=== PATIENT | female | born 1945 ===

== ENCOUNTER 2016-03-19 23:04 | Emergency (ER) | payer MEDICARE, MEDICAID ==
[2016-03-19 23:05] VITALS: BMI 34.3
[2016-03-19 23:24] VITALS: BP 117/53; PULSE 85; RESP 17; TEMP 98.9; O2SAT 95
[2016-03-20] MEDS ORDERED: Tmp-Smz 800 mg-160 mg DS Tab PO STA (00:26)
--- NOTE | 2016-03-20 00:30 | ED PDOC ---
Arrival/HPI - General Chief Complaint: Abnormal Skin Integrity Time Seen by Provider: 03/20/16 00:06 Historian: Patient - History of Present Illness Narrative History of Present Illness (Text): 03/20/16 00:30 71yo female with PMHx of ESRD on dialysis, hypertension and diabetes who present to ER for infected cyst on her back. The family members who was by the bedside states patient have had the cyst intermittently for 3years now. States it became infected last year and resolved with antibiotic. It became swollen and painful few days ago. States they were applying warm compress to the area and it opened tonight and they drained it. They said she was given Clindamycin last year for the abscess but she didn't take the medication as was prescribed. States she took one of the clindamycin tonight. She denies pain to the area. Denies fever, chills, any other complaint. Past Medical History - Provider Review Nursing Documentation Reviewed: Yes - Infectious Disease Hx of Infectious Diseases: None - Tetanus Immunization Tetanus Immunization: Unknown - Cardiac Hx Cardiac Disorders: Yes Hx SC: Yes Hx Hypertension: Yes - Pulmonary Hx Chronic Obstructive Pulmonary Disease (COPD): Yes - Neurological Hx Neurological Disorder: No HX Cerebrovascular Accident: Yes (Rt. sided) Hx Paralysis: No - HEENT Hx Cataracts: Yes Hx Glaucoma: Yes - Renal Hx Renal Failure: Yes (On dialysis) - Endocrine/Metabolic Hx Diabetes Mellitus Type 2: Yes - Hematological/Oncological Hx Blood Disorders: Yes Hx Blood Transfusions: Yes Hx Blood Transfusion Reaction: No - Integumentary Hx Dermatological Disorder: Yes Other/Comment: cellulitis, 4cm x 5cm cellulitis to upper back small dry wound in center surrounded by dark red skin, small 1cm round dry wound to left of wound - Musculoskeletal/Rheumatological Hx Arthritis: Yes - Gastrointestinal Hx Gastrointestinal Disorders: No - Genitourinary/Gynecological Hx Genitourinary Disorders: No - Psychiatric Hx Psychophysiologic Disorder: Yes Hx Depression: Yes Hx Emotional Abuse: No Hx Physical Abuse: No Hx Substance Use: No - Past Surgical History Past Surgical History: No Previous - Surgical History Hx Cholecystectomy: Yes Hx Hysterectomy: Yes Other/Comment: lav graft removal graft, wounde debbridement - Anesthesia Hx Anesthesia Reactions: No Hx Malignant Hyperthermia: No - Suicidal Assessment Feels Threatened In Home Enviroment: No Family/Social History - Physician Review Nursing Documentation Reviewed: Yes Family/Social History: Unknown Family HX Smoking Status: Never Smoked Hx Alcohol Use: No Hx Substance Use: No Hx Substance Use Treatment: No Allergies/Home Meds Allergies/Adverse Reactions: Allergies FISH Allergy (Verified 03/19/16 23:17) RASH morphine Allergy (Verified 03/19/16 23:17) ANAPHYLAXIS oxycodone Allergy (Verified 03/19/16 23:17) ANAPHYLAXIS Penicillins Allergy (Verified 03/19/16 23:17) ANAPHYLAXIS steroids Allergy (Uncoded 03/19/16 23:17) ANAPHYLAXIS Home Medications: Home Meds Medication Instructions Recorded Confirmed Albuterol Sulfate [Proair Hfa] 0.09 mg IH Q6 05/30/12 11/18/15 Carvedilol [Coreg] 3.125 mg PO DAILY 05/30/12 11/18/15 Insulin Aspar/Insulin N 70/30 43 units SC PRN PRN 06/15/12 11/18/15 [Novolog Mix 70/30-U/ml 3Ml] Esomeprazole Magnesium [Nexium] 40 mg PO DAILY 10/26/13 11/18/15 Atorvastatin [Lipitor] 0 mg PO DAILY 09/16/15 11/18/15 Clopidogrel [Plavix] 75 mg PO DAILY 09/16/15 11/18/15 Insulin Glargine, Recombina 35 units SC HS 09/16/15 11/18/15 [Lantus] Insulin Lispro [Humalog] 1 units SC PRN PRN 09/16/15 11/18/15 Losartan [Cozaar] 0 mg PO DAILY 09/16/15 11/18/15 Calcium Acetate [Phoslo] 667 mg PO TID 11/18/15 11/18/15 Brimonidine 0.2% [Alphagan 0.2% 1 drop OD Q8 11/19/15 11/19/15 Opht] Latanoprost 0.005% Opht [Xalatan 1 drop OD HS 11/19/15 11/19/15 Opht] Review of Systems - Physician Review All systems were reviewed & negative as marked: Yes - Review of Systems Constitutional: Normal Eyes: Normal ENT: Normal Respiratory: Normal Cardiovascular: Normal Gastrointestinal: Normal Genitourinary Female: Normal Musculoskeletal: Normal Skin: Abscess Neurological: Normal Endocrine: Normal Hemo/Lymphatic: Normal Psychiatric: Normal Physical Exam Vital Signs Reviewed: Yes Vital Signs Temp Pulse Resp BP Pulse Ox 03/19/16 23:18 98.9 F 85 17 117/53 L 95 Temperature: Afebrile Blood Pressure: Normal Pulse: Regular Respiratory Rate: Normal Appearance: Positive for: Well-Appearing, Non-Toxic, Comfortable Pain Distress: None Mental Status: Positive for: Alert and Oriented X 3 Finger Stick Blood Glucose: 273 - Systems Exam Head: Present: Atraumatic, Normocephalic Pupils: Present: PERRL Extroacular Muscles: Present: EOMI Conjunctiva: Present: Normal Mouth: Present: Moist Mucous Membranes Neck: Present: Normal Range of Motion Respiratory/Chest: Present: Clear to Auscultation, Good Air Exchange. No: Respiratory Distress, Accessory Muscle Use Cardiovascular: Present: Regular Rate and Rhythm, Normal S1, S2. No: Murmurs Abdomen: Present: Normal Bowel Sounds. No: Tenderness, Distention, Peritoneal Signs Back: Present: Normal Inspection Upper Extremity: Present: Normal Inspection. No: Cyanosis, Edema Lower Extremity: Present: Normal Inspection. No: Edema Neurological: Present: GCS=15, CN II-XII Intact, Speech Normal Skin: Present: Warm, Dry, Normal Color, Abscess (Opened drained abscess noted on right sided upper back. ). No: Rashes Psychiatric: Present: Alert, Oriented x 3, Normal Insight, Normal Concentration Medical Decision Making ED Course and Treatment: 03/20/16 00:35 Wound cleansed with NS and dressed. Pt tolerated. Pt placed on Bactrim DS and advised to continue with clindamycin as was directed She states she have a surgeon and plans to f/u with her surgeon for removal of the sack. She was advised TRT ER for any new or worsening symptoms. Disposition/Present on Arrival - Present on Arrival Any Indicators Present on Arrival: No History of DVT/PE: Yes History of Uncontrolled Diabetes: Yes Urinary Catheter: No History of Decub. Ulcer: No History Surgical Site Infection Following: None - Disposition Have Diagnosis and Disposition been Completed?: Yes Diagnosis: Abscess Disposition: HOME/ ROUTINE Disposition Time: 00:40 Patient Plan: Discharge Patient Problems: Current Active Problems Problem Status Diagnosed Abscess Acute Mastoiditis of both sides Acute Condition: STABLE Discharge Instructions (ExitCare): Abscess (ED) Additional Instructions: Follow up with your doctor/surgeon Return to ER for any new or worsening symptoms Prescriptions: Sulfamethoxazole/Trimethoprim [Bactrim DS 800 mg-160 mg] 1 tab PO BID #10 tab Referrals: Hardik Ashley MD [Staff Provider] - Follow up with primary
== END 2016-03-20 00:45 | disposition home or self-care (01) ==
LOC: ED 23:04
DX: L02.212 Cutaneous abscess of back [any part, except buttock and flank] (principal); Z88.0 Allergy status to penicillin; I12.0 Hypertensive chronic kidney disease with stage 5 chronic kidney disease or end stage renal disease; N18.6 End stage renal disease; Z99.2 Dependence on renal dialysis; E11.9 Type 2 diabetes mellitus without complications; J44.9 Chronic obstructive pulmonary disease, unspecified
CPT/HCPCS: 82948; 99282; J7030

== ENCOUNTER 2016-06-15 14:25 | Emergency (ER) | payer OTHER, MEDICAID ==
[2016-06-15 14:26] VITALS: BMI 34.3
[2016-06-15 14:56] VITALS: BP 118/70; PULSE 94; RESP 20; TEMP 99.4; O2SAT 96
--- NOTE | 2016-06-15 15:38 | ED PDOC ---
Arrival/HPI - General Chief Complaint: Trauma Time Seen by Provider: 06/15/16 15:16 Historian: Patient - History of Present Illness Narrative History of Present Illness (Text): 06/15/16 15:33 71yo female with PMH history of Diabets, hypertension, COPD, ESRD and on hemodialysis who present with the son by the bedside for complaint right hip. lower back, thigh and knee pain s/p trauma. The son states he fell on Friday and Friday(yesterday). she reports mechanical fall. She usually walks with a walker. states her knee hit an object in her bathroom and she fell backward. Admits to LOC. Took Tylenol with some relieve yesterday. Denies urinary/fecal incontinence, focal weakness, nausea, vomiting, abdominal pain, saddle anesthesia, any other complaint. Past Medical History - Provider Review Nursing Documentation Reviewed: Yes - Infectious Disease Hx of Infectious Diseases: None - Tetanus Immunization Tetanus Immunization: Unknown - Reproductive Menopause: Yes - Cardiac Hx Cardiac Disorders: Yes Hx OK: Yes Hx Hypertension: Yes - Pulmonary Hx Chronic Obstructive Pulmonary Disease (COPD): Yes - Neurological Hx Neurological Disorder: No HX Cerebrovascular Accident: Yes (Rt. sided) Hx Paralysis: No - HEENT Hx Cataracts: Yes Hx Glaucoma: Yes - Renal Date of Last Dialysis Treatment: 06/14/16 Hx Renal Failure: Yes (On dialysis) - Endocrine/Metabolic Hx Diabetes Mellitus Type 2: Yes - Hematological/Oncological Hx Blood Disorders: Yes Hx Blood Transfusions: Yes Hx Blood Transfusion Reaction: No - Integumentary Hx Dermatological Disorder: Yes Other/Comment: cellulitis, 4cm x 5cm cellulitis to upper back small dry wound in center surrounded by dark red skin, small 1cm round dry wound to left of wound - Musculoskeletal/Rheumatological Hx Arthritis: Yes - Gastrointestinal Hx Gastrointestinal Disorders: No - Genitourinary/Gynecological Hx Genitourinary Disorders: No - Psychiatric Hx Psychophysiologic Disorder: Yes Hx Depression: Yes Hx Emotional Abuse: No Hx Physical Abuse: No Hx Substance Use: No - Past Surgical History Past Surgical History: No Previous - Surgical History Hx Cholecystectomy: Yes Hx Hysterectomy: Yes Other/Comment: lav graft removal graft, wounde debbridement - Anesthesia Hx Anesthesia Reactions: No Hx Malignant Hyperthermia: No - Suicidal Assessment Feels Threatened In Home Enviroment: No Family/Social History - Physician Review Nursing Documentation Reviewed: Yes Family/Social History: Unknown Family HX Smoking Status: Never Smoked Hx Alcohol Use: No Hx Substance Use: No Hx Substance Use Treatment: No Allergies/Home Meds Allergies/Adverse Reactions: Allergies FISH Allergy (Verified 06/15/16 14:56) RASH morphine Allergy (Verified 06/15/16 14:56) ANAPHYLAXIS oxycodone Allergy (Verified 06/15/16 14:56) ANAPHYLAXIS Penicillins Allergy (Verified 06/15/16 14:56) ANAPHYLAXIS steroids Allergy (Uncoded 03/19/16 23:17) ANAPHYLAXIS Home Medications: Home Meds Medication Instructions Recorded Confirmed Albuterol Sulfate [Proair Hfa] 0.09 mg IH Q6 05/30/12 06/15/16 Carvedilol [Coreg] 3.125 mg PO DAILY 05/30/12 06/15/16 Insulin Aspar/Insulin N 70/30 43 units SC PRN PRN 06/15/12 06/15/16 [Novolog Mix 70/30-U/ml 3Ml] Esomeprazole Magnesium [Nexium] 40 mg PO DAILY 10/26/13 06/15/16 Atorvastatin [Lipitor] 0 mg PO DAILY 09/16/15 06/15/16 Clopidogrel [Plavix] 75 mg PO DAILY 09/16/15 06/15/16 Insulin Glargine, Recombina 35 units SC HS 09/16/15 06/15/16 [Lantus] Insulin Lispro [Humalog] 1 units SC PRN PRN 09/16/15 06/15/16 Losartan [Cozaar] 0 mg PO DAILY 09/16/15 06/15/16 Calcium Acetate [Phoslo] 667 mg PO TID 11/18/15 06/15/16 Brimonidine 0.2% [Alphagan 0.2% 1 drop OD Q8 11/19/15 06/15/16 Opht] Latanoprost 0.005% Opht [Xalatan 1 drop OD HS 11/19/15 06/15/16 Opht] Review of Systems - Physician Review All systems were reviewed & negative as marked: Yes - Review of Systems Constitutional: Normal Eyes: Normal ENT: Normal Respiratory: Normal Cardiovascular: Normal Gastrointestinal: Normal Genitourinary Female: Normal Musculoskeletal: Arthralgias (Right thigh/knee), Back Pain Skin: Normal Neurological: Normal Endocrine: Normal Hemo/Lymphatic: Normal Psychiatric: Normal Physical Exam Vital Signs Reviewed: Yes Vital Signs Temp Pulse Resp BP Pulse Ox 06/15/16 14:51 99.4 F 94 H 20 118/70 96 Temperature: Afebrile Blood Pressure: Normal Pulse: Regular Respiratory Rate: Normal Appearance: Positive for: Well-Appearing, Non-Toxic, Comfortable Pain Distress: None Mental Status: Positive for: Alert and Oriented X 3 - Systems Exam Head: Present: Atraumatic, Normocephalic Pupils: Present: PERRL Extroacular Muscles: Present: EOMI Conjunctiva: Present: Normal Mouth: Present: Moist Mucous Membranes Neck: Present: Normal Range of Motion Respiratory/Chest: Present: Clear to Auscultation, Good Air Exchange. No: Respiratory Distress, Accessory Muscle Use Cardiovascular: Present: Regular Rate and Rhythm, Normal S1, S2. No: Murmurs Abdomen: Present: Normal Bowel Sounds. No: Tenderness, Distention, Peritoneal Signs Back: Present: Paraspinal Tenderness (Lower paralumbar tenderness), Pain with Leg Raise (Right SLR). No: Midline Tenderness Upper Extremity: Present: Normal Inspection. No: Cyanosis, Edema Lower Extremity: Present: NORMAL PULSES, Normal ROM (With pain on internal adduction and flexion of knee'), Tenderness (Right lateral hip; proximal thigh and knee), Neurovascularly Intact. No: Edema, Cyanosis, Swelling, Erythema, Deformity, Temperature Abnormalties Neurological: Present: GCS=15, CN II-XII Intact, Speech Normal, Motor Func Grossly Intact, Normal Sensory Function, Normal Cerebellar Funct, Norm Deep Tendon Reflexes, Memory Normal, Other (No focal neurological deficit) Skin: Present: Warm, Dry, Normal Color, Abscess (very small tender indurated abscess approximately 1 x 1cm noted on left axillae). No: Rashes Psychiatric: Present: Alert, Oriented x 3, Normal Insight, Normal Concentration Medical Decision Making ED Course and Treatment: 06/15/16 17:49 PT in ED with her son for right sided lower back/hip and leg pain s/p trauma. PT was given tylenol in ED. She states she will only take Tylenol. Head CT - No acute finding HIP CT - No acute fracture. Infiltration of greater trochanter secondary to posttraumatic changes noted. Right knee and femur xray - No acute fracture. DJD noted. Result was DW both patient and her son. The son states patient ambulated with difficulty secondary to the pain. She was offered admission for pain control hence she lives by her self. Both her and the son however declined admission. The son states she will stay with the patient until Friday when he goes back to work. Patient also declined any other analgesic rx. States she will take Tylenol at home. While she was in ED she reported small tender abscess on her left axillae. She requested abx for it and admitted to histories of abscess in the past. She Denies fever, chills, any other complaint. - RAD Interpretation Radiology Orders: 06/15/16 15:16 HEAD W/O CONTRAST [CT] Stat 06/15/16 15:17 HIP WITHOUT CONTRAST RIGHT [CT] Stat 06/15/16 15:18 Femur Right [FEMUR 1 VIEW RT] [RAD] Stat KNEE W PATELLA RIGHT 3 VIEW [RAD] Stat - Medication Orders Current Medication Orders: Discontinued Medications Acetaminophen (Tylenol 325mg Tab) 650 mg PO STAT STA Stop: 06/15/16 15:20 Last Admin: 06/15/16 15:59 Dose: 650 mg Disposition/Present on Arrival - Present on Arrival Any Indicators Present on Arrival: No History of DVT/PE: Yes History of Uncontrolled Diabetes: Yes Urinary Catheter: No History of Decub. Ulcer: No History Surgical Site Infection Following: None - Disposition Have Diagnosis and Disposition been Completed?: Yes Diagnosis: Hip sprain, Knee sprain, Back pain, Abscess Disposition: HOME/ ROUTINE Disposition Time: 18:00 Patient Plan: Discharge Condition: STABLE Discharge Instructions (ExitCare): Hip Sprain (ED), Knee Sprain (ED), Abscess ( ED) Additional Instructions: Follow up with your Doctor/Orthopedist Return to ED for any new or worsening symptoms Prescriptions: Clindamycin [Cleocin] 300 mg PO TID #21 cap Referrals: Rivka Lancaster MD [Primary Care Provider] - Follow up with primary Domingo Issa DO [Staff Provider] - Follow up with primary
--- NOTE | 2016-06-15 17:09 | CT ---
PROCEDURE: CT HEAD WITHOUT CONTRAST. HISTORY: LOC secondary to trauma COMPARISON: CT scan brain dated 11/22/2015 TECHNIQUE: Axial computed tomography images were obtained through the head/brain without intravenous contrast. Radiation dose: Total exam DLP = 837.32 mGy-cm. This CT exam was performed using one or more of the following dose reduction techniques: Automated exposure control, adjustment of the mA and/or kV according to patient size, and/or use of iterative reconstruction technique. FINDINGS: HEMORRHAGE: No acute parenchymal, subarachnoid or extra-axial hemorrhage. BRAIN: Mild chronic periventricular white matter ischemic changes seen extending peripherally into the deep white matter both cerebral hemispheres. Mild -moderate generalized volume loss with slight enlargement of the ventricles and sulci. VENTRICLES: No evidence of obstructive hydrocephalus. CALVARIUM: There are no acute calvarial fractures. Scalp calcifications are again noted consistent with underlying IDDM PARANASAL SINUSES: Rounded mucous retention cyst right maxillary sinus. MASTOID AIR CELLS: Unremarkable as visualized. No inflammatory changes. OTHER FINDINGS: Status post right-sided cataract surgery. Findings suggest underlying exophthalmos however correlation with ophthalmologic examination. IMPRESSION: No acute intracranial hemorrhage. Mild chronic white matter ischemic changes. Mild moderate volume loss
--- NOTE | 2016-06-15 17:17 | CT ---
PROCEDURE: CT of the Right Hip. HISTORY: hip pain s/p trauma COMPARISON: None available. TECHNIQUE: Contiguous axial images of the right hip were obtained. Coronal and sagittal reformats were generated. Radiation dose. Total DLP = 667.85 mGy-cm This CT exam was performed using one or more of the following dose reduction techniques: Automated exposure control, adjustment of the mA and/or kV according to patient size, and/or use of iterative reconstruction technique. FINDINGS: BONES: Unremarkable. No fracture or focal lesion. Femoral head maintains normal contour. RIGHT HIP JOINT: No evidence of dislocation. There is joint space narrowing and mild productive changes seen arising from the superolateral margin of the right acetabular rim. Degenerative changes right SI joint and pubic symphysis. . SOFT TISSUES: There may be some minimal infiltration changes within the lateral soft tissues of the right thigh overlying the greater trochanter possibly due to trauma. No evidence of organized collection or hematoma. Extensive vascular calcifications are present. . . IMPRESSION: No acute fractures. Mild DJD. Mild infiltration changes within the subcutaneous tissues overlying the right greater trochanter likely posttraumatic in origin. No evidence of significant hematoma or organized collection
--- NOTE | 2016-06-16 14:29 | RAD ---
PROCEDURE: AP sunrise and cross-table lateral views right knee performed HISTORY: knee pain s/p trauma COMPARISON: None. FINDINGS: BONES: No evidence of acute displaced fracture nor dislocation. JOINTS: Calcifications seen within the medial and lateral compartments of the right knee consistent with chondrocalcinosis. Rule out CPPD. Mild tricompartmental degenerative joint changes are present. Diffuse demineralization. JOINT EFFUSION: Small suprapatellar joint effusion. OTHER FINDINGS: Vascular calcifications. No radiopaque foreign bodies. IMPRESSION: No acute fractures. Intraarticular calcifications consistent with chondrocalcinosis ; rule out CPPD. Mild tricompartmental DJD as detailed above
--- NOTE | 2016-06-16 14:49 | RAD ---
PROCEDURE: Right femur dated 06/15/2016. HISTORY: thigh pain s/p trauma COMPARISON: Correlation made with concurrent CT scan of the pelvis and right hip dated 06/15/2016 comparison also made with concurrent radiographs right knee. TECHNIQUE: Two AP views of the right femur performed. Note that the examination is limited due to the lack of lateral view. FINDINGS: No evidence of acute displaced fracture nor dislocation. Right femoral head is appropriately located within the right acetabulum. Degenerative changes right hip joint present. Vascular calcifications are also present. There are calcifications within the medial and lateral compartments of the right knee consistent with chondrocalcinosis. Rule out CPPD. IMPRESSION: Limited study demonstrating no definitive fracture. DJD right hip. Chondrocalcinosis of the right knee; rule out CPPD
== END 2016-06-15 18:11 | disposition home or self-care (01) ==
LOC: ED 14:25
DX: S73.101A Unspecified sprain of right hip, initial encounter (principal); S83.91XA Sprain of unspecified site of right knee, initial encounter; W19.XXXA Unspecified fall, initial encounter; M54.9 Dorsalgia, unspecified; L02.412 Cutaneous abscess of left axilla; I12.0 Hypertensive chronic kidney disease with stage 5 chronic kidney disease or end stage renal disease; N18.6 End stage renal disease; Z99.2 Dependence on renal dialysis; E11.9 Type 2 diabetes mellitus without complications

== ENCOUNTER 2016-08-09 21:57 | Observation (INO) | payer OTHER ==
[2016-08-09 21:57] VITALS: BMI 34.3
--- NOTE | 2016-08-09 22:38 | ED PDOC ---
Arrival/HPI - General Chief Complaint: Dizziness/Lightheaded Time Seen by Provider: 08/09/16 22:38 Historian: Patient, Family (Son) - History of Present Illness Narrative History of Present Illness (Text): 08/09/16 22:37 Debby Olguin is 71 year old female, whose past medical history includes ESRD ( hemodialysis on M/W/F), diabetes, and hypertension, who presents to the Emergency department status post syncopal episode yesterday while coming out of the shower. Encounter translated in full by patient's son, who feels comfortable translating and denies an official peace officer. Patient states she hit the posterior side of her head on the toilet while falling and is currently complaining of dizziness. Patient was fully dialyzed earlier today. Patient also reports some retrosternal burning, notes she had a history of GERD and symptoms are consistent with previous episodes of acid reflux. Patient denies any chest pain, shortness of breath, nausea, vomiting, diarrhea, back pain, neck pain, headache, focal neurological deficits, vision changes, or any other complaints. PMD: Dr. Lancaster Time/Duration: < week (yesterday) Symptom Course: Unchanged Activities at Onset: Light Context: Standing, Home Past Medical History - Provider Review Nursing Documentation Reviewed: Yes - Infectious Disease Hx of Infectious Diseases: None - Tetanus Immunization Tetanus Immunization: Unknown - Cardiac Hx Cardiac Disorders: Yes Hx OR: Yes Hx Hypertension: Yes - Pulmonary Hx Chronic Obstructive Pulmonary Disease (COPD): Yes - Neurological Hx Neurological Disorder: No HX Cerebrovascular Accident: Yes (Rt. sided) Hx Paralysis: No - HEENT Hx Cataracts: Yes Hx Glaucoma: Yes - Renal Date of Last Dialysis Treatment: 06/14/16 Hx Renal Failure: Yes (On dialysis) - Endocrine/Metabolic Hx Diabetes Mellitus Type 2: Yes - Hematological/Oncological Hx Blood Disorders: Yes Hx Blood Transfusions: Yes Hx Blood Transfusion Reaction: No - Integumentary Hx Dermatological Disorder: Yes Other/Comment: cellulitis, 4cm x 5cm cellulitis to upper back small dry wound in center surrounded by dark red skin, small 1cm round dry wound to left of wound - Musculoskeletal/Rheumatological Hx Arthritis: Yes - Gastrointestinal Hx Gastrointestinal Disorders: No - Genitourinary/Gynecological Hx Genitourinary Disorders: No - Psychiatric Hx Psychophysiologic Disorder: Yes Hx Depression: Yes Hx Emotional Abuse: No Hx Physical Abuse: No Hx Substance Use: No - Past Surgical History Past Surgical History: No Previous - Surgical History Hx Cholecystectomy: Yes Hx Hysterectomy: Yes Other/Comment: lav graft removal graft, wounde debbridement - Anesthesia Hx Anesthesia Reactions: No Hx Malignant Hyperthermia: No - Suicidal Assessment Feels Threatened In Home Enviroment: No Family/Social History - Physician Review Nursing Documentation Reviewed: Yes Family/Social History: Unknown Family HX Smoking Status: Never Smoked Hx Alcohol Use: No Hx Substance Use: No Hx Substance Use Treatment: No Allergies/Home Meds Allergies/Adverse Reactions: Allergies FISH Allergy (Verified 06/15/16 14:56) RASH morphine Allergy (Verified 06/15/16 14:56) ANAPHYLAXIS oxycodone Allergy (Verified 06/15/16 14:56) ANAPHYLAXIS Penicillins Allergy (Verified 06/15/16 14:56) ANAPHYLAXIS steroids Allergy (Uncoded 03/19/16 23:17) ANAPHYLAXIS Home Medications: Home Meds Medication Instructions Recorded Confirmed Albuterol Sulfate [Proair Hfa] 0.09 mg IH Q6 05/30/12 06/15/16 Carvedilol [Coreg] 3.125 mg PO DAILY 05/30/12 06/15/16 Insulin Aspar/Insulin N 70/30 43 units SC PRN PRN 06/15/12 06/15/16 [Novolog Mix 70/30-U/ml 3Ml] Esomeprazole Magnesium [Nexium] 40 mg PO DAILY 10/26/13 06/15/16 Atorvastatin [Lipitor] 0 mg PO DAILY 09/16/15 06/15/16 Clopidogrel [Plavix] 75 mg PO DAILY 09/16/15 06/15/16 Insulin Glargine, Recombina 35 units SC HS 09/16/15 06/15/16 [Lantus] Insulin Lispro [Humalog] 1 units SC PRN PRN 09/16/15 06/15/16 Losartan [Cozaar] 0 mg PO DAILY 09/16/15 06/15/16 Calcium Acetate [Phoslo] 667 mg PO TID 11/18/15 06/15/16 Brimonidine 0.2% [Alphagan 0.2% 1 drop OD Q8 11/19/15 06/15/16 Opht] Latanoprost 0.005% Opht [Xalatan 1 drop OD HS 11/19/15 06/15/16 Opht] Review of Systems - Physician Review All systems were reviewed & negative as marked: Yes Physical Exam - Physical Exam Narrative Physical Exam (Text): - Review of Systems Constitutional: Normal. absent: Fatigue, Weight Change, Fevers Eyes: Normal ENT: Normal Respiratory: Normal absent: SOB, Cough, Sputum Cardiovascular: +syncope absent: Chest pain, Palpitations Gastrointestinal: Normal absent: Abdominal pain, Diarrhea, Nausea, Vomiting Genitourinary: Normal. absent: Dysuria, Frequency, Hematuria Musculoskeletal: Normal. absent: Arthralgias, Back Pain, Neck Pain Skin: Normal Neurological: +dizziness absent: Focal Weakness Endocrine: Normal Hemo/Lymphatic: Normal Psychiatric: Normal - Physical exam Patient appears age appropriate, speaking full sentences without difficulty Head atraumatic. No nasal bone deformity or tenderness, no facial or jaw pain/ swelling. No neck midline tenderness, thoracic and lumbar spine with no midline tenderness. Pt moving b/l upper and lower extremities without difficulty, 5/5 strength, with full active and passive ROM. Distal neurovasc fully intact. Abd soft/nt/nd, no hematomas, no peritoneal signs. Neg. pelvic rock. - Systems Exam Head: Present: Atraumatic, Normocephalic Pupils: Present: PERRL Extraocular Muscles: Present: EOMI Conjunctiva: Present: Normal Mouth: Present: Moist Mucous Membranes Neck: Present: Normal Range of Motion. No: MIDLINE TENDERNESS, Paraspinal Tenderness Respiratory/Chest: Present: Clear to Auscultation, Good Air Exchange. No: Respiratory Distress, Accessory Muscle Use, Tachypneic Cardiovascular: Present: Regular Rate and Rhythm, Normal S1, S2, Peripheral Pulses Present. No: Murmurs Abdomen: Present: Normal Bowel Sounds, No: Tenderness, Peritoneal Signs, Rebound, Guarding, Distention Back: Present: Normal Inspection. No: Midline Tenderness, Paraspinal Tenderness Upper Extremity: Present: Normal Inspection. No: Cyanosis, Edema Lower Extremity: Present: Normal Inspection. No: Edema Neurological: Present: GCS=15, Speech Normal, cranial nerves II through XII fully intact with no cerebellar abnormality, neuro-sensory fully intact. No focal neurological deficits. Skin: Present: Warm, Dry, Normal Color. No: Rashes Psychiatric: Present: Alert, Oriented x 3, Normal Insight, Normal Concentration Vital Signs Reviewed: Yes Vital Signs Temp Pulse Resp BP Pulse Ox 08/10/16 02:04 81 18 120/57 L 93 L 08/10/16 00:16 88 18 141/68 93 L 08/09/16 22:18 97.5 F L 98 H 18 142/78 98 Temperature: Afebrile Blood Pressure: Normal Pulse: Regular Respiratory Rate: Normal Appearance: Positive for: Well-Appearing, Non-Toxic, Comfortable Pain Distress: None Mental Status: Positive for: Alert and Oriented X 3 Medical Decision Making ED Course and Treatment: 08/09/16 22:37 Impression: 71 year old female presents s/p syncopal episodes 2 days with dizziness. Exam in benign. Differential Diagnosis include but are not limited to: syncope Plan: -- CT Head w/o contrast -- EKG -- Chest X-ray -- Labs, cardiac enzymes -- Tylenol -- Protonix -- Reassess and disposition Prior Visits: Notes and results from previous visits were reviewed. On 06/15/2016, pt was seen in the Emergency department right hip pain, lower back pain, thigh and knee pain s/p mechanical fall and left axilla abscess. [facility]. Progress Notes: EKG: Ordered, reviewed, and independently interpreted the EKG. Rate : 92 BPM Rhythm : NSR Interpretation : No ST-segment elevations or depressions, no T-wave inversions, normal intervals. Comparison : No acute change from 11/22/2015. 08/10/16 00:34 Reviewed radiology, Chest X-ray shows cardiomegaly, no obvious infiltrates or effusions. CT Head shows: Dictated and Authenticated by: Tomer Tena MD FINDINGS: Brain: Mild atrophy. No intracranial hemorrhage. No mass. No definite edema. Ventricles: No hydrocephalus. Bones/joints: No acute fracture. Soft tissues: Unremarkable. Vasculature: Atherosclerotic disease of intracranial arteries. Sinuses: Minimal focal mucosal thickening or fluid of RIGHT sphenoid sinus. Mastoid air cells: Partial opacification of mastoids, present on previous examination. IMPRESSION: 1. No acute intracranial abnormality. Acute infarction may be CT occult within first 24 hours. If a focal deficit persists, consider followup CT or MRI for further evaluation. 2. Mastoid disease. 3. Incidental/non-acute findings are described above. Medical service paged. 08/10/16 01:[address] Duncan in detail, who is aware and agrees with plan. Accepts pt in to his service. Pt will go to Telemetry observation. Requests Dr. Bah, Dr. Hensley, and Dr. Snow on consult. Discussed results and hospital observation plan with pt and son, who are aware and verbalize understanding. - Lab Interpretations Lab Results: 08/09/16 23:06 08/09/16 23:06 Lab Results 08/09/16 23:06: Sodium 139, Potassium 4.5, Chloride 99, Carbon Dioxide 30, Anion Gap 15, BUN 14, Creatinine 3.0 H, Est GFR ( Amer) 19, Est GFR (Non- Af Amer) 15, Random Glucose 294 H, Calcium 9.6, Total Bilirubin 0.5, AST 36, ALT 39, Alkaline Phosphatase 217 H, Lactate Dehydrogenase 420, Total Creatine Kinase 31 L, Troponin I 0.01 D, Total Protein 8.4 H, Albumin 3.8, Globulin 4.6 , Albumin/Globulin Ratio 0.8 L 08/09/16 23:06: PT 11.2, INR 1.04, APTT 28.9 08/09/16 23:06: WBC 6.1, RBC 2.66 L, Hgb 10.1 L, Hct 32.7 L, MCV 122.9 H, MCH 38.0 H, MCHC 30.9 L, RDW 14.2, Plt Count 154, MPV 10.2, Gran % 73.3 H, Lymph % ( Auto) 18.9 L, Harper % (Auto) 5.2, Eos % (Auto) 2.4, Baso % (Auto) 0.2, Gran # 4.50, Lymph # 1.2, Harper # 0.3, Eos # 0.2, Baso # 0.01 I have reviewed the lab results: Yes - RAD Interpretation Radiology Orders: 08/09/16 23:01 HEAD W/O CONTRAST [CT] Stat CHEST PORTABLE [RAD] Stat Catheterization Laboratory Technician: ED Physician, Radiologist - EKG Interpretation Interpreted by ED Physician: Yes Type: 12 lead EKG Comparison: Com.w/previous EKG - Medication Orders Current Medication Orders: Aspirin (Ecotrin) 81 mg PO DAILY COUNT INCLUDES THE [facility] Last Admin: 08/11/16 09:55 Dose: 81 mg Atorvastatin Calcium (Lipitor) 20 mg PO DIN COUNT INCLUDES THE [facility] Last Admin: 08/10/16 18:53 Dose: 20 mg Clindamycin HCl (Cleocin) 300 mg PO TID COUNT INCLUDES THE [facility] PRN Reason: Protocol Last Admin: 08/11/16 09:54 Dose: 300 mg Clopidogrel Bisulfate (Plavix) 75 mg PO DAILY COUNT INCLUDES THE [facility] Last Admin: 08/11/16 09:55 Dose: 75 mg Enoxaparin Sodium (Lovenox) 30 mg SC DAILY COUNT INCLUDES THE [facility] PRN Reason: Protocol Insulin Detemir (Levemir) 35 unit SC HS COUNT INCLUDES THE [facility] Last Admin: 08/10/16 23:07 Dose: 35 unit Insulin Human Regular (Humulin R Low) 0 units SC ACHS COUNT INCLUDES THE [facility] PRN Reason: Protocol Last Admin: 08/11/16 11:27 Dose: 2 units Losartan Potassium (Cozaar) 50 mg PO DAILY COUNT INCLUDES THE [facility] Last Admin: 08/11/16 09:54 Dose: 50 mg Metoprolol Tartrate (Lopressor) 25 mg PO BID COUNT INCLUDES THE [facility] Last Admin: 08/11/16 09:55 Dose: 25 mg Pantoprazole Sodium (Protonix Ec Tab) 40 mg PO 0600 COUNT INCLUDES THE [facility] Last Admin: 08/11/16 06:25 Dose: 40 mg Sevelamer HCl (Renagel) 1,600 mg PO TID COUNT INCLUDES THE [facility] Last Admin: 08/11/16 09:55 Dose: 1,600 mg Discontinued Medications Acetaminophen (Tylenol 325mg Tab) 975 mg PO STAT STA Stop: 08/09/16 23:18 Last Admin: 08/09/16 23:27 Dose: 975 mg Acetaminophen (Tylenol 325mg Tab) 650 mg PO ONCE STA Stop: 08/10/16 11:48 Last Admin: 08/10/16 13:41 Dose: 650 mg Re-Assess: MAR Pain/Vitals Document 08/10/16 14:41 DC (Rec: 08/10/16 18:54 DC [id number]) Pain Reassessment Is This A Pain ReAssessment? Yes Presence of Pain Presence of Pain No Enoxaparin Sodium (Lovenox) 70 mg SC Q24H COUNT INCLUDES THE [facility] PRN Reason: Protocol Last Admin: 08/10/16 16:17 Dose: 70 mg Pantoprazole Sodium (Protonix Inj) 40 mg IVP STAT STA Stop: 08/09/16 23:04 Last Admin: 08/09/16 23:09 Dose: 40 mg - Scribe Statement The provider has reviewed the documentation as recorded by the Leeanna Junior All medical record entries made by the Leeanna were at my direction and personally dictated by me. I have reviewed the chart and agree that the record accurately reflects my personal performance of the history, physical exam, medical decision making, and the department course for this patient. I have also personally directed, reviewed, and agree with the discharge instructions and disposition. Disposition/Present on Arrival - Present on Arrival Any Indicators Present on Arrival: No History of DVT/PE: Yes History of Uncontrolled Diabetes: Yes Urinary Catheter: No History of Decub. Ulcer: No History Surgical Site Infection Following: None - Disposition Have Diagnosis and Disposition been Completed?: Yes Diagnosis: Syncope Disposition: HOSPITALIZED Disposition Time: 01:25 Patient Plan: Observation Condition: FAIR
[2016-08-09 23:20] LABS: ADD MANUAL DIFF? NO
[2016-08-09 23:23] LABS: BASO # 0.01 K/mm3 (0.0-2.0); BASO % 0.2 % (0.0-3.0); EOS # 0.2 (0.0-0.7); EOS % 2.4 % (1.5-5.0); GRAN % 73.3 % (50.0-68.0); HEMATOCRIT 32.7 % (36.0-48.0); LYMPH # 1.2 (1.2-3.4); LYMPH % 18.9 % (22.0-35.0); MEAN CELL VOLUME 122.9 fL (80.0-105.0); MEAN CORPUSCULAR HGB CONC 30.9 g/dl (31.0-37.0); MEAN PLATELET VOLUME 10.2 fl (7.0-11.0); MONO # 0.3 (0.1-0.6); MONO % 5.2 % (1.0-6.0); PLATELET COUNT 154 10^3/uL (120.0-450.0); RED CELL DISTRIBUTION WIDTH 14.2 % (11.5-14.5); WHITE BLOOD COUNT 6.1 10^3/ul (4.5-11.0)
[2016-08-09 23:34] LABS: INR 1.04 (0.93-1.08); PARTIAL THROMBOPLASTIN TIME 28.9 Seconds (23.7-30.8)
[2016-08-09 23:38] LABS: ALB/GLOB RATIO 0.8 (1.1-1.8); BILIRUBIN,TOTAL 0.5 mg/dL (0.2-1.3); CALCIUM 9.6 mg/dL (8.4-10.5); POTASSIUM 4.5 mmol/L (3.6-5.0); TOTAL PROTEIN 8.4 g/dL (5.8-8.3)
[2016-08-09 23:55] LABS: TROPONIN I 0.01 ng/mL
--- NOTE | 2016-08-10 00:32 | CT ---
EXAM: CT Head Without Intravenous Contrast CLINICAL HISTORY: 71 years old, female; Signs and symptoms; Dizziness; Additional info: Syncope TECHNIQUE: Axial computed tomography images of the head/brain without intravenous contrast. This CT exam was performed using one or more of the following dose reduction techniques: automated exposure control, adjustment of the mA and/or kV according to patient size, and/or use of iterative reconstruction technique. COMPARISON: CT - HEAD W/O CONTRAST 06/15/2016 4:48:21 PM FINDINGS: Brain: Mild atrophy. No intracranial hemorrhage. No mass. No definite edema. Ventricles: No hydrocephalus. Bones/joints: No acute fracture. Soft tissues: Unremarkable. Vasculature: Atherosclerotic disease of intracranial arteries. Sinuses: Minimal focal mucosal thickening or fluid of RIGHT sphenoid sinus. Mastoid air cells: Partial opacification of mastoids, present on previous examination. IMPRESSION: 1. No acute intracranial abnormality. Acute infarction may be CT occult within first 24 hours. If a focal deficit persists, consider followup CT or MRI for further evaluation. 2. Mastoid disease. 3. Incidental/non-acute findings are described above.
--- NOTE | 2016-08-10 09:32 | RAD ---
HISTORY: cough COMPARISON: 11/18/2015 FINDINGS: LUNGS: No active pulmonary disease. PLEURA: No significant pleural effusion identified, no pneumothorax apparent. CARDIOVASCULAR: Mild cardiomegaly OSSEOUS STRUCTURES: No significant abnormalities. VISUALIZED UPPER ABDOMEN: Normal. OTHER FINDINGS: Right-sided dialysis catheter IMPRESSION: No active disease.
--- NOTE | 2016-08-10 12:42 | CON ---
DATE: 08/10/2016 CHIEF COMPLAINT: Syncope. HISTORY OF PRESENT ILLNESS: This is a 71-year-old woman with history of end-stage renal disease on h emodialysis Friday, Friday and Friday, diabetes, hypertension, who came to the hospital status pos t -syncopal episode while coming out of the shower. The patient was getting bathed by her homeland security program specialist and had passed out, hit her head on the toilet, but no loss of consciousness, no concussion symptoms. Currently, she is no longer dizzy. She denies any headache at this time. She was given Tylenol fo r her headaches. Her CAT scan showed no acute intracranial abnormality. She is sitting up in a marcial r, following commands without any difficulty. No history of seizures. PAST MEDICAL HISTORY: Hypertension, diabetes, end-stage renal disease on hemodialysis Friday, and Friday. REVIEW OF SYSTEMS: A 14-point review of systems negative except for the HPI. ALLERGIES: ALLERGIC TO FISH, MORPHINE, OXYCODONE, PENICILLIN, STEROIDS. SOCIAL HISTORY: No illicit drug use, smoking, or ETOH abuse. FAMILY HISTORY: Noncontributory. MEDICATIONS: Reviewed via nurse's reconciliation sheet. PHYSICAL EXAMINATION: VITAL SIGNS: Temperature of 98, pulse rate of 79, blood pressure 118/69, respiratory rate of 18, oxy gen saturation 98% via room air. GENERAL: The patient is sitting up in bed in no acute distress. HEENT: Atraumatic, normocephalic. PERRLA. Extraocular muscles intact. NECK: Supple, no JVD, no adenopathy noted. LUNGS: Clear to auscultation. No adventitious sounds. HEART: S1, S2, normal rate and rhythm. No murmurs, rubs, or gallops. ABDOMEN: Soft, nontender, nondistended. Bowel sounds are present. EXTREMITIES: No clubbing, no cyanosis. Peripheral pulses 2+ felt bilaterally. NEUROLOGIC: The patient is alert, oriented to person, place, month and year. Speech is fluent witho ut any errors. Cranial nerves II-XII are intact. MOTOR: Moves all extremities equally. Toes downgoing bilaterally. SENSORY: Decreased light touch and pinprick up to the calves bilaterally. Decreased vibration of th e toes. DTRs 2+ throughout and 1 at the ankles. COORDINATION: [id number] intact. GAIT: Deferred for now. LABORATORIES: Sodium is 139, potassium 4.5, chloride of 99, carbon dioxide 30, BUN of 14, creatinine of 3. Random glucose of 294. ASSESSMENT AND PLAN: This is a 71-year-old woman with history of diabetes, hypertension, end-stage r enal disease on Mondays, Wednesdays and Fridays for dialysis, who presents post-syncopal event after getting bathed in the shower. Her syncope is most likely a vasovagal type of phenomenon secondary to transient cerebral hypoperfusion. This is not a seizure. At this time, recommend: 1. Keep her blood sugars between 140 to 180. 2. Gentle hydration and follow up with nephrology in regards to her end-stage renal disease. 3. Monitor electrolytes and correct accordingly and get a PT evaluation. No further neurological wo rkup needed at this time. We will sign off. Dario Hensley MD cc: [phone] TT: 08/10/2016 12:42:27 Confirmation # [id number] Dictation # [id number] tn
--- NOTE | 2016-08-10 14:01 | CARD ---
APPROVED REPORT EKG Measurement Heart [id number] NM [id number] <Conclusion> Normal sinus rhythm Possible Anterior infarct, age undetermined Abnormal ECG
[2016-08-10] MEDS ORDERED: Enoxaparin 80 mg Syringe SC SCH (14:15)
[2016-08-10 14:28] LABS: TROPONIN I 0.01 ng/mL
[2016-08-10 20:54] LABS: TROPONIN I 0.01 ng/mL
--- NOTE | 2016-08-10 21:16 | CON ---
DATE: 08/10/2016 SERVICE: Cardiology REASON FOR CONSULTATION AND FOLLOWUP: Cardiac evaluation, history of coronary artery disease, admitt ed with dizziness, neck pain and back pain. BRIEF CLINICAL HISTORY: This is a 71-year-old female with a past medical history of coronary artery disease, status post OH, admitted to [facility], remained for ICU and then floor for 10 days who came in with a complaint of headache, dizziness and back pain. Denies any chest pain, de nies any shortness of breath, denies any palpitation. PAST MEDICAL HISTORY: Significant for end-stage renal disease on dialysis Friday, Friday and ay, hypertension, diabetes, history of coronary artery disease, status post a stent in December at [facility]. SOCIAL HISTORY: Denies smoking. Denies any history of alcohol abuse. Previous cardiac workup: [facility]. According to the patient, the workup was done there with them. Denies any chest pain, shortness of breath, any palpitation. PAST SURGICAL HISTORY: Significant for history of AV fistula and shunt. CURRENT MEDICATIONS: Include Cozaar, insulin, clopidogrel 75 mg, clindamycin, Coreg, atorvastatin, a lbuterol. ALLERGIES: FISH, MORPHINE, OXYCODONE, PENICILLIN, STEROID. REVIEW OF SYSTEMS: As per HPI. PHYSICAL EXAMINATION: VITAL SIGNS: Temperature afebrile, heart rate 79, blood pressure 182/69. HEENT: PERRLA. Extraocular muscles intact. NECK: Supple. No carotid bruit or thyromegaly. CHEST: Clear to auscultation. HEART: S1, S2 regular. ABDOMEN: Soft. EXTREMITIES: Clubbing and cyanosis negative. EKG shows normal sinus, poor R-wave progression, heart rate 92. Blood workup as follows: WBC ____, hemoglobin ____, hematocrit 32.7, platelet count 154. Chemistry shows sodium ____, potassium 4.5, chloride ____, carbon dioxide 30, anion gap of 15, BUN ____ creatin ine 3. IMPRESSION: End-stage renal disease on dialysis Friday, Friday and Friday, history of coronary ar muna disease, history of a stent in 12/2015, admitted to [facility], diabetes, hypert ension, hyperlipidemia, obesity, being followed by Dr. ____ group according to patient. Workup was d one by ____ group. RECOMMENDATION: We will add on third set of enzymes, CPK and troponin as well ____ negative, we will discontinue telemetry. No further cardiac workup. The patient needs to be followed with ____ nigel am[facility]. No evidence of acute OH so far, no evidence of acute coronary syndrome, but we will follow the second set of enzymes and will make the decision. We will follow with you. Thank you, Dr. Duncan, for providing the opportunity in taking care of this patient. Joss Bah MD cc: [id number] TT: 08/10/2016 14:30:23 Confirmation # [id number] Dictation # [id number] rn
[2016-08-10] MEDS ORDERED: Insulin Detemir 100 units/ml Vial (Levemir) SC SCH (22:00)
[2016-08-10] MEDS: Insulin Reg-LOW-Coverage SC SCH (23:04)
[2016-08-11 01:19] VITALS: O2SAT 100
[2016-08-11] MEDS ORDERED: Pantoprazole 40 mg EC Tab PO SCH (06:00)
[2016-08-11 06:15] VITALS: RESP 19
[2016-08-11 07:29] LABS: ADD MANUAL DIFF? NO
[2016-08-11 08:01] LABS: BASO # 0.03 K/mm3 (0.0-2.0); BASO % 0.4 % (0.0-3.0); EOS # 0.2 (0.0-0.7); EOS % 3.1 % (1.5-5.0); GRAN # 4.86 (1.4-6.5); GRAN % 69.5 % (50.0-68.0); HEMATOCRIT 34.5 % (36.0-48.0); LYMPH # 1.4 (1.2-3.4); LYMPH % 20.6 % (22.0-35.0); MEAN CELL VOLUME 121.1 fL (80.0-105.0); MEAN CORPUSCULAR HEMOGLOBIN 37.9 pg (25.0-35.0); MEAN CORPUSCULAR HGB CONC 31.3 g/dl (31.0-37.0); MEAN PLATELET VOLUME 10.4 fl (7.0-11.0); MONO # 0.5 (0.1-0.6); MONO % 6.4 % (1.0-6.0); PLATELET COUNT 162 10^3/uL (120.0-450.0); RED CELL DISTRIBUTION WIDTH 14.2 % (11.5-14.5)
[2016-08-11 08:02] LABS: BLOOD UREA NITROGEN 31 mg/dL (7-21); CALCIUM 9.4 mg/dL (8.4-10.5); CARBON DIOXIDE 27 mmol/L (21-33); CHLORIDE 100 mmol/L (98-107); CHOLESTEROL 78 mg/dL (130-200); GFR AFRICAN-AMERICAN 10; GLUCOSE,RANDOM 143 mg/dL (70-110); SODIUM 139 mmol/L (132-148)
[2016-08-11 08:17] LABS: TROPONIN I < 0.01 ng/mL
[2016-08-11] MEDS: Insulin Reg-LOW-Coverage SC SCH ×2 (09:37→11:27)
[2016-08-11 12:47] VITALS: BP 104/74; PULSE 68; TEMP 98.4
--- NOTE | 2016-08-11 15:47 | CON ---
DATE: 08/11/2016 The patient admitted for Dr. Duncan. REFERRING PHYSICIAN: Dr. Duncan REASON FOR CONSULTATION: Evaluation of a patient known to us, history of end-stage renal disease who presents with a fall and possible syncopal episode while coming out of the shower. HISTORY OF PRESENT ILLNESS: The patient is a 71-year-old female with a history of end-stage renal disease on chronic maintenance hemodialysis at [facility] Friday, Friday, Friday, last dialysis was Friday, history of GERD, history of hypertension, history of insulin-dependent juan betes mellitus with diabetic nephropathy, history of asthma, history of ASHD, status post PTCA stent, history of a failed AV fistula with an indwelling right PermCath. History of anemia secondary to ch ronic kidney disease, secondary hyperparathyroidism, and hyperlipidemia. The patient presents with a near syncopal episode. She fell or perhaps stumbled coming out of the shower. The patient was brou ght to the Emergency Room for evaluation and admitted to observation on telemetry. We are asked to e valuate patient to provide dialysis services as necessary. PAST MEDICAL HISTORY: Significant for ESRD, GERD, hypertension, IDDM, diabetic nephropathy, asthma, ASHD, anemia, secondary hyperparathyroidism and hyperlipidemia. HOME MEDICATIONS: Include that of losartan, eyedrops, insulin, Nexium, Plavix, Cleocin, Coreg, PhosL o, Alphagan, Lipitor, and albuterol. ALLERGIES: THE PATIENT IS ALLERGIC TO FISH, MORPHINE, OXYCODONE, PENICILLIN AND STEROIDS. CURRENT MEDICATIONS IN HOSPITAL: Include that of Cleocin, Cozaar, Ecotrin, insulin, Lipitor, Lopress or, Plavix, Protonix, and Renagel. SOCIAL HISTORY: No history of cigarette smoking, no history of alcohol use. FAMILY HISTORY: Reviewed and is noncontributory. REVIEW OF SYSTEMS: Ten plus systems reviewed with the patient, all negative except for what is noted above. PHYSICAL EXAMINATION: GENERAL: The patient is currently comfortable, ambulating in the room on telemetry. VITAL SIGNS: Blood pressure ranging from 137-160 systolic, diastolic 62-104. Pulse rate 90. Temper ature 98.7, respiratory rate 19. Pulse ox is 100%. HEENT: Normocephalic, atraumatic. Conjunctivae are pink. Sclerae are nonicteric. Pupils equal, re active to light and accommodation. Extraocular muscles are intact. NECK: Supple, no neck vein distention, no thyromegaly, no lymphadenopathy, no bruits. CHEST: Clear to auscultation and percussion. No rales, no rhonchi, no wheezing. Positive PermCath right chest wall. CARDIOVASCULAR: Regular rate and rhythm without audible murmurs, rubs, or gallops. ABDOMEN: Soft. Bowel sounds normal. No rebound, no guarding, no masses. EXTREMITIES: Show no cyanosis, clubbing or edema. Distal lower extremity pulses are 1-2+. NEUROLOGIC: Shows her to be alert, oriented x 3 with no gross focal, motor or sensory deficits noted . IMAGING: Admitting head CT is negative for acute findings. Admitting chest x-ray is negative. Admi tting EKG shows a normal sinus rhythm. On telemetry, patient remains in sinus rhythm. LABORATORIES: CBC: White blood cell count 7.0, hemoglobin 10.8 with a platelet count of 162,000. C oags are normal. Chemistries show normal electrolytes. Potassium was 5.0 today. BUN 31 with a crea tinine of 5.2, glucose is 143. Calcium is 9.4. CPK is negative. Troponins are negative. Cholester ol values are normal. TSH level is normal. ASSESSMENT: 1. Status post fall, perhaps near syncopal episode. No evidence for any cardiac etiology. Neurolog ical evaluation to date has been negative. The patient continues to be monitored on telemetry. 2. End-stage renal disease. The patient will continue Friday, Friday, Friday dialysis. She is s cheduled for dialysis tomorrow and if she is discharged later today, this can happen in the outpatien t setting. 3. History of gastroesophageal reflux disease, currently stable on proton pump inhibitor therapy. 4. History of hypertension. Blood pressure control is acceptable on present medical therapy. 5. Insulin dependent diabetes mellitus. Continue long-acting and sliding scale insulin. 6. History of asthma. The patient uses albuterol on a p.r.n. basis. 7. History of arteriosclerotic heart disease, status post percutaneous transluminal coronary angiopl asty stent, currently stable. No evidence of any ongoing coronary ischemia. 8. History of anemia. This is secondary to chronic kidney disease. The patient will receive Aranes p as per protocol. 9. History of secondary hyperparathyroidism. We will check a phosphorus level and start patient on binder therapy. The patient should continue a renal diet. 10. Hyperlipidemia. The patient will continue diet and statin therapy. PLAN: 1. From renal standpoint, patient appears to be stable. The patient can be continued to be monitore d in outpatient setting. She has been seen by cardiology and cleared. The patient has also been see n by neurology. The patient has been cleared. 2. Hemodialysis tomorrow. Again, can take place in the outpatient setting if patient is discharged. Otherwise, patient will receive it in the hospital. 3. Continue patient on all outpatient medications. 4. Continue to monitor patient on telemetry while an inpatient. Thank you for letting me partake and share in the care of our mutual patient. Nishant Mack MD cc: [phone] TT: 08/11/2016 15:45:54 Confirmation # [id number] Dictation # [id number]
--- NOTE | 2016-08-11 22:45 | PN ---
DATE: 08/11/2016 REASON FOR CONSULTATION AND FOLLOWUP: Cardiac evaluation, history of coronary artery disease, admitt ed with dizziness, neck pain and back pain. BRIEF CLINICAL HISTORY: A 71-year-old female with a past medical history significant for ID in Decem cy[place], being followed by ____ group. Denies any chest pain, shortness of breath, any palpitation. PHYSICAL EXAMINATION: VITAL SIGNS: Temperature afebrile, heart rate 90, blood pressure 137/62. HEENT: PERRLA. Extraocular muscles intact. NECK: Supple. No carotid bruits. No thyromegaly. CHEST: Clear to auscultation. HEART: S1, S2 regular. ABDOMEN: Soft. EXTREMITIES: Clubbing and cyanosis negative. LABORATORY DATA: Blood workup as follows: WBC 7, hemoglobin 10.8, hematocrit 34.5, platelet count 1 62. Chemistry shows sodium ____, potassium 5, chloride 100, carbon dioxide ____, anion gap of 17, BU N ____, creatinine 5.2. IMPRESSION AND PLAN: Acute kidney injury, worsening. No evidence of acute myocardial infarction. N o evidence of acute coronary syndrome. Troponin remains flat at 0.01 in the face of ____ kidney inju ry. Diabetes, hypertension, hyperlipidemia, history of coronary artery disease, history of percutane ous transluminal coronary angioplasty in January at [facility], being followed by Dr Calabrese ____ group, admitted with back pain and neck pain. So far, the troponin remains negative. No furth er cardiac workup is warranted, asymptomatic, being followed by ____ group. Upon discharge, jonathon ent will be followed there. In the interim, continue atorvastatin, continue aspirin, continue losart an, continue clopidogrel. We will discontinue enoxaparin because kidney function is getting worse. We will change to ____ subQ q. 24 hours. We will discontinue ____ q. 24 to ____ for deep venous thro mbosis prophylaxis. We will discontinue telemetry as well as cardiovascular system is stable. No fu rther cardiac workup is planned. We will resume aspirin and Plavix. Joss Bah MD cc: [id number] TT: 08/11/2016 13:11:49 Confirmation # [id number] Dictation # [id number] rn
[2016-08-12] MEDS ORDERED: Enoxaparin 30 mg Syringe SC SCH (10:00)
--- NOTE | 2016-08-12 11:18 | DS ---
DATE OF DISCHARGE SUMMARY: 08/11/2016 The patient was seen by cardiology, Dr. Bah and neurology, Dr. Dario Hensley, also seen by nephrolog ist, Dr. Mack. The patient does not need the dialysis at this time. She will get it in the [facility] next day. No new complaints. She is eating. She is happy. No new complaint. PHYSICAL EXAMINATION: VITAL SIGNS: Stable. On discharge date here, her vitals are as follows: Temperature 98.4, heart ra te 68. Blood pressure is 104/74, respirations 19. HEAD AND NECK: Normal. No JVD, no thyromegaly. CHEST: Clear, good air entry. CARDIAC: First and second sounds are normal. ABDOMEN: Soft, obese, nontender. EXTREMITIES: No edema. NEUROLOGIC: Normal. This patient is seen by cardiology and neurology, cleared for discharge. DISCHARGE DIAGNOSES: 1. Syncope, unclear etiology. She is stable. She has no new complaint. We will discharge the jonathon ent to be followed as outpatient. 2. Hypertension, diabetes, hypercholesterolemia, chronic renal failure. The patient should do hemod ialysis as outpatient. 3. Morbid obesity. May benefit from diet control and dietary medications including Victoza and such . CURRENT MEDICATION ON DISCHARGE: Cozaar 50 mg p.o. daily, Xalatan eyedrops, Humalog, and Lantus insu franklin 35 units at bedtime plus Humalog. The patient is also getting Nexium, Plavix 75 once a day, Core g 3.125 b.i.d. The patient is also taking clindamycin 300 t.i.d., advised to follow up with the doct or who gave it to her. PhosLo 667 t.i.d. The patient is not taking that anymore. So follow up with the wind turbine controls engineer. Continue Lipitor 20 mg p.o. daily, Ventolin inhalers, and Alphagan eyedrops for g laucoma. Discharge home. Huey Duncan MD cc: [phone] TT: 08/12/2016 11:17:32 matthew
--- NOTE | 2016-08-12 11:48 | HP ---
History and physical was done on 08/10/2016. The patient is a 71-year-old female, came in with possible syncope and she was admitted for evaluatio n by Emergency Room. HISTORY OF PRESENT ILLNESS: A 71-year-old female, history of diabetes, hypertension; chronic renal f ailure, on dialysis. The patient came in to the ER post syncope episode the day before coming and sh enrico was concerned about it. She has no chest pain. She did not lose her consciousness. The patient c urrently she is alert, awake, oriented. She denied any nausea, vomiting, fever or any chills, any ot her complaints. PAST MEDICAL HISTORY: As I mentioned, chronic renal failure, hypertension, diabetes, dialysis patien t, glaucoma and COPD. ALLERGIES: FISH, MORPHINE, OXYCODONE, PENICILLIN, STEROIDS. FAMILY HISTORY: Noncontributory. REVIEW OF SYSTEMS: As in the present illness. She feels fine except sometimes she feels tired and w eak. PHYSICAL EXAMINATION: VITAL SIGNS: Temperature 98.4, heart rate 79, blood pressure 118/69, respiration 18, saturation 98%. HEAD AND NECK: Normal. No JVD, no thyromegaly. CHEST: Clear, good air entry. CARDIAC: First sound, second sound normal. ABDOMEN: Soft, obese, nontender. EXTREMITIES: No edema. NEUROLOGIC: Normal. LABORATORY DATA: When she came in: White count 6.1, hemoglobin 10.1, hematocrit 12.7, platelets 154 . Chemistry: Sodium 139, potassium 4.5, chloride 99, bicarb 30, BUN 14, creatinine 3, blood sugar 2 94. Liver enzymes are normal except tereso phos 217. Troponin 0.01. Also, patient had, when she came in, she had a CT of the head that was negative, no bleed. Chest x-ray was reported no active lung d isease and no significant pleural effusion. The patient also had an EKG which shows normal sinus rhy thm, possible anterior infarction, age undetermined. IMPRESSION AND PLAN: 1. A 71-year-old female came in with syncope, who was admitted to telemetry. Will get a cardiology consult (Dr. Bah), neurology consult (Dr. Dario Hensley). Will monitor the patient on telemetry. C ardiac enzymes. Resume all her meds. 2. For diabetes, continue insulin and insulin coverage. 3. Chronic renal failure, on hemodialysis. Will get a nephrology consult on the case. PLAN: Continue current medications. Follow up clinically. Huey Duncan MD cc: [phone] TT: 08/12/2016 11:47:18 mn
== END 2016-08-11 14:05 | disposition home or self-care (01) ==
LOC: ED 21:57 → ERH 08-10 01:28 → 2RNO 08-10 03:27
PROVIDERS: ADMIT Internal Medicine; ATTEND Internal Medicine
DX: R55 Syncope and collapse (principal); E11.22 Type 2 diabetes mellitus with diabetic chronic kidney disease; N18.6 End stage renal disease; Z99.2 Dependence on renal dialysis; E11.21 Type 2 diabetes mellitus with diabetic nephropathy; I12.0 Hypertensive chronic kidney disease with stage 5 chronic kidney disease or end stage renal disease; I25.10 Atherosclerotic heart disease of native coronary artery without angina pectoris; N25.81 Secondary hyperparathyroidism of renal origin; D63.1 Anemia in chronic kidney disease; M54.9 Dorsalgia, unspecified; N17.9 Acute kidney failure, unspecified; E78.5 Hyperlipidemia, unspecified; K21.9 Gastro-esophageal reflux disease without esophagitis; J44.9 Chronic obstructive pulmonary disease, unspecified; R51 Headache; R42 Dizziness and giddiness; E78.00 Pure hypercholesterolemia, unspecified; I25.2 Old myocardial infarction; Z95.5 Presence of coronary angioplasty implant and graft; Z79.4 Long term (current) use of insulin; Z91.81 History of falling; Z79.02 Long term (current) use of antithrombotics/antiplatelets
CPT/HCPCS: 36415; 70450; 71010; 80048; 80053; 80061; 82550; 82948; 83036; 83615; 84443; 84484; 85025; 85610; 85730; 93005; 96374; 97116; 97162; 99285; C9113; G0378; G8978; G8979; J1650

== ENCOUNTER 2016-11-12 21:31 | Observation (INO) | payer OTHER ==
[2016-11-12 21:32] VITALS: BMI 34.3
--- NOTE | 2016-11-13 00:37 | ED PDOC ---
Arrival/HPI - General Chief Complaint: Trauma Time Seen by Provider: 11/12/16 21:42 Historian: Patient - History of Present Illness Narrative History of Present Illness (Text): 11/13/16 00:36 A 71 year old female presents to the emergency department complaining of bilateral knee pain, right rib pain and left wrist pain s/p fall. Patient reports she fell trying to use walker. Patient denies any headache, dizziness, vision changes, nausea, vomiting, back pain, neck pain or any other complaints at this time. Symptom Onset: Sudden Symptom Course: Unchanged Activities at Onset: Rest Context: Home Past Medical History - Provider Review Nursing Documentation Reviewed: Yes - Infectious Disease Hx of Infectious Diseases: None - Tetanus Immunization Tetanus Immunization: Unknown - Cardiac Hx Cardiac Disorders: Yes Hx IN: Yes Hx Hypertension: Yes - Pulmonary Hx Chronic Obstructive Pulmonary Disease (COPD): Yes - Neurological Hx Neurological Disorder: No HX Cerebrovascular Accident: Yes (Rt. sided) Hx Paralysis: No - HEENT Hx Cataracts: Yes Hx Glaucoma: Yes - Renal Date of Last Dialysis Treatment: 06/14/16 Hx Renal Failure: Yes (On dialysis) - Endocrine/Metabolic Hx Diabetes Mellitus Type 2: Yes - Hematological/Oncological Hx Blood Disorders: Yes Hx Blood Transfusions: Yes Hx Blood Transfusion Reaction: No - Integumentary Hx Dermatological Disorder: Yes Other/Comment: cellulitis, 4cm x 5cm cellulitis to upper back small dry wound in center surrounded by dark red skin, small 1cm round dry wound to left of wound - Musculoskeletal/Rheumatological Hx Arthritis: Yes - Gastrointestinal Hx Gastrointestinal Disorders: No - Genitourinary/Gynecological Hx Genitourinary Disorders: No - Psychiatric Hx Psychophysiologic Disorder: Yes Hx Depression: Yes Hx Emotional Abuse: No Hx Physical Abuse: No Hx Substance Use: No - Past Surgical History Past Surgical History: No Previous - Surgical History Hx Cholecystectomy: Yes Hx Hysterectomy: Yes Other/Comment: lav graft removal graft, wounde debbridement - Anesthesia Hx Anesthesia Reactions: No Hx Malignant Hyperthermia: No - Suicidal Assessment Feels Threatened In Home Enviroment: No Family/Social History - Physician Review Nursing Documentation Reviewed: Yes Family/Social History: No Known Family HX Smoking Status: Never Smoked Hx Alcohol Use: No Hx Substance Use: No Hx Substance Use Treatment: No Allergies/Home Meds Allergies/Adverse Reactions: Allergies FISH Allergy (Verified 06/15/16 14:56) RASH morphine Allergy (Verified 06/15/16 14:56) ANAPHYLAXIS oxycodone Allergy (Verified 06/15/16 14:56) ANAPHYLAXIS Penicillins Allergy (Verified 06/15/16 14:56) ANAPHYLAXIS steroids Allergy (Uncoded 03/19/16 23:17) ANAPHYLAXIS Home Medications: Home Meds Medication Instructions Recorded Confirmed Albuterol Sulfate [Proair Hfa] 0.09 mg IH Q6 05/30/12 11/12/16 Carvedilol [Coreg] 3.125 mg PO DAILY 05/30/12 11/12/16 Insulin Aspar/Insulin N 70/30 43 units SC PRN PRN 06/15/12 11/12/16 [Novolog Mix 70/30-U/ml 3Ml] Esomeprazole Magnesium [Nexium] 40 mg PO DAILY 10/26/13 11/12/16 Atorvastatin [Lipitor] 20 mg PO DAILY 09/16/15 11/12/16 Clopidogrel [Plavix] 75 mg PO DAILY 09/16/15 11/12/16 Insulin Glargine, Recombina 35 units SC HS 09/16/15 11/12/16 [Lantus] Insulin Lispro [Humalog] 1 units SC PRN PRN 09/16/15 11/12/16 Losartan [Cozaar] 50 mg PO DAILY 09/16/15 11/12/16 Calcium Acetate [Phoslo] 667 mg PO TID 11/18/15 11/12/16 Brimonidine 0.2% [Alphagan 0.2% 1 drop OD Q8 11/19/15 11/12/16 Opht] Latanoprost 0.005% Opht [Xalatan 1 drop OD HS 11/19/15 11/12/16 Opht] Review of Systems - Physician Review All systems were reviewed & negative as marked: Yes - Review of Systems Eyes: absent: Vision Changes Gastrointestinal: absent: Nausea, Vomiting Musculoskeletal: Other (bilateral knee pain, right rib pain, left wrist pain). absent: Back Pain, Neck Pain Neurological: absent: Headache, Dizziness Physical Exam Vital Signs Reviewed: Yes Vital Signs Temp Pulse Resp BP Pulse Ox 11/13/16 03:32 88 18 132/72 99 11/13/16 01:32 86 18 142/78 99 11/12/16 21:32 99.2 F 94 H 16 137/70 100 Temperature: Afebrile Blood Pressure: Normal Pulse: Regular Respiratory Rate: Normal Appearance: Positive for: Well-Appearing, Non-Toxic, Comfortable Pain Distress: None Mental Status: Positive for: Alert and Oriented X 3 - Systems Exam Head: Present: Atraumatic, Normocephalic Pupils: Present: PERRL Extroacular Muscles: Present: EOMI Conjunctiva: Present: Normal Mouth: Present: Moist Mucous Membranes Neck: Present: Normal Range of Motion Respiratory/Chest: Present: Clear to Auscultation, Good Air Exchange. No: Respiratory Distress, Accessory Muscle Use Cardiovascular: Present: Regular Rate and Rhythm, Normal S1, S2. No: Murmurs Abdomen: Present: Normal Bowel Sounds. No: Tenderness, Distention, Peritoneal Signs Back: Present: Normal Inspection Upper Extremity: Present: Normal Inspection. No: Cyanosis, Edema Lower Extremity: Present: Other (ecchymosis of left knee ). No: Edema Neurological: Present: GCS=15, CN II-XII Intact, Speech Normal Skin: Present: Warm, Dry, Normal Color. No: Rashes Psychiatric: Present: Alert, Oriented x 3, Normal Insight, Normal Concentration Medical Decision Making ED Course and Treatment: 11/13/16 00:34 Impression: A 71 year old female with bilateral knee pain, right rib pain and left wrist pain s/p fall. Differential Diagnosis included but are not limited to: bilateral knee pain, right rib pain and left wrist pain r/o fracture Plan: -- EKG -- labs -- CT head -- Radiology knees b/l -- Radiology right ribs and chest -- Radiology left wrist -- Reassess and disposition Prior Visits: Notes and results from previous visits were reviewed. Patient last reported to the emergency department on 08/09/16 for evaluation of dizziness s/p syncopal episode. Progress Notes: 11/13/16 00:44 EKG: Ordered, reviewed, and independently interpreted the EKG. Rate : 93 BPM Rhythm : NSR Interpretation : Nonspecific ST-segment changes, normal intervals. CT Head Without Intravenous Contrast FINDINGS: Brain: Mild atrophy. No intracranial hemorrhage. No mass. No edema. Ventricles: No hydrocephalus. Bones/joints: No acute fracture. Soft tissues: Unremarkable. Vasculature: Atherosclerotic disease of intracranial arteries. Sinuses: Moderate RIGHT maxillary retention cyst. Tiny RIGHT sphenoid retention cyst. Mastoid air cells: Opacification of mastoids, RIGHT greater than LEFT, grossly stable. Orbits: Unremarkable as visualized. IMPRESSION: 1. No intracranial hemorrhage. 2. Incidental/non-acute findings are described above. Dictated and Authenticated by: Tomer Tena MD 11/13/2016 1:31 AM Eastern Time ([place] & [place]) xr bilateral knees and wrsit and ribs neg fx case d/w dr azul accepts case 11/13/16 06:33 - Lab Interpretations Lab Results: 11/13/16 00:32 11/13/16 00:32 Lab Results 11/13/16 00:32: Sodium 144, Potassium 5.3 H, Chloride 104, Carbon Dioxide 26, Anion Gap 19, BUN 24 H, Creatinine 5.4 H, Est GFR ( Amer) 9, Est GFR (Non -Af Amer) 8, Random Glucose 181 H, Calcium 8.5, Total Bilirubin 0.6, AST 28, ALT 20, Alkaline Phosphatase 218 H, Total Protein 8.3, Albumin 4.0, Globulin 4.3 , Albumin/Globulin Ratio 0.9 L 11/13/16 00:32: WBC 7.4, RBC 3.01 L, Hgb 11.2 L, Hct 36.6, MCV 121.6 H, MCH 37.2 H, MCHC 30.6 L, RDW 13.5, Plt Count 139, MPV 10.8, Gran % 67.1, Lymph % ( Auto) 23.3, [place] % (Auto) 8.2 H, Eos % (Auto) 1.3 L, Baso % (Auto) 0.1, Gran # 4.99, Lymph # 1.7, [place] # 0.6, Eos # 0.1, Baso # 0.01 I have reviewed the lab results: Yes - RAD Interpretation Radiology Orders: 11/12/16 22:06 KNEES BILATERAL [RAD] Stat WRIST, LEFT 3 VIEWS [RAD] Stat 11/12/16 22:07 RIBS RIGHT & PA CHEST [RAD] Stat 11/13/16 00:45 HEAD W/O CONTRAST [CT] Stat - EKG Interpretation Interpreted by ED Physician: Yes Type: 12 lead EKG - Medication Orders Current Medication Orders: Acetaminophen (Tylenol 325mg Tab) 650 mg PO Q4H PRN PRN Reason: Pain, Mild (1-3) Last Admin: 11/13/16 05:25 Dose: 650 mg MAR Pain/Vitals Document 11/13/16 05:25 [facility] (Rec: 11/13/16 05:26 [facility]-[id number]) Pain Reassessment Is This A Pain ReAssessment? No Presence of Pain Presence of Pain Yes Pain Scale Used Pain Scale Used Numeric Location Left, Right or Bilateral Left Pain Location Body Site Knee Description Constant Intensity 8 Scale Used Numeric Pain Behavior Facial Grimacing Aggravating Factors Exercise/Activity Alleviating Factors Medication - Scribe Statement The provider has reviewed the documentation as recorded by the Scribe David Hernandez Provider Scribe Attestation: All medical record entries made by the Scribe were at my direction and personally dictated by me. I have reviewed the chart and agree that the record accurately reflects my personal performance of the history, physical exam, medical decision making, and the department course for this patient. I have also personally directed, reviewed, and agree with the discharge instructions and disposition. Disposition/Present on Arrival - Present on Arrival Any Indicators Present on Arrival: No History of DVT/PE: Yes History of Uncontrolled Diabetes: Yes Urinary Catheter: No History of Decub. Ulcer: No History Surgical Site Infection Following: None - Disposition Have Diagnosis and Disposition been Completed?: Yes Diagnosis: Contusion of left knee, Weakness Disposition: HOSPITALIZED Disposition Time: 02:30 Condition: GOOD
[2016-11-13 00:58] LABS: BASO # 0.01 K/mm3 (0.0-2.0); BASO % 0.1 % (0.0-3.0); EOS # 0.1 (0.0-0.7); EOS % 1.3 % (1.5-5.0); GRAN # 4.99 (1.4-6.5); GRAN % 67.1 % (50.0-68.0); HEMATOCRIT 36.6 % (36.0-48.0); LYMPH # 1.7 (1.2-3.4); LYMPH % 23.3 % (22.0-35.0); MEAN CELL VOLUME 121.6 fl (80.0-105.0); MEAN CORPUSCULAR HEMOGLOBIN 37.2 pg (25.0-35.0); MEAN CORPUSCULAR HGB CONC 30.6 g/dl (31.0-37.0); MEAN PLATELET VOLUME 10.8 fl (7.0-11.0); MONO # 0.6 (0.1-0.6); MONO % 8.2 % (1.0-6.0); RED CELL DISTRIBUTION WIDTH 13.5 % (11.5-14.5); WHITE BLOOD COUNT 7.4 10^3/ul (4.5-11.0)
[2016-11-13 01:23] LABS: ALB/GLOB RATIO 0.9 (1.1-1.8); BILIRUBIN,TOTAL 0.6 mg/dL (0.2-1.3); CALCIUM 8.5 mg/dL (8.4-10.5); TOTAL PROTEIN 8.3 g/dL (5.8-8.3)
[2016-11-13 01:35] LABS: POTASSIUM 5.3 mmol/L (3.6-5.0)
--- NOTE | 2016-11-13 02:26 | CT ---
EXAM: CT Head Without Intravenous Contrast CLINICAL HISTORY: 71 years old, female; Injury or trauma; Fall; Initial encounter; Concussion / head injury TECHNIQUE: Axial computed tomography images of the head/brain without intravenous contrast. All CT scans at this facility use one or more dose reduction techniques, viz.: automated exposure control; ma/kV adjustment per patient size (including targeted exams where dose is matched to indication; i.e. head); or iterative reconstruction technique. COMPARISON: CT - HEAD W/O CONTRAST 08/10/2016 12:00:00 AM FINDINGS: Brain: Mild atrophy. No intracranial hemorrhage. No mass. No edema. Ventricles: No hydrocephalus. Bones/joints: No acute fracture. Soft tissues: Unremarkable. Vasculature: Atherosclerotic disease of intracranial arteries. Sinuses: Moderate RIGHT maxillary retention cyst. Tiny RIGHT sphenoid retention cyst. Mastoid air cells: Opacification of mastoids, RIGHT greater than LEFT, grossly stable. Orbits: Unremarkable as visualized. IMPRESSION: 1. No intracranial hemorrhage. 2. Incidental/non-acute findings are described above.
--- NOTE | 2016-11-13 08:59 | RAD ---
PROCEDURE: Radiographs of the Chest and Right Ribs. HISTORY: fall COMPARISON: 08/09/2016 TECHNIQUE: Frontal radiograph of the chest and multiple oblique radiographs of the right ribs were obtained. FINDINGS: RIGHT RIBS: No fracture or focal lesion visualized. Osteopenia LUNGS: Left lateral mid lung zone discoid atelectasis and/or scarring,. There is also some nodular configuration to this bandlike horizontal opacity although not dissimilar to the most recent exam-not appreciated on a 01/04/2013 study. Nodular pleural thickening is 1 consideration. Not appreciated on a CT neck chest exam from 05/20/2014. The nodularity appears less conspicuous on the current study than the 08/09/2016. Its significance is indeterminate PLEURA: No pleural effusion. Left lateral pleural thickening probable some nodular character to the pleural thickening in the mid left lung zone is possible. Some trace focal fluid here is another consideration. No pneumothorax CARDIOVASCULAR: Cardiomegaly. Top-normal pulmonary vasculature Right dialysis catheter tip in superior vena cava - right atrial junction. OTHER FINDINGS: Left axillary stent for left axillary clip. Left upper quadrant have a splenic arterial calcification. Quadrant cholecystectomy clips osseous hypertrophic changes left and right acromioclavicular joint. IMPRESSION: Discoid atelectasis and/or scarring left lateral mid lung zone with bordering left pleural reaction. Although the nodular character to this horizontal opacity is smaller compared to the more recent exam-, its significance, if any is not clear. This is not apparent on much earlier exams. Consider elective noncontrast CT chest follow-up. No right rib fracture.
--- NOTE | 2016-11-13 09:54 | RAD ---
PROCEDURE: Bilateral Knee Radiographs. HISTORY: fall COMPARISON: None. FINDINGS: BONES: Diffuse osteopenia suggests osteoporosis. There is no displaced fracture or suspicious lytic or blastic change bilaterally. JOINTS: There is no subluxation or dislocation bilaterally. Tricompartmental osteoarthritis appreciated manifest by diffuse articular cortical sclerosis and joint space narrowing and limited osteophyte formation. Degenerative meniscal changes are appreciated at the medial and lateral femorotibial compartments bilaterally. SOFT TISSUES: Vascular calcifications are seen posteriorly bilaterally as well as likely phleboliths in the bilateral pretibial soft tissues. . JOINT EFFUSION: There is a bvva-sj-[id number] right suprapatellar bursa effusion, minimal at the left. OTHER FINDINGS: None. IMPRESSION: No acute displaced fracture is identified bilaterally. Diffuse osteopenia suggests osteoporosis or bilateral osteoarthritis is appreciated in all 3 joint compartments.
--- NOTE | 2016-11-13 09:57 | RAD ---
PROCEDURE: Left Wrist Radiographs. HISTORY: fall COMPARISON: None. FINDINGS: BONES: Diffuse osteopenia suggests osteoporosis. No suspicious lytic or blastic change identified. There is no displaced fracture identified at this time. The navicular bone appears intact grossly. Vascular calcifications are appreciated within the soft tissues of the wrist as well as incidentally at the visualized hand and distal forearm. JOINTS: Mild cortical sclerosis appreciate throughout the carpal carpal and carpometacarpal psoas radiocarpal joints. SOFT TISSUES: As above peer OTHER FINDINGS: None. IMPRESSION: Diffuse osteopenia suggests osteoporosis. No displaced fracture identified. No dislocation or subluxation. Degenerative joint changes are seen as discussed above.
[2016-11-13] MEDS ORDERED: [UNRECOGNIZED DRUG - OTHER] SC PRN (10:08)
[2016-11-13] MEDS ORDERED: INSULIN ASPART SC PRN (10:08)
[2016-11-13] MEDS ORDERED: Insulin Lispro (HUMAlog) HIGH Coverage SC PRN (10:08)
[2016-11-13] MEDS ORDERED: INSULIN ASPART PROTAMINE SC PRN (10:08)
[2016-11-13] MEDS ORDERED: Albuterol 0.083% Inhal Sol (2.5 mg/3 mL) UD IH PRN (10:41)
[2016-11-13] MEDS ORDERED: Home Med 1 UNIT OD SCH (10:45)
--- NOTE | 2016-11-13 11:06 | CARD ---
APPROVED REPORT EKG Measurement Heart [id number] <Conclusion> Normal sinus rhythm Possible Anterior infarct, age undetermined Abnormal ECG
[2016-11-13] MEDS: Pantoprazole 40 mg EC Tab PO SCH (11:25)
[2016-11-13] MEDS ORDERED: Albuterol HFA 90 mcg/actuation (8 g) IH SCH (12:00)
[2016-11-13] MEDS: Albuterol 0.083% Inhal Sol (2.5 mg/3 mL) UD IH SCH ×2 (13:07→21:36)
[2016-11-13] MEDS ORDERED: Non Formulary Medication (Brimonidine 0.2% [Alphagan 0.2% Opht] 1 DROP) OD SCH (14:00)
[2016-11-13] MEDS ORDERED: INSULIN GLARGINE SC SCH (22:00)
[2016-11-13] MEDS ORDERED: Latanoprost 2.5 ml Opht Soln OD SCH (22:00)
[2016-11-13] MEDS: Insulin Detemir 100 units/ml Vial (Levemir) SC SCH (22:40)
[2016-11-13] MEDS: Insulin Reg-LOW-Coverage SC SCH (22:59)
[2016-11-14] MEDS: Latanoprost 2.5 ml Opht Soln OD SCH ×2 (00:54→22:32)
--- NOTE | 2016-11-14 03:29 | CON ---
DATE: 11/13/2016 REASON FOR CONSULTATION: End-stage renal disease, hyperkalemia, and need for dialysis. HISTORY OF PRESENTING ILLNESS: A 71-year-old lady, known to me from outpatient follow up, was brought to the emergency room yesterday because of fall at home. The patient reports that she was trying to get to her walker and she fell and complaining of severe pain in her knees, left greater than right. She denies any chest pain. She denies any palpitation. She denies any fevers, chills. In the emergency room, she was found to have [id number] right suprapatellar effusion, minimal effusion on the left, diffuse osteopenia and bilateral osteoarthritis of her knees. She was also found to have potassium of 5.4. Consultation was requested for need for dialysis. PAST MEDICAL AND SURGICAL HISTORY: NIDDM, hypertension, CAD, PTCA stent, ESRD, diabetic retinopathy, anemia of chronic kidney disease, secondary hyperparathyroidism, and severe osteoarthritis. FAMILY HISTORY: Noncontributory. SOCIAL HISTORY: No smoking, no alcohol use, no IV drug abuse. ALLERGIES: MORPHINE, OXYCODONE, PENICILLIN AND STEROIDS. CURRENT MEDICATIONS: DuoNeb, Coreg 3.125 b.i.d., losartan 50, heparin, insulin, Lipitor 20, PhosLo, Plavix, Protonix, and Tylenol. REVIEW OF SYSTEMS: All systems are reviewed, pertinent positives as mentioned in the history of presenting illness, rest unremarkable. PHYSICAL EXAMINATION: GENERAL EXAMINATION: Obese elderly lady lying in bed. VITAL SIGNS: Blood pressure 180/77, heart rate 89, respiratory rate 20 and temperature 98.2. HEENT: Normocephalic, atraumatic, positive pallor. NECK: Supple, no JVD. LUNGS: Bilateral equal air entry, no rales. CARDIAC: S1 and S2, regular rate rhythm, no murmur, no rub. ABDOMEN: Obese, distended, soft, nontender, bowel sounds present. EXTREMITIES: Tenderness of the left suprapatellar region. LABORATORY DATA: WBC 7.4, hemoglobin 11, hematocrit 36.6 and platelets 139. Sodium 144, potassium 5.3, chloride 104, CO2 of 26, BUN 24, creatinine 5.4, glucose 211, calcium 8.5, AST 28, ALT 20 and albumin 4.0. ASSESSMENT: 1. Status post fall, rule out syncope. 2. Non-insulin dependent diabetes mellitus. 3. Hypertension. 4. End-stage renal disease. 5. Hyperkalemia. 6. Anemia. PLAN: 1. Urgent dialysis, use potassium . 2. Pain management. 3. Monitor fingerstick's and continue insulin coverage. 4. Physical therapy. Marlyn Snow MD
[2016-11-14] MEDS: Albuterol 0.083% Inhal Sol (2.5 mg/3 mL) UD IH SCH ×4 (03:30→20:41)
[2016-11-14] MEDS: Insulin Reg-LOW-Coverage SC SCH ×4 (08:34→22:19)
[2016-11-14] MEDS: Pantoprazole 40 mg EC Tab PO SCH (10:13)
[2016-11-14] MEDS: Insulin Detemir 100 units/ml Vial (Levemir) SC SCH ×2 (10:17→22:19)
[2016-11-14 11:33] LABS: TROPONIN I 0.04 ng/mL
--- NOTE | 2016-11-14 14:15 | HP ---
DATE: 11/13/2016 A 71-year-old with history of chronic renal failure, came into the hospital with complaint of generalized weakness; also, she fell with left knee injury. The patient denied any dizziness; denied any chest pain, any nausea or vomiting. HISTORY OF PRESENT ILLNESS: This is 71-year-old female with history of coronary artery disease, chronic renal failure, hypertension, diabetes, came into the hospital with bilateral knee pain, right rib pain, left wrist pain. She fell, she tried to use a walker, but she tripped over and fell. There is no chest pain; no dizziness; no syncope; no headaches; no nausea, vomiting, sweating or any chest pain. PAST MEDICAL HISTORY: As I mentioned, chronic renal failure, on dialysis; hypertension; hypercholesteremia; insulin dependent diabetes; COPD; morbid obesity. ALLERGIES: ALLERGIC MORPHINE, OXYCODONE, PENICILLIN AND STEROIDS; ALL OF THEM GIVE HER ANAPHYLAXIS. FAMILY HISTORY: Noncontributory. REVIEW OF SYSTEMS: She was feeling weak, tired. She has chronic arthritis pain. Denied any chest pain. Denied any dyspnea on exertion. PHYSICAL EXAMINATION: VITAL SIGNS: Temperature 98.5, heart rate 85, blood pressure 159/75, respiratory rate 20 and saturation 94% on room air. HEAD AND NECK: Normal. No JVD. No thyromegaly. CHEST: Clear. No wheeze. CARDIAC: First sound and second sound normal. ABDOMEN: Obese. EXTREMITIES: No edema. NEUROLOGIC: The patient moves all extremities. She is alert, awake and oriented x3. LABORATORY DATA: White count 7.4, hemoglobin 11.2, hematocrit 36.6 and platelets are 139. Her chemistry shows sodium 144, potassium 5.3, chloride 104, bicarb 26, BUN 24, creatinine 5.4, blood sugar 181. Liver function test is normal except increase in alkaline phosphatase 218. The patient also had some x-rays, there were no fractures and she had head CT, there was no bleed and she had electrocardiogram which was normal sinus rhythm, possible anterior infarction, age undetermined, abnormal EKG. No comparison of the old EKG was done. The patient also had some x-rays which showed no right rib fractures and there was some scar in left lateral lung, there was nodular opacity. Also, the patient had knee x-ray, especially left knee, which showed no acute displaced fractures, diffuse osteopenia, osteoporosis, bilateral osteoarthritis in the C compartment. No chest x-ray was reported. IMPRESSION AND PLAN: This is a 71-year-old female with a history of diabetes, hypertension, chronic renal failure, coronary artery disease. We will admit the patient to the medical floor with generalized weakness, get her blood cultures. We will monitor cardiac status, renal consultations and we will follow up clinically or she will get consult with Dr. Issa, x-ray, we will repeat x-ray of the lung and we will follow up clinically, resume all her meds and continue current management. The patient will get also hemodialysis. Huey Duncan MD
[2016-11-14] MEDS: BRIMONIDINE 0.2% OD SCH (22:19)
--- NOTE | 2016-11-15 00:08 | PN ---
DATE: 11/14/2016 SUBJECTIVE: The patient is seen lying in bed. She is arousable. She complains of severe pain in her left knee greater than right. She denies any chest pain. She denies any palpitations. PHYSICAL EXAMINATION: GENERAL: Obese elderly male, lying in bed. VITAL SIGNS: Blood pressure 184/88, heart rate 87, respiratory rate 18, and temperature 98. HEENT: Normocephalic, atraumatic. NECK: Supple. LUNGS: Bilateral equal air entry, bilateral rhonchi, no rhonchi heard. CARDIAC: S1 and S2, regular rate and rhythm. No murmur. No rub. ABDOMEN: Obese, distended, soft, nontender, bowel sounds present. LABORATORY DATA: No new labs available. ASSESSMENT: 1. Status post fall. 2. ? Syncope. 3. Left knee contusion. 4. Ewk-jjcbvgy-habrhhglz diabetes mellitus. 5. Hypertension. 6. End-stage renal disease. 7. Anemia. 8. Chronic kidney disease. 9. Congestive heart failure. PLAN: 1. Dry filtration today, we will try to remove 2.5 to 3 kilograms. 2. Pain management. 3. Monitor fingerstick and continue insulin coverage. 4. Physical therapy. Marlyn Snow MD
[2016-11-15] MEDS: Albuterol 0.083% Inhal Sol (2.5 mg/3 mL) UD IH SCH ×4 (02:52→20:55)
[2016-11-15] MEDS ORDERED: Bupivacaine 0.5% Inj(30mL) IJ ONE (07:09)
[2016-11-15] MEDS ORDERED: MethylPREDNISolone Depo 40 mg/ml Inj IM ONE (07:09)
[2016-11-15] MEDS: BRIMONIDINE 0.2% OD SCH ×3 (07:49→23:07)
[2016-11-15] MEDS: Insulin Reg-LOW-Coverage SC SCH (08:25)
--- NOTE | 2016-11-15 10:15 | CT ---
PROCEDURE: CT of the left knee without contrast HISTORY: lt knee hemarthrosis fell at home COMPARISON: Comparison is made to the previous x-ray of the knees dated 11/12/2016 TECHNIQUE: Axial and reformatted coronal and sagittal CT images of the left knee were obtained without IV contrast administration. Total exam DLP: 136.96 FINDINGS: There is acute nondisplaced fracture at the lateral aspect of the patella. There is a small to moderate amount of left knee joint effusion. There are foci of very low attenuation seen at the upper portion of the suprapatellar joint space and in the anterior aspect of the lower portion of the thigh. Findings may represent foci of air or fat in the joint effusion. There are moderate osteoarthritic changes at the left knee. There are soft tissue calcification including left knee cartilage calcification noted. There is popliteal/Medrano's cyst measures 3 x 1.6 centimeter. Diffuse vascular calcifications seen. IMPRESSION: Acute nondisplaced fracture at the lateral aspect of the left patella. Small to moderate amount of left knee joint effusion. Droplet of low-attenuation air or less likely fat seen in the suprapatellar joint space. Moderate osteoarthritic changes. 3 centimeter medrano cyst. Diffuse soft tissue edema around the left knee suggestive of recent contusion.
[2016-11-15 10:35] LABS: HEMATOCRIT 36.6 % (36.0-48.0); MEAN CELL VOLUME 117.3 fl (80.0-105.0); MEAN CORPUSCULAR HEMOGLOBIN 37.8 pg (25.0-35.0); MEAN CORPUSCULAR HGB CONC 32.2 g/dl (31.0-37.0); MEAN PLATELET VOLUME 10.8 fl (7.0-11.0); RED CELL DISTRIBUTION WIDTH 13.1 % (11.5-14.5); WHITE BLOOD COUNT 6.9 10^3/ul (4.5-11.0)
--- NOTE | 2016-11-15 10:38 | CON ---
DATE: 11/15/2016 HISTORY OF PRESENT ILLNESS: The patient had come into the hospital on 11/13/2016, I made an attempt to see her yesterday, but she was at dialysis and I am back here today, to see her for reported left knee pain. X-ray showed osteoarthritis, mild of her both knees with signs of pyrophosphate, she has calcified meniscus in both knees and today, she has a fusion of her left knee and very little on the right knee and she had a knee immobilizer prior to the emergency room for an injury when she fell at home when trying to move with a walker. She is 71 years old, on dialysis. She has weak muscle tone as it is, so we took out 30 mL of non-clotted blood. No evidence of bone marrow particles, so after the aspiration of the blood, we gave her Depo-Medrol, Marcaine for pain relief and going to sent her for CAT scan to look for a nondisplaced fracture of the osteopenic bones of her left knee, so I will report back when I get the CAT scan of her left knee. In the meantime, she is stable enough to be up out of bed and I will follow her after the CAT scan is done. If it is not fracture, I will get her ambulating and moving about and if it is fracture, we will have to go the next step. I do not think she will need surgery. FINAL DIAGNOSIS: Traumatic hemarthrosis of left knee, to evaluate for a left knee fracture. Domingo Issa DO [facility]PITALDamien
[2016-11-15 11:12] LABS: ALB/GLOB RATIO 0.9 (1.1-1.8); BILIRUBIN,TOTAL 0.7 mg/dL (0.2-1.3); CALCIUM 8.4 mg/dL (8.4-10.5); PHOSPHOROUS 5.5 mg/dL (2.5-4.5); POTASSIUM 5.5 mmol/L (3.6-5.0); TOTAL PROTEIN 7.7 g/dL (5.8-8.3)
[2016-11-15] MEDS: Insulin Lispro (humaLOG) LOW Coverage SC SCH ×3 (12:25→23:08)
[2016-11-15] MEDS: Pantoprazole 40 mg EC Tab PO SCH (16:51)
--- NOTE | 2016-11-15 21:18 | CON ---
DATE: 11/15/2016 LOCATION: The patient is in room 577, bed 2. REASON FOR CONSULTATION: Coronary artery disease, history of fall, contusion of the knee. HISTORY OF PRESENT ILLNESS: A 71-year-old female who only speaks Indonesian through diplomatic interpreter/translator. The patient states that she was using the walker and she tripped. Denies any syncope, denies any chest pain, shortness of breath, palpitations. Associated with fall, the patient is complaining of pain in the left knee and swelling. PAST MEDICAL HISTORY: Significant for end-stage renal failure, the patient has been on regular dialysis 3 times a week, diabetes, hypertension, coronary artery disease status post stent insertion in 12/2015 at [facility]. The patient follows Dr. Sussy De La O, expander machine operator in [facility]. PERSONAL HISTORY: Denies smoking, denies drinking. HOME MEDICATIONS: Included insulin, Cozaar 50 mg daily, Plavix 75 mg daily, Nexium 40 mg daily, Coreg 3.125 p.o. daily, Lipitor 20 daily, albuterol sulfate and nebulizer therapy. REVIEW OF SYSTEMS: All the systems are reviewed. The patient's only complain is also fall while walking with walker and nausea and syncope, complaining pain and swelling on the left knee. Other systems are negative and other systems mentioned as history. ALLERGIES: THE PATIENT STATES THAT SHE IS ALLERGIC TO FISH, MORPHINE, OXYCODONE, PENICILLIN, STEROIDS. PHYSICAL EXAMINATION: VITAL SIGNS: Yesterday blood pressure evaluated 184/88, today is 136/73, respiratory rate 20, pulse 60, and temperature is 98.9. HEENT: Head is normocephalic. Eyes: Pupils are normal. Conjunctivae slightly pale. NECK: JVP low. Carotids are equal. The patient has dialysis catheter right upper chest. LUNGS: Clear. CARDIOVASCULAR: S1 and S2. No rub, no gallop. No click. ABDOMEN: Soft and nontender. No organomegaly. EXTREMITIES: There is no edema, no clubbing or cyanosis. The patient has a swelling of the left knee and marked tenderness on the left knee. LABORATORY DATA: EKG showed normal sinus rhythm. Possible anterior infarct, age undetermined. X-ray of the knee suggestive of nondisplaced fracture ____ of the left patella, small to moderate amount of left knee joint effusion. Osteoarthritis changes, [address] scan of the head, no intracranial hemorrhage, mild atrophy present. Atherosclerotic disease of intracranial arteries. Moderate right maxillary retention cyst. Tiny right sphenoidal retention cyst, opacification of the mastoid right greater than left. DIAGNOSES: Status post fall, left knee injury, hypertension, diabetes, history of coronary artery disease, history of stent insertion involving acute myocardial infarction at [facility] in 12/2015, history of asthma, end-stage renal failure on dialysis 3 times a week, anemia. PLAN: The patient is on Coreg 3.125 p.o. daily, albuterol and nebulizer therapy, Cozaar 50 mg daily, heparin 5000 units subcu q. 12 hours, insulin, Lipitor 20 mg daily, ____ 5 mg daily, Plavix 75 mg daily. We will continue present therapy when the patient go home. She will follow back with Dr. Ssusy De La O, her expander machine operator and she states that they follow her cardiac testing and cardiac workup and cardiac medications. Right now, the patient's cardiac status is stable. Continue present therapy. We will follow. Joss Millan MD
[2016-11-15] MEDS: Latanoprost 2.5 ml Opht Soln OD SCH (23:06)
[2016-11-15] MEDS: Insulin Detemir 100 units/ml Vial (Levemir) SC SCH (23:08)
[2016-11-16] MEDS: Albuterol 0.083% Inhal Sol (2.5 mg/3 mL) UD IH SCH ×4 (01:52→23:05)
[2016-11-16] MEDS: BRIMONIDINE 0.2% OD SCH ×2 (05:27→16:42)
[2016-11-16] MEDS: Insulin Lispro (humaLOG) LOW Coverage SC SCH ×4 (09:13→23:07)
[2016-11-16] MEDS: Pantoprazole 40 mg EC Tab PO SCH (10:42)
--- NOTE | 2016-11-16 17:28 | PN ---
DATE: 11/16/2016 SUBJECTIVE: The patient is seen lying in bed. She is resting comfortably. She does not appear to be in any kind of distress. OBJECTIVE: VITAL SIGNS: Blood pressure 152/61, heart rate 80, respiratory rate 18, temperature 97.9. HEENT: Normocephalic, atraumatic. NECK: Supple, no JVD. LUNGS: Bilateral equal entry, rales. CARDIAC: S1 and S2, regular rate and rhythm, no murmur, no rub. ABDOMEN: Obese, distended, soft, nontender, bowel sounds present. EXTREMITIES: Swelling of the left knee. LABORATORY DATA: No new labs available. MEDICATIONS: Coreg 3.125 b.i.d., Cozaar 50, Flagyl 500 q. 8, heparin, Humalog, loperamide, insulin, Lipitor, amlodipine 5, PhosLo, Plavix, Protonix. ASSESSMENT: 1. Status post fall. 2. Severe profuse diarrhea as per nursing staff. 3. End-stage renal disease. 4. Non-insulin dependent diabetes mellitus. 5. Hypertension. 6. Coronary artery disease. PLAN 1. Check stool for C. Difficile. 2. Agree with empiric Flagyl. 3. Pain management. 4. Monitor fingerstick and continue insulin coverage. 4. Check uric acid levels. Marlyn Snow MD
--- NOTE | 2016-11-16 17:41 | PN ---
DATE: 11/15/2016 SUBJECTIVE: The patient is seen in the dialysis unit. She is awake. She is alert. She is comfortable. She reports feeling better. She denies any pain. She complains of pain in her left knee. She reports that there was fluid aspirated from her left knee. PHYSICAL EXAMINATION: GENERAL: Obese, elderly lady lying in bed in the dialysis unit. VITAL SIGNS: Blood pressure 148/78, heart rate 74, respiratory rate 20, temperature 98.2. HEENT: Normocephalic, atraumatic. NECK: Supple, no JVD. LUNGS: Bilateral equal entry, bilateral equal expansion. CARDIAC: S1 and S2. Regular rate and rhythm. No murmur, no rub. ABDOMEN: Obese, distended, soft, nontender, bowel sounds present. EXTREMITIES: Swelling of the left knee. LABORATORY DATA: WBC 6.9, hemoglobin 11.8, hematocrit 36.6, platelets 143. Sodium 135, potassium 5.5, chloride 97, CO2 of 25, BUN 40, creatinine 5.2, glucose 211, calcium 8.4, phosphorus 5.5, magnesium 2.0. MEDICATIONS: Albuterol, Coreg, Cozaar 50 mg daily, heparin, insulin, Lipitor, amlodipine 5, PhosLo 667 t.i.d., Plavix, Protonix, Tylenol. ASSESSMENT: 1. Status post fall. 2. Left knee effusion/contusion. 3. Yti-xhiwbpz-crtuxggfx diabetes mellitus. 4. Hypertension. 5. Coronary artery disease. 6. End-stage renal disease. PLAN: 1. Stable dialysis. 2. Pain management. 3. Check joint fluid studies. 4. Check uric acid level. 5. Continue pain management. 6. Physical therapy. Marlyn Snow MD
[2016-11-16] MEDS: Latanoprost 2.5 ml Opht Soln OD SCH (22:00)
[2016-11-16] MEDS: Insulin Detemir 100 units/ml Vial (Levemir) SC SCH (23:09)
[2016-11-17] MEDS: BRIMONIDINE 0.2% OD SCH ×4 (00:02→21:31)
[2016-11-17] MEDS: Albuterol 0.083% Inhal Sol (2.5 mg/3 mL) UD IH SCH ×4 (03:24→21:25)
[2016-11-17 07:36] LABS: CALCIUM 8.8 mg/dL (8.4-10.5); URIC ACID 6.8 mg/dL (2.5-6.2)
[2016-11-17 08:36] LABS: POTASSIUM 6.1 mmol/L (3.6-5.0)
[2016-11-17] MEDS: Insulin Lispro (humaLOG) LOW Coverage SC SCH ×4 (08:45→23:17)
[2016-11-17] MEDS ORDERED: Sod Polystyrene Sulf 15 gm/60 ml Oral Susp PO ONE (10:08)
[2016-11-17] MEDS: Pantoprazole 40 mg EC Tab PO SCH (10:50)
[2016-11-17] MEDS ORDERED: Mometasone 0.1% Cream(15 gm) TOP PRN (13:03)
[2016-11-17] MEDS: Mometasone 0.1% Cream(15 gm) TOP PRN ×2 (13:54→21:20)
[2016-11-17] MEDS: Vancomycin 25 MG/ML PO SCH ×2 (14:55→21:37)
[2016-11-17] MEDS: Latanoprost 2.5 ml Opht Soln OD SCH (21:26)
--- NOTE | 2016-11-17 23:21 | PN ---
DATE: 11/14/2016 SUBJECTIVE: The patient is stable. She complains of problem getting her eye drops and today's date she had an extra hemodialysis because of extra fluid. She denied any chest pain. No nausea. No vomiting or any abdominal pain. The patient is legally blind and she uses Xalatan and Alphagan drops, which discussed with the son and the prescription was given to the patient. PHYSICAL EXAMINATION: On 11/14/2016 is as follows: VITAL SIGNS: Temperature is 98, heart rate 92, blood pressure is 180/84, respiration 18 and saturation 96. HEENT AND NECK: Normal. No JVD. No thyromegaly. CHEST: Clear. Good air entry. CARDIAC: First sound and second sound normal. ABDOMEN: Soft, obese and nontender. EXTREMITIES: No edema. NEUROLOGIC: Normal. Left knee has a knee brace and the patient also had seen by Dr. Issa for her left knee trauma. IMPRESSION: 1. Status post fall, the patient tripped over on her walker because of legal blindness and fell with left knee trauma and swelling. Orthopedic consult done by Dr. Issa. 2. Chronic renal failure. We will continue hemodialysis. Dr. Mack, renal consult and Dr. Snow seeing the patient. 3. Legally blind. The patient has glaucoma. Continue Xalatan and Alphagan as directed. 4. Diabetes. We will increase her insulin, continue insulin coverage. 5. Hypertension seems uncontrolled. We will add Norvasc 5 mg extra dose. PLAN: Continue current therapy. Continue hemodialysis. Monitor blood pressure. We will repeat labs, and we will follow up clinically. Huey Duncan MD
[2016-11-17] MEDS: Insulin Detemir 100 units/ml Vial (Levemir) SC SCH (23:23)
--- NOTE | 2016-11-18 03:00 | PN ---
DATE: 11/16/2016 SUBJECTIVE: The patient complained of diarrhea 4 to 5 times today,watery diarrhea. No nausea. The patient is otherwise stable. PHYSICAL EXAMINATION VITAL SIGNS: Temperature 97.9, heart rate 77, blood pressure 125/79, respiration 20, and saturation 97% on room air. HEAD AND NECK: Normal. No JVD. No thyromegaly. CHEST: Clear. Good air entry. CARDIAC: First and second sounds normal. ABDOMEN: Obese, soft and nontender. EXTREMITIES: No edema. NEUROLOGICALLY: Nonfocal, but legally blind. LABORATORY STUDIES: Shows blood sugar in the 150 and hematology is not done. IMPRESSION AND PLAN: 1. Acute diarrhea, etiology rule out infectious. We will get Clostridium diff. We will put the patient on Flagyl and we will follow up clinically. 2. Left knee fracture, status post fall due to trip over a walker, noncardiac. We will continue to monitor. The case was discussed with Dr. Issa. 3. Insulin-dependent diabetes, blood sugar running less than 200. At this time, we will continue current therapy. The patient was advised and encouraged to be eating. She is legally blind, and we will add Nepro can to increase her intake, especially in the hospital to avoid hypoglycemia due to not eating. 4. Chronic renal failure, hyperkalemia, monitor labs. We will order labs in the morning. Continue current therapy. Continue hemodialysis. 5. Hypertension, continue Norvasc and Cozaar. We may consider discontinuing Cozaar, if hyperkalemia continues to be a problem. PLAN: Continue current therapy. Consider rehabilitation after discussing with Dr. Issa. Stool C. diff was sent and follow up clinically. Huey Duncan MD
[2016-11-18] MEDS: Albuterol 0.083% Inhal Sol (2.5 mg/3 mL) UD IH SCH ×4 (03:20→20:05)
--- NOTE | 2016-11-18 03:28 | PN ---
DATE: 11/15/2016 SUBJECTIVE: The patient seems to be having pain over the left knee with movement, but otherwise no nausea, no vomiting. Blood sugar seems stable. No hypoglycemia. The patient otherwise is stable. PHYSICAL EXAMINATION: VITAL SIGNS: Temperature is 98.1, heart rate 86, blood pressure 152/67, and oxygen sat 96% on 2 L. HEAD AND NECK: Normal. No JVD. No thyromegaly. CHEST: Clear. Good air entry. CARDIAC: First sound and second sound normal. ABDOMEN: Obese and nontender. EXTREMITIES: No edema. NEUROLOGIC: Nonfocal. The patient is legally blind. LABORATORY DATA: White count 6.9, hemoglobin 11.8, hematocrit 36.6, and platelets 143. Chemistry shows the following; sodium 135, potassium 5.5, chloride 97, bicarbonate 25, BUN 40, creatinine 5.2, blood sugar 211 and phosphorus 5.5, alkaline phosphatase 181. IMPRESSION AND PLAN: 1. Chronic renal failure, continue hemodialysis. Nephrology consult on the case, Dr. Snow. 2. Hypertension, stable. Continue Norvasc plus Cozaar. 3. Glaucoma, currently on Alphagan and Xalatan, stable. No new complaints. 4. Anemia. The patient's chronic renal failure could be multifactorial. She will benefit from gastroenterology evaluation including colonoscopy. 5. Diabetes, insulin dependent. Continue insulin coverage regimen as it is, and we will follow up clinically. 6. Left knee, CT positive for fractures. We will discuss whether needs surgery or rehabilitation. The patient lives by herself, cannot walk, and we will discuss further treatment based on whether the patient needs surgery or sent for rehab. Continue current therapy. Huey Duncan MD
--- NOTE | 2016-11-18 04:39 | PN ---
DATE: 11/17/2016 SUBJECTIVE: The patient is seen lying in bed. She is comfortable. She does not appear to be in any kind of distress. PHYSICAL EXAMINATION GENERAL: Elderly lady lying in bed. VITAL SIGNS: Blood pressure 152/79, heart rate 78, respiratory rate 20, and temperature 98. HEENT: Normocephalic and atraumatic. Positive pallor.. NECK: Supple, no JVD. LUNGS: Bilateral equal air entry, bilateral rhonchi, no rales. CARDIAC: S1 and S2, regular rate and rhythm, no murmur, no rub. ABDOMEN: Obese, distended, soft and nontender. Bowel sounds present. EXTREMITIES: Swelling of the left knee, tenderness of the left knee. LABORATORY DATA: WBC 6.9, hemoglobin 11.8, hematocrit 36.6 and platelets 143. Sodium 135, potassium 6.1, chloride 97, CO2 of 22, BUN 85, creatinine 8.5, glucose 227 and calcium 8.8. Uric acid 6.8. Cultures negative. CURRENT MEDICATIONS: Albuterol, Coreg, mometasone, heparin, insulin, loperamide, rosuvastatin, amlodipine, PhosLo, Plavix, pantoprazole, Tylenol and vancomycin 250 q.i.d. ASSESSMENT: 1. Hypokalemia 2. Diarrhea. 3. Status post fall. 4. Left knee contusion. 5. Obesity. 6. Non-insulin dependent diabetes mellitus. 7. Hypertension. 8. End stage renal disease. PLAN: 1. Kayexalate 30 gram . 2. Pain management for left knee contusion. 3. Fingerstick monitoring and insulin coverage. 4. Dialysis tomorrow on the morning shift. Marlyn Snow MD
[2016-11-18] MEDS: BRIMONIDINE 0.2% OD SCH (06:22)
[2016-11-18] MEDS: Insulin Lispro (humaLOG) LOW Coverage SC SCH ×4 (08:48→21:51)
[2016-11-18] MEDS: Vancomycin 25 MG/ML PO SCH ×4 (09:47→21:29)
--- NOTE | 2016-11-18 10:15 | PN ---
DATE: 11/16/2016 SUBJECTIVE: We aspirated fluid from her left knee filled with blood and followup CAT scan done to rule out occult fractures, did show a fracture of the lateral process of the patella in the sagittal plane, she is completely stable, we are not going to restrict her ability to ambulate or get up out of bed. She does not even need a brace for this kind of fracture, it will always going to take 6 weeks to heal but every week it will feel much better and with her restrictions anyway with her being on dialysis and in renal failure, she will adapt to this minor disability well, so we will get her up out of bed, ambulate with a walker and out of brace, and follow her closely. She does feel bad just by taking her fluid out of her knee and giving her a Depo-Medrol for the osteoarthritis of her left knee and the fractures will heal just fine as long as she does not fall again. FINAL DIAGNOSIS: Stable left patella fracture, lateral facet. PROGNOSIS: For full recovery of that left knee and fracture will heal uneventfully. Domingo Issa DO
[2016-11-18] MEDS ORDERED: DiphenhydrAMINE 50 mg/ml Inj IVP ONE (12:00)
[2016-11-18 12:04] LABS: BASO # 0.02 K/mm3 (0.0-2.0); BASO % 0.3 % (0.0-3.0); EOS # 0.1 (0.0-0.7); EOS % 0.9 % (1.5-5.0); GRAN # 4.97 (1.4-6.5); GRAN % 75.1 % (50.0-68.0); HEMATOCRIT 33.3 % (36.0-48.0); LYMPH # 0.8 (1.2-3.4); LYMPH % 12.4 % (22.0-35.0); MEAN CELL VOLUME 113.7 fl (80.0-105.0); MEAN CORPUSCULAR HEMOGLOBIN 38.2 pg (25.0-35.0); MEAN CORPUSCULAR HGB CONC 33.6 g/dl (31.0-37.0); MEAN PLATELET VOLUME 10.3 fl (7.0-11.0); MONO # 0.8 (0.1-0.6); MONO % 11.3 % (1.0-6.0); WHITE BLOOD COUNT 6.6 10^3/ul (4.5-11.0)
[2016-11-18 12:11] LABS: BILIRUBIN,TOTAL 0.5 mg/dL (0.2-1.3); CALCIUM 8.7 mg/dL (8.4-10.5); MAGNESIUM 2.1 mg/dL (1.7-2.2); PHOSPHOROUS 6.9 mg/dL (2.5-4.5); POTASSIUM 4.9 mmol/L (3.6-5.0); TOTAL PROTEIN 8.1 g/dL (5.8-8.3)
--- NOTE | 2016-11-18 14:57 | PN ---
DATE: 11/18/2016 REASON FOR CONSULTATION AND FOLLOWUP: Coronary artery disease, history of fall, and contusion of the left knee. SUBJECTIVE: The patient is lying flat in bed without chest pain, shortness of breath, palpitation, and she said pain in the left knee is also less. PHYSICAL EXAMINATION VITAL SIGNS: Blood pressure 177/77, yesterday blood pressure was 150/65 and 141/94, on 11/16/2016 blood pressure was 137/71, respirations 20, pulse 82, and temperature is 98.3. HEENT: Head is normocephalic. Eyes: Pupils are normal. Conjunctivae slightly pale. NECK: JVP low. Carotids are equal. Thorax AP diameter is normal. CARDIOVASCULAR: S1 and S2. LUNGS: Clear. ABDOMEN: Soft. No tenderness. No organomegaly.. EXTREMITIES: No clubbing. No cyanosis. Left knee is slightly swollen and tender and ecchymotic. LABORATORY DATA: WBC 6.9, hemoglobin 11.8, hematocrit 36.6, platelets 143. Yesterday, sodium 135, potassium 6.1, BUN 85, creatinine 8.5, and random sugar 218. DIAGNOSES: Status post fall, left knee injury, hypertension, diabetes, coronary artery disease, history of stent insertion following acute myocardial infarction at [facility] in 12/2015, history of asthma, end-stage renal failure on dialysis 3 times a week, anemia, and hyperkalemia. PLAN: The patient follows with Dr. Sussy De La O, [employer] in [facility]. She sees her regularly and follow her cardiac workup and medication with her. Clinically, the patient's cardiac status is stable. The patient does not have any anginal symptoms or any other cardiac symptoms, so we will continue carvedilol 3.125 mg p.o. daily. The patient is also getting heparin 5000 units subcutaneous q.12 hours, Protonix 40 mg daily, vancomycin 250 mg p.o. q.i.d., Plavix 75 mg daily, amlodipine 5 mg daily, we will increase it to 10 mg daily because the blood pressure is elevated. Atorvastatin 20 mg daily, insulin as ordered. The patient received Kayexalate on 11/17/2016 due to high potassium, and loperamide 2 mg p.o. q.i.d. Dialysis as per Renal. The patient is being followed by Renal. We will continue to follow with you. Joss Millan MD
[2016-11-18] MEDS: Mometasone 0.1% Cream(15 gm) TOP PRN (16:53)
[2016-11-18] MEDS: Pantoprazole 40 mg EC Tab PO SCH (16:55)
--- NOTE | 2016-11-18 17:36 | CP.PCM.CON ---
History of Present Illness - History of Present Illness History of Present Illness: Surgery Consult for Dr. Tejada We are being consulted for AV access HPI: Patient is a 71yo female who presented to the hospital after falling at home. She came complaining of b/l knee pain R. rib pain and L. wrist pain. A knee xray showed a patellar fracture that was deemed stable by Dr. Maloney. She is a dialysis patient that has been getting dialysis for the past 5 years. She had a Left brachial - subclavian fistula placed in 2013 that failed and was never used for dialysis. She has been getting dialysis every MWF thru a Right Subclavian permacath. patient is right handed. PMH: CAD, CKD, HTN, IDDM, COPD, Coronary stent 2015 PSH: AV fistula left brachial-subclavian in 2013, Hysterectomy, Wound debridment FH: unremarkable SH: Former smoker, denies drinking alcohol Meds: Insulin, plavix, Coreg Allergies: morphine, oxycodone, PCN Review of Systems - Constitutional Constitutional: As Per HPI - EENT Eyes: As Per HPI Ears: As Per HPI Nose/Mouth/Throat: As Per HPI - Breasts Breasts: As Per HPI - Cardiovascular Cardiovascular: As Per HPI - Respiratory Respiratory: As Per HPI - Gastrointestinal Gastrointestinal: As Per HPI - Genitourinary Genitourinary: As Per HPI - Reproductive: Female Reproductive:Female: As Per HPI - Menstruation Menstruation: As Per HPI - Musculoskeletal Musculoskeletal: As Per HPI - Integumentary Integumentary: As Per HPI - Neurological Neurological: As Per HPI - Psychiatric Psychiatric: As Per HPI - Endocrine Endocrine: As Per HPI - Hematologic/Lymphatic Hematologic: As Per HPI Past Patient History - Infectious Disease Hx of Infectious Diseases: None - Tetanus Immunizations Tetanus Immunization: Unknown - Past Social History Smoking Status: Never Smoked - CARDIAC Hx Cardiac Disorders: Yes Hx Hypertension: Yes - PULMONARY Hx Chronic Obstructive Pulmonary Disease (COPD): Yes - NEUROLOGICAL HX Cerebrovascular Accident: Yes (right sided) - HEENT Hx Cataracts: Yes Hx Glaucoma: Yes - RENAL Hx Renal Failure: Yes (on dialysis) - ENDOCRINE/METABOLIC Hx Diabetes Mellitus Type 2: Yes - HEMATOLOGICAL/ONCOLOGICAL Hx Blood Disorders: Yes Hx Blood Transfusions: Yes Hx Blood Transfusion Reaction: No - INTEGUMENTARY Hx Dermatological Problems: Yes Other/Comment: cellulitis, 4cm x 5cm cellulitis to upper back small dry wound in center surrounded by dark red skin, small 1cm round dry wound to left of wound - MUSCULOSKELETAL/RHEUMATOLOGICAL Hx Arthritis: Yes - GASTROINTESTINAL Hx Gastrointestinal Disorders: No - GENITOURINARY/GYNECOLOGICAL Hx Genitourinary Disorders: No - PSYCHIATRIC Hx Psychophysiologic Disorder: Yes Hx Depression: Yes Hx Emotional Abuse: No Hx Physical Abuse: No Hx Substance Use: No - SURGICAL HISTORY Hx Cholecystectomy: Yes Hx Hysterectomy: Yes Other/Comment: lav graft removal graft, wounde debbridement - ANESTHESIA Hx Anesthesia Reactions: No Hx Malignant Hyperthermia: No Meds Allergies/Adverse Reactions: Allergies Allergy/AdvReac Type Severity Reaction Status Date / Time morphine Allergy ANAPHYLAXIS Verified 06/15/16 14:56 oxycodone Allergy ANAPHYLAXIS Verified 06/15/16 14:56 Penicillins Allergy ANAPHYLAXIS Verified 06/15/16 14:56 steroids Allergy ANAPHYLAXIS Uncoded 03/19/16 23:17 - Medications Medications: Current Medications Acetaminophen (Tylenol 325mg Tab) 650 mg PO Q4H PRN PRN Reason: Pain, Mild (1-3) Last Admin: 11/14/16 07:00 Dose: 650 mg Albuterol Sulfate (Albuterol 0.083% Inhal Vianney (2.5 Mg/3 Ml) Ud) 2.5 mg IH [id number] [facility] Last Admin: 11/18/16 13:47 Dose: Not Given Amlodipine Besylate (Norvasc) 10 mg PO DAILY [facility] Atorvastatin Calcium (Lipitor) 20 mg PO DAILY [facility] Last Admin: 11/18/16 16:55 Dose: 20 mg Calcium Acetate (Phoslo) 1,334 mg PO TID [facility] Carvedilol (Coreg) 3.125 mg PO DAILY [facility] Last Admin: 11/18/16 10:15 Dose: Not Given Clopidogrel Bisulfate (Plavix) 75 mg PO DAILY [facility] Last Admin: 11/18/16 16:55 Dose: 75 mg Heparin Sodium (Porcine) (Heparin) 5,000 units SC Q12 [facility] PRN Reason: Protocol Last Admin: 11/18/16 16:32 Dose: Not Given Heparin Sodium (Porcine) (Heparin) 2,300 units ICA MOWEFR [facility] Last Admin: 11/18/16 13:29 Dose: 2,300 units Heparin Sodium (Porcine) (Heparin) 2,400 units ICV MOWEFR [facility] Last Admin: 11/18/16 13:29 Dose: 2,400 units Home Med (Home Med) 0 unit OU Q8 [facility] Insulin Detemir (Levemir) 10 unit SC HS [facility] Last Admin: 11/17/16 23:23 Dose: 10 unit Insulin Human Lispro (Humalog Low) [address] [facility] PRN Reason: Protocol Last Admin: 11/18/16 12:05 Dose: Not Given Latanoprost (Xalatan Opht) 0 ml OD HS [facility] Last Admin: 11/17/16 21:26 Dose: 2.5 ml Loperamide HCl (Imodium) 2 mg PO QID PRN PRN Reason: Diarrhea Last Admin: 11/17/16 21:21 Dose: 2 mg Mometasone Furoate (Elocon Cream) 0 gm TOP BID PRN PRN Reason: Itching / Pruritus Last Admin: 11/18/16 16:53 Dose: 2 applic Pantoprazole Sodium (Protonix Ec Tab) 40 mg PO DAILY [facility] Last Admin: 11/18/16 16:55 Dose: 40 mg Vancomycin HCl (Vancocin 25 Mg/Ml (Oral Use)) 250 mg PO QID [facility] PRN Reason: Protocol Last Admin: 11/18/16 16:37 Dose: Not Given Physical Exam - Constitutional Appears: Well, Non-toxic - Head Exam Head Exam: ATRAUMATIC, NORMAL INSPECTION, NORMOCEPHALIC - Eye Exam Eye Exam: EOMI Pupil Exam: NORMAL ACCOMODATION - ENT Exam ENT Exam: Mucous Membranes Moist - Respiratory Exam Respiratory Exam: Clear to Auscultation Bilateral, NORMAL BREATHING PATTERN - Cardiovascular Exam Cardiovascular Exam: REGULAR RHYTHM - GI/Abdominal Exam GI & Abdominal Exam: Normal Bowel Sounds, Soft. absent: Distended, Tenderness - Extremities Exam Extremities exam: Negative for: joint swelling, tenderness Additional comments: Scar on left upper arm from previous AV fistula - Back Exam Back exam: absent: CVA tenderness (L), CVA tenderness (R) Additional comments: R. permacath in R. Subclavian - Neurological Exam Neurological exam: Alert, Oriented x3 - Psychiatric Exam Psychiatric exam: Normal Affect, Normal Mood - Skin Skin Exam: Dry, Intact, Normal Color, Warm Results - Vital Signs Recent Vital Signs: Last Vital Signs Temp 98.8 F 11/18/16 15:08 Pulse 87 11/18/16 15:08 Resp 18 11/18/16 15:08 BP 146/56 L 11/18/16 15:08 Pulse Ox 100 11/18/16 15:08 - Labs Result Diagrams: 11/18/16 11:48 11/18/16 11:48 Labs: Laboratory Results - last 24 hr 11/17/16 11/18/16 11/18/16 21:17 07:22 11:13 WBC RBC Hgb Hct MCV MCH MCHC RDW Plt Count MPV Gran % Lymph % (Auto) Hand % (Auto) Eos % (Auto) Baso % (Auto) Gran # Lymph # Hand # Eos # Baso # Sodium Potassium Chloride Carbon Dioxide Anion Gap BUN Creatinine Est GFR ( Amer) Est GFR (Non-Af Amer) POC Glucose (mg/dL) 218 H 212 H 276 H Random Glucose Calcium Phosphorus Magnesium Total Bilirubin AST ALT Alkaline Phosphatase Total Protein Albumin Globulin Albumin/Globulin Ratio 11/18/16 11/18/16 11/18/16 11:48 11:48 16:47 WBC 6.6 RBC 2.93 L Hgb 11.2 L Hct 33.3 L MCV 113.7 H D MCH 38.2 H MCHC 33.6 RDW 13.0 Plt Count 187 MPV 10.3 Gran % 75.1 H Lymph % (Auto) 12.4 L Hand % (Auto) 11.3 H Eos % (Auto) 0.9 L Baso % (Auto) 0.3 Gran # 4.97 Lymph # 0.8 L Hand # 0.8 H Eos # 0.1 Baso # 0.02 Sodium 134 Potassium 4.9 Chloride 93 L Carbon Dioxide 22 Anion Gap 24 H BUN 103 H Creatinine 10.3 H* Est GFR ( Amer) 4 Est GFR (Non-Af Amer) 4 POC Glucose (mg/dL) 116 H Random Glucose 297 H Calcium 8.7 Phosphorus 6.9 H Magnesium 2.1 Total Bilirubin 0.5 AST 31 ALT 31 Alkaline Phosphatase 176 H Total Protein 8.1 Albumin 4.0 Globulin 4.1 Albumin/Globulin Ratio 1.0 L Assessment & Plan - Assessment and Plan (Free Text) Assessment: 71yo Female with CKD in need of AV fistula Plan: * cardiac consult for cardiac clearance (Olvin) * F/U vein mapping * possible OR on Friday - Date & Time Date: 11/18/16 Time: 17:00
--- NOTE | 2016-11-18 19:54 | PN ---
DATE: 11/18/2016 SUBJECTIVE: The patient is seen, lying in bed in the dialysis unit. She is awake, she is alert. She reports diarrhea. She also complains of itching in her hands and her fingers. She denies any fevers. She denies any chest pain. PHYSICAL EXAMINATION: GENERAL: Obese elderly lady, lying in bed. VITAL SIGNS: Blood pressure 177/77, heart rate 82, respiratory rate 20, and temperature 98.3. HEENT: Normocephalic, atraumatic. NECK: Supple, no JVD. LUNGS: Bilateral equal entry, bilateral rhonchi. CARDIOPULMONARY: S1 and S2. Regular rate and rhythm, no murmur, no rub. ABDOMEN: Obese, distended, soft, nontender, bowel sounds present. EXTREMITIES: 1+ pitting edema of the lower extremities. INTAKE AND OUTPUT: Not charted. LABORATORY DATA: WBC 6.6, hemoglobin 11, hematocrit 33, and platelets 187. Sodium 137, potassium 4.9, chloride 93, CO2 of 22, BUN 103, creatinine 10.3, glucose 297, calcium 8.7, phosphorus 6.9, magnesium 2.1, albumin 4.0. CURRENT MEDICATIONS: Coreg 3.125 b.i.d., heparin subcu, insulin, Imodium, Levemir, Lipitor, amlodipine, PhosLo, Plavix, Protonix, Tylenol p.o., vancomycin 250 p.o. q.i.d. ASSESSMENT AND PLAN: 1. Continue empiric p.o. vancomycin for diarrhea. 2. Recurrent hyperkalemia, poor dialysis through catheter. 3. Yfa-zsmsiof-biwauyllk diabetes mellitus, continue to monitor fingersticks and insulin coverage. 4. We will request surgical evaluation for arteriovenous access. 5. A 2 g potassium diet. Marlyn Snow MD
[2016-11-18] MEDS: Latanoprost 2.5 ml Opht Soln OD SCH (21:49)
[2016-11-18] MEDS: BRIMONIDINE 0.2% OU SCH (21:50)
[2016-11-18] MEDS: Insulin Detemir 100 units/ml Vial (Levemir) SC SCH (21:50)
[2016-11-19] MEDS: Albuterol 0.083% Inhal Sol (2.5 mg/3 mL) UD IH SCH ×4 (02:18→19:29)
--- NOTE | 2016-11-19 08:25 | CP.PCM.PN ---
Subjective - Date & Time of Evaluation Date of Evaluation: 11/19/16 Time of Evaluation: 08:22 - Subjective Subjective: Surgery Progress Note for Dr. Tejada HPI: Patient seen and examined at bedside. Doing well. Complaining of mild pain in left hand. Denies any fever, chills N/V/D. Objective - Vital Signs/Intake and Output Vital Signs (last 24 hours): Temp Pulse Resp BP Pulse Ox 98.8 F 87 18 146/56 L 100 11/18/16 15:08 11/18/16 15:08 11/18/16 15:08 11/18/16 15:08 11/18/16 15:08 Intake and Output: 11/19/16 11/19/16 06:59 18:59 Intake Total 660 Balance 660 - Medications Medications: Current Medications Acetaminophen (Tylenol 325mg Tab) 650 mg PO Q4H PRN PRN Reason: Pain, Mild (1-3) Last Admin: 11/14/16 07:00 Dose: 650 mg Albuterol Sulfate (Albuterol 0.083% Inhal Vianney (2.5 Mg/3 Ml) Ud) 2.5 mg IH [id number] [facility] Last Admin: 11/19/16 07:50 Dose: 2.5 mg Amlodipine Besylate (Norvasc) 10 mg PO DAILY [facility] Atorvastatin Calcium (Lipitor) 20 mg PO DAILY [facility] Last Admin: 11/18/16 16:55 Dose: 20 mg Calcium Acetate (Phoslo) 1,334 mg PO TID [facility] Last Admin: 11/18/16 18:23 Dose: 1,334 mg Carvedilol (Coreg) 3.125 mg PO DAILY [facility] Last Admin: 11/18/16 10:15 Dose: Not Given Clopidogrel Bisulfate (Plavix) 75 mg PO DAILY [facility] Last Admin: 11/18/16 16:55 Dose: 75 mg Heparin Sodium (Porcine) (Heparin) 5,000 units SC Q12 [facility] PRN Reason: Protocol Last Admin: 11/18/16 21:50 Dose: 5,000 units Heparin Sodium (Porcine) (Heparin) 2,300 units ICA MOWEFR [facility] Last Admin: 11/18/16 13:29 Dose: 2,300 units Heparin Sodium (Porcine) (Heparin) 2,400 units ICV MOWEFR [facility] Last Admin: 11/18/16 13:29 Dose: 2,400 units Home Med (Home Med) 0 unit OU Q8 [facility] Last Admin: 11/18/16 21:50 Dose: 1 unit Insulin Detemir (Levemir) 10 unit SC HS [facility] Last Admin: 11/18/16 21:50 Dose: 10 unit Insulin Human Lispro (Humalog Low) 0 units SC ACHS [facility] PRN Reason: Protocol Last Admin: 11/18/16 21:51 Dose: 1 units Latanoprost (Xalatan Opht) 0 ml OD HS [facility] Last Admin: 11/18/16 21:49 Dose: 2.5 ml Loperamide HCl (Imodium) 2 mg PO QID PRN PRN Reason: Diarrhea Last Admin: 11/18/16 22:00 Dose: 2 mg Mometasone Furoate (Elocon Cream) 0 gm TOP BID PRN PRN Reason: Itching / Pruritus Last Admin: 11/18/16 16:53 Dose: 2 applic Pantoprazole Sodium (Protonix Ec Tab) 40 mg PO DAILY [facility] Last Admin: 11/18/16 16:55 Dose: 40 mg Vancomycin HCl (Vancocin 25 Mg/Ml (Oral Use)) 250 mg PO QID [facility] PRN Reason: Protocol Last Admin: 11/18/16 21:29 Dose: Not Given - Labs Labs: 11/18/16 11:48 11/18/16 11:48 - Constitutional Appears: Non-toxic - Head Exam Head Exam: ATRAUMATIC, NORMAL INSPECTION, NORMOCEPHALIC - Eye Exam Additional comments: b/l glaucoma - ENT Exam ENT Exam: Mucous Membranes Moist - Neck Exam Neck Exam: Full ROM Additional comments: R. Permacath - Respiratory Exam Respiratory Exam: Clear to Ausculation Bilateral, NORMAL BREATHING PATTERN - Cardiovascular Exam Cardiovascular Exam: REGULAR RHYTHM - GI/Abdominal Exam GI & Abdominal Exam: Soft, Normal Bowel Sounds. absent: Distended, Tenderness - Extremities Exam Extremities Exam: absent: Joint Swelling, Tenderness Additional comments: L scar from previous AV fistula (Brachial-Subclavian) - Back Exam Back Exam: absent: CVA tenderness (L), CVA tenderness (R) - Neurological Exam Neurological Exam: Alert, Awake, Oriented x3 - Psychiatric Exam Psychiatric exam: Normal Affect, Normal Mood - Skin Skin Exam: Dry, Intact, Normal Color, Warm Assessment and Plan - Assessment and Plan (Free Text) Assessment: 71F W/ CKD consulted for AVF Plan: * F/U venous mapping * F/U cardiac clearance (Olvin) * Possible OR Friday * Further reccs per Dr. Terrell De La Fuente PGY1
[2016-11-19] MEDS: Insulin Lispro (humaLOG) LOW Coverage SC SCH ×4 (08:26→22:31)
--- NOTE | 2016-11-19 09:32 | PN ---
DATE: 11/18/2016 SUBJECTIVE: The patient complained of diarrhea and itchy hands. The patient refused vancomycin. She already discontinued Flagyl because of possible side effects. We talked about itchy hands; however, she is still having itchy hands and she stopped the vancomycin. The patient still has diarrhea, 4 bowel movements. She is currently on hemodialysis, sitting on the chair. Still unsteady gait, we will consider PT discussed with the patient. PHYSICAL EXAMINATION: VITAL SIGNS: Temperature of 98.8, heart rate of 87, blood pressure of 146/56, respirations of 18, and oxygen saturation of 100%. HEAD AND NECK: Normal. No JVD. No thyromegaly. CHEST: Clear. CARDIAC: First and second sounds normal. ABDOMEN: Obese and nontender. EXTREMITIES: No edema. Left knee exam reveals pain with moving the knee. NEUROLOGIC: Normal. LABORATORY DATA: White count of 6.6, hemoglobin of 11.2, hematocrit of 33.3, and platelet of 187. For renal, sodium of 134, potassium of 4.9, chloride of 93, BUN of 103, and creatinine of 10.3. Blood sugar running 297 and currently it is 116, and phosphorus is 6.9. IMPRESSION AND PLAN: 1. Acute left knee fracture. We will follow up with Dr. Issa, the orthopedic consult. The patient already got Depo-Medrol for her left knee. We will send the patient to transitional care unit for physical therapy and for her left patellar fracture, this is stable and its lateral facet. No surgery. 2. Chronic renal failure. Continue hemodialysis. 3. Diarrhea. The patient stopped vancomycin. We will get gastrointestinal consult, Dr. Bowser to evaluate this patient. Stool Clostridium difficile initially was negative. Stool culture and stool Clostridium difficile repeat was also ordered. She is off any antibiotic. 4. Diabetes. Blood sugar running high. She started eating more and we will cover her sugar. 5. Legally blind, possible glaucoma or diabetic retinopathy. We will manage as outpatient. 6. Hypertension and hypercholesterolemia. PLAN: Continue current treatment and follow up clinically. CURRENT MEDICATIONS: Nebulizer treatment for underlying COPD, Humalog low insulin coverage, Imodium, and Levemir 10 units subcutaneously daily; we are going to increase up to may be 10 units twice a day. Lipitor 10 mg p.o. daily, Norvasc 10 mg p.o. daily, PhosLo two tablets t.i.d., Plavix 75 mg, Protonix 40 mg, Tylenol, vancomycin is stopped, and Xalatan eye drops, the patient needs to get her eye drops from her home, it is not available, the other eye drops, which is Alphagan. Huey Duncan MD
[2016-11-19] MEDS: Pantoprazole 40 mg EC Tab PO SCH (10:44)
[2016-11-19] MEDS: Mometasone 0.1% Cream(15 gm) TOP PRN ×2 (10:53→22:25)
[2016-11-19] MEDS: Vancomycin 25 MG/ML PO SCH ×5 (11:02→22:26)
--- NOTE | 2016-11-19 12:26 | CP.PCM.CON ---
<Sussy Ni - Last Filed: 11/19/16 12:24> History of Present Illness - History of Present Illness History of Present Illness: Seen and examined at the bedside earlier today, the chart was reviewed. Request for GI consult is for diarrhea, refused by mouth Michelle. HPI:this is a 71-year-old female with a past medical history of chronic kidney disease on hemodialysis, hypertension, coronary artery disease status post coronary stent in 2016 came to the hospital status post fall at home. Patient came complaining of bilateral knee pain, rib pain and left wrist pain. The patient did have an x-ray which revealed a patellar fracture. The patient was reported to have had multiple loose stools after dialysis on November 17, as per nurse it was reported she had 11 loose stools. The patient on same day was started on oral vancomycin. Currently the patient refuses oral vancomycin correlating her episode of loose stools with that medication. The patient does have a history of antibiotic use, for foot infection. The patient is unsure of the name of the antibiotic but reports that she has been on it for a month. The patient received a dose of Imodium last night and has not had any episodes of loose stool. stool for C. difficile was obtained on 11/16 and that was negative, she is pending a repeat. Patient denies any history of melena or blood per rectum, she did have a colonoscopy 2 years ago and does not recall any acute findings. No complaints of any anorexia, weight loss, fever, chills, shortness of breath or chest pain. Complain of itchy hands, patient was previously on Flagyl and that was discontinued. Past medical history: Chronic kidney disease on dialysis, hypertension, diabetes mellitus, COPD, coronary artery disease, coronary stent in 2016 Surgical history: AV fistula in the left brachial subclavian, wound debridement , hysterectomy Family history: Noncontributory Social history: Former smoker, denies EtOH or substance abuse Medications: MAR reviewed, significant for Plavix Allergies: Morphine, oxycodone, penicillin, steroids ROS: Systems significant positive findings see HPI Past Patient History - Infectious Disease Hx of Infectious Diseases: None - Tetanus Immunizations Tetanus Immunization: Unknown - Past Social History Smoking Status: Never Smoked - CARDIAC Hx Cardiac Disorders: Yes Hx Hypertension: Yes - PULMONARY Hx Chronic Obstructive Pulmonary Disease (COPD): Yes - NEUROLOGICAL HX Cerebrovascular Accident: Yes (right sided) - HEENT Hx Cataracts: Yes Hx Glaucoma: Yes - RENAL Hx Renal Failure: Yes (on dialysis) - ENDOCRINE/METABOLIC Hx Diabetes Mellitus Type 2: Yes - HEMATOLOGICAL/ONCOLOGICAL Hx Blood Disorders: Yes Hx Blood Transfusions: Yes Hx Blood Transfusion Reaction: No - INTEGUMENTARY Hx Dermatological Problems: Yes Other/Comment: cellulitis, 4cm x 5cm cellulitis to upper back small dry wound in center surrounded by dark red skin, small 1cm round dry wound to left of wound - MUSCULOSKELETAL/RHEUMATOLOGICAL Hx Arthritis: Yes - GASTROINTESTINAL Hx Gastrointestinal Disorders: No - GENITOURINARY/GYNECOLOGICAL Hx Genitourinary Disorders: No - PSYCHIATRIC Hx Psychophysiologic Disorder: Yes Hx Depression: Yes Hx Emotional Abuse: No Hx Physical Abuse: No Hx Substance Use: No - SURGICAL HISTORY Hx Cholecystectomy: Yes Hx Hysterectomy: Yes Other/Comment: lav graft removal graft, wounde debbridement - ANESTHESIA Hx Anesthesia Reactions: No Hx Malignant Hyperthermia: No Meds Allergies/Adverse Reactions: Allergies Allergy/AdvReac Type Severity Reaction Status Date / Time morphine Allergy ANAPHYLAXIS Verified 06/15/16 14:56 oxycodone Allergy ANAPHYLAXIS Verified 06/15/16 14:56 Penicillins Allergy ANAPHYLAXIS Verified 06/15/16 14:56 steroids Allergy ANAPHYLAXIS Uncoded 03/19/16 23:17 - Medications Medications: Current Medications Acetaminophen (Tylenol 325mg Tab) 650 mg PO Q4H PRN PRN Reason: Pain, Mild (1-3) Last Admin: 11/14/16 07:00 Dose: 650 mg Albuterol Sulfate (Albuterol 0.083% Inhal Vianney (2.5 Mg/3 Ml) Ud) 2.5 mg IH [id number] [facility] Last Admin: 11/19/16 07:50 Dose: 2.5 mg Amlodipine Besylate (Norvasc) 10 mg PO DAILY [facility] Last Admin: 11/19/16 10:44 Dose: 10 mg Atorvastatin Calcium (Lipitor) 20 mg PO DAILY [facility] Last Admin: 11/19/16 10:44 Dose: 20 mg Calcium Acetate (Phoslo) 1,334 mg PO TID [facility] Last Admin: 11/19/16 11:17 Dose: 1,334 mg Carvedilol (Coreg) 3.125 mg PO DAILY [facility] Last Admin: 11/19/16 10:42 Dose: 3.125 mg Clopidogrel Bisulfate (Plavix) 75 mg PO DAILY [facility] Last Admin: 11/19/16 10:42 Dose: 75 mg Heparin Sodium (Porcine) (Heparin) 5,000 units SC Q12 [facility] PRN Reason: Protocol Last Admin: 11/19/16 10:52 Dose: 5,000 units Heparin Sodium (Porcine) (Heparin) 2,300 units ICA MOWEFR [facility] Last Admin: 11/18/16 13:29 Dose: 2,300 units Heparin Sodium (Porcine) (Heparin) 2,400 units ICV MOWEFR [facility] Last Admin: 11/18/16 13:29 Dose: 2,400 units Home Med (Home Med) 0 unit OU Q8 [facility] Last Admin: 11/18/16 21:50 Dose: 1 unit Insulin Detemir (Levemir) 10 unit SC HS [facility] Last Admin: 11/18/16 21:50 Dose: 10 unit Insulin Human Lispro (Humalog Low) 0 units SC ACHS [facility] PRN Reason: Protocol Last Admin: 11/19/16 11:59 Dose: 4 units Latanoprost (Xalatan Opht) 0 ml OD HS [facility] Last Admin: 11/18/16 21:49 Dose: 2.5 ml Loperamide HCl (Imodium) 2 mg PO QID PRN PRN Reason: Diarrhea Last Admin: 11/18/16 22:00 Dose: 2 mg Mometasone Furoate (Elocon Cream) 0 gm TOP BID PRN PRN Reason: Itching / Pruritus Last Admin: 11/19/16 10:53 Dose: 1 applic Pantoprazole Sodium (Protonix Ec Tab) 40 mg PO DAILY [facility] Last Admin: 11/19/16 10:44 Dose: 40 mg Vancomycin HCl (Vancocin 25 Mg/Ml (Oral Use)) 250 mg PO QID [facility] PRN Reason: Protocol Last Admin: 11/19/16 11:04 Dose: 250 mg Physical Exam - Constitutional Appears: No Acute Distress - Head Exam Head Exam: NORMOCEPHALIC - Eye Exam Eye Exam: Normal appearance. absent: Scleral icterus - ENT Exam ENT Exam: Mucous Membranes Moist - Neck Exam Neck exam: Positive for: Normal Inspection - Respiratory Exam Respiratory Exam: Clear to Auscultation Bilateral, NORMAL BREATHING PATTERN. absent: Respiratory Distress - Cardiovascular Exam Cardiovascular Exam: +S1, +S2 - GI/Abdominal Exam GI & Abdominal Exam: Normal Bowel Sounds, Organomegaly, Soft. absent: Guarding , Rebound, Tenderness - Extremities Exam Extremities exam: Negative for: calf tenderness, pedal edema - Neurological Exam Neurological exam: Alert, Oriented x3 - Skin Skin Exam: Dry, Warm Results - Vital Signs Recent Vital Signs: Last Vital Signs Temp 98.3 F 11/19/16 08:00 Pulse 90 11/19/16 10:42 Resp 18 11/19/16 08:00 BP 158/65 H 11/19/16 10:44 Pulse Ox 96 11/19/16 08:00 - Labs Result Diagrams: 11/18/16 11:48 11/18/16 11:48 Labs: Laboratory Results - last 24 hr 11/18/16 11/18/16 11/18/16 07:22 11:13 11:48 Sodium 134 Potassium 4.9 Chloride 93 L Carbon Dioxide 22 Anion Gap 24 H BUN 103 H Creatinine 10.3 H* Est GFR ( Amer) 4 Est GFR (Non-Af Amer) 4 POC Glucose (mg/dL) 212 H 276 H Random Glucose 297 H Calcium 8.7 Phosphorus 6.9 H Magnesium 2.1 Total Bilirubin 0.5 AST 31 ALT 31 Alkaline Phosphatase 176 H Total Protein 8.1 Albumin 4.0 Globulin 4.1 Albumin/Globulin Ratio 1.0 L 11/18/16 11/18/16 16:47 21:16 Sodium Potassium Chloride Carbon Dioxide Anion Gap BUN Creatinine Est GFR ( Amer) Est GFR (Non-Af Amer) POC Glucose (mg/dL) 116 H 336 H Random Glucose Calcium Phosphorus Magnesium Total Bilirubin AST ALT Alkaline Phosphatase Total Protein Albumin Globulin Albumin/Globulin Ratio Assessment & Plan - Assessment and Plan (Free Text) Assessment: Assessment: Status post fall with stable patellar fracture Diarrhea, rule out C. difficile history of antibiotic use Chronic kidney disease on dialysis Hypertension COPD Coronary artery disease status post stent Plan: Pending stool for C. difficile Patient agrees to take another dose of oral Vancomycin, if she develops diarrhea she will refuse Continue PPI Continue diet as tolerated On heparin SQ BID for DVT prophylaxis On Plavix Thank you for this consult and for allowing us to participate in your patient's care, we'll make further recommendations based on clinical course. Seen and discussed with Dr. Bowser. <Freddie Bowser V - Last Filed: 11/19/16 19:52> Meds - Medications Medications: Current Medications Acetaminophen (Tylenol 325mg Tab) 650 mg PO Q4H PRN PRN Reason: Pain, Mild (1-3) Last Admin: 11/14/16 07:00 Dose: 650 mg Albuterol Sulfate (Albuterol 0.083% Inhal Vianney (2.5 Mg/3 Ml) Ud) 2.5 mg IH [id number] [facility] Last Admin: 11/19/16 19:29 Dose: 2.5 mg Amlodipine Besylate (Norvasc) 10 mg PO DAILY [facility] Last Admin: 11/19/16 10:44 Dose: 10 mg Atorvastatin Calcium (Lipitor) 20 mg PO DAILY [facility] Last Admin: 11/19/16 10:44 Dose: 20 mg Calcium Acetate (Phoslo) 1,334 mg PO TID [facility] Last Admin: 11/19/16 18:00 Dose: 1,334 mg Carvedilol (Coreg) 3.125 mg PO DAILY [facility] Last Admin: 11/19/16 10:42 Dose: 3.125 mg Clopidogrel Bisulfate (Plavix) 75 mg PO DAILY [facility] Last Admin: 11/19/16 10:42 Dose: 75 mg Heparin Sodium (Porcine) (Heparin) 5,000 units SC Q12 [facility] PRN Reason: Protocol Last Admin: 11/19/16 10:52 Dose: 5,000 units Heparin Sodium (Porcine) (Heparin) 2,300 units ICA MOWEFR [facility] Last Admin: 11/18/16 13:29 Dose: 2,300 units Heparin Sodium (Porcine) (Heparin) 2,400 units ICV MOWEFR [facility] Last Admin: 11/18/16 13:29 Dose: 2,400 units Home Med (Home Med) 0 unit OU Q8 [facility] Last Admin: 11/19/16 14:21 Dose: 1 unit Insulin Detemir (Levemir) 10 unit SC HS [facility] Last Admin: 11/18/16 21:50 Dose: 10 unit Insulin Human Lispro (Humalog Low) 0 units SC ACHS [facility] PRN Reason: Protocol Last Admin: 11/19/16 16:51 Dose: Not Given Latanoprost (Xalatan Opht) 0 ml OD HS [facility] Last Admin: 11/18/16 21:49 Dose: 2.5 ml Loperamide HCl (Imodium) 2 mg PO QID PRN PRN Reason: Diarrhea Last Admin: 11/18/16 22:00 Dose: 2 mg Mometasone Furoate (Elocon Cream) 0 gm TOP BID PRN PRN Reason: Itching / Pruritus Last Admin: 11/19/16 10:53 Dose: 1 applic Pantoprazole Sodium (Protonix Ec Tab) 40 mg PO DAILY [facility] Last Admin: 11/19/16 10:44 Dose: 40 mg Vancomycin HCl (Vancocin 25 Mg/Ml (Oral Use)) 250 mg PO QID [facility] PRN Reason: Protocol Last Admin: 11/19/16 18:01 Dose: Not Given Results - Vital Signs Recent Vital Signs: Last Vital Signs Temp 98.6 F 11/19/16 16:00 Pulse 112 H 11/19/16 16:00 Resp 18 11/19/16 16:00 BP 132/63 11/19/16 16:00 Pulse Ox 100 11/19/16 16:00 - Labs Result Diagrams: 11/18/16 11:48 11/18/16 11:48 Labs: Laboratory Results - last 24 hr 11/18/16 11/19/16 11/19/16 21:16 07:49 16:21 POC Glucose (mg/dL) 336 H 229 H 156 H Attending/Attestation - Attestation I have personally seen and examined this patient.: Yes I have fully participated in the care of the patient.: Yes I have reviewed all pertinent clinical information: Yes Notes (Text): This is an addendum to GI progress report dictated by Sussy Ni APN.The patient was seen and examined earlier. Medical records, lab studies, imagings were reviewed. Last 24 hours events reviewed. Agreed with the above treatment plan as outlined in Sussy Ni APN's notes the with the addition of the following On examination abdomen soft there is no masses no tenderness Patient was on clindamycin before .. Creatinine admission she was on clindamycin. patient was treated with by mouth vancomycin with some initial improvement but patient recently refused to vancomycin has worsening of the diarrhea. also the initial stool test was negative. Clinically it is more suggestive of C. difficile associated diarrhea. The C. difficile test done in 1930 was negative. It is reasonable to repeat the stool studies in view of the worsening of the diarrhea. We will continue by mouth vancomycin 11/19/16 19:49
[2016-11-19] MEDS: BRIMONIDINE 0.2% OU SCH ×2 (14:21→22:41)
--- NOTE | 2016-11-19 14:27 | US ---
HISTORY: End-stage renal disease. Evaluate upper extremities for AV fistula access PHYSICIAN(S): Chaka Noel MD. FINDINGS: Right upper extremity: Right basilic vein. The right basilic vein at the wrist measures 1.4 mm. The right basilic vein in the forearm measures between 2-3 mm. The right basilic vein at the elbow measures 3 mm. The right basilic vein above the elbow is normal, measuring 3- 4 mm. Right cephalic vein. The right cephalic vein at the wrist measures 2 mm. The right cephalic vein in the forearm measures 2-3 mm. The right cephalic vein at the elbow measures 4 mm. The right cephalic vein above the elbow is large, measuring 4- 5 mm. Left upper extremity: Left basilic vein. The left basilic vein at the wrist measures 1.7 mm. The left basilic vein in the forearm measures 2 mm. The left basilic vein at the elbow is small, measuring 2 mm. The left basilic vein above the elbow is small measuring 2-3 mm. Left cephalic vein. The left cephalic vein at the wrist measures 2 mm. The left cephalic vein in the forearm measures 1-3 mm. The left cephalic vein at the elbow measures 2-3 mm. The left cephalic vein above the elbow is small, measuring 2-3 mm. No evidence of thrombus or chronic phlebitis is appreciated. IMPRESSION: 1. The right cephalic and basilic veins are adequate for AV fistula placement. The left cephalic and basilic veins are smaller but patent.
--- NOTE | 2016-11-19 15:38 | PN ---
DATE: 11/19/2016 The patient is in room 577, bed 2. REASON FOR CONSULTATION: Followup coronary artery disease, history of fall, contusion of the left knee. SUBJECTIVE: The patient is sitting in chair without any chest pain, shortness of breath, palpitation. PHYSICAL EXAMINATION: VITAL SIGNS: Blood pressure 89/49, yesterday blood pressure 146/56, another blood pressure yesterday was 177/77. Today, respirations 18, pulse 90, temperature 98.3. HEENT: Head is normocephalic. Eyes: Pupils are normal. Conjunctivae slightly pale. NECK: JVP low. Carotids are equal. THORAX: AP diameter is normal. LUNGS: Clear. CARDIOVASCULAR: S1 and S2. ABDOMEN: Soft. Nontender. No organomegaly. Bowel sound normal. EXTREMITIES: No clubbing, no cyanosis. LABORATORY DATA: WBC 6.6, hemoglobin 11.2, hematocrit 33.3, and platelets 187. Sodium 134, potassium 4.9, BUN 103, creatinine 10.3, that was on 11/18/2016. Random sugar one was 116, other was 336. AST and ALT normal. Phosphorus 6.9, calcium 8.7. Total protein and albumin is normal. DIAGNOSES: Status post fall, left knee; hypertension, diabetes, coronary artery disease, history of stent insertion, following acute myocardial infarction in [facility] in 12/2015, history of asthma, end-stage renal failure on dialysis 3 times a week, anemia. PLAN: The patient need cardiac evaluation for atrioventricular fistula. So, clinically the patient's cardiac status is stable. She has no anginal symptoms. From cardiac point of view, the patient can go for atrioventricular fistula formation as a moderate risk. The patient sees Dr. 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 The patient clinically seemed to be stable. The patient on carvedilol 3.125 p.o. daily, heparin 5000 units subcutaneous q. 12 hourly, Protonix 40 daily, Plavix 75 mg p.o. daily, amiodarone 5 mg daily, which has been increased to 10 mg daily because yesterday blood pressure was high, atorvastatin 20 mg daily, vancomycin 250 mg p.o. q.i.d. We will follow with you. Joss Millan MD
--- NOTE | 2016-11-19 20:15 | CON ---
ADDENDUM The patient was seen, history obtained and examined. According to the patient, she had a left arm dialysis access placed three years ago that never worked. She is being dialyzed via a right internal jugular Perm-A-Cath. Currently, she was told by the construction person that she needed outpatient cardiac workup first prior to any surgery, and she will make an appointment with the construction person, had a cardiology workup and then be followed up at my office as outpatient. Juli Tejada MD
[2016-11-19] MEDS: Latanoprost 2.5 ml Opht Soln OD SCH (22:26)
[2016-11-19] MEDS: Insulin Detemir 100 units/ml Vial (Levemir) SC SCH (22:26)
[2016-11-20] MEDS: Albuterol 0.083% Inhal Sol (2.5 mg/3 mL) UD IH SCH ×4 (01:35→19:46)
[2016-11-20] MEDS: BRIMONIDINE 0.2% OU SCH ×2 (06:34→17:28)
[2016-11-20] MEDS: Insulin Lispro (humaLOG) LOW Coverage SC SCH ×2 (08:28→17:28)
--- NOTE | 2016-11-20 09:29 | PN ---
DATE: 11/19/2016 SUBJECTIVE: The patient is seen lying in bed. She is awake and she is alert. She complains of pain in her left knee. She denies any chest tightness at present. She denies any abdominal pain. PHYSICAL EXAMINATION: GENERAL: An obese, elderly lady lying in bed. VITAL SIGNS: Blood pressure of 158/65, heart rate of 90, respiratory rate of 18, and temperature of 98.6. HEENT: Normocephalic and atraumatic. NECK: Supple and no JVD. LUNGS: Bilateral equal entry, bilateral rhonchi, and no rales present. CARDIAC: S1 and S2. Regular rate and rhythm. No murmur and no rub. ABDOMEN: Obese, distended, soft, nontender, and bowel sounds are present. Extremities: No lower extremity edema. INTAKE AND OUTPUT: Not charted. LABORATORY DATA: No new labs. MEDICATIONS: List reviewed. ASSESSMENT AND PLAN: 1. Status post fall. 2. ?Syncope. 3. Left knee contusion. 4. [id number] diabetes mellitus. 5. Hypertension. 6. End stage renal disease. PLAN 1. Continue current management. 2. Await vascular surgical evaluation for AV access. 3. Dialysis tomorrow. 4. Continue pain management. Marlyn Snow MD
[2016-11-20] MEDS: Mometasone 0.1% Cream(15 gm) TOP PRN (10:05)
[2016-11-20] MEDS: Pantoprazole 40 mg EC Tab PO SCH (10:07)
[2016-11-20] MEDS: Vancomycin 25 MG/ML PO SCH ×3 (10:07→17:32)
--- NOTE | 2016-11-20 10:23 | CP.PCM.PN ---
<Sussy Ni - Last Filed: 11/20/16 10:21> Subjective - Date & Time of Evaluation Date of Evaluation: 11/20/16 Time of Evaluation: 08:00 - Subjective Subjective: Seen and examined at the bedside earlier this morning and the chart was reviewed. Patient refusing oral vancomycin. She had 1 dose yesterday. Patient denies any diarrhea at this a.m., no nausea, vomiting, or abdominal pain. But reported to have episodes of diarrhea and evening. No reports of bleeding. Patient does have history of oral antibiotic use, patient was previously on clindamycin. Objective - Vital Signs/Intake and Output Vital Signs (last 24 hours): Temp Pulse Resp BP Pulse Ox 98 F 83 18 151/62 H 95 11/20/16 08:00 11/20/16 08:00 11/20/16 08:00 11/20/16 08:00 11/20/16 08:00 Intake and Output: 11/20/16 11/20/16 06:59 18:59 Intake Total 780 180 Balance 780 180 - Medications Medications: Current Medications Acetaminophen (Tylenol 325mg Tab) 650 mg PO Q4H PRN PRN Reason: Pain, Mild (1-3) Last Admin: 11/14/16 07:00 Dose: 650 mg Albuterol Sulfate (Albuterol 0.083% Inhal Vianney (2.5 Mg/3 Ml) Ud) 2.5 mg IH [id number] [facility] Last Admin: 11/20/16 07:25 Dose: 2.5 mg Amlodipine Besylate (Norvasc) 10 mg PO DAILY [facility] Last Admin: 11/20/16 10:07 Dose: Not Given Atorvastatin Calcium (Lipitor) 20 mg PO DAILY [facility] Last Admin: 11/20/16 10:06 Dose: 20 mg Calcium Acetate (Phoslo) 1,334 mg PO TID [facility] Last Admin: 11/20/16 10:07 Dose: 1,334 mg Carvedilol (Coreg) 3.125 mg PO DAILY [facility] Last Admin: 11/20/16 10:05 Dose: Not Given Clopidogrel Bisulfate (Plavix) 75 mg PO DAILY [facility] Last Admin: 11/20/16 10:07 Dose: 75 mg Heparin Sodium (Porcine) (Heparin) 5,000 units SC Q12 [facility] PRN Reason: Protocol Last Admin: 11/20/16 10:05 Dose: 5,000 units Heparin Sodium (Porcine) (Heparin) 2,300 units ICA MOWEFR [facility] Last Admin: 11/20/16 10:06 Dose: Not Given Heparin Sodium (Porcine) (Heparin) 2,400 units ICV MOWEFR [facility] Last Admin: 11/20/16 10:06 Dose: Not Given Home Med (Home Med) 0 unit OU Q8 [facility] Last Admin: 11/20/16 06:34 Dose: 1 unit Insulin Detemir (Levemir) 10 unit SC HS [facility] Last Admin: 11/19/16 22:26 Dose: 10 unit Insulin Human Lispro (Humalog Low) 0 units SC ACHS [facility] PRN Reason: Protocol Last Admin: 11/20/16 08:28 Dose: 2 units Latanoprost (Xalatan Opht) 0 ml OD [facility] Last Admin: 11/19/16 22:26 Dose: 2.5 ml Loperamide HCl (Imodium) 2 mg PO QID PRN PRN Reason: Diarrhea Last Admin: 11/18/16 22:00 Dose: 2 mg Mometasone Furoate (Elocon Cream) 0 gm TOP BID PRN PRN Reason: Itching / Pruritus Last Admin: 11/20/16 10:05 Dose: 1 applic Pantoprazole Sodium (Protonix Ec Tab) 40 mg PO DAILY [facility] Last Admin: 11/20/16 10:07 Dose: 40 mg Vancomycin HCl (Vancocin 25 Mg/Ml (Oral Use)) 250 mg PO QID [facility] PRN Reason: Protocol Last Admin: 11/20/16 10:07 Dose: 250 mg - Labs Labs: 11/18/16 11:48 11/18/16 11:48 - Constitutional Appears: No Acute Distress - Head Exam Head Exam: NORMOCEPHALIC - Eye Exam Eye Exam: Normal appearance. absent: Scleral icterus - ENT Exam ENT Exam: Mucous Membranes Moist - Neck Exam Neck Exam: Normal Inspection - Respiratory Exam Respiratory Exam: NORMAL BREATHING PATTERN. absent: Respiratory Distress - Cardiovascular Exam Cardiovascular Exam: +S1, +S2 - GI/Abdominal Exam GI & Abdominal Exam: Soft, Normal Bowel Sounds. absent: Guarding, Tenderness, Rebound - Extremities Exam Extremities Exam: Normal Capillary Refill. absent: Calf Tenderness, Pedal Edema - Neurological Exam Neurological Exam: Alert, Awake, Oriented x3 - Skin Skin Exam: Dry, Warm Assessment and Plan - Assessment and Plan (Free Text) Assessment: Assessment: Status post fall with stable patellar fracture Diarrhea, likely secodnary to history of antibiotic use, Clindamycin Chronic kidney disease on dialysis Hypertension COPD Coronary artery disease status post stent Plan: Pending stool for C. difficile on oral vancomycin but refusing, discuss w/ patient regarding indication w/ medication and possible reason for diarrhea, via manager production [facility]. Refuses PO Vanco Continue PPI Continue diet as tolerated On heparin SQ BID for DVT prophylaxis On Plavix Seen and discussed with Dr. Bowser. <Freddie Bowser V - Last Filed: 11/20/16 21:29> Objective - Vital Signs/Intake and Output Vital Signs (last 24 hours): Temp Pulse Resp BP Pulse Ox 98.2 F 92 H 20 150/80 100 11/20/16 16:00 11/20/16 16:00 11/20/16 16:00 11/20/16 16:00 11/20/16 16:00 Intake and Output: 11/20/16 11/21/16 18:59 06:59 Intake Total 180 Balance 180 - Medications Medications: Current Medications Acetaminophen (Tylenol 325mg Tab) 650 mg PO Q4H PRN PRN Reason: Pain, Mild (1-3) Last Admin: 11/20/16 18:47 Dose: 650 mg Albuterol Sulfate (Albuterol 0.083% Inhal Vianney (2.5 Mg/3 Ml) Ud) 2.5 mg IH [id number] [facility] Last Admin: 11/20/16 19:46 Dose: 2.5 mg Amlodipine Besylate (Norvasc) 10 mg PO DAILY [facility] Last Admin: 11/20/16 10:07 Dose: Not Given Atorvastatin Calcium (Lipitor) 20 mg PO DAILY [facility] Last Admin: 11/20/16 10:06 Dose: 20 mg Calcium Acetate (Phoslo) 1,334 mg PO TID [facility] Last Admin: 11/20/16 17:29 Dose: Not Given Carvedilol (Coreg) 3.125 mg PO DAILY [facility] Last Admin: 11/20/16 10:05 Dose: Not Given Clopidogrel Bisulfate (Plavix) 75 mg PO DAILY [facility] Last Admin: 11/20/16 10:07 Dose: 75 mg Heparin Sodium (Porcine) (Heparin) 5,000 units SC Q12 [facility] PRN Reason: Protocol Last Admin: 11/20/16 10:05 Dose: 5,000 units Heparin Sodium (Porcine) (Heparin) 2,300 units ICA MOWEFR [facility] Last Admin: 11/20/16 15:27 Dose: 2,300 units Heparin Sodium (Porcine) (Heparin) 2,400 units ICV MOWEFR [facility] Last Admin: 11/20/16 15:27 Dose: 2,400 units Home Med (Home Med) 0 unit OU Q8 [facility] Last Admin: 11/20/16 17:28 Dose: Not Given Insulin Detemir (Levemir) 10 unit SC HS [facility] Last Admin: 11/19/16 22:26 Dose: 10 unit Insulin Human Lispro (Humalog Low) 0 units SC ACHS [facility] PRN Reason: Protocol Last Admin: 11/20/16 17:28 Dose: Not Given Latanoprost (Xalatan Opht) 0 ml OD HS [facility] Last Admin: 11/19/16 22:26 Dose: 2.5 ml Loperamide HCl (Imodium) 2 mg PO QID PRN PRN Reason: Diarrhea Last Admin: 11/18/16 22:00 Dose: 2 mg Mometasone Furoate (Elocon Cream) 0 gm TOP BID PRN PRN Reason: Itching / Pruritus Last Admin: 11/20/16 10:05 Dose: 1 applic Pantoprazole Sodium (Protonix Ec Tab) 40 mg PO DAILY [facility] Last Admin: 11/20/16 10:07 Dose: 40 mg Vancomycin HCl (Vancocin 25 Mg/Ml (Oral Use)) 250 mg PO QID [facility] PRN Reason: Protocol Last Admin: 11/20/16 17:32 Dose: 250 mg - Labs Labs: 11/20/16 11:15 11/20/16 11:15 Attending/Attestation - Attestation I have personally seen and examined this patient.: Yes I have fully participated in the care of the patient.: Yes I have reviewed all pertinent clinical information, including history, physical exam and plan: Yes Notes (Text): This is an addendum to GI progress report dictated by Sussy Ni APN.The patient was seen and examined earlier. Medical records, lab studies, imagings were reviewed. Last 24 hours events reviewed. Agreed with the above treatment plan as outlined in Sussy Ni APN's notes the with the addition of the following on examination abdomen soft no tenderness There is most likely C. difficile associated diarrhea. Patient was on clindamycin prior to this admission Would continue the vancomycin and complete the course. Would recommend elective colonoscopy evaluation 11/20/16 21:28
[2016-11-20 11:29] LABS: BASO # 0.02 K/mm3 (0.0-2.0); BASO % 0.3 % (0.0-3.0); EOS # 0.1 (0.0-0.7); EOS % 1.6 % (1.5-5.0); GRAN # 4.51 (1.4-6.5); GRAN % 73.5 % (50.0-68.0); HEMATOCRIT 34.9 % (36.0-48.0); LYMPH # 1.1 (1.2-3.4); LYMPH % 17.3 % (22.0-35.0); MEAN CELL VOLUME 112.6 fl (80.0-105.0); MEAN CORPUSCULAR HEMOGLOBIN 37.1 pg (25.0-35.0); MEAN PLATELET VOLUME 9.8 fl (7.0-11.0); MONO # 0.5 (0.1-0.6); MONO % 7.3 % (1.0-6.0); RED CELL DISTRIBUTION WIDTH 12.6 % (11.5-14.5); WHITE BLOOD COUNT 6.1 10^3/ul (4.5-11.0)
[2016-11-20 11:46] LABS: CALCIUM 8.8 mg/dL (8.4-10.5); PHOSPHOROUS 4.7 mg/dL (2.5-4.5); POTASSIUM 4.2 mmol/L (3.6-5.0)
--- NOTE | 2016-11-20 13:59 | PN ---
DATE: 11/19/2016 SUBJECTIVE: The patient seems walking to the bathroom. She has one episode of diarrhea on 11/19/2016. The patient otherwise clinically stable. She was seen by GI consult. Refused p.o. vancomycin. She was seen by cardiology and other specialists and seems stable. PHYSICAL EXAMINATION: VITAL SIGNS: Temperature of 98.6, heart rate of 90, blood pressure is 158/65, respirations are 18, and oxygen saturation is 96% on room air. HEENT AND NECK: Normal. No JVD. No thyromegaly. CHEST: Clear. Good air entry. CARDIAC: First sound and second sound normal. ABDOMEN: Soft, obese and nontender. EXTREMITIES: No edema. The patient ambulating well. LABORATORY DATA: Laboratory study is none. She had an ultrasound of the upper extremity with no DVT. She had blood sugar running 150s to 200. At this moment, we will discuss with the patient about plan as seeing her primary as outpatient. IMPRESSION AND PLAN: 1. Left knee fracture, seems stable. It is patellar fracture. We will continue activity as tolerated. She will go home. 2. Diarrhea, seen by gastrointestinal. Clostridium difficile negative. Refused p.o. vancomycin. We will discuss with the patient about different options. May be Flagyl again and see how she will do. 3. Chronic renal failure. Continue hemodialysis. 4. Diabetes. Continue current therapy. The patient does get sometime low sugar; however, dependent what she eat at home. She usually does not eat much at home and here. So, we will continue manage her diet as she was getting at home. Keep the same insulin dosage and we will follow up clinically. 5. Hypertension, stable. Blood pressure was low yesterday, now its good. We will continue current therapy. CURRENT MEDICATIONS: Albuterol, Coreg, Elocon cream, heparin subcutaneously, Humalog low insulin coverage, Imodium, and Levemir, she takes 10 units every day. Lipitor 20, Norvasc 10, PhosLo, Plavix, Protonix, Tylenol, and vancomycin. Refused Xalatan eye drops and other home medications for her glaucoma. PLAN: Continue current therapy. Plan is to discharged to the patient in the morning. Huey Duncan MD
--- NOTE | 2016-11-20 14:12 | PN ---
DATE: 11/20/2016 LOCATION: The patient is in room #577, bed #2. REASON FOR CONSULTATION: Followup with coronary artery disease, history of fall, contusion of left knee. SUBJECTIVE: The patient is sitting in chair without any chest pain, shortness of breath, palpitation. PHYSICAL EXAMINATION: VITAL SIGNS: Blood pressure is 151/62, yesterday blood pressure was 132/63; respirations 18; pulse 83 and temperature 98. HEENT: Head is normocephalic. Eyes: Pupils normal, conjunctivae slightly pale. NECK: JVP low. Carotid equal. THORAX: AP diameter normal. LUNGS: Clear. CARDIOVASCULAR: S1 and S2. ABDOMEN: Soft, nontender. No organomegaly. Bowel sounds are normal. EXTREMITIES: No clubbing. No cyanosis. LABORATORY DATA: WBC 6.1, hemoglobin 11.5, hematocrit 34.9 and platelet 190. Sodium 136, potassium 4.2, BUN 58, creatinine 7.3, random glucose 327. Calcium 8.8. Phosphorus 4.7. DIAGNOSES: Status post fall, left knee injury; hypertension; diabetes; coronary artery disease, history of stent insertion following acute myocardial infarction in [facility] in December 2015; history of asthma; end-stage renal failure, on dialysis 3 times a week; anemia. PLAN: As we mentioned yesterday in out notes if needed arteriovenous fistula from cardiac point of view, the patient can go as a moderate risk. The patient does not have any cardiac symptoms at present. She sees Dr. Sussy De La O in [facility], shop hand, who follows the patient and the patient is continuing her medication DuoNeb hand nebulizer therapy, Coreg 3.125 daily, heparin 5000 units subQ q. 12 hours, Lipitor 20 daily, amlodipine 10 daily, Plavix 75 daily, vancomycin 250 mg p.o. q.i.d., Protonix 40 daily. We will continue present therapy and we will follow with you. Joss Millan MD
[2016-11-20 16:21] VITALS: BP 150/80; PULSE 92; RESP 20; TEMP 98.2; O2SAT 100
--- NOTE | 2016-11-20 19:47 | PN ---
DATE: 11/20/2016 SUBJECTIVE: The patient is seen in the dialysis unit. She is lying in bed. She is comfortable. She does not appear to be in any kind of distress. OBJECTIVE: VITAL SIGNS: Blood pressure 150/80, heart rate 92, respiratory rate 20, temperature 98.2. HEENT: Normocephalic, atraumatic, positive pallor. NECK: Supple, no JVD. LUNGS: Bilateral equal entry, bilateral rhonchi, no rales. CARDIAC: S1 and S2, regular rate and rhythm, no murmur, no rub. ABDOMEN: Obese, distended, soft, nontender, bowel sounds present. EXTREMITIES: Ecchymosis of the left knee. INTAKE AND OUTPUT: Not charted. LABORATORY DATA: WBC 6, hemoglobin 11.5, hematocrit 35, platelets 190. Sodium 136, potassium 4.2, chloride 93, CO2 of 26, BUN 58, creatinine 7.3, glucose 327, calcium 8.8, and phosphorus 4.7. CURRENT MEDICATIONS: DuoNeb, Coreg, heparin, insulin, loperamide, Levemir, Lipitor, amlodipine, PhosLo, Plavix, Protonix, Tylenol, and vancomycin. ASSESSMENT: 1. Status post fall. 2. Left patellar fracture. 3. Diarrhea. 4. Yxb-[id number] diabetes mellitus. 5. Hypertension. 6. Coronary artery disease. 7. End-stage renal disease. PLAN: 1. Stable dialysis. 2. Continue empiric p.o. vancomycin for diarrhea. 3. Pain management. 4. Physical therapy. 5. Fingerstick monitoring and insulin coverage. Marlyn Snow MD
[2016-11-20] MEDS ORDERED: Insulin Detemir 100 units/ml Vial (Levemir) SC SCH (21:45)
[2016-11-20] MEDS ORDERED: Insulin Reg-MEDIUM-Coverage SC SCH (22:00)
--- NOTE | 2016-11-21 10:03 | DS ---
HISTORY: The patient is comfortable, no distress. Her diarrhea seems resolving. The patient has no other complaints. She is able to walk around and will be discharged home, to be followed with nursing by [facility] and physical therapy at home. The patient getting also dialysis as outpatient. PHYSICAL EXAMINATION: As follows on discharge date: VITAL SIGNS: Temperature 98, heart rate 83, blood pressure 150/62, respiratory rate 18, saturation 100% on room air. HEAD AND NECK EXAM: Normal. No JVD. No thyromegaly. CHEST EXAM: Clear, good air entry. CARDIAC: First sound and second sound normal. ABDOMEN: Obese, nontender. EXTREMITIES: No edema. NEUROLOGIC: Normal. The patient has left knee pain and tender, but seems walking to the bathroom, walking around very well with stable gait. LABORATORY STUDY: White count 6.1, hemoglobin 11.5, hematocrit 34.9, and platelet is 190. Her chemistry is noted for sodium 136, potassium 4.2, chloride 93, bicarb 26, BUN 58, creatinine 7.3, blood sugar was in the morning 230. Calcium 8.8. Phosphorus 4.7. Blood sugar repeat was 121. HOSPITAL COURSE: The patient is clinically stable, seen by Dr. Snow, the nephrology; Dr. Millan, the cardiology; Dr. Bowser and Sussy Ni, GI consult. She is being stable and also, had seen by Dr. Chaka Noel for her veins in the upper extremity and are stable. The patient seen by nurse, Shabnam Lane and recommendation of nonsurgery and continue rehab and ambulation. She had a CT of the knee which shows a small fracture of the patella and ultrasound of upper extremity, no DVT. Head CT was negative for bleed. DISCHARGE DIAGNOSES: 1. Status post fall due to tripped over, no syncope. 2. Left knee patella fracture. 3. Left knee osteoarthritis. She got steroid injections. 4. Hypertension. 5. Insulin-dependent diabetes, needs to be followed up and diet and insulin adjustment. We will give her Levemir 50 units and follow up with her doctor as outpatient. She is getting Lantus and she is getting as outpatient , she seems doing okay with that. 6. Glaucoma. 7. Chronic renal failure, on hemodialysis. 8. Morbid obesity. The patient will need follow up as outpatient by her primary care doctor. 9. Coronary artery disease. Continue Plavix. Continue Coreg 3.125 p.o. b.i.d. PhosLo for chronic renal failure, continue hemodialysis. 10. Hypercholesterolemia. Continue Lipitor. 11. Chronic obstructive pulmonary disease. Continue inhaled bronchodilators. 12. Diarrhea. Clostridium difficile was negative. Continue vancomycin for 7 more days, total 10 days and the patient advised to follow up with her primary doctor or with me in a week. CURRENT MEDICATIONS: Cozaar 50 mg, Xalatan drops, and Humalog also 1 or 2 units before meals. She gets Lantus 25 units at night. The patient advised to hold off any insulin 70/30; however, she does follow up, uses that p.r.n. when the sugar goes up about 300 or 400, she uses it, follow up with her doctor. Huey Duncan MD
== END 2016-11-20 22:00 | disposition home or self-care (01) ==
LOC: ED 21:31 → ERH 11-13 01:55 → 5RSO 11-13 03:46 → INTOOBSV 11-14 12:29 → OBSVTOIN 11-14 12:29
PROVIDERS: ADMIT Internal Medicine; ATTEND Internal Medicine
DX: S82.002A Unspecified fracture of left patella, initial encounter for closed fracture (principal); S80.02XA Contusion of left knee, initial encounter; W01.0XXA Fall on same level from slipping, tripping and stumbling without subsequent striking against object, initial encounter; Y92.009 Unspecified place in unspecified non-institutional (private) residence as the place of occurrence of the external cause; M25.062 Hemarthrosis, left knee; M17.12 Unilateral primary osteoarthritis, left knee; I13.2 Hypertensive heart and chronic kidney disease with heart failure and with stage 5 chronic kidney disease, or end stage renal disease; N18.6 End stage renal disease; D63.1 Anemia in chronic kidney disease; E11.22 Type 2 diabetes mellitus with diabetic chronic kidney disease; E11.319 Type 2 diabetes mellitus with unspecified diabetic retinopathy without macular edema; E11.59 Type 2 diabetes mellitus with other circulatory complications; E66.01 Morbid (severe) obesity due to excess calories; E78.00 Pure hypercholesterolemia, unspecified; E87.5 Hyperkalemia; H40.9 Unspecified glaucoma; H54.8 Legal blindness, as defined in USA; I25.10 Atherosclerotic heart disease of native coronary artery without angina pectoris; I25.2 Old myocardial infarction; I50.9 Heart failure, unspecified; J44.9 Chronic obstructive pulmonary disease, unspecified; N25.81 Secondary hyperparathyroidism of renal origin; Z79.02 Long term (current) use of antithrombotics/antiplatelets; Z79.4 Long term (current) use of insulin; Z79.899 Other long term (current) drug therapy; Z86.73 Personal history of transient ischemic attack (TIA), and cerebral infarction without residual deficits; Z87.891 Personal history of nicotine dependence; Z90.49 Acquired absence of other specified parts of digestive tract; Z90.710 Acquired absence of both cervix and uterus; Z95.5 Presence of coronary angioplasty implant and graft; Z99.2 Dependence on renal dialysis
CPT/HCPCS: 36415; 70450; 71101; 73110; 73560; 73700; 80048; 80053; 82550; 82948; 83615; 83735; 84100; 84484; 84550; 85025; 85027; 87040; 87324; 93005; 93970; 94640; 94760; 97116; 97162; 97164; 99285; G0378; G8978; G8979; J1200; J1644

== ENCOUNTER 2017-06-28 22:45 | Emergency (ER) | payer MEDICARE, OTHER ==
[2017-06-28 22:56] VITALS: BMI 35.6
[2017-06-28 22:59] VITALS: RESP 18; TEMP 98.5; O2SAT 96
--- NOTE | 2017-06-28 23:14 | ED PDOC ---
Arrival/HPI - General Chief Complaint: Lower Extremity Problem/Injury Time Seen by Provider: 06/28/17 22:52 Historian: Patient, Family (Daughter and Son) - History of Present Illness Narrative History of Present Illness (Text): 06/28/17 23:09 72 year old female, whose past medical history includes renal failure on dialysis, hypertension, COPD, CVA, and diabetes, who presents to the emergency department with her daughter and son complaining of right ankle pain s/p fall 4 days ago. Patient fell on Friday due to low blood sugar and twisted her ankle. Patient was evaluated at [facility], where they did a fully body CT and was discharged. Patient states her ankle became more swollen and discolored since the fall. Patient denies any fever, chills, chest pain, shortness of breath, nausea, vomiting, diarrhea, back pain, neck pain, headache, dizziness, or any other complaints. Time/Duration: < week Symptom Onset: Gradual Symptom Course: Unchanged Activities at Onset: Light Context: Home Past Medical History - Provider Review Nursing Documentation Reviewed: Yes - Infectious Disease Hx of Infectious Diseases: None - Tetanus Immunization Tetanus Immunization: Unknown - Cardiac Hx Cardiac Disorders: Yes Hx Hypertension: Yes - Pulmonary Hx Chronic Obstructive Pulmonary Disease (COPD): Yes - Neurological HX Cerebrovascular Accident: Yes (right sided) - HEENT Hx Cataracts: Yes Hx Glaucoma: Yes - Renal Hx Renal Failure: Yes (on dialysis) - Endocrine/Metabolic Hx Diabetes Mellitus Type 2: Yes - Hematological/Oncological Hx Blood Disorders: Yes Hx Blood Transfusions: Yes Hx Blood Transfusion Reaction: No - Integumentary Hx Dermatological Disorder: Yes Other/Comment: cellulitis, 4cm x 5cm cellulitis to upper back small dry wound in center surrounded by dark red skin, small 1cm round dry wound to left of wound - Musculoskeletal/Rheumatological Hx Arthritis: Yes - Gastrointestinal Hx Gastrointestinal Disorders: No - Genitourinary/Gynecological Hx Genitourinary Disorders: No - Psychiatric Hx Psychophysiologic Disorder: Yes Hx Depression: Yes Hx Emotional Abuse: No Hx Physical Abuse: No Hx Substance Use: No - Past Surgical History Past Surgical History: No Previous - Surgical History Hx Cholecystectomy: Yes Hx Hysterectomy: Yes Other/Comment: lav graft removal graft, wounde debbridement - Anesthesia Hx Anesthesia Reactions: No Hx Malignant Hyperthermia: No - Suicidal Assessment Feels Threatened In Home Enviroment: No Family/Social History - Physician Review Nursing Documentation Reviewed: Yes Family/Social History: Unknown Family HX Smoking Status: Never Smoked Hx Alcohol Use: No Hx Substance Use: No Hx Substance Use Treatment: No Allergies/Home Meds Allergies/Adverse Reactions: Allergies morphine Allergy (Verified 06/15/16 14:56) ANAPHYLAXIS oxycodone Allergy (Verified 06/15/16 14:56) ANAPHYLAXIS Penicillins Allergy (Verified 06/15/16 14:56) ANAPHYLAXIS steroids Allergy (Uncoded 03/19/16 23:17) ANAPHYLAXIS Home Medications: Home Meds Medication Instructions Recorded Confirmed Albuterol Sulfate [Proair Hfa] 0.09 mg IH Q6 05/30/12 11/12/16 Carvedilol [Coreg] 3.125 mg PO DAILY 05/30/12 11/12/16 Insulin Aspar/Insulin N 70/30 43 units SC PRN PRN 06/15/12 11/12/16 [Novolog Mix 70/30-U/ml 3Ml] Esomeprazole Magnesium [Nexium] 40 mg PO DAILY 10/26/13 11/12/16 Atorvastatin [Lipitor] 20 mg PO DAILY 09/16/15 11/12/16 Clopidogrel [Plavix] 75 mg PO DAILY 09/16/15 11/12/16 Insulin Lispro [Humalog] 1 units SC PRN PRN 09/16/15 11/12/16 Losartan [Cozaar] 50 mg PO DAILY 09/16/15 11/12/16 Calcium Acetate [Phoslo] 667 mg PO TID 11/18/15 11/12/16 Brimonidine 0.2% [Alphagan 0.2% 1 drop OD Q8 11/19/15 11/12/16 Opht] Latanoprost 0.005% Opht [Xalatan 1 drop OD HS 11/19/15 11/12/16 Opht] Review of Systems - Physician Review All systems were reviewed & negative as marked: Yes - Review of Systems Constitutional: Normal Eyes: Normal ENT: Normal Respiratory: Normal. absent: SOB, Cough Cardiovascular: Normal. absent: Chest Pain Gastrointestinal: Normal. absent: Abdominal Pain, Diarrhea, Nausea, Vomiting Genitourinary Female: Normal. absent: Dysuria, Frequency, Hematuria, Urine Output Changes Musculoskeletal: Joint Swelling (Right ankle). absent: Back Pain, Neck Pain Skin: Other (discoloration to right ankle). absent: Rash Neurological: Normal. absent: Headache, Dizziness Endocrine: Normal Hemo/Lymphatic: Normal Psychiatric: Normal Physical Exam Vital Signs Temp Pulse Resp BP Pulse Ox 06/29/17 01:54 98.5 F 82 18 124/76 96 06/28/17 22:56 98.5 F 86 18 113/52 L 96 Temperature: Afebrile Blood Pressure: Hypotensive Pulse: Regular Respiratory Rate: Normal Appearance: Positive for: Well-Appearing, Non-Toxic, Comfortable Pain Distress: None Mental Status: Positive for: Alert and Oriented X 3 - Systems Exam Head: Present: Atraumatic, Normocephalic Pupils: Present: PERRL Extroacular Muscles: Present: EOMI Conjunctiva: Present: Normal Mouth: Present: Moist Mucous Membranes Neck: Present: Normal Range of Motion. No: MIDLINE TENDERNESS, JVD Respiratory/Chest: Present: Clear to Auscultation, Good Air Exchange. No: Respiratory Distress, Accessory Muscle Use Cardiovascular: Present: Regular Rate and Rhythm, Normal S1, S2. No: Murmurs Abdomen: No: Tenderness, Distention, Peritoneal Signs Back: Present: Normal Inspection. No: CVA Tenderness, Midline Tenderness, Paraspinal Tenderness Upper Extremity: Present: Normal Inspection. No: Cyanosis, Edema Lower Extremity: Present: Edema (Right ankle and foot), Tenderness (Tenderness to right lateral side of rigth ankle) Neurological: Present: GCS=15, CN II-XII Intact, Speech Normal Skin: Present: Warm, Dry, Normal Color. No: Rashes Psychiatric: Present: Alert, Oriented x 3, Normal Insight, Normal Concentration Medical Decision Making ED Course and Treatment: 06/28/17 23:18 Impression: 72 year old female who presents to the emergency department complaining of right ankle pain for 4 days. Plan: -- XRay Right ankle -- Labs -- VBG -- Tylenol -- Reassess and disposition Progress Notes: Doppler performed by TONY Cantrell 06/29/17 01:21 Xray Rt Ankle and foot reviewed with no fracture. Doppler performed by Óscar with good dorsal pedis b/l. Ankle nor foot appear gangrene. No cellulitis. Patient was advised to rest, elevated and ice her ankle and foot at least 3x daily. Silver wrap applied. She was advised to make sure to follow up with pmd and orthopedics. - Lab Interpretations Lab Results: 06/28/17 23:35 06/28/17 23:35 Lab Results 06/28/17 23:35: Sodium 139, Potassium 4.9, Chloride 97 L, Carbon Dioxide 26, Anion Gap 20, BUN 30 H, Creatinine 4.3 H, Est GFR ( Amer) 12, Est GFR ( Non-Af Amer) 10, Random Glucose 368 H*, Calcium 8.9 06/28/17 23:35: WBC 6.6, RBC 2.62 L, Hgb 9.6 L, Hct 30.6 L, MCV 116.8 H D, MCH 36.6 H, MCHC 31.4, RDW 14.7 H, Plt Count 174, MPV 9.9, Gran % 77.2 H, Lymph % ( Auto) 11.6 L, Toombs % (Auto) 9.5 H, Eos % (Auto) 1.5, Baso % (Auto) 0.2, Gran # 5.07, Lymph # (Auto) 0.8 L, Toombs # (Auto) 0.6, Eos # (Auto) 0.1, Baso # (Auto) 0.01 06/28/17 23:10: POC Glucose (mg/dL) 363 H - RAD Interpretation Radiology Orders: 06/28/17 23:08 ANKLE RIGHT 3 VIEWS ROUTINE [RAD] Stat 06/28/17 23:21 FOOT RIGHT 3 VIEWS ROUTINE [RAD] Stat - Medication Orders Current Medication Orders: Discontinued Medications Acetaminophen (Tylenol 325mg Tab) 650 mg PO STAT STA Stop: 06/28/17 23:10 Last Admin: 06/28/17 23:58 Dose: 650 mg Insulin Human Regular (Humulin R) 4 units SC STAT STA Stop: 06/29/17 00:31 Last Admin: 06/29/17 00:34 Dose: 4 units MAR Blood Glucose Document 06/29/17 00:34 BRENDON (Rec: 06/29/17 00:34 BRENDON [id number]) Blood Glucose Finger Stick Blood Glucose (70-120) 363 Subcutaneous Administrations Document 06/29/17 00:34 BRENDON (Rec: 06/29/17 00:34 BRENDON [id number]) Injection Site MAR Injection Site Left Arm Charges for Administration # of Subcutaneous Administrations 1 - Scribe Statement The provider has reviewed the documentation as recorded by the Scribe Carolee Pepeerlin All medical record entries made by the Leeanna were at my direction and personally dictated by me. I have reviewed the chart and agree that the record accurately reflects my personal performance of the history, physical exam, medical decision making, and the department course for this patient. I have also personally directed, reviewed, and agree with the discharge instructions and disposition. Disposition/Present on Arrival - Present on Arrival Any Indicators Present on Arrival: Yes History of DVT/PE: Yes History of Uncontrolled Diabetes: Yes Urinary Catheter: No History of Decub. Ulcer: No History Surgical Site Infection Following: None - Disposition Have Diagnosis and Disposition been Completed?: Yes Diagnosis: Ankle sprain, Hyperglycemia Disposition: HOME/ ROUTINE Disposition Time: :54 Patient Plan: Discharge Condition: IMPROVED Discharge Instructions (ExitCare): Ankle Sprain Additional Instructions: Ms Olguin, thank you for letting us take care of you today. Your provider was Dr. Damon. You were treated for Ankle Sprain, Hyperglycemia. The emergency medical care you received today was directed at your acute symptoms. If you were prescribed any medication, please fill it and take as directed. It may take several days for your symptoms to resolve. Return to the Emergency Department if your symptoms worsen, do not improve, or if you have any other problems. Please contact your doctor or call one of the physicians/clinics you have been referred to that are listed on the Patient Visit Information form that is included in your discharge packet. Bring any paperwork you were given at discharge with you along with any medications you are taking to your follow up visit. Our treatment cannot replace ongoing medical care by a primary care provider (PCP) outside of the emergency department. Thank you for allowing the [facility] team to be part of your care today. If you had an X-Ray or CT scan: A Radiologist will review the ED reading if any change in treatment is needed we will contact you. If you had a blood, urine, or wound culture: It will take several days for the results, if any change in treatment is needed we will contact you. If you had an STI test: It will take 48 hours for the results. Please call after 1 week if you have not heard back. Referrals: Rivka Lancaster MD [Primary Care Provider] - Follow up with primary Forms: [employer] (Slovenian), WORK NOTE
[2017-06-29 00:12] LABS: BASO # 0.01 K/mm3 (0.0-2.0); BASO % 0.2 % (0.0-3.0); EOS # 0.1 (0.0-0.7); EOS % 1.5 % (1.5-5.0); GRAN # 5.07 (1.4-6.5); GRAN % 77.2 % (50.0-68.0); HEMOGLOBIN 9.6 g/dL (12.0-16.0); LYMPH # 0.8 (1.2-3.4); LYMPH % 11.6 % (22.0-35.0); MEAN CELL VOLUME 116.8 fl (80.0-105.0); MEAN CORPUSCULAR HEMOGLOBIN 36.6 pg (25.0-35.0); MEAN CORPUSCULAR HGB CONC 31.4 g/dl (31.0-37.0); MEAN PLATELET VOLUME 9.9 fl (7.0-11.0); MONO # 0.6 (0.1-0.6); MONO % 9.5 % (1.0-6.0); RBC 2.62 10^6/uL (3.5-6.1); RED CELL DISTRIBUTION WIDTH 14.7 % (11.5-14.5); WHITE BLOOD COUNT 6.6 10^3/ul (4.5-11.0)
[2017-06-29 00:21] LABS: CALCIUM 8.9 mg/dL (8.4-10.5)
[2017-06-29] MEDS ORDERED: Insulin Regular 1 UNITS/0.01 ML ML SC STA ×2 (00:28→00:30)
[2017-06-29] MEDS ORDERED: Insulin Regular 1 UNITS/0.01 ML ML ONE (00:30)
[2017-06-29 01:55] VITALS: BP 124/76; PULSE 82
--- NOTE | 2017-06-29 09:37 | RAD ---
PROCEDURE: Right Ankle Radiographs. HISTORY: fall r/o fx COMPARISON: Correlation made with concurrent radiographs of the right foot FINDINGS: BONES: No evidence of acute displaced fracture nor dislocation. The osseous structures appear intact. No cortical destructive changes. There appear to be a small plantar and posterior calcaneal enthesophytes. JOINTS: Normal. No osteoarthritis. Ankle mortise maintained. Talar dome intact SOFT TISSUES: Diffuse soft tissue swelling lateral medial greater than lateral. Extensive vascular calcifications. OTHER FINDINGS: None. IMPRESSION: No evidence of acute displaced fracture nor dislocation. Diffuse soft tissue swelling medial greater than lateral. Extensive vascular calcifications. His symptoms persist or occult fracture suspected clinically recommend repeat radiographs 5-10 days as most fractures should become radiographically evident this timeframe.
--- NOTE | 2017-06-29 09:40 | RAD ---
PROCEDURE: Right Foot Radiographs. HISTORY: pain r/o fx COMPARISON: None. FINDINGS: BONES: No definitive evidence of acute displaced fracture nor dislocation. No obvious cortical destructive changes. JOINTS: Normal. SOFT TISSUES: Mild diffuse soft tissue swelling. Extensive vascular calcifications. OTHER FINDINGS: None. IMPRESSION: No evidence of acute displaced fracture or dislocation. Diffuse soft tissue swelling. Extensive vascular calcifications.
== END 2017-06-29 01:53 | disposition home or self-care (01) ==
LOC: ED 22:45
DX: S93.401A Sprain of unspecified ligament of right ankle, initial encounter (principal); W19.XXXA Unspecified fall, initial encounter; E11.65 Type 2 diabetes mellitus with hyperglycemia; I10 Essential (primary) hypertension; Z99.2 Dependence on renal dialysis

== ENCOUNTER 2017-07-07 00:56 | Inpatient (IN) | payer MEDICARE, OTHER ==
--- NOTE | 2017-07-07 01:53 | ED PDOC ---
Arrival/HPI - General Chief Complaint: Lower Extremity Problem/Injury Time Seen by Provider: 07/07/17 01:52 Historian: Patient - History of Present Illness Narrative History of Present Illness (Text): 07/07/17 01:52 Debby Olguin is a 72 year old female, whose past medical history includes ESRD on hemodialysia, diabetes, hypertension, CAD with coronary stent placement, and anemia, who presents to the Emergency department brought in by EMS accompanied by son complaining of bilateral lower swelling with associated pain for the past few days. Son reports patient recently twisted her ankle on 06/28/2017, was seen in the Emergency department, and discharged home. Son notes patient then developed lower leg erythema and discoloration, greater on the right. Patient states patient has been unable to ambulate secondary to pain. Patient denies any fever, chills, chest pain, shortness of breath, nausea, vomiting, neck pain, headache, dizziness, or any other complaints. Symptom Onset: Gradual Symptom Course: Unchanged Activities at Onset: Light Context: Home Past Medical History - Provider Review Nursing Documentation Reviewed: Yes - Infectious Disease Hx of Infectious Diseases: None - Tetanus Immunization Tetanus Immunization: Unknown - Reproductive Menopause: Yes - Cardiac Hx Cardiac Disorders: Yes Hx Hypertension: Yes Other/Comment: life vest 09/09 - Pulmonary Hx Chronic Obstructive Pulmonary Disease (COPD): Yes - Neurological HX Cerebrovascular Accident: Yes (right sided) - HEENT Hx Blind: Yes (legally blind) Hx Cataracts: Yes Hx Glaucoma: Yes - Renal Hx Renal Failure: Yes (on dialysis) Other/Comment: mon/fri/fri at [facility] - Endocrine/Metabolic Hx Diabetes Mellitus Type 2: Yes - Hematological/Oncological Hx Blood Disorders: Yes Hx Blood Transfusions: Yes Hx Blood Transfusion Reaction: No - Integumentary Hx Dermatological Disorder: Yes - Musculoskeletal/Rheumatological Hx Arthritis: Yes - Gastrointestinal Hx Gastrointestinal Disorders: No - Genitourinary/Gynecological Hx Genitourinary Disorders: No - Psychiatric Hx Psychophysiologic Disorder: Yes Hx Depression: Yes Hx Emotional Abuse: No Hx Physical Abuse: No Hx Substance Use: No - Past Surgical History Past Surgical History: No Previous - Surgical History Hx Cholecystectomy: Yes Hx Hysterectomy: Yes Other/Comment: lav graft removal graft, dialysis access rt upper chest wall - Anesthesia Hx Anesthesia Reactions: No Hx Malignant Hyperthermia: No - Suicidal Assessment Feels Threatened In Home Enviroment: No Family/Social History - Physician Review Nursing Documentation Reviewed: Yes Family/Social History: Unknown Family HX Smoking Status: Never Smoked Hx Alcohol Use: No Hx Substance Use: No Hx Substance Use Treatment: No Allergies/Home Meds Allergies/Adverse Reactions: Allergies morphine Allergy (Verified 07/07/17 01:14) ANAPHYLAXIS oxycodone Allergy (Verified 07/07/17 01:14) ANAPHYLAXIS Penicillins Allergy (Verified 07/07/17 01:14) ANAPHYLAXIS steroids Allergy (Uncoded 07/07/17 01:14) ANAPHYLAXIS Home Medications: Home Meds Medication Instructions Recorded Confirmed Insulin Aspar/Insulin N 70/30 43 units SC PRN PRN 06/15/12 11/12/16 [Novolog Mix 70/30-U/ml 3Ml] Atorvastatin [Lipitor] 20 mg PO DAILY 09/16/15 07/07/17 Clopidogrel [Plavix] 75 mg PO DAILY 09/16/15 07/07/17 Insulin Lispro [Humalog] 1 units SC PRN PRN 09/16/15 11/12/16 Losartan [Cozaar] 25 mg PO DAILY 09/16/15 07/07/17 Brimonidine 0.2% [Alphagan 0.2% 1 drop OD Q8 11/19/15 07/07/17 Opht] Latanoprost 0.005% Opht [Xalatan 1 drop OD HS 11/19/15 07/07/17 Opht] Ferrous Sulfate [Feosol] 325 mg PO DAILY 07/07/17 07/07/17 Gabapentin [Neurontin] 100 mg PO DAILY 07/07/17 07/07/17 Montelukast [Singulair] 10 mg PO DAILY 07/07/17 07/07/17 Sevelamer Carbonate [Renvela] 1,600 mg PO TID 07/07/17 07/07/17 Review of Systems - Physician Review All systems were reviewed & negative as marked: Yes - Review of Systems Constitutional: Normal. absent: Fevers Eyes: Normal ENT: Normal Respiratory: Normal. absent: SOB, Cough Cardiovascular: Normal. absent: Chest Pain Gastrointestinal: Normal. absent: Abdominal Pain, Nausea, Vomiting Genitourinary Female: Normal. absent: Dysuria, Frequency, Hematuria, Urine Output Changes Musculoskeletal: Normal Skin: Cellulitis (+bilateral lower extremity swelling, greater on right) Neurological: Normal Endocrine: Normal Hemo/Lymphatic: Normal Psychiatric: Normal Physical Exam Vital Signs Reviewed: Yes Vital Signs Temp Pulse Resp BP Pulse Ox 07/07/17 03:57 92 H 15 120/67 99 07/07/17 01:14 99.8 F H 93 H 20 127/78 99 Blood Pressure: Normal Pulse: Regular Respiratory Rate: Normal Appearance: Positive for: Non-Toxic, Comfortable Pain Distress: None Mental Status: Positive for: Alert and Oriented X 3 Finger Stick Blood Glucose: 372 - Systems Exam Head: Present: Atraumatic, Normocephalic Pupils: Present: PERRL Extroacular Muscles: Present: EOMI Conjunctiva: Present: Normal Mouth: Present: Moist Mucous Membranes Neck: Present: Normal Range of Motion Respiratory/Chest: Present: Clear to Auscultation, Good Air Exchange. No: Respiratory Distress, Accessory Muscle Use Cardiovascular: Present: Regular Rate and Rhythm, Normal S1, S2. No: Murmurs Abdomen: No: Tenderness, Distention, Peritoneal Signs Back: Present: Normal Inspection Upper Extremity: Present: Normal Inspection. No: Cyanosis, Edema Lower Extremity: Present: Erythema (Cellulitis of right lower leg). No: Edema, NORMAL PULSES (Weak pulses bilaterally) Neurological: Present: GCS=15, CN II-XII Intact, Speech Normal Skin: Present: Warm, Dry, Normal Color. No: Rashes Psychiatric: Present: Alert, Oriented x 3, Normal Insight, Normal Concentration Medical Decision Making ED Course and Treatment: 07/07/17 01:53 Impression: 72 year old female complaining of bilateral lower extremity swelling/pain and right lower leg erythema. Plan: -- US Duplex Lower Extremity -- EKG -- Chest X-ray -- Labs, troponin, blood cultures -- Reassess and disposition Prior Visits: Notes and results from previous visits were reviewed. Progress Notes: Reviewed EKG, NSR at 93 bpm. Sinus arrhythmia. Non-specific ST/T wave changes. 07/07/17 03:20 US Duplex Lower Extremity negative for DVT. 07/07/17 03:52 Chest X-ray reviewed, shows no acute processes. 07/07/17 04:[address] Duncan, who is aware and agrees with plan. Accepts pt in to his service. Pt will be admitted to [facility] for leg cellulitis. - Lab Interpretations Microbiology Results: Microbiology Results 07/07/17 02:50 Blood-Venous Blood Culture - Preliminary NO GROWTH AFTER 3 DAYS 07/07/17 02:20 Blood-Venous Blood Culture - Preliminary NO GROWTH AFTER 3 DAYS Lab Results: 07/07/17 02:20 07/07/17 02:20 Lab Results 07/07/17 02:20: Phosphorus 3.9, Magnesium 2.3 H 07/07/17 02:20: Sodium 141, Potassium 5.1 H, Chloride 98, Carbon Dioxide 29, Anion Gap 19, BUN 36 H, Creatinine 5.6 H, Est GFR ( Amer) 9, Est GFR (Non -Af Amer) 7, Random Glucose 389 H*, Calcium 8.9, Total Bilirubin 0.6, AST 39 H D , ALT 20, Alkaline Phosphatase 239 H D, Troponin I < 0.01 D, Total Protein 8.1 , Albumin 3.9, Globulin 4.2, Albumin/Globulin Ratio 0.9 L 07/07/17 02:20: PT 13.7 H, INR 1.20 H, APTT 35.9 07/07/17 02:20: WBC 8.1 D, RBC 2.69 L, Hgb 9.9 L, Hct 31.7 L, MCV 117.8 H, MCH 36.8 H, MCHC 31.2, RDW 14.9 H, Plt Count 208, MPV 9.9, Gran % 80.1 H, Lymph % ( Auto) 10.7 L, Treasure % (Auto) 7.8 H, Eos % (Auto) 1.2 L, Baso % (Auto) 0.2, Gran # 6.48, Lymph # (Auto) 0.9 L, Treasure # (Auto) 0.6, Eos # (Auto) 0.1, Baso # (Auto ) 0.02 07/07/17 01:20: POC Glucose (mg/dL) 372 H I have reviewed the lab results: Yes - RAD Interpretation Radiology Orders: 07/07/17 02:01 CHEST PORTABLE [RAD] Stat 07/07/17 02:06 DUPLEX LOWER EXTRM VEIN BILAT [US] Stat Emulsion Coater: ED Physician - EKG Interpretation Interpreted by ED Physician: Yes Type: 12 lead EKG - Medication Orders Current Medication Orders: Acetaminophen (Tylenol 325mg Tab) 650 mg PO Q4H PRN PRN Reason: Fever >100.5 F Last Admin: 07/09/17 17:04 Dose: 650 mg [facility] Pain/Vitals Document 07/09/17 17:04 MANIL (Rec: 07/09/17 17:05 MANIL [id number]) Pain Reassessment Is This A Pain ReAssessment? No Sleep Is patient sleeping during reassessment? No Presence of Pain Presence of Pain Yes Pain Scale Used Pain Scale Used Numeric Location Left, Right or Bilateral Bilateral Upper or Lower Lower Pain Location Body Site Foot Description Constant Intensity 8 Re-Assess: [facility] Pain/Vitals Document 07/09/17 18:04 FC (Rec: 07/09/17 19:39 FC [id number]) Pain Reassessment Is This A Pain ReAssessment? Yes Presence of Pain Presence of Pain No Acetaminophen (Tylenol 325mg Tab) 650 mg PO Q4H PRN PRN Reason: Pain, Mild (1-3) Last Admin: 07/08/17 15:01 Dose: 650 mg [facility] Pain/Vitals Document 07/08/17 15:01 GM (Rec: 07/08/17 15:02 GM [id number]) Pain Reassessment Is This A Pain ReAssessment? No Presence of Pain Presence of Pain Yes Pain Scale Used Pain Scale Used Numeric Location Pain Location Body Site Foot Pain Behavior Guarding Alleviating Factors Medication Re-Assess: [facility] Pain/Vitals Document 07/08/17 16:01 GM (Rec: 07/08/17 19:35 GM [id number]) Pain Reassessment Is This A Pain ReAssessment? Yes Presence of Pain Presence of Pain No Albuterol/Ipratropium (Duoneb 3 Mg/0.5 Mg (3 Ml) Ud) 3 ml IH QIDRESP [facility] Last Admin: 07/09/17 22:00 Dose: 3 ml Albuterol/Ipratropium (Duoneb 3 Mg/0.5 Mg (3 Ml) Ud) 3 ml IH [id number] PRN PRN Reason: Cough Atorvastatin Calcium (Lipitor) 20 mg PO DAILY [facility] Last Admin: 07/09/17 17:09 Dose: 20 mg Comments: patient in dialysis Brimonidine Tartrate (Alphagan P 0.15% Opht) 0 drop OP Q8H [facility] Last Admin: 07/10/17 05:21 Dose: 1 drop Clopidogrel Bisulfate (Plavix) 75 mg PO DAILY [facility] Last Admin: 07/09/17 17:06 Dose: 75 mg Comments: patient in dialysis Gabapentin (Neurontin) 100 mg PO DAILY [facility] PRN Reason: Protocol Last Admin: 07/09/17 17:07 Dose: 100 mg Comments: patient in dialysis Behavioural Document 07/09/17 17:07 MANIL (Rec: 07/09/17 17:07 [place] [id number]) Maintenance Maintenance Dose Yes Nonmedicinal Nonmedicinal Interventions Redirect Behavior Behavior for Medication: Anxiety Re-Assess: Reassess Psych Meds Document 07/09/17 18:07 (Rec: 07/09/17 19:38 [id number] Reassess Psych Med Effective Heparin Sodium (Porcine) (Heparin) 2,300 units ICA MOWEFR [facility] Last Admin: 07/09/17 13:52 Dose: 2,300 units Heparin Sodium (Porcine) (Heparin) 2,400 units [facility] Last Admin: 07/09/17 13:53 Dose: 2,400 units Insulin Detemir (Levemir) 10 unit SC [facility] Last Admin: 07/09/17 22:04 Dose: 10 unit MAR Blood Glucose Document 07/09/17 22:04 (Rec: 07/09/17 22:04 [place] [id number]) Blood Glucose Finger Stick Blood Glucose (70-120) 231 Subcutaneous Administrations Document 07/09/17 22:04 FC (Rec: 07/09/17 22:04 [place] [id number]) Charges for Administration # of Subcutaneous Administrations 1 Insulin Human Lispro (Humalog Low) 0 units SC [facility] PRN Reason: Protocol Last Admin: 07/09/17 21:45 Dose: Not Given Non-Admin Reason: Blood Sugar Parameter Latanoprost (Xalatan Opht) 0 ml OD HS [facility] Last Admin: 07/09/17 22:03 Dose: 2.5 ml Losartan Potassium (Cozaar) 25 mg PO DAILY [facility] Last Admin: 07/09/17 17:07 Dose: 25 mg Methylprednisolone (Solu-Medrol) 20 mg IVP Q12 [facility] Last Admin: 07/09/17 22:03 Dose: 20 mg IVP Administration Document 07/09/17 22:03 FC (Rec: 07/09/17 22:03 [place] [id number]) Charges for Administration # of IVP Administrations 1 Montelukast Sodium (Singulair) 10 mg PO DAILY [facility] Last Admin: 07/09/17 17:07 Dose: 10 mg Comments: patient in dialysis Sevelamer HCl (Renagel) 1,600 mg PO TID [facility] Last Admin: 07/09/17 18:30 Dose: 1,600 mg Discontinued Medications Brimonidine Tartrate (Alphagan P 0.15% Opht) 0 drop OP Q8H [facility] Last Admin: 07/07/17 17:33 Dose: Not Given Non-Admin Reason: Patient in Dialysis Darbepoetin Jovi (Aranesp) 60 mcg IV ONCE ONE Stop: 07/09/17 10:01 Last Admin: 07/09/17 13:43 Dose: 60 mcg eMAR Start Stop Document 07/09/17 13:43 RSO (Rec: 07/09/17 13:43 RSO [facility] [id number]) Intravenous Solution Start Date 07/09/17 Start Time 13:43 End Date 07/09/17 End time 13:43 Total Infusion Time 0 Darbepoetin Jovi (Aranesp) 60 mcg IVP ONCE ONE Stop: 07/09/17 13:36 Vancomycin HCl (Vancomycin 500mg In Ns) 500 mg in 100 mls @ 200 mls/hr IVPB STAT STA PRN Reason: Protocol Stop: 07/07/17 04:47 Last Admin: 07/07/17 04:59 Dose: 200 mls/hr eMAR Start Stop Document 07/07/17 04:59 TIGRE (Rec: 07/07/17 05:00 TIGRE [id number]) Intravenous Solution Start Date 07/07/17 Start Time 05:00 End Date 07/07/17 Vancomycin HCl (Vancomycin 1gm) 1 gm in 250 mls @ 167 mls/hr IVPB MWF STA PRN Reason: Protocol Stop: 07/07/17 10:16 Last Admin: 07/07/17 10:02 Dose: 167 mls/hr eMAR Start Stop Document 07/07/17 10:02 GM (Rec: 07/07/17 10:02 GM [id number]) Intravenous Solution Start Date 07/07/17 Start Time 10:02 End Date 07/07/17 End time 11:32 Total Infusion Time 90 Insulin Detemir (Levemir) 20 unit SC BID [facility] Last Admin: 07/07/17 20:42 Dose: 20 unit Comments: pt in dialysis earlier on. Subcutaneous Administrations Document 07/07/17 20:42 SG (Rec: 07/07/17 20:43 SG [facility] [id number]) Charges for Administration # of Subcutaneous Administrations 1 Insulin Detemir (Levemir) 15 unit SC BID [facility] Last Admin: 07/08/17 10:17 Dose: 15 unit Subcutaneous Administrations Document 07/08/17 10:17 GM (Rec: 07/08/17 10:17 GM [facility] [id number]) Charges for Administration # of Subcutaneous Administrations 1 Insulin Human Lispro (Humalog) 5 units SC AC [facility] Last Admin: 07/08/17 11:48 Dose: Not Given Non-Admin Reason: Blood Sugar Parameter Insulin Human Regular (Humulin R Low) 0 units SC ACHS [facility] PRN Reason: Protocol Last Admin: 07/07/17 10:05 Dose: Not Given Non-Admin Reason: Blood Sugar Parameter Non-Formulary Medication (Brimonidine 0.2% [Alphagan 0.2% Opht]) 1 drop OD Q8 [facility] Non-Formulary Medication (Sevelamer Carbonate [Renvela]) 1,600 mg PO TID [facility] - Scribe Statement The provider has reviewed the documentation as recorded by the Leeanna Junior Provider Scribe Attestation: All medical record entries made by the Scribe were at my direction and personally dictated by me. I have reviewed the chart and agree that the record accurately reflects my personal performance of the history, physical exam, medical decision making, and the department course for this patient. I have also personally directed, reviewed, and agree with the discharge instructions and disposition. Disposition/Present on Arrival - Present on Arrival Any Indicators Present on Arrival: No History of DVT/PE: Yes History of Uncontrolled Diabetes: Yes Urinary Catheter: No History of Decub. Ulcer: No History Surgical Site Infection Following: None - Disposition Have Diagnosis and Disposition been Completed?: Yes Diagnosis: Cellulitis of right leg Disposition: HOSPITALIZED Disposition Time: 04:28 Condition: GOOD
[2017-07-07 02:55] LABS: BASO # 0.02 K/mm3 (0.0-2.0); BASO % 0.2 % (0.0-3.0); EOS # 0.1 (0.0-0.7); EOS % 1.2 % (1.5-5.0); GRAN # 6.48 (1.4-6.5); GRAN % 80.1 % (50.0-68.0); HEMOGLOBIN 9.9 g/dL (12.0-16.0); LYMPH # 0.9 (1.2-3.4); LYMPH % 10.7 % (22.0-35.0); MEAN CELL VOLUME 117.8 fl (80.0-105.0); MEAN CORPUSCULAR HEMOGLOBIN 36.8 pg (25.0-35.0); MEAN CORPUSCULAR HGB CONC 31.2 g/dl (31.0-37.0); MEAN PLATELET VOLUME 9.9 fl (7.0-11.0); MONO # 0.6 (0.1-0.6); MONO % 7.8 % (1.0-6.0); RBC 2.69 10^6/uL (3.5-6.1); RED CELL DISTRIBUTION WIDTH 14.9 % (11.5-14.5); WHITE BLOOD COUNT 8.1 10^3/ul (4.5-11.0)
[2017-07-07 03:13] LABS: TROPONIN I < 0.01 ng/mL
[2017-07-07 03:14] LABS: INR 1.2 (0.93-1.08); PARTIAL THROMBOPLASTIN TIME 35.9 Seconds (25.1-36.5); PROTHROMBIN TIME 13.7 SECONDS (9.4-12.5)
[2017-07-07 03:30] LABS: ALB/GLOB RATIO 0.9 (1.1-1.8); ALBUMIN 3.9 g/dL (3.0-4.8); ALT/SGPT 20 U/L (7-56); AST/SGOT 39 U/L (14-36); BLOOD UREA NITROGEN 36 mg/dL (7-21); CALCIUM 8.9 mg/dL (8.4-10.5); GFR AFRICAN-AMERICAN 9; GFR NON-AFRICAN AMERICAN 7
[2017-07-07] MEDS ORDERED: Vancomycin 500mg in NS 500 MG/100 ML BAG IVPB STA (04:18)
[2017-07-07] MEDS ORDERED: Insulin Reg-LOW-Coverage SC SCH (07:30)
[2017-07-07] MEDS ORDERED: Non Formulary Medication (Brimonidine 0.2% [Alphagan 0.2% Opht] 1 DROP) OD SCH (08:00)
[2017-07-07] MEDS ORDERED: Vancomycin 1gm in NS 250ml 1 GM/250 ML BAG IVPB STA (08:47)
--- NOTE | 2017-07-07 09:05 | RAD ---
HISTORY: cellulitis COMPARISON: 11/12/2016 FINDINGS: LUNGS: Minimal bibasilar infiltrates or atelectasis PLEURA: No significant pleural effusion identified, no pneumothorax apparent. CARDIOVASCULAR: Mild cardiomegaly OSSEOUS STRUCTURES: No significant abnormalities. VISUALIZED UPPER ABDOMEN: Normal. OTHER FINDINGS: Dialysis catheter IMPRESSION: No active disease.
[2017-07-07] MEDS ORDERED: SEVELAMER CARBONATE 1600 MG PO SCH (10:00)
[2017-07-07] MEDS: Insulin Detemir 100 units/ml Vial (Levemir) SC SCH ×2 (10:03→20:42)
[2017-07-07] MEDS: Brimonidine 0.15% 50 DROP/5 ML BOTTLE OP SCH ×2 (10:04→17:33)
--- NOTE | 2017-07-07 10:06 | US ---
HISTORY: Leg pain and swelling. Evaluate for DVT PHYSICIAN(S): Chaka Noel MD. TECHNIQUE: Duplex sonography and color-flow Doppler with graded compression were used to evaluate the deep venous systems of both lower extremities. The exam is limited by edema. The tibial veins are not well seen. FINDINGS: The visualized deep venous systems of both lower extremities are sonographically normal and compressible. Normal wave forms and augmentation are seen. There is no sonographic evidence for deep venous thrombosis in the visualized segments of both lower extremities. IMPRESSION: No sonographic evidence for deep venous thrombosis in the visualized segments of both lower extremities.
--- NOTE | 2017-07-07 11:30 | CARD ---
APPROVED REPORT EKG Measurement Heart [id number] ID [id number] <Conclusion> Normal sinus rhythm with sinus arrhythmia Low voltage QRS Cannot rule out Anterior infarct, age undetermined Abnormal ECG
[2017-07-07] MEDS: Insulin Lispro 1 UNITS/0.01 ML SC SCH ×2 (12:32→17:33)
[2017-07-07] MEDS: Insulin Lispro (humaLOG) LOW Coverage SC SCH ×3 (12:33→21:49)
[2017-07-07 13:28] VITALS: BMI 28.6
--- NOTE | 2017-07-07 17:54 | CP.PCM.CON ---
History of Present Illness - History of Present Illness History of Present Illness: 72 year old female with PMH of ESRD on HD, DM, HTN, CAD S/P PCI, chronic anemia , came in to [facility] because of worsening bilateral lower extremity swelling with pain and erythema, more so on the left leg. She denies animal contacts, no fevers or chills, no insect bites, no soaking of feet and legs in water, no nausea or vomiting, no headache or dizziness, no abdominal pain, no diarrhea, no dysuria. She was recently seen in the ED a week ago for a sprained left ankle. Infectious Diseases consult is requested to further evaluate and manage. Review of Systems - Review of Systems All systems: reviewed and no additional remarkable complaints except (as per HPI ) Past Patient History - Infectious Disease Hx of Infectious Diseases: None - Tetanus Immunizations Tetanus Immunization: Unknown - Past Social History Smoking Status: Never Smoked - CARDIAC Hx Cardiac Disorders: Yes Hx Hypertension: Yes Other/Comment: life vest 09/09 - PULMONARY Hx Chronic Obstructive Pulmonary Disease (COPD): Yes - NEUROLOGICAL HX Cerebrovascular Accident: Yes (right sided) - HEENT Hx Blind: Yes (legally blind) Hx Cataracts: Yes Hx Glaucoma: Yes - RENAL Hx Renal Failure: Yes (on dialysis) Other/Comment: [facility]fri[facility]ri at [facility] - ENDOCRINE/METABOLIC Hx Diabetes Mellitus Type 2: Yes - HEMATOLOGICAL/ONCOLOGICAL Hx Blood Disorders: Yes Hx Blood Transfusions: Yes Hx Blood Transfusion Reaction: No - INTEGUMENTARY Hx Dermatological Problems: Yes - MUSCULOSKELETAL/RHEUMATOLOGICAL Hx Arthritis: Yes - GASTROINTESTINAL Hx Gastrointestinal Disorders: No - GENITOURINARY/GYNECOLOGICAL Hx Genitourinary Disorders: No - PSYCHIATRIC Hx Psychophysiologic Disorder: Yes Hx Depression: Yes Hx Emotional Abuse: No Hx Physical Abuse: No Hx Substance Use: No - SURGICAL HISTORY Hx Cholecystectomy: Yes Hx Hysterectomy: Yes Other/Comment: lav graft removal graft, dialysis access rt upper chest wall - ANESTHESIA Hx Anesthesia Reactions: No Hx Malignant Hyperthermia: No Meds Allergies/Adverse Reactions: Allergies Allergy/AdvReac Type Severity Reaction Status Date / Time morphine Allergy ANAPHYLAXIS Verified 07/07/17 01:14 oxycodone Allergy ANAPHYLAXIS Verified 07/07/17 01:14 Penicillins Allergy ANAPHYLAXIS Verified 07/07/17 01:14 steroids Allergy ANAPHYLAXIS Uncoded 07/07/17 01:14 - Medications Medications: Current Medications Acetaminophen (Tylenol 325mg Tab) 650 mg PO Q4H PRN PRN Reason: Fever >100.5 F Acetaminophen (Tylenol 325mg Tab) 650 mg PO Q4H PRN PRN Reason: Pain, Mild (1-3) Atorvastatin Calcium (Lipitor) 20 mg PO DAILY [facility] Brimonidine Tartrate (Alphagan P 0.15% Opht) 0 drop OP Q8H [facility] Clopidogrel Bisulfate (Plavix) 75 mg PO DAILY [facility] Gabapentin (Neurontin) 100 mg PO DAILY [facility] PRN Reason: Protocol Insulin Detemir (Levemir) 20 unit SC BID [facility] Insulin Human Lispro (Humalog Low) 0 units SC ACHS [facility] PRN Reason: Protocol Insulin Human Lispro (Humalog) 5 units SC AC [facility] Insulin Human Regular (Humulin R Low) 0 units SC ACHS [facility] PRN Reason: Protocol Latanoprost (Xalatan Opht) 0 ml OD HS [facility] Losartan Potassium (Cozaar) 25 mg PO DAILY [facility] Montelukast Sodium (Singulair) 10 mg PO DAILY [facility] Sevelamer HCl (Renagel) 1,600 mg PO TID [facility] Physical Exam - Constitutional Appears: Chronically Ill - Head Exam Head Exam: NORMAL INSPECTION - ENT Exam ENT Exam: Mucous Membranes Moist - Neck Exam Neck exam: Negative for: Meningismus - Respiratory Exam Respiratory Exam: Decreased Breath Sounds - Cardiovascular Exam Cardiovascular Exam: +S1, +S2 - GI/Abdominal Exam GI & Abdominal Exam: Soft. absent: Tenderness - Extremities Exam Additional comments: both legs with swelling, left greater than right with erythema Results - Vital Signs Recent Vital Signs: Last Vital Signs Temp 98.5 F 07/07/17 08:00 Pulse 89 07/07/17 08:00 Resp 22 07/07/17 08:00 BP 106/47 L 07/07/17 08:00 Pulse Ox 96 07/07/17 08:00 - Labs Result Diagrams: 07/07/17 02:20 07/07/17 02:20 Labs: Laboratory Results - last 24 hr 07/07/17 08:45 POC Glucose (mg/dL) 138 H Assessment & Plan - Assessment and Plan (Free Text) Plan: Assessment Consider left leg cellulitis without evidence of DVT ESRD on HD DM HTN CAD S/P PCI chronic anemia Plan Started the patient on intermittent Vancomycin dosing and will follow up blood cx; duplex ultrasound does not show DVT will monitor clinical response
[2017-07-07] MEDS: Latanoprost 2.5 ml Opht Soln OD SCH (21:50)
[2017-07-07] MEDS ORDERED: Latanoprost 2.5 ml Opht Soln OD SCH (22:00)
--- NOTE | 2017-07-07 22:55 | CON ---
DATE: 07/07/2017 REASON FOR CONSULTATION: Pain in lower extremities, elevated potassium, need for dialysis. HISTORY OF PRESENT ILLNESS: A 72-year-old lady known to me from outpatient hemodialysis. The patient was admitted yesterday with complaints of lower extremity pain. Lower extremity erythema. In the emergency room, the patient was found to be normotensive. She was found to have a low grade fever of 99.8. Initial blood work showed normal WBC count of 8, elevated potassium of 5.1. PAST MEDICAL AND SURGICAL HISTORY: NIDDM, hypertension, ESRD, diabetic retinopathy, legally blind, CAD, CHF, cardiomyopathy, anemia of chronic kidney disease, secondary hyperparathyroidism. FAMILY HISTORY: Hypertension. SOCIAL HISTORY: No smoking, no alcohol use, no IV drug abuse. ALLERGIES: PENICILLIN, STEROIDS, MORPHINE, OXYCODONE. MEDICATIONS AT HOME: Gabapentin, Feosol, Lipitor, Tylenol, Plavix, losartan 25, sevelamer, Singulair, gabapentin. REVIEW OF SYSTEMS: All systems are reviewed, pertinent positives are as mentioned in history presenting illness, rest unremarkable. PHYSICAL EXAMINATION: GENERAL: Obese elderly lady, lying in bed. VITAL SIGNS: Blood pressure 106/47, heart rate 89, respiratory rate 22, temperature 98.5. HEENT: Normocephalic, atraumatic, positive pallor. NECK: Supple, no JVD. LUNGS: Bilateral equal air entry, bilateral equal expansion, no rales. CARDIAC: S1 and S2, regular rate and rhythm, no murmur, no rub. ABDOMEN: Obese, distended, soft, nontender, bowel sounds present. EXTREMITIES: Mild erythema of the bilateral lower extremities, chronic stasis changes, mild pallor. INTAKE AND OUTPUT: Not charted. LABORATORY DATA: Sodium 141, potassium 5.1, chloride 98, CO2 of 29, BUN 36, creatinine 5.6, glucose 389, calcium 8.9, phosphorus 3.9, magnesium 2.3. Troponin less than 0.01. Albumin 3.9. WBC 8, hemoglobin 9.9, hematocrit 32, platelets 208. Lower extremity Dopplers, no sonographic evidence of DVT. CURRENT MEDICATIONS: Losartan 25, insulin, Lipitor 20, gabapentin 100, Plavix, Renagel 1600 t.i.d., Tylenol. ASSESSMENT: 1. Lower extremity cellulitis. 2. Non-insulin dependent diabetes mellitus. 3. Hypertension. 4. End-stage renal disease. 5. Coronary artery disease. 6. Anemia of chronic kidney disease. PLAN 1. Antibiotics empirically as per ID recommendations. 2. Dialysis today. 3. Intensified glycemic control. 4. Continue low-dose ARB for cardiomyopathy. 5. Continue phosphate binders. Marlyn Snow MD
[2017-07-08] MEDS: Brimonidine 0.15% 50 DROP/5 ML BOTTLE OP SCH ×3 (06:52→21:36)
[2017-07-08] MEDS: Insulin Lispro 1 UNITS/0.01 ML SC SCH ×2 (08:18→11:48)
[2017-07-08] MEDS ORDERED: Insulin Detemir 100 units/ml Vial (Levemir) SC SCH (10:00)
[2017-07-08] MEDS: Insulin Lispro (humaLOG) LOW Coverage SC SCH ×4 (10:18→21:36)
--- NOTE | 2017-07-08 15:33 | PN ---
DATE: 07/08/2017 SUBJECTIVE: The patient is currently seen sitting in a chair on 3R. She is complaining of discomfort and pain in her lower extremity. She is being treated for a left lower extremity cellulitis. She is status post one dose of vancomycin and will receive vancomycin post dialysis. MEDICATIONS: Medication list reviewed. The patient is on eyedrops, losartan, insulin, Lipitor, Neurontin, Plavix, Singulair, and Tylenol. PHYSICAL EXAMINATION: INTAKE AND OUTPUT: Intake 360, output hemodialysis. VITAL SIGNS: Blood pressure is 143/56, temperature 97.1, respiratory rate is 21, pulse is 81. HEENT: Shows her to be normocephalic, atraumatic. Conjunctivae are pale. Sclerae are nonicteric. NECK: Supple. No neck vein distention. CHEST: Scattered wheezing. No rales, rhonchi. Positive PermCath, right chest wall. CARDIOVASCULAR: Shows a regular rate and rhythm without audible murmurs, rubs, or gallops. ABDOMEN: Soft. Moderately obese. Bowel sounds normal. No rebound or guarding. No tenderness to palpation. EXTREMITIES: Show a maturing AV fistula, right upper extremity. Lower extremities show bilateral erythema with minimal edema and chronic stasis dermatitis changes. No cyanosis or clubbing. Diminished lower extremity pulses. LABORATORY DATA AND IMAGING: Extremity ultrasound done on admission showed no DVT. Admitting chest x-ray done on admission showed no acute pulmonary disease. Mild cardiomegaly. CBC: White blood cell count 8.1, hemoglobin 9.9 with a platelet count of 208,000. Chemistries show variable glucose levels as low as 30, as high as 152. Pre-dialysis chemistries yesterday showed a BUN of 36 with a creatinine of 5.6, potassium was 5.1, calcium was 8.9, phosphorus 3.9 with a magnesium level of 2.3. Microbiology, blood cultures are negative at 24 hours. ASSESSMENT: 1. End-stage renal disease. The patient will continue routine Friday, Friday, and Friday dialysis via a PermCath. She has a slowly maturing arteriovenous fistula, right upper extremity. 2. History of insulin-dependent diabetes mellitus. Avoid hypoglycemia. Continue insulin. Monitor sugars closely. 3. Hypertension. Blood pressure controlled on present medical therapy. 4. History of atherosclerotic heart disease, status post percutaneous transluminal coronary angioplasty and stent, currently stable. 5. History of lower extremity cellulitis. The patient is presently on IV vancomycin post dialysis. Follow cultures. 6. History of anemia secondary to chronic kidney disease. The patient will continue Aranesp on dialysis. 7. History of secondary hyperparathyroidism. Calcium, phosphorus levels were controlled. The patient will continue Renagel 1600 mg three times a day. 8. History of mild hyperlipidemia, controlled with diet and medical therapy. PLAN: 1. Continue to monitor clinically for response to IV vancomycin for treatment of her lower extremity cellulitis. 2. Continue to adjust insulin to avoid hypoglycemia. 3. Continue renal diet and binder therapy. 4. Continue medication for her asthma. The patient states she has been on inhalation therapy at home and we will attempt to reorder these when she brings in the medications that she is on. Nishant Mack MD
[2017-07-08] MEDS ORDERED: Albuterol-Ipratrop 3 mg / 0.5 (3 ml) UD IH PRN (16:11)
--- NOTE | 2017-07-08 16:55 | RAD ---
PROCEDURE: Left Foot Radiographs. HISTORY: foot pain s/p fall x 1 week COMPARISON: None. FINDINGS: BONES: No definitive fracture appreciated. Evaluation is especially limited regarding the proximal bases of the 4th and 5th digits this is due to the angulation and super imposition here. On the oblique view no gross fracture of the 4th proximal phalanx is seen. On this same oblique view there is still limited assessment of the 5th proximal phalanx -hypertrophic changes are believe most likely-correlate clinically with point tenderness. No metatarsal fractures noted. Inferior contour spurring. JOINTS: Normal. SOFT TISSUES: Normal. OTHER FINDINGS: None. IMPRESSION: No definitive fracture appreciated. The exam is limited most notably of the 5th proximal phalanx as referenced above. Here hypertrophic changes and super imposition Ing is believed the explanation for there appearances. Atherosclerotic vascular calcifications present. . Inferior calcaneal spurring
--- NOTE | 2017-07-08 16:57 | RAD ---
PROCEDURE: Left Ankle Radiographs.z HISTORY: s/p fall x 1 week- left ankle pain COMPARISON: None FINDINGS: BONES: No fracture. Inferior calcaneal spurring. Posterior calcaneal cortical hyperostoses- Achilles tendon insertional enthesophyte noted. JOINTS: Medial and lateral tibiotalar mild arthrosis. Tarsal midfoot arthrosis. Ankle mortise maintained. Talar dome intact SOFT TISSUES: Atherosclerotic vascular calcifications present. . OTHER FINDINGS: None. IMPRESSION: No fracture appreciated. Multifocal arthrosis. Plantar spurring in cortical hyperostoses and blending Achilles tendon insertional enthesophyte Extensive Atherosclerotic vascular calcifications present. .
--- NOTE | 2017-07-08 17:04 | PN ---
DATE: 07/08/2017 SUBJECTIVE: The patient is in bed in no acute distress, nontoxic. PHYSICAL EXAMINATION: VITAL SIGNS: Temperature is 97, blood pressure is 140/60, respiratory rate 22, heart rate of 89. HEENT: Unremarkable. NECK: Supple. LUNGS: Have decreased breath sounds. HEART: Normal S1, S2. ABDOMEN: Soft, nontender. LABORATORY DATA: Reveals a white count of 8.1, hemoglobin of 9, platelets of 208. Coagulation is noted and chemistries reveals the patient's BUN is 36, creatinine of 5.6. Microbiology reveals the blood cultures are negative. Review of orders reveals the patient to be on intermittent vancomycin. ASSESSMENT AND PLAN: A 72-year-old female seen in [facility], bed 2, with history of end-stage renal disease on hemodialysis, hypertension, diabetes, coronary artery disease status post percutaneous coronary intervention and admitted with left leg cellulitis without any evidence of deep venous thrombosis on the patient with end-stage renal disease on hemodialysis, on intermittent vancomycin, appeared to be improving in the patient with diabetes and hypertension, coronary artery disease. We will follow up with you clinically. Isaac Nation MD
--- NOTE | 2017-07-08 17:27 | CON ---
DATE: 07/08/2017 HISTORY OF PRESENT ILLNESS: A 72-year-old Lao-speaking female, seen at bedside with intelligence group supervisor present for consultation, evaluation and management of a recent sprain of her left ankle and is now complaining of acute right ankle pain as well. The patient states she went to the ER at [facility] on 06/28/2017 after sustaining a fall and having pain in her right foot and ankle. X-rays of the ankle and foot revealed no radiographic evidence of fracture, tumor or dislocation at that time. She is also reporting pain in her left ankle as well, which has worsened since her fall. PAST MEDICAL HISTORY: The patient's medical history is significant for longstanding insulin-dependent diabetes with peripheral arterial disease; end-stage renal disease, on hemodialysis 3 days a week; essential hypertension; CAD, SP PCI and chronic anemia, COPD, CVA, depression and cataracts, glaucoma and legal blindness. PAST SURGICAL HISTORY: Includes hysterectomy; cholecystectomy; LAD graft removal; dialysis shunt, right upper chest wall. ALLERGIES: THE PATIENT'S CURRENT ALLERGIES INCLUDE MORPHINE, OXYCODONE, PENICILLIN AND STEROIDS? HOME MEDICATIONS: Include insulin, Neurontin, Plavix, Alphagan, Lipitor, Tylenol, Cozaar, Singulair, Renagel and latanoprost. SOCIAL HISTORY: The patient denies ever using tobacco products. Does not drink alcohol and denies illicit drug use. VITAL SIGNS: Reveal temperature of 97.1, pulse rate of 81, blood pressure of 143/56, respiratory rate of 21. LABORATORY DATA: Laboratory findings reveal a white count of 8.1, hemoglobin of 9.9, hematocrit of 31.7, platelet count of 208. X-ray of the right foot and ankle performed on 06/28/2017 reveals no radiographic evidence of tumor, fracture or dislocation. OBJECTIVE: Nonpalpable pedal pulses noted bilaterally, +1 nonpitting lower extremity edema noted bilaterally. Bilateral lower extremities present with thin, shiny and discolored skin. Right ankle presents with pain along the medial and lateral ankle gutters at the talar dome. The patient is able to bear weight, but with pain. Left ankle presents with pain along the medial and lateral ankle gutters as well, but the pain is less severe than on the right side. There are no open lesions noted. There is no interdigital macerations. The patient is unable to detect 5.07 g monofilament wire testing bilaterally. There are no plantar lesions noted. Temperature gradient is within normal limits. ASSESSMENT: Status post fall with right ankle sprain x1 week, left ankle sprain x1 week. PLAN: The patient was examined. X-rays of the right ankle and foot were reviewed and there was found to be no dislocation, fracture or tumor. We will order an MRI to rule out possible talar dome fracture on the right ankle. We will order x-rays of the left foot and ankle for examination for possible dislocation, fracture or tumor. A light Silver wrap was applied to bilateral foot and ankles and she was told to remain off her feet until x-rays and MRI are performed. The patient will be seen and followed daily. Joel Aguilera DPM
[2017-07-08] MEDS: Albuterol-Ipratrop 3 mg / 0.5 (3 ml) UD IH SCH (18:54)
--- NOTE | 2017-07-08 19:20 | US ---
PROCEDURE: Lower extremity DENNIS exam HISTORY: Peripheral vascular disease with pain and claudication. Diabetes. PHYSICIAN(S): Chaka Noel MD. FINDINGS: The exam is limited by calcified vessels The right resting DENNIS is moderately abnormal, 0.58. The left resting DENNIS is inaccurate, 0.98. The brachial systolic pressures are symmetric. The low thigh pressures are unremarkable. Low thigh PVR waveforms are relatively normal and symmetric. The left calf PVR waveform does not augment. This could represent left SFA occlusive disease. The right ankle PVR waveform is relatively normal. The left ankle PVR waveform is moderately blunted. IMPRESSION: 1. Limited study. The ABIs are inaccurate. 2. Left SFA occlusive disease.
[2017-07-08] MEDS: Insulin Detemir 100 units/ml Vial (Levemir) SC SCH ×2 (21:33→21:40)
[2017-07-08] MEDS: Latanoprost 2.5 ml Opht Soln OD SCH (21:36)
--- NOTE | 2017-07-08 21:54 | HP ---
DATE OF EXAM: 07/07/2017 REASON FOR ADMISSION: Right leg pain, cellulitis. HISTORY OF PRESENT ILLNESS: Patient is a 72-year-old female, diabetic, on hemodialysis, insulin-dependant diabetes, hypertensive. Patient came into the hospital because of pain and change in color in her right leg, was brought in for evaluation. Patient denied any fever, any chills. As per son, she twisted her right ankle a few days ago and noticed that the patient has some lower leg redness with discoloration greater on the right. She is also unable to ambulate because of the pain. Patient denied any nausea, vomiting, fever, chills, shortness of breath, or any chest pain. PAST MEDICAL HISTORY: As I mentioned before, patient does have insulin-dependent diabetes, chronic renal failure on hemodialysis, hypertension, hypercholesterolemia. Patient also has glaucoma. She is blind in both eyes, poor vision. ALLERGIES: SHE IS ALLERGIC TO MORPHINE, OXYCODONE, PENICILLIN. HOME MEDICATIONS: She is on Renvela 1600 mg t.i.d., Singulair 10 mg once a day, Neurontin 100 mg p.o. daily, iron pills 325 mg p.o. daily, Lipitor 20 mg p.o. at bedtime, Tylenol p.r.n., Plavix 75, Alphagan 1 drop every 8 hours, Cozaar 25 daily, lansoprazole, Xalatan 1 drop every day. Patient is also using insulin; she uses Lantus 30 units once a day and she uses insulin which is quick insulin, Humalog, when the go up. She does not have a fixed dose. REVIEW OF SYSTEMS: As in the present illness, patient is blind. She has difficulty with seeing, ambulating with difficulty. She is also having general weakness. She has no chest pain, no shortness of breath. She has no nausea, no vomiting GI prado. She moves all extremities. She denied any headaches. SOCIAL HISTORY: She lives with her son. She is not using any drugs. No alcohol. No smoking. She never smoked in her life. PHYSICAL EXAMINATION: GENERAL: Patient is in the bed, stable. She did have dialysis today. VITAL SIGNS: As follow: Temperature 99.8, heart rate 93, blood pressure 127/73, respirations 20, saturation 99% on room air. HEAD AND NECK: Normal. No JVD. No thyromegaly. CHEST: Clear bilaterally. CARDIAC: First sound, second sound normal. There is systolic murmur. ABDOMEN: Soft, obese, nontender. EXTREMITIES: The right leg is warm from above the ankle and below, more on the lateral side. She does have redness, tenderness, and there is decreased pulses on both legs. NEUROLOGIC: Patient moves all extremities. She does know where she is. She is alert, awake,oriented to the place and time. LABORATORY DATA: Her laboratory study shows white count 8.1, hemoglobin 9.9, hematocrit 31.7, platelets is 208. Chemistry: Sodium 141, potassium 5.1, chloride 98, bicarbonate 29, BUN 36, creatinine 5.6, blood sugar 389, and her calcium 8.9, magnesium 2.3. Her ALT is normal, AST is slightly elevated 39, alkaline phosphatase 239. Troponin is negative. INR/PT is 1.2, PTT 35.9. We have also chest x-ray that shows minimal bibasilar infiltrates or atelectasis. Extremity ultrasound shows no evidence of deep vein thrombosis. Also, her EKG was normal sinus rhythm on admission, low voltage QRS, cannot rule out anterior infarction. IMPRESSION AND PLAN: This is a 72-year-old female, insulin-dependant diabetic on hemodialysis, came in with right leg redness, tenderness, warm sensation on the right leg consistent with cellulitis. Negative venous Doppler. We will admit the patient for cellulitis. Patient received one dose of vancomycin. We will get ID consult with Dr. Aponte and Renal consult with Dr. Snow. We will continue following up on this patient. Patient is, otherwise, medically stable. We will resume her medications and monitor her sugar. We will continue current management for now. Huey Duncan MD
[2017-07-09] MEDS: Brimonidine 0.15% 50 DROP/5 ML BOTTLE OP SCH ×3 (05:21→22:03)
[2017-07-09] MEDS: Albuterol-Ipratrop 3 mg / 0.5 (3 ml) UD IH SCH ×4 (07:31→22:00)
--- NOTE | 2017-07-09 08:21 | MRI ---
MRI right ankle History: Ankle pain. Cellulitis. Comparison: None available. Technique: Multi-echo multiplanar sequences were performed through the right ankle without the use of intravenous contrast. Findings: Reticulation and edema seen within the circumferential subcutaneous soft tissues with prominent medial malleolar soft tissue swelling. Trimalleolar fracture deformity of the ankle. Transverse linear oblique signal seen at the level of the distal medial tibia extending from the level of the anterior physis to the epiphysis posteriorly with surrounding reactive edema. Transverse oblique fracture deformity through the posterior malleolus of the distal tibia extending to the tibiotalar joint space with surrounding reactive edema. Transverse oblique fracture deformity of the distal fibula with surrounding reactive edema. Small ankle joint effusion. Moderate distal Achilles tendinopathy. Moderate thickening of the plantar fascia measuring up to 9 millimeters with adjacent bony spurring suggestive for a moderate plantar fascitis. Mild decreased T1 and increased STIR signal suggestive for a mild sinus tarsi syndrome. Small ankle joint effusion. Degenerative changes noted at the talonavicular joint space dorsally. Anterior extensor tendons are preserved. Moderate tenosynovitis of the posterior tibial tendon sheath. Remainder of the medial flexor tendons are preserved. Peroneal tendons are preserved. Suggestion of some fraying with increased signal noted at the level of the anterior tibiofibular ligament which may represent some partial tearing. Posterior tibiofibular ligament appears preserved. Partial tearing of the anterior talofibular ligament. Posterior talofibular ligament is preserved. Mild fraying with increased signal noted at the level of the Lisfranc ligament which may represent a sprain and or partial tearing. Some fraying with increased signal of the deep fibers of deltoid ligament suggestive for a low grade sprain and or mild partial tearing. Prominence the middle subtalar joint space. Impression: Trimalleolar fracture deformity of the right ankle as described above. Additional findings as above.
[2017-07-09] MEDS: Insulin Lispro (humaLOG) LOW Coverage SC SCH ×4 (08:30→21:45)
[2017-07-09] MEDS: Insulin Detemir 100 units/ml Vial (Levemir) SC SCH ×2 (09:36→22:04)
--- NOTE | 2017-07-09 09:49 | PN ---
DATE: 07/08/2017 SUBJECTIVE: The patient was getting some tests, vascular studies for her lower extremity while she is leaving. She was seen and evaluated. She has no chest pain. She has been coughing a little bit of phlegm. No wheezing, but she has been coughing. She also complained of right leg pain. PHYSICAL EXAMINATION: VITAL SIGNS: The patient's vital signs are otherwise stable. Her vitals as follow, 97.1 temperature, heart rate 81, blood pressure 143/56, respirations 21, satting 99%. HEAD AND NECK: Normal. No JVD. No thyromegaly. CHEST: Clear. Good air entry. CARDIAC: First sound and second sound normal. No murmur, gallop or rub. ABDOMEN: Soft, nontender, obese. EXTREMITIES: No edema. Right leg dark discoloration, reddish, warm, tender to touch. Digits, there is no ischemia to her toes. NEUROLOGIC: The patient move all extremities except she is blind both eyes. LABORATORY STUDY: White count 8.1, hemoglobin 9.9, hematocrit 31.7, platelets 208. Her chemistry was noted blood sugar went down to 30, sodium 141, potassium 5.1, chloride 98, bicarb 29, BUN 36, creatinine 5.6. Blood sugar was in the 100s and went down to 30, on Levemir 20 twice a day. IMPRESSION AND PLAN: 1. Cellulitis, right lower extremity. We are getting consultation with Dr. Aguilera for evaluation of lower extremity cellulitis by Podiatry as well as ID consult, Dr. Aponte. The patient is currently getting extremity ultrasound and clearance with x-ray again and ankle MRI has been ordered. She received IV vancomycin and will follow recommendation by Infectious Disease consults. 2. Cough, phlegm. We will give nebulizer treatment 4 times a day plus every 4 hours p.r.n. and we will consider giving her prednisone small dose, avoiding increasing sugar with her right leg cellulitis. She is not wheezing, but she is coughing, so it could be asthma, mild acute chronic obstructive pulmonary disease exacerbation. We will continue to monitor her condition. 3. Insulin-dependent diabetes with hypoglycemia. Decrease insulin to 10 units b.i.d. If it continue, then we will make it once a day. Continue insulin coverage only. Monitor her sugar and we will see how she will do. 4. Chronic renal failure, on hemodialysis. Continue Renagel. Continue all other medications. In addition to underlying glaucoma, continue her Xalatan and Alphagan. Continue current therapy. Follow up clinically. The patient is getting Tylenol. Her pain seems okay and we will follow up. Huey Duncan MD
[2017-07-09] MEDS ORDERED: Darbepoetin Alfa 60 mcg/ml Inj IV ONE (10:00)
[2017-07-09] MEDS: MethylPREDNISolone 40 mg Vial IVP SCH ×2 (10:00→22:03)
[2017-07-09 11:05] LABS: BASO # 0.01 K/mm3 (0.0-2.0); BASO % 0.2 % (0.0-3.0); EOS # 0.1 (0.0-0.7); GRAN # 4.52 (1.4-6.5); HEMOGLOBIN 9.1 g/dL (12.0-16.0); LYMPH # 0.9 (1.2-3.4); LYMPH % 15.4 % (22.0-35.0); MEAN CELL VOLUME 118.6 fl (80.0-105.0); MEAN CORPUSCULAR HEMOGLOBIN 36.8 pg (25.0-35.0); MEAN CORPUSCULAR HGB CONC 31.1 g/dl (31.0-37.0); MEAN PLATELET VOLUME 9.9 fl (7.0-11.0); MONO # 0.5 (0.1-0.6); MONO % 8.4 % (1.0-6.0); RBC 2.47 10^6/uL (3.5-6.1); RED CELL DISTRIBUTION WIDTH 14.7 % (11.5-14.5); WHITE BLOOD COUNT 6.1 10^3/ul (4.5-11.0)
[2017-07-09 11:14] LABS: ALB/GLOB RATIO 0.8 (1.1-1.8); ALBUMIN 3.4 g/dL (3.0-4.8); CALCIUM 8.5 mg/dL (8.4-10.5)
[2017-07-09] MEDS ORDERED: Darbepoetin Alfa 60 mcg/ml Inj IVP ONE (13:35)
--- NOTE | 2017-07-09 15:34 | PN ---
DATE: 07/09/2017 SUBJECTIVE: The patient is in bed, in no acute distress, nontoxic. PHYSICAL EXAMINATION: VITAL SIGNS: Temperature is 97, blood pressure is 120/40, respiratory rate of 22. HEENT: Unremarkable. NECK: Supple. LUNGS: Have decreased breath sounds. HEART: Normal S1 and S2. ABDOMEN: Soft. LABORATORY DATA: Reveals the patient's white count is 8000, hemoglobin is 9, platelets of 208. Coagulation is noted. Chemistries are noted. BUN of 36, creatinine of 5.6. Microbiology: Blood cultures are negative. The patient had an ankle MRI and the impression is mild partial tearing, moderate tenosynovitis. Dr. Duncan's progress note from today is reviewed. consultation is also reviewed. ASSESSMENT AND PLAN: This is a 72-year-old female seen earlier this morning in room 366, bed 2 with a history of renal disease, on hemodialysis; hypertension; diabetes; coronary artery disease, status post percutaneous coronary intervention; admitted with left leg cellulitis, no deep venous thrombosis, on intermittent vancomycin. The leg resolved and emboli is noted. The patient's antibiotic therapy is completed, no further antibiotics necessary. The patient is on Solu-Medrol 20 mg. Isaac Nation MD
--- NOTE | 2017-07-09 17:10 | CP.PCM.PN ---
Subjective - Date & Time of Evaluation Date of Evaluation: 07/09/17 Time of Evaluation: 13:00 - Subjective Subjective: Podiatry Progress Note- Dr. Ziegler 72 y.o female seen and evaluated for bilaterally lower extremity pain and swelling. Patient is seen resting comfortably in bed, in NAD, awake and alert. Patient is seen enjoying her lunch. Patient expresses the same pain to her lower extremity. Right is greater than the left. No new pedal complaints. Denies nausea, fever, shortness of breath, chest pains of chills. Interpretation Indemand used: [id number] Objective - Vital Signs/Intake and Output Vital Signs (last 24 hours): Temp Pulse Resp BP Pulse Ox 98.4 F 75 22 124/49 L 96 07/09/17 06:00 07/09/17 06:00 07/09/17 06:00 07/09/17 06:00 07/09/17 06:00 Intake and Output: 07/09/17 07/09/17 06:59 18:59 Intake Total 480 480 Output Total 0 0 Balance 480 480 - Medications Medications: Current Medications Acetaminophen (Tylenol 325mg Tab) 650 mg PO Q4H PRN PRN Reason: Fever >100.5 F Last Admin: 07/09/17 17:04 Dose: 650 mg Acetaminophen (Tylenol 325mg Tab) 650 mg PO Q4H PRN PRN Reason: Pain, Mild (1-3) Last Admin: 07/08/17 15:01 Dose: 650 mg Albuterol/Ipratropium (Duoneb 3 Mg/0.5 Mg (3 Ml) Ud) 3 ml IH QIDRESP [facility] Last Admin: 07/09/17 15:27 Dose: 3 ml Albuterol/Ipratropium (Duoneb 3 Mg/0.5 Mg (3 Ml) Ud) 3 ml IH [id number] PRN PRN Reason: Cough Atorvastatin Calcium (Lipitor) 20 mg PO DAILY [facility] Last Admin: 07/09/17 17:09 Dose: 20 mg Brimonidine Tartrate (Alphagan P 0.15% Opht) 0 drop OP Q8H [facility] Last Admin: 07/09/17 14:00 Dose: Not Given Clopidogrel Bisulfate (Plavix) 75 mg PO DAILY [facility] Last Admin: 07/09/17 17:06 Dose: 75 mg Gabapentin (Neurontin) 100 mg PO DAILY [facility] PRN Reason: Protocol Last Admin: 07/09/17 17:07 Dose: 100 mg Heparin Sodium (Porcine) (Heparin) 2,300 units ICA MOWEFR [facility] Last Admin: 07/09/17 13:52 Dose: 2,300 units Heparin Sodium (Porcine) (Heparin) 2,400 units ICV MOWEFR [facility] Last Admin: 07/09/17 13:53 Dose: 2,400 units Insulin Detemir (Levemir) 10 unit SC AMHS [facility] Last Admin: 07/09/17 09:36 Dose: 10 unit Insulin Human Lispro (Humalog Low) 0 units SC ACHS [facility] PRN Reason: Protocol Last Admin: 07/09/17 11:30 Dose: Not Given Latanoprost (Xalatan Opht) 0 ml OD HS [facility] Last Admin: 07/08/17 21:36 Dose: 2.5 ml Losartan Potassium (Cozaar) 25 mg PO DAILY [facility] Last Admin: 07/09/17 17:07 Dose: 25 mg Methylprednisolone (Solu-Medrol) 20 mg IVP Q12 [facility] Last Admin: 07/09/17 10:00 Dose: Not Given Montelukast Sodium (Singulair) 10 mg PO DAILY [facility] Last Admin: 07/09/17 17:07 Dose: 10 mg Sevelamer HCl (Renagel) 1,600 mg PO TID [facility] Last Admin: 07/09/17 17:09 Dose: 1,600 mg - Labs Labs: 07/09/17 10:20 07/09/17 10:20 PT 13.7 SECONDS (9.4-12.5) H 07/07/17 02:20 INR 1.20 (0.93-1.08) H 07/07/17 02:20 APTT 35.9 Seconds (25.1-36.5) 07/07/17 02:20 - Constitutional Appears: Well, Non-toxic, No Acute Distress - Extremities Exam Extremities Exam: absent: Calf Tenderness Additional comments: Vasc: DP and PT unpalpable bilaterally, +1 non pitting edema, CFT delayed > 4 seconds to the digits, temperature gradient WNL Ortho: pain with palpation to the right medial and lateral malleolus, generalized pain to entire right ankle, pain to medial and lateral ankle futters and at the talar dome. Generalized left ankle pain, less severe. Neuro: gross and protective sensation diminished Derm: no open lesions noted, no interdigital macerations - Neurological Exam Neurological Exam: Alert, Awake - Psychiatric Exam Psychiatric exam: Normal Affect, Normal Mood Assessment and Plan - Assessment and Plan (Free Text) Assessment: 72 y.o female with bilateral LE pain, right ankle fracture on MRI Plan: Patient examined and evaluated Discussed plan with attending Dr. Ziegler Afebrile, absent leukocytosis Labs, charts, vitals reviewed Right MRI- trimalleolar fracture deformity of the ankle, partial tearing of ATFL , partial fraying of Lisfranc ligament, sinus tarsi syndrome, moderate plantar fasciitis Left ankle X-ray- no fracture Left foot X-ray- no definite fracture apprecaited, 5th proximal phalanx hypertrophic changes Orthopedic consulted, Dr. Issa recommendations appreciated
--- NOTE | 2017-07-09 19:23 | PN ---
DATE: 07/09/2017 SUBJECTIVE: Patient is seen in the dialysis unit. She is awake, she is alert. She complains of pain. PHYSICAL EXAMINATION: GENERAL: Obese, elderly lady. VITAL SIGNS: Blood pressure 125/44, heart rate 75, respiratory rate 20, temperature 98.1. HEENT: Normocephalic, atraumatic, positive pallor. NECK: Supple, no JVD. LUNGS: Bilateral equal air entry, bilateral rhonchi. CARDIAC: S1, S2. Regular rate and rhythm. No murmur, no rub. ABDOMEN: Obese, distended, soft, nontender, bowel sounds present. EXTREMITIES: Mild erythema of the lower extremities, increased temperature. INTAKE AND OUTPUT: 480/not charted. LABORATORY DATA: WBC 6.1, hemoglobin 9, hematocrit 29, platelets 184. Sodium 139, potassium 4.7, chloride 96, CO2 of 31, BUN 33, creatinine 4.7, glucose 211, calcium 8.5, phosphorus 3.9, magnesium 2. Albumin 3.4. CURRENT MEDICATIONS: Losartan 25, DuoNeb, heparin, Lipitor, Neurontin, Plavix, Renagel, Singulair, Solu-Medrol, Tylenol. ASSESSMENT: 1. Lower extremity cellulitis. 2. Noninsulin-dependent diabetes mellitus. 3. Hypertension. 4. Coronary artery disease, congestive heart failure, cardiomyopathy. 5. End-stage renal disease. 6. Anemia of chronic kidney disease. 7. Chronic obstructive pulmonary disease. 8. Secondary hyperparathyroidism. PLAN: 1. Continue intermittent vancomycin as per Infectious Disease's recommendations. 2. Stable dialysis today. 3. Monitor fingersticks. 4. Continue low-dose ARB for cardiomyopathy. 5. Continue respiratory treatment. Marlyn Snow MD
[2017-07-09] MEDS ORDERED: Enoxaparin 30 mg Syringe SC SCH (20:00)
[2017-07-09] MEDS: Latanoprost 2.5 ml Opht Soln OD SCH (22:03)
--- NOTE | 2017-07-10 00:13 | PN ---
DATE: 07/09/2017 SUBJECTIVE: The patient is comfortable, no distress, no chest pain. Right leg x-ray shows fractures. Podiatry consult seen the patient and Orthopedic consult seen, Dr. Brush's nurse practitioner already seen the patient. The patient has otherwise no fever. No nausea. Decreased cough. Not short of breath. PHYSICAL EXAMINATION: As follow, VITAL SIGNS: Temperature 98.4, heart rate 75, blood pressure 124/49, respirations 22, saturations 96% on 3 L. HEAD AND NECK: Normal. No JVD. No thyromegaly. CHEST: Clear bilaterally. CARDIAC: First sound and second sound normal. No murmur, rub or gallop. ABDOMEN: Soft, nontender, obese. EXTREMITIES: There is no edema, but the right ankle is tender. Decreased redness and is tender to touch. No edema of both legs. NEUROLOGIC: The patient move all extremities. She does have decreased vision in both eyes. LABORATORY STUDIES: White count 6.1, hemoglobin 9.1, hematocrit 29.3, platelets 184. Chemistries: Sodium 139, potassium 4.7, chloride 96, bicarb 31, BUN 33, creatinine 4.7, blood sugar 211. Liver functions test is normal. PT, PTT are normal, PT 15.7, INR 1.2, PTT 35.9. We are going to get the ankle MRI and which has been ordered and it did show trimalleolar fracture deformity of the right ankle. Also, ligament sprain noted on the MRI. Moderate tenosynovitis and degenerative changes of the joints. The patient had ankle x-ray, which showed impression, no fracture appreciated, multifocal arthrosis, plantar spurring, cortical hyperostosis and blending Achilles . Extensive atherosclerotic vascular claudication present. The patient also had intraarterial ultrasound, which shows left saphenofemoral artery occlusive disease, inaccurate, peripheral vascular disease. IMPRESSION AND PLAN: 1. Fracture, right ankle. Surgical consult has been obtained. The patient has peripheral vascular disease, diabetes, chronic renal failure. We will put that in context and we will consult Dr. Brush for evaluation of the fracture with a conservative versus surgical intervention. 2. Cellulitis. Continue IV antibiotic as per Infectious Disease consults. Currently, the patient is off any antibiotics. She got one dose of vancomycin and seen as doing well. 3. Chronic renal failure, on hemodialysis. Seen by Dr. Snow. 4. Insulin-dependent diabetes. Slow sugar. Continue Levemir 10 units b.i.d. plus insulin coverage. 5. Coronary artery disease. Continue Plavix. 6. Hypertension. Continue Cozaar 25 mg. 7. Glaucoma. 8. Chronic obstructive pulmonary disease exacerbation. Continue IV steroids and inhaled bronchodilators and we will follow up clinically. The patient seen clinically stable. We will follow up with the other consultants. Huey Duncan MD
[2017-07-10] MEDS: Brimonidine 0.15% 50 DROP/5 ML BOTTLE OP SCH ×3 (05:21→21:49)
[2017-07-10] MEDS: Albuterol-Ipratrop 3 mg / 0.5 (3 ml) UD IH SCH ×4 (08:24→19:19)
[2017-07-10] MEDS: Insulin Lispro (humaLOG) LOW Coverage SC SCH ×4 (08:27→21:50)
[2017-07-10] MEDS: MethylPREDNISolone 40 mg Vial IVP SCH (10:02)
[2017-07-10] MEDS: Insulin Detemir 100 units/ml Vial (Levemir) SC SCH ×2 (10:02→21:48)
--- NOTE | 2017-07-10 16:14 | CARD ---
APPROVED REPORT EXAM: Two-dimensional and M-mode echocardiogram with Doppler and color Doppler. INDICATION Pre-Op LV Function: 2D DIMENSIONS RVDd4.4 (2.9-3.5cm)Left Atrium (2D)4.3 (1.6-4.0cm) IVSd0.8 (0.7-1.1cm)LVDd4.3 (3.9-5.9cm) PWd0.9 (0.7-1.1cm) M-Mode DIMENSIONS Aortic Root2.70 (2.2-3.7cm)Aortic Cusp Exc.1.60 (1.5-2.0cm) Aortic Valve AoV Peak Xtxmfswy804.0cm/Rima Peak GR.6mmHg Mitral Valve MV E Lvkfomzp26.4cm/sMV A Txexqiwj271.0cm/sE/A ratio0.9 TDI Lateral E' Peak V11.70cm/sMedial E' Peak V7.70cm/sE/Lateral E'8.1 E/Medial E'12.3 Pulmonary Valve PV Peak Gsgwneks81.8cm/sPV Peak Grad.1mmHg Tricuspid Valve TR Peak Xqyapnvi700hx/sRAP QAQJKLSA43qzWwOW Peak Gr.32mmHg [id number] LEFT VENTRICLE The left ventricle is normal size. There is normal left ventricular wall thickness. Left ventricle systolic function is low normal.EF-50-55% There is a flattened septum consistent with right ventricle volume and pressure overload. Transmitral Doppler flow pattern is Grade III-reversible restrictive diastolic dysfunction. No left ventricle thrombus noted on this study. There is no ventricular septal defect visualized. There is no left ventricular aneurysm. There is no mass noted in the left ventricle. RIGHT VENTRICLE The right ventricle is severely dilated. The right ventricle is mildly hypertrophied. Systolic function is moderately to severely reduced. ATRIA The left atrium is mildly dilated. The right atrium is severely dilated. The interatrial septum is intact with no evidence for an atrial septal defect. AORTIC VALVE The aortic valve is calcified and displays decreased opening. There is trace aortic regurgitation. There is mild valvular aortic stenosis. There is no aortic valvular vegetation. MITRAL VALVE The mitral valve is thickened but opens well. The mitral valve is moderately thickened but opens well. Mitral annular calcification is moderate. Mitral regurgitation is moderate. There is no mitral valve stenosis. There is no evidence of mitral valve prolapse. TRICUSPID VALVE The tricuspid valve leaflets are thickened , but open well. There is moderate to severe tricuspid regurgitation. Recorded [id number]-42 is underestimated b/c of configuration of tricuspid valve There is no tricuspid valve stenosis. There is no tricuspid valve prolapse or vegetation. PULMONIC VALVE The pulmonary valve is normal in structure. There is trace pulmonic valvular regurgitation. There is no pulmonic valvular stenosis. GREAT VESSELS The aortic root is normal in size. The ascending aorta is normal in size. The pulmonary artery is normal. The IVC is dilated. PERICARDIAL EFFUSION There is no pleural effusion. There is no pericardial effusion. <Conclusion> The left ventricle is normal size. There is normal left ventricular wall thickness. Left ventricle systolic function is low normal.EF-50-55% There is trace aortic regurgitation. Mitral regurgitation is moderate. There is moderate to severe tricuspid regurgitation. Recorded RVSP-42 is underestimated b/c of configuration of tricuspid valve The IVC is dilated. There is no pericardial effusion. There is a flattened septum consistent with right ventricle volume and pressure overload. No vegetation or thrombus noted.
--- NOTE | 2017-07-10 17:17 | CP.PCM.PN ---
Subjective - Date & Time of Evaluation Date of Evaluation: 07/10/17 Time of Evaluation: 17:12 - Subjective Subjective: Patient alert and awake, laying in bed. Patient has been non weight bearing. Patient denies any significant pain R ankle. Minimal swelling. Lower right extremity still erythematous. Tenderness over the medial and lateral malleolus. Patient tolerating active range of motion of the ankle. Calf and thigh are soft and nontender. NVI distally R trimalleolar fx Posterior leg splint applied Continue NWB At this time, do not recommend surgical intervention. Will continue to follow. Objective - Vital Signs/Intake and Output Vital Signs (last 24 hours): Temp Pulse Resp BP Pulse Ox 97.6 F 89 20 158/71 H 95 07/10/17 07:37 07/10/17 13:07 07/10/17 07:37 07/10/17 13:07 07/10/17 07:37 Intake and Output: 07/10/17 07/10/17 06:59 18:59 Intake Total 120 420 Balance 120 420 - Medications Medications: Current Medications Acetaminophen (Tylenol 325mg Tab) 650 mg PO Q4H PRN PRN Reason: Fever >100.5 F Last Admin: 07/09/17 17:04 Dose: 650 mg Acetaminophen (Tylenol 325mg Tab) 650 mg PO Q4H PRN PRN Reason: Pain, Mild (1-3) Last Admin: 07/08/17 15:01 Dose: 650 mg Albuterol/Ipratropium (Duoneb 3 Mg/0.5 Mg (3 Ml) Ud) 3 ml IH QIDRESP [facility] Last Admin: 07/10/17 16:22 Dose: 3 ml Albuterol/Ipratropium (Duoneb 3 Mg/0.5 Mg (3 Ml) Ud) 3 ml IH [id number] PRN PRN Reason: Cough Atorvastatin Calcium (Lipitor) 20 mg PO DAILY [facility] Last Admin: 07/10/17 10:00 Dose: 20 mg Brimonidine Tartrate (Alphagan P 0.15% Opht) 0 drop OP Q8H [facility] Last Admin: 07/10/17 12:59 Dose: 1 drop Clopidogrel Bisulfate (Plavix) 75 mg PO DAILY [facility] Last Admin: 07/10/17 10:01 Dose: 75 mg Gabapentin (Neurontin) 100 mg PO DAILY [facility] PRN Reason: Protocol Last Admin: 07/10/17 10:00 Dose: 100 mg Heparin Sodium (Porcine) (Heparin) 2,300 units ICA MOWEFR [facility] Last Admin: 07/09/17 13:52 Dose: 2,300 units Heparin Sodium (Porcine) (Heparin) 2,400 units ICV MOWEFR [facility] Last Admin: 07/09/17 13:53 Dose: 2,400 units Insulin Detemir (Levemir) 10 unit SC AMHS [facility] Last Admin: 07/10/17 10:02 Dose: 10 unit Insulin Human Lispro (Humalog Low) 0 units SC ACHS [facility] PRN Reason: Protocol Last Admin: 07/10/17 11:34 Dose: 3 units Latanoprost (Xalatan Opht) 0 ml OD HS [facility] Last Admin: 07/09/17 22:03 Dose: 2.5 ml Losartan Potassium (Cozaar) 25 mg PO DAILY [facility] Last Admin: 07/10/17 10:01 Dose: 25 mg Metoprolol Tartrate (Lopressor) 25 mg PO BID [facility] Montelukast Sodium (Singulair) 10 mg PO DAILY [facility] Last Admin: 07/10/17 10:00 Dose: 10 mg Prednisone (Prednisone Tab) 10 mg PO DAILY [facility] Sevelamer HCl (Renagel) 1,600 mg PO TID [facility] Last Admin: 07/10/17 13:02 Dose: 1,600 mg - Labs Labs: 07/09/17 10:20 07/09/17 10:20 PT 13.7 SECONDS (9.4-12.5) H 07/07/17 02:20 INR 1.20 (0.93-1.08) H 07/07/17 02:20 APTT 35.9 Seconds (25.1-36.5) 07/07/17 02:20
--- NOTE | 2017-07-10 17:39 | PN ---
DATE: 07/10/2017 SUBJECTIVE: The patient is seen lying in bed. She seems to be resting comfortably. PHYSICAL EXAMINATION: GENERAL: Elderly lady lying in bed. VITAL SIGNS: Blood pressure 158/71, heart rate 89, respiratory rate 20, temperature 97.6. HEENT: Normocephalic, atraumatic, positive pallor. NECK: Supple, no JVD. LUNGS: Bilateral equal air entry, bilateral rhonchi, no rales. CARDIAC: S1 and S2, regular rate and rhythm, no murmur, no rub. ABDOMEN: Obese, distended, soft, nontender, bowel sounds present. EXTREMITIES: Chronic stasis changes, decreased erythema. INTAKE AND OUTPUT: Not charted. LABORATORY DATA: No new labs. CURRENT MEDICATIONS: Cozaar 25, DuoNeb, heparin, insulin, Lipitor, Lopressor 25 b.i.d., Neurontin, Plavix, prednisone, Renagel, Singulair, and Tylenol. ASSESSMENT: 1. Lower extremity cellulitis. 2. Chronic obstructive pulmonary disease exacerbation. 3. Rym-cwfregw-vohbuehlj diabetes mellitus. 4. End-stage renal disease. 5. Coronary artery disease, congestive heart failure, cardiomyopathy, valvular heart disease. PLAN: 1. Stable dialysis yesterday. 2. Continue respiratory treatments. 3. Taper steroids when feasible. 4. The patient awaiting ortho evaluation because of fracture of ankle. Marlyn Snow MD
[2017-07-10] MEDS ORDERED: Enoxaparin 30 mg Syringe SC SCH (18:56)
[2017-07-10] MEDS: Latanoprost 2.5 ml Opht Soln OD SCH (21:50)
--- NOTE | 2017-07-10 22:18 | CON ---
DATE: 07/10/2017 REASON FOR CONSULTATION: Sinus tachycardia, possible preop evaluation, status post fracture of right ankle, history of coronary artery disease. BRIEF CLINICAL HISTORY: This is a 72-year-old obese female with past medical history of coronary artery disease, history of stent 5 years ago, being followed by Dr. [facility]/Dr. Motta at [facility], diabetes, on hemodialysis, history of hypertension, came in with complaint of pain in right ankle that shows possible fracture, requiring OR internal fixation. The patient denies any chest pain, shortness of breath, any palpitation. PAST MEDICAL HISTORY: Significant for type 2 diabetes, history of end-stage renal disease on dialysis, hypertension, hyperlipidemia, history of coronary artery disease, status post stent [address] [facility], possibly Dr. Motta. SOCIAL HISTORY: Denies any history of alcohol abuse. PREVIOUS CARDIAC WORKUP: As follows: History of coronary artery disease, history of stent placement, 12/2015 at [facility] by Dr. [facility] and the patient is being followed by Dr. [facility] and the patient used to see Dr. Motta. Last stent 12/2015. No workup has been done here. CURRENT MEDICATIONS: The patient is taking at home Renagel, Singulair, Neurontin, ferrous sulfate, atorvastatin 20 mg daily, acetaminophen, Plavix 75 mg daily, losartan 25 mg daily, insulin glargine as well as Lantus. ALLERGIES: MORPHINE, OXYCODONE, PENICILLIN. REVIEW OF SYSTEMS: As per HPI. PHYSICAL EXAMINATION VITAL SIGNS: As follows: Temperature afebrile, heart rate 58, blood pressure 146/56. HEENT: PERRLA. Extraocular muscles intact. NECK: Supple. No carotid bruit or thyromegaly. CHEST: Clear to auscultation. HEART: S1 and S2 regular. ABDOMEN: Soft. EXTREMITIES: Clubbing and cyanosis negative. LABORATORY DATA: Blood workup as follows: WBC 6.8, hemoglobin 9.8, hematocrit 29.3, platelet 184. Chemistry shows sodium yesterday 139, potassium , chloride 96, carbon dioxide 31, anion gap of 16, BUN 33, creatinine 4.7. Total protein 7.3, albumin 3.4, albumin-globulin ratio 0.6. IMPRESSION: Status post right ankle fracture, end-stage renal disease on dialysis, diabetes, hypertension, hyperlipidemia, obesity, history of coronary artery disease, status post stent, 12/[address] [facility], being followed by Dr. De La [facility]. No further workup in the [place] was done. Preop evaluation risk stratification for ankle surgery as well as tachycardia. RECOMMENDATION: We will get echo to assess LV function. No evidence of acute VA, no evidence of chest pain. Continue DVT prophylaxis, continue losartan, continue insulin, continue atorvastatin, continue Plavix. Hold Plavix as the patient needs to go to the OR five days before. We will get echo to assess LV function for further risk stratification. We will follow with you. We will add low-dose of beta-rossana. Thank you, Dr. Duncan, for providing us the opportunity in taking care of the patient, Debby Olguin. Since the patient is asymptomatic, no evidence of acute VA and no evidence of arrhythmia in telemetry, no evidence of CHF. The patient is [id number] risk to undergo surgery as needed because of underlying comorbidity. No absolute contraindication. Joss Bah MD
--- NOTE | 2017-07-11 02:46 | PN ---
DATE: 07/10/2017 SUBJECTIVE: Patient is seen in room 367, bed 1 earlier today. No fevers, no chills. No nausea. PHYSICAL EXAMINATION: VITAL SIGNS: Temperature is 98, blood pressure is 130/50, respiratory rate 18, heart rate is 69. HEENT: Unremarkable. NECK: Supple. LUNGS: Decreased breath sounds. HEART: Normal S1 and S2. ABDOMEN: Soft. LABORATORY EXAMINATION: Reveals a white count of 6.1, hemoglobin of 9, platelets of 184. Chemistry reveals a BUN of 33, creatinine of 4.1. Microbiology reveals the blood culture are negative. Review of orders reveals the patient to be off of antibiotics. ASSESSMENT AND PLAN: A 72-year-old female who was seen earlier today with a history of renal disease, on hemodialysis; hypertension; diabetes; coronary artery disease, status post percutaneous coronary intervention; admitted with left leg cellulitis. No deep venous thrombosis, on intermittent vancomycin and . Patient is currently off of antibiotics and afebrile, much much improved and yesterday's white count at 6.1. Isaac Nation MD
[2017-07-11] MEDS: Brimonidine 0.15% 50 DROP/5 ML BOTTLE OP SCH ×2 (05:09→14:30)
[2017-07-11 07:48] VITALS: RESP 20; O2SAT 99
[2017-07-11] MEDS: Albuterol-Ipratrop 3 mg / 0.5 (3 ml) UD IH SCH ×3 (07:55→16:27)
[2017-07-11] MEDS: Insulin Lispro (humaLOG) LOW Coverage SC SCH ×3 (08:03→16:58)
[2017-07-11 10:08] LABS: BASO # 0.02 K/mm3 (0.0-2.0); BASO % 0.2 % (0.0-3.0); EOS % 0.1 % (1.5-5.0); GRAN # 6.43 (1.4-6.5); GRAN % 76.7 % (50.0-68.0); HEMOGLOBIN 10.1 g/dL (12.0-16.0); MEAN CELL VOLUME 120.4 fl (80.0-105.0); MEAN CORPUSCULAR HEMOGLOBIN 36.9 pg (25.0-35.0); MEAN CORPUSCULAR HGB CONC 30.6 g/dl (31.0-37.0); MEAN PLATELET VOLUME 9.9 fl (7.0-11.0); MONO # 0.9 (0.1-0.6); RBC 2.74 10^6/uL (3.5-6.1); RED CELL DISTRIBUTION WIDTH 14.6 % (11.5-14.5); WHITE BLOOD COUNT 8.4 10^3/ul (4.5-11.0)
[2017-07-11 10:20] LABS: ALB/GLOB RATIO 0.9 (1.1-1.8); ALBUMIN 3.7 g/dL (3.0-4.8); ALT/SGPT 19 U/L (7-56); AST/SGOT 26 U/L (14-36); BLOOD UREA NITROGEN 46 mg/dL (7-21); CALCIUM 9.2 mg/dL (8.4-10.5); GFR AFRICAN-AMERICAN 10; GFR NON-AFRICAN AMERICAN 9; HDL CHOLESTEROL 32 mg/dL (29-60)
[2017-07-11 10:39] LABS: LDL CHOLESTEROL < 30 mg/dL (0-129)
[2017-07-11] MEDS: Insulin Detemir 100 units/ml Vial (Levemir) SC SCH (14:31)
[2017-07-11 14:55] VITALS: BP 107/43; PULSE 90; TEMP 98.2
--- NOTE | 2017-07-11 14:58 | CP.PCM.PN ---
Subjective - Date & Time of Evaluation Date of Evaluation: 07/11/17 Time of Evaluation: 10:20 - Subjective Subjective: No fevers, not in distress. Objective - Vital Signs/Intake and Output Vital Signs (last 24 hours): Temp Pulse Resp BP Pulse Ox 98.8 F 84 20 121/53 L 99 07/11/17 07:47 07/11/17 07:47 07/11/17 07:47 07/11/17 07:47 07/11/17 07:47 Intake and Output: 07/11/17 07/11/17 06:59 18:59 Intake Total 120 Output Total 0 Balance 120 - Medications Medications: Current Medications Acetaminophen (Tylenol 325mg Tab) 650 mg PO Q4H PRN PRN Reason: Fever >100.5 F Last Admin: 07/10/17 18:31 Dose: 650 mg Acetaminophen (Tylenol 325mg Tab) 650 mg PO Q4H PRN PRN Reason: Pain, Mild (1-3) Last Admin: 07/08/17 15:01 Dose: 650 mg Albuterol/Ipratropium (Duoneb 3 Mg/0.5 Mg (3 Ml) Ud) 3 ml IH QIDRESP [facility] Last Admin: 07/11/17 07:55 Dose: 3 ml Albuterol/Ipratropium (Duoneb 3 Mg/0.5 Mg (3 Ml) Ud) 3 ml IH [id number] PRN PRN Reason: Cough Atorvastatin Calcium (Lipitor) 20 mg PO DAILY [facility] Last Admin: 07/10/17 10:00 Dose: 20 mg Brimonidine Tartrate (Alphagan P 0.15% Opht) 0 drop OP Q8H [facility] Last Admin: 07/11/17 05:09 Dose: 1 drop Clopidogrel Bisulfate (Plavix) 75 mg PO DAILY [facility] Last Admin: 07/10/17 10:01 Dose: 75 mg Gabapentin (Neurontin) 100 mg PO DAILY [facility] PRN Reason: Protocol Last Admin: 07/10/17 10:00 Dose: 100 mg Heparin Sodium (Porcine) (Heparin) 2,300 units ICA MOWEFR [facility] Last Admin: 07/09/17 13:52 Dose: 2,300 units Heparin Sodium (Porcine) (Heparin) 2,400 units ICV MOWEFR [facility] Last Admin: 07/09/17 13:53 Dose: 2,400 units Insulin Detemir (Levemir) 10 unit SC AMHS [facility] Last Admin: 07/10/17 21:48 Dose: 10 unit Insulin Human Lispro (Humalog Low) 0 units SC ACHS [facility] PRN Reason: Protocol Last Admin: 07/11/17 08:03 Dose: 1 units Latanoprost (Xalatan Opht) 0 ml OD HS [facility] Last Admin: 07/10/17 21:50 Dose: 2.5 ml Losartan Potassium (Cozaar) 25 mg PO DAILY [facility] Last Admin: 07/10/17 10:01 Dose: 25 mg Metoprolol Tartrate (Lopressor) 25 mg PO BID [facility] Last Admin: 07/10/17 18:03 Dose: 25 mg Montelukast Sodium (Singulair) 10 mg PO DAILY [facility] Last Admin: 07/10/17 10:00 Dose: 10 mg Prednisone (Prednisone Tab) 10 mg PO DAILY [facility] Sevelamer HCl (Renagel) 1,600 mg PO TID [facility] Last Admin: 07/10/17 18:03 Dose: 1,600 mg - Labs Labs: 07/09/17 10:20 07/09/17 10:20 PT 13.7 SECONDS (9.4-12.5) H 07/07/17 02:20 INR 1.20 (0.93-1.08) H 07/07/17 02:20 APTT 35.9 Seconds (25.1-36.5) 07/07/17 02:20 - Constitutional Appears: Chronically Ill - Head Exam Head Exam: NORMAL INSPECTION - Respiratory Exam Respiratory Exam: Decreased Breath Sounds - Cardiovascular Exam Cardiovascular Exam: +S1, +S2 - GI/Abdominal Exam GI & Abdominal Exam: Soft. absent: Tenderness Assessment and Plan - Assessment and Plan (Free Text) Plan: Assessment S/P treatment of left leg cellulitis without evidence of DVT ESRD on HD DM HTN CAD S/P PCI chronic anemia Plan continue to monitor the patient off antibiotics since she is at risk for nosocomial infections
[2017-07-11 16:56] LABS: HEPATITIS B SURFACE AG Negative (NEGATIVE)
[2017-07-11 17:02] LABS: HEPATITIS A IGM NEGATIVE (NEGATIVE); HEPATITIS B CORE AB NEGATIVE (NEGATIVE)
[2017-07-11 18:12] LABS: HEPATITIS C ANTIBODY REACTIVE (NEGATIVE)
--- NOTE | 2017-07-11 19:09 | PN ---
DATE: 07/11/2017 LOCATION: Patient in room 367, bed 1. REASON FOR CONSULTATION AND FOLLOWUP: Sinus tachycardia, possible preop evaluation, status post fracture of the right ankle, history of coronary artery disease. HISTORY OF PRESENT ILLNESS: A 72-year-old obese female with past medical history positive for coronary artery disease, stent insertion 5 years ago, being followed by Dr. Motta at [facility], history of diabetes, renal failure on hemodialysis, history of hypertension, admitted with pain in the right ankle, found to have questionable fracture of the right ankle. She may need surgery for that, so a cardiac evaluation has been requested. Patient denies any chest pain, shortness of breath, or palpitations. At present, lying in bed flat without any cardiac symptoms. PHYSICAL EXAMINATION: VITAL SIGNS: Blood pressure 121/53, respirations 20, pulse 84, temperature 98.8. HEENT: Head is normocephalic. Eyes: Pupils normal. Conjunctivae slightly pale. NECK: JVP low. Carotids are equal. Thorax: AP diameter normal. LUNGS: No significant rales. CARDIOVASCULAR: S1 and S2. ABDOMEN: Soft, protuberant. No organomegaly. EXTREMITIES: No clubbing. No cyanosis. Patient has been wrapped up to her right ankle with the possibility of fracture. LABORATORY DATA: WBC 8.4, hemoglobin 10.1, hematocrit 33, and platelets 201. Sodium 137, potassium 5.1. BUN 46, creatinine 4.9. Glucose 273. Calcium 9.2, phosphorus 3.8, magnesium 2.3. AST, ALT normal. TSH 1.9. Echo was done on 07/10/2017, showed normal size LV, left ventricular systolic function low normal, ejection fraction 50% to 55%, moderate mitral regurgitation, moderate to severe tricuspid regurgitation, RVSP recorded at 42 mmHg, but is underestimated because of complication of the tricuspid valve, flattened septum consistent with right ventricular volume and pressure overload. Right ventricle is severely dilated and is mildly hypertrophic and systolic function of RV moderate to severely reduced. DIAGNOSES: Possible right ankle fracture, end-stage renal failure on dialysis, diabetes, hypertension, hyperlipidemia, obesity, history of coronary artery disease, stent insertion in 12/2015, pulmonary hypertension, right heart systolic dysfunction. PLAN: Clinically, patient's cardiac status is stable. Patient had been on Plavix and aspirin, and if patient needs surgery, patient may have to stop Plavix for 5 days. Otherwise, patient can go for surgery as moderate risk. Patient is on Plavix 75 mg daily, Neurontin 100 mg daily, prednisone 10 mg daily, Renagel 1600 mg p.o. t.i.d., Singulair 10 mg p.o. daily. Patient has been started on metoprolol 25 mg b.i.d., Lipitor 20 mg daily, insulin as ordered, DuoNeb hand nebulizer therapy, losartan 25 daily. We will follow. Joss Millan MD
--- NOTE | 2017-07-11 22:22 | PN ---
DATE: 07/11/2017 SUBJECTIVE: The patient is seen in the dialysis unit. She is awake, she is alert. She complains of cough. She complains of wheezing. PHYSICAL EXAMINATION: GENERAL: Obese elderly lady lying in bed in the dialysis unit. VITAL SIGNS: Blood pressure 107/43, heart rate 90, respiratory rate 20, temperature 98.2. HEENT: Normocephalic, atraumatic, positive pallor. NECK: Supple, no JVD. LUNGS: Bilateral rhonchi, prolonged expiration, no rales. CARDIAC: S1 and S2, regular rate and rhythm, no murmur, no rub. ABDOMEN: Obese, distended, soft, nontender, bowel sounds present. EXTREMITIES: Decreased erythema of the lower extremities. INTAKE AND OUTPUT: Not charted. LABORATORY DATA: WBC 8.5, hemoglobin 10, hematocrit 33, platelets 201. Sodium 137, potassium 5.1, chloride 94, CO2 of 30, BUN 46, creatinine 4.9, glucose 273, calcium 8.3, phosphorus 3.8, magnesium 2.3, albumin 3.7. Blood cultures, no growth. Echocardiogram: Left ventricular size is normal. Normal left ventricular thickness, normal ejection fraction, [id number] tricuspid regurgitation, dilated IVC. CURRENT MEDICATIONS: Losartan, DuoNeb, heparin, insulin, Levemir, Lipitor, Neurontin, Plavix, prednisone, Renagel, Singulair, and Tylenol. ASSESSMENT: 1. Lower extremity cellulitis, resolved. 2. Left ankle fracture, conservative management. 3. Chronic obstructive pulmonary disease exacerbation. 4. [id number] diabetes mellitus. 5. Hypertension. 6. End-stage renal disease. 7. Coronary artery disease. PLAN: 1. Stable dialysis. 2. Continue respiratory treatments. 3. Continue phosphate binders. 4. Monitor fingersticks and continue insulin. 5. Discharge planning. Marlyn Snow MD
--- NOTE | 2017-07-11 23:54 | CON ---
DATE: 07/11/2017 INPATIENT CONSULT REASON FOR CONSULT: Right ankle trimalleolar fracture. HISTORY OF PRESENT ILLNESS: This is a 72-year-old female who was being treated for right lower extremity cellulitis, who on MRI was diagnosed with the right trimalleolar fracture. Patient has a past medical history significant for diabetes with end-stage renal disease, on dialysis. Patient denies any specific history of trauma, but had been ambulating on the right lower extremity without any significant pain. PHYSICAL EXAMINATION: GENERAL: This is an elderly female, in no apparent distress. She is awake, alert, and oriented. EXTREMITIES: Evaluation of the right lower extremity shows some mild swelling about the ankle. She does have some hypotrophic skin changes consistent with chronic vascular disease. She does not have a palpable DP or PT pulse, but has a known history of peripheral vascular disease and is currently being followed by Dr. Noel. She is able to actively move the ankle without significant pain. She has mild tenderness to palpation at the tip of the medial malleolus. No significant lateral tenderness to palpation. She is not tender over Achilles. She is able to move her toes. Her calf is otherwise soft and nontender. X-ray shows it looks like a small avulsion type fracture of the medial malleolus and possible small crack in the lateral malleolus. MRI is consistent with some edema in the area of the posterior consistent with a fracture as well as some fracture lines seen both the lateral and medial malleoli. No significant displacement is appreciated. IMPRESSION: Right trimalleolar fracture. PLAN: At this point, patient has had significant risk for developing a Charcot joint. Recommendations would be for nonweightbearing and splinting for now. The plan will be for casting of the right lower extremity and to follow her with serial x-rays. I will discuss this with Dr. Ziegler who is currently managing her cellulitis. Ricki Brush MD
--- NOTE | 2017-07-12 13:11 | PN ---
DATE: 07/10/2017 SUBJECTIVE: The patient is comfortable. No distress. She complained of pain in her right leg and being evaluated by Orthopedic, Dr. Ricki Brush. The patient has no new complaints. Her sugar seems stable. Blood pressure stable. She is getting hemodialysis on a regular basis. Seen by ID consult. PHYSICAL EXAMINATION: As follows, VITAL SIGNS: On 07/10/2017, temperature 97.6, heart rate 71, blood pressure 144/52, respirations 20, saturations 95% on 2 L. HEAD AND NECK: Normal. No JVD. No thyromegaly. CHEST: Clear. Good air entry. CARDIAC: First sound and second sound normal. Systolic murmur in the mitral area. ABDOMEN: Obese, nontender. EXTREMITIES: There is posterior cast and there is . There is no any new findings. NEUROLOGIC: The patient clinically has blindness, cannot see and also has difficulty ambulation. IMPERSSION AND PLAN: 1. Acute right ankle trimalleolar fractures. No surgical intervention. Only posterior cast and nonweightbearing, physical therapy will be recommended. 2. Insulin-dependent diabetes, stable. Continue insulin regimen, Lantus and insulin before meals. 3. Chronic renal failure, on hemodialysis. 4. Hypertension, hypercholesterolemia. We will continue current therapy. Continue gabapentin, Tylenol p.r.n. Continue Alphagan. Continue the eye drops for glaucoma in both eyes. Follow up clinically. Huey Duncan MD
== END 2017-07-11 17:35 | DRG 602 ==
LOC: ED 00:56 → ERH 04:28 → 3RNO 06:01
PROVIDERS: ADMIT Internal Medicine; ATTEND Internal Medicine
PROC: 5A1D70Z Performance of Urinary Filtration, Intermittent, Less than 6 Hours Per Day (ICD-10-PCS; principal; 2017-07-07)
PROC: 5A1D70Z Performance of Urinary Filtration, Intermittent, Less than 6 Hours Per Day (ICD-10-PCS; 2017-07-09)
PROC: 5A1D70Z Performance of Urinary Filtration, Intermittent, Less than 6 Hours Per Day (ICD-10-PCS; 2017-07-11)
DX: L03.115 Cellulitis of right lower limb (principal); N18.6 End stage renal disease; I13.2 Hypertensive heart and chronic kidney disease with heart failure and with stage 5 chronic kidney disease, or end stage renal disease; I50.20 Unspecified systolic (congestive) heart failure; J44.1 Chronic obstructive pulmonary disease with (acute) exacerbation; I42.9 Cardiomyopathy, unspecified; N25.81 Secondary hyperparathyroidism of renal origin; L03.116 Cellulitis of left lower limb; E11.22 Type 2 diabetes mellitus with diabetic chronic kidney disease; E11.319 Type 2 diabetes mellitus with unspecified diabetic retinopathy without macular edema; E11.51 Type 2 diabetes mellitus with diabetic peripheral angiopathy without gangrene; D63.1 Anemia in chronic kidney disease; E78.00 Pure hypercholesterolemia, unspecified; E78.5 Hyperlipidemia, unspecified; H54.8 Legal blindness, as defined in USA; E11.39 Type 2 diabetes mellitus with other diabetic ophthalmic complication; H40.9 Unspecified glaucoma; E11.649 Type 2 diabetes mellitus with hypoglycemia without coma; I25.10 Atherosclerotic heart disease of native coronary artery without angina pectoris; I27.20 Pulmonary hypertension, unspecified; S82.851A Displaced trimalleolar fracture of right lower leg, initial encounter for closed fracture; W19.XXXA Unspecified fall, initial encounter; Z99.2 Dependence on renal dialysis; Z88.5 Allergy status to narcotic agent; Z88.0 Allergy status to penicillin; Z79.02 Long term (current) use of antithrombotics/antiplatelets; Z79.4 Long term (current) use of insulin; Z95.5 Presence of coronary angioplasty implant and graft; Z86.73 Personal history of transient ischemic attack (TIA), and cerebral infarction without residual deficits

== ENCOUNTER 2017-12-08 09:05 | Inpatient (IN) | payer MEDICARE, OTHER ==
[2017-12-08 09:11] VITALS: BMI 32.3
--- NOTE | 2017-12-08 10:31 | ED PDOC ---
Arrival/HPI - General Chief Complaint: Trauma Time Seen by Provider: 12/08/17 09:20 Historian: Patient - History of Present Illness Narrative History of Present Illness (Text): 12/08/17 11:06 72yo female with pmhx of Diabetes, hypertension, ESRD on hemodialysis MWF, CAD with coronary stent placement bib the EMS for evaluation s/p assisted fall. Per the EMS, the patient almost fell, while the her aide is getting her ready for d ialysis. The son who later came and was by the bedside states patient was admitted in [facility] for Asthma exacerbation and discharged on Friday. States patient has been lethargic and weak since she came back from [facility]. States it;s been difficult for her to stay awake or ambulate. Notes that she usually ambulate by her self, but has not been able to ambulate by herself since she came back. states she slides out of chair when sitting and she slided again today while the aide was holding her. He otherwise denies any other complaint. Patient is not answering questions. Sleepy, but abusable. Past Medical History - Provider Review Nursing Documentation Reviewed: Yes - Infectious Disease Hx of Infectious Diseases: None - Tetanus Immunization Tetanus Immunization: Unknown - Cardiac Hx Cardiac Disorders: Yes Hx Hypertension: Yes Other/Comment: life vest 09/09 - Pulmonary Hx Chronic Obstructive Pulmonary Disease (COPD): Yes - Neurological HX Cerebrovascular Accident: Yes (right sided) - HEENT Hx Blind: Yes (legally blind) Hx Cataracts: Yes Hx Glaucoma: Yes - Renal Hx Renal Failure: Yes (on dialysis) Other/Comment: fri/fri/fri at [facility] - Endocrine/Metabolic Hx Diabetes Mellitus Type 2: Yes - Hematological/Oncological Hx Blood Disorders: Yes Hx Blood Transfusions: Yes Hx Blood Transfusion Reaction: No - Integumentary Hx Dermatological Disorder: Yes - Musculoskeletal/Rheumatological Hx Arthritis: Yes - Gastrointestinal Hx Gastrointestinal Disorders: No - Genitourinary/Gynecological Hx Genitourinary Disorders: No - Psychiatric Hx Psychophysiologic Disorder: Yes Hx Depression: Yes Hx Emotional Abuse: No Hx Physical Abuse: No Hx Substance Use: No - Past Surgical History Past Surgical History: No Previous - Surgical History Hx Cholecystectomy: Yes Hx Hysterectomy: Yes Other/Comment: lav graft removal graft, dialysis access rt upper chest wall - Anesthesia Hx Anesthesia Reactions: No Hx Malignant Hyperthermia: No - Suicidal Assessment Feels Threatened In Home Enviroment: No Family/Social History - Physician Review Nursing Documentation Reviewed: Yes Family/Social History: Unknown Family HX Smoking Status: Never Smoked Hx Alcohol Use: No Hx Substance Use: No Hx Substance Use Treatment: No Allergies/Home Meds Allergies/Adverse Reactions: Allergies FISH Allergy (Verified 07/11/17 14:51) URTICARIA morphine Allergy (Verified 07/07/17 01:14) ANAPHYLAXIS oxycodone Allergy (Verified 07/07/17 01:14) ANAPHYLAXIS Penicillins Allergy (Verified 07/07/17 01:14) ANAPHYLAXIS steroids Allergy (Uncoded 07/07/17 01:14) ANAPHYLAXIS Home Medications: Home Meds Medication Instructions Recorded Confirmed RX: Insulin Aspar/Insulin N 70/30 43 units SC PRN PRN 06/15/12 11/12/16 [Novolog Mix 70/30-U/ml 3Ml] RX: Insulin Lispro [Humalog] 1 units SC PRN PRN 09/16/15 11/12/16 RX: Brimonidine 0.2% [Alphagan 1 drop OD Q8 11/19/15 07/07/17 0.2% Opht] Ferrous Sulfate [Feosol] 325 mg PO DAILY 07/07/17 07/07/17 Sevelamer Carbonate [Renvela] 1,600 mg PO TID 07/07/17 07/07/17 Review of Systems - Physician Review All systems were reviewed & negative as marked: Yes - Review of Systems Constitutional: Fatigue Eyes: Normal ENT: Normal Respiratory: Normal Cardiovascular: Normal Gastrointestinal: Normal Genitourinary Female: Normal Musculoskeletal: Normal Skin: Normal Neurological: Other (AMS) Endocrine: Normal Hemo/Lymphatic: Normal Psychiatric: Normal Physical Exam Vital Signs Reviewed: Yes Vital Signs Temp Pulse Resp BP Pulse Ox 12/08/17 09:06 97.6 F 77 18 124/80 100 Temperature: Afebrile Blood Pressure: Normal Pulse: Regular Respiratory Rate: Normal Appearance: Positive for: Well-Appearing, Non-Toxic, Comfortable Pain Distress: None Mental Status: Positive for: Lethargic - Systems Exam Head: Present: Atraumatic, Normocephalic Pupils: Present: PERRL Extroacular Muscles: Present: EOMI Conjunctiva: Present: Normal Mouth: Present: Moist Mucous Membranes Neck: Present: Normal Range of Motion Respiratory/Chest: Present: Clear to Auscultation, Good Air Exchange. No: Respiratory Distress, Accessory Muscle Use Cardiovascular: Present: Regular Rate and Rhythm, Normal S1, S2. No: Murmurs Abdomen: No: Tenderness, Distention, Peritoneal Signs Back: Present: Normal Inspection Upper Extremity: Present: Normal Inspection. No: Cyanosis, Edema Lower Extremity: Present: Normal Inspection. No: Edema Neurological: Present: GCS=15, CN II-XII Intact, Speech Normal Skin: Present: Warm, Dry, Normal Color. No: Rashes Psychiatric: Present: Alert, Oriented x 3, Normal Insight, Normal Concentration Medical Decision Making ED Course and Treatment: 12/08/17 12:04 72yo female with multiple co morbidities in ED for AMS She was lethargic on arrival, but arousable. Labs EKG Blood culture VBG Head CT CXR Will reassess PT is a dialysis pt and is due for dialysis today. Case was DW Dr. House while she was in ED she saw pt by the bedside and accepted pt for admission. She requested Drs. Millan, Shellie, Gwendolyn counseled. Case was also dW dr. Snow and she saw pt in ED and requested Proamatine which was ordered CXR IMPRESSION: Right lower lobe infiltrate inseparable from right pleural effusion. Pt also became hypotensive while in ED EKG Atrial fib with incomplete RBBB @ 75bpm Levaquin was ordered for PNE Case was DW the imaging scheduler, he saw pt in ED and accepted pt to ED. PT had metabolic, more than respiratory acidosis likely secondary to her ESRD and was placed on bipap The imaging scheduler requested one liter of fluid and vanco which was ordered. PT is not a candidate for dialysis secondary to her hypotension. Dr. Snow was aware of her hypotension. - Critical Care Critical Care Minutes: 45 minutes - RAD Interpretation Radiology Orders: 12/08/17 09:48 CHEST PORTABLE [RAD] Stat Disposition/Present on Arrival - Present on Arrival Any Indicators Present on Arrival: No History of DVT/PE: Yes History of Uncontrolled Diabetes: Yes Urinary Catheter: No History of Decub. Ulcer: No History Surgical Site Infection Following: None - Disposition Have Diagnosis and Disposition been Completed?: Yes Diagnosis: Weakness, Altered mental status, Pneumonia, Pleural effusion, Hypotension, ESRD (end stage renal disease) Disposition: HOSPITALIZED Disposition Time: 10:15 Patient Plan: Admission Patient Problems: Current Active Problems Problem Status Onset Altered mental status Acute Pleural effusion Acute Pneumonia Acute Weakness Acute Condition: SERIOUS
[2017-12-08 11:03] LABS: BASO # 0.01 K/mm3 (0.0-2.0); BASO % 0.1 % (0.0-3.0); EOS # 0.2 (0.0-0.7); EOS % 2.1 % (1.5-5.0); GRAN # 5.46 (1.4-6.5); HEMOGLOBIN 11.2 g/dL (12.0-16.0); LYMPH # 1.2 (1.2-3.4); LYMPH % 15.8 % (22.0-35.0); MEAN CELL VOLUME 116.5 fl (80.0-105.0); MEAN CORPUSCULAR HEMOGLOBIN 36.1 pg (25.0-35.0); MEAN PLATELET VOLUME 11.3 fl (7.0-11.0); MONO # 0.9 (0.1-0.6); RBC 3.1 10^6/uL (3.5-6.1); RED CELL DISTRIBUTION WIDTH 18.7 % (11.5-14.5); WHITE BLOOD COUNT 7.7 10^3/ul (4.5-11.0)
[2017-12-08 11:56] LABS: ALB/GLOB RATIO 0.8 (1.1-1.8); ALBUMIN 3.6 g/dL (3.0-4.8); CALCIUM 8.5 mg/dL (8.4-10.5)
[2017-12-08 12:01] LABS: ACETAMINOPHEN < 10.0 ug/ml (10.0-20.0); SALICYLATE < 1 mg/dL (2.0-20.0)
--- NOTE | 2017-12-08 12:01 | RAD ---
Date of service: 12/08/2017 HISTORY: admission COMPARISON: 07/07/2017 single-view chest FINDINGS: LUNGS: Consolidative changes right lower lobe. PLEURA: Right pleural effusion inseparable from right lower lobe infiltrate. CARDIOVASCULAR: Atherosclerotic calcifications identified primarily aortic arch. Cardiomegaly. Position/ configuration of pacemaker Satisfactory. Venous access catheter in stable, satisfactory position. OSSEOUS STRUCTURES: No significant abnormalities. VISUALIZED UPPER ABDOMEN: Normal. OTHER FINDINGS: None. IMPRESSION: Right lower lobe infiltrate inseparable from right pleural effusion.
[2017-12-08] MEDS ORDERED: levoFLOXacin 500 mg in D5W 500 MG/100 ML BAG IVPB STA (12:03)
[2017-12-08 12:06] LABS: TROPONIN I 0.08 ng/mL
[2017-12-08] MEDS ORDERED: Albuterol-Ipratrop 3 mg / 0.5 (3 ml) UD IH STA (12:30)
[2017-12-08] MEDS ORDERED: Azithromycin 500MG/NS 250ml 500 MG/250 ML BAG IVPB STA (13:21)
[2017-12-08 14:08] LABS: ARTERIAL BLOOD GAS HCO3 28.9 mmol/L (21-28); ARTERIAL BLOOD GAS HEMOGLOBIN 12.1 g/dL (11.7-17.4); ARTERIAL BLOOD GAS O2 CAPACITY 16.6 mL/dl (16-24); ARTERIAL BLOOD GAS O2 CONTENT 15.6 ML/dl (15-23); ARTERIAL BLOOD GAS PH 7.14 (7.35-7.45); ARTERIAL BLOOD GAS TCO2 31.5 mmol.L (22-28)
[2017-12-08 14:09] LABS: ARTERIAL BLOOD GAS PCO2 85 mm/Hg (35-45)
[2017-12-08] MEDS ORDERED: Sodium Chloride 0.9% 1,000 ML IV STA (14:23)
[2017-12-08] MEDS ORDERED: Vancomycin 1gm in NS 250ml 1 GM/250 ML BAG IVPB STA ×2 (14:25→19:08)
--- NOTE | 2017-12-08 14:25 | CARD ---
APPROVED REPORT Date of service: 12/08/2017 EKG Measurement Heart [id number] <Conclusion> Atrial fibrillation Incomplete right bundle branch block Possible Inferior infarct, age undetermined Possible ASMI, age unknown NSSTW changes RAD No change
--- NOTE | 2017-12-08 14:31 | CP.PCM.CON ---
<Ryder Alamo - Last Filed: 12/08/17 16:52> History of Present Illness - History of Present Illness History of Present Illness: ICU CONSULT NOTE FOR DR. COLE Alamo PGY-1 CC: Back pain after sitting down HPI: 72 y/o french speaking F with PMHx of ESRD on HD, CHF last known EF 50- 55%, ischemic cardiomyopathy, DM, HTN, CAD presented to [facility] with complaints of back pain after sitting down. History is limited as pt is mostly nonverbal. Pt recently admitted to [facility] 12/02/17 for hypotension, managed with fluids. She is awake, however she is not answering questions. Review of Systems - Review of Systems Review of Systems: limited as pt is mostly nonverbal Past Patient History - Infectious Disease Hx of Infectious Diseases: None - Tetanus Immunizations Tetanus Immunization: Unknown - Past Social History Smoking Status: Never Smoked - CARDIAC Hx Cardiac Disorders: Yes Hx Hypertension: Yes Other/Comment: life vest 09/09 - PULMONARY Hx Chronic Obstructive Pulmonary Disease (COPD): Yes - NEUROLOGICAL HX Cerebrovascular Accident: Yes (right sided) - HEENT Hx Blind: Yes (legally blind) Hx Cataracts: Yes Hx Glaucoma: Yes - RENAL Hx Renal Failure: Yes (on dialysis) Other/Comment: fri/fri/fri at [facility] - ENDOCRINE/METABOLIC Hx Diabetes Mellitus Type 2: Yes - HEMATOLOGICAL/ONCOLOGICAL Hx Blood Disorders: Yes Hx Blood Transfusions: Yes Hx Blood Transfusion Reaction: No - INTEGUMENTARY Hx Dermatological Problems: Yes - MUSCULOSKELETAL/RHEUMATOLOGICAL Hx Arthritis: Yes - GASTROINTESTINAL Hx Gastrointestinal Disorders: No - GENITOURINARY/GYNECOLOGICAL Hx Genitourinary Disorders: No - PSYCHIATRIC Hx Psychophysiologic Disorder: Yes Hx Depression: Yes Hx Emotional Abuse: No Hx Physical Abuse: No Hx Substance Use: No - SURGICAL HISTORY Hx Cholecystectomy: Yes Hx Hysterectomy: Yes Other/Comment: lav graft removal graft, dialysis access rt upper chest wall - ANESTHESIA Hx Anesthesia Reactions: No Hx Malignant Hyperthermia: No Meds Allergies/Adverse Reactions: Allergies Allergy/AdvReac Type Severity Reaction Status Date / Time FISH Allergy URTICARIA Verified 07/11/17 14:51 morphine Allergy ANAPHYLAXIS Verified 07/07/17 01:14 oxycodone Allergy ANAPHYLAXIS Verified 07/07/17 01:14 Penicillins Allergy ANAPHYLAXIS Verified 07/07/17 01:14 steroids Allergy ANAPHYLAXIS Uncoded 07/07/17 01:14 - Medications Medications: Current Medications Sodium Chloride (Sodium Chloride 0.9%) 1,000 mls @ 999 mls/hr IV .Q1H1M STA Stop: 12/08/17 15:23 Vancomycin HCl (Vancomycin 1gm) 1 gm in 250 mls @ 167 mls/hr IVPB STAT STA; Pro tocol Stop: 12/08/17 15:54 Metoprolol Tartrate (Lopressor) 25 mg PO BID [facility] Physical Exam - Constitutional Appears: No Acute Distress - Head Exam Head Exam: NORMAL INSPECTION, NORMOCEPHALIC - Eye Exam Eye Exam: EOMI, Normal appearance - ENT Exam ENT Exam: Mucous Membranes Moist, Normal Exam - Neck Exam Neck exam: Positive for: Normal Inspection - Respiratory Exam Respiratory Exam: Wheezes, Respiratory Distress - Cardiovascular Exam Cardiovascular Exam: REGULAR RHYTHM, +S1, +S2 - GI/Abdominal Exam GI & Abdominal Exam: Distended, Soft. absent: Tenderness - Extremities Exam Extremities exam: Positive for: normal inspection. Negative for: calf tenderness - Back Exam Back exam: NORMAL INSPECTION - Skin Skin Exam: Dry, Intact, Warm Results - Vital Signs Recent Vital Signs: Last Vital Signs Temp 97.6 F 12/08/17 09:06 Pulse 79 12/08/17 14:02 Resp 20 12/08/17 14:02 BP 80/44 L 12/08/17 14:02 Pulse Ox 99 12/08/17 14:02 - Labs Result Diagrams: 12/08/17 10:50 12/08/17 11:30 Labs: Laboratory Results - last 24 hr 12/08/17 12/08/17 12/08/17 09:36 10:50 10:50 WBC 7.7 RBC 3.10 L Hgb 11.2 L Hct 36.1 MCV 116.5 H D MCH 36.1 H MCHC 31.0 RDW 18.7 H Plt Count 163 MPV 11.3 H Gran % 71.0 H Lymph % (Auto) 15.8 L [place] % (Auto) 11.0 H Eos % (Auto) 2.1 Baso % (Auto) 0.1 Gran # 5.46 Lymph # (Auto) 1.2 [place] # (Auto) 0.9 H Eos # (Auto) 0.2 Baso # (Auto) 0.01 pCO2 pO2 HCO3 ABG pH ABG Total CO2 ABG O2 Saturation ABG O2 Content ABG Base Excess ABG Hemoglobin ABG Carboxyhemoglobin POC ABG HHb (Measured) ABG Methemoglobin ABG O2 Capacity Hgb O2 Saturation FiO2 Sodium Potassium Chloride Carbon Dioxide Anion Gap BUN Creatinine Est GFR ( Amer) Est GFR (Non-Af Amer) POC Glucose (mg/dL) 203 H Random Glucose Calcium Phosphorus Magnesium Total Bilirubin AST ALT Alkaline Phosphatase Lactate Dehydrogenase Total Creatine Kinase Troponin I Total Protein Albumin Globulin Albumin/Globulin Ratio TSH 3rd Generation 10.80 H Salicylates Acetaminophen Alcohol, Quantitative < 10 12/08/17 12/08/17 12/08/17 10:50 11:30 13:13 WBC RBC Hgb Hct MCV MCH MCHC RDW Plt Count MPV Gran % Lymph % (Auto) [place] % (Auto) Eos % (Auto) Baso % (Auto) Gran # Lymph # (Auto) [place] # (Auto) Eos # (Auto) Baso # (Auto) pCO2 85 H* pO2 73.0 L HCO3 28.9 H ABG pH 7.14 L* ABG Total CO2 31.5 H ABG O2 Saturation 94.0 L ABG O2 Content 15.6 ABG Base Excess -2.0 ABG Hemoglobin 12.1 ABG Carboxyhemoglobin 2.5 H POC ABG HHb (Measured) 5.8 H ABG Methemoglobin 0.4 ABG O2 Capacity 16.6 Hgb O2 Saturation 91.4 L FiO2 32.0 Sodium 136 Potassium 4.4 Chloride 95 L Carbon Dioxide 30 Anion Gap 16 BUN 28 H Creatinine 5.0 H Est GFR ( Amer) 10 Est GFR (Non-Af Amer) 8 POC Glucose (mg/dL) Random Glucose 179 H Calcium 8.5 Phosphorus 7.3 H Magnesium 2.1 Total Bilirubin 0.9 AST 34 ALT 25 Alkaline Phosphatase 237 H Lactate Dehydrogenase 526 Total Creatine Kinase 115 Troponin I 0.08 D Total Protein 8.2 Albumin 3.6 Globulin 4.6 Albumin/Globulin Ratio 0.8 L TSH 3rd Generation Salicylates < 1 L Acetaminophen < 10.0 L Alcohol, Quantitative Assessment & Plan - Assessment and Plan (Free Text) Assessment: 72 y/o F with PMHx of ESRD on HD presented to [facility] with complaints of back pain after she had sat down. History is limited as patient is non-verbal. ABG done in ER showed hypercapnic respiratory acidid. BiPAP was subsequently started in ED. Pt was also seen to have pneumonia on xray. Empiric antibiotics were started. Pt was hypotensive in ED with BPs in the upper 60s/40. She was started on 1L bolus of fluids. Pt admitted to ICU for hypotension Plan: Neuro: Awake, alert. Pt not answering questions Neuro consult: Dr. Hensley MRI GCS 15 CN grossly intact Cardio: BP: Hypotensive, 68/42 in ED. Improved to 90s/70s after 1L bolus. HR 70-80s Maintain MAP >65 CAD: Hold antihypertensives/b-blockers Continue to monitor May consider vasopressors Resp: Hypercapnic respiratory acidosis: 7.14/85/73/29 Repeat ABG w/shock panel Currently on BiPAP: 12/5/40% Chest xray (12/08/17): "RLL infiltrate inseparable from R pleural effusion" Aztreonam/Vancomycin x 1 dose ID Consult: Dr. Gonzales (Known to pt) Duoneb treatments q2H prn Solu-medrol 40mg IVP q12h Maintain 02 sat >90% HOB 30 degrees GI: Distended Continue with protonix /Renal: ESRD on HD BUN/Cr below baseline Pt had missed last HD session Consult Nephrology: Dr. Snow Replace lytes Maintain euvolemia Continue to monitor Endocrine: Hx of DM Maintain euglycemia Fingersticks q6h Heme: Macrocytic anemia at baseline platelets stable continue to monitor DVT/GI PPx: Protonix <Santos Garrett - Last Filed: 12/08/17 16:57> Meds - Medications Medications: Current Medications Albuterol/Ipratropium (Duoneb 3 Mg/0.5 Mg (3 Ml) Ud) 3 ml IH Q2H PRN PRN Reason: Shortness of Breath Methylprednisolone (Solu-Medrol) 40 mg IVP Q12 [facility] Metoprolol Tartrate (Lopressor) 25 mg PO BID [facility] Midodrine (Proamatine) 5 mg PO TID [facility] Pantoprazole Sodium (Protonix Inj) 40 mg IVP DAILY [facility] Results - Vital Signs Recent Vital Signs: Last Vital Signs Temp 97.6 F 12/08/17 09:06 Pulse 78 12/08/17 14:58 Resp 20 12/08/17 14:58 BP 99/76 L 12/08/17 14:58 Pulse Ox 100 12/08/17 14:58 - Labs Result Diagrams: 12/08/17 10:50 12/08/17 11:30 Labs: Laboratory Results - last 24 hr 12/08/17 12/08/17 12/08/17 09:36 10:50 10:50 WBC 7.7 RBC 3.10 L Hgb 11.2 L Hct 36.1 MCV 116.5 H D MCH 36.1 H MCHC 31.0 RDW 18.7 H Plt Count 163 MPV 11.3 H Gran % 71.0 H Lymph % (Auto) 15.8 L [place] % (Auto) 11.0 H Eos % (Auto) 2.1 Baso % (Auto) 0.1 Gran # 5.46 Lymph # (Auto) 1.2 [place] # (Auto) 0.9 H Eos # (Auto) 0.2 Baso # (Auto) 0.01 pCO2 pO2 HCO3 ABG pH ABG Total CO2 ABG O2 Saturation ABG O2 Content ABG Base Excess ABG Hemoglobin ABG Carboxyhemoglobin POC ABG HHb (Measured) ABG Methemoglobin ABG O2 Capacity Hgb O2 Saturation FiO2 Sodium Potassium Chloride Carbon Dioxide Anion Gap BUN Creatinine Est GFR ( Amer) Est GFR (Non-Af Amer) POC Glucose (mg/dL) 203 H Random Glucose Calcium Phosphorus Magnesium Total Bilirubin AST ALT Alkaline Phosphatase Lactate Dehydrogenase Total Creatine Kinase Troponin I Total Protein Albumin Globulin Albumin/Globulin Ratio TSH 3rd Generation 10.80 H Salicylates Acetaminophen Alcohol, Quantitative < 10 12/08/17 12/08/17 12/08/17 10:50 11:30 13:13 WBC RBC Hgb Hct MCV MCH MCHC RDW Plt Count MPV Gran % Lymph % (Auto) [place] % (Auto) Eos % (Auto) Baso % (Auto) Gran # Lymph # (Auto) [place] # (Auto) Eos # (Auto) Baso # (Auto) pCO2 85 H* pO2 73.0 L HCO3 28.9 H ABG pH 7.14 L* ABG Total CO2 31.5 H ABG O2 Saturation 94.0 L ABG O2 Content 15.6 ABG Base Excess -2.0 ABG Hemoglobin 12.1 ABG Carboxyhemoglobin 2.5 H POC ABG HHb (Measured) 5.8 H ABG Methemoglobin 0.4 ABG O2 Capacity 16.6 Hgb O2 Saturation 91.4 L FiO2 32.0 Sodium 136 Potassium 4.4 Chloride 95 L Carbon Dioxide 30 Anion Gap 16 BUN 28 H Creatinine 5.0 H Est GFR ( Amer) 10 Est GFR (Non-Af Amer) 8 POC Glucose (mg/dL) Random Glucose 179 H Calcium 8.5 Phosphorus 7.3 H Magnesium 2.1 Total Bilirubin 0.9 AST 34 ALT 25 Alkaline Phosphatase 237 H Lactate Dehydrogenase 526 Total Creatine Kinase 115 Troponin I 0.08 D Total Protein 8.2 Albumin 3.6 Globulin 4.6 Albumin/Globulin Ratio 0.8 L TSH 3rd Generation Salicylates < 1 L Acetaminophen < 10.0 L Alcohol, Quantitative 12/08/17 15:26 WBC RBC Hgb Hct MCV MCH MCHC RDW Plt Count MPV Gran % Lymph % (Auto) [place] % (Auto) Eos % (Auto) Baso % (Auto) Gran # Lymph # (Auto) [place] # (Auto) Eos # (Auto) Baso # (Auto) pCO2 pO2 HCO3 ABG pH ABG Total CO2 ABG O2 Saturation ABG O2 Content ABG Base Excess ABG Hemoglobin ABG Carboxyhemoglobin POC ABG HHb (Measured) ABG Methemoglobin ABG O2 Capacity Hgb O2 Saturation FiO2 Sodium Potassium Chloride Carbon Dioxide Anion Gap BUN Creatinine Est GFR ( Amer) Est GFR (Non-Af Amer) POC Glucose (mg/dL) 127 H Random Glucose Calcium Phosphorus Magnesium Total Bilirubin AST ALT Alkaline Phosphatase Lactate Dehydrogenase Total Creatine Kinase Troponin I Total Protein Albumin Globulin Albumin/Globulin Ratio TSH 3rd Generation Salicylates Acetaminophen Alcohol, Quantitative Assessment & Plan - Assessment and Plan (Free Text) Plan: Patient seen and examined with resident, agree with note with following additions/exceptions: Patient is 72yo female with PMHx of ESRD on HD, MWF, last HD Friday, COPD, dementia, presents from home s/p fall. Pt was noted to be altered and hypotensive in the ER, given 1L NS bolus, with improvement in SBP. Labs, imaging, chart reviewed. ABG with resp acidosis, hypercapnia, placed on BIPAP Current BP 120s Severe Sepsis PNA ESRD on HD Hypercapnia Respiratory failure Recommend: - cont with BIPAP as tolerated, 12/5/50%, repeat ABG with lactate, duonebs PRN, IS, Solumedrol 40mg IV q12h - broad spectrum abx, as per ID - panculture, UCx, BCx, Procal, check urine Lg/Strep - Hold BP meds, hold BB - IVF - repeat ECHO - HD as per renal - FS control - GI ppx - DVT ppx - Monitor in MICU Critical care time 35 minutes
[2017-12-08] MEDS ORDERED: Aztreonam 1 Gm in NS 100mL 100 ML IVPB STA (14:40)
--- NOTE | 2017-12-08 18:58 | CP.PCM.CON ---
History of Present Illness - History of Present Illness History of Present Illness: Infectious Disease Consultation: December 08, 2017 72 yo Venezuelan speaking female presenting to [facility] [place] [place] with back pain on sitting down. Patient was found to be hypotensive in ER. The patient has an extensive medical history that includes ESRD on HD, CAD, CHF with EF of 35%, occluded heart vessels, DM, HTN, and ischemic cardiomyopathy. The patient is unable to provide any additional information at this time. Daughter is at bedside. PMHx: ESRD on HD, CAD, CHF with EF of 35%, occluded heart vessels, DM, HTN, and ischemic cardiomyopathy PSHx: stent placements Allergies: Fish, morphine, oxycodone, PCN, steroids? With PCN, rash and hives develop Social Hx: No tobacco, EtOH, or illict drug use. lives with family and has homemaker. Active Medications Albuterol/Ipratropium (Duoneb 3 Mg/0.5 Mg (3 Ml) Ud) 3 ml IH Q2H PRN PRN Reason: Shortness of Breath Heparin Sodium (Porcine) (Heparin) 5,000 units SC Q12 [facility]; Protocol Methylprednisolone (Solu-Medrol) 40 mg IVP Q12 [facility] Metoprolol Tartrate (Lopressor) 25 mg PO BID [place] Midodrine (Proamatine) 5 mg PO TID [facility] Pantoprazole Sodium (Protonix Inj) 40 mg IVP DAILY [facility] Family Hx: Unable to obtain from the patient ROS: Unable to obtain from the patient. Past Patient History - Infectious Disease Hx of Infectious Diseases: None - Tetanus Immunizations Tetanus Immunization: Unknown - Past Social History Smoking Status: Never Smoked - CARDIAC Hx Cardiac Disorders: Yes Hx Hypertension: Yes Other/Comment: life vest 09/09 - PULMONARY Hx Chronic Obstructive Pulmonary Disease (COPD): Yes - NEUROLOGICAL HX Cerebrovascular Accident: Yes (right sided) - HEENT Hx Blind: Yes (legally blind) Hx Cataracts: Yes Hx Glaucoma: Yes - RENAL Hx Renal Failure: Yes (on dialysis) Other/Comment: mon/fri/fri at [facility] - ENDOCRINE/METABOLIC Hx Diabetes Mellitus Type 2: Yes - HEMATOLOGICAL/ONCOLOGICAL Hx Blood Disorders: Yes Hx Blood Transfusions: Yes Hx Blood Transfusion Reaction: No - INTEGUMENTARY Hx Dermatological Problems: Yes - MUSCULOSKELETAL/RHEUMATOLOGICAL Hx Arthritis: Yes - GASTROINTESTINAL Hx Gastrointestinal Disorders: No - GENITOURINARY/GYNECOLOGICAL Hx Genitourinary Disorders: No - PSYCHIATRIC Hx Psychophysiologic Disorder: Yes Hx Depression: Yes Hx Emotional Abuse: No Hx Physical Abuse: No Hx Substance Use: No - SURGICAL HISTORY Hx Cholecystectomy: Yes Hx Hysterectomy: Yes Other/Comment: lav graft removal graft, dialysis access rt upper chest wall - ANESTHESIA Hx Anesthesia Reactions: No Hx Malignant Hyperthermia: No Meds Allergies/Adverse Reactions: Allergies Allergy/AdvReac Type Severity Reaction Status Date / Time FISH Allergy URTICARIA Verified 07/11/17 14:51 morphine Allergy ANAPHYLAXIS Verified 07/07/17 01:14 oxycodone Allergy ANAPHYLAXIS Verified 07/07/17 01:14 Penicillins Allergy ANAPHYLAXIS Verified 07/07/17 01:14 steroids Allergy ANAPHYLAXIS Uncoded 07/07/17 01:14 - Medications Medications: Current Medications Albuterol/Ipratropium (Duoneb 3 Mg/0.5 Mg (3 Ml) Ud) 3 ml IH Q2H PRN PRN Reason: Shortness of Breath Heparin Sodium (Porcine) (Heparin) 5,000 units SC Q12 [facility]; Protocol Methylprednisolone (Solu-Medrol) 40 mg IVP Q12 [facility] Metoprolol Tartrate (Lopressor) 25 mg PO BID [facility] Midodrine (Proamatine) 5 mg PO TID [facility] Pantoprazole Sodium (Protonix Inj) 40 mg IVP DAILY [facility] Physical Exam - Constitutional Appears: Toxic, In Acute Distress, Chronically Ill - Head Exam Head Exam: ATRAUMATIC, NORMOCEPHALIC - Eye Exam Eye Exam: EOMI, PERRL Pupil Exam: NORMAL ACCOMODATION, PERRL - ENT Exam ENT Exam: Mucous Membranes Moist, Normal External Ear Exam, TM's Normal Bilaterally - Neck Exam Neck exam: Positive for: Normal Inspection - Respiratory Exam Respiratory Exam: Wheezes, Respiratory Distress - Cardiovascular Exam Cardiovascular Exam: REGULAR RHYTHM, RRR, +S1, +S2 - GI/Abdominal Exam GI & Abdominal Exam: Distended, Soft. absent: Tenderness - Extremities Exam Extremities exam: Positive for: normal inspection. Negative for: joint swelling, pedal edema - Neurological Exam Additional comments: AAO x 0-1 at this time. Was initially hypotensive. - Skin Skin Exam: Dry, Intact, Warm Results - Vital Signs Recent Vital Signs: Last Vital Signs Temp 97.6 F 12/08/17 09:06 Pulse 78 12/08/17 17:05 Resp 20 12/08/17 14:58 BP 99/76 L 12/08/17 14:58 Pulse Ox 100 12/08/17 14:58 - Labs Result Diagrams: 12/08/17 10:50 12/08/17 11:30 Labs: Laboratory Results - last 24 hr 12/08/17 12/08/17 12/08/17 09:36 10:50 10:50 WBC 7.7 RBC 3.10 L Hgb 11.2 L Hct 36.1 MCV 116.5 H D MCH 36.1 H MCHC 31.0 RDW 18.7 H Plt Count 163 MPV 11.3 H Gran % 71.0 H Lymph % (Auto) 15.8 L [place] % (Auto) 11.0 H Eos % (Auto) 2.1 Baso % (Auto) 0.1 Gran # 5.46 Lymph # (Auto) 1.2 [place] # (Auto) 0.9 H Eos # (Auto) 0.2 Baso # (Auto) 0.01 pCO2 pO2 HCO3 ABG pH ABG Total CO2 ABG O2 Saturation ABG O2 Content ABG Base Excess ABG Hemoglobin ABG Carboxyhemoglobin POC ABG HHb (Measured) ABG Methemoglobin ABG O2 Capacity Hgb O2 Saturation FiO2 Sodium Potassium Chloride Carbon Dioxide Anion Gap BUN Creatinine Est GFR ( Amer) Est GFR (Non-Af Amer) POC Glucose (mg/dL) 203 H Random Glucose Calcium Phosphorus Magnesium Total Bilirubin AST ALT Alkaline Phosphatase Lactate Dehydrogenase Total Creatine Kinase Troponin I Total Protein Albumin Globulin Albumin/Globulin Ratio TSH 3rd Generation 10.80 H Salicylates Acetaminophen Alcohol, Quantitative < 10 12/08/17 12/08/17 12/08/17 10:50 11:30 13:13 WBC RBC Hgb Hct MCV MCH MCHC RDW Plt Count MPV Gran % Lymph % (Auto) [place] % (Auto) Eos % (Auto) Baso % (Auto) Gran # Lymph # (Auto) [place] # (Auto) Eos # (Auto) Baso # (Auto) pCO2 85 H* pO2 73.0 L HCO3 28.9 H ABG pH 7.14 L* ABG Total CO2 31.5 H ABG O2 Saturation 94.0 L ABG O2 Content 15.6 ABG Base Excess -2.0 ABG Hemoglobin 12.1 ABG Carboxyhemoglobin 2.5 H POC ABG HHb (Measured) 5.8 H ABG Methemoglobin 0.4 ABG O2 Capacity 16.6 Hgb O2 Saturation 91.4 L FiO2 32.0 Sodium 136 Potassium 4.4 Chloride 95 L Carbon Dioxide 30 Anion Gap 16 BUN 28 H Creatinine 5.0 H Est GFR ( Amer) 10 Est GFR (Non-Af Amer) 8 POC Glucose (mg/dL) Random Glucose 179 H Calcium 8.5 Phosphorus 7.3 H Magnesium 2.1 Total Bilirubin 0.9 AST 34 ALT 25 Alkaline Phosphatase 237 H Lactate Dehydrogenase 526 Total Creatine Kinase 115 Troponin I 0.08 D Total Protein 8.2 Albumin 3.6 Globulin 4.6 Albumin/Globulin Ratio 0.8 L TSH 3rd Generation Salicylates < 1 L Acetaminophen < 10.0 L Alcohol, Quantitative 12/08/17 15:26 WBC RBC Hgb Hct MCV MCH MCHC RDW Plt Count MPV Gran % Lymph % (Auto) [place] % (Auto) Eos % (Auto) Baso % (Auto) Gran # Lymph # (Auto) [place] # (Auto) Eos # (Auto) Baso # (Auto) pCO2 pO2 HCO3 ABG pH ABG Total CO2 ABG O2 Saturation ABG O2 Content ABG Base Excess ABG Hemoglobin ABG Carboxyhemoglobin POC ABG HHb (Measured) ABG Methemoglobin ABG O2 Capacity Hgb O2 Saturation FiO2 Sodium Potassium Chloride Carbon Dioxide Anion Gap BUN Creatinine Est GFR ( Amer) Est GFR (Non-Af Amer) POC Glucose (mg/dL) 127 H Random Glucose Calcium Phosphorus Magnesium Total Bilirubin AST ALT Alkaline Phosphatase Lactate Dehydrogenase Total Creatine Kinase Troponin I Total Protein Albumin Globulin Albumin/Globulin Ratio TSH 3rd Generation Salicylates Acetaminophen Alcohol, Quantitative Assessment & Plan - Assessment and Plan (Free Text) Assessment: 72 yo female known to me from previous hospitalizations to [facility]. The patient with initial complaint of back pain on sitting down . Found to be hypotensiive at this time. Antibiotics and fluids started. The patient is more awake and alert compared to admission. Blood pressure has improved with 1L of fluids. Started on Aztreonam for antibiotic coverage with single dose of Vancomycin IV and Gentamicin IV. Nam cultures sent. No leukocytosis. Supportive care. Case discussed with Dr. Garrett. If there is continued worsening, will have to consider use of Cefepime despite PCN allergy. Awaiting culture results. Broad antibiotic coverage at this time. Supportive are Thank you for allowing me to participate in the care of this patient, we fracisco follow with you.
[2017-12-08 19:50] LABS: VENOUS BLOOD GAS BASE EXCESS -0.9 mmol/L (0.0-2.0); VENOUS BLOOD GAS PO2 50 mm/Hg (30-55)
[2017-12-08 20:02] LABS: VENOUS BLOOD PH 7.19 (7.32-7.43)
[2017-12-08 20:54] LABS: ARTERIAL BLOOD GAS HCO3 27.6 mmol/L (21-28); ARTERIAL BLOOD GAS O2 SAT 98.7 % (95-98); ARTERIAL BLOOD GAS PCO2 74 mm/Hg (35-45); ARTERIAL BLOOD GAS TCO2 29.9 mmol.L (22-28)
[2017-12-08 20:55] LABS: ARTERIAL BLOOD GAS PH 7.18 (7.35-7.45)
--- NOTE | 2017-12-08 21:14 | CON ---
DATE: 12/08/2017 REASON FOR CONSULTATION: Profound hypotension, altered mental status, shortness of breath, fall at home. HISTORY OF PRESENTING ILLNESS: The patient is well known to me from outpatient dialysis. The patient was brought to the emergency room when the patient almost fell at home while she was trying to get ready for dialysis. The patient was recently discharged from [facility] where she was admitted for asthma exacerbation. The patient has been having issues with lethargy, fatigue, weakness, chronic hypotension. The patient was initially discharged to rehab but went back to [facility] because she did not like the rehab. In the emergency room, she was found to be altered, lethargic, minimally responsive. Also found to be severely hypotensive. Initial blood pressure was 124/70 but subsequent blood pressure dropped to 70 systolic. She is currently seen in the ER. She is awake, eyes are open. She has labored breathing. Prolonged expiration. She is minimally responsive. Her blood pressure is 88/48, heart rate is 86, respiratory rate is 20. She is afebrile. Her electrolytes look okay. Her potassium is 4.4. Phosphorus is found to be high at 7.3. PAST MEDICAL/SURGICAL HISTORY: NIDDM, hypertension, ESRD, CAD, arrhythmia, back abscess, severe cardiomyopathy, decreased ejection fraction, being evaluated for an AICD placement at [facility], severe anemia, diabetic retinopathy, legally blind, secondary hyperparathyroidism, asthma. FAMILY HISTORY: Hypertension. SOCIAL HISTORY: No smoking, no alcohol use, no IV drug abuse. ALLERGIES: FISH, MORPHINE, OXYCODONE, PENICILLIN. MEDICATIONS: Medications at home, prednisone 10 mg, Renagel 1600 three times daily, Singulair, Lopressor 25 two times daily, losartan 25, insulin, gabapentin 100, ferrous sulfate 325, Plavix 75, Lipitor 20, Tylenol. REVIEW OF SYSTEMS: All systems are reviewed, pertinent positives as mentioned in history of presenting illness, rest unremarkable. PHYSICAL EXAMINATION: GENERAL: Obese elderly lady, lying in bed, in the emergency room, in moderate distress. VITAL SIGNS: Blood pressure 88/48, heart rate 86, respiratory rate 20, temperature 97.6. HEENT: Normocephalic, atraumatic, positive pallor, pupils reactive to light. NECK: Supple, no JVD. LUNGS: Bilateral rhonchi, prolonged expiration, poor air movement. CARDIAC: S1, S2. Regular rate and rhythm. No murmur, no rub. ABDOMEN: Obese, distended, soft, nontender. Bowel sounds present. EXTREMITIES: Chronic stasis changes, 1+ pitting edema of the lower extremities. Intake and output, not charted. . LABORATORY DATA: WBC 7.7, hemoglobin 11, hematocrit 36, platelets 163. Sodium 136, potassium 4.4, chloride 95, CO2 of 30, BUN 28, creatinine 5, glucose 179, calcium 8.7, phosphorus 7.3, magnesium 2.1, albumin 3.6. TSH 10.8. Tylenol less than 10. Chest x-ray, poor films. ASSESSMENT AND PLAN: 1. Severe cardiomyopathy, congestive heart failure, decreased ejection fraction, automatic implantable cardioverter-defibrillator placement. 2. Profound hypotension. 3. Respiratory distress, congestive heart failure. 4. Asthma exacerbation. 5. Non-insulin dependent diabetes mellitus. 6. End-stage renal disease 7. Anemia of chronic kidney disease. PLAN: 1. In light of her profound hypotension, decompensated congestive heart failure, respiratory distress, recommend ICU evaluation. 2. ProAmatine 5 mg three times a day. 3. We will attempt dialysis and try to remove some fluid. 4. Pulmonary evaluation. 5. Cardiology evaluation. 6. Case discussed with nursing staff at length. 7. Case discussed with the dialysis nurses. 8. More than 35 minutes was spent in the evaluation of this critically ill patient. Marlyn Snow MD
[2017-12-08] MEDS ORDERED: Pneumococcal 23-Valent Vaccine IM ONE (21:36)
[2017-12-08] MEDS ORDERED: Influenza Vaccine 60 mcg/0.5 mL SYR (4YR UP) IM ONE (21:36)
[2017-12-08] MEDS: MethylPREDNISolone 40 mg Vial IVP SCH (21:57)
[2017-12-08] MEDS ORDERED: Milrinone 20mg/100ml D5W 100 ML IV PRN (22:27)
--- NOTE | 2017-12-09 03:29 | CON ---
DATE: 12/08/2017 REASON FOR THE CONSULTATION: AFib, altered mental status, possible cardiomyopathy, coronary artery disease, cardiac evaluation. BRIEF CLINICAL HISTORY: This is a 72-year-old female with past medical history significant for diabetes; hypertension; end-stage renal disease, on hemodialysis, Friday, Friday and Friday; CAD, status post stent in the past, brought by the family status post assisted fall and according to the daughter, the altered mental status is since yesterday, who was recently discharged from [facility] on Friday. Since then the patient was found to be difficulty in recognizing the family member, so brought here. The patient's health aide was taking care of her and wanted to change, but the patient was very weak, as to about to fall, so the certified nursing assistant helped her and assisted from fall, but the nursing says she denies any loss of conscious or syncope. The patient has alerted mental status, unable to give a history. Called the daughter, Rivka Pearce, telephone number [phone] and get all the information from her. Though, the patient is well known to us from previous admission when the patient was admitted on 07/07/2017 for fracture of ankle and was seen by our group for preoperative evaluation and risk stratification. At that time later on, it was decided to treat medically and the patient did not go for surgical or internal fixation as planned initially on admission. PAST MEDICAL HISTORY: Significant for diabetes; hypertension; end-stage renal disease, on dialysis; hyperlipidemia; history of coronary artery disease, history of stent [address] [facility], Dr. Motta. Now, recently the patient is being seen by Dr. Tuttle, their group for electrophysiological study and supposed to have AICD done, but because the patient developed a fluid in the lung and it was postponed, now the patient has a LifeVest. She has a history of COPD and end-stage renal disease on Friday, Friday and Friday as mentioned above. PREVIOUS CARDIAC WORKUP: As follows: The patient has a history of coronary artery disease, history of stent on 12/2014 at [facility] by Dr[facility], Dr. Motta. Last stent was 12/2015. Recently seen by Dr. Tuttle, electrophysiology at [facility] and scheduled for defibrillator, was canceled because the patient has according to the daughter pleural effusion, was canceled, and it was postponed and put a LifeVest since then. Recent echo was done on 07/10/2017 that revealed ejection fraction 50-55%, trace aortic regurgitation, moderate mitral regurgitation, moderate to severe tricuspid regurgitation, RV systolic pressure of 42. Dilated IVC was noted. Flattening septum consists with RV pressure volume overload dated 07/10/2017. SOCIAL HISTORY: Denies smoking. Denies any history of alcohol abuse. CURRENT MEDICATIONS: The patient at home was taking prednisone 10 mg daily, Renagel insulin, Losartan, clonidine, and acetaminophen. REVIEW OF SYSTEMS: As per HPI. PHYSICAL EXAMINATION GENERAL: Height of the patient 4 feet 11 inches; weight of the patient 150 pounds, body mass index 32.3 kg/m2. VITAL SIGNS: Temperature, afebrile; heart rate is 77, blood pressure 112/68. HEENT: PERRLA. Extraocular muscles intact. NECK: Supple. No carotid bruits, no thyromegaly. CHEST: Clear to auscultation. The patient has scattered rhonchi all over. HEART: S1, S2 regular. ABDOMEN: Soft and distended. EXTREMITIES: Clubbing and cyanosis negative. LABORATORY DATA: Blood work up as follows: WBC 7.7, hemoglobin 11.2, hematocrit 36.1, platelet count 163. Chemistry showed sodium 130, potassium 4.4, chloride 95, CO2 of 30, anion gap of 16, BUN 28, creatinine 5.0. Troponin is 0.08. TSH 10.8. EKG shows atrial fibrillation, heart rate 76. Chest x-ray reviewed poor inspiratory effort and LifeVest noted, possible fluid in the lobar fissure noted. Cannot rule out right lower lobe pneumonia. IMPRESSION: A 72-year-old female with past medical history significant for coronary artery disease, status post stent in 12/2015; history of end-stage renal disease, on dialysis Friday, Friday, and Friday; obesity; coronary artery disease; chronic obstructive pulmonary disease; history of recently diagnosed cardiomyopathy, supposed to have automatic implantable cardioverter-defibrillator, but in LifeVest because of pleural effusion, admitted with altered mental status. The patient is unable to give history, information obtained from the daughter by calling, telephone number [phone]. Since the patient had altered mental status, unable to recognize the family members since the day before yesterday after being discharged from [facility]. Chest x-ray cannot rule out underlying pneumonia and some fluid in the right interlobar fissure. Also has a LifeVest. Atrial fibrillation appendage appears new since last seen here in June. The chronicity is unknown how long is in atrial fibrillation. RECOMMENDATION: We will start broad-spectrum antibiotics possible early pneumonia. Get the dialysis as soon as possible, we put Xopenex to prevent rapid atrial rate, and will get pulmonary consult with Dr. Arias with broad-spectrum antibiotic interim to cover for pneumonia. We will follow with you. Overall, the patient's condition is critical. Long-term prognosis is extremely guarded. The patient has been scheduled for defibrillator because of pleural effusion and fluid in the lung as per daughter, and currently the patient has a LifeVest. We will give Proventil treatment and discussed with the nurses taking care to send the patient stat for dialysis. Further recommendations depending upon the hospital course. Reason for altered mental status is not sure, we will get a CAT scan. We will follow with you. Thank you, Dr. House for providing us the opportunity in taking care of the patient, Debby Olguin. Joss Bah MD
--- NOTE | 2017-12-09 05:50 | CON ---
DATE: 12/08/2017 NEUROLOGY FOLLOWUP CHIEF COMPLAINT: Altered mental status. HISTORY OF PRESENT ILLNESS: This is a 72-year-old woman; history of type 2 diabetes mellitus; hypertension; end-stage renal disease on hemodialysis, Friday and Friday; coronary artery disease with coronary artery stent, who was brought by the EMS for evaluation of fall. Per EMS, the patient almost fell while the aide was getting her ready for dialysis. The son later came and saw her at the bedside and the patient was admitted to [facility] for asthma exacerbation and was discharged this Friday. Apparently, the patient was lethargic and weak at home, and says it is difficult for her to stay awake. She has pursed lip breathing on bedside. She responds to noxious stimuli. She opens her eyes and follows simple commands but is oriented to only self. CT scan of the head and MRI of the brain are currently pending. She is in the ER. I have ordered an arterial blood gases to see if there is any hypercapnia. PAST MEDICAL HISTORY: As above. SOCIAL HISTORY: No illicit drug use, smoking or EtOH abuse. ALLERGIES: FISH, MORPHINE, OXYCODONE, PENICILLIN, STEROIDS. REVIEW OF SYSTEMS: Unobtainable as the patient is in lethargic status. FAMILY HISTORY: Noncontributory. LABORATORY DATA: Sodium is 136, potassium 3.4, chloride 95, carbon dioxide 30, BUN of 28, creatinine of 5, random glucose of 179. TSH is 10.8 which is elevated, UTOX is negative. ABG is currently pending. PHYSICAL EXAMINATION VITAL SIGNS: Temperature 97.6, pulse rate of 78, blood pressure of 80/44, respiratory rate of 20, and oxygen saturation 99% on room air. GENERAL: The patient was seen in bed, in no acute distress. Lethargic. NECK: Supple. No JVD, no adenopathy noted. LUNG: Scattered rhonchi. Decreased breath sounds. HEART: S1, S2. Normal rate and rhythm. No murmurs, rubs, or gallops. ABDOMEN: Soft, nontender. Bowel sounds present. Stomach is distended. EXTREMITIES: No clubbing. No cyanosis. Peripheral pulses 2+ felt bilaterally. NEURO EXAM: The patient is lethargic. Follows only simple commands. Oriented to person and self. Speech is hyperphonic. No aphasia. Cranial nerves II through XII intact. Motor exam: Moves all extremities equally. No pronator drift seen. Sensory exam: Decreased light touch and pinprick up to the calves bilaterally. Decreased vibration of the toes. DTRs are 2+ throughout, 1 at both knees and absent at the ankles. Toes are downgoing bilaterally. Coordination: Gait is deferred for now. ASSESSMENT AND PLAN: This is a 72-year-old woman with history of type 2 diabetes mellitus, hypertension, end-stage renal disease on hemodialysis, asthma, who reported for worsening mental status and lethargic since she was discharged from [facility] on 12/06/2017, and is found in the ER to have pursed lip breathing and low systolic and diastolic blood pressure of 80/55 and indicating poor cerebral perfusion, causing lethargy and seems there is some underlying toxic metabolic process, encephalopathy style going on. At this time, we will recommend: 1. MRI of the brain to see any acute intracranial abnormalities. 2. A CT scan of the head has been ordered but still has not been done and is ordered stat. 3. Keep her blood pressure at 140 to 180. 4. Arterial blood gas stat. We will see for any hypercapnia. 5. Continue current present medical management. Dario Hensley MD
[2017-12-09 06:15] LABS: GRAN # 7.71 (1.4-6.5); HEMOGLOBIN 10.9 g/dL (12.0-16.0); LYMPH # 0.6 (1.2-3.4); LYMPH % 6.8 % (22.0-35.0); MEAN CELL VOLUME 119.9 fl (80.0-105.0); MEAN CORPUSCULAR HEMOGLOBIN 36.2 pg (25.0-35.0); MEAN CORPUSCULAR HGB CONC 30.2 g/dl (31.0-37.0); MEAN PLATELET VOLUME 10.8 fl (7.0-11.0); MONO # 0.1 (0.1-0.6); MONO % 1.2 % (1.0-6.0); PLATELET COUNT 141 10^3/uL (120.0-450.0); RBC 3.01 10^6/uL (3.5-6.1); RED CELL DISTRIBUTION WIDTH 16.7 % (11.5-14.5); WHITE BLOOD COUNT 8.4 10^3/ul (4.5-11.0)
[2017-12-09 06:31] LABS: ALB/GLOB RATIO 0.7 (1.1-1.8)
[2017-12-09 06:36] LABS: ALBUMIN 3.1 g/dL (3.0-4.8); CALCIUM 8.2 mg/dL (8.4-10.5)
[2017-12-09 08:14] LABS: ANISOCYTOSIS 1+; LYMPHOCYTE 5 % (22.0-35.0); MONOCYTE 1 % (1.0-6.0); NEUTROPHIL 94 % (50.0-70.0); PLATELET ESTIMATE NORMAL (NORMAL)
[2017-12-09] MEDS ORDERED: Albuterol-Ipratrop 3 mg / 0.5 (3 ml) UD IH STA (08:50)
--- NOTE | 2017-12-09 09:40 | HP ---
DATE OF EXAM: 12/08/2017 CHIEF COMPLAINT: Trauma. The patient was seen and examined on the bedside in the emergency room by me on 12/08/2017. I am doing history and physical as of 12/08/2017. HISTORY OF PRESENT ILLNESS: Ms. Debby Olguin 72 years old female with past medical history of diabetes mellitus; hypertension; end-stage renal disease, on hemodialysis 3 times a week; coronary artery disease with coronary stent placement, came for evaluation status post assisted fall. Per EMS, the patient almost fell while her aid was getting her ready for dialysis. The son who later came in was on the bedside states that the patient was admitted to [facility] for asthma exacerbation and discharged on Friday. States the patient has been lethargic and weak since she came back from [facility]; states that it has been difficult for her to stay awake or ambulate. She usually ambulates herself for her ADL, but has not been able to ambulate since she came back from [facility] and she slides from her chair while the aid was holding her. No fever. No chills. The patient is sleepy but arousable. I have discussion done with patient's son on the bedside in the emergency room. PAST MEDICAL HISTORY: Hypertension, LifeVest 24/7, COPD, and legally blind, cataract with glaucoma, on dialysis , arthritis, depression, cholecystectomy, hysterectomy. FAMILY HISTORY: Father and mother, noncontributory. HABITS: Never smoked. No drugs. No ethanol. ALLERGIES: THE PATIENT ALLERGIC WITH MORPHINE, OXYCODONE, PENICILLIN AND STEROID. HOME MEDICATIONS: Insulin and ferrous sulfate. REVIEW OF SYSTEMS: The patient was seen and examined on bedside in the emergency room. She is not able to give review of systems, fatigue, sleepy, arousable; son gave us review of system. PHYSICAL EXAMINATION: VITAL SIGNS: Temperature 97.6, pulse 77, respirations 18, blood pressure 124/80, pulse oximetry 100. HEENT: Head; normocephalic, atraumatic. Eyes; closed. Nose patent. Mucous membrane moist. NECK: Supple. No carotid bruit, JVD or thyromegaly. CHEST: Bilaterally symmetrical. HEART: S1 and S2 positive. LUNGS: Clear to auscultation. ABDOMEN: Soft. Bowel sounds positive. No organomegaly. EXTREMITIES: No edema. No cyanosis. NEUROLOGIC: The patient is sleepy arousable, is not able to follow commands. LABORATORY: White blood cells 7.7, hemoglobin 11.2, hematocrit 36.1, platelets 153. Sodium 136, potassium 4.4, BUN 20, creatinine 5.0, glucose 127, phosphorous 7.3. ASSESSMENT AND PLAN: Ms. Debby Olguin 72 years old lady with anemia, hypochloremia, renal insufficiency, hyperglycemia, hyperphosphatemia, hypothyroidism. Alcohol level is less than 10. The patient has diabetes mellitus; hypertension; end-stage renal disease on hemodialysis; coronary artery disease with cardiac stenting; recently discharged from [facility], history of chronic obstructive pulmonary disease, diabetic retinopathy, legally blind, history of cataracts and glaucoma. History of blood transfusion as per son arthritis, depression, cholecystectomy, hysterectomy, now admitted with altered mental status, pleural effusion, pneumonia, and weakness. The patient admitted in the unit, consult call with Dr. Snow, the patient's ceo & founder, and Dr. Gonzales Infectious disease. Started antibiotics. Waiting for the culture, supportive care. Gastrointestinal and deep venous thrombosis prophylaxis. Repeat labs. We will follow up. Taylor House MD MTDDamien
--- NOTE | 2017-12-09 10:22 | CON ---
DATE: 12/08/2017 PULMONARY CRITICAL CARE CONSULT REFERRING PHYSICIAN: Taylor House MD REASON FOR CONSULT: Respiratory failure, cor pulmonale, may have sleep apnea syndrome. HISTORY OF PRESENT ILLNESS: This is a 72-year-old female with past medical history significant for chronic obstructive lung disease, may have hypoventilation syndrome, cardiomyopathy, pulmonary hypertension, diabetes, recently discharged from [facility] with exacerbation of chronic lung disease, on tapered dose of steroids, comes with short of breath, found to have respiratory failure, was placed on noninvasive ventilation, started on antibiotics, steroids, presently admitted to Critical Care , very lethargic, arousable, on noninvasive ventilation. No hemoptysis or emesis. No hematuria. Does have a leg swelling. PAST MEDICAL HISTORY: Renal failure, dialysis dependent; chronic obstructive lung disease; cardiomyopathy; pulmonary hypertension; diabetes; hypertension; coronary artery disease, has a LifeVest; history of CVA; diabetes; degenerative joint disease; history of depression. ALLERGIES: SHE IS ALLERGIC TO MORPHINE, OXYCODONE, PENICILLIN, AND STEROIDS, BUT SHE HAD BEEN ON PREDNISONE THOUGH. MEDICATIONS: She is on aztreonam 500 mg every 8 hours, albuterol/Atrovent nebulizer every 2 hours p.r.n., heparin 5000 units subcu every 12 hours, metoprolol tartrate 25 mg twice a day, midodrine 5 mg three times a day, Protonix 40 mg daily, Solu-Medrol 40 mg every 12 hours. REVIEW OF SYSTEMS: Had been sleepy and tired with cough, recently discharged from [facility]. No chest pain. No abdominal pain. No dysuria. Does have leg swelling. PHYSICAL EXAMINATION: GENERAL: She is on noninvasive ventilation, sleepy, arousable, goes back to sleep. VITAL SIGNS: She is afebrile, heart rate 70, respiratory rate is 16, blood pressure 95/53, pulse ox 97% on noninvasive ventilation. HEENT: Moist mucous membranes. Short thick neck. LUNGS: Poor airflow. HEART: S1 and S2. ABDOMEN: Soft, nontender, nondistended. EXTREMITIES: Edema. NEUROLOGIC: Lethargic. LABORATORY DATA: Shows hemoglobin 11.2, hematocrit 36.1, WBC 7.7, platelet is 163. Blood gases show pH 7.18, pCO2 of 74, O2 of 107, this is on BiPAP with 50% oxygen. Sodium 136, potassium 4.4, chloride 95, bicarbonate 30, BUN 28, creatinine 5, glucose 179, calcium 8.5, phosphorus 7.3, magnesium 2.1, AST 24, ALT 25, alk phos is 237. Troponin less than 0.08. Albumin 3.6. TSH 10.8. Toxicology was unremarkable. Chest x-ray done in ER shows right lower lobe infiltrate with some right pleural effusion. IMPRESSION AND PLAN: Respiratory failure with CO2 retention and hypoxemia, is probably [id number] respiratory failure; right lower lobe pneumonia; chronic obstructive lung disease; renal failure, dialysis dependent; pulmonary hypertension; cardiomyopathy; coronary artery disease; diabetes. Case discussed with Infectious Disease doctor, Dr. Gonzales, who knows the patient from [place]. Also, spoke to nursing staff as well as respiratory therapist. I agree with the present management. Continue antibiotics. Continue steroids, inhaled bronchodilator. Continue noninvasive ventilation. Requested to place nasal airway in the left nostril to get better ventilation by BiPAP. Agree with repeating echocardiogram. I will suggest placing her on Primacor for now and watch her for any cardiac arrhythmia or cardiac decompensation closely. Follow up ABG, chest x-ray, CBC, CMP in the morning. We will follow with you. Joss Arias MD
--- NOTE | 2017-12-09 10:35 | CARD ---
APPROVED REPORT Date of service: 12/09/2017 EKG Measurement Heart [id number] <Conclusion> RSR with APC RVCD PRWP Possible ASMI, age unknown NSSTW changes Low voltage ECG RAD No change
--- NOTE | 2017-12-09 11:23 | CP.CCUPN ---
<[facility] [place] - Last Filed: 12/09/17 12:39> CCU Subjective - Physician Review Subjective (Free Text): CRITICAL CARE PROGRESS NOTE FOR DR. COLE Almao PGY-1 Pt seen and examined at bedside this am. Pt still confused. AxO x 1. She is awake, alert, responding to questions. She reports she has a cough. She will be undergoing bedside HD this am. She denies chest pain, palpitations, shortness of breath, abdominal pain. CCU Objective - Vital Signs / Intake & Output Vital Signs (Last 4 hours): Vital Signs Pulse Resp BP Pulse Ox 12/09/17 09:03 98 H 12/09/17 08:10 94 H 22 92 L 12/09/17 08:00 96 H 22 93/33 L 94 L 12/09/17 07:50 97 H 23 91 L 12/09/17 07:45 96 H 25 H 84/46 L 91 L 12/09/17 07:40 94 H 21 92 L 12/09/17 07:30 91 H 18 95 12/09/17 07:20 91 H 18 92 L Intake and Output (Last 8hrs): Intake & Output 12/08/17 12/09/17 12/09/17 22:59 06:59 14:59 Intake Total 628 Output Total 0 Balance 628 Weight 160 lb 172 lb 14.4 oz Intake: IV 578 Left Antecubital 578 Oral 50 Output: Urine 0 Urine, Voided 0 - Physical Exam Head: Positive for: Atraumatic, Normocephalic Pupils: Positive for: PERRL Extroacular Muscles: Positive for: EOMI Conjunctiva: Positive for: Normal Mouth: Positive for: Moist Mucous Membranes Neck: Positive for: Normal Range of Motion Respiratory/Chest: Positive for: Wheezes. Negative for: Respiratory Distress, Accessory Muscle Use Cardiovascular: Positive for: Regular Rate and Rhythm, Normal S1, S2. Negative for: Murmurs Abdomen: Positive for: Distention. Negative for: Tenderness, Peritoneal Signs, Rebound Back: Positive for: Normal Inspection Upper Extremity: Positive for: Normal Inspection. Negative for: Cyanosis, Edema Lower Extremity: Positive for: Normal Inspection. Negative for: Edema Neurological: Positive for: GCS=15, CN II-XII Intact, Speech Normal Skin: Positive for: Warm, Dry, Normal Color. Negative for: Rashes Psychiatric: Positive for: Alert, Oriented x 3, Normal Insight, Normal Concentration - Medications Active Medications: Active Medications Generic Name Dose Route Start Last Admin Trade Name Freq PRN Reason Stop Dose Admin Albuterol/Ipratropium 3 ml 12/08/17 14:37 Duoneb 3 Mg/0.5 Mg (3 Ml) Ud IH Q2H PRN Shortness of Breath Heparin Sodium (Porcine) 5,000 units 12/08/17 22:00 12/08/17 21:57 Heparin SC 5,000 units Q12 AUGUSTIN Administration Protocol Aztreonam 500 mg/ Sodium 100 mls @ 100 mls/hr 12/08/17 22:00 12/09/17 06:15 Chloride IVPB 100 mls/hr Q8 AUGUSTIN Administration Protocol Milrinone Lactate/Dextrose 100 mls @ 4.355 mls/hr 12/08/17 22:27 12/09/17 00:17 Primacor 20mg/100ml D5w IV 0.2 mcg/kg/min .[id number] PRN 4.355 mls/hr TITRATE PER MD ORDER Administration Protocol 0.2 MCG/KG/MIN Methylprednisolone 40 mg 12/08/17 22:00 12/08/17 21:57 Solu-Medrol IVP 40 mg Q12 AUGUSTIN Administration Metoprolol Tartrate 25 mg 12/08/17 18:00 12/08/17 19:06 Lopressor PO Not Given BID AUGUSTIN Midodrine 5 mg 12/08/17 18:00 12/08/17 19:07 Proamatine PO 5 mg TID AUGUSTIN Administration Pantoprazole Sodium 40 mg 12/08/17 16:30 12/08/17 19:07 Protonix Inj IVP 40 mg DAILY AUUGSTIN Administration - Patient Studies Lab Studies: Microbiology Studies 12/08/17 10:50 Blood Culture - Preliminary Blood-Venous NO GROWTH AFTER 24 HOURS Lab Studies 12/09/17 12/09/17 12/09/17 Range/Units 05:20 05:20 05:20 WBC 8.4 (4.5-11.0) 10^3/ul RBC 3.01 L (3.5-6.1) 10^6/uL Hgb 10.9 L (12.0-16.0) g/dL Hct 36.1 (36.0-48.0) % MCV 119.9 H D (80.0-105.0) fl MCH 36.2 H (25.0-35.0) pg MCHC 30.2 L (31.0-37.0) g/dl RDW 16.7 H (11.5-14.5) % Plt Count 141 (120.0-450.0) 10^3/uL MPV 10.8 (7.0-11.0) fl Gran % 92.0 H (50.0-68.0) % Lymph % (Auto) 6.8 L (22.0-35.0) % [place] % (Auto) 1.2 (1.0-6.0) % Eos % (Auto) 0.0 L (1.5-5.0) % Baso % (Auto) 0.0 (0.0-3.0) % Gran # 7.71 H (1.4-6.5) Lymph # (Auto) 0.6 L (1.2-3.4) [place] # (Auto) 0.1 (0.1-0.6) Eos # (Auto) 0.0 (0.0-0.7) Baso # (Auto) 0.00 (0.0-2.0) K/mm3 Neutrophils % (Manual) 94 H (50.0-70.0) % Lymphocytes % (Manual) 5 L (22.0-35.0) % Monocytes % (Manual) 1 (1.0-6.0) % Platelet Evaluation Normal (NORMAL) Anisocytosis (manual) 1+ Macrocytosis (manual) 1+ pCO2 (35-45) mm/Hg pO2 (80-100) mm/Hg HCO3 (21-28) mmol/L ABG pH (7.35-7.45) ABG Total CO2 (22-28) mmol.L ABG O2 Saturation (95-98) % ABG O2 Content (15-23) ML/dl ABG Base Excess (-2.0-3.0) mmol/L ABG Hemoglobin (11.7-17.4) g/dL ABG Carboxyhemoglobin (0.5-1.5) % POC ABG HHb (Measured) (0-5) % ABG Methemoglobin (0.0-3.0) % ABG O2 Capacity (16-24) mL/dl ABG Potassium (3.6-5.2) mmol/L VBG pH (7.32-7.43) VBG pCO2 (40-60) VBG HCO3 (21-28) mmol/l VBG Total CO2 (22-28) mmol.L VBG O2 Sat (Calc) (40-65) % VBG Base Excess (0.0-2.0) mmol/L VBG Potassium (3.6-5.2) mmol/L Hgb O2 Saturation (95.0-98.0) % Glucose (65-105) mg/dl Lactate (0.7-2.1) mmol/L FiO2 % Sodium 136 (132-148) mmol/L Potassium 4.8 (3.6-5.0) mmol/L Chloride 98 (98-107) mmol/L Carbon Dioxide 26 (21-33) mmol/L Anion Gap 17 (10-20) BUN 32 H (7-21) mg/dL Creatinine 5.3 H (0.7-1.2) mg/dl Est GFR ( Amer) 10 Est GFR (Non-Af Amer) 8 POC Glucose (mg/dL) (65-110) mg/dL Random Glucose 91 (70-110) mg/dL Calcium 8.2 L (8.4-10.5) mg/dL Phosphorus 7.1 H (2.5-4.5) mg/dL Magnesium 2.0 (1.7-2.2) mg/dL Total Bilirubin 0.9 (0.2-1.3) mg/dL AST 28 (14-36) U/L ALT 22 (7-56) U/L Alkaline Phosphatase 222 H (38-126) U/L Lactate Dehydrogenase (333-699) U/L Total Creatine Kinase (35-230) U/L Troponin I ng/mL Total Protein 7.4 (5.8-8.3) g/dL Albumin 3.1 (3.0-4.8) g/dL Globulin 4.3 gm/dL Albumin/Globulin Ratio 0.7 L (1.1-1.8) Triglycerides 98 (35-160) mg/dL Cholesterol 57 L (130-200) mg/dL LDL Cholesterol Direct 31 (0-129) mg/dL HDL Cholesterol 21 L (29-60) mg/dL TSH 3rd Generation 7.79 H (0.46-4.68) mIU/mL Arterial Blood Potassium (3.6-5.2) mmol/L Venous Blood Potassium (3.6-5.2) mmol/L Salicylates (2.0-20.0) mg/dL Acetaminophen (10.0-20.0) ug/ml Alcohol, Quantitative (0-10) mg/dL 12/09/17 12/08/17 12/08/17 Range/Units 03:41 21:59 20:45 WBC (4.5-11.0) 10^3/ul RBC (3.5-6.1) 10^6/uL Hgb (12.0-16.0) g/dL Hct (36.0-48.0) % MCV (80.0-105.0) fl MCH (25.0-35.0) pg MCHC (31.0-37.0) g/dl RDW (11.5-14.5) % Plt Count (120.0-450.0) 10^3/uL MPV (7.0-11.0) fl Gran % (50.0-68.0) % Lymph % (Auto) (22.0-35.0) % [place] % (Auto) (1.0-6.0) % Eos % (Auto) (1.5-5.0) % Baso % (Auto) (0.0-3.0) % Gran # (1.4-6.5) Lymph # (Auto) (1.2-3.4) [place] # (Auto) (0.1-0.6) Eos # (Auto) (0.0-0.7) Baso # (Auto) (0.0-2.0) K/mm3 Neutrophils % (Manual) (50.0-70.0) % Lymphocytes % (Manual) (22.0-35.0) % Monocytes % (Manual) (1.0-6.0) % Platelet Evaluation (NORMAL) Anisocytosis (manual) Macrocytosis (manual) pCO2 74 H* (35-45) mm/Hg pO2 107.0 H (80-100) mm/Hg HCO3 27.6 (21-28) mmol/L ABG pH 7.18 L* (7.35-7.45) ABG Total CO2 29.9 H (22-28) mmol.L ABG O2 Saturation 98.7 H (95-98) % ABG O2 Content (15-23) ML/dl ABG Base Excess -2.6 L (-2.0-3.0) mmol/L ABG Hemoglobin (11.7-17.4) g/dL ABG Carboxyhemoglobin (0.5-1.5) % POC ABG HHb (Measured) (0-5) % ABG Methemoglobin (0.0-3.0) % ABG O2 Capacity (16-24) mL/dl ABG Potassium 3.9 (3.6-5.2) mmol/L VBG pH (7.32-7.43) VBG pCO2 (40-60) VBG HCO3 (21-28) mmol/l VBG Total CO2 (22-28) mmol.L VBG O2 Sat (Calc) (40-65) % VBG Base Excess (0.0-2.0) mmol/L VBG Potassium (3.6-5.2) mmol/L Hgb O2 Saturation (95.0-98.0) % Glucose 96 (65-105) mg/dl Lactate 1.1 (0.7-2.1) mmol/L FiO2 50.0 % Sodium 135.0 (132-148) mmol/L Potassium (3.6-5.0) mmol/L Chloride 100.0 (98-107) mmol/L Carbon Dioxide (21-33) mmol/L Anion Gap (10-20) BUN (7-21) mg/dL Creatinine (0.7-1.2) mg/dl Est GFR ( Amer) Est GFR (Non-Af Amer) POC Glucose (mg/dL) 88 95 (65-110) mg/dL Random Glucose (70-110) mg/dL Calcium (8.4-10.5) mg/dL Phosphorus (2.5-4.5) mg/dL Magnesium (1.7-2.2) mg/dL Total Bilirubin (0.2-1.3) mg/dL AST (14-36) U/L ALT (7-56) U/L Alkaline Phosphatase (38-126) U/L Lactate Dehydrogenase (333-699) U/L Total Creatine Kinase (35-230) U/L Troponin I ng/mL Total Protein (5.8-8.3) g/dL Albumin (3.0-4.8) g/dL Globulin gm/dL Albumin/Globulin Ratio (1.1-1.8) Triglycerides (35-160) mg/dL Cholesterol (130-200) mg/dL LDL Cholesterol Direct (0-129) mg/dL HDL Cholesterol (29-60) mg/dL TSH 3rd Generation (0.46-4.68) mIU/mL Arterial Blood Potassium 3.9 (3.6-5.2) mmol/L Venous Blood Potassium (3.6-5.2) mmol/L Salicylates (2.0-20.0) mg/dL Acetaminophen (10.0-20.0) ug/ml Alcohol, Quantitative (0-10) mg/dL 12/08/17 12/08/17 12/08/17 Range/Units 19:30 15:26 13:13 WBC (4.5-11.0) 10^3/ul RBC (3.5-6.1) 10^6/uL Hgb (12.0-16.0) g/dL Hct (36.0-48.0) % MCV (80.0-105.0) fl MCH (25.0-35.0) pg MCHC (31.0-37.0) g/dl RDW (11.5-14.5) % Plt Count (120.0-450.0) 10^3/uL MPV (7.0-11.0) fl Gran % (50.0-68.0) % Lymph % (Auto) (22.0-35.0) % [place] % (Auto) (1.0-6.0) % Eos % (Auto) (1.5-5.0) % Baso % (Auto) (0.0-3.0) % Gran # (1.4-6.5) Lymph # (Auto) (1.2-3.4) [place] # (Auto) (0.1-0.6) Eos # (Auto) (0.0-0.7) Baso # (Auto) (0.0-2.0) K/mm3 Neutrophils % (Manual) (50.0-70.0) % Lymphocytes % (Manual) (22.0-35.0) % Monocytes % (Manual) (1.0-6.0) % Platelet Evaluation (NORMAL) Anisocytosis (manual) Macrocytosis (manual) pCO2 85 H* (35-45) mm/Hg pO2 50 73.0 L (80-100) mm/Hg HCO3 28.9 H (21-28) mmol/L ABG pH 7.14 L* (7.35-7.45) ABG Total CO2 31.5 H (22-28) mmol.L ABG O2 Saturation 94.0 L (95-98) % ABG O2 Content 15.6 (15-23) ML/dl ABG Base Excess -2.0 (-2.0-3.0) mmol/L ABG Hemoglobin 12.1 (11.7-17.4) g/dL ABG Carboxyhemoglobin 2.5 H (0.5-1.5) % POC ABG HHb (Measured) 5.8 H (0-5) % ABG Methemoglobin 0.4 (0.0-3.0) % ABG O2 Capacity 16.6 (16-24) mL/dl ABG Potassium (3.6-5.2) mmol/L VBG pH 7.19 L* (7.32-7.43) VBG pCO2 77.0 H* (40-60) VBG HCO3 29.4 H (21-28) mmol/l VBG Total CO2 31.8 H (22-28) mmol.L VBG O2 Sat (Calc) 84.4 H (40-65) % VBG Base Excess -0.9 L (0.0-2.0) mmol/L VBG Potassium 4.2 (3.6-5.2) mmol/L Hgb O2 Saturation 91.4 L (95.0-98.0) % Glucose 114 H (65-105) mg/dl Lactate 1.6 (0.7-2.1) mmol/L FiO2 21.0 32.0 % Sodium 135.0 (132-148) mmol/L Potassium (3.6-5.0) mmol/L Chloride 97.0 L (98-107) mmol/L Carbon Dioxide (21-33) mmol/L Anion Gap (10-20) BUN (7-21) mg/dL Creatinine (0.7-1.2) mg/dl Est GFR ( Amer) Est GFR (Non-Af Amer) POC Glucose (mg/dL) 127 H (65-110) mg/dL Random Glucose (70-110) mg/dL Calcium (8.4-10.5) mg/dL Phosphorus (2.5-4.5) mg/dL Magnesium (1.7-2.2) mg/dL Total Bilirubin (0.2-1.3) mg/dL AST (14-36) U/L ALT (7-56) U/L Alkaline Phosphatase (38-126) U/L Lactate Dehydrogenase (333-699) U/L Total Creatine Kinase (35-230) U/L Troponin I ng/mL Total Protein (5.8-8.3) g/dL Albumin (3.0-4.8) g/dL Globulin gm/dL Albumin/Globulin Ratio (1.1-1.8) Triglycerides (35-160) mg/dL Cholesterol (130-200) mg/dL LDL Cholesterol Direct (0-129) mg/dL HDL Cholesterol (29-60) mg/dL TSH 3rd Generation (0.46-4.68) mIU/mL Arterial Blood Potassium (3.6-5.2) mmol/L Venous Blood Potassium 4.2 (3.6-5.2) mmol/L Salicylates (2.0-20.0) mg/dL Acetaminophen (10.0-20.0) ug/ml Alcohol, Quantitative (0-10) mg/dL 12/08/17 12/08/17 12/08/17 Range/Units 11:30 10:50 10:50 WBC (4.5-11.0) 10^3/ul RBC (3.5-6.1) 10^6/uL Hgb (12.0-16.0) g/dL Hct (36.0-48.0) % MCV (80.0-105.0) fl MCH (25.0-35.0) pg MCHC (31.0-37.0) g/dl RDW (11.5-14.5) % Plt Count (120.0-450.0) 10^3/uL MPV (7.0-11.0) fl Gran % (50.0-68.0) % Lymph % (Auto) (22.0-35.0) % [place] % (Auto) (1.0-6.0) % Eos % (Auto) (1.5-5.0) % Baso % (Auto) (0.0-3.0) % Gran # (1.4-6.5) Lymph # (Auto) (1.2-3.4) [place] # (Auto) (0.1-0.6) Eos # (Auto) (0.0-0.7) Baso # (Auto) (0.0-2.0) K/mm3 Neutrophils % (Manual) (50.0-70.0) % Lymphocytes % (Manual) (22.0-35.0) % Monocytes % (Manual) (1.0-6.0) % Platelet Evaluation (NORMAL) Anisocytosis (manual) Macrocytosis (manual) pCO2 (35-45) mm/Hg pO2 (80-100) mm/Hg HCO3 (21-28) mmol/L ABG pH (7.35-7.45) ABG Total CO2 (22-28) mmol.L ABG O2 Saturation (95-98) % ABG O2 Content (15-23) ML/dl ABG Base Excess (-2.0-3.0) mmol/L ABG Hemoglobin (11.7-17.4) g/dL ABG Carboxyhemoglobin (0.5-1.5) % POC ABG HHb (Measured) (0-5) % ABG Methemoglobin (0.0-3.0) % ABG O2 Capacity (16-24) mL/dl ABG Potassium (3.6-5.2) mmol/L VBG pH (7.32-7.43) VBG pCO2 (40-60) VBG HCO3 (21-28) mmol/l VBG Total CO2 (22-28) mmol.L VBG O2 Sat (Calc) (40-65) % VBG Base Excess (0.0-2.0) mmol/L VBG Potassium (3.6-5.2) mmol/L Hgb O2 Saturation (95.0-98.0) % Glucose (65-105) mg/dl Lactate (0.7-2.1) mmol/L FiO2 % Sodium 136 (132-148) mmol/L Potassium 4.4 (3.6-5.0) mmol/L Chloride 95 L (98-107) mmol/L Carbon Dioxide 30 (21-33) mmol/L Anion Gap 16 (10-20) BUN 28 H (7-21) mg/dL Creatinine 5.0 H (0.7-1.2) mg/dl Est GFR ( Amer) 10 Est GFR (Non-Af Amer) 8 POC Glucose (mg/dL) (65-110) mg/dL Random Glucose 179 H (70-110) mg/dL Calcium 8.5 (8.4-10.5) mg/dL Phosphorus 7.3 H (2.5-4.5) mg/dL Magnesium 2.1 (1.7-2.2) mg/dL Total Bilirubin 0.9 (0.2-1.3) mg/dL AST 34 (14-36) U/L ALT 25 (7-56) U/L Alkaline Phosphatase 237 H (38-126) U/L Lactate Dehydrogenase 526 (333-699) U/L Total Creatine Kinase 115 (35-230) U/L Troponin I 0.08 D ng/mL Total Protein 8.2 (5.8-8.3) g/dL Albumin 3.6 (3.0-4.8) g/dL Globulin 4.6 gm/dL Albumin/Globulin Ratio 0.8 L (1.1-1.8) Triglycerides (35-160) mg/dL Cholesterol (130-200) mg/dL LDL Cholesterol Direct (0-129) mg/dL HDL Cholesterol (29-60) mg/dL TSH 3rd Generation 10.80 H (0.46-4.68) mIU/mL Arterial Blood Potassium (3.6-5.2) mmol/L Venous Blood Potassium (3.6-5.2) mmol/L Salicylates < 1 L (2.0-20.0) mg/dL Acetaminophen < 10.0 L (10.0-20.0) ug/ml Alcohol, Quantitative < 10 (0-10) mg/dL 12/08/17 Range/Units 09:36 WBC (4.5-11.0) 10^3/ul RBC (3.5-6.1) 10^6/uL Hgb (12.0-16.0) g/dL Hct (36.0-48.0) % MCV (80.0-105.0) fl MCH (25.0-35.0) pg MCHC (31.0-37.0) g/dl RDW (11.5-14.5) % Plt Count (120.0-450.0) 10^3/uL MPV (7.0-11.0) fl Gran % (50.0-68.0) % Lymph % (Auto) (22.0-35.0) % [place] % (Auto) (1.0-6.0) % Eos % (Auto) (1.5-5.0) % Baso % (Auto) (0.0-3.0) % Gran # (1.4-6.5) Lymph # (Auto) (1.2-3.4) [place] # (Auto) (0.1-0.6) Eos # (Auto) (0.0-0.7) Baso # (Auto) (0.0-2.0) K/mm3 Neutrophils % (Manual) (50.0-70.0) % Lymphocytes % (Manual) (22.0-35.0) % Monocytes % (Manual) (1.0-6.0) % Platelet Evaluation (NORMAL) Anisocytosis (manual) Macrocytosis (manual) pCO2 (35-45) mm/Hg pO2 (80-100) mm/Hg HCO3 (21-28) mmol/L ABG pH (7.35-7.45) ABG Total CO2 (22-28) mmol.L ABG O2 Saturation (95-98) % ABG O2 Content (15-23) ML/dl ABG Base Excess (-2.0-3.0) mmol/L ABG Hemoglobin (11.7-17.4) g/dL ABG Carboxyhemoglobin (0.5-1.5) % POC ABG HHb (Measured) (0-5) % ABG Methemoglobin (0.0-3.0) % ABG O2 Capacity (16-24) mL/dl ABG Potassium (3.6-5.2) mmol/L VBG pH (7.32-7.43) VBG pCO2 (40-60) VBG HCO3 (21-28) mmol/l VBG Total CO2 (22-28) mmol.L VBG O2 Sat (Calc) (40-65) % VBG Base Excess (0.0-2.0) mmol/L VBG Potassium (3.6-5.2) mmol/L Hgb O2 Saturation (95.0-98.0) % Glucose (65-105) mg/dl Lactate (0.7-2.1) mmol/L FiO2 % Sodium (132-148) mmol/L Potassium (3.6-5.0) mmol/L Chloride (98-107) mmol/L Carbon Dioxide (21-33) mmol/L Anion Gap (10-20) BUN (7-21) mg/dL Creatinine (0.7-1.2) mg/dl Est GFR ( Amer) Est GFR (Non-Af Amer) POC Glucose (mg/dL) 203 H (65-110) mg/dL Random Glucose (70-110) mg/dL Calcium (8.4-10.5) mg/dL Phosphorus (2.5-4.5) mg/dL Magnesium (1.7-2.2) mg/dL Total Bilirubin (0.2-1.3) mg/dL AST (14-36) U/L ALT (7-56) U/L Alkaline Phosphatase (38-126) U/L Lactate Dehydrogenase (333-699) U/L Total Creatine Kinase (35-230) U/L Troponin I ng/mL Total Protein (5.8-8.3) g/dL Albumin (3.0-4.8) g/dL Globulin gm/dL Albumin/Globulin Ratio (1.1-1.8) Triglycerides (35-160) mg/dL Cholesterol (130-200) mg/dL LDL Cholesterol Direct (0-129) mg/dL HDL Cholesterol (29-60) mg/dL TSH 3rd Generation (0.46-4.68) mIU/mL Arterial Blood Potassium (3.6-5.2) mmol/L Venous Blood Potassium (3.6-5.2) mmol/L Salicylates (2.0-20.0) mg/dL Acetaminophen (10.0-20.0) ug/ml Alcohol, Quantitative (0-10) mg/dL Laboratory Results - last 24 hr 12/08/17 12/08/17 12/08/17 09:36 10:50 10:50 WBC RBC Hgb Hct MCV MCH MCHC RDW Plt Count MPV Gran % Lymph % (Auto) [place] % (Auto) Eos % (Auto) Baso % (Auto) Gran # Lymph # (Auto) [place] # (Auto) Eos # (Auto) Baso # (Auto) Neutrophils % (Manual) Lymphocytes % (Manual) Monocytes % (Manual) Platelet Evaluation Anisocytosis (manual) Macrocytosis (manual) pCO2 pO2 HCO3 ABG pH ABG Total CO2 ABG O2 Saturation ABG O2 Content ABG Base Excess ABG Hemoglobin ABG Carboxyhemoglobin POC ABG HHb (Measured) ABG Methemoglobin ABG O2 Capacity ABG Potassium VBG pH VBG pCO2 VBG HCO3 VBG Total CO2 VBG O2 Sat (Calc) VBG Base Excess VBG Potassium Hgb O2 Saturation Glucose Lactate FiO2 Sodium Potassium Chloride Carbon Dioxide Anion Gap BUN Creatinine Est GFR ( Amer) Est GFR (Non-Af Amer) POC Glucose (mg/dL) 203 H Random Glucose Calcium Phosphorus Magnesium Total Bilirubin AST ALT Alkaline Phosphatase Lactate Dehydrogenase Total Creatine Kinase Troponin I Total Protein Albumin Globulin Albumin/Globulin Ratio Triglycerides Cholesterol LDL Cholesterol Direct HDL Cholesterol TSH 3rd Generation 10.80 H Arterial Blood Potassium Venous Blood Potassium Salicylates < 1 L Acetaminophen < 10.0 L Alcohol, Quantitative < 10 12/08/17 12/08/17 12/08/17 11:30 13:13 15:26 WBC RBC Hgb Hct MCV MCH MCHC RDW Plt Count MPV Gran % Lymph % (Auto) [place] % (Auto) Eos % (Auto) Baso % (Auto) Gran # Lymph # (Auto) [place] # (Auto) Eos # (Auto) Baso # (Auto) Neutrophils % (Manual) Lymphocytes % (Manual) Monocytes % (Manual) Platelet Evaluation Anisocytosis (manual) Macrocytosis (manual) pCO2 85 H* pO2 73.0 L HCO3 28.9 H ABG pH 7.14 L* ABG Total CO2 31.5 H ABG O2 Saturation 94.0 L ABG O2 Content 15.6 ABG Base Excess -2.0 ABG Hemoglobin 12.1 ABG Carboxyhemoglobin 2.5 H POC ABG HHb (Measured) 5.8 H ABG Methemoglobin 0.4 ABG O2 Capacity 16.6 ABG Potassium VBG pH VBG pCO2 VBG HCO3 VBG Total CO2 VBG O2 Sat (Calc) VBG Base Excess VBG Potassium Hgb O2 Saturation 91.4 L Glucose Lactate FiO2 32.0 Sodium 136 Potassium 4.4 Chloride 95 L Carbon Dioxide 30 Anion Gap 16 BUN 28 H Creatinine 5.0 H Est GFR ( Amer) 10 Est GFR (Non-Af Amer) 8 POC Glucose (mg/dL) 127 H Random Glucose 179 H Calcium 8.5 Phosphorus 7.3 H Magnesium 2.1 Total Bilirubin 0.9 AST 34 ALT 25 Alkaline Phosphatase 237 H Lactate Dehydrogenase 526 Total Creatine Kinase 115 Troponin I 0.08 D Total Protein 8.2 Albumin 3.6 Globulin 4.6 Albumin/Globulin Ratio 0.8 L Triglycerides Cholesterol LDL Cholesterol Direct HDL Cholesterol TSH 3rd Generation Arterial Blood Potassium Venous Blood Potassium Salicylates Acetaminophen Alcohol, Quantitative 12/08/17 12/08/17 12/08/17 19:30 20:45 21:59 WBC RBC Hgb Hct MCV MCH MCHC RDW Plt Count MPV Gran % Lymph % (Auto) [place] % (Auto) Eos % (Auto) Baso % (Auto) Gran # Lymph # (Auto) [place] # (Auto) Eos # (Auto) Baso # (Auto) Neutrophils % (Manual) Lymphocytes % (Manual) Monocytes % (Manual) Platelet Evaluation Anisocytosis (manual) Macrocytosis (manual) pCO2 74 H* pO2 50 107.0 H HCO3 27.6 ABG pH 7.18 L* ABG Total CO2 29.9 H ABG O2 Saturation 98.7 H ABG O2 Content ABG Base Excess -2.6 L ABG Hemoglobin ABG Carboxyhemoglobin POC ABG HHb (Measured) ABG Methemoglobin ABG O2 Capacity ABG Potassium 3.9 VBG pH 7.19 L* VBG pCO2 77.0 H* VBG HCO3 29.4 H VBG Total CO2 31.8 H VBG O2 Sat (Calc) 84.4 H VBG Base Excess -0.9 L VBG Potassium 4.2 Hgb O2 Saturation Glucose 114 H 96 Lactate 1.6 1.1 FiO2 21.0 50.0 Sodium 135.0 135.0 Potassium Chloride 97.0 L 100.0 Carbon Dioxide Anion Gap BUN Creatinine Est GFR ( Amer) Est GFR (Non-Af Amer) POC Glucose (mg/dL) 95 Random Glucose Calcium Phosphorus Magnesium Total Bilirubin AST ALT Alkaline Phosphatase Lactate Dehydrogenase Total Creatine Kinase Troponin I Total Protein Albumin Globulin Albumin/Globulin Ratio Triglycerides Cholesterol LDL Cholesterol Direct HDL Cholesterol TSH 3rd Generation Arterial Blood Potassium 3.9 Venous Blood Potassium 4.2 Salicylates Acetaminophen Alcohol, Quantitative 12/09/17 12/09/17 12/09/17 03:41 05:20 05:20 WBC 8.4 RBC 3.01 L Hgb 10.9 L Hct 36.1 MCV 119.9 H D MCH 36.2 H MCHC 30.2 L RDW 16.7 H Plt Count 141 MPV 10.8 Gran % 92.0 H Lymph % (Auto) 6.8 L [place] % (Auto) 1.2 Eos % (Auto) 0.0 L Baso % (Auto) 0.0 Gran # 7.71 H Lymph # (Auto) 0.6 L [place] # (Auto) 0.1 Eos # (Auto) 0.0 Baso # (Auto) 0.00 Neutrophils % (Manual) 94 H Lymphocytes % (Manual) 5 L Monocytes % (Manual) 1 Platelet Evaluation Normal Anisocytosis (manual) 1+ Macrocytosis (manual) 1+ pCO2 pO2 HCO3 ABG pH ABG Total CO2 ABG O2 Saturation ABG O2 Content ABG Base Excess ABG Hemoglobin ABG Carboxyhemoglobin POC ABG HHb (Measured) ABG Methemoglobin ABG O2 Capacity ABG Potassium VBG pH VBG pCO2 VBG HCO3 VBG Total CO2 VBG O2 Sat (Calc) VBG Base Excess VBG Potassium Hgb O2 Saturation Glucose Lactate FiO2 Sodium 136 Potassium 4.8 Chloride 98 Carbon Dioxide 26 Anion Gap 17 BUN 32 H Creatinine 5.3 H Est GFR ( Amer) 10 Est GFR (Non-Af Amer) 8 POC Glucose (mg/dL) 88 Random Glucose 91 Calcium 8.2 L Phosphorus 7.1 H Magnesium 2.0 Total Bilirubin 0.9 AST 28 ALT 22 Alkaline Phosphatase 222 H Lactate Dehydrogenase Total Creatine Kinase Troponin I Total Protein 7.4 Albumin 3.1 Globulin 4.3 Albumin/Globulin Ratio 0.7 L Triglycerides 98 Cholesterol 57 L LDL Cholesterol Direct 31 HDL Cholesterol 21 L TSH 3rd Generation Arterial Blood Potassium Venous Blood Potassium Salicylates Acetaminophen Alcohol, Quantitative 12/09/17 05:20 WBC RBC Hgb Hct MCV MCH MCHC RDW Plt Count MPV Gran % Lymph % (Auto) [place] % (Auto) Eos % (Auto) Baso % (Auto) Gran # Lymph # (Auto) [place] # (Auto) Eos # (Auto) Baso # (Auto) Neutrophils % (Manual) Lymphocytes % (Manual) Monocytes % (Manual) Platelet Evaluation Anisocytosis (manual) Macrocytosis (manual) pCO2 pO2 HCO3 ABG pH ABG Total CO2 ABG O2 Saturation ABG O2 Content ABG Base Excess ABG Hemoglobin ABG Carboxyhemoglobin POC ABG HHb (Measured) ABG Methemoglobin ABG O2 Capacity ABG Potassium VBG pH VBG pCO2 VBG HCO3 VBG Total CO2 VBG O2 Sat (Calc) VBG Base Excess VBG Potassium Hgb O2 Saturation Glucose Lactate FiO2 Sodium Potassium Chloride Carbon Dioxide Anion Gap BUN Creatinine Est GFR ( Amer) Est GFR (Non-Af Amer) POC Glucose (mg/dL) Random Glucose Calcium Phosphorus Magnesium Total Bilirubin AST ALT Alkaline Phosphatase Lactate Dehydrogenase Total Creatine Kinase Troponin I Total Protein Albumin Globulin Albumin/Globulin Ratio Triglycerides Cholesterol LDL Cholesterol Direct HDL Cholesterol TSH 3rd Generation 7.79 H Arterial Blood Potassium Venous Blood Potassium Salicylates Acetaminophen Alcohol, Quantitative EKG/Cardiology Studies: Cardiology / EKG Studies 12/09/17 07:00 ELECTROCARDIOGRAM Routine Comment: A Fib Reason For Exam: CAD PRE OP:: N Does Patient Have a Pacemaker?: No Fingerstick Blood Sugar Results: 95 Review of Systems - Review of Systems Review of Systems: per HPI Assessment/Plan - Assessment and Plan (Free Text) Assessment: 72 y/o F with PMHx of ESRD on HD, CAD s/p stent with lifevest, DM, HTN presented to [facility] [place] with complaints of back pain after she had sat down. History is limited as patient is non-verbal. ABG done in ER showed hypercapnic respiratory acididosis. BiPAP was subsequently started in ED. Pt was also seen to have pneumonia on xray. Empiric antibiotics were started. Pt was hypotensive in ED with BPs in the upper 60s/40. She was started on 1L bolus of fluids. Pt admitted to ICU for hypotension/AMS. Pt followed by cardiology, nephrology, pulmonology and ID. Per nephro recs, pt to undergo HD today to clear fluid. Plan: Neuro: Awake, alert. Pt not answering questions Neuro consult: Dr. Hensley GCS [address] Head MRI: pt has pacemaker Cardio: BP: Hypotensive, 68/42 in ED. Improved to 90s/70s after 1L bolus. BP 90s/50s this AM with MAP @57 HR 90s Maintain MAP >65 Xopenex to prevent rapid atrial rate Midodrine 5mg po tid Milrinone drip per pulm recs CAD: Hold antihypertensives/b-blockers Continue to monitor May consider vasopressors Repeat echocardiogram Resp: Hypercapnic respiratory acidosis: 7.14/85/73/29 Repeat ABG w/shock panel 7.18/74/107/27 Chest xray (12/08/17): "RLL infiltrate inseparable from R pleural effusion" Aztreonam Vancomycin/Gentamicin x 1 dose ID Consult: Dr. Gonzales (Known to pt) Duoneb treatments q2H prn Solu-medrol 40mg IVP q12h Maintain 02 sat >90% HOB 30 degrees GI: Distended Continue with protonix Abd Xray 12/09/17: Moderate small bowel distention at the central abdomen is identified with moderate amount of large bowel gas. Developing ileus not completely excluded nor would early small-bowel obstruction be excluded at this time. Further clinical correlation advised. Follow-up radiography recommended /Renal: ESRD on HD BUN/Cr below baseline Pt had missed last HD session Consult Nephrology: Dr. Snow Replace lytes Maintain euvolemia Continue to monitor Per Dr. Mack: pt may need to start levophed for hypotension Endocrine: Hx of DM Maintain euglycemia Fingersticks q6h Heme: Macrocytic anemia at baseline platelets stable continue to monitor ID Continue aztreonam F/u panculture Will consider cefepime despite penicillin if condition worsens DVT/GI PPx: Hep/Protonix <Santos Garrett - Last Filed: 12/09/17 12:45> CCU Objective - Vital Signs / Intake & Output Vital Signs (Last 4 hours): Vital Signs Pulse BP 12/09/17 11:32 95 H 84/48 L 12/09/17 09:03 98 H Intake and Output (Last 8hrs): Intake & Output 12/08/17 12/09/17 12/09/17 22:59 06:59 14:59 Intake Total 628 Output Total 0 Balance 628 Weight 160 lb 172 lb 14.4 oz Intake: IV 578 Left Antecubital 578 Oral 50 Output: Urine 0 Urine, Voided 0 - Medications Active Medications: Active Medications Generic Name Dose Route Start Last Admin Trade Name Freq PRN Reason Stop Dose Admin Albumin Human 12.5 gm 12/09/17 11:30 Albumin Human 25% (12.5 Gm/50 Ml) IV 12/11/17 11:31 ONCE AUGUSTIN Albuterol/Ipratropium 3 ml 12/08/17 14:37 Duoneb 3 Mg/0.5 Mg (3 Ml) Ud IH Q2H PRN Shortness of Breath Heparin Sodium (Porcine) 5,000 units 12/08/17 22:00 12/09/17 11:32 Heparin SC 5,000 units Q12 AUGUSTIN Administration Protocol Aztreonam 500 mg/ Sodium 100 mls @ 100 mls/hr 12/08/17 22:00 12/09/17 06:15 Chloride IVPB 100 mls/hr Q8 AUGUSTIN Administration Protocol Milrinone Lactate/Dextrose 100 mls @ 4.355 mls/hr 12/08/17 22:27 12/09/17 00:17 Primacor 20mg/100ml D5w IV 0.2 mcg/kg/min .[id number] PRN 4.355 mls/hr TITRATE PER MD ORDER Administration Protocol 0.2 MCG/KG/MIN Methylprednisolone 40 mg 12/08/17 22:00 12/09/17 11:31 Solu-Medrol IVP 40 mg Q12 AUGUSTIN Administration Metoprolol Tartrate 25 mg 12/08/17 18:00 12/09/17 11:32 Lopressor PO Not Given BID [facility], [facility]–1983 Midodrine 10 mg 12/09/17 12:35 Proamatine PO TID [facility], [facility]1983 Pantoprazole Sodium 40 mg 12/08/17 16:30 12/08/17 19:07 Protonix Inj IVP 40 mg DAILY AUGUSTIN Administration Sevelamer HCl 1,600 mg 12/09/17 14:00 Renagel PO TID AUGUSTIN - Patient Studies Lab Studies: Microbiology Studies 12/08/17 10:50 Blood Culture - Preliminary Blood-Venous NO GROWTH AFTER 24 HOURS Lab Studies 12/09/17 12/09/17 12/09/17 Range/Units 05:20 05:20 05:20 WBC (4.5-11.0) 10^3/ul RBC (3.5-6.1) 10^6/uL Hgb (12.0-16.0) g/dL Hct (36.0-48.0) % MCV (80.0-105.0) fl MCH (25.0-35.0) pg MCHC (31.0-37.0) g/dl RDW (11.5-14.5) % Plt Count (120.0-450.0) 10^3/uL MPV (7.0-11.0) fl Gran % (50.0-68.0) % Lymph % (Auto) (22.0-35.0) % [place] % (Auto) (1.0-6.0) % Eos % (Auto) (1.5-5.0) % Baso % (Auto) (0.0-3.0) % Gran # (1.4-6.5) Lymph # (Auto) (1.2-3.4) [place] # (Auto) (0.1-0.6) Eos # (Auto) (0.0-0.7) Baso # (Auto) (0.0-2.0) K/mm3 Neutrophils % (Manual) (50.0-70.0) % Lymphocytes % (Manual) (22.0-35.0) % Monocytes % (Manual) (1.0-6.0) % Platelet Evaluation (NORMAL) Anisocytosis (manual) Macrocytosis (manual) pCO2 (35-45) mm/Hg pO2 (80-100) mm/Hg HCO3 (21-28) mmol/L ABG pH (7.35-7.45) ABG Total CO2 (22-28) mmol.L ABG O2 Saturation (95-98) % ABG O2 Content (15-23) ML/dl ABG Base Excess (-2.0-3.0) mmol/L ABG Hemoglobin (11.7-17.4) g/dL ABG Carboxyhemoglobin (0.5-1.5) % POC ABG HHb (Measured) (0-5) % ABG Methemoglobin (0.0-3.0) % ABG O2 Capacity (16-24) mL/dl ABG Potassium (3.6-5.2) mmol/L VBG pH (7.32-7.43) VBG pCO2 (40-60) VBG HCO3 (21-28) mmol/l VBG Total CO2 (22-28) mmol.L VBG O2 Sat (Calc) (40-65) % VBG Base Excess (0.0-2.0) mmol/L VBG Potassium (3.6-5.2) mmol/L Hgb O2 Saturation (95.0-98.0) % Sodium 136 (132-148) mmol/L Chloride 98 (98-107) mmol/L Glucose (65-105) mg/dl Lactate (0.7-2.1) mmol/L FiO2 % Potassium 4.8 (3.6-5.0) mmol/L Carbon Dioxide 26 (21-33) mmol/L Anion Gap 17 (10-20) BUN 32 H (7-21) mg/dL Creatinine 5.3 H (0.7-1.2) mg/dl Est GFR ( Amer) 10 Est GFR (Non-Af Amer) 8 POC Glucose (mg/dL) (65-110) mg/dL Random Glucose 91 (70-110) mg/dL Hemoglobin A1c 7.2 H (4.2-6.5) % Calcium 8.2 L (8.4-10.5) mg/dL Phosphorus 7.1 H (2.5-4.5) mg/dL Magnesium 2.0 (1.7-2.2) mg/dL Total Bilirubin 0.9 (0.2-1.3) mg/dL AST 28 (14-36) U/L ALT 22 (7-56) U/L Alkaline Phosphatase 222 H (38-126) U/L Total Protein 7.4 (5.8-8.3) g/dL Albumin 3.1 (3.0-4.8) g/dL Globulin 4.3 gm/dL Albumin/Globulin Ratio 0.7 L (1.1-1.8) Triglycerides 98 (35-160) mg/dL Cholesterol 57 L (130-200) mg/dL LDL Cholesterol Direct 31 (0-129) mg/dL HDL Cholesterol 21 L (29-60) mg/dL TSH 3rd Generation 7.79 H (0.46-4.68) mIU/mL Arterial Blood Potassium (3.6-5.2) mmol/L Venous Blood Potassium (3.6-5.2) mmol/L 12/09/17 12/09/17 12/08/17 Range/Units 05:20 03:41 21:59 WBC 8.4 (4.5-11.0) 10^3/ul RBC 3.01 L (3.5-6.1) 10^6/uL Hgb 10.9 L (12.0-16.0) g/dL Hct 36.1 (36.0-48.0) % MCV 119.9 H D (80.0-105.0) fl MCH 36.2 H (25.0-35.0) pg MCHC 30.2 L (31.0-37.0) g/dl RDW 16.7 H (11.5-14.5) % Plt Count 141 (120.0-450.0) 10^3/uL MPV 10.8 (7.0-11.0) fl Gran % 92.0 H (50.0-68.0) % Lymph % (Auto) 6.8 L (22.0-35.0) % [place] % (Auto) 1.2 (1.0-6.0) % Eos % (Auto) 0.0 L (1.5-5.0) % Baso % (Auto) 0.0 (0.0-3.0) % Gran # 7.71 H (1.4-6.5) Lymph # (Auto) 0.6 L (1.2-3.4) [place] # (Auto) 0.1 (0.1-0.6) Eos # (Auto) 0.0 (0.0-0.7) Baso # (Auto) 0.00 (0.0-2.0) K/mm3 Neutrophils % (Manual) 94 H (50.0-70.0) % Lymphocytes % (Manual) 5 L (22.0-35.0) % Monocytes % (Manual) 1 (1.0-6.0) % Platelet Evaluation Normal (NORMAL) Anisocytosis (manual) 1+ Macrocytosis (manual) 1+ pCO2 (35-45) mm/Hg pO2 (80-100) mm/Hg HCO3 (21-28) mmol/L ABG pH (7.35-7.45) ABG Total CO2 (22-28) mmol.L ABG O2 Saturation (95-98) % ABG O2 Content (15-23) ML/dl ABG Base Excess (-2.0-3.0) mmol/L ABG Hemoglobin (11.7-17.4) g/dL ABG Carboxyhemoglobin (0.5-1.5) % POC ABG HHb (Measured) (0-5) % ABG Methemoglobin (0.0-3.0) % ABG O2 Capacity (16-24) mL/dl ABG Potassium (3.6-5.2) mmol/L VBG pH (7.32-7.43) VBG pCO2 (40-60) VBG HCO3 (21-28) mmol/l VBG Total CO2 (22-28) mmol.L VBG O2 Sat (Calc) (40-65) % VBG Base Excess (0.0-2.0) mmol/L VBG Potassium (3.6-5.2) mmol/L Hgb O2 Saturation (95.0-98.0) % Sodium (132-148) mmol/L Chloride (98-107) mmol/L Glucose (65-105) mg/dl Lactate (0.7-2.1) mmol/L FiO2 % Potassium (3.6-5.0) mmol/L Carbon Dioxide (21-33) mmol/L Anion Gap (10-20) BUN (7-21) mg/dL Creatinine (0.7-1.2) mg/dl Est GFR ( Amer) Est GFR (Non-Af Amer) POC Glucose (mg/dL) 88 95 (65-110) mg/dL Random Glucose (70-110) mg/dL Hemoglobin A1c (4.2-6.5) % Calcium (8.4-10.5) mg/dL Phosphorus (2.5-4.5) mg/dL Magnesium (1.7-2.2) mg/dL Total Bilirubin (0.2-1.3) mg/dL AST (14-36) U/L ALT (7-56) U/L Alkaline Phosphatase (38-126) U/L Total Protein (5.8-8.3) g/dL Albumin (3.0-4.8) g/dL Globulin gm/dL Albumin/Globulin Ratio (1.1-1.8) Triglycerides (35-160) mg/dL Cholesterol (130-200) mg/dL LDL Cholesterol Direct (0-129) mg/dL HDL Cholesterol (29-60) mg/dL TSH 3rd Generation (0.46-4.68) mIU/mL Arterial Blood Potassium (3.6-5.2) mmol/L Venous Blood Potassium (3.6-5.2) mmol/L 12/08/17 12/08/17 12/08/17 Range/Units 20:45 19:30 15:26 WBC (4.5-11.0) 10^3/ul RBC (3.5-6.1) 10^6/uL Hgb (12.0-16.0) g/dL Hct (36.0-48.0) % MCV (80.0-105.0) fl MCH (25.0-35.0) pg MCHC (31.0-37.0) g/dl RDW (11.5-14.5) % Plt Count (120.0-450.0) 10^3/uL MPV (7.0-11.0) fl Gran % (50.0-68.0) % Lymph % (Auto) (22.0-35.0) % [place] % (Auto) (1.0-6.0) % Eos % (Auto) (1.5-5.0) % Baso % (Auto) (0.0-3.0) % Gran # (1.4-6.5) Lymph # (Auto) (1.2-3.4) [place] # (Auto) (0.1-0.6) Eos # (Auto) (0.0-0.7) Baso # (Auto) (0.0-2.0) K/mm3 Neutrophils % (Manual) (50.0-70.0) % Lymphocytes % (Manual) (22.0-35.0) % Monocytes % (Manual) (1.0-6.0) % Platelet Evaluation (NORMAL) Anisocytosis (manual) Macrocytosis (manual) pCO2 74 H* (35-45) mm/Hg pO2 107.0 H 50 (80-100) mm/Hg HCO3 27.6 (21-28) mmol/L ABG pH 7.18 L* (7.35-7.45) ABG Total CO2 29.9 H (22-28) mmol.L ABG O2 Saturation 98.7 H (95-98) % ABG O2 Content (15-23) ML/dl ABG Base Excess -2.6 L (-2.0-3.0) mmol/L ABG Hemoglobin (11.7-17.4) g/dL ABG Carboxyhemoglobin (0.5-1.5) % POC ABG HHb (Measured) (0-5) % ABG Methemoglobin (0.0-3.0) % ABG O2 Capacity (16-24) mL/dl ABG Potassium 3.9 (3.6-5.2) mmol/L VBG pH 7.19 L* (7.32-7.43) VBG pCO2 77.0 H* (40-60) VBG HCO3 29.4 H (21-28) mmol/l VBG Total CO2 31.8 H (22-28) mmol.L VBG O2 Sat (Calc) 84.4 H (40-65) % VBG Base Excess -0.9 L (0.0-2.0) mmol/L VBG Potassium 4.2 (3.6-5.2) mmol/L Hgb O2 Saturation (95.0-98.0) % Sodium 135.0 135.0 (132-148) mmol/L Chloride 100.0 97.0 L (98-107) mmol/L Glucose 96 114 H (65-105) mg/dl Lactate 1.1 1.6 (0.7-2.1) mmol/L FiO2 50.0 21.0 % Potassium (3.6-5.0) mmol/L Carbon Dioxide (21-33) mmol/L Anion Gap (10-20) BUN (7-21) mg/dL Creatinine (0.7-1.2) mg/dl Est GFR ( Amer) Est GFR (Non-Af Amer) POC Glucose (mg/dL) 127 H (65-110) mg/dL Random Glucose (70-110) mg/dL Hemoglobin A1c (4.2-6.5) % Calcium (8.4-10.5) mg/dL Phosphorus (2.5-4.5) mg/dL Magnesium (1.7-2.2) mg/dL Total Bilirubin (0.2-1.3) mg/dL AST (14-36) U/L ALT (7-56) U/L Alkaline Phosphatase (38-126) U/L Total Protein (5.8-8.3) g/dL Albumin (3.0-4.8) g/dL Globulin gm/dL Albumin/Globulin Ratio (1.1-1.8) Triglycerides (35-160) mg/dL Cholesterol (130-200) mg/dL LDL Cholesterol Direct (0-129) mg/dL HDL Cholesterol (29-60) mg/dL TSH 3rd Generation (0.46-4.68) mIU/mL Arterial Blood Potassium 3.9 (3.6-5.2) mmol/L Venous Blood Potassium 4.2 (3.6-5.2) mmol/L 12/08/17 Range/Units 13:13 WBC (4.5-11.0) 10^3/ul RBC (3.5-6.1) 10^6/uL Hgb (12.0-16.0) g/dL Hct (36.0-48.0) % MCV (80.0-105.0) fl MCH (25.0-35.0) pg MCHC (31.0-37.0) g/dl RDW (11.5-14.5) % Plt Count (120.0-450.0) 10^3/uL MPV (7.0-11.0) fl Gran % (50.0-68.0) % Lymph % (Auto) (22.0-35.0) % [place] % (Auto) (1.0-6.0) % Eos % (Auto) (1.5-5.0) % Baso % (Auto) (0.0-3.0) % Gran # (1.4-6.5) Lymph # (Auto) (1.2-3.4) [place] # (Auto) (0.1-0.6) Eos # (Auto) (0.0-0.7) Baso # (Auto) (0.0-2.0) K/mm3 Neutrophils % (Manual) (50.0-70.0) % Lymphocytes % (Manual) (22.0-35.0) % Monocytes % (Manual) (1.0-6.0) % Platelet Evaluation (NORMAL) Anisocytosis (manual) Macrocytosis (manual) pCO2 85 H* (35-45) mm/Hg pO2 73.0 L (80-100) mm/Hg HCO3 28.9 H (21-28) mmol/L ABG pH 7.14 L* (7.35-7.45) ABG Total CO2 31.5 H (22-28) mmol.L ABG O2 Saturation 94.0 L (95-98) % ABG O2 Content 15.6 (15-23) ML/dl ABG Base Excess -2.0 (-2.0-3.0) mmol/L ABG Hemoglobin 12.1 (11.7-17.4) g/dL ABG Carboxyhemoglobin 2.5 H (0.5-1.5) % POC ABG HHb (Measured) 5.8 H (0-5) % ABG Methemoglobin 0.4 (0.0-3.0) % ABG O2 Capacity 16.6 (16-24) mL/dl ABG Potassium (3.6-5.2) mmol/L VBG pH (7.32-7.43) VBG pCO2 (40-60) VBG HCO3 (21-28) mmol/l VBG Total CO2 (22-28) mmol.L VBG O2 Sat (Calc) (40-65) % VBG Base Excess (0.0-2.0) mmol/L VBG Potassium (3.6-5.2) mmol/L Hgb O2 Saturation 91.4 L (95.0-98.0) % Sodium (132-148) mmol/L Chloride (98-107) mmol/L Glucose (65-105) mg/dl Lactate (0.7-2.1) mmol/L FiO2 32.0 % Potassium (3.6-5.0) mmol/L Carbon Dioxide (21-33) mmol/L Anion Gap (10-20) BUN (7-21) mg/dL Creatinine (0.7-1.2) mg/dl Est GFR ( Amer) Est GFR (Non-Af Amer) POC Glucose (mg/dL) (65-110) mg/dL Random Glucose (70-110) mg/dL Hemoglobin A1c (4.2-6.5) % Calcium (8.4-10.5) mg/dL Phosphorus (2.5-4.5) mg/dL Magnesium (1.7-2.2) mg/dL Total Bilirubin (0.2-1.3) mg/dL AST (14-36) U/L ALT (7-56) U/L Alkaline Phosphatase (38-126) U/L Total Protein (5.8-8.3) g/dL Albumin (3.0-4.8) g/dL Globulin gm/dL Albumin/Globulin Ratio (1.1-1.8) Triglycerides (35-160) mg/dL Cholesterol (130-200) mg/dL LDL Cholesterol Direct (0-129) mg/dL HDL Cholesterol (29-60) mg/dL TSH 3rd Generation (0.46-4.68) mIU/mL Arterial Blood Potassium (3.6-5.2) mmol/L Venous Blood Potassium (3.6-5.2) mmol/L Laboratory Results - last 24 hr 12/08/17 12/08/17 12/08/17 13:13 15:26 19:30 WBC RBC Hgb Hct MCV MCH MCHC RDW Plt Count MPV Gran % Lymph % (Auto) [place] % (Auto) Eos % (Auto) Baso % (Auto) Gran # Lymph # (Auto) [place] # (Auto) Eos # (Auto) Baso # (Auto) Neutrophils % (Manual) Lymphocytes % (Manual) Monocytes % (Manual) Platelet Evaluation Anisocytosis (manual) Macrocytosis (manual) pCO2 85 H* pO2 73.0 L 50 HCO3 28.9 H ABG pH 7.14 L* ABG Total CO2 31.5 H ABG O2 Saturation 94.0 L ABG O2 Content 15.6 ABG Base Excess -2.0 ABG Hemoglobin 12.1 ABG Carboxyhemoglobin 2.5 H POC ABG HHb (Measured) 5.8 H ABG Methemoglobin 0.4 ABG O2 Capacity 16.6 ABG Potassium VBG pH 7.19 L* VBG pCO2 77.0 H* VBG HCO3 29.4 H VBG Total CO2 31.8 H VBG O2 Sat (Calc) 84.4 H VBG Base Excess -0.9 L VBG Potassium 4.2 Hgb O2 Saturation 91.4 L Sodium 135.0 Chloride 97.0 L Glucose 114 H Lactate 1.6 FiO2 32.0 21.0 Potassium Carbon Dioxide Anion Gap BUN Creatinine Est GFR ( Amer) Est GFR (Non-Af Amer) POC Glucose (mg/dL) 127 H Random Glucose Hemoglobin A1c Calcium Phosphorus Magnesium Total Bilirubin AST ALT Alkaline Phosphatase Total Protein Albumin Globulin Albumin/Globulin Ratio Triglycerides Cholesterol LDL Cholesterol Direct HDL Cholesterol TSH 3rd Generation Arterial Blood Potassium Venous Blood Potassium 4.2 12/08/17 12/08/17 12/09/17 20:45 21:59 03:41 WBC RBC Hgb Hct MCV MCH MCHC RDW Plt Count MPV Gran % Lymph % (Auto) [place] % (Auto) Eos % (Auto) Baso % (Auto) Gran # Lymph # (Auto) [place] # (Auto) Eos # (Auto) Baso # (Auto) Neutrophils % (Manual) Lymphocytes % (Manual) Monocytes % (Manual) Platelet Evaluation Anisocytosis (manual) Macrocytosis (manual) pCO2 74 H* pO2 107.0 H HCO3 27.6 ABG pH 7.18 L* ABG Total CO2 29.9 H ABG O2 Saturation 98.7 H ABG O2 Content ABG Base Excess -2.6 L ABG Hemoglobin ABG Carboxyhemoglobin POC ABG HHb (Measured) ABG Methemoglobin ABG O2 Capacity ABG Potassium 3.9 VBG pH VBG pCO2 VBG HCO3 VBG Total CO2 VBG O2 Sat (Calc) VBG Base Excess VBG Potassium Hgb O2 Saturation Sodium 135.0 Chloride 100.0 Glucose 96 Lactate 1.1 FiO2 50.0 Potassium Carbon Dioxide Anion Gap BUN Creatinine Est GFR ( Amer) Est GFR (Non-Af Amer) POC Glucose (mg/dL) 95 88 Random Glucose Hemoglobin A1c Calcium Phosphorus Magnesium Total Bilirubin AST ALT Alkaline Phosphatase Total Protein Albumin Globulin Albumin/Globulin Ratio Triglycerides Cholesterol LDL Cholesterol Direct HDL Cholesterol TSH 3rd Generation Arterial Blood Potassium 3.9 Venous Blood Potassium 12/09/17 12/09/17 12/09/17 05:20 05:20 05:20 WBC 8.4 RBC 3.01 L Hgb 10.9 L Hct 36.1 MCV 119.9 H D MCH 36.2 H MCHC 30.2 L RDW 16.7 H Plt Count 141 MPV 10.8 Gran % 92.0 H Lymph % (Auto) 6.8 L [place] % (Auto) 1.2 Eos % (Auto) 0.0 L Baso % (Auto) 0.0 Gran # 7.71 H Lymph # (Auto) 0.6 L [place] # (Auto) 0.1 Eos # (Auto) 0.0 Baso # (Auto) 0.00 Neutrophils % (Manual) 94 H Lymphocytes % (Manual) 5 L Monocytes % (Manual) 1 Platelet Evaluation Normal Anisocytosis (manual) 1+ Macrocytosis (manual) 1+ pCO2 pO2 HCO3 ABG pH ABG Total CO2 ABG O2 Saturation ABG O2 Content ABG Base Excess ABG Hemoglobin ABG Carboxyhemoglobin POC ABG HHb (Measured) ABG Methemoglobin ABG O2 Capacity ABG Potassium VBG pH VBG pCO2 VBG HCO3 VBG Total CO2 VBG O2 Sat (Calc) VBG Base Excess VBG Potassium Hgb O2 Saturation Sodium 136 Chloride 98 Glucose Lactate FiO2 Potassium 4.8 Carbon Dioxide 26 Anion Gap 17 BUN 32 H Creatinine 5.3 H Est GFR ( Amer) 10 Est GFR (Non-Af Amer) 8 POC Glucose (mg/dL) Random Glucose 91 Hemoglobin A1c 7.2 H Calcium 8.2 L Phosphorus 7.1 H Magnesium 2.0 Total Bilirubin 0.9 AST 28 ALT 22 Alkaline Phosphatase 222 H Total Protein 7.4 Albumin 3.1 Globulin 4.3 Albumin/Globulin Ratio 0.7 L Triglycerides 98 Cholesterol 57 L LDL Cholesterol Direct 31 HDL Cholesterol 21 L TSH 3rd Generation Arterial Blood Potassium Venous Blood Potassium 12/09/17 05:20 WBC RBC Hgb Hct MCV MCH MCHC RDW Plt Count MPV Gran % Lymph % (Auto) [place] % (Auto) Eos % (Auto) Baso % (Auto) Gran # Lymph # (Auto) [place] # (Auto) Eos # (Auto) Baso # (Auto) Neutrophils % (Manual) Lymphocytes % (Manual) Monocytes % (Manual) Platelet Evaluation Anisocytosis (manual) Macrocytosis (manual) pCO2 pO2 HCO3 ABG pH ABG Total CO2 ABG O2 Saturation ABG O2 Content ABG Base Excess ABG Hemoglobin ABG Carboxyhemoglobin POC ABG HHb (Measured) ABG Methemoglobin ABG O2 Capacity ABG Potassium VBG pH VBG pCO2 VBG HCO3 VBG Total CO2 VBG O2 Sat (Calc) VBG Base Excess VBG Potassium Hgb O2 Saturation Sodium Chloride Glucose Lactate FiO2 Potassium Carbon Dioxide Anion Gap BUN Creatinine Est GFR ( Amer) Est GFR (Non-Af Amer) POC Glucose (mg/dL) Random Glucose Hemoglobin A1c Calcium Phosphorus Magnesium Total Bilirubin AST ALT Alkaline Phosphatase Total Protein Albumin Globulin Albumin/Globulin Ratio Triglycerides Cholesterol LDL Cholesterol Direct HDL Cholesterol TSH 3rd Generation 7.79 H Arterial Blood Potassium Venous Blood Potassium EKG/Cardiology Studies: Cardiology / EKG Studies 12/09/17 07:00 ELECTROCARDIOGRAM Routine Comment: A Fib Reason For Exam: CAD PRE OP:: N Does Patient Have a Pacemaker?: No Assessment/Plan - Assessment and Plan (Free Text) Plan: Patient seen and examined with resident, agree with note with following additions/exceptions: Patient is 72yo female with PMHx of ESRD on HD, MWF, last HD Friday, COPD, dementia, presents from home s/p fall. Pt was noted to be altered and hypotensive in the ER, given 1L NS bolus, with improvement in SBP. Labs, imaging, chart reviewed. ABG with resp acidosis, hypercapnia, placed on BIPAP, with mild improvement in resp acidosis, approrriate BIPAP adjustments made; patient is awake, alert, follows commands. Current SBP 110s, although drops with HD, may need Levophed with HD Severe Sepsis PNA ESRD on HD Hypercapnia Respiratory failure Recommend: - cont with BIPAP as tolerated, repeat ABG, duonebs PRN, IS, Solumedrol 40mg IV q12h - broad spectrum abx, as per ID - panculture, UCx, BCx, Procal, check urine Lg/Strep - Hold BP meds, hold BB - PICC - repeat ECHO - HD as per renal - FS control - GI ppx - DVT ppx - Monitor in MICU Critical care time 30 minutes
[2017-12-09] MEDS ORDERED: Albumin Human 25% (12.5 gm/50 ml) IV ONE (11:24)
[2017-12-09] MEDS: MethylPREDNISolone 40 mg Vial IVP SCH ×2 (11:31→21:17)
--- NOTE | 2017-12-09 11:49 | RAD ---
Date of service: 12/09/2017 HISTORY: abdominal distention and bruising COMPARISON: No prior. FINDINGS: BOWEL: There is moderate distention of small-bowel loops in the central abdomen with gas at identified moderately in various large-bowel loops including a mild amount of the distal rectosigmoid. The appearance is nonspecific. No large free intrarenal gas collections identified and surgical clips in the right upper quadrant abdomen. Telemetry leads obscure midline upper abdomen. BONES: Advanced multilevel degenerative disc disease is seen at the lumbar spine inferiorly with degenerative sacroiliac and hip joint changes appreciated as well. OTHER FINDINGS: None. IMPRESSION: Nonspecific bowel bowel gas pattern as described above. Moderate small bowel distention at the central abdomen is identified with moderate amount of large bowel gas. Developing ileus not completely excluded nor would early small-bowel obstruction be excluded at this time. Further clinical correlation advised. Follow-up radiography recommended.
[2017-12-09] MEDS: Albumin Human 25% (12.5 gm/50 ml) IV SCH (12:26)
[2017-12-09] MEDS ORDERED: NOREPINEPHRINE BIT/0.9 % NACL 4 MG/250 ML BAG IV ONE (12:32)
[2017-12-09] MEDS ORDERED: NOREPINEPHRINE BIT/0.9 % NACL 4 MG/250 ML BAG IV PRN (12:48)
--- NOTE | 2017-12-09 14:27 | PN ---
DATE: 12/09/2017 SUBJECTIVE: The patient is currently seen in CCU, bed 6. She remains severely hypotensive on dialysis. She remains on ProAmatine for her cardiomyopathy. We did discuss with the polytechnic registrar and the house staff, hemodialysis staff and nursing staff the possibility of adding Levophed so that we could ultrafiltrate her with dialysis. The patient appears to be congested and short of breath. MEDICATIONS: Medication list reviewed. The patient is currently on Azactam, DuoNeb, heparin, Lopressor, Primacor, ProAmatine, Protonix and Solu-Medrol. OBJECTIVE: INTAKE/OUTPUT: Intake is 620, output is 0. VITAL SIGNS: Present blood pressure on dialysis is 72/44. Pulse is 95. Temperature is 98. Respiratory rate is 22 with a pulse ox of 92%. HEENT: Shows her to be normocephalic, atraumatic. Conjunctivae remain pink. Sclerae are nonicteric. NECK: Supple. No neck vein distention. CHEST: Scattered rhonchi and rales. No wheezing. Positive LifeVest in place. CARDIAC: S1, S2 are regular. Positive MR/TR. No S3, no S4, no rub. ABDOMEN: Moderately obese. Mild distention. Soft, nontender. Bowel sounds are normal. No rebound, guarding or masses noted. EXTREMITIES: Show trace pitting edema of her lower extremity bilaterally. The right chest wall PermCath being used for dialysis. NEUROLOGIC: Shows her to be alert, but very confused. LABORATORY DATA AND IMAGING: Admitting chest x-ray showed a right lower lobe infiltrate with congestion. CBC, white blood cell count 8.4, hemoglobin 10.9 with a platelet count of 141,000. Coags are normal. Blood gas from yesterday 7.18 with pCO2 of 74 and a pO2 of 107. No blood gases done today. Chemistries today showed normal electrolytes. BUN 32 with a creatinine of 5.3. Calcium 8.2 with albumin of 3.1, corrects to normal. Phosphorus is elevated at 7.1. Magnesium level is 2. Troponins negative. TSH mildly elevated at 7.79. Microbiology, blood cultures are negative at 24 hours. ASSESSMENT: 1. Increased shortness of breath in part secondary to congestive heart failure and in part secondary to possible pneumonia. In part secondary to cardiomyopathy with the inability to remove fluid secondary to hypotension. Discussed with ICU polytechnic registrar, residents, hemodialysis staff and CCU nursing staff. No choice other than to start pressor therapy in addition to Primacor. We need to improve her blood pressure in order to be able to ultrafiltrate her. If we do not ultrafiltrate her, the patient will likely be intubated later today because of her declining respiratory status. 2. Hypotension. In part secondary to cardiomyopathy. 3. History of asthma with possible chronic obstructive pulmonary disease. The patient will continue appropriate inhalation therapy and steroids. 4. End-stage renal disease. The patient is presently now on a Friday, , Friday dialysis schedule switched from Friday, Friday, Friday. 5. History of arteriosclerotic heart disease, status post percutaneous transluminal coronary angioplasty, stents, history of cardiomyopathy with mitral regurgitation, tricuspid regurgitation. Ejection fraction reported to be in the 30% range, down from 50-55% seen earlier this year. This is from an echocardiogram done in [facility] ([facility] The patient has a LifeVest in place. There was consideration of placing an AICD, but this was not done. The patient is being followed by Cardiology. 6. History of anemia secondary to chronic kidney disease. Hemoglobin levels remained stable at 10.9. Aranesp per protocol on dialysis. 7. Secondary hyperparathyroidism. We will start the patient back on binder therapy and once she starts eating a renal diet. The patient had been on Renagel/Renvela and this will be restarted. PLAN: 1. Possibility of starting Levophed as soon as possible in order to be able to allow for ultrafiltration with dialysis today. 2. Continue ProAmatine, I will increase dose to 10 mg three times a day. 3. Lengthy discussion regarding her care with all involved parties as noted above. 4. If we are unable to ultrafiltrate the patient today, the patient will receive a dialysis treatment again tomorrow. 5. Continue antibiotic therapy for possible right lower lobe pneumonia. 6. Continue to monitor the patient closely in the CCU setting. 7. Greater than 35 minutes spent in the care of this critically ill patient. Nishant Mack MD MTDD
--- NOTE | 2017-12-09 16:35 | PN ---
DATE: 12/09/2017 REASON FOR CONSULTATION: Paroxysmal atrial fibrillation, cardiomyopathy, coronary artery disease, on LifeVest, admitted with altered mental status. SUBJECTIVE: The patient is in ICU, much awake and alert, and answering all questions. Information obtained through the housekeeping cleaner. The patient is much awake and alert and oriented. PHYSICAL EXAMINATION: As follows: VITAL SIGNS: Temperature afebrile, heart rate 98, blood pressure . HEENT: PERRLA. Extraocular muscles intact. NECK: Supple. No carotid bruits. No thyromegaly. CHEST: Clear to auscultation. HEART: S1 and S2 regular. ABDOMEN: Soft. EXTREMITIES: Clubbing and cyanosis negative. LABORATORY DATA: Blood workup as follows: WBC 8.5, hemoglobin 10.9, hematocrit 36.1, platelet count 141. Chemistry showed sodium 130, potassium 4.8, chloride 97, CO2 of 32, anion gap of 17, BUN 32, creatinine 5.3. IMPRESSION: A 72-year-old female with past medical history significant for diabetes; hypertension; hyperlipidemia, end-stage renal disease, on dialysis, hypertension, history of coronary artery disease, status post stent five years ago, being followed by [facility], Dr. Motta. Recently, the patient had seen Dr. De La O, accounting office manager at [facility] and plan was to do automatic implantable cardioverter defibrillator, but could not do because of the possible pleural effusion, possible pulmonary edema as per daughter and with the LifeVest. Admitted yesterday with altered mental status, on dialysis. Today the patient's mentation is significantly improved, getting dialysis, currently on Primacor and the LifeVest. RECOMMENDATIONS: Continue dialysis. Continue broad-spectrum antibiotics as mentioned yesterday to rule out sepsis. We will get echo to assess the LV function. Further recommendation with the hospital course. We will follow with you. Needs aggressive dialysis. Needs aggressive antibiotics. We will follow with you. Thank you Dr. House for providing us the opportunity in taking care of the patient. Continue LifeVest. Joss Bah MD
--- NOTE | 2017-12-09 17:34 | PN ---
DATE: 12/09/2017 NEUROLOGY FOLLOWUP CHIEF COMPLAINT: Follow up for altered mental status. SUBJECTIVE: The patient is seen and examined at the bedside. She is mildly confused, but awake and alert. Responding much better to questions as compared to yesterday. She underwent hemodialysis this morning. She had low systolic and diastolic blood pressures and has underlying sepsis from right lower lobe pneumonia, is on antibiotics. She is also on BiPAP. She had hypercapnic respiratory failure. PAST MEDICAL HISTORY: History of end-stage renal disease, on hemodialysis; diabetes; hypertension; coronary artery disease, status post coronary artery stent. SOCIAL HISTORY: No illicit drug use, smoking or EtOH abuse. ALLERGIES: ALLERGIC TO FISH, MORPHINE, OXYCODONE, PENICILLIN, STEROIDS. REVIEW OF SYSTEMS: Fourteen-point review of systems is negative except as per the HPI. FAMILY HISTORY: Noncontributory. LABORATORY: Blood gas: PCO2 is 74, pO2 is 107, pH is 7.18. Sodium is 136, potassium is 4.8, chloride of 98, carbon dioxide of 26, BUN of 32, creatinine 4.3, random glucose of 91, A1c of 77.2. PHYSICAL EXAMINATION: VITAL SIGNS: Temperature 98, pulse rate of 97, blood pressure of 128/91, respiratory rate of 26 on BiPAP, oxygen saturation 98% by nasal cannula. GENERAL: The patient is sitting up in bed, in no acute distress. Lethargic. HEENT: Atraumatic, normocephalic. PERRLA. Extraocular muscles intact. LUNGS: Decreased breath sounds bilaterally, scattered rhonchi. HEART: S1 and S2. Normal rate and rhythm. No murmurs, rubs or gallops. ABDOMEN: Soft, nontender and nondistended. Bowel sounds are present. EXTREMITIES: No clubbing. No cyanosis. Peripheral pulses 2+ felt bilaterally. NEUROLOGIC: The patient is lethargic. Following all simple commands. Oriented to person and self. Speech is hypophonic. No aphasia noted. Cranial nerves II through XII intact. Motor exam: Slightly increased tone throughout. Moves all extremities equally. No pronator drift seen. Sensory exam: Withdraws to localized and noxious stimulus. DTRs are 2+ throughout, 1 at both knees and absent at the ankles. Toes are downgoing bilaterally. Coordination: Gait is deferred for now. ASSESSMENT AND PLAN: This is a 72-year-old woman with history of type 2 diabetes mellitus; hypertension; end-stage renal disease, on hemodialysis and asthma, who came in for altered mental status and lethargy. Found to have hypercapnic respiratory failure in addition to underlying sepsis from right lower lobe pneumonia. Altered mental status is secondary to toxic metabolic encephalopathy. At this time, recommend, 1. Correct the hypercapnia with underlying bilevel positive airway pressure. 2. Continue on antibiotics for underlying sepsis, right lower lobe pneumonia. 3. Monitor electrolytes and correct accordingly. 4. Keep blood sugars between 140-180. 5. Keep her blood pressure between systolic 130s-140s and diastolic 70-80s. Awaiting CAT scan of the head. Once again, thank you for this followup. Dario Hensley MD
--- NOTE | 2017-12-09 17:54 | CT ---
Date of service: 12/09/2017 PROCEDURE: CT HEAD WITHOUT CONTRAST. HISTORY: AMS COMPARISON: Noncontrast head CT performed 11/13/16 TECHNIQUE: Axial computed tomography images were obtained through the head/brain without intravenous contrast. Radiation dose: Total exam DLP = 1014.36 mGy-cm. This CT exam was performed using one or more of the following dose reduction techniques: Automated exposure control, adjustment of the mA and/or kV according to patient size, and/or use of iterative reconstruction technique. FINDINGS: Images markedly degraded by patient motion. HEMORRHAGE: No intracranial hemorrhage. BRAIN: Diffuse atrophy with prominence of the ventricles and sulci noted. No mass effect or edema. Dense intracranial atherosclerosis. Scattered periventricular and subcortical white matter hypodensities, which are nonspecific, but often seen with chronic microvascular ischemic disease. Please note that MRI with diffusion imaging is more sensitive in the detection of acute ischemic event. VENTRICLES: No hydrocephalus. CALVARIUM: Unremarkable. PARANASAL SINUSES: Limited visualization due to motion; opacification of the right maxillary sinus. MASTOID AIR CELLS: Limited visualization. Opacification bilateral mastoid air cells. Correlate clinically for mastoiditis. OTHER FINDINGS: None. IMPRESSION: Examination degraded by patient motion. Generalized atrophy. Nonspecific white matter changes. Opacification/fluid bilateral mastoid air cells; correlate for mastoiditis. Poorly visualized opacification of the right maxillary sinus.
--- NOTE | 2017-12-09 20:47 | CP.PCM.PN ---
Subjective - Date & Time of Evaluation Date of Evaluation: 12/09/17 Time of Evaluation: 19:00 - Subjective Subjective: Infectious Disease Follow Up: December 09, 2017 72 yo [place]inamese speaking female presenting [place] [facility] with back pain on sitting down. Patient was found to be hypotensive in ER. The patient has an extensive medical history that includes ESRD on HD, CAD, CHF with EF of 35%, occluded heart vessels, DM, HTN, and ischemic cardiomyopathy. The patient is unable to provide any additional information at this time. Daughter is at bedside. Blood pressure improved after 1L fluid bolus yesterday. The patient is awake and alert but confused. She can follow commands. Received HD today. Objective - Vital Signs/Intake and Output Vital Signs (last 24 hours): Temp Pulse Resp BP Pulse Ox 98 F 91 H 42 H 77/42 L 92 L 12/09/17 06:00 12/09/17 18:33 12/09/17 16:10 12/09/17 18:33 12/09/17 16:10 Intake and Output: 12/09/17 12/10/17 18:59 06:59 Intake Total 190 Output Total 1200 Balance -1010 - Medications Medications: Current Medications Albumin Human (Albumin Human 25% (12.5 Gm/50 Ml)) 12.5 gm IV ONCE AUGUSTIN Stop: 12/11/17 11:31 Last Admin: 12/09/17 12:26 Dose: 12.5 gm Albuterol/Ipratropium (Duoneb 3 Mg/0.5 Mg (3 Ml) Ud) 3 ml IH Q2H PRN PRN Reason: Shortness of Breath Heparin Sodium (Porcine) (Heparin) 5,000 units SC Q12 [facility]; Protocol Last Admin: 12/09/17 11:32 Dose: 5,000 units Aztreonam 500 mg/ Sodium (Chloride) 100 mls @ 100 mls/hr IVPB Q8 [facility]; Protocol Last Admin: 12/09/17 14:50 Dose: 100 mls/hr Milrinone Lactate/Dextrose (Primacor 20mg/100ml D5w) 100 mls @ 4.355 mls/hr IV .[id number] PRN; Protocol PRN Reason: TITRATE PER MD ORDER Last Admin: 12/09/17 00:17 Dose: 0.2 mcg/kg/min, 4.355 mls/hr NOREPINEPHRINE BIT/0.9 % NACL (Levophed 4 Mg/ 250 Ml Ns Premixed) 4 mg in 250 mls @ 15 mls/hr IV .[id number] PRN; Protocol PRN Reason: TITRATE PER MD ORDER Last Titration: 12/09/17 15:50 Dose: 0 mcg/min, 0 mls/hr Methylprednisolone (Solu-Medrol) 40 mg IVP Q12 [facility] Last Admin: 12/09/17 11:31 Dose: 40 mg Metoprolol Tartrate (Lopressor) 25 mg PO BID [facility] Last Admin: 12/09/17 18:33 Dose: Not Given Midodrine (Proamatine) 10 mg PO TID [facility] Last Admin: 12/09/17 18:23 Dose: 10 mg Pantoprazole Sodium (Protonix Inj) 40 mg IVP DAILY [facility] Last Admin: 12/09/17 18:32 Dose: 40 mg Sevelamer HCl (Renagel) 1,600 mg PO TID [facility] Last Admin: 12/09/17 18:32 Dose: 1,600 mg - Labs Labs: 12/09/17 05:20 12/09/17 05:20 - Constitutional Appears: Toxic, No Acute Distress, Chronically Ill - Head Exam Head Exam: ATRAUMATIC, NORMOCEPHALIC - Eye Exam Eye Exam: EOMI, PERRL Pupil Exam: NORMAL ACCOMODATION, PERRL - ENT Exam ENT Exam: Mucous Membranes Moist, Normal External Ear Exam, TM's Normal Bilaterally - Neck Exam Neck Exam: Full ROM, Normal Inspection - Respiratory Exam Respiratory Exam: Decreased Breath Sounds, Wheezes. absent: Rales, Rhonchi, Respiratory Distress - Cardiovascular Exam Cardiovascular Exam: REGULAR RHYTHM, RRR, +S1, +S2 - GI/Abdominal Exam GI & Abdominal Exam: Distended, Soft. absent: Tenderness - Extremities Exam Extremities Exam: Normal Inspection. absent: Joint Swelling, Pedal Edema - Neurological Exam Additional comments: AAO x 0-1 at this time. Was initially hypotensive. - Skin Skin Exam: Dry, Intact, Warm Assessment and Plan - Assessment and Plan (Free Text) Assessment: 72 yo female known to me from previous hospitalizations to [facility]. The patient with initial complaint of back pain on sitting down . Found to be hypotensiive at this time. Antibiotics and fluids started. The patient is more awake and alert compared to admission. Blood pressure has improved with 1L of fluids. Started on Aztreonam for antibiotic coverage with single dose of Va ncomycin IV and Gentamicin IV. Nam cultures sent. No leukocytosis. Supportive care. Case discussed with Dr. Garrett. If there is continued worsening, will have to consider use of Cefepime despite PCN allergy. Awaiting culture results. The patient is awake and alert now but confused. The patient can follow commands. Not hypotensive at this time. Cultures with no growth at this time. Maintain Broad antibiotic coverage at this time. Supportive care. Thank you for allowing me to participate in the care of this patient, we will follow with you.
[2017-12-09] MEDS: Albuterol-Ipratrop 3 mg / 0.5 (3 ml) UD IH PRN (23:19)
[2017-12-10] MEDS ORDERED: DiphenhydrAMINE 50 mg/ml Inj IVP STA ×3 (00:14→23:41)
--- NOTE | 2017-12-10 01:27 | PN ---
DATE: 12/09/2017 PULMONARY CRITICAL CARE PROGRESS NOTE REFERRING PHYSICIAN: Taylor House MD SUBJECTIVE: Overnight events noted. Family is at bedside. I spoke to the nursing staff. She is on nasal cannula. Much more comfortable, but confused. Has some cough, shortness of breath. No nausea. No vomiting. No diarrhea. Does have a leg swelling. PHYSICAL EXAMINATION GENERAL: In no acute distress. VITAL SIGNS: Temperature is 98, heart rate is 91, respiratory rate is 20 to 30, blood pressure 128/91, pulse ox is 93% on nasal cannula. HEENT: Small oral cavity. Crowded airway. Mallampati score is 4. NECK: Short thick neck. LUNGS: Has a prolonged expiratory phase and few rhonchi. HEART: S1 and S2, tachycardic. ABDOMEN: Soft, obese, nontender, no organomegaly. EXTREMITIES: Does have edema. NEUROLOGIC: Awake and alert, legally blind. Does not follow commands. MEDICATIONS: She is on given with dialysis, aztreonam 500 mg every 8 hours, DuoNeb every 12 hours p.r.n., heparin 5000 units subcu every 12 hour, she is on Levophed briefly while on dialysis, metoprolol tartarate 25 mg twice a day, Primacor has been discontinued, midodrine 10 mg three times a day, Protonix 40 mg daily, Renagel 1600 mg three times a day, Solu-Medrol 40 mg every 12 hours. LABORATORY DATA: Shows hemoglobin 10.9, hematocrit 33.1, WBC 8.4, and platelet is 141. Sodium 136, potassium 4.8, chloride 98, bicarbonate 26, BUN 32, creatinine 5.3, glucose 80, calcium 8.2, phosphorus 7.1, magnesium 2.0, AST 28, ALT 22, alk phos is 222, albumin 3.1, cholesterol 57, and TSH 7.79. MICROBIOLOGY: Blood culture and naris cultures are unremarkable. Her EKG done this morning shows heart rate is 92, sinus rhythm with APCs. Her abdominal x-ray done this morning, which shows nonspecific bowel gas pattern, more small bowel distention in the center of the abdomen and there is large bowel gas, cannot rule out ileus. IMPRESSION AND PLAN: Respiratory failure with CO2 retention and hypoxemia, requiring noninvasive ventilation, acute on chronic failure, right lower lobe pneumonia; chronic obstructive lung disease; renal failure; dialysis dependent; pulmonary hypertension; cardiomyopathy; coronary artery disease; diabetes and ileus. Case discussed with the family. I also spoke to the nursing staff. She did not tolerate the Primacor, it dropped blood pressure and was discontinued. Spoke to the nursing staff, cut down supplement oxygen to 2 liters and titrate to only pulse ox 90 and not above. May place back on BiPAP while sleeping. Continue steroids. Continue antibiotics. Continue gastric prophylaxis. SCDs to lower extremities. We will give Dulcolax suppository on a daily basis. Followup lab in the morning. Critical care time, I spent more than 35 minutes. Thank you and we will follow with you. Joss Arias MD
[2017-12-10 08:18] LABS: GRAN # 5.52 (1.4-6.5); GRAN % 85.6 % (50.0-68.0); LYMPH # 0.5 (1.2-3.4); LYMPH % 8.2 % (22.0-35.0); MEAN CORPUSCULAR HEMOGLOBIN 36.7 pg (25.0-35.0); MEAN CORPUSCULAR HGB CONC 30.3 g/dl (31.0-37.0); MEAN PLATELET VOLUME 10.1 fl (7.0-11.0); MONO # 0.4 (0.1-0.6); MONO % 6.2 % (1.0-6.0); RED CELL DISTRIBUTION WIDTH 17.6 % (11.5-14.5); WHITE BLOOD COUNT 6.5 10^3/ul (4.5-11.0)
[2017-12-10 08:25] LABS: ALB/GLOB RATIO 0.8 (1.1-1.8); ALBUMIN 3.6 g/dL (3.0-4.8); CALCIUM 8.8 mg/dL (8.4-10.5)
--- NOTE | 2017-12-10 08:41 | CP.CCUPN ---
<Ryder Alamo - Last Filed: 12/10/17 11:50> CCU Subjective - Physician Review Subjective (Free Text): CRITICAL CARE PROGRESS NOTE FOR DR. LI Alamo PGY-1 Pt seen and examined at bedside this am. Pt is more alert and oriented than yesterday. AxO x 3 today. States she doesn't feel well. She reports pain in her lungs and difficulty breathing. Denies abdominal pain. Other ROS is negative. CCU Objective - Vital Signs / Intake & Output Vital Signs (Last 4 hours): Vital Signs Pulse 12/10/17 06:00 96 H Intake and Output (Last 8hrs): Intake & Output 12/09/17 12/10/17 12/10/17 22:59 06:59 14:59 Intake Total 190 400 Output Total 1200 Balance -1010 400 Weight 172 lb 6 oz Intake: IV 130 200 Left Antecubital 100 Left Forearm 200 Oral 60 200 Output: Urine 0 Urine, Voided 0 Other 1200 - Physical Exam Head: Positive for: Atraumatic, Normocephalic Pupils: Positive for: PERRL Extroacular Muscles: Positive for: EOMI Conjunctiva: Positive for: Normal Mouth: Positive for: Moist Mucous Membranes Neck: Positive for: Normal Range of Motion Respiratory/Chest: Positive for: Wheezes. Negative for: Respiratory Distress, Accessory Muscle Use Cardiovascular: Positive for: Regular Rate and Rhythm, Normal S1, S2. Negative for: Murmurs Abdomen: Positive for: Distention. Negative for: Tenderness, Peritoneal Signs, Rebound Back: Positive for: Normal Inspection Upper Extremity: Positive for: Normal Inspection. Negative for: Cyanosis, Edema Lower Extremity: Positive for: Normal Inspection. Negative for: Edema Neurological: Positive for: GCS=15, CN II-XII Intact, Speech Normal Skin: Positive for: Warm, Dry, Normal Color. Negative for: Rashes Psychiatric: Positive for: Alert, Oriented x 3, Normal Insight, Normal Concentration - Medications Active Medications: Active Medications Generic Name Dose Route Start Last Admin Trade Name Freq PRN Reason Stop Dose Admin Albumin Human 12.5 gm 12/09/17 11:30 12/09/17 12:26 Albumin Human 25% (12.5 Gm/50 Ml) IV 12/11/17 11:31 12.5 gm ONCE AUGUSTIN Administration Albuterol/Ipratropium 3 ml 12/08/17 14:37 12/09/17 23:19 Duoneb 3 Mg/0.5 Mg (3 Ml) Ud IH 3 ml Q2H PRN Administration Shortness of Breath Bisacodyl 10 mg 12/10/17 10:00 Dulcolax RC DAILY [facility] Heparin Sodium (Porcine) 5,000 units 12/08/17 22:00 12/09/17 21:24 Heparin SC 5,000 units Q12 [facility]IN Administration Protocol Aztreonam 500 mg/ Sodium 100 mls @ 100 mls/hr 12/08/17 22:00 12/10/17 05:43 Chloride IVPB 100 mls/hr Q8 A[facility]IN Administration Protocol NOREPINEPHRINE BIT/0.9 % NACL 4 mg in 250 mls @ 15 mls/hr 12/09/17 12:48 12/09/17 15:50 Levophed 4 Mg/ 250 Ml Ns Premixed IV 0 mcg/min .[id number] PRN 0 mls/hr TITRATE PER MD ORDER Titration Protocol 4 MCG/MIN Methylprednisolone 40 mg 12/08/17 22:00 12/09/17 21:17 Solu-Medrol IVP 40 mg Q12 [facility]IN Administration Metoprolol Tartrate 25 mg 12/08/17 18:00 12/09/17 18:33 Lopressor PO Not Given BID [facility] Midodrine 10 mg 12/09/17 12:35 12/09/17 18:23 Proamatine PO 10 mg TID [facility]IN Administration Pantoprazole Sodium 40 mg 12/08/17 16:30 12/09/17 18:32 Protonix Inj IVP 40 mg DAILY [facility] Administration Sevelamer HCl 1,600 mg 12/09/17 14:00 12/09/17 18:32 Renagel PO 1,600 mg TID A[facility]IN Administration - Patient Studies Lab Studies: Microbiology Studies 12/08/17 16:25 MRSA Culture (Admit) - Final Naris MRSA NOT DETECTED 12/08/17 13:30 Blood Culture - Preliminary Blood-Venous NO GROWTH AFTER 24 HOURS 12/08/17 10:50 Blood Culture - Preliminary Blood-Venous NO GROWTH AFTER 24 HOURS Lab Studies 12/10/17 12/10/17 12/09/17 Range/Units 07:55 07:55 18:42 WBC 6.5 D (4.5-11.0) 10^3/ul RBC 3.00 L (3.5-6.1) 10^6/uL Hgb 11.0 L (12.0-16.0) g/dL Hct 36.3 (36.0-48.0) % MCV 121.0 H (80.0-105.0) fl MCH 36.7 H (25.0-35.0) pg MCHC 30.3 L (31.0-37.0) g/dl RDW 17.6 H (11.5-14.5) % Plt Count 159 (120.0-450.0) 10^3/uL MPV 10.1 (7.0-11.0) fl Gran % 85.6 H (50.0-68.0) % Lymph % (Auto) 8.2 L (22.0-35.0) % Moca % (Auto) 6.2 H (1.0-6.0) % Eos % (Auto) 0.0 L (1.5-5.0) % Baso % (Auto) 0.0 (0.0-3.0) % Gran # 5.52 (1.4-6.5) Lymph # (Auto) 0.5 L (1.2-3.4) Moca # (Auto) 0.4 (0.1-0.6) Eos # (Auto) 0.0 (0.0-0.7) Baso # (Auto) 0.00 (0.0-2.0) K/mm3 Sodium 137 (132-148) mmol/L Potassium 4.5 (3.6-5.0) mmol/L Chloride 97 L (98-107) mmol/L Carbon Dioxide 26 (21-33) mmol/L Anion Gap 19 (10-20) BUN 25 H (7-21) mg/dL Creatinine 3.4 H (0.7-1.2) mg/dl Est GFR ( Amer) 16 Est GFR (Non-Af Amer) 13 POC Glucose (mg/dL) 80 (65-110) mg/dL Random Glucose 220 H (70-110) mg/dL Hemoglobin A1c (4.2-6.5) % Calcium 8.8 (8.4-10.5) mg/dL Phosphorus 6.1 H (2.5-4.5) mg/dL Magnesium 2.0 (1.7-2.2) mg/dL Total Bilirubin 0.9 (0.2-1.3) mg/dL AST 37 H D (14-36) U/L ALT 23 (7-56) U/L Alkaline Phosphatase 237 H (38-126) U/L Total Protein 7.9 (5.8-8.3) g/dL Albumin 3.6 (3.0-4.8) g/dL Globulin 4.4 gm/dL Albumin/Globulin Ratio 0.8 L (1.1-1.8) 12/09/17 12/09/17 12/09/17 Range/Units 15:59 10:06 05:20 WBC (4.5-11.0) 10^3/ul RBC (3.5-6.1) 10^6/uL Hgb (12.0-16.0) g/dL Hct (36.0-48.0) % MCV (80.0-105.0) fl MCH (25.0-35.0) pg MCHC (31.0-37.0) g/dl RDW (11.5-14.5) % Plt Count (120.0-450.0) 10^3/uL MPV (7.0-11.0) fl Gran % (50.0-68.0) % Lymph % (Auto) (22.0-35.0) % Moca % (Auto) (1.0-6.0) % Eos % (Auto) (1.5-5.0) % Baso % (Auto) (0.0-3.0) % Gran # (1.4-6.5) Lymph # (Auto) (1.2-3.4) Moca # (Auto) (0.1-0.6) Eos # (Auto) (0.0-0.7) Baso # (Auto) (0.0-2.0) K/mm3 Sodium (132-148) mmol/L Potassium (3.6-5.0) mmol/L Chloride (98-107) mmol/L Carbon Dioxide (21-33) mmol/L Anion Gap (10-20) BUN (7-21) mg/dL Creatinine (0.7-1.2) mg/dl Est GFR ( Amer) Est GFR (Non-Af Amer) POC Glucose (mg/dL) 86 85 (65-110) mg/dL Random Glucose (70-110) mg/dL Hemoglobin A1c 7.2 H (4.2-6.5) % Calcium (8.4-10.5) mg/dL Phosphorus (2.5-4.5) mg/dL Magnesium (1.7-2.2) mg/dL Total Bilirubin (0.2-1.3) mg/dL AST (14-36) U/L ALT (7-56) U/L Alkaline Phosphatase (38-126) U/L Total Protein (5.8-8.3) g/dL Albumin (3.0-4.8) g/dL Globulin gm/dL Albumin/Globulin Ratio (1.1-1.8) Laboratory Results - last 24 hr 12/09/17 12/09/17 12/09/17 05:20 10:06 15:59 WBC RBC Hgb Hct MCV MCH MCHC RDW Plt Count MPV Gran % Lymph % (Auto) Moca % (Auto) Eos % (Auto) Baso % (Auto) Gran # Lymph # (Auto) Moca # (Auto) Eos # (Auto) Baso # (Auto) Sodium Potassium Chloride Carbon Dioxide Anion Gap BUN Creatinine Est GFR ( Amer) Est GFR (Non-Af Amer) POC Glucose (mg/dL) 85 86 Random Glucose Hemoglobin A1c 7.2 H Calcium Phosphorus Magnesium Total Bilirubin AST ALT Alkaline Phosphatase Total Protein Albumin Globulin Albumin/Globulin Ratio 12/09/17 12/10/17 12/10/17 18:42 07:55 07:55 WBC 6.5 D RBC 3.00 L Hgb 11.0 L Hct 36.3 MCV 121.0 H MCH 36.7 H MCHC 30.3 L RDW 17.6 H Plt Count 159 MPV 10.1 Gran % 85.6 H Lymph % (Auto) 8.2 L Moca % (Auto) 6.2 H Eos % (Auto) 0.0 L Baso % (Auto) 0.0 Gran # 5.52 Lymph # (Auto) 0.5 L Moca # (Auto) 0.4 Eos # (Auto) 0.0 Baso # (Auto) 0.00 Sodium 137 Potassium 4.5 Chloride 97 L Carbon Dioxide 26 Anion Gap 19 BUN 25 H Creatinine 3.4 H Est GFR ( Amer) 16 Est GFR (Non-Af Amer) 13 POC Glucose (mg/dL) 80 Random Glucose 220 H Hemoglobin A1c Calcium 8.8 Phosphorus 6.1 H Magnesium 2.0 Total Bilirubin 0.9 AST 37 H D ALT 23 Alkaline Phosphatase 237 H Total Protein 7.9 Albumin 3.6 Globulin 4.4 Albumin/Globulin Ratio 0.8 L EKG/Cardiology Studies: Cardiology / EKG Studies 12/10/17 08:35 ELECTROCARDIOGRAM Urgent Comment: Reason For Exam: paf PERFORMING PHYSICIAN/PROVIDER:: Joss Bah Fingerstick Blood Sugar Results: 163 Critical Care Progress Note - Nutrition Nutrition: Nutrition Category Date Time Status Renal Diet [DIET] Diets 12/09/17 Lunch Ordered Assessment/Plan - Assessment and Plan (Free Text) Assessment: 72 y/o F with PMHx of ESRD on HD, CAD s/p stent with lifevest, DM, HTN presented to [facility] [place] [place] with complaints of back pain after she had sat down. History is limited as patient is non-verbal. ABG done in ER showed hypercapnic respiratory acididosis. BiPAP was subsequently started in ED. Pt was also seen to have pneumonia on xray. Empiric antibiotics were started. Pt was hypotensive in ED with BPs in the upper 60s/40. She was started on 1L bolus of fluids. Pt admitted to ICU for hypotension/AMS and septic shock likely secondary to RLL pneumonia. Pt followed by cardiology, nephrology, pulmonology and ID. Per undergoing MWF. HD attempted yesterday. Will attempt HD again today. Plan: Neuro: Awake, alert & oriented x 3. Pt answering questions, more responsive today compared to yesterday. Per family, pt is still not at baseline Neuro consult: Dr. Hensley GCS [address] Head MRI: pt has pacemaker Cardio: BP: Hypotensive. Improved to 90s/50s HR 90s Maintain MAP >65 Xopenex to prevent rapid atrial rate Midodrine 5mg po tid Stop milrinone Currently off of levophed CAD: Hold antihypertensives/b-blockers Continue to monitor BP Repeat echocardiogram pending Resp: Hypercapnic respiratory acidosis: 7.14/85/73/29 Repeat ABG w/shock panel 7.18/74/107/27 Chest xray (12/08/17): "RLL infiltrate inseparable from R pleural effusion" Aztreonam Completed Vancomycin/Gentamicin x 1 dose ID Consult: Dr. Gonzales (Known to pt) Duoneb treatments q2H prn Solu-medrol 40mg IVP Maintain 02 sat >90% HOB 30 degrees GI: Distended Continue with protonix Abd Xray 12/09/17: Moderate small bowel distention at the central abdomen is identified with moderate amount of large bowel gas. Developing ileus not com pletely excluded nor would early small-bowel obstruction be excluded at this time. Further clinical correlation advised. Follow-up radiography recommended /Renal: 3.5 hrs 1.2L off. Original fluid removal goal was 2L but pt hypotensive during tx. 12/09 Albumin x 1 given and Levophed IV initiated ESRD on HD MWF. Pt to undergo dialysis today BUN/Cr below baseline Pt had missed last HD session Nephrology following Replace lytes Maintain euvolemia Continue to monitor Endocrine: Hx of DM Maintain euglycemia Fingersticks q6h Heme: Macrocytic anemia at baseline platelets stable continue to monitor ID Continue aztreonam F/u panculture Will consider cefepime despite penicillin if condition worsens Stage 2 sacral ulcer: followed by wound care DVT/GI PPx: Hep/Protonix Case seen, examined and discussed with attending physician, Dr. Rosario <Viviana Rosario - Last Filed: 12/10/17 14:58> CCU Objective - Vital Signs / Intake & Output Vital Signs (Last 4 hours): Vital Signs Pulse 12/10/17 11:47 95 H Intake and Output (Last 8hrs): Intake & Output 12/09/17 12/10/17 12/10/17 22:59 06:59 14:59 Intake Total 190 400 Output Total 1200 Balance -1010 400 Weight 78.188 kg Intake: IV 130 200 Left Antecubital 100 Left Forearm 200 Oral 60 200 Output: Urine 0 Urine, Voided 0 Other 1200 - Medications Active Medications: Active Medications Generic Name Dose Route Start Last Admin Trade Name Freq PRN Reason Stop Dose Admin Albumin Human 12.5 gm 12/09/17 11:30 12/09/17 12:26 Albumin Human 25% (12.5 Gm/50 Ml) IV 12/11/17 11:31 12.5 gm ONCE AUGUSTIN Administration Albuterol/Ipratropium 3 ml 12/08/17 14:37 12/09/17 23:19 Duoneb 3 Mg/0.5 Mg (3 Ml) Ud IH 3 ml Q2H PRN Administration Shortness of Breath Bisacodyl 10 mg 12/10/17 10:00 12/10/17 10:12 Dulcolax RC Not Given DAILY [facility] Heparin Sodium (Porcine) 5,000 units 12/08/17 22:00 12/10/17 10:11 Heparin SC 5,000 units Q12 [facility] Administration Protocol Aztreonam 500 mg/ Sodium 100 mls @ 100 mls/hr 12/08/17 22:00 12/10/17 05:43 Chloride IVPB 100 mls/hr Q8 [facility] Administration Protocol NOREPINEPHRINE BIT/0.9 % NACL 4 mg in 250 mls @ 15 mls/hr 12/09/17 12:48 12/09/17 15:50 Levophed 4 Mg/ 250 Ml Ns Premixed IV 0 mcg/min .[id number] PRN 0 mls/hr TITRATE PER MD ORDER Titration Protocol 4 MCG/MIN Insulin Human Regular 0 units 12/10/17 16:30 Humulin R Low SC ACHS [facility] Protocol Methylprednisolone 40 mg 12/08/17 22:00 12/10/17 10:11 Solu-Medrol IVP 40 mg Q12 [facility] Administration Metoprolol Tartrate 25 mg 12/08/17 18:00 12/10/17 10:09 Lopressor PO Not Given BID [facility] Midodrine 10 mg 12/09/17 12:35 12/10/17 10:10 Proamatine PO 10 mg TID [facility] Administration Pantoprazole Sodium 40 mg 12/08/17 16:30 12/10/17 10:11 Protonix Inj IVP 40 mg DAILY [facility] Administration Sevelamer HCl 1,600 mg 12/09/17 14:00 12/10/17 10:11 Renagel PO Not Given TID [facility] - Patient Studies Lab Studies: Microbiology Studies 12/08/17 10:50 Blood Culture - Preliminary Blood-Venous NO GROWTH AFTER 48 HOURS 12/08/17 16:25 MRSA Culture (Admit) - Final Naris MRSA NOT DETECTED 12/08/17 13:30 Blood Culture - Preliminary Blood-Venous NO GROWTH AFTER 24 HOURS Lab Studies 10/24/18 10/24/18 10/23/18 Range/Units 07:55 07:55 22:28 WBC 6.5 D (4.5-11.0) 10^3/ul RBC 3.00 L (3.5-6.1) 10^6/uL Hgb 11.0 L (12.0-16.0) g/dL Hct 36.3 (36.0-48.0) % MCV 121.0 H (80.0-105.0) fl MCH 36.7 H (25.0-35.0) pg MCHC 30.3 L (31.0-37.0) g/dl RDW 17.6 H (11.5-14.5) % Plt Count 159 (120.0-450.0) 10^3/uL MPV 10.1 (7.0-11.0) fl Gran % 85.6 H (50.0-68.0) % Lymph % (Auto) 8.2 L (22.0-35.0) % Moca % (Auto) 6.2 H (1.0-6.0) % Eos % (Auto) 0.0 L (1.5-5.0) % Baso % (Auto) 0.0 (0.0-3.0) % Gran # 5.52 (1.4-6.5) Lymph # (Auto) 0.5 L (1.2-3.4) Moca # (Auto) 0.4 (0.1-0.6) Eos # (Auto) 0.0 (0.0-0.7) Baso # (Auto) 0.00 (0.0-2.0) K/mm3 Sodium 137 (132-148) mmol/L Potassium 4.5 (3.6-5.0) mmol/L Chloride 97 L (98-107) mmol/L Carbon Dioxide 26 (21-33) mmol/L Anion Gap 19 (10-20) BUN 25 H (7-21) mg/dL Creatinine 3.4 H (0.7-1.2) mg/dl Est GFR ( Amer) 16 Est GFR (Non-Af Amer) 13 POC Glucose (mg/dL) 163 H (65-110) mg/dL Random Glucose 220 H (70-110) mg/dL Calcium 8.8 (8.4-10.5) mg/dL Phosphorus 6.1 H (2.5-4.5) mg/dL Magnesium 2.0 (1.7-2.2) mg/dL Total Bilirubin 0.9 (0.2-1.3) mg/dL AST 37 H D (14-36) U/L ALT 23 (7-56) U/L Alkaline Phosphatase 237 H (38-126) U/L Total Protein 7.9 (5.8-8.3) g/dL Albumin 3.6 (3.0-4.8) g/dL Globulin 4.4 gm/dL Albumin/Globulin Ratio 0.8 L (1.1-1.8) Free T4 (0.78-2.19) ng/dL Total T3 (0.97-1.69) ng/mL 12/09/17 12/09/17 12/09/17 Range/Units 18:42 15:59 10:06 WBC (4.5-11.0) 10^3/ul RBC (3.5-6.1) 10^6/uL Hgb (12.0-16.0) g/dL Hct (36.0-48.0) % MCV (80.0-105.0) fl MCH (25.0-35.0) pg MCHC (31.0-37.0) g/dl RDW (11.5-14.5) % Plt Count (120.0-450.0) 10^3/uL MPV (7.0-11.0) fl Gran % (50.0-68.0) % Lymph % (Auto) (22.0-35.0) % Moca % (Auto) (1.0-6.0) % Eos % (Auto) (1.5-5.0) % Baso % (Auto) (0.0-3.0) % Gran # (1.4-6.5) Lymph # (Auto) (1.2-3.4) Moca # (Auto) (0.1-0.6) Eos # (Auto) (0.0-0.7) Baso # (Auto) (0.0-2.0) K/mm3 Sodium (132-148) mmol/L Potassium (3.6-5.0) mmol/L Chloride (98-107) mmol/L Carbon Dioxide (21-33) mmol/L Anion Gap (10-20) BUN (7-21) mg/dL Creatinine (0.7-1.2) mg/dl Est GFR ( Amer) Est GFR (Non-Af Amer) POC Glucose (mg/dL) 80 86 85 (65-110) mg/dL Random Glucose (70-110) mg/dL Calcium (8.4-10.5) mg/dL Phosphorus (2.5-4.5) mg/dL Magnesium (1.7-2.2) mg/dL Total Bilirubin (0.2-1.3) mg/dL AST (14-36) U/L ALT (7-56) U/L Alkaline Phosphatase (38-126) U/L Total Protein (5.8-8.3) g/dL Albumin (3.0-4.8) g/dL Globulin gm/dL Albumin/Globulin Ratio (1.1-1.8) Free T4 (0.78-2.19) ng/dL Total T3 (0.97-1.69) ng/mL 12/09/17 Range/Units 07:00 WBC (4.5-11.0) 10^3/ul RBC (3.5-6.1) 10^6/uL Hgb (12.0-16.0) g/dL Hct (36.0-48.0) % MCV (80.0-105.0) fl MCH (25.0-35.0) pg MCHC (31.0-37.0) g/dl RDW (11.5-14.5) % Plt Count (120.0-450.0) 10^3/uL MPV (7.0-11.0) fl Gran % (50.0-68.0) % Lymph % (Auto) (22.0-35.0) % Moca % (Auto) (1.0-6.0) % Eos % (Auto) (1.5-5.0) % Baso % (Auto) (0.0-3.0) % Gran # (1.4-6.5) Lymph # (Auto) (1.2-3.4) Moca # (Auto) (0.1-0.6) Eos # (Auto) (0.0-0.7) Baso # (Auto) (0.0-2.0) K/mm3 Sodium (132-148) mmol/L Potassium (3.6-5.0) mmol/L Chloride (98-107) mmol/L Carbon Dioxide (21-33) mmol/L Anion Gap (10-20) BUN (7-21) mg/dL Creatinine (0.7-1.2) mg/dl Est GFR ( Amer) Est GFR (Non-Af Amer) POC Glucose (mg/dL) (65-110) mg/dL Random Glucose (70-110) mg/dL Calcium (8.4-10.5) mg/dL Phosphorus (2.5-4.5) mg/dL Magnesium (1.7-2.2) mg/dL Total Bilirubin (0.2-1.3) mg/dL AST (14-36) U/L ALT (7-56) U/L Alkaline Phosphatase (38-126) U/L Total Protein (5.8-8.3) g/dL Albumin (3.0-4.8) g/dL Globulin gm/dL Albumin/Globulin Ratio (1.1-1.8) Free T4 0.84 (0.78-2.19) ng/dL Total T3 0.63 L (0.97-1.69) ng/mL Laboratory Results - last 24 hr 12/09/17 12/09/17 12/09/17 07:00 10:06 15:59 WBC RBC Hgb Hct MCV MCH MCHC RDW Plt Count MPV Gran % Lymph % (Auto) Moca % (Auto) Eos % (Auto) Baso % (Auto) Gran # Lymph # (Auto) Moca # (Auto) Eos # (Auto) Baso # (Auto) Sodium Potassium Chloride Carbon Dioxide Anion Gap BUN Creatinine Est GFR ( Amer) Est GFR (Non-Af Amer) POC Glucose (mg/dL) 85 86 Random Glucose Calcium Phosphorus Magnesium Total Bilirubin AST ALT Alkaline Phosphatase Total Protein Albumin Globulin Albumin/Globulin Ratio Free T4 0.84 Total T3 0.63 L 12/09/17 12/09/17 12/10/17 18:42 22:28 07:55 WBC 6.5 D RBC 3.00 L Hgb 11.0 L Hct 36.3 MCV 121.0 H MCH 36.7 H MCHC 30.3 L RDW 17.6 H Plt Count 159 MPV 10.1 Gran % 85.6 H Lymph % (Auto) 8.2 L Moca % (Auto) 6.2 H Eos % (Auto) 0.0 L Baso % (Auto) 0.0 Gran # 5.52 Lymph # (Auto) 0.5 L Moca # (Auto) 0.4 Eos # (Auto) 0.0 Baso # (Auto) 0.00 Sodium Potassium Chloride Carbon Dioxide Anion Gap BUN Creatinine Est GFR ( Amer) Est GFR (Non-Af Amer) POC Glucose (mg/dL) 80 163 H Random Glucose Calcium Phosphorus Magnesium Total Bilirubin AST ALT Alkaline Phosphatase Total Protein Albumin Globulin Albumin/Globulin Ratio Free T4 Total T3 12/10/17 07:55 WBC RBC Hgb Hct MCV MCH MCHC RDW Plt Count MPV Gran % Lymph % (Auto) Moca % (Auto) Eos % (Auto) Baso % (Auto) Gran # Lymph # (Auto) Moca # (Auto) Eos # (Auto) Baso # (Auto) Sodium 137 Potassium 4.5 Chloride 97 L Carbon Dioxide 26 Anion Gap 19 BUN 25 H Creatinine 3.4 H Est GFR ( Amer) 16 Est GFR (Non-Af Amer) 13 POC Glucose (mg/dL) Random Glucose 220 H Calcium 8.8 Phosphorus 6.1 H Magnesium 2.0 Total Bilirubin 0.9 AST 37 H D ALT 23 Alkaline Phosphatase 237 H Total Protein 7.9 Albumin 3.6 Globulin 4.4 Albumin/Globulin Ratio 0.8 L Free T4 Total T3 EKG/Cardiology Studies: Cardiology / EKG Studies 12/10/17 08:35 ELECTROCARDIOGRAM Urgent Comment: Reason For Exam: paf PERFORMING PHYSICIAN/PROVIDER:: Joss Bah Critical Care Progress Note - Nutrition Nutrition: Nutrition Category Date Time Status Renal Diet [DIET] Diets 12/09/17 Lunch Ordered Addendum Addendum: 12/10/17 14:58 ICU Attending Addendum Patient seen and examined. Case reviewed on round with housestaff. Agree with resident note above with the following additions/exceptions: 72F with ESRD on HD, MWF, COPD, dementia, presents from home s/p fall. Shock resolved. Possibly sepsis but no source identified. Likely cardiogenic from renal failure. Also HCRF, appears to be maintaining her own airway. Awake and alert however confused. Possible hospital delirium vs dementia. Will check ABG to ensure not related to CO2 narcosis. Broad spectrum abx, as per ID HD this am as per Renal If hemodynamically stable during HD and ABG appropriate then will be ok to transfer out of ICU rest of care above Viviana Rosario MD [facility] Critical Care Time: 31mins
--- NOTE | 2017-12-10 09:54 | CARD ---
APPROVED REPORT Date of service: 12/10/2017 EKG Measurement Heart [id number] <Conclusion> Normal sinus rhythm Incomplete right bundle branch block RAD Possible Right ventricular hypertrophy PRWP, possibly due to lead placement Low voltage ECG NSSTW changes
[2017-12-10] MEDS: MethylPREDNISolone 40 mg Vial IVP SCH ×2 (10:11→21:48)
--- NOTE | 2017-12-10 11:27 | PN ---
DATE: 12/09/2017 SUBJECTIVE: The patient was seen and examined on the bedside on 12/09/2017. These progress notes are for 12/09/2017. Niece was sitting on the bedside also. The patient looks a lot better. Awake, alert, answering a few questions. The patient is on nasal cannula, but the patient is confused. No fever. No chills. No nausea, vomiting, diarrhea. No hematuria or hematochezia. PHYSICAL EXAMINATION: VITAL SIGNS: Temperature 98, heart rate 90, respiratory rate 20, blood pressure 128/90, pulse oximetry 93% on nasal cannula. HEENT: Head normocephalic, atraumatic. Eyes PERRLA. Extraocular muscles intact. Conjunctivae clear. Nose patent. Mucous membrane moist. NECK: Supple. No carotid bruit. No JVD or thyromegaly. LUNGS: Have prolonged expiratory phase and few rhonchi. HEART: S1 and S2 positive. ABDOMEN: Soft, obese, nontender. No organomegaly. EXTREMITIES: Have edema. No cyanosis. NEUROLOGICAL: Awake, alert, legally blind, but confused. Does some follow commands. MEDICATIONS: Aztreonam, DuoNeb, heparin, Levophed, metoprolol. Pulmicort is discontinued. Midodrine, Protonix, Renagel, Solu-Medrol. LABORATORY DATA: Hemoglobin 10.9, hematocrit 33.1, white blood cells 8.4, platelets 141. Sodium 136, potassium 4.8, BUN 32, creatinine 5.3, ALT 22. ASSESSMENT AND PLAN: Ms. Debby Olguin, a 72-year-old lady came with respiratory failure with carbon dioxide retention and hypoxemia requiring noninvasive ventilation, acute on chronic renal failure, right lower lobe pneumonia, chronic obstructive lung disease, renal failure, dialysis dependent, hypertension, cardiomyopathy, coronary artery disease, ileus. The patient was recently discharged from [facility]. Length of time discussion done with the patient's niece, who was on the bedside. Discussion done with the patient's nurse. The patient did not tolerate Primacor. It dropped the patient's blood pressure and was discontinued. Getting oxygen. Need BiPAP especially while sleeping. Continue tapering dose of steroid. Gastric prophylaxis. Sequential compression device to lower extremities. Dulcolax given. Repeat labs. All questions answered with the niece. We will follow up. Taylor House MD [facility] # [id number]
--- NOTE | 2017-12-10 11:33 | PN ---
DATE: 12/10/2017 REASON FOR CONSULTATION AND FOLLOWUP: Paroxysmal atrial fibrillation, cardiomyopathy, coronary artery disease, on LifeVest, admitted with altered mental status. SUBJECTIVE: The patient is much awake and alert, was on Primacor yesterday, did not tolerate, dropped the blood pressure in the dialysis, now on Levophed which is on held this morning, pressure is 100. PHYSICAL EXAMINATION: GENERAL: Not in any apparent distress, lying flat on the bed. VITAL SIGNS: Temperature afebrile, heart rate 96, blood pressure . HEENT: PERRLA. Extraocular muscles intact. NECK: Supple. No carotid bruits or thyromegaly. CHEST: Clear to auscultation. HEART: S1 and S2 regular. ABDOMEN: Soft. EXTREMITIES: Clubbing and cyanosis negative. LABORATORY DATA: WBC 6.5, hemoglobin 11, hematocrit 36.3, platelet count 159. Chemistry shows sodium 133, potassium 4.5, chloride 97, carbon dioxide 26, anion gap of 19, BUN 25, creatinine 1.4. IMPRESSION: A 72-year-old female with a past medical history significant for diabetes, hypertension, hyperlipidemia, end-stage renal disease on dialysis, history of coronary artery disease status post stent 5 years ago, being followed at [facility] by Dr. Sussy De La O and Dr. Motta. Recently, the patient seen by Dr. 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 Initially, the patient with altered mental status, now significantly improved, history of end-stage renal disease on dialysis. The patient was started on Primacor, did not tolerate, dropped the blood pressure. Now, the patient is on Levophed and it is turned off because the pressure is now 100. RECOMMENDATIONS: Continue dialysis. Continue antibiotic for pneumonia. Continue Levophed to maintain the blood pressure above 100 and wean off the Levophed as blood pressure is tolerated. Upon discharge, the patient needs the AICD, currently on LifeVest. We will follow with you. Awaiting to repeat echo to see if earlier the patient had preserved LV function, now probably recently the patient has decreased LV function, history of atrial fibrillation which is nothing new. History of recently diagnosed cardiomyopathy, as mentioned supposed to get defibrillator which is on hold because of pneumonia, admitted with AFib. Previous EKG reviewed, the patient was in sinus rhythm, apparently it looks like AFib is new. Previous echo dated 07/10/2017 showed ejection fraction 55%, probably there is drop in EF is new and that is why the patient has LifeVest and again probably this EKG, paroxysmal is new. We will repeat EKG. We will follow with you. We will repeat echo as well to assess the LV function. Thank you Dr. House for providing us the opportunity in taking care of your patient, Sharif. Joss Bah MD
[2017-12-10] MEDS ORDERED: Darbepoetin Alfa 60 mcg/ml Inj IVP ONE (12:42)
[2017-12-10] MEDS ORDERED: Doxercalciferol 4 mcg/2 ml Inj IV ONE (12:43)
[2017-12-10 14:40] LABS: FREE T4 0.84 ng/dL (0.78-2.19)
[2017-12-10 14:55] LABS: T3 0.63 ng/mL (0.97-1.69)
--- NOTE | 2017-12-10 16:32 | CP.PCM.PN ---
Subjective - Date & Time of Evaluation Date of Evaluation: 12/10/17 Time of Evaluation: 15:00 - Subjective Subjective: Infectious Disease Follow Up: December 10, 2017 72 yo Maltese speaking female presenting to [facility] with back pain on sitting down. Patient was found to be hypotensive in ER. The patient has an extensive medical history that includes ESRD on HD, CAD, CHF with EF of 35%, occluded heart vessels, DM, HTN, and ischemic cardiomyopathy. The patient is unable to provide any additional information at this time. Daughter is at bedside. Blood pressure improved after 1L fluid bolus on admission. The patient is awake and alert and much less confused today. She can follow commands. Received HD yesterday. She is able to answer questions appropriately today. Objective - Vital Signs/Intake and Output Vital Signs (last 24 hours): Temp Pulse Resp BP Pulse Ox 98.3 F 93 H 22 138/78 90 L 12/10/17 12:00 12/10/17 15:40 12/10/17 15:40 12/10/17 15:00 12/10/17 15:40 Intake and Output: 12/10/17 12/10/17 06:59 18:59 Intake Total 400 Balance 400 - Medications Medications: Current Medications Albumin Human (Albumin Human 25% (12.5 Gm/50 Ml)) 12.5 gm IV ONCE [facility] Stop: 12/11/17 11:31 Last Admin: 12/09/17 12:26 Dose: 12.5 gm Albuterol/Ipratropium (Duoneb 3 Mg/0.5 Mg (3 Ml) Ud) 3 ml IH Q2H PRN PRN Reason: Shortness of Breath Last Admin: 12/09/17 23:19 Dose: 3 ml Bisacodyl (Dulcolax) 10 mg RC DAILY [facility] Last Admin: 12/10/17 10:12 Dose: Not Given Heparin Sodium (Porcine) (Heparin) 5,000 units SC Q12 [facility]; Protocol Last Admin: 12/10/17 10:11 Dose: 5,000 units Aztreonam 500 mg/ Sodium (Chloride) 100 mls @ 100 mls/hr IVPB Q8 [facility]; Protocol Last Admin: 12/10/17 14:57 Dose: 100 mls/hr NOREPINEPHRINE BIT/0.9 % NACL (Levophed 4 Mg/ 250 Ml Ns Premixed) 4 mg in 250 mls @ 15 mls/hr IV .[id number] PRN; Protocol PRN Reason: TITRATE PER MD ORDER Last Titration: 12/09/17 15:50 Dose: 0 mcg/min, 0 mls/hr Insulin Human Regular (Humulin R Low) 0 units SC ACHS [facility]; Protocol Methylprednisolone (Solu-Medrol) 40 mg IVP Q12 [facility] Last Admin: 12/10/17 10:11 Dose: 40 mg Metoprolol Tartrate (Lopressor) 25 mg PO BID [facility] Last Admin: 12/10/17 10:09 Dose: Not Given Midodrine (Proamatine) 10 mg PO TID [facility] Last Admin: 12/10/17 14:59 Dose: 10 mg Pantoprazole Sodium (Protonix Inj) 40 mg IVP DAILY [facility] Last Admin: 12/10/17 10:11 Dose: 40 mg Sevelamer HCl (Renagel) 1,600 mg PO TID [facility] Last Admin: 12/10/17 14:58 Dose: 1,600 mg - Labs Labs: 12/10/17 07:55 12/10/17 07:55 - Constitutional Appears: Non-toxic, No Acute Distress, Chronically Ill - Head Exam Head Exam: ATRAUMATIC, NORMOCEPHALIC - Eye Exam Eye Exam: EOMI, PERRL Pupil Exam: NORMAL ACCOMODATION, PERRL - ENT Exam ENT Exam: Mucous Membranes Moist, Normal External Ear Exam, TM's Normal Bilaterally - Neck Exam Neck Exam: Full ROM, Normal Inspection - Respiratory Exam Respiratory Exam: Decreased Breath Sounds, NORMAL BREATHING PATTERN. absent: Rales, Rhonchi, Wheezes - Cardiovascular Exam Cardiovascular Exam: REGULAR RHYTHM, RRR, +S1, +S2 - GI/Abdominal Exam GI & Abdominal Exam: Distended, Soft. absent: Tenderness - Extremities Exam Extremities Exam: Normal Inspection. absent: Joint Swelling, Pedal Edema - Neurological Exam Additional comments: AAO x 2 at this time. Was initially hypotensive with AMS. - Skin Skin Exam: Dry, Intact, Warm Assessment and Plan - Assessment and Plan (Free Text) Assessment: 72 yo female known to me from previous hospitalizations to [facility]. The patient with initial complaint of back pain on sitting down . Found to be hypotensiive at this time. Antibiotics and fluids started. The patient is more awake and alert compared to admission. Blood pressure has improved with 1L of fluids. Started on Aztreonam for antibiotic coverage with single dose of Vancomycin IV and Gentamicin IV. Nam cultures sent. No leukocytosis. Supportive care. Case discussed with Dr. Garrett. If there is continued worsening, will have to consider use of Cefepime despite PCN allergy. Awaiting culture results. The patient is awake and alert now but confused. The patient can follow commands. Not hypotensive at this time. Cultures with no growth at this time. Maintain Broad antibiotic coverage at this time. No specific source of sepsis seen. Septic versus Cardiogenic shock on initial presentation. No specific infectious etiology found at this time. Consider 7 to 10 days of antibiotics in total. Supportive care. Thank you for allowing me to participate in the care of this patient, we will follow with you.
[2017-12-10] MEDS: Albuterol-Ipratrop 3 mg / 0.5 (3 ml) UD IH PRN ×2 (16:42→20:27)
[2017-12-10] MEDS: Insulin Reg-LOW-Coverage SC SCH ×2 (16:43→22:08)
[2017-12-10 17:24] LABS: VENOUS BLOOD GAS PO2 62 mm/Hg (30-55); VENOUS BLOOD PH 7.24 (7.32-7.43)
[2017-12-10] MEDS: Albumin Human 25% (12.5 gm/50 ml) IV SCH (17:30)
--- NOTE | 2017-12-10 18:09 | PN ---
DATE: 12/10/2017 CURRENT MEDICATIONS: Aztreonam 500 every 8, Dulcolax, DuoNeb, heparin, insulin, Lopressor 25 b.i.d., ProAmatine 10 t.i.d., Protonix, Renagel 1600 t.i.d., Solu-Medrol 40 IV every 12. ASSESSMENT: 1. Asthma exacerbation, respiratory failure, hypercapnic respiratory acidosis. 2. Profound hypotension, cardiomyopathy, decreased ejection fraction. 3. Congestive heart failure/volume overload. 4. End-stage renal disease. 5. Coronary artery disease, percutaneous transluminal coronary angioplasty and stent, cardiomyopathy, mitral regurgitation, tricuspid regurgitation, Life-Vest placement. Awaiting automatic implantable cardioverter-defibrillator. 6. Anemia of chronic kidney disease. 7. Secondary hyperparathyroidism. 8. Osteomyelitis of the spine. PLAN: 1. The patient currently had stable dialysis today, ultrafiltration of 2 kilos was possible. 2. Continue BiPAP for respiratory acidosis. 3. Continue ProAmatine. 4. We will assess for dialysis again tomorrow. 5. Continue antibiotics for presumptive pneumonia. 6. Continue to monitor closely in the ICU. 7. Case discussed with daughter at bedside at length, case discussed with the ICU staff, case discussed with dialysis staff. More than 35 minutes was spent in the care of this critically ill patient. Marlyn Snow MD
--- NOTE | 2017-12-10 18:13 | CARD ---
APPROVED REPORT Date of service: 12/10/2017 EXAM: Two-dimensional and M-mode echocardiogram with Doppler and color Doppler. INDICATION Congestive Heart Failure 2D DIMENSIONS Left Atrium (2D)3.1 (1.6-4.0cm)IVSd1.1 (0.7-1.1cm) LVDd3.5 (3.9-5.9cm)PWd0.9 (0.7-1.1cm) LVDs2.7 (2.5-4.0cm)FS (%) 24.4 % LVEF (%)50.0 (>50%) M-Mode DIMENSIONS Aortic Root2.40 (2.2-3.7cm)Aortic Cusp Exc.0.80 (1.5-2.0cm) Aortic Valve AoV Peak Wepcuiav906.0cm/Rima Peak GR.8mmHg Mitral Valve MV E Buulgbci24.1cm/sMV A Zcpdgzfa00.3cm/sE/A ratio1.0 TDI E/Lateral E'0.0E/Medial E'0.0 Tricuspid Valve TR Peak [id number]/sRAP [id number] Peak Gr.24mmHg [id number] LEFT VENTRICLE The left ventricle is normal size. There is normal left ventricular wall thickness. Left ventricle systolic function is low normal.EF-50-55% There is a flattened septum consistent with right ventricle volume and pressure overload. Transmitral Doppler flow pattern is Grade III-reversible restrictive diastolic dysfunction. No left ventricle thrombus noted on this study. There is no ventricular septal defect visualized. There is no left ventricular aneurysm. There is no mass noted in the left ventricle. RIGHT VENTRICLE The right ventricle is severely dilated. There is normal right ventricular wall thickness. Systolic function of RV is severely reduced. ATRIA The left atrium size is normal. The right atrium is severely dilated. The interatrial septum is intact with no evidence for an atrial septal defect. AORTIC VALVE The aortic valve is calcified and displays decreased opening. There is trace aortic regurgitation. There is mild valvular aortic stenosis Vs aortic Sclerosis There is no aortic valvular vegetation. MITRAL VALVE The mitral valve is thickened but opens well. Mitral regurgitation is trace to mild. There is no mitral valve stenosis. There is no evidence of mitral valve prolapse. TRICUSPID VALVE The tricuspid valve leaflets are thickened , but open well. There is moderate tricuspid regurgitation. calculated RVSP-34 mmof Hg is being underestmated b/c of configuration of TR jet. There is no tricuspid valve stenosis. There is no tricuspid valve prolapse or vegetation. PULMONIC VALVE The pulmonary valve is normal in structure. There is trace pulmonic valvular regurgitation. There is no pulmonic valvular stenosis. GREAT VESSELS The aortic root is normal in size. The ascending aorta is normal in size. The pulmonary artery is normal. The IVC is normal in size and collapses >50% with inspiration. PERICARDIAL EFFUSION There is no pleural effusion. There is no pericardial effusion. <Conclusion> The left ventricle is normal size. There is normal left ventricular wall thickness. Left ventricle systolic function is low normal.EF-50-55% There is a flattened septum consistent with right ventricle volume and pressure overload. The right ventricle is severely dilated. Systolic function of RV is severely reduced. There is trace aortic regurgitation. There is mild valvular aortic stenosis Vs aortic Sclerosis Mitral regurgitation is trace to mild. There is moderate tricuspid regurgitation. calculated RVSP-34 mmof Hg is being underestmated b/c of configuration of TR jet. The IVC is normal in size and collapses >50% with inspiration. There is no pericardial effusion.
--- NOTE | 2017-12-10 18:32 | PN ---
CRITICAL CARE PROGRESS NOTE DATE: 12/10/2017 REFERRING PHYSICIAN: Taylor House MD SUBJECTIVE: She is on noninvasive ventilation. Family is at bedside. Getting echocardiogram done. Awake, alert, verbal, but still confused. No hemoptysis. No emesis. No hematuria. No diarrhea. Does have leg swelling. OBJECTIVE: VITAL SIGNS: 95, respiratory rate is 20, blood pressure 98/44 and pulse ox 94% on BiPAP. HEENT: Moist mucous membranes. Crowded airway. Mallampati score is 4. NECK: Short thick neck. LUNGS: Have a poor airflow, prolonged expiratory phase. HEART: S1 and S2. ABDOMEN: Soft and nontender. No organomegaly. EXTREMITIES: Does have edema. NEUROLOGIC: Awake and alert. Follows simple command, but confused. MEDICATIONS: She is on aztreonam 500 mg every 8 hours, Dulcolax rectally daily, DuoNeb every 2 hours p.r.n., heparin 5000 units subcutaneous every 8 hours, also getting Levophed, metoprolol tartrate is at 25 mg twice a day, midodrine 10 mg three times a day, Protonix 40 mg daily, Renagel three times daily and Solu-medrol is 40 mg every 12 hours. LABORATORY DATA: Shows hemoglobin 11.0, hematocrit 36.3, WBC 6.5 and platelet is 159. Sodium 137, potassium 4.5, chloride 97, bicarbonate 26, BUN 25, creatinine 3.4, glucose is 220, calcium is 8.8, phosphorous , AST is 37, ALT 23, alk phos is 237, and albumin is 3.6. Microbiology; blood culture and urine culture, there is no growth. IMPRESSION AND PLAN: Respiratory failure with CO2 retention and hypoxemia, requiring noninvasive ventilation, pulmonary infiltrate, chronic obstructive lung disease, renal failure, dialysis dependent, pulmonary hypertension, cardiomyopathy, coronary artery disease with diabetes and ileus. Case discussed with nursing staff, also spoke to registered medical transcriptionist. May need to place nasal airway, extend neck when she is lying, may use bilevel positive airway pressure as needed basis, need to get one ABG to assess pCO2. Followup ABG, chest x-ray, CBC, CMP in the morning. Critical care time is more than 35 minutes. Thank you and we will follow with you. Joss Arias MD [facility] # [id number]
[2017-12-10 22:22] LABS: VENOUS BLOOD GAS BASE EXCESS -1.7 mmol/L (0.0-2.0); VENOUS BLOOD GAS PO2 65 mm/Hg (30-55); VENOUS BLOOD PH 7.27 (7.32-7.43)
[2017-12-10] MEDS ORDERED: Acetaminophen 650mg/20.3ml solution UD PO ONE (23:05)
[2017-12-11 02:55] LABS: VENOUS BLOOD GAS BASE EXCESS 0.4 mmol/L (0.0-2.0); VENOUS BLOOD GAS PO2 62 mm/Hg (30-55); VENOUS BLOOD PH 7.24 (7.32-7.43)
--- NOTE | 2017-12-11 03:56 | PN ---
DATE: 12/10/2017 SUBJECTIVE: Patient is a 72-year-old female. Patient was seen and examined on the bedside on 12/10/2017. Patient looks comfortable, awake, alert, verbal, but still confused. No hematemesis. No hematuria or hematochezia. No headache. No dizziness. Does have swelling of the legs. PHYSICAL EXAMINATION: VITAL SIGNS: Temperature 97, respiratory rate 18, blood pressure 98/44, pulse oximetry 94% on BiPAP. HEENT: Head: Normocephalic, atraumatic. Eyes: PERRLA. Extraocular muscles intact. Conjunctivae clear. Nose patent. Mucous membrane moist. NECK: Supple. No carotid bruit. No JVD or thyromegaly. CHEST: Bilaterally symmetrical. HEART: S1 and S2 positive. LUNGS: Clear to auscultation. ABDOMEN: Soft. Bowel sounds present. No organomegaly. EXTREMITIES: Positive edema. No cyanosis. NEUROLOGIC: Patient is awake and alert. Follows simple command, but confused. MEDICATIONS: Aztreonam, Dulcolax, DuoNeb, heparin, Levophed, metoprolol, Protonix, Renagel, Solu-Medrol. LABORATORY DATA: Hemoglobin 11, hematocrit 36.3, white blood cells 6.5, platelets 159. Sodium 137, potassium 4.5, BUN 25, creatinine 3.4, AST 37, ALT 23. ASSESSMENT AND PLAN: Ms. Debby Olguin is a 72-year-old female, has respiratory failure with carbon dioxide retention and hypoxemia, requiring noninvasive ventilation; having pneumonia; chronic obstructive pulmonary disease; renal failure, on hemodialysis; has pulmonary hypertension; cardiomyopathy; coronary artery disease with diabetes and ileus. Patient is still in the unit. Discussion done with the family, sitting on the bedside. May use bilevel positive airway pressure on as needed basis. We will repeat labs. Gastrointestinal and deep venous prophylaxes. We will follow up. Taylor House MD
[2017-12-11] MEDS: Insulin Reg-LOW-Coverage SC SCH ×4 (08:11→22:04)
[2017-12-11 08:16] LABS: GRAN # 4.96 (1.4-6.5); GRAN % 81.6 % (50.0-68.0); HEMOGLOBIN 11.8 g/dL (12.0-16.0); LYMPH # 0.7 (1.2-3.4); LYMPH % 11.5 % (22.0-35.0); MEAN CELL VOLUME 120.1 fl (80.0-105.0); MEAN CORPUSCULAR HGB CONC 29.9 g/dl (31.0-37.0); MEAN PLATELET VOLUME 10.2 fl (7.0-11.0); MONO # 0.4 (0.1-0.6); MONO % 6.9 % (1.0-6.0); RBC 3.28 10^6/uL (3.5-6.1); RED CELL DISTRIBUTION WIDTH 17.2 % (11.5-14.5); WHITE BLOOD COUNT 6.1 10^3/ul (4.5-11.0)
[2017-12-11 08:35] LABS: ALB/GLOB RATIO 0.8 (1.1-1.8); ALBUMIN 3.6 g/dL (3.0-4.8); CALCIUM 8.9 mg/dL (8.4-10.5)
[2017-12-11] MEDS: MethylPREDNISolone 40 mg Vial IVP SCH ×2 (09:55→21:33)
[2017-12-11 10:24] LABS: VENOUS BLOOD GAS BASE EXCESS 0.2 mmol/L (0.0-2.0); VENOUS BLOOD GAS PO2 46 mm/Hg (30-55)
--- NOTE | 2017-12-11 10:58 | CARD ---
APPROVED REPORT Date of service: 12/10/2017 EKG Measurement Heart [id number] <Conclusion> Normal sinus rhythm Possible Right ventricular hypertrophy IRBBB RAD Low voltage NSSTW changes Small q waves 3,F
--- NOTE | 2017-12-11 11:47 | CP.CCUPN ---
<Ryder Alamo - Last Filed: 12/11/17 13:26> CCU Subjective - Physician Review Subjective (Free Text): CRITICAL CARE PROGRESS NOTE FOR DR. LI Alamo PGY-1 Pt seen and examined at bedside this am. She reports no acute complaints. She stated she felt better than yesterday. Other ROS were negative. She was eating crackers and drinking. She was AxO x 3. VBG returned showing respiratory acidosis, she was started on BiPAP. CCU Objective - Vital Signs / Intake & Output Vital Signs (Last 4 hours): Vital Signs Temp Pulse Resp BP Pulse Ox 12/11/17 10:50 84 12/11/17 10:00 92 H 118/60 12/11/17 09:30 92 H 12/11/17 08:50 95 H 10 L 100 12/11/17 08:40 94 H 17 100 12/11/17 08:30 92 H 17 99 12/11/17 08:26 92 H 15 12/11/17 08:20 93 H 12/11/17 08:10 89 100 12/11/17 08:02 98 F 12/11/17 08:00 92 H 13 130/54 L 99 12/11/17 07:54 85 14 12/11/17 07:53 93 H 22 12/11/17 07:52 87 21 12/11/17 07:51 92 H 25 H 12/11/17 07:50 94 H 49 H 12/11/17 07:49 93 H 67 H 12/11/17 07:48 92 H 26 H 12/11/17 07:47 92 H 29 H 12/11/17 07:46 92 H 30 H 12/11/17 07:45 91 H 19 Intake and Output (Last 8hrs): Intake & Output 12/10/17 12/11/17 12/11/17 22:59 06:59 14:59 Weight 175 lb 8 oz - Physical Exam Head: Positive for: Atraumatic, Normocephalic Pupils: Positive for: PERRL Extroacular Muscles: Positive for: EOMI Conjunctiva: Positive for: Normal Mouth: Positive for: Moist Mucous Membranes Neck: Positive for: Normal Range of Motion Respiratory/Chest: Positive for: Wheezes. Negative for: Respiratory Distress, Accessory Muscle Use Cardiovascular: Positive for: Regular Rate and Rhythm, Normal S1, S2. Negative for: Murmurs Abdomen: Positive for: Distention. Negative for: Tenderness, Peritoneal Signs, Rebound Back: Positive for: Normal Inspection Upper Extremity: Positive for: Normal Inspection. Negative for: Cyanosis, Edema Lower Extremity: Positive for: Normal Inspection. Negative for: Edema Neurological: Positive for: GCS=15, CN II-XII Intact, Speech Normal Skin: Positive for: Warm, Dry, Normal Color. Negative for: Rashes Psychiatric: Positive for: Alert, Oriented x 3, Normal Insight, Normal Concentration - Medications Active Medications: Active Medications Generic Name Dose Route Start Last Admin Trade Name Freq PRN Reason Stop Dose Admin Albuterol/Ipratropium 3 ml 12/08/17 14:37 12/10/17 20:27 Duoneb 3 Mg/0.5 Mg (3 Ml) Ud IH 3 ml Q2H PRN Administration Shortness of Breath Bisacodyl 10 mg 12/10/17 10:00 12/11/17 09:56 Dulcolax RC 10 mg DAILY AUGUSTIN Administration Heparin Sodium (Porcine) 5,000 units 12/08/17 22:00 12/11/17 09:56 Heparin SC 5,000 units Q12 AUGUSTIN Administration Protocol Aztreonam 500 mg/ Sodium 100 mls @ 100 mls/hr 12/08/17 22:00 12/11/17 05:26 Chloride IVPB 100 mls/hr Q8 AUGUSTIN Administration Protocol NOREPINEPHRINE BIT/0.9 % NACL 4 mg in 250 mls @ 15 mls/hr 12/09/17 12:48 12/09/17 15:50 Levophed 4 Mg/ 250 Ml Ns Premixed IV 0 mcg/min .[id number] PRN 0 mls/hr TITRATE PER MD ORDER Titration Protocol 4 MCG/MIN Insulin Human Regular 0 units 12/10/17 16:30 12/11/17 08:11 Humulin R Low SC 4 u ACHS AUGUSTIN Administration Protocol Methylprednisolone 40 mg 12/08/17 22:00 12/11/17 09:55 Solu-Medrol IVP 40 mg Q12 AUGUSTIN Administration Metoprolol Tartrate 25 mg 12/08/17 18:00 12/11/17 10:00 Lopressor PO 25 mg BID AUGUSTIN Administration Midodrine 10 mg 12/09/17 12:35 12/11/17 09:56 Proamatine PO 10 mg TID AUGUSTIN Administration Pantoprazole Sodium 40 mg 12/08/17 16:30 12/11/17 09:56 Protonix Inj IVP 40 mg DAILY AUGUSTIN Administration Sevelamer HCl 1,600 mg 12/09/17 14:00 12/11/17 09:56 Renagel PO 1,600 mg TID AUGUSTIN Administration - Patient Studies Lab Studies: Microbiology Studies 12/08/17 10:50 Blood Culture - Preliminary Blood-Venous NO GROWTH AFTER 3 DAYS 12/08/17 13:30 Blood Culture - Preliminary Blood-Venous NO GROWTH AFTER 48 HOURS Lab Studies 12/11/17 12/11/17 12/11/17 Range/Units 08:00 08:00 06:25 WBC 6.1 (4.5-11.0) 10^3/ul RBC 3.28 L (3.5-6.1) 10^6/uL Hgb 11.8 L (12.0-16.0) g/dL Hct 39.4 (36.0-48.0) % MCV 120.1 H (80.0-105.0) fl MCH 36.0 H (25.0-35.0) pg MCHC 29.9 L (31.0-37.0) g/dl RDW 17.2 H (11.5-14.5) % Plt Count 168 (120.0-450.0) 10^3/uL MPV 10.2 (7.0-11.0) fl Gran % 81.6 H (50.0-68.0) % Lymph % (Auto) 11.5 L (22.0-35.0) % Sac % (Auto) 6.9 H (1.0-6.0) % Eos % (Auto) 0.0 L (1.5-5.0) % Baso % (Auto) 0.0 (0.0-3.0) % Gran # 4.96 (1.4-6.5) Lymph # (Auto) 0.7 L (1.2-3.4) Sac # (Auto) 0.4 (0.1-0.6) Eos # (Auto) 0.0 (0.0-0.7) Baso # (Auto) 0.00 (0.0-2.0) K/mm3 pO2 46 (30-55) mm/Hg VBG pH 7.20 L (7.32-7.43) VBG pCO2 78.0 H* (40-60) VBG HCO3 30.5 H (21-28) mmol/l VBG Total CO2 32.9 H (22-28) mmol.L VBG O2 Sat (Calc) 81.2 H (40-65) % VBG Base Excess 0.2 (0.0-2.0) mmol/L VBG Potassium 4.0 (3.6-5.2) mmol/L Sodium 135 134.0 (132-148) mmol/L Chloride 95 L 95.0 L (98-107) mmol/L Glucose 324 H (65-105) mg/dl Lactate 2.0 (0.7-2.1) mmol/L FiO2 21.0 % Potassium 4.2 (3.6-5.0) mmol/L Carbon Dioxide 29 (21-33) mmol/L Anion Gap 16 (10-20) BUN 26 H (7-21) mg/dL Creatinine 2.5 H (0.7-1.2) mg/dl Est GFR ( Amer) 23 Est GFR (Non-Af Amer) 19 Random Glucose 315 H* D (70-110) mg/dL Calcium 8.9 (8.4-10.5) mg/dL Magnesium 2.1 (1.7-2.2) mg/dL Total Bilirubin 0.8 (0.2-1.3) mg/dL AST 29 (14-36) U/L ALT 21 (7-56) U/L Alkaline Phosphatase 209 H (38-126) U/L Total Protein 8.1 (5.8-8.3) g/dL Albumin 3.6 (3.0-4.8) g/dL Globulin 4.4 gm/dL Albumin/Globulin Ratio 0.8 L (1.1-1.8) Procalcitonin (0.19-0.49) NG/ML Free T4 (0.78-2.19) ng/dL Total T3 (0.97-1.69) ng/mL Venous Blood Potassium 4.0 (3.6-5.2) mmol/L 12/11/17 12/10/17 12/10/17 Range/Units 02:45 22:19 17:10 WBC (4.5-11.0) 10^3/ul RBC (3.5-6.1) 10^6/uL Hgb (12.0-16.0) g/dL Hct (36.0-48.0) % MCV (80.0-105.0) fl MCH (25.0-35.0) pg MCHC (31.0-37.0) g/dl RDW (11.5-14.5) % Plt Count (120.0-450.0) 10^3/uL MPV (7.0-11.0) fl Gran % (50.0-68.0) % Lymph % (Auto) (22.0-35.0) % Sac % (Auto) (1.0-6.0) % Eos % (Auto) (1.5-5.0) % Baso % (Auto) (0.0-3.0) % Gran # (1.4-6.5) Lymph # (Auto) (1.2-3.4) Sac # (Auto) (0.1-0.6) Eos # (Auto) (0.0-0.7) Baso # (Auto) (0.0-2.0) K/mm3 pO2 62 H 65 H 62 H (30-55) mm/Hg VBG pH 7.24 L 7.27 L 7.24 L (7.32-7.43) VBG pCO2 69.0 H* 57.0 68.0 H* (40-60) VBG HCO3 29.6 H 26.2 29.1 H (21-28) mmol/l VBG Total CO2 31.7 H 27.9 31.2 H (22-28) mmol.L VBG O2 Sat (Calc) 92.1 H 94.3 H 92.4 H (40-65) % VBG Base Excess 0.4 -1.7 L 0.0 (0.0-2.0) mmol/L VBG Potassium 4.0 3.3 L 3.9 (3.6-5.2) mmol/L Sodium 134.0 134.0 134.0 (132-148) mmol/L Chloride 95.0 L 98.0 95.0 L (98-107) mmol/L Glucose 335 H 295 H 247 H (65-105) mg/dl Lactate 2.4 H 2.5 H 2.6 H (0.7-2.1) mmol/L FiO2 21.0 21.0 21.0 % Potassium (3.6-5.0) mmol/L Carbon Dioxide (21-33) mmol/L Anion Gap (10-20) BUN (7-21) mg/dL Creatinine (0.7-1.2) mg/dl Est GFR ( Amer) Est GFR (Non-Af Amer) Random Glucose (70-110) mg/dL Calcium (8.4-10.5) mg/dL Magnesium (1.7-2.2) mg/dL Total Bilirubin (0.2-1.3) mg/dL AST (14-36) U/L ALT (7-56) U/L Alkaline Phosphatase (38-126) U/L Total Protein (5.8-8.3) g/dL Albumin (3.0-4.8) g/dL Globulin gm/dL Albumin/Globulin Ratio (1.1-1.8) Procalcitonin (0.19-0.49) NG/ML Free T4 (0.78-2.19) ng/dL Total T3 (0.97-1.69) ng/mL Venous Blood Potassium 4.0 3.3 L 3.9 (3.6-5.2) mmol/L 12/10/17 12/09/17 Range/Units 07:55 07:00 WBC (4.5-11.0) 10^3/ul RBC (3.5-6.1) 10^6/uL Hgb (12.0-16.0) g/dL Hct (36.0-48.0) % MCV (80.0-105.0) fl MCH (25.0-35.0) pg MCHC (31.0-37.0) g/dl RDW (11.5-14.5) % Plt Count (120.0-450.0) 10^3/uL MPV (7.0-11.0) fl Gran % (50.0-68.0) % Lymph % (Auto) (22.0-35.0) % Sac % (Auto) (1.0-6.0) % Eos % (Auto) (1.5-5.0) % Baso % (Auto) (0.0-3.0) % Gran # (1.4-6.5) Lymph # (Auto) (1.2-3.4) Sac # (Auto) (0.1-0.6) Eos # (Auto) (0.0-0.7) Baso # (Auto) (0.0-2.0) K/mm3 pO2 (30-55) mm/Hg VBG pH (7.32-7.43) VBG pCO2 (40-60) VBG HCO3 (21-28) mmol/l VBG Total CO2 (22-28) mmol.L VBG O2 Sat (Calc) (40-65) % VBG Base Excess (0.0-2.0) mmol/L VBG Potassium (3.6-5.2) mmol/L Sodium (132-148) mmol/L Chloride (98-107) mmol/L Glucose (65-105) mg/dl Lactate (0.7-2.1) mmol/L FiO2 % Potassium (3.6-5.0) mmol/L Carbon Dioxide (21-33) mmol/L Anion Gap (10-20) BUN (7-21) mg/dL Creatinine (0.7-1.2) mg/dl Est GFR ( Amer) Est GFR (Non-Af Amer) Random Glucose (70-110) mg/dL Calcium (8.4-10.5) mg/dL Magnesium (1.7-2.2) mg/dL Total Bilirubin (0.2-1.3) mg/dL AST (14-36) U/L ALT (7-56) U/L Alkaline Phosphatase (38-126) U/L Total Protein (5.8-8.3) g/dL Albumin (3.0-4.8) g/dL Globulin gm/dL Albumin/Globulin Ratio (1.1-1.8) Procalcitonin 0.81 H (0.19-0.49) NG/ML Free T4 0.84 (0.78-2.19) ng/dL Total T3 0.63 L (0.97-1.69) ng/mL Venous Blood Potassium (3.6-5.2) mmol/L Laboratory Results - last 24 hr 12/09/17 12/10/17 12/10/17 07:00 07:55 17:10 WBC RBC Hgb Hct MCV MCH MCHC RDW Plt Count MPV Gran % Lymph % (Auto) Sac % (Auto) Eos % (Auto) Baso % (Auto) Gran # Lymph # (Auto) Sac # (Auto) Eos # (Auto) Baso # (Auto) pO2 62 H VBG pH 7.24 L VBG pCO2 68.0 H* VBG HCO3 29.1 H VBG Total CO2 31.2 H VBG O2 Sat (Calc) 92.4 H VBG Base Excess 0.0 VBG Potassium 3.9 Sodium 134.0 Chloride 95.0 L Glucose 247 H Lactate 2.6 H FiO2 21.0 Potassium Carbon Dioxide Anion Gap BUN Creatinine Est GFR ( Amer) Est GFR (Non-Af Amer) Random Glucose Calcium Magnesium Total Bilirubin AST ALT Alkaline Phosphatase Total Protein Albumin Globulin Albumin/Globulin Ratio Procalcitonin 0.81 H Free T4 0.84 Total T3 0.63 L Venous Blood Potassium 3.9 12/10/17 12/11/17 12/11/17 22:19 02:45 06:25 WBC RBC Hgb Hct MCV MCH MCHC RDW Plt Count MPV Gran % Lymph % (Auto) Sac % (Auto) Eos % (Auto) Baso % (Auto) Gran # Lymph # (Auto) Sac # (Auto) Eos # (Auto) Baso # (Auto) pO2 65 H 62 H 46 VBG pH 7.27 L 7.24 L 7.20 L VBG pCO2 57.0 69.0 H* 78.0 H* VBG HCO3 26.2 29.6 H 30.5 H VBG Total CO2 27.9 31.7 H 32.9 H VBG O2 Sat (Calc) 94.3 H 92.1 H 81.2 H VBG Base Excess -1.7 L 0.4 0.2 VBG Potassium 3.3 L 4.0 4.0 Sodium 134.0 134.0 134.0 Chloride 98.0 95.0 L 95.0 L Glucose 295 H 335 H 324 H Lactate 2.5 H 2.4 H 2.0 FiO2 21.0 21.0 21.0 Potassium Carbon Dioxide Anion Gap BUN Creatinine Est GFR ( Amer) Est GFR (Non-Af Amer) Random Glucose Calcium Magnesium Total Bilirubin AST ALT Alkaline Phosphatase Total Protein Albumin Globulin Albumin/Globulin Ratio Procalcitonin Free T4 Total T3 Venous Blood Potassium 3.3 L 4.0 4.0 12/11/17 12/11/17 08:00 08:00 WBC 6.1 RBC 3.28 L Hgb 11.8 L Hct 39.4 MCV 120.1 H MCH 36.0 H MCHC 29.9 L RDW 17.2 H Plt Count 168 MPV 10.2 Gran % 81.6 H Lymph % (Auto) 11.5 L Sac % (Auto) 6.9 H Eos % (Auto) 0.0 L Baso % (Auto) 0.0 Gran # 4.96 Lymph # (Auto) 0.7 L Sac # (Auto) 0.4 Eos # (Auto) 0.0 Baso # (Auto) 0.00 pO2 VBG pH VBG pCO2 VBG HCO3 VBG Total CO2 VBG O2 Sat (Calc) VBG Base Excess VBG Potassium Sodium 135 Chloride 95 L Glucose Lactate FiO2 Potassium 4.2 Carbon Dioxide 29 Anion Gap 16 BUN 26 H Creatinine 2.5 H Est GFR ( Amer) 23 Est GFR (Non-Af Amer) 19 Random Glucose 315 H* D Calcium 8.9 Magnesium 2.1 Total Bilirubin 0.8 AST 29 ALT 21 Alkaline Phosphatase 209 H Total Protein 8.1 Albumin 3.6 Globulin 4.4 Albumin/Globulin Ratio 0.8 L Procalcitonin Free T4 Total T3 Venous Blood Potassium EKG/Cardiology Studies: Cardiology / EKG Studies 12/11/17 EKG [ELECTROCARDIOGRAM] Routine Comment: Reason For Exam: chest pain Fingerstick Blood Sugar Results: 316 Review of Systems - Review of Systems Review of Systems: per [facility] Critical Care Progress Note - Nutrition Nutrition: Nutrition Category Date Time Status Renal Diet [DIET] Diets 12/09/17 Lunch Ordered Assessment/Plan - Assessment and Plan (Free Text) Assessment: 72 y/o F with PMHx of ESRD on HD, CAD s/p stent with lifevest, DM, HTN presented to [facility] with complaints of back pain after she had sat down.ABG done in ER showed hypercapnic respiratory acididosis. BiPAP was subsequently started in ED. Pt was also seen to have pneumonia on xray. Empiric antibiotics were started. Pt was hypotensive in ED with BPs in the upper 60s/40. She was started on 1L bolus of fluids. Pt admitted to ICU for hypotension/AMS and septic shock likely secondary to RLL pneumonia. Pt followed by cardiology, nephrology, pulmonology and ID. Per undergoing MWF. Pt underwent HD yesterday, with 1.2L removed. Albumin and levophed were administered throughout HD. BP had improved and has been in the 120-130/40s. She was confused overnight, however this am she was AxO x 3, tolerating her diet. She was started on BiPAP today d/t CO2 narcosis on VBG. Plan: Neuro: Awake, alert & oriented x 3. Overnight was confused Hospital delirium vs dementia Pt answering questions, more responsive today compared to yesterday. Will check ABG for CO2 narcosis Neuro consult: Dr. Hensley GCS [address] Head: generalized atrophy. correlate for mastoiditis MRI: pt has pacemaker Cardio: Shock resolved, probably sepsis but no source found. Likely cardiogenic from renal failure BP: Hypotensive. Improved to 120-130/40s Not on vasopressors HR 90s Maintain MAP >65 Xopenex to prevent rapid atrial rate Midodrine 5mg po tid Metoprolol 25mg po per cardio recs Continue to monitor BP Echo showed LVEF 50% Resp: Hypercapnic respiratory failure 7.20/78/32.9/30.5 Lactate: 2.0 Currently on BiPAP at 20/8/40%/20 Pt maintaining her own airway Repeat VBG. ABG unable to be obtained d/t poor vascular access Chest xray (12/08/17): "RLL infiltrate inseparable from R pleural effusion" Continue Aztreonam Completed Vancomycin/Gentamicin x 1 dose ID Consult: Dr. Gonzales (Known to pt) Duoneb treatments q2H prn Solu-medrol 40mg IVP Maintain 02 sat >90% HOB 30 degrees GI: Distended Continue with protonix Abd Xray 12/09/17: Moderate small bowel distention at the central abdomen is identified with moderate amount of large bowel gas. Developing ileus not completely excluded nor would early small-bowel obstruction be excluded at this time. Further clinical correlation advised. Follow-up radiography recommended /Renal: Pt underwent UF 2kilos yesterday, will consider HD today per nephro recs ESRD on HD MWF BUN/Cr below baseline Nephrology following Replace lytes Maintain euvolemia Continue to monitor Endocrine: Hx of DM Maintain euglycemia Fingersticks q6h Heme: Macrocytic anemia at baseline platelets stable continue to monitor ID Continue aztreonam F/u panculture Will consider cefepime despite penicillin if condition worsens Stage 2 sacral ulcer: followed by wound care DVT/GI PPx: Hep/Protonix Dispo: If hemodynamically stable and ABG improved, pt will be ok to transfer out of ICU Case seen, examined and discussed with attending physician, Dr. Rosario <Viviana Rosario - Last Filed: 12/11/17 16:31> CCU Objective - Vital Signs / Intake & Output Vital Signs (Last 4 hours): Vital Signs Pulse Resp BP 12/11/17 15:06 73 15 12/11/17 15:05 74 12/11/17 15:04 72 12/11/17 15:03 73 24 12/11/17 15:02 73 28 H 12/11/17 15:01 77/33 L 12/11/17 15:00 72 26 H 12/11/17 14:59 73 12/11/17 14:58 73 30 H 12/11/17 14:57 73 20 12/11/17 14:56 73 25 H 12/11/17 14:55 69 26 H 12/11/17 14:54 73 19 12/11/17 14:53 73 19 12/11/17 14:52 74 39 H 12/11/17 14:51 72 21 12/11/17 14:50 73 16 12/11/17 14:49 73 23 12/11/17 14:48 74 12/11/17 14:47 72 22 12/11/17 14:46 103/37 L 12/11/17 14:45 72 17 12/11/17 14:44 73 43 H 12/11/17 14:43 72 27 H 12/11/17 14:42 72 22 12/11/17 14:41 73 24 12/11/17 14:40 73 17 12/11/17 14:39 73 18 12/11/17 14:38 73 26 H 12/11/17 14:37 74 18 12/11/17 14:36 74 25 H 12/11/17 14:35 73 25 H 12/11/17 14:34 74 24 12/11/17 14:33 74 25 H 12/11/17 14:32 75 19 12/11/17 14:31 75 12/11/17 14:30 112/42 L 12/11/17 14:29 79 20 12/11/17 14:28 76 23 12/11/17 14:27 77 19 12/11/17 14:26 76 29 H 12/11/17 14:25 77 21 12/11/17 14:24 76 28 H 12/11/17 14:23 77 21 12/11/17 14:22 77 42 H 12/11/17 14:21 102/60 12/11/17 14:20 75 17 12/11/17 14:00 84 Intake and Output (Last 8hrs): Intake & Output 12/11/17 12/11/17 12/11/17 06:59 14:59 22:59 Weight 79.605 kg - Medications Active Medications: Active Medications Generic Name Dose Route Start Last Admin Trade Name Freq PRN Reason Stop Dose Admin Albuterol/Ipratropium 3 ml 12/08/17 14:37 12/10/17 20:27 Duoneb 3 Mg/0.5 Mg (3 Ml) Ud IH 3 ml Q2H PRN Administration Shortness of Breath Bisacodyl 10 mg 12/10/17 10:00 12/11/17 09:56 Dulcolax RC 10 mg DAILY AUGUSTIN Administration Diphenhydramine HCl 25 mg 12/11/17 15:33 Benadryl PO Q8 PRN Itching / Pruritus Heparin Sodium (Porcine) 5,000 units 12/08/17 22:00 12/11/17 09:56 Heparin SC 5,000 units Q12 AUGUSTIN Administration Protocol Aztreonam 500 mg/ Sodium 100 mls @ 100 mls/hr 12/08/17 22:00 12/11/17 05:26 Chloride IVPB 100 mls/hr Q8 AUGUSTIN Administration Protocol NOREPINEPHRINE BIT/0.9 % NACL 4 mg in 250 mls @ 15 mls/hr 12/09/17 12:48 12/09/17 15:50 Levophed 4 Mg/ 250 Ml Ns Premixed IV 0 mcg/min .[id number] PRN 0 mls/hr TITRATE PER MD ORDER Titration Protocol 4 MCG/MIN Insulin Human Regular 0 units 12/10/17 16:30 12/11/17 11:30 Humulin R Low SC Not Given ACHS [facility] Protocol Methylprednisolone 40 mg 12/08/17 22:00 12/11/17 09:55 Solu-Medrol IVP 40 mg Q12 AUGUSTIN Administration Metoprolol Tartrate 25 mg 12/08/17 18:00 12/11/17 10:00 Lopressor PO 25 mg BID AUGUSTIN Administration Pantoprazole Sodium 40 mg 12/12/17 07:30 Protonix Ec Tab PO ACB AUGUSTIN Sevelamer HCl 1,600 mg 12/09/17 14:00 12/11/17 12:59 Renagel PO 1,600 mg TID AUGUSTIN Administration - Patient Studies Lab Studies: Microbiology Studies 12/08/17 13:30 Blood Culture - Preliminary Blood-Venous NO GROWTH AFTER 3 DAYS 12/08/17 10:50 Blood Culture - Preliminary Blood-Venous NO GROWTH AFTER 3 DAYS Lab Studies 12/11/17 12/11/17 12/11/17 Range/Units 11:35 08:01 08:00 WBC (4.5-11.0) 10^3/ul RBC (3.5-6.1) 10^6/uL Hgb (12.0-16.0) g/dL Hct (36.0-48.0) % MCV (80.0-105.0) fl MCH (25.0-35.0) pg MCHC (31.0-37.0) g/dl RDW (11.5-14.5) % Plt Count (120.0-450.0) 10^3/uL MPV (7.0-11.0) fl Gran % (50.0-68.0) % Lymph % (Auto) (22.0-35.0) % Sac % (Auto) (1.0-6.0) % Eos % (Auto) (1.5-5.0) % Baso % (Auto) (0.0-3.0) % Gran # (1.4-6.5) Lymph # (Auto) (1.2-3.4) Sac # (Auto) (0.1-0.6) Eos # (Auto) (0.0-0.7) Baso # (Auto) (0.0-2.0) K/mm3 pO2 (30-55) mm/Hg VBG pH (7.32-7.43) VBG pCO2 (40-60) VBG HCO3 (21-28) mmol/l VBG Total CO2 (22-28) mmol.L VBG O2 Sat (Calc) (40-65) % VBG Base Excess (0.0-2.0) mmol/L VBG Potassium (3.6-5.2) mmol/L Sodium 135 (132-148) mmol/L Chloride 95 L (98-107) mmol/L Glucose (65-105) mg/dl Lactate (0.7-2.1) mmol/L FiO2 % Potassium 4.2 (3.6-5.0) mmol/L Carbon Dioxide 29 (21-33) mmol/L Anion Gap 16 (10-20) BUN 26 H (7-21) mg/dL Creatinine 2.5 H (0.7-1.2) mg/dl Est GFR ( Amer) 23 Est GFR (Non-Af Amer) 19 POC Glucose (mg/dL) 337 H 316 H (65-110) mg/dL Random Glucose 315 H* D (70-110) mg/dL Calcium 8.9 (8.4-10.5) mg/dL Magnesium 2.1 (1.7-2.2) mg/dL Total Bilirubin 0.8 (0.2-1.3) mg/dL AST 29 (14-36) U/L ALT 21 (7-56) U/L Alkaline Phosphatase 209 H (38-126) U/L Total Protein 8.1 (5.8-8.3) g/dL Albumin 3.6 (3.0-4.8) g/dL Globulin 4.4 gm/dL Albumin/Globulin Ratio 0.8 L (1.1-1.8) Procalcitonin (0.19-0.49) NG/ML Venous Blood Potassium (3.6-5.2) mmol/L 12/11/17 12/11/17 12/11/17 Range/Units 08:00 06:25 02:45 WBC 6.1 (4.5-11.0) 10^3/ul RBC 3.28 L (3.5-6.1) 10^6/uL Hgb 11.8 L (12.0-16.0) g/dL Hct 39.4 (36.0-48.0) % MCV 120.1 H (80.0-105.0) fl MCH 36.0 H (25.0-35.0) pg MCHC 29.9 L (31.0-37.0) g/dl RDW 17.2 H (11.5-14.5) % Plt Count 168 (120.0-450.0) 10^3/uL MPV 10.2 (7.0-11.0) fl Gran % 81.6 H (50.0-68.0) % Lymph % (Auto) 11.5 L (22.0-35.0) % Sac % (Auto) 6.9 H (1.0-6.0) % Eos % (Auto) 0.0 L (1.5-5.0) % Baso % (Auto) 0.0 (0.0-3.0) % Gran # 4.96 (1.4-6.5) Lymph # (Auto) 0.7 L (1.2-3.4) Sac # (Auto) 0.4 (0.1-0.6) Eos # (Auto) 0.0 (0.0-0.7) Baso # (Auto) 0.00 (0.0-2.0) K/mm3 pO2 46 62 H (30-55) mm/Hg VBG pH 7.20 L 7.24 L (7.32-7.43) VBG pCO2 78.0 H* 69.0 H* (40-60) VBG HCO3 30.5 H 29.6 H (21-28) mmol/l VBG Total CO2 32.9 H 31.7 H (22-28) mmol.L VBG O2 Sat (Calc) 81.2 H 92.1 H (40-65) % VBG Base Excess 0.2 0.4 (0.0-2.0) mmol/L VBG Potassium 4.0 4.0 (3.6-5.2) mmol/L Sodium 134.0 134.0 (132-148) mmol/L Chloride 95.0 L 95.0 L (98-107) mmol/L Glucose 324 H 335 H (65-105) mg/dl Lactate 2.0 2.4 H (0.7-2.1) mmol/L FiO2 21.0 21.0 % Potassium (3.6-5.0) mmol/L Carbon Dioxide (21-33) mmol/L Anion Gap (10-20) BUN (7-21) mg/dL Creatinine (0.7-1.2) mg/dl Est GFR ( Amer) Est GFR (Non-Af Amer) POC Glucose (mg/dL) (65-110) mg/dL Random Glucose (70-110) mg/dL Calcium (8.4-10.5) mg/dL Magnesium (1.7-2.2) mg/dL Total Bilirubin (0.2-1.3) mg/dL AST (14-36) U/L ALT (7-56) U/L Alkaline Phosphatase (38-126) U/L Total Protein (5.8-8.3) g/dL Albumin (3.0-4.8) g/dL Globulin gm/dL Albumin/Globulin Ratio (1.1-1.8) Procalcitonin (0.19-0.49) NG/ML Venous Blood Potassium 4.0 4.0 (3.6-5.2) mmol/L 12/10/17 12/10/17 12/10/17 Range/Units 22:19 21:47 17:10 WBC (4.5-11.0) 10^3/ul RBC (3.5-6.1) 10^6/uL Hgb (12.0-16.0) g/dL Hct (36.0-48.0) % MCV (80.0-105.0) fl MCH (25.0-35.0) pg MCHC (31.0-37.0) g/dl RDW (11.5-14.5) % Plt Count (120.0-450.0) 10^3/uL MPV (7.0-11.0) fl Gran % (50.0-68.0) % Lymph % (Auto) (22.0-35.0) % Sac % (Auto) (1.0-6.0) % Eos % (Auto) (1.5-5.0) % Baso % (Auto) (0.0-3.0) % Gran # (1.4-6.5) Lymph # (Auto) (1.2-3.4) Sac # (Auto) (0.1-0.6) Eos # (Auto) (0.0-0.7) Baso # (Auto) (0.0-2.0) K/mm3 pO2 65 H 62 H (30-55) mm/Hg VBG pH 7.27 L 7.24 L (7.32-7.43) VBG pCO2 57.0 68.0 H* (40-60) VBG HCO3 26.2 29.1 H (21-28) mmol/l VBG Total CO2 27.9 31.2 H (22-28) mmol.L VBG O2 Sat (Calc) 94.3 H 92.4 H (40-65) % VBG Base Excess -1.7 L 0.0 (0.0-2.0) mmol/L VBG Potassium 3.3 L 3.9 (3.6-5.2) mmol/L Sodium 134.0 134.0 (132-148) mmol/L Chloride 98.0 95.0 L (98-107) mmol/L Glucose 295 H 247 H (65-105) mg/dl Lactate 2.5 H 2.6 H (0.7-2.1) mmol/L FiO2 21.0 21.0 % Potassium (3.6-5.0) mmol/L Carbon Dioxide (21-33) mmol/L Anion Gap (10-20) BUN (7-21) mg/dL Creatinine (0.7-1.2) mg/dl Est GFR ( Amer) Est GFR (Non-Af Amer) POC Glucose (mg/dL) 304 H (65-110) mg/dL Random Glucose (70-110) mg/dL Calcium (8.4-10.5) mg/dL Magnesium (1.7-2.2) mg/dL Total Bilirubin (0.2-1.3) mg/dL AST (14-36) U/L ALT (7-56) U/L Alkaline Phosphatase (38-126) U/L Total Protein (5.8-8.3) g/dL Albumin (3.0-4.8) g/dL Globulin gm/dL Albumin/Globulin Ratio (1.1-1.8) Procalcitonin (0.19-0.49) NG/ML Venous Blood Potassium 3.3 L 3.9 (3.6-5.2) mmol/L 12/10/17 12/10/17 12/10/17 Range/Units 15:51 09:58 07:55 WBC (4.5-11.0) 10^3/ul RBC (3.5-6.1) 10^6/uL Hgb (12.0-16.0) g/dL Hct (36.0-48.0) % MCV (80.0-105.0) fl MCH (25.0-35.0) pg MCHC (31.0-37.0) g/dl RDW (11.5-14.5) % Plt Count (120.0-450.0) 10^3/uL MPV (7.0-11.0) fl Gran % (50.0-68.0) % Lymph % (Auto) (22.0-35.0) % Sac % (Auto) (1.0-6.0) % Eos % (Auto) (1.5-5.0) % Baso % (Auto) (0.0-3.0) % Gran # (1.4-6.5) Lymph # (Auto) (1.2-3.4) Sac # (Auto) (0.1-0.6) Eos # (Auto) (0.0-0.7) Baso # (Auto) (0.0-2.0) K/mm3 pO2 (30-55) mm/Hg VBG pH (7.32-7.43) VBG pCO2 (40-60) VBG HCO3 (21-28) mmol/l VBG Total CO2 (22-28) mmol.L VBG O2 Sat (Calc) (40-65) % VBG Base Excess (0.0-2.0) mmol/L VBG Potassium (3.6-5.2) mmol/L Sodium (132-148) mmol/L Chloride (98-107) mmol/L Glucose (65-105) mg/dl Lactate (0.7-2.1) mmol/L FiO2 % Potassium (3.6-5.0) mmol/L Carbon Dioxide (21-33) mmol/L Anion Gap (10-20) BUN (7-21) mg/dL Creatinine (0.7-1.2) mg/dl Est GFR ( Amer) Est GFR (Non-Af Amer) POC Glucose (mg/dL) 199 H 221 H (65-110) mg/dL Random Glucose (70-110) mg/dL Calcium (8.4-10.5) mg/dL Magnesium (1.7-2.2) mg/dL Total Bilirubin (0.2-1.3) mg/dL AST (14-36) U/L ALT (7-56) U/L Alkaline Phosphatase (38-126) U/L Total Protein (5.8-8.3) g/dL Albumin (3.0-4.8) g/dL Globulin gm/dL Albumin/Globulin Ratio (1.1-1.8) Procalcitonin 0.81 H (0.19-0.49) NG/ML Venous Blood Potassium (3.6-5.2) mmol/L Laboratory Results - last 24 hr 12/10/17 12/10/17 12/10/17 07:55 09:58 15:51 WBC RBC Hgb Hct MCV MCH MCHC RDW Plt Count MPV Gran % Lymph % (Auto) Sac % (Auto) Eos % (Auto) Baso % (Auto) Gran # Lymph # (Auto) Sac # (Auto) Eos # (Auto) Baso # (Auto) pO2 VBG pH VBG pCO2 VBG HCO3 VBG Total CO2 VBG O2 Sat (Calc) VBG Base Excess VBG Potassium Sodium Chloride Glucose Lactate FiO2 Potassium Carbon Dioxide Anion Gap BUN Creatinine Est GFR ( Amer) Est GFR (Non-Af Amer) POC Glucose (mg/dL) 221 H 199 H Random Glucose Calcium Magnesium Total Bilirubin AST ALT Alkaline Phosphatase Total Protein Albumin Globulin Albumin/Globulin Ratio Procalcitonin 0.81 H Venous Blood Potassium 12/10/17 12/10/17 12/10/17 17:10 21:47 22:19 WBC RBC Hgb Hct MCV MCH MCHC RDW Plt Count MPV Gran % Lymph % (Auto) Sac % (Auto) Eos % (Auto) Baso % (Auto) Gran # Lymph # (Auto) Sac # (Auto) Eos # (Auto) Baso # (Auto) pO2 62 H 65 H VBG pH 7.24 L 7.27 L VBG pCO2 68.0 H* 57.0 VBG HCO3 29.1 H 26.2 VBG Total CO2 31.2 H 27.9 VBG O2 Sat (Calc) 92.4 H 94.3 H VBG Base Excess 0.0 -1.7 L VBG Potassium 3.9 3.3 L Sodium 134.0 134.0 Chloride 95.0 L 98.0 Glucose 247 H 295 H Lactate 2.6 H 2.5 H FiO2 21.0 21.0 Potassium Carbon Dioxide Anion Gap BUN Creatinine Est GFR ( Amer) Est GFR (Non-Af Amer) POC Glucose (mg/dL) 304 H Random Glucose Calcium Magnesium Total Bilirubin AST ALT Alkaline Phosphatase Total Protein Albumin Globulin Albumin/Globulin Ratio Procalcitonin Venous Blood Potassium 3.9 3.3 L 12/11/17 12/11/17 12/11/17 02:45 06:25 08:00 WBC 6.1 RBC 3.28 L Hgb 11.8 L Hct 39.4 MCV 120.1 H MCH 36.0 H MCHC 29.9 L RDW 17.2 H Plt Count 168 MPV 10.2 Gran % 81.6 H Lymph % (Auto) 11.5 L Sac % (Auto) 6.9 H Eos % (Auto) 0.0 L Baso % (Auto) 0.0 Gran # 4.96 Lymph # (Auto) 0.7 L Sac # (Auto) 0.4 Eos # (Auto) 0.0 Baso # (Auto) 0.00 pO2 62 H 46 VBG pH 7.24 L 7.20 L VBG pCO2 69.0 H* 78.0 H* VBG HCO3 29.6 H 30.5 H VBG Total CO2 31.7 H 32.9 H VBG O2 Sat (Calc) 92.1 H 81.2 H VBG Base Excess 0.4 0.2 VBG Potassium 4.0 4.0 Sodium 134.0 134.0 Chloride 95.0 L 95.0 L Glucose 335 H 324 H Lactate 2.4 H 2.0 FiO2 21.0 21.0 Potassium Carbon Dioxide Anion Gap BUN Creatinine Est GFR ( Amer) Est GFR (Non-Af Amer) POC Glucose (mg/dL) Random Glucose Calcium Magnesium Total Bilirubin AST ALT Alkaline Phosphatase Total Protein Albumin Globulin Albumin/Globulin Ratio Procalcitonin Venous Blood Potassium 4.0 4.0 12/11/17 12/11/17 12/11/17 08:00 08:01 11:35 WBC RBC Hgb Hct MCV MCH MCHC RDW Plt Count MPV Gran % Lymph % (Auto) Sac % (Auto) Eos % (Auto) Baso % (Auto) Gran # Lymph # (Auto) Sac # (Auto) Eos # (Auto) Baso # (Auto) pO2 VBG pH VBG pCO2 VBG HCO3 VBG Total CO2 VBG O2 Sat (Calc) VBG Base Excess VBG Potassium Sodium 135 Chloride 95 L Glucose Lactate FiO2 Potassium 4.2 Carbon Dioxide 29 Anion Gap 16 BUN 26 H Creatinine 2.5 H Est GFR ( Amer) 23 Est GFR (Non-Af Amer) 19 POC Glucose (mg/dL) 316 H 337 H Random Glucose 315 H* D Calcium 8.9 Magnesium 2.1 Total Bilirubin 0.8 AST 29 ALT 21 Alkaline Phosphatase 209 H Total Protein 8.1 Albumin 3.6 Globulin 4.4 Albumin/Globulin Ratio 0.8 L Procalcitonin Venous Blood Potassium EKG/Cardiology Studies: Cardiology / EKG Studies 12/11/17 EKG [ELECTROCARDIOGRAM] Routine Comment: Reason For Exam: chest pain Critical Care Progress Note - Nutrition Nutrition: Nutrition Category Date Time Status Renal Diet [DIET] Diets 12/09/17 Lunch Ordered Addendum Addendum: 12/11/17 16:30 ICU Attending Addendum Patient seen and examined. Case reviewed on round with housestaff. Agree with resident note above with the following additions/exceptions: 72F with ESRD on HD, MWF, COPD, dementia, presents from home s/p fall. Shock resolved. Possibly sepsis but no source identified. Likely cardiogenic from renal failure. HCRF, appears to be maintaining her own airway. Awake and alert however confused. \\ Unable to get ABG however VBG shows acidemia with elevated PCo2 cont BIpap for today Broad spectrum abx, as per ID HD this am as per Renal rest of care above Viviana Rosario MD Chronometer Assembler Critical Care Time: 31mins
[2017-12-11] MEDS: Albumin Human 25% (12.5 gm/50 ml) IV SCH (13:02)
--- NOTE | 2017-12-11 14:03 | PN ---
DATE: 12/11/2017 SUBJECTIVE: The patient is seen lying in bed in the ICU. She is currently on BiPAP. She is awake. She is alert. She recognizes me. She is trying to verbalize something, which I am not able to understand. She complains of itching. She complains of allergies. She denies any shortness of breath, but she is tachypneic. She complains of some chest pressure, pointing toward the left side of her chest. PHYSICAL EXAMINATION: GENERAL: Obese elderly lady, lying in bed in the ICU. VITAL SIGNS: Blood pressure 118/60, heart rate 92, respiratory rate 18-20, temperature 99.3, T-max is 99.9. HEENT: Normocephalic, atraumatic, positive pallor. NECK: Supple, no JVD. LUNGS: Bilateral equal air entry, bilateral equal expansion, no rales. CARDIAC: S1 and S2, regular rate and rhythm, no murmur, no rub. ABDOMEN: Obese, distended, soft, nontender, bowel sounds present. EXTREMITIES: Swelling of the upper extremities and 1+ pitting edema of the lower extremities. INTAKE AND OUTPUT: Not charted. LABORATORY DATA: WBC 6, hemoglobin 11.8, hematocrit 39, platelets 168. Sodium 135, potassium 4.2, chloride of 95, CO2 of 29, BUN 26, creatinine 2.5, glucose 315, calcium 8.9, magnesium 2.1, albumin 3.6. Echocardiogram showing left ventricular systolic function is normal, severely dilated right ventricle, decreased right ventricular systolic function, moderate tricuspid regurg. CURRENT MEDICATIONS: Aztreonam 500 every 8, DuoNeb, insulin, Levophed discontinued, Lopressor 25 b.i.d., Protonix, sevelamer, Solu-Medrol 40 every 12. ProAmatine 10 t.i.d. discontinued? PLAN: 1. Severe right ventricular systolic dysfunction, hypotension. 2. Right lower lobe pneumonia? 3. Asthma exacerbation. 4. Respiratory failure. 5. Severe profound hypotension. 6. Noninsulin-dependent diabetes mellitus. 7. End-stage renal disease. 8. Secondary hyperparathyroidism. PLAN: 1. Ultrafiltration today to remove 2 kilos. 2. Dialysis tomorrow. 3. Continue to monitor in the ICU. 4. Benadryl. 5. Taper steroids. 6. Continue antibiotics as per ICU. 7. Dose all the medications for creatinine clearance less than 10. 8. Case discussed with ICU staff at length, case discussed with dialysis staff. More than 35 minutes spent in the care of this critically ill patient. Marlyn Snow MD
--- NOTE | 2017-12-11 18:52 | CP.PCM.PN ---
Subjective - Date & Time of Evaluation Date of Evaluation: 12/11/17 Time of Evaluation: 17:45 - Subjective Subjective: Infectious Disease Follow Up: December 11, 2017 72 yo [place]ian speaking female [place] [facility] pain on sitting down. Patient was found to be hypotensive in ER. The patient has an extensive medical history that includes ESRD on HD, CAD, CHF with EF of 35%, occluded heart vessels, DM, HTN, and ischemic cardiomyopathy. The patient is unable to provide any additional information at this time. Daughter is at bedside. Blood pressure improved after 1L fluid bolus on admission. The patient is awake and alert. She can follow commands. Received HD yesterday. She is able to answer questions appropriately. Found to still have some respiratory acidosis and maintained on BiPAP today. Objective - Vital Signs/Intake and Output Vital Signs (last 24 hours): Temp Pulse Resp BP Pulse Ox 98.8 F 78 15 92/66 L 100 12/11/17 16:00 12/11/17 17:35 12/11/17 15:06 12/11/17 17:35 12/11/17 08:50 Intake and Output: 12/11/17 12/11/17 06:59 18:59 Intake Total 880 Output Total 2301 Balance -1421 - Medications Medications: Current Medications Albuterol/Ipratropium (Duoneb 3 Mg/0.5 Mg (3 Ml) Ud) 3 ml IH Q2H PRN PRN Reason: Shortness of Breath Last Admin: 12/10/17 20:27 Dose: 3 ml Bisacodyl (Dulcolax) 10 mg RC DAILY [facility] Last Admin: 12/11/17 09:56 Dose: 10 mg Diphenhydramine HCl (Benadryl) 25 mg PO Q8 PRN PRN Reason: Itching / Pruritus Heparin Sodium (Porcine) (Heparin) 5,000 units SC Q12 [facility]; Protocol Last Admin: 12/11/17 09:56 Dose: 5,000 units Aztreonam 500 mg/ Sodium (Chloride) 100 mls @ 100 mls/hr IVPB Q8 [facility]; Protocol Last Admin: 12/11/17 15:00 Dose: 100 mls/hr NOREPINEPHRINE BIT/0.9 % NACL (Levophed 4 Mg/ 250 Ml Ns Premixed) 4 mg in 250 mls @ 15 mls/hr IV .[id number] PRN; Protocol PRN Reason: TITRATE PER MD ORDER Last Titration: 12/09/17 15:50 Dose: 0 mcg/min, 0 mls/hr Insulin Human Regular (Humulin R Low) 0 units SC ACHS [facility]; Protocol Last Admin: 12/11/17 17:34 Dose: 4 u Methylprednisolone (Solu-Medrol) 40 mg IVP Q12 [facility] Last Admin: 12/11/17 09:55 Dose: 40 mg Metoprolol Tartrate (Lopressor) 25 mg PO BID [facility] Last Admin: 12/11/17 17:35 Dose: Not Given Pantoprazole Sodium (Protonix Ec Tab) 40 mg PO ACB [facility] Sevelamer HCl (Renagel) 1,600 mg PO TID [facility] Last Admin: 12/11/17 17:35 Dose: 1,600 mg - Labs Labs: 12/11/17 08:00 12/11/17 08:00 - Constitutional Appears: Non-toxic, No Acute Distress, Chronically Ill - Head Exam Head Exam: ATRAUMATIC, NORMOCEPHALIC - Eye Exam Eye Exam: EOMI, PERRL Pupil Exam: NORMAL ACCOMODATION, PERRL - ENT Exam ENT Exam: Mucous Membranes Moist, Normal External Ear Exam, TM's Normal Bilaterally - Neck Exam Neck Exam: Full ROM, Normal Inspection - Respiratory Exam Respiratory Exam: Decreased Breath Sounds, Clear to Ausculation Bilateral. absent: Rales, Rhonchi - Cardiovascular Exam Cardiovascular Exam: REGULAR RHYTHM, RRR, +S1, +S2 - GI/Abdominal Exam GI & Abdominal Exam: Distended, Soft. absent: Tenderness - Extremities Exam Extremities Exam: Normal Inspection - Neurological Exam Neurological Exam: Alert, Awake Additional comments: AAO x 2 at this time. Was initially hypotensive with AMS. - Psychiatric Exam Psychiatric exam: Normal Affect, Normal Mood - Skin Skin Exam: Dry, Intact, Warm Assessment and Plan - Assessment and Plan (Free Text) Assessment: 72 yo female known to me from previous hospital[place] [facility] The patient with initial complaint of back pain on sitting down . Found to be hypotensiive at this time. Antibiotics and fluids started. The patient is more awake and alert compared to admission. Blood pressure has improved with 1L of fluids. Started on Aztreonam for antibiotic coverage with single dose of Vancomycin IV and Gentamicin IV. Nam cultures sent. No leukocytosis. Supportive care. Case discussed with Dr. Garrett. If there is continued worsening, will have to consider use of Cefepime despite PCN allergy. Awaiting culture results. The patient is awake and alert now but confused. The patient can follow commands. Not hypotensive at this time. Cultures with no growth at this time a fter 3 days. Maintain Broad antibiotic coverage at this time. No specific source of sepsis seen. Septic versus Cardiogenic shock on initial presentation. No specific infectious etiology found at this time. Consider 7 to 10 days of antibiotics in total. Supportive care. Thank you for allowing me to participate in the care of this patient, we will follow with you.
[2017-12-11 21:51] LABS: HEPATITIS B SURFACE AG Negative (NEGATIVE)
[2017-12-11 21:57] LABS: HEPATITIS B CORE AB NEGATIVE (NEGATIVE)
--- NOTE | 2017-12-11 23:01 | PN ---
DATE: 12/11/2017 PULMONARY PROGRESS NOTE REFERRING PHYSICIAN: Taylor House MD SUBJECTIVE: She is lying in the bed, head at 45 degrees, on nasal cannula, feels better, still has some cough and shortness of breath. No hemoptysis. No emesis. No hematuria. No diarrhea. Has a upper and lower extremity swelling. OBJECTIVE: GENERAL: No acute distress. VITAL SIGNS: Temperature is 98.5, heart rate is 79, respiratory rate is 24, blood pressure 92/56, pulse ox 88% on nasal cannula. HEENT: Moist mucous membrane. Crowded airway. Mallampati score is 4. NECK: Supple. No JVD. LUNGS: Have a poor airflow with expiratory wheezing and rhonchi. HEART: S1 and S2. ABDOMEN: Soft, nontender, no organomegaly. EXTREMITIES: Does have edema. NEUROLGIC: Awake and alert. Follows simple command, but confused. MEDICATIONS: She is on Benadryl 25 mg every 8 hour p.r.n., Dulcolax 10 mg rectally daily, DuoNeb every 2 hour p.r.n., heparin 5000 units subcu every 12 hour, metoprolol tartrate 25 mg twice a day, Protonix 40 mg before meals , Renagel 1600 mg three times a day, Solu-Medrol 40 mg every 12 hour. LABORATORY DATA: Shows hemoglobin 11.8, hematocrit 39.4, WBC 6.1, platelet count is 168. VBG show pH 7.20, pCO2 of 78, O2 is 46. Sodium 135, potassium 4.2, chloride 95, bicarbonate 21, BUN 26, creatinine 2.5, glucose 337, calcium is 8.9, magnesium 2.1, AST 29, ALT 21, alk phos is 209 and albumin is 3.6. Microbiology, blood culture, nares culture, there is no growth. IMPRESSION AND PLAN: Respiratory failure with CO2 retention and hypoxemia, chronic obstructive lung disease, pulmonary infiltrates, renal failure, dialysis dependent, pulmonary hypertension, cardiomyopathy, coronary artery disease, diabetes. Pulmonary point of view, slowly improving. We will cut down some of the steroids. Continue antibiotics. BiPAP while sleeping and/or when lethargic, dialysis. Continue Dulcolax on daily basis. Has some ileus. Thank you and we will follow with you. Critical care time is more than 35 minutes. Joss Arias MD [facility] # [id number]
--- NOTE | 2017-12-12 01:44 | PN ---
DATE: 12/11/2017 SUBJECTIVE: The patient was seen and examined on the bedside on 12/11/2017, getting dialysis, lying down comfortably. Awake and alert. Used BiPAP. She is trying to verbalize something which sometimes do not make sense. No fever. No chills. No shortness of breath. No hematuria, no hematochezia. PHYSICAL EXAMINATION: VITAL SIGNS: Temperature 98.6, blood pressure 118/60, heart rate 92, respiratory rate 18. HEENT: Head normocephalic, atraumatic. Eyes; PERRLA. Extraocular muscles intact. Conjunctivae clear. Nose patent. Mucous membrane moist. NECK: Supple. No carotid bruit. No JVD or thyromegaly. CHEST: Bilaterally symmetrical. HEART: S1 and S2 positive. LUNGS: Clear to auscultation. ABDOMEN: Soft. Bowel sounds positive. No organomegaly. EXTREMITIES: No edema. No cyanosis. NEUROLOGICAL: The patient is awake and alert. Moving all 4 extremities. No focal deficits, but confused. LABORATORY DATA: White blood cells 6.3, hemoglobin 11.8, hematocrit 39, platelets 115. Sodium 135, potassium 4.2, BUN 23, creatinine 2.5. MEDICATIONS: Aztreonam, DuoNeb, Levophed. Discontinued Lopressor, Protonix, sevelamer, Solu-Medrol, ProAir. ASSESSMENT AND PLAN: Ms. Debby Olguin, 72-year-old lady with severe right ventricular systolic dysfunction, hypotension, right lower lobe pneumonia, asthma exacerbation, respiratory failure, severe profound hypotension, [id number] diabetes mellitus, end-stage renal disease, getting hemodialysis, secondary hyperparathyroidism. Got dialysis today and according to Dr. Snow, dialysis tomorrow also. Continue monitoring in the ICU. Give Benadryl. Taper steroid. Continue antibiotics. Gastrointestinal and deep venous thrombosis prophylaxes. Repeat labs. We will follow up. Taylor House MD
[2017-12-12 07:17] LABS: BASO # 0.01 K/mm3 (0.0-2.0); BASO % 0.1 % (0.0-3.0); GRAN # 7.18 (1.4-6.5); HEMOGLOBIN 12.3 g/dL (12.0-16.0); LYMPH % 11.6 % (22.0-35.0); MEAN CELL VOLUME 120.8 fl (80.0-105.0); MEAN CORPUSCULAR HGB CONC 29.8 g/dl (31.0-37.0); MEAN PLATELET VOLUME 10.5 fl (7.0-11.0); MONO # 0.6 (0.1-0.6); MONO % 6.3 % (1.0-6.0); RBC 3.42 10^6/uL (3.5-6.1); RED CELL DISTRIBUTION WIDTH 16.9 % (11.5-14.5); WHITE BLOOD COUNT 8.8 10^3/uL (4.5-11.0)
[2017-12-12] MEDS: Arformoterol 15 mcg/2 ml Inh Sol IH SCH ×2 (07:34→20:05)
[2017-12-12] MEDS: Budesonide 0.5 mg/2 ml Inhal Susp UD IH SCH ×2 (07:34→20:04)
[2017-12-12 08:05] LABS: ALB/GLOB RATIO 0.8 (1.1-1.8); ALBUMIN 3.4 g/dL (3.0-4.8); CALCIUM 8.9 mg/dL (8.4-10.5)
[2017-12-12] MEDS: Insulin Reg-LOW-Coverage SC SCH (08:23)
[2017-12-12] MEDS: Pantoprazole 40 mg EC Tab PO SCH (08:32)
--- NOTE | 2017-12-12 09:00 | PN ---
DATE: 12/11/2017 REASON FOR CONSULTATION AND FOLLOWUP: Paroxysmal atrial fibrillation, cardiomyopathy, coronary artery disease on Life-Vest, admitted with altered mental status. SUBJECTIVE: The patient is much awake and alert, off vasopressors, off Primacor. Repeat echo shows preserved LV function and status post removal of vest as the battery drained out as is preserved LV function. OBJECTIVE: GENERAL: Not in any apparent distress, lying flat on the bed, much awake and alert. VITAL SIGNS: Temperature afebrile, heart rate 84, blood pressure 118/60. HEENT: PERRLA. Extraocular muscles intact. NECK: Supple. No carotid bruit. No thyromegaly. CHEST: Clear to auscultation. HEART: S1 and S2 regular. ABDOMEN: Soft. EXTREMITIES: Clubbing and cyanosis negative. LABORATORY DATA: Blood workup: WBC 6.1, hemoglobin 11.8, hematocrit 39.4, platelet count 168. Chemistry shows sodium 135, potassium 4.2, chloride 95, anion gap of 16, BUN 26, creatinine 2.5. IMPRESSION: A 72-year-old female with past medical history significant for coronary artery disease; status post end-stage renal disease, on dialysis; paroxysmal atrial fibrillation; admitted with very weak, lethargic, altered mental status. Recently, after being discharged from [facility]. The patient has a history of coronary artery disease, status post stent 5 years ago. The patient is being followed at [facility] by Dr. Sussy De La O and Dr. Motta group. Recently, the patient has seen Dr. Tuttle, professor of music, and plan was to do defibrillator, but according to the patient's daughter, due to pulmonary edema, it was canceled. Admitted here with a LifeVest. Last echo showed preserved left ventricular function. Yesterday, the patient's echocardiogram repeated again shows ejection fraction 50-55%, lower limit normal. Also, the patient's battery for the Life-Vest has ran out, so Life-Vest was discontinued. At this time, the patient admitted with altered mental status, right lower lobe pneumonia, paroxysmal atrial fibrillation. The patient was started on Primacor by the bookmaker's clerk, did not tolerate, discontinued. Currently, the patient is fairly stable. RECOMMENDATIONS: Continue broad-spectrum antibiotic for pneumonia. Continue dialysis. Continue DVT prophylaxis. Continue Lopressor 25 p.o. b.i.d. Upon discharge, the patient will be followed by Dr. Tuttle for evaluation of AICD. So far, the patient's LV function is preserved. Yesterday, the patient had echocardiography done that revealed ejection fraction 50-55%. Flattening of IVS consistent with right ventricular pressure volume overload. Right ventricle severely dilated. Systolic function of RV severely reduced. Trace aortic regurgitation. Mild valvular aortic stenosis versus aortic sclerosis. Trace to mild mitral regurgitation. Moderate tricuspid regurgitation. RV systolic pressure 34 mmHg which is being Underestimated because the configuration is a TR jet. Continue aggressive dialysis. Discussed with the daughter, Rivka Grace, about the patient's condition. We will follow with you. Thank you, Dr. House for providing us the opportunity in taking care of the patient, Debby Olguin. Joss Bah MD [id number]
[2017-12-12] MEDS: MethylPREDNISolone 40 mg Vial IVP SCH ×2 (09:44→21:30)
[2017-12-12] MEDS: Insulin Reg-HIGH-Coverage SC SCH ×3 (11:30→22:32)
--- NOTE | 2017-12-12 13:11 | CP.CCUPN ---
<Ryder Alamo - Last Filed: 12/12/17 15:13> CCU Subjective - Physician Review Subjective (Free Text): CRITICAL CARE PROGRESS NOTE FOR DR. LI Alamo PGY-1 Pt seen and examined at bedside this am. No acute nursing events overnight. She denies reports pain in her R knee during interview. She is awake, alert and oriented x 3. She denies 12 point ROS CCU Objective - Vital Signs / Intake & Output Vital Signs (Last 4 hours): Vital Signs Pulse Resp BP 12/12/17 10:35 88 16 12/12/17 10:34 82 17 12/12/17 10:33 90/50 L 12/12/17 10:32 80 10 L 12/12/17 10:31 88 25 H 12/12/17 10:30 78/28 L 12/12/17 10:29 86 11 L 12/12/17 10:28 90 15 12/12/17 10:27 82 12 12/12/17 10:26 86 24 12/12/17 10:25 80 12/12/17 10:24 85 5 L 12/12/17 10:23 80 12/12/17 10:22 84 24 12/12/17 10:21 86 13 12/12/17 10:20 86 16 12/12/17 10:19 87 15 12/12/17 10:18 82 14 12/12/17 10:17 94 H 9 L 12/12/17 10:16 78 12/12/17 10:15 102/56 L 12/12/17 10:14 82 14 12/12/17 10:13 87 12/12/17 10:12 85 10 L 12/12/17 10:11 79 6 L 12/12/17 10:10 91 H 5 L 12/12/17 10:09 83 21 12/12/17 10:08 85 12/12/17 10:07 83 12/12/17 10:06 89 12 12/12/17 10:05 91 H 11 L 12/12/17 10:04 84 21 12/12/17 10:03 83 11 L 12/12/17 10:02 82 12/12/17 10:01 84 12/12/17 10:00 76 121/57 L 12/12/17 09:59 85 11 L 12/12/17 09:58 80 25 H 12/12/17 09:57 85 10 L 12/12/17 09:56 89 12/12/17 09:55 88 9 L 12/12/17 09:54 94 H 10 L 12/12/17 09:53 81 12/12/17 09:52 78 12/12/17 09:51 89 27 H 12/12/17 09:50 84 17 12/12/17 09:49 86 12/12/17 09:48 84 21 12/12/17 09:47 84 12/12/17 09:46 82 82/38 L 12/12/17 09:45 82 82/38 L Intake and Output (Last 8hrs): Intake & Output 12/11/17 12/12/17 12/12/17 22:59 06:59 14:59 Intake Total 880 Output Total 2301 Balance -1421 Intake: IV 100 Right Antecubital 100 Oral 780 Output: Urine 0 Urine, Voided 0 Stool 1 Other 2300 Other: # Bowel Movements 1 - Physical Exam Head: Positive for: Atraumatic, Normocephalic Pupils: Positive for: PERRL Extroacular Muscles: Positive for: EOMI Conjunctiva: Positive for: Normal Mouth: Positive for: Moist Mucous Membranes Neck: Positive for: Normal Range of Motion Respiratory/Chest: Positive for: Wheezes. Negative for: Respiratory Distress, Accessory Muscle Use Cardiovascular: Positive for: Regular Rate and Rhythm, Normal S1, S2. Negative for: Murmurs Abdomen: Positive for: Distention. Negative for: Tenderness, Peritoneal Signs, Rebound Back: Positive for: Normal Inspection Upper Extremity: Positive for: Normal Inspection. Negative for: Cyanosis, Edema Lower Extremity: Positive for: Normal Inspection. Negative for: Edema Neurological: Positive for: GCS=15, CN II-XII Intact, Speech Normal Skin: Positive for: Warm, Dry, Normal Color. Negative for: Rashes Psychiatric: Positive for: Alert, Oriented x 3, Normal Insight, Normal Concentration - Medications Active Medications: Active Medications Generic Name Dose Route Start Last Admin Trade Name Freq PRN Reason Stop Dose Admin Albuterol/Ipratropium 3 ml 12/08/17 14:37 12/10/17 20:27 Duoneb 3 Mg/0.5 Mg (3 Ml) Ud IH 3 ml Q2H PRN Administration Shortness of Breath Arformoterol Tartrate 15 mcg 12/12/17 08:00 12/12/17 07:34 Brovana IH 15 mcg [id number] AUGUSTIN Administration Bisacodyl 10 mg 12/10/17 10:00 12/11/17 09:56 Dulcolax RC 10 mg DAILY AUGUSTIN Administration Budesonide 0.5 mg 12/12/17 08:00 12/12/17 07:34 Pulmicort Respules IH 0.5 mg [id number] AUGUSTIN Administration Carvedilol 3.125 mg 12/12/17 10:00 12/12/17 09:46 Coreg PO Not Given BID AUGUSTIN Diphenhydramine HCl 25 mg 12/11/17 15:33 Benadryl PO Q8 PRN Itching / Pruritus Heparin Sodium (Porcine) 5,000 units 12/08/17 22:00 12/12/17 09:44 Heparin SC 5,000 units Q12 AUGUSTIN Administration Protocol NOREPINEPHRINE BIT/0.9 % NACL 4 mg in 250 mls @ 15 mls/hr 12/09/17 12:48 12/09/17 15:50 Levophed 4 Mg/ 250 Ml Ns Premixed IV 0 mcg/min .[id number] PRN 0 mls/hr TITRATE PER MD ORDER Titration Protocol 4 MCG/MIN Aztreonam 100 mls @ 100 mls/hr 12/12/17 14:00 Azactam 1 Gm IVPB 12/12/17 22:59 Q8 [facility] Protocol Insulin Human Regular 0 units 12/12/17 11:30 Humulin R High SC ACHS [facility] Protocol Methylprednisolone 40 mg 12/08/17 22:00 12/12/17 09:44 Solu-Medrol IVP 40 mg Q12 AUGUSTIN Administration Metoprolol Tartrate 25 mg 12/08/17 18:00 12/12/17 09:45 Lopressor PO Not Given BID AUGUSTIN Pantoprazole Sodium 40 mg 12/12/17 07:30 12/12/17 08:32 Protonix Ec Tab PO 40 mg ACB AUGUSTIN Administration Sevelamer HCl 1,600 mg 12/09/17 14:00 12/12/17 09:44 Renagel PO 1,600 mg TID AUGUSTIN Administration - Patient Studies Lab Studies: Microbiology Studies 12/08/17 10:50 Blood Culture - Preliminary Blood-Venous NO GROWTH AFTER 4 DAYS 12/08/17 13:30 Blood Culture - Preliminary Blood-Venous NO GROWTH AFTER 3 DAYS Lab Studies 12/12/17 12/12/17 12/11/17 Range/Units 06:50 06:50 21:49 WBC 8.8 D (4.5-11.0) 10^3/uL RBC 3.42 L (3.5-6.1) 10^6/uL Hgb 12.3 (12.0-16.0) g/dL Hct 41.3 (36.0-48.0) % MCV 120.8 H (80.0-105.0) fl MCH 36.0 H (25.0-35.0) pg MCHC 29.8 L (31.0-37.0) g/dl RDW 16.9 H (11.5-14.5) % Plt Count 129 (120.0-450.0) 10^3/uL MPV 10.5 (7.0-11.0) fl Gran % 82.0 H (50.0-68.0) % Lymph % (Auto) 11.6 L (22.0-35.0) % [place] % (Auto) 6.3 H (1.0-6.0) % Eos % (Auto) 0.0 L (1.5-5.0) % Baso % (Auto) 0.1 (0.0-3.0) % Gran # 7.18 H (1.4-6.5) Lymph # (Auto) 1.0 L (1.2-3.4) [place] # (Auto) 0.6 (0.1-0.6) Eos # (Auto) 0.0 (0.0-0.7) Baso # (Auto) 0.01 (0.0-2.0) K/mm3 Sodium 136 (132-148) mmol/L Potassium 4.0 (3.6-5.0) mmol/L Chloride 98 (98-107) mmol/L Carbon Dioxide 26 (21-33) mmol/L Anion Gap 16 (10-20) BUN 38 H (7-21) mg/dL Creatinine 3.2 H (0.7-1.2) mg/dl Est GFR ( Amer) 17 Est GFR (Non-Af Amer) 14 POC Glucose (mg/dL) 236 H (65-110) mg/dL Random Glucose 255 H (70-110) mg/dL Calcium 8.9 (8.4-10.5) mg/dL Phosphorus 4.4 (2.5-4.5) mg/dL Magnesium 2.1 (1.7-2.2) mg/dL Total Bilirubin 0.7 (0.2-1.3) mg/dL AST 22 (14-36) U/L ALT 23 (7-56) U/L Alkaline Phosphatase 186 H (38-126) U/L Total Protein 7.5 (5.8-8.3) g/dL Albumin 3.4 (3.0-4.8) g/dL Globulin 4.2 gm/dL Albumin/Globulin Ratio 0.8 L (1.1-1.8) Hep Bs Antigen (NEGATIVE) Hep Bs Antibody (NEGATIVE) Hep B Core IgM Ab (NEGATIVE) 12/11/17 12/11/17 12/11/17 Range/Units 16:13 16:12 13:30 WBC (4.5-11.0) 10^3/uL RBC (3.5-6.1) 10^6/uL Hgb (12.0-16.0) g/dL Hct (36.0-48.0) % MCV (80.0-105.0) fl MCH (25.0-35.0) pg MCHC (31.0-37.0) g/dl RDW (11.5-14.5) % Plt Count (120.0-450.0) 10^3/uL MPV (7.0-11.0) fl Gran % (50.0-68.0) % Lymph % (Auto) (22.0-35.0) % [place] % (Auto) (1.0-6.0) % Eos % (Auto) (1.5-5.0) % Baso % (Auto) (0.0-3.0) % Gran # (1.4-6.5) Lymph # (Auto) (1.2-3.4) [place] # (Auto) (0.1-0.6) Eos # (Auto) (0.0-0.7) Baso # (Auto) (0.0-2.0) K/mm3 Sodium (132-148) mmol/L Potassium (3.6-5.0) mmol/L Chloride (98-107) mmol/L Carbon Dioxide (21-33) mmol/L Anion Gap (10-20) BUN (7-21) mg/dL Creatinine (0.7-1.2) mg/dl Est GFR ( Amer) Est GFR (Non-Af Amer) POC Glucose (mg/dL) 344 H 460 H* (65-110) mg/dL Random Glucose (70-110) mg/dL Calcium (8.4-10.5) mg/dL Phosphorus (2.5-4.5) mg/dL Magnesium (1.7-2.2) mg/dL Total Bilirubin (0.2-1.3) mg/dL AST (14-36) U/L ALT (7-56) U/L Alkaline Phosphatase (38-126) U/L Total Protein (5.8-8.3) g/dL Albumin (3.0-4.8) g/dL Globulin gm/dL Albumin/Globulin Ratio (1.1-1.8) Hep Bs Antigen (NEGATIVE) Hep Bs Antibody Negative (NEGATIVE) Hep B Core IgM Ab (NEGATIVE) 12/11/17 Range/Units 13:30 WBC (4.5-11.0) 10^3/uL RBC (3.5-6.1) 10^6/uL Hgb (12.0-16.0) g/dL Hct (36.0-48.0) % MCV (80.0-105.0) fl MCH (25.0-35.0) pg MCHC (31.0-37.0) g/dl RDW (11.5-14.5) % Plt Count (120.0-450.0) 10^3/uL MPV (7.0-11.0) fl Gran % (50.0-68.0) % Lymph % (Auto) (22.0-35.0) % [place] % (Auto) (1.0-6.0) % Eos % (Auto) (1.5-5.0) % Baso % (Auto) (0.0-3.0) % Gran # (1.4-6.5) Lymph # (Auto) (1.2-3.4) [place] # (Auto) (0.1-0.6) Eos # (Auto) (0.0-0.7) Baso # (Auto) (0.0-2.0) K/mm3 Sodium (132-148) mmol/L Potassium (3.6-5.0) mmol/L Chloride (98-107) mmol/L Carbon Dioxide (21-33) mmol/L Anion Gap (10-20) BUN (7-21) mg/dL Creatinine (0.7-1.2) mg/dl Est GFR ( Amer) Est GFR (Non-Af Amer) POC Glucose (mg/dL) (65-110) mg/dL Random Glucose (70-110) mg/dL Calcium (8.4-10.5) mg/dL Phosphorus (2.5-4.5) mg/dL Magnesium (1.7-2.2) mg/dL Total Bilirubin (0.2-1.3) mg/dL AST (14-36) U/L ALT (7-56) U/L Alkaline Phosphatase (38-126) U/L Total Protein (5.8-8.3) g/dL Albumin (3.0-4.8) g/dL Globulin gm/dL Albumin/Globulin Ratio (1.1-1.8) Hep Bs Antigen Negative (NEGATIVE) Hep Bs Antibody (NEGATIVE) Hep B Core IgM Ab Negative (NEGATIVE) Laboratory Results - last 24 hr 12/11/17 12/11/17 12/11/17 13:30 13:30 16:12 WBC RBC Hgb Hct MCV MCH MCHC RDW Plt Count MPV Gran % Lymph % (Auto) [place] % (Auto) Eos % (Auto) Baso % (Auto) Gran # Lymph # (Auto) [place] # (Auto) Eos # (Auto) Baso # (Auto) Sodium Potassium Chloride Carbon Dioxide Anion Gap BUN Creatinine Est GFR ( Amer) Est GFR (Non-Af Amer) POC Glucose (mg/dL) 460 H* Random Glucose Calcium Phosphorus Magnesium Total Bilirubin AST ALT Alkaline Phosphatase Total Protein Albumin Globulin Albumin/Globulin Ratio Hep Bs Antigen Negative Hep Bs Antibody Negative Hep B Core IgM Ab Negative 12/11/17 12/11/17 12/12/17 16:13 21:49 06:50 WBC 8.8 D RBC 3.42 L Hgb 12.3 Hct 41.3 MCV 120.8 H MCH 36.0 H MCHC 29.8 L RDW 16.9 H Plt Count 129 MPV 10.5 Gran % 82.0 H Lymph % (Auto) 11.6 L [place] % (Auto) 6.3 H Eos % (Auto) 0.0 L Baso % (Auto) 0.1 Gran # 7.18 H Lymph # (Auto) 1.0 L [place] # (Auto) 0.6 Eos # (Auto) 0.0 Baso # (Auto) 0.01 Sodium Potassium Chloride Carbon Dioxide Anion Gap BUN Creatinine Est GFR ( Amer) Est GFR (Non-Af Amer) POC Glucose (mg/dL) 344 H 236 H Random Glucose Calcium Phosphorus Magnesium Total Bilirubin AST ALT Alkaline Phosphatase Total Protein Albumin Globulin Albumin/Globulin Ratio Hep Bs Antigen Hep Bs Antibody Hep B Core IgM Ab 12/12/17 06:50 WBC RBC Hgb Hct MCV MCH MCHC RDW Plt Count MPV Gran % Lymph % (Auto) [place] % (Auto) Eos % (Auto) Baso % (Auto) Gran # Lymph # (Auto) [place] # (Auto) Eos # (Auto) Baso # (Auto) Sodium 136 Potassium 4.0 Chloride 98 Carbon Dioxide 26 Anion Gap 16 BUN 38 H Creatinine 3.2 H Est GFR ( Amer) 17 Est GFR (Non-Af Amer) 14 POC Glucose (mg/dL) Random Glucose 255 H Calcium 8.9 Phosphorus 4.4 Magnesium 2.1 Total Bilirubin 0.7 AST 22 ALT 23 Alkaline Phosphatase 186 H Total Protein 7.5 Albumin 3.4 Globulin 4.2 Albumin/Globulin Ratio 0.8 L Hep Bs Antigen Hep Bs Antibody Hep B Core IgM Ab Fingerstick Blood Sugar Results: 238 Review of Systems - Review of Systems Review of Systems: per HPI Critical Care Progress Note - Nutrition Nutrition: Nutrition Category Date Time Status Renal Diet [DIET] Diets 12/09/17 Lunch Ordered Assessment/Plan - Assessment and Plan (Free Text) Assessment: 72 y/o F with PMHx of ESRD on HD, CAD s/p stent with lifevest, DM, HTN presented to [facility] with complaints of back pain after she had sat down.ABG done in ER showed hypercapnic respiratory acididosis. BiPAP was subsequently started in ED. Pt was also seen to have pneumonia on xray. Empiric antibiotics were started. Pt was hypotensive in ED with BPs in the upper 60s/40. She was started on 1L bolus of fluids. Pt admitted to ICU for hypotension/AMS and septic shock likely secondary to RLL pneumonia. Pt followed by cardiology, nephrology, pulmonology and ID. Per undergoing HD MWF. Pt to undergo HD today. BP has been stable. Plan: Neuro: Awake, alert & oriented x 3. Hospital delirium vs dementia Pt answering questions, responsive Unable to obtain ABG. F/u VBG Neuro consult: Dr. Hensley GCS [address] Head: generalized atrophy. correlate for mastoiditis MRI: pt has pacemaker Cardio: Shock resolved, probably sepsis but no source found. Likely cardiogenic from renal failure BP: normotensive Improved to 120-130/40s Not on vasopressors HR 90s Maintain MAP >65 Xopenex to prevent rapid atrial rate Carevedilol 3.125 mg po bid Metoprolol 25mg po per cardio recs Continue to monitor BP Echo showed LVEF 50%. RVEF severely impaired. Pulm: Hypercapnic respiratory failure 7.20/78/32.9/30.5 Lactate: 2.0 Currently on 2L NC Pt maintaining her own airway Repeat VBG. If CO2 improved, pt can be transferred out of ICU Chest xray (12/08/17): "RLL infiltrate inseparable from R pleural effusion" Continue Aztreonam Completed Vancomycin/Gentamicin x 1 dose ID Consult: Dr. Gonzales (Known to pt) Duoneb treatments q2H prn Acetylcysteine Duoneb q2hprn Aformoterol Budesonide Solu-medrol 40mg IVP Singulair Maintain 02 sat >90% HOB 30 degrees GI: Distended Continue with protonix Abd Xray 12/09/17: Moderate small bowel distention at the central abdomen is identified with moderate amount of large bowel gas. Developing ileus not completely excluded nor would early small-bowel obstruction be excluded at this time. Further clinical correlation advised. Follow-up radiography recommended /Renal: Pt to undergo 2L HD today. UF completed yesterday ESRD on HD MWF BUN/Cr below baseline Nephrology following Replace electrolytes Maintain euvolemia Continue to monitor Per Nephro, pt can be transferred to floors Endocrine: Hx of DM Maintain euglycemia Fingersticks q6h ISS-High Heme: Macrocytic anemia at baseline platelets stable continue to monitor ID Continue aztreonam F/u panculture Will consider cefepime despite penicillin if condition worsens Stage 2 sacral ulcer: followed by wound care DVT/GI PPx: Hep/Protonix Dispo: If hemodynamically stable and VBG improved, pt will be ok to transfer out of ICU. PT/OT eval Case seen, examined and discussed with attending physician, Dr. Rosario <Viviana Rosario - Last Filed: 12/12/17 15:59> CCU Objective - Medications Active Medications: Active Medications Generic Name Dose Route Start Last Admin Trade Name Freq PRN Reason Stop Dose Admin Acetylcysteine 4 ml 12/12/17 22:00 Acetylcysteine 20% IH Q12 AUGUSTIN Albuterol/Ipratropium 3 ml 12/08/17 14:37 12/10/17 20:27 Duoneb 3 Mg/0.5 Mg (3 Ml) Ud IH 3 ml Q2H PRN Administration Shortness of Breath Arformoterol Tartrate 15 mcg 12/12/17 08:00 12/12/17 07:34 Brovana IH 15 mcg [id number] AUGUSTIN Administration Bisacodyl 10 mg 12/10/17 10:00 12/12/17 14:16 Dulcolax RC Not Given DAILY AUGUSTIN Budesonide 0.5 mg 12/12/17 08:00 12/12/17 07:34 Pulmicort Respules IH 0.5 mg [id number] AUGUSTIN Administration Carvedilol 3.125 mg 12/12/17 10:00 12/12/17 09:46 Coreg PO Not Given BID AUGUSTIN Diphenhydramine HCl 25 mg 12/11/17 15:33 Benadryl PO Q8 PRN Itching / Pruritus Heparin Sodium (Porcine) 5,000 units 12/08/17 22:00 12/12/17 09:44 Heparin SC 5,000 units Q12 AUGUSTIN Administration Protocol NOREPINEPHRINE BIT/0.9 % NACL 4 mg in 250 mls @ 15 mls/hr 12/09/17 12:48 12/09/17 15:50 Levophed 4 Mg/ 250 Ml Ns Premixed IV 0 mcg/min .[id number] PRN 0 mls/hr TITRATE PER MD ORDER Titration Protocol 4 MCG/MIN Aztreonam 100 mls @ 100 mls/hr 12/12/17 14:00 12/12/17 13:28 Azactam 1 Gm IVPB 12/12/17 22:59 100 mls/hr Q8 AUGUSTIN Administration Protocol Insulin Human Regular 0 units 12/12/17 11:30 12/12/17 11:30 Humulin R High SC Not Given ACHS AUGUSTIN Protocol Loratadine 10 mg 12/13/17 10:00 Claritin PO DAILY AUGUSTIN Methylprednisolone 40 mg 12/08/17 22:00 12/12/17 09:44 Solu-Medrol IVP 40 mg Q12 AUGUSTIN Administration Metoprolol Tartrate 25 mg 12/08/17 18:00 12/12/17 09:45 Lopressor PO Not Given BID AUGUSTIN Montelukast Sodium 10 mg 12/12/17 22:00 Singulair PO HS AUGUSTIN Pantoprazole Sodium 40 mg 12/12/17 07:30 12/12/17 08:32 Protonix Ec Tab PO 40 mg ACB AUGUSTIN Administration Sevelamer HCl 1,600 mg 12/09/17 14:00 12/12/17 13:28 Renagel PO 1,600 mg TID AUGUSTIN Administration - Patient Studies Lab Studies: Microbiology Studies 12/08/17 10:50 Blood Culture - Preliminary Blood-Venous NO GROWTH AFTER 4 DAYS 12/08/17 13:30 Blood Culture - Preliminary Blood-Venous NO GROWTH AFTER 3 DAYS Lab Studies 12/12/17 12/12/17 12/12/17 Range/Units 15:10 06:50 06:50 WBC 8.8 D (4.5-11.0) 10^3/uL RBC 3.42 L (3.5-6.1) 10^6/uL Hgb 12.3 (12.0-16.0) g/dL Hct 41.3 (36.0-48.0) % MCV 120.8 H (80.0-105.0) fl MCH 36.0 H (25.0-35.0) pg MCHC 29.8 L (31.0-37.0) g/dl RDW 16.9 H (11.5-14.5) % Plt Count 129 (120.0-450.0) 10^3/uL MPV 10.5 (7.0-11.0) fl Gran % 82.0 H (50.0-68.0) % Lymph % (Auto) 11.6 L (22.0-35.0) % [place] % (Auto) 6.3 H (1.0-6.0) % Eos % (Auto) 0.0 L (1.5-5.0) % Baso % (Auto) 0.1 (0.0-3.0) % Gran # 7.18 H (1.4-6.5) Lymph # (Auto) 1.0 L (1.2-3.4) [place] # (Auto) 0.6 (0.1-0.6) Eos # (Auto) 0.0 (0.0-0.7) Baso # (Auto) 0.01 (0.0-2.0) K/mm3 pO2 208 H (30-55) mm/Hg VBG pH 7.26 L (7.32-7.43) VBG pCO2 61.0 H (40-60) VBG HCO3 27.4 (21-28) mmol/l VBG Total CO2 29.3 H (22-28) mmol.L VBG O2 Sat (Calc) 99.8 H (40-65) % VBG Base Excess -1.0 L (0.0-2.0) mmol/L VBG Potassium 3.7 (3.6-5.2) mmol/L Glucose 274 H (65-105) mg/dl Lactate 1.9 (0.7-2.1) mmol/L FiO2 21.0 % Sodium 135.0 136 (132-148) mmol/L Potassium 4.0 (3.6-5.0) mmol/L Chloride 98.0 98 (98-107) mmol/L Carbon Dioxide 26 (21-33) mmol/L Anion Gap 16 (10-20) BUN 38 H (7-21) mg/dL Creatinine 3.2 H (0.7-1.2) mg/dl Est GFR ( Amer) 17 Est GFR (Non-Af Amer) 14 POC Glucose (mg/dL) (65-110) mg/dL Random Glucose 255 H (70-110) mg/dL Calcium 8.9 (8.4-10.5) mg/dL Phosphorus 4.4 (2.5-4.5) mg/dL Magnesium 2.1 (1.7-2.2) mg/dL Total Bilirubin 0.7 (0.2-1.3) mg/dL AST 22 (14-36) U/L ALT 23 (7-56) U/L Alkaline Phosphatase 186 H (38-126) U/L Total Protein 7.5 (5.8-8.3) g/dL Albumin 3.4 (3.0-4.8) g/dL Globulin 4.2 gm/dL Albumin/Globulin Ratio 0.8 L (1.1-1.8) Venous Blood Potassium 3.7 (3.6-5.2) mmol/L Hep Bs Antigen (NEGATIVE) Hep Bs Antibody (NEGATIVE) Hep B Core IgM Ab (NEGATIVE) 12/11/17 12/11/17 12/11/17 Range/Units 21:49 16:13 16:12 WBC (4.5-11.0) 10^3/uL RBC (3.5-6.1) 10^6/uL Hgb (12.0-16.0) g/dL Hct (36.0-48.0) % MCV (80.0-105.0) fl MCH (25.0-35.0) pg MCHC (31.0-37.0) g/dl RDW (11.5-14.5) % Plt Count (120.0-450.0) 10^3/uL MPV (7.0-11.0) fl Gran % (50.0-68.0) % Lymph % (Auto) (22.0-35.0) % [place] % (Auto) (1.0-6.0) % Eos % (Auto) (1.5-5.0) % Baso % (Auto) (0.0-3.0) % Gran # (1.4-6.5) Lymph # (Auto) (1.2-3.4) [place] # (Auto) (0.1-0.6) Eos # (Auto) (0.0-0.7) Baso # (Auto) (0.0-2.0) K/mm3 pO2 (30-55) mm/Hg VBG pH (7.32-7.43) VBG pCO2 (40-60) VBG HCO3 (21-28) mmol/l VBG Total CO2 (22-28) mmol.L VBG O2 Sat (Calc) (40-65) % VBG Base Excess (0.0-2.0) mmol/L VBG Potassium (3.6-5.2) mmol/L Glucose (65-105) mg/dl Lactate (0.7-2.1) mmol/L FiO2 % Sodium (132-148) mmol/L Potassium (3.6-5.0) mmol/L Chloride (98-107) mmol/L Carbon Dioxide (21-33) mmol/L Anion Gap (10-20) BUN (7-21) mg/dL Creatinine (0.7-1.2) mg/dl Est GFR ( Amer) Est GFR (Non-Af Amer) POC Glucose (mg/dL) 236 H 344 H 460 H* (65-110) mg/dL Random Glucose (70-110) mg/dL Calcium (8.4-10.5) mg/dL Phosphorus (2.5-4.5) mg/dL Magnesium (1.7-2.2) mg/dL Total Bilirubin (0.2-1.3) mg/dL AST (14-36) U/L ALT (7-56) U/L Alkaline Phosphatase (38-126) U/L Total Protein (5.8-8.3) g/dL Albumin (3.0-4.8) g/dL Globulin gm/dL Albumin/Globulin Ratio (1.1-1.8) Venous Blood Potassium (3.6-5.2) mmol/L Hep Bs Antigen (NEGATIVE) Hep Bs Antibody (NEGATIVE) Hep B Core IgM Ab (NEGATIVE) 12/11/17 12/11/17 Range/Units 13:30 13:30 WBC (4.5-11.0) 10^3/uL RBC (3.5-6.1) 10^6/uL Hgb (12.0-16.0) g/dL Hct (36.0-48.0) % MCV (80.0-105.0) fl MCH (25.0-35.0) pg MCHC (31.0-37.0) g/dl RDW (11.5-14.5) % Plt Count (120.0-450.0) 10^3/uL MPV (7.0-11.0) fl Gran % (50.0-68.0) % Lymph % (Auto) (22.0-35.0) % [place] % (Auto) (1.0-6.0) % Eos % (Auto) (1.5-5.0) % Baso % (Auto) (0.0-3.0) % Gran # (1.4-6.5) Lymph # (Auto) (1.2-3.4) [place] # (Auto) (0.1-0.6) Eos # (Auto) (0.0-0.7) Baso # (Auto) (0.0-2.0) K/mm3 pO2 (30-55) mm/Hg VBG pH (7.32-7.43) VBG pCO2 (40-60) VBG HCO3 (21-28) mmol/l VBG Total CO2 (22-28) mmol.L VBG O2 Sat (Calc) (40-65) % VBG Base Excess (0.0-2.0) mmol/L VBG Potassium (3.6-5.2) mmol/L Glucose (65-105) mg/dl Lactate (0.7-2.1) mmol/L FiO2 % Sodium (132-148) mmol/L Potassium (3.6-5.0) mmol/L Chloride (98-107) mmol/L Carbon Dioxide (21-33) mmol/L Anion Gap (10-20) BUN (7-21) mg/dL Creatinine (0.7-1.2) mg/dl Est GFR ( Amer) Est GFR (Non-Af Amer) POC Glucose (mg/dL) (65-110) mg/dL Random Glucose (70-110) mg/dL Calcium (8.4-10.5) mg/dL Phosphorus (2.5-4.5) mg/dL Magnesium (1.7-2.2) mg/dL Total Bilirubin (0.2-1.3) mg/dL AST (14-36) U/L ALT (7-56) U/L Alkaline Phosphatase (38-126) U/L Total Protein (5.8-8.3) g/dL Albumin (3.0-4.8) g/dL Globulin gm/dL Albumin/Globulin Ratio (1.1-1.8) Venous Blood Potassium (3.6-5.2) mmol/L Hep Bs Antigen Negative (NEGATIVE) Hep Bs Antibody Negative (NEGATIVE) Hep B Core IgM Ab Negative (NEGATIVE) Laboratory Results - last 24 hr 12/11/17 12/11/17 12/11/17 13:30 13:30 16:12 WBC RBC Hgb Hct MCV MCH MCHC RDW Plt Count MPV Gran % Lymph % (Auto) [place] % (Auto) Eos % (Auto) Baso % (Auto) Gran # Lymph # (Auto) [place] # (Auto) Eos # (Auto) Baso # (Auto) pO2 VBG pH VBG pCO2 VBG HCO3 VBG Total CO2 VBG O2 Sat (Calc) VBG Base Excess VBG Potassium Glucose Lactate FiO2 Sodium Potassium Chloride Carbon Dioxide Anion Gap BUN Creatinine Est GFR ( Amer) Est GFR (Non-Af Amer) POC Glucose (mg/dL) 460 H* Random Glucose Calcium Phosphorus Magnesium Total Bilirubin AST ALT Alkaline Phosphatase Total Protein Albumin Globulin Albumin/Globulin Ratio Venous Blood Potassium Hep Bs Antigen Negative Hep Bs Antibody Negative Hep B Core IgM Ab Negative 12/11/17 12/11/17 12/12/17 16:13 21:49 06:50 WBC 8.8 D RBC 3.42 L Hgb 12.3 Hct 41.3 MCV 120.8 H MCH 36.0 H MCHC 29.8 L RDW 16.9 H Plt Count 129 MPV 10.5 Gran % 82.0 H Lymph % (Auto) 11.6 L [place] % (Auto) 6.3 H Eos % (Auto) 0.0 L Baso % (Auto) 0.1 Gran # 7.18 H Lymph # (Auto) 1.0 L [place] # (Auto) 0.6 Eos # (Auto) 0.0 Baso # (Auto) 0.01 pO2 VBG pH VBG pCO2 VBG HCO3 VBG Total CO2 VBG O2 Sat (Calc) VBG Base Excess VBG Potassium Glucose Lactate FiO2 Sodium Potassium Chloride Carbon Dioxide Anion Gap BUN Creatinine Est GFR ( Amer) Est GFR (Non-Af Amer) POC Glucose (mg/dL) 344 H 236 H Random Glucose Calcium Phosphorus Magnesium Total Bilirubin AST ALT Alkaline Phosphatase Total Protein Albumin Globulin Albumin/Globulin Ratio Venous Blood Potassium Hep Bs Antigen Hep Bs Antibody Hep B Core IgM Ab 12/12/17 12/12/17 06:50 15:10 WBC RBC Hgb Hct MCV MCH MCHC RDW Plt Count MPV Gran % Lymph % (Auto) [place] % (Auto) Eos % (Auto) Baso % (Auto) Gran # Lymph # (Auto) [place] # (Auto) Eos # (Auto) Baso # (Auto) pO2 208 H VBG pH 7.26 L VBG pCO2 61.0 H VBG HCO3 27.4 VBG Total CO2 29.3 H VBG O2 Sat (Calc) 99.8 H VBG Base Excess -1.0 L VBG Potassium 3.7 Glucose 274 H Lactate 1.9 FiO2 21.0 Sodium 136 135.0 Potassium 4.0 Chloride 98 98.0 Carbon Dioxide 26 Anion Gap 16 BUN 38 H Creatinine 3.2 H Est GFR ( Amer) 17 Est GFR (Non-Af Amer) 14 POC Glucose (mg/dL) Random Glucose 255 H Calcium 8.9 Phosphorus 4.4 Magnesium 2.1 Total Bilirubin 0.7 AST 22 ALT 23 Alkaline Phosphatase 186 H Total Protein 7.5 Albumin 3.4 Globulin 4.2 Albumin/Globulin Ratio 0.8 L Venous Blood Potassium 3.7 Hep Bs Antigen Hep Bs Antibody Hep B Core IgM Ab Critical Care Progress Note - Nutrition Nutrition: Nutrition Category Date Time Status Renal Diet [DIET] Diets 12/09/17 Lunch Ordered Addendum Addendum: 12/12/17 15:58 ICU Attending Addendum Patient seen and examined. Case reviewed on round with housestaff. Agree with resident note above with the following additions/exceptions: 72F with ESRD on HD, MWF, COPD, dementia, presents from home s/p fall. Shock resolved. Possibly sepsis but no source identified. Likely cardiogenic from renal failure. HCRF, appears to be maintaining her own airway. she has remained awake and alert however confused at times will check blood gas off bipap today if pH improved, will have her on Bipap QHS with increasing her delta to 16/5 Broad spectrum abx, as per ID HD as per Renal rest of care above Viviana Rosario MD Patient Financial Services Coordinator
[2017-12-12] MEDS ORDERED: Aztreonam 1 Gm in NS 100mL 100 ML IVPB SCH (14:00)
--- NOTE | 2017-12-12 14:01 | PN ---
DATE: 12/12/2017 The patient is a female. The patient is 72. REASON FOR CONSULTATION AND FOLLOWUP: Cardiac evaluation on LifeVest, chronic kidney disease, on dialysis, history of PTCA. SUBJECTIVE: The patient denies any chest pain, shortness of breath, or any palpitation. OBJECTIVE: GENERAL: Not in apparent distress, lying flat in the bed. VITAL SIGNS: Height is 4 feet, weight 175 pound, body mass index 35 kg per meter square. Temperature afebrile, heart rate 79, blood pressure 134/80. HEENT: PERRLA. Extraocular muscles intact. NECK: Supple. No carotid bruit. No thyromegaly. CHEST: Clear to auscultation. HEART: S1 and S2 regular. ABDOMEN: Soft. EXTREMITIES: Clubbing and cyanosis negative. The patient had repeat echo done yesterday that revealed normal LV function, ejection fraction 50 to 55%, severely dilated systolic function, RV systolic reduced, mild aortic sclerosis versus aortic stenosis, mitral regurgitation, [id number] tricuspid regurgitation, calculate RV systolic pressure 34, which is being underestimated because of configuration of the TR jet. IMPRESSION: A 72-year-old female with a past medical history significant for coronary artery disease status post stent five years ago, being followed by Dr. Sussy De La O and [facility]. Operations And Maintenance Technician put in LifeVest, though preserved left ventricular function, repeat echocardiogram here done with preserved left ventricular function and since the battery of the LifeVest ran out, so they have discontinued. Currently, the patient has pneumonia as well and end-stage renal disease, on dialysis, obesity, pulmonary hypertension. Primcor wasstarted in ICU, but the patient dropped the blood pressure, so it was discontinued. The patient came with hypotension requiring Levophed, which is off now. RECOMMENDATION: Continue dialysis. Continue broad spectrum antibiotic. Continue DVT prophylaxis. We will put low dose of beta-rossana as the heart rate and blood pressure is tolerated. Upon discharge, the patient be followed with Dr. Tuttle at [place] for evaluation for defibrillator as it was planned, the defibrillator was discontinued because of pulmonary edema as per daughter. I spoke to the daughter, Rivka Dickerson. Joss Bah MD MTDDamien
--- NOTE | 2017-12-12 14:15 | PN ---
DATE: 12/12/2017 PULMONARY PROGRESS NOTE REFERRING PHYSICIAN: Taylor House MD. SUBJECTIVE: She is lying in the bed, head at 45 degrees. Family and nursing staff are at bedside. Overnight events noted. Tolerated BiPAP well. More awake and alert. Still has a cough. Unable to clear pulmonary secretion. No hemoptysis, no hematemesis, no hematuria, no diarrhea. Does have upper extremity and lower extremity swelling. OBJECTIVE: GENERAL: In no acute distress. VITAL SIGNS: Temperature is 98, heart rate is 82, respiratory rate is 16, blood pressure 90/50, pulse ox is 97% on 5 L nasal cannula. HEENT: Moist mucous membrane. Crowded airway. Mallampati score is 4. Short thick neck. LUNGS: Have a prolonged expiratory phase with wheezing. HEART: S1 and S2. ABDOMEN: Soft, nontender, nondistended. EXTREMITIES: Have edema of the lower extremities with also upper extremity edema. NEUROLOGICAL: Awake and alert. Follows simple command, but confused. MEDICATIONS: She is on Azactam 1 g IV every 8 hours, Benadryl 25 mg every 8 hours, Brovana inhaled twice a day, Coreg 3.125 mg twice a day, Dulcolax 10 mg rectally daily, DuoNeb every 2 hours p.r.n., heparin 5000 units subcu every 12 hours, metoprolol tartrate 25 mg twice day, Protonix 40 mg daily, Pulmicort inhaled twice a day, Renagel three times a day, Solu-Medrol 40 mg every 12 hours. LABORATORY DATA: Shows hemoglobin 12.3, hematocrit 41.3, WBC 8.8, platelet is 129. Sodium 136, potassium 4, chloride 98, bicarbonate 26, BUN 38, creatinine 3.2, glucose is 255, calcium is 8.9, phosphorus 4.4, magnesium 2.1, AST 22, ALT 23, alk phos is 186, albumin is 3.4. Microbiology: Blood culture, nares culture are unremarkable. IMPRESSION AND PLAN: Status post respiratory failure with CO2 retention and hypoxemia; has a pulmonary infiltrate; pulmonary hypertension; renal failure, dialysis dependent; cardiomyopathy; coronary artery disease; morbid obesity. Case discussed with family at bedside. All their questions answered. Spoke to nursing staff. Titrate FiO2 poorly to pulse ox about 88-90%. Continue antibiotics, inhaled steroids. We will add Mucomyst and inhaled steroids. Also add Singulair 10 mg at bedtime, Zyrtec 10 mg at bedtime. Out of bed to chair if possible. Follow up labs the morning. Critical care time more than 35 minutes. Thank you and we will follow with you. Joss Arias MD
[2017-12-12 15:21] LABS: VENOUS BLOOD GAS PO2 208 mm/Hg (30-55); VENOUS BLOOD PH 7.26 (7.32-7.43)
--- NOTE | 2017-12-12 15:37 | CP.PCM.PN ---
Subjective - Date & Time of Evaluation Date of Evaluation: 12/12/17 Time of Evaluation: 14:30 - Subjective Subjective: Infectious Disease Follow Up: December 12, 2017 72 yo Kenyan speaking female presenting to [facility] with back pain on sitting down. Patient was found to be hypotensive in ER. The patient has an extensive medical history that includes ESRD on HD, CAD, CHF with EF of 35%, occluded heart vessels, DM, HTN, and ischemic cardiomyopathy. The patient is unable to provide any additional information at this time. Blood pressure improved after 1L fluid bolus on admission. The patient is awake, alert, and orientated times 3 now. Received HD. She is able to answer questions appropriately. Found to still have some respiratory acidosis and maintained on BiPAP today. Objective - Vital Signs/Intake and Output Vital Signs (last 24 hours): Temp Pulse Resp BP Pulse Ox 97.5 F L 88 16 90/50 L 89 L 12/12/17 08:00 12/12/17 10:35 12/12/17 10:35 12/12/17 10:33 12/12/17 02:40 - Medications Medications: Current Medications Acetylcysteine (Acetylcysteine 20%) 4 ml IH Q12 [facility] Albuterol/Ipratropium (Duoneb 3 Mg/0.5 Mg (3 Ml) Ud) 3 ml IH Q2H PRN PRN Reason: Shortness of Breath Last Admin: 12/10/17 20:27 Dose: 3 ml Arformoterol Tartrate (Brovana) 15 mcg IH [id number] [facility] Last Admin: 12/12/17 07:34 Dose: 15 mcg Bisacodyl (Dulcolax) 10 mg RC DAILY [facility] Last Admin: 12/12/17 14:16 Dose: Not Given Budesonide (Pulmicort Respules) 0.5 mg IH [id number] [facility] Last Admin: 12/12/17 07:34 Dose: 0.5 mg Carvedilol (Coreg) 3.125 mg PO BID [facility] Last Admin: 12/12/17 09:46 Dose: Not Given Diphenhydramine HCl (Benadryl) 25 mg PO Q8 PRN PRN Reason: Itching / Pruritus Heparin Sodium (Porcine) (Heparin) 5,000 units SC Q12 [facility]; Protocol Last Admin: 12/12/17 09:44 Dose: 5,000 units NOREPINEPHRINE BIT/0.9 % NACL (Levophed 4 Mg/ 250 Ml Ns Premixed) 4 mg in 250 mls @ 15 mls/hr IV .[id number] PRN; Protocol PRN Reason: TITRATE PER MD ORDER Last Titration: 12/09/17 15:50 Dose: 0 mcg/min, 0 mls/hr Aztreonam (Azactam 1 Gm) 100 mls @ 100 mls/hr IVPB Q8 [facility]; Protocol Stop: 12/12/17 22:59 Last Admin: 12/12/17 13:28 Dose: 100 mls/hr Insulin Human Regular (Humulin R High) 0 units SC ACHS [facility]; Protocol Last Admin: 12/12/17 11:30 Dose: Not Given Loratadine (Claritin) 10 mg PO DAILY [facility] Methylprednisolone (Solu-Medrol) 40 mg IVP Q12 [facility] Last Admin: 12/12/17 09:44 Dose: 40 mg Metoprolol Tartrate (Lopressor) 25 mg PO BID [facility] Last Admin: 12/12/17 09:45 Dose: Not Given Montelukast Sodium (Singulair) 10 mg PO HS [facility] Pantoprazole Sodium (Protonix Ec Tab) 40 mg PO ACB [facility] Last Admin: 12/12/17 08:32 Dose: 40 mg Sevelamer HCl (Renagel) 1,600 mg PO TID [facility] Last Admin: 12/12/17 13:28 Dose: 1,600 mg - Labs Labs: 12/12/17 06:50 12/12/17 06:50 - Constitutional Appears: Non-toxic, No Acute Distress, Chronically Ill - Head Exam Head Exam: ATRAUMATIC, NORMOCEPHALIC - Eye Exam Eye Exam: EOMI, PERRL Pupil Exam: NORMAL ACCOMODATION, PERRL - ENT Exam ENT Exam: Mucous Membranes Moist, Normal External Ear Exam, TM's Normal Bilaterally - Neck Exam Neck Exam: Full ROM, Normal Inspection - Respiratory Exam Respiratory Exam: Decreased Breath Sounds, NORMAL BREATHING PATTERN. absent: Rales, Rhonchi, Wheezes - Cardiovascular Exam Cardiovascular Exam: REGULAR RHYTHM, RRR, +S1, +S2 - GI/Abdominal Exam GI & Abdominal Exam: Distended, Soft. absent: Tenderness - Extremities Exam Extremities Exam: Normal Inspection. absent: Joint Swelling, Pedal Edema - Neurological Exam Neurological Exam: Alert, Awake, CN II-XII Intact, Oriented x3 - Psychiatric Exam Psychiatric exam: Normal Affect, Normal Mood - Skin Skin Exam: Dry, Intact, Normal Color Assessment and Plan - Assessment and Plan (Free Text) Assessment: 72 yo female known to me from previous hospitalizations to [facility]. The patient with initial complaint of back pain on sitting down . Found to be hypotensiive at this time. Antibiotics and fluids started. The patient is more awake and alert compared to admission. Blood pressure has improved with 1L of fluids. Started on Aztreonam for antibiotic coverage with single dose of Vancomycin IV and Gentamicin IV. Nam cultures sent. No leukocytosis. Supportive care. Case discussed with Dr. Garrett. If there is continued worsening, will have to consider use of Cefepime despite PCN allergy. Awaiting culture results. The patient is awake and alert now but confused. The patient can follow commands. Not hypotensive at this time. Cultures with no growth at this time after 3 days. Maintain Broad antibiotic coverage at this time. No specific source of sepsis seen. Septic versus Cardiogenic shock on initial presentation. No specific infectious etiology found at this time. On Aztreonam at this time. Consider 7 to 10 days of antibiotics in total. More likely Cardiogenic in origin. Supportive care. Thank you for allowing me to participate in the care of this patient, we will follow with you.
[2017-12-12] MEDS: Acetylcysteine 20% Inhal Soln (4ml) IH SCH (20:07)
[2017-12-12] MEDS: Aztreonam 1 Gm in NS 100mL 100 ML IVPB SCH (21:19)
--- NOTE | 2017-12-13 01:53 | PN ---
DATE: 12/12/2017 SUBJECTIVE: The patient is a 72-year-old female. The patient was seen and examined on the bedside on 12/12/2017. Looking comfortable. More awake and alert. Son was on the bedside. Overnight events noted. Tolerated BiPAP very well. Got dialysis. No fever, no chills, nausea, vomiting, or diarrhea. No hematuria or hematochezia. No headache or dizziness. No chest pain. No palpitation. PHYSICAL EXAMINATION VITAL SIGNS: Temperature 98, heart rate 82, respiratory rate 16, blood pressure 90/50, pulse oximetry 95% on nasal cannula. HEENT: Head normocephalic, atraumatic. Eyes; PERRLA. Extraocular muscles intact. Conjunctivae clear. Nose patent. Mucous membrane moist. NECK: Supple. No carotid bruit. No JVD or thyromegaly. CHEST: Bilaterally symmetrical. HEART: S1 and S2 positive. LUNGS: Clear to auscultation. ABDOMEN: Soft. Nontender. No organomegaly. EXTREMITIES: Have edema of lower extremities with also upper extremity edema. NEUROLOGICAL: The patient is awake and alert. Follow simple commands. MEDICATIONS: Azactam, Benadryl, Brovana, Coreg, Dulcolax, DuoNeb, heparin, metoprolol, Protonix, Pulmicort, Renagel, Solu-Medrol. LABORATORY DATA: Hemoglobin 12.3, hematocrit 41.3, white blood cells 8.8, platelets 129. Sodium 136, potassium 4, BUN 38, creatinine 3.2, AST 23, ALT 23. ASSESSMENT AND PLAN: Ms. Debby Olguin is a 72-year-old female status post respiratory failure with carbon dioxide retention and hypoxemia; has a pulmonary infiltrate; pulmonary hypertension; renal failure, dialysis dependent; cardiomyopathy; coronary artery disease. Discussion done with the patient and patient's family. All questions answered. Discussion done with nursing staff. Continue antibiotics, inhaled bronchodilators. Dr. Arias added Mucomyst and inhaled steroids. Add Singulair and Zyrtec. Also gastrointestinal and deep venous thrombosis prophylaxes. Repeat labs. We will follow up. Taylor House MD [facility] # [phone]
[2017-12-13] MEDS: Albuterol-Ipratrop 3 mg / 0.5 (3 ml) UD IH PRN (04:44)
[2017-12-13] MEDS: Aztreonam 1 Gm in NS 100mL 100 ML IVPB SCH ×3 (05:21→22:13)
[2017-12-13 07:01] LABS: GRAN # 5.99 (1.4-6.5); HEMOGLOBIN 12.3 g/dL (12.0-16.0); LYMPH # 0.7 (1.2-3.4); LYMPH % 9.6 % (22.0-35.0); MEAN CELL VOLUME 119.6 fl (80.0-105.0); MEAN CORPUSCULAR HEMOGLOBIN 36.5 pg (25.0-35.0); MEAN CORPUSCULAR HGB CONC 30.5 g/dl (31.0-37.0); MEAN PLATELET VOLUME 10.4 fl (7.0-11.0); MONO # 0.4 (0.1-0.6); MONO % 5.4 % (1.0-6.0); RBC 3.37 10^6/uL (3.5-6.1); RED CELL DISTRIBUTION WIDTH 16.5 % (11.5-14.5); WHITE BLOOD COUNT 7.1 10^3/uL (4.5-11.0)
[2017-12-13] MEDS: Budesonide 0.5 mg/2 ml Inhal Susp UD IH SCH ×2 (07:18→20:21)
[2017-12-13] MEDS: Acetylcysteine 20% Inhal Soln (4ml) IH SCH ×2 (07:19→22:18)
[2017-12-13] MEDS: Arformoterol 15 mcg/2 ml Inh Sol IH SCH ×2 (07:19→20:21)
[2017-12-13 07:36] LABS: ALB/GLOB RATIO 0.8 (1.1-1.8); ALBUMIN 3.1 g/dL (3.0-4.8); CALCIUM 8.1 mg/dL (8.4-10.5)
[2017-12-13] MEDS: Insulin Reg-HIGH-Coverage SC SCH ×4 (08:20→22:17)
[2017-12-13] MEDS: Pantoprazole 40 mg EC Tab PO SCH (08:26)
--- NOTE | 2017-12-13 09:45 | PN ---
DATE: 12/13/2017 SUBJECTIVE: The patient is currently seen receiving dialysis in CCU bed 6. Hemodynamics appeared to be stable. She is not receiving pressor therapy at this point in time. She appears to be more alert, oriented. She recognizes me. She is less short of breath. MEDICATIONS: Medication list reviewed. The patient is currently on acetylcysteine inhalation therapy, Azactam, Benadryl, Brovana, Claritin, Coreg, Dulcolax, DuoNeb, subcu heparin, insulin, Lopressor, Protonix, Pulmicort Respules, Renagel, Singulair and IV Solu-Medrol. OBJECTIVE: INTAKE/OUTPUT: Intake is 880, output is 2301. VITAL SIGNS: Blood pressure presently 115/59, temperature 97.4, respiratory rate 18 with a pulse of 87. HEENT: Exam shows her to be normocephalic, atraumatic. Conjunctivae remain pink. Sclerae are nonicteric. NECK: Supple. No neck vein distention. CHEST: No rales or wheezing today. Slight decreased breath sounds at the bases. CARDIOVASCULAR: Shows an S1, S2, which are regular. Positive MR/TR. No S3, no S4, no rub. ABDOMEN: Moderately obese. Mild distention. Soft, nontender. Bowel sounds are normal. No rebound, guarding or masses noted. EXTREMITIES: Show no lower extremity edema. Trace edema of her right upper extremity. She has a right chest wall PermCath, which is currently being used for dialysis. NEURO: Shows her to be alert, oriented and much less confused than she was previously. LABORATORY DATA AND IMAGING: CBC, white blood cell count 7.1, hemoglobin 12.3 with a platelet count of 113,000. Chemistries today show potassium of 3.5, BUN of 36 with a creatinine of 2.8. Glucose is 299. Calcium 8.1, phosphorus 3.6 with a magnesium level of 2. Liver enzymes are normal with an alkaline phosphatase slightly elevated at 164. Microbiology, all cultures are negative. Admitting chest x-ray showed a possible right lower lobe infiltrate. ASSESSMENT: 1. Dyspnea, significantly improved. Congestive heart failure being treated. Possible right lower extremity pneumonia being treated. Her asthma appears to be stable. She remains on inhalation therapy along with steroids. 2. Hypotension. The patient's blood pressure appears to be stable. Hopefully, she will be able to get to today's dialysis without pressor support. If that is the case, perhaps possible discharge from the CCU post dialysis. 3. History of asthma with chronic obstructive pulmonary disease. The patient will continue inhalation therapy and steroids. 4. History of end-stage renal disease. The patient is presently receiving dialysis on a Friday, , Friday schedule. Next week, she can return to a Friday, Friday, Friday schedule as that had been her outpatient schedule. 5. History of atherosclerotic heart disease, status post percutaneous transluminal coronary angioplasty and stents; history of cardiomyopathy with mitral regurgitation/tricuspid regurgitation. The patient per records appears to have had a significant reduction in her ejection fraction down to 30%. There was talk about placing an automatic implantable cardioverter-defibrillator. This was not done. The patient uses a LifeVest. She had been followed by Cardiology. 6. History of anemia. Hemoglobin is excellent at 12.3. The patient does not require Aranesp. 7. History of secondary hyperparathyroidism. Calcium, phosphorus levels are excellent. The patient continues on binder therapy. PLAN: 1. Today's dialysis with planned ultrafiltration of 2 L. The patient appears to be clinically euvolemic with the exception of some mild edema of her right hand, perhaps a local factor from IV placement. If the patient gets to today's dialysis without pressor support, perhaps transfer out of the CCU to telemetry. 2. Continue antibiotic therapy for possible pneumonia. 3. P.r.n. ProAmatine for any lower blood pressure, which might avoid the need to use Levophed. 4. Her next dialysis as discussed with the dialysis staff can be on 12/15/2017 and she could return back to the Friday, Friday, Friday schedule. 5. Case discussed with arranging funeral director, CCU nurse and dialysis nurse. 6. Greater than 35 minutes spent in the care of this patient. Nishant Mack MD
[2017-12-13] MEDS: MethylPREDNISolone 40 mg Vial IVP SCH ×2 (10:37→22:12)
--- NOTE | 2017-12-13 10:50 | PN ---
DATE: 12/13/2017 CHIEF JAILER NOTE LOCATION: At [facility]. SUBJECTIVE: The patient is resting in bed with O2 via nasal cannula. No respiratory distress at this time. The patient also is getting dialysis. No complaints of pain. No nausea or vomiting. No diarrhea. PHYSICAL EXAMINATION: VITAL SIGNS: Physical exam note that her temperature is 98.6, pulse is 80, respirations are 22 and BP is 105/41. SKIN: Warm and dry. HEENT: Head: Atraumatic, normocephalic. Eyes: Reactive to light. Ears, nose and throat seemed to be within normal limits. NECK: Her neck is supple. No JVD. No thyroid enlargement. No lymph nodes. HEART: Irregular rate and rhythm. Normal S1, S2. LUNGS: Reveal occasional rhonchi bilaterally. ABDOMEN: Soft. Decreased bowel sounds. GENITALIA AND RECTAL: Deferred. MUSCULOSKELETAL: No joint deformities. EXTREMITIES: Reveal positive lower extremity edema. NEUROLOGICAL: The patient seemed to be grossly intact. LABORATORY DATA: As far as her laboratories, her white count is 7.1, hemoglobin is 12.3, hematocrit 40.3 with platelets of 113,000. Sodium is 136, potassium 3.5, chloride 97, CO2 of 27 with a BUN of 36, creatinine of 2.8 and a glucose of 299. IMPRESSION: As far as my impression, this patient initially presented with altered mental status and respiratory failure and hypotension. At present, she is awake and alert, oriented x3. The patient has stable blood pressure off pressors. She is getting dialysis at this time for end-stage renal disease. There may be a component of pneumonia. She has severe chronic obstructive pulmonary disease with hypercapnia. She has a history of coronary artery disease, diabetes, hypertension and is noted to have possible right lower lobe pneumonia with pleural effusion. PLAN: As far as our plan, we will continue with Mucomyst and aggressive pulmonary toilet. She is on aztreonam, Benadryl, Brovana, Claritin, Coreg as well as DuoNeb. The patient is getting metoprolol and Protonix as well as Pulmicort and Solu-Medrol, Singulair. We will continue to follow closely and treat aggressively along with the other consultants and the primary care doctor. Vadim Ricci MD
--- NOTE | 2017-12-13 17:56 | CP.PCM.PN ---
Subjective - Date & Time of Evaluation Date of Evaluation: 12/13/17 Time of Evaluation: 16:30 - Subjective Subjective: Infectious Disease Follow Up: December 13, 2017 72 yo Lebanese speaking female presenting to [facility] with back pain on sitting down. Patient was found to be hypotensive in ER. The patient has an extensive medical history that includes ESRD on HD, CAD, CHF with EF of 35%, occluded heart vessels, DM, HTN, and ischemic cardiomyopathy. The patient is unable to provide any additional information at this time. Blood pressure improved after 1L fluid bolus on admission. The patient is awake, alert, and orientated times 3 now. Received HD. She is able to answer questions appropriately. Found to still have some respiratory acidosis and maintained on nasal cannula with supplemental O2. Overall improved compared to admission. Objective - Vital Signs/Intake and Output Vital Signs (last 24 hours): Temp Pulse Resp BP Pulse Ox 98 F 91 H 24 140/88 100 12/13/17 16:00 12/13/17 17:12 12/13/17 16:30 12/13/17 17:11 12/13/17 16:30 Intake and Output: 12/13/17 12/13/17 06:59 18:59 Intake Total 200 Balance 200 - Medications Medications: Current Medications Acetylcysteine (Acetylcysteine 20%) 4 ml IH Q12 [facility] Last Admin: 12/13/17 07:19 Dose: 4 ml Albuterol/Ipratropium (Duoneb 3 Mg/0.5 Mg (3 Ml) Ud) 3 ml IH Q2H PRN PRN Reason: Shortness of Breath Last Admin: 12/13/17 04:44 Dose: 3 ml Arformoterol Tartrate (Brovana) 15 mcg IH [id number] [facility] Last Admin: 12/13/17 07:19 Dose: 15 mcg Bisacodyl (Dulcolax) 10 mg RC DAILY [facility] Last Admin: 12/13/17 10:34 Dose: 10 mg Budesonide (Pulmicort Respules) 0.5 mg IH [id number] [facility] Last Admin: 12/13/17 07:18 Dose: 0.5 mg Carvedilol (Coreg) 3.125 mg PO BID [facility] Last Admin: 12/13/17 17:11 Dose: 3.125 mg Diphenhydramine HCl (Benadryl) 25 mg PO Q8 PRN PRN Reason: Itching / Pruritus Last Admin: 12/13/17 15:20 Dose: 25 mg Heparin Sodium (Porcine) (Heparin) 5,000 units SC Q12 [facility]; Protocol Last Admin: 12/13/17 10:32 Dose: 5,000 units NOREPINEPHRINE BIT/0.9 % NACL (Levophed 4 Mg/ 250 Ml Ns Premixed) 4 mg in 250 mls @ 15 mls/hr IV .[id number] PRN; Protocol PRN Reason: TITRATE PER MD ORDER Last Titration: 12/09/17 15:50 Dose: 0 mcg/min, 0 mls/hr Aztreonam (Azactam 1 Gm) 100 mls @ 100 mls/hr IVPB Q8 [facility]; Protocol Last Admin: 12/13/17 14:55 Dose: 100 mls/hr Insulin Human Regular (Humulin R High) 0 units SC ACHS [facility]; Protocol Last Admin: 12/13/17 17:11 Dose: 10 units Loratadine (Claritin) 10 mg PO DAILY [facility] Last Admin: 12/13/17 10:35 Dose: 10 mg Methylprednisolone (Solu-Medrol) 20 mg IVP Q12 [facility] Metoprolol Tartrate (Lopressor) 25 mg PO BID [facility] Last Admin: 12/13/17 17:12 Dose: 25 mg Montelukast Sodium (Singulair) 10 mg PO HS [facility] Last Admin: 12/12/17 21:20 Dose: 10 mg Pantoprazole Sodium (Protonix Ec Tab) 40 mg PO ACB [facility] Last Admin: 12/13/17 08:26 Dose: 40 mg Sevelamer HCl (Renagel) 1,600 mg PO TID [facility] Last Admin: 12/13/17 17:11 Dose: 1,600 mg - Labs Labs: 12/13/17 06:35 12/13/17 06:35 - Constitutional Appears: Non-toxic, No Acute Distress, Chronically Ill - Head Exam Head Exam: ATRAUMATIC, NORMOCEPHALIC - Eye Exam Eye Exam: EOMI, PERRL Pupil Exam: NORMAL ACCOMODATION, PERRL - ENT Exam ENT Exam: Mucous Membranes Moist, Normal External Ear Exam, TM's Normal Bilaterally - Neck Exam Neck Exam: Full ROM, Normal Inspection - Respiratory Exam Respiratory Exam: Decreased Breath Sounds, Clear to Ausculation Bilateral, NORMAL BREATHING PATTERN. absent: Rales, Rhonchi, Wheezes - Cardiovascular Exam Cardiovascular Exam: REGULAR RHYTHM, RRR, +S1, +S2 - GI/Abdominal Exam GI & Abdominal Exam: Distended, Soft, Normal Bowel Sounds. absent: Tenderness - Extremities Exam Extremities Exam: Normal Inspection. absent: Joint Swelling, Pedal Edema - Neurological Exam Neurological Exam: Alert, Awake, CN II-XII Intact, Oriented x3 - Psychiatric Exam Psychiatric exam: Normal Affect, Normal Mood - Skin Skin Exam: Dry, Intact, Normal Color Assessment and Plan - Assessment and Plan (Free Text) Assessment: 72 yo female known to me from previous hospitalizations to [facility]. The patient with initial complaint of back pain on sitting down . Found to be hypotensiive at this time. Antibiotics and fluids started. The patient is more awake and alert compared to admission. Blood pressure has improved with 1L of fluids. Started on Aztreonam for antibiotic coverage with single dose of Vancomycin IV and Gentamicin IV. Nam cultures sent. No leukocytosis. Supportive care. If there is continued worsening, will have to consider use of Cefepime despite PCN allergy. Awaiting culture results. The patient is awake and alert now but confused. The patient can follow comman ds. Not hypotensive at this time. Cultures with no growth at this time after 3 days. Maintain Broad antibiotic coverage at this time. No specific source of sepsis seen. Septic versus Cardiogenic shock on initial presentation. No specific infectious etiology found at this time. On Aztreonam at this time. Consider 7 to 10 days of antibiotics in total. More likely Cardiogenic in origin. Supportive care. Patient improving so far. Thank you for allowing me to participate in the care of this patient, we will follow with you.
[2017-12-13] MEDS: Hydrocortisone 2.5% Rectal Cream(30 gm) PR SCH (18:28)
--- NOTE | 2017-12-13 18:30 | PN ---
DATE: 12/13/2017 PULMONARY PROGRESS NOTE REFERRING PHYSICIAN: Taylor House MD. SUBJECTIVE: The patient is lying in the bed, head at 45 degrees, on supplemental oxygen nasal cannula, much more awake and alert, breathing better, tolerating BiPAP well. Still has some cough and shortness breath. No chest pain. No nausea, no vomiting, no diarrhea. Still has some upper and lower extremity swelling. PHYSICAL EXAMINATION: GENERAL: In no acute distress. VITAL SIGNS: Temperature is 98, heart rate is 91, respiratory rate is 24, blood pressure 140/88, pulse ox 96% on nasal cannula. HEENT: Moist mucous membranes. Small oral cavity. Crowded airway. NECK: Supple. No JVD. LUNGS: Have a prolonged expiratory phase. Few rhonchi. HEART: S1 and S2. ABDOMEN: Soft, nontender. No organomegaly. EXTREMITIES: There is trace upper and lower extremity edema. NEUROLOGIC: Awake, alert, and follows simple command. MEDICATIONS: She is on Mucomyst 20% inhaled twice a day, Azactam 1 g IV every 8 hours, Benadryl 25 mg every 8 hours p.r.n., Brovana inhaled twice a day, Claritin 10 mg daily, Coreg 3.125 mg twice a day, Dulcolax 10 mg rectally daily, albuterol and Atrovent nebulizer every 2 hours p.r.n., heparin 5000 units subcu every 12 hours, insulin coverage. Also on metoprolol tartrate 25 mg twice a day, Protonix 40 mg daily, Pulmicort inhaled twice a day, Renagel 600 mg 3 times a day, Singulair 10 mg daily, and Solu-Medrol 40 mg every 12 hours. LABORATORY DATA: Shows hemoglobin 12.3, hematocrit 40.3, WBC 7.1, platelet count is 113. Sodium 136, potassium 3.5, chloride 97, bicarbonate 27, BUN 36, creatinine 2.8, glucose 299, calcium is 8.1, phosphorus 3.6, magnesium is 2. AST 16, ALT 22, alk phos is 164. Albumin is 3.1. Microbiology: Blood culture, nares culture are unremarkable. IMPRESSION AND PLAN: Status post respiratory failure with CO2 retention and hypoxemia; pulmonary infiltrate; pulmonary hypertension; renal failure, dialysis dependent; cardiomyopathy; coronary artery disease; morbid obesity. Pulmonary point of view, doing much better. Continue BiPAP while sleeping, supplemental oxygen during the daytime. Will benefit from rehab. Will get physical therapy at bedside. Follow up labs in the morning. Thank you and we will follow with you. Joss Arias MD
[2017-12-14] MEDS: Aztreonam 1 Gm in NS 100mL 100 ML IVPB SCH ×3 (05:04→21:37)
--- NOTE | 2017-12-14 06:20 | PN ---
DATE: 12/13/2017 SUBJECTIVE: Patient is a 72-year-old female. Patient was seen and examined on 12/13/2017. Hobbling around. No fever, no chills, more awake and alert. Tolerated BiPAP very well. Still having coughing, shortness of breath. Regularly getting dialysis. No fever, no chills. No nausea, vomiting, diarrhea. No hematuria, hematochezia. No swelling of legs. No chest pain. No palpitation. PHYSICAL EXAMINATION: VITAL SIGNS: Temperature 98, heart rate 91, respiratory rate 24, blood pressure 140/88, pulse oximetry 96% on nasal cannula. HEENT: Head normocephalic, atraumatic. Eyes; PERRLA. Extraocular muscles intact. Conjunctivae clear. Nose patent. Mucous membrane moist. NECK: Supple. No carotid bruit. No JVD or thyromegaly. CHEST: Bilaterally symmetrical. HEART: S1 and S2 positive. LUNGS: Clear to auscultation. ABDOMEN: Soft. Bowel sound present. No organomegaly. EXTREMITIES: No edema. No cyanosis. NEUROLOGICAL: The patient is awake and alert, but confused. Obeys simple orders. MEDICATIONS: Mucomyst, Azactam, Benadryl, Brovana, Claritin, Coreg, Dulcolax, albuterol, heparin,Protonix, Pulmicort, Renagel. LABORATORY DATA: Hemoglobin 12.3, hematocrit 40.3, white blood cells 7.1, platelets 113. Sodium 136, potassium 3.5, BUN 36, creatinine 2.8, glucose 299. AST 16, ALT 22. ASSESSMENT AND PLAN: Ms. Debby Olguin, 72-year-old female with multiple medical problems, came with respiratory failure, carbon dioxide retention, hypoxemia, pulmonary infiltrate; pulmonary hypertension; renal failure, dialysis dependent; cardiomyopathy; coronary artery disease; morbid obesity. Continue BiPAP while sleeping. Gastrointestinal and deep vein thrombosis prophylaxes. Continue dialysis. We will follow up. Taylor House MD
[2017-12-14] MEDS: Budesonide 0.5 mg/2 ml Inhal Susp UD IH SCH ×2 (07:54→20:34)
[2017-12-14] MEDS: Arformoterol 15 mcg/2 ml Inh Sol IH SCH ×2 (07:54→20:34)
[2017-12-14] MEDS: Acetylcysteine 20% Inhal Soln (4ml) IH SCH ×2 (07:55→20:33)
[2017-12-14 08:15] LABS: GRAN # 6.33 (1.4-6.5); GRAN % 81.6 % (50.0-68.0); LYMPH # 0.9 (1.2-3.4); LYMPH % 11.7 % (22.0-35.0); MEAN CELL VOLUME 118.5 fl (80.0-105.0); MEAN CORPUSCULAR HEMOGLOBIN 36.4 pg (25.0-35.0); MEAN CORPUSCULAR HGB CONC 30.7 g/dl (31.0-37.0); MEAN PLATELET VOLUME 10.5 fl (7.0-11.0); MONO # 0.5 (0.1-0.6); MONO % 6.7 % (1.0-6.0); PLATELET COUNT 117 10^3/uL (120.0-450.0); RBC 3.57 10^6/uL (3.5-6.1); RED CELL DISTRIBUTION WIDTH 16.5 % (11.5-14.5); WHITE BLOOD COUNT 7.8 10^3/uL (4.5-11.0)
[2017-12-14 09:00] LABS: ALB/GLOB RATIO 0.9 (1.1-1.8); ALBUMIN 3.3 g/dL (3.0-4.8)
[2017-12-14 09:02] LABS: CORRECTED WBC 7.4 K/mm3 (4.5-11.0); LYMPHOCYTE 8 % (22.0-35.0); MONOCYTE 4 % (1.0-6.0); NEUTROPHIL 88 % (50.0-70.0); NUCLEATED RED BLOOD CELL 6 %
[2017-12-14 09:03] LABS: POIKILOCYTOSIS 1+; POLYCHROMASIA 1+
[2017-12-14 09:04] LABS: ANISOCYTOSIS 1+; MICROCYTOSIS 1+
[2017-12-14 09:05] LABS: LARGE PLATELETS PRESENT; TARGET CELLS 1+
[2017-12-14] MEDS: MethylPREDNISolone 40 mg Vial IVP SCH (09:13)
[2017-12-14] MEDS: Pantoprazole 40 mg EC Tab PO SCH (09:13)
[2017-12-14] MEDS: Insulin Reg-HIGH-Coverage SC SCH ×4 (09:18→21:33)
[2017-12-14] MEDS: Hydrocortisone 2.5% Rectal Cream(30 gm) PR SCH ×3 (09:52→19:35)
--- NOTE | 2017-12-14 11:37 | PN ---
DATE: 12/14/2017 SUBJECTIVE: The patient is currently seen lying in bed in CCU bed 6. She has been downgraded and is waiting a telemetry transfer. She tolerated yesterday's dialysis well with removal of 2100 mL of fluid. The patient has no acute respiratory issues this morning. She is less short of breath. MEDICATIONS: Medication list reviewed. The patient is currently on acetylcysteine inhalation therapy, Anusol, Azactam, Benadryl, Brovana, Claritin, Coreg, Dulcolax, DuoNeb, subcu heparin, sliding scale insulin, Lopressor, Protonix, Pulmicort, Renagel, Singulair and Solu-Medrol. OBJECTIVE: INTAKE/OUTPUT: Intake 1400, output 2100. VITAL SIGNS: Blood pressure 124/44, respiratory rate is 25 with a pulse of 80, temperature is 98 degrees. HEENT: Shows her to be normocephalic, atraumatic. Conjunctivae are pink. Sclerae are nonicteric. NECK: Supple. No neck vein distention. CHEST: Clear to auscultation and percussion. Slight decreased breath sounds at the bases, but no rales, wheezing or rhonchi. CARDIOVASCULAR: Shows a regular rate and rhythm with MR/TR. No S3, no S4 and no rub. ABDOMEN: Moderately obese. Mild distention. Soft, nontender. Bowel sounds are normal. No rebound, guarding or masses. EXTREMITIES: Show no lower extremity pitting edema. She does have puffiness of her right upper extremity, nonpitting. Positive right chest wall PermCath, which is being used for dialysis on an as-needed basis. NEURO: Shows her to be alert, oriented. She is less confused. She recognizes me. She knows she is in the hospital and she is somewhat oriented to time. LABORATORY DATA AND IMAGING: CBC today white blood cell count 7.8, hemoglobin 13, platelet count of 117,000. Yesterday's blood gas showed a venous pH of 7.26 with a pCO2 of 61 and an oxygen saturation of 98% with a pO2 of 208. Chemistries today, electrolytes are acceptable. Potassium 3.7, BUN 55 with a creatinine of 4.1. Glucose is elevated at 327. Calcium, phosphorus, magnesium level are all within normal limits. Liver enzymes are acceptable with the exception of mild elevation of her alkaline phosphatase. Microbiology: All cultures are negative. Blood cultures negative at 5 days. Admitting chest x-ray showed a possible right lower lobe pneumonia. ASSESSMENT: 1. Dyspnea, significantly better. Congestive heart failure is successfully treated with dialysis and ultrafiltration. Her pneumonia is being treated with antibiotic therapy. The patient remains on steroids and inhalation therapy for her asthma and chronic obstructive pulmonary disease. 2. Hypotension. The patient's blood pressure appears to have normalized. She did not require pressor support with dialysis yesterday. 3. History of asthma with chronic obstructive pulmonary disease. The patient continues to retain CO2. Continue to monitor the patient closely. 4. History of end-stage renal disease. The patient will continue Friday, Friday and Friday dialysis. That was her original schedule. 5. History of atherosclerotic heart disease, status post percutaneous transluminal coronary angioplasty and stents, history of cardiomyopathy with mitral regurgitation/tricuspid regurgitation. The patient appears to have had a significant reduction in her ejection fraction down to 30%, this coming from an echocardiogram done at [facility]. The patient was to have had an automatic implantable cardioverter-defibrillator. Instead, she is using a LifeVest, being followed by Cardiology as necessary. 6. History of anemia. Hemoglobin has been excellent. No Aranesp. 7. History of secondary hyperparathyroidism. Calcium and phosphorus levels are normal. The patient continues a renal diet and binder therapy. PLAN: 1. Agree with decision to physically move the patient out of the CCU today. She can go to telemetry. 2. Continue to monitor her pulmonary status given her pneumonia, COPD and asthma. 3. Hemodialysis tomorrow with ultrafiltration of 2-2.5 L as tolerated. 4. P.r.n. ProAmatine for blood pressures support. 5. 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 Nishant Mack MD
--- NOTE | 2017-12-14 16:17 | PN ---
DATE: 12/14/2017 PULMONARY PROGRESS NOTE REFERRING PHYSICIAN: Taylor House MD. SUBJECTIVE: The patient is lying in the bed. Head at 45 degrees. Night was unremarkable. Moved to telemetry. Still has some cough and shortness of breath. No hemoptysis. No hematemesis. No hematuria. No diarrhea. No significant leg swelling. OBJECTIVE: GENERAL: In no acute distress. VITAL SIGNS: Temperature is 98, heart rate is 75, respiratory rate is 18, blood pressure 147/73, pulse ox 100% on nasal cannula. HEENT: Moist mucous membrane. Crowded airway. Mallampati score is 4. NECK: Supple. No JVD. LUNGS: Have a prolonged expiratory phase. Not much wheezing. HEART: S1 and S2. ABDOMEN: Soft, nontender. No organomegaly. EXTREMITIES: No edema of the lower extremities. Does have edema of the upper extremities. NEUROLOGICAL: Awake, alert, confused. MEDICATIONS: She is on Mucomyst inhaled twice a day, Anusol rectally twice a day, Azactam 1 g IV every 8 hours, Benadryl 25 mg every 8 hours p.r.n., Brovana inhaled twice a day, Claritin 10 mg daily, Coreg 3.125 mg twice a day, Dulcolax 10 mg rectally, DuoNeb every 2 hours p.r.n., heparin 5000 units subcu every 12 hours, metoprolol tartrate 25 mg twice a day, Protonix 40 mg daily, Pulmicort inhaled twice a day, Renagel 3 times a day, Singulair 10 mg daily, Solu-Medrol 20 mg every 12 hours. LABORATORY DATA: Shows hemoglobin 13, hematocrit 42.3, WBC 7.8, platelet count is 117. Sodium 134, potassium 3.7, chloride 97, bicarbonate 26, BUN 55, creatinine 4.1, glucose 327, calcium 9, phosphorus 4.1, magnesium 2, AST 15, ALT 20, alk phos is 159, albumin is 3.3. Microbiology: Blood culture, nares culture, there is no growth. IMPRESSION AND PLAN: Respiratory failure with CO2 retention and hypoxemia, pulmonary infiltrate, pulmonary hypertension, renal failure, dialysis dependent, cardiomyopathy, coronary artery disease, morbid obesity. Pulmonary point of view, doing Okay. Decrease Solu-Medrol to daily basis. Keep head 45 degrees up. Encourage BiPAP use at nighttime, titrate FiO2 in the daytime to pulse oximetry 88-90%. Gastric and deep venous thrombosis prophylaxis. Thank you and we will follow with you. Joss Arias MD
--- NOTE | 2017-12-14 16:45 | PN ---
DATE: 12/13/2017 LABORATORY ASSISTANT NOTE SUBJECTIVE: The patient is resting in the bed with O2 via nasal cannula, awake and alert, responding appropriately. No respiratory distress at this time. The patient has no complaints of cough. No congestion. No fever, chills, nausea, or vomiting. PHYSICAL EXAMINATION: VITAL SIGNS: Note that her temperature is 98, pulse is 80, respirations are 20, BP is 124/44. SKIN: Warm and dry. HEAD: Atraumatic, normocephalic. EYES: Reactive to light. EAR, NOSE and THROAT: Seemed to be within normal limits. NECK: Supple. No JVD. No thyroid enlargement. No lymph nodes. HEART: Has regular rate and rhythm. Normal S1, S2. LUNGS: Reveal decreased breath sounds at the bases. ABDOMEN: Soft. Decreased bowel sounds. GENITALIA AND RECTAL: Deferred. MUSCULOSKELETAL: No joint deformities. EXTREMITIES: Reveal positive lower extremity edema. NEUROLOGIC: She seemed to be grossly intact. LABORATORY DATA: As far as her laboratories are concerned, her white count is 7.8, hemoglobin is 13, hematocrit 42.3 with platelets of 117,000. Sodium is 134, potassium 3.7, chloride 97, CO2 of 26 with a BUN of 55, creatinine of 4.1, and a glucose of 327. IMPRESSION: As far as my impression, this patient presented with altered mental status and respiratory failure along with hypotension. The patient at this time is off all pressors. Blood pressure is stable, oriented x3, awake and alert. She gets dialysis for end-stage renal disease and has pneumonia with severe chronic obstructive pulmonary disease and hypercapnia. The patient has a history of coronary artery disease, diabetes, hypertension and is noted to have right lower lobe pneumonia with mild pleural effusion. PLAN: We will continue with Mucomyst and aggressive pulmonary toilet. The patient will get Azactam, Benadryl, Brovana, Claritin, Coreg, as well as DuoNeb. She is getting metoprolol, Protonix. We will continue to treat aggressively along with the other consultants and the primary care doctor. Vadim Ricci MD [facility] # [id number]
--- NOTE | 2017-12-14 17:24 | CP.PCM.PN ---
Subjective - Date & Time of Evaluation Date of Evaluation: 12/14/17 Time of Evaluation: 13:00 - Subjective Subjective: Infectious Disease Follow Up: December 14, 2017 72 yo [place]ovan speaking female presenting to [facility] with back pain on sitting down. Patient was found to be hypotensive in ER. The patient has an extensive medical history that includes ESRD on HD, CAD, CHF with EF of 35%, occluded heart vessels, DM, HTN, and ischemic cardiomyopathy. The patient is unable to provide any additional information at this time. Blood pressure improved after 1L fluid bolus on admission. The patient is awake, alert, and orientated times 3 now. Received HD. She is able to answer questions appropriately. Maintained on nasal cannula with supplemental O2. Overall improved compared to admission. No new issues. Objective - Vital Signs/Intake and Output Vital Signs (last 24 hours): Temp Pulse Resp BP Pulse Ox 98.2 F 80 20 80/59 L 100 12/14/17 12:00 12/14/17 14:00 12/14/17 12:29 12/14/17 12:29 12/14/17 12:29 Intake and Output: 12/14/17 12/14/17 06:59 18:59 Intake Total 350 Output Total 1 Balance 349 - Medications Medications: Current Medications Acetylcysteine (Acetylcysteine 20%) 4 ml IH 0800,2000 [facility] Last Admin: 12/14/17 07:55 Dose: 4 ml Albuterol/Ipratropium (Duoneb 3 Mg/0.5 Mg (3 Ml) Ud) 3 ml IH Q2H PRN PRN Reason: Shortness of Breath Last Admin: 12/13/17 04:44 Dose: 3 ml Arformoterol Tartrate (Brovana) 15 mcg IH [id number] [facility] Last Admin: 12/14/17 07:54 Dose: 15 mcg Bisacodyl (Dulcolax) 10 mg RC DAILY [facility] Last Admin: 12/14/17 09:16 Dose: 10 mg Budesonide (Pulmicort Respules) 0.5 mg IH [id number] [facility] Last Admin: 12/14/17 07:54 Dose: 0.5 mg Carvedilol (Coreg) 3.125 mg PO BID [facility] Last Admin: 12/14/17 09:14 Dose: 3.125 mg Diphenhydramine HCl (Benadryl) 25 mg PO Q8 PRN PRN Reason: Itching / Pruritus Last Admin: 12/13/17 15:20 Dose: 25 mg Heparin Sodium (Porcine) (Heparin) 5,000 units SC Q12 [facility]; Protocol Last Admin: 12/14/17 09:13 Dose: 5,000 units Hydrocortisone (Anusol-Hc) 0 gm [place] BID [facility] Last Admin: 12/14/17 09:52 Dose: 1 cre NOREPINEPHRINE BIT/0.9 % NACL (Levophed 4 Mg/ 250 Ml Ns Premixed) 4 mg in 250 mls @ 15 mls/hr IV .[id number] PRN; Protocol PRN Reason: TITRATE PER MD ORDER Last Titration: 12/09/17 15:50 Dose: 0 mcg/min, 0 mls/hr Aztreonam (Azactam 1 Gm) 100 mls @ 100 mls/hr IVPB Q8 [facility]; Protocol Last Admin: 12/14/17 14:53 Dose: 100 mls/hr Insulin Human Regular (Humulin R High) 0 units SC ACHS [facility]; Protocol Last Admin: 12/14/17 11:36 Dose: 12 units Loratadine (Claritin) 10 mg PO DAILY [facility] Last Admin: 12/14/17 09:16 Dose: 10 mg Methylprednisolone (Solu-Medrol) 20 mg IVP DAILY [facility] Metoprolol Tartrate (Lopressor) 25 mg PO BID [facility] Last Admin: 12/14/17 09:15 Dose: 25 mg Montelukast Sodium (Singulair) 10 mg PO HS [facility] Last Admin: 12/13/17 22:12 Dose: 10 mg Pantoprazole Sodium (Protonix Ec Tab) 40 mg PO ACB [facility] Last Admin: 12/14/17 09:13 Dose: 40 mg Sevelamer HCl (Renagel) 1,600 mg PO TID [facility] Last Admin: 12/14/17 14:53 Dose: 1,600 mg - Labs Labs: 12/14/17 08:00 12/14/17 08:00 - Constitutional Appears: Non-toxic, No Acute Distress, Chronically Ill - Head Exam Head Exam: ATRAUMATIC, NORMOCEPHALIC - Eye Exam Eye Exam: EOMI, PERRL Pupil Exam: NORMAL ACCOMODATION, PERRL - ENT Exam ENT Exam: Mucous Membranes Moist, Normal External Ear Exam, TM's Normal Bilaterally - Neck Exam Neck Exam: Full ROM, Normal Inspection - Respiratory Exam Respiratory Exam: Clear to Ausculation Bilateral, NORMAL BREATHING PATTERN. absent: Rales, Rhonchi, Wheezes - Cardiovascular Exam Cardiovascular Exam: REGULAR RHYTHM, RRR, +S1, +S2 - GI/Abdominal Exam GI & Abdominal Exam: Distended, Soft, Normal Bowel Sounds. absent: Tenderness - Extremities Exam Extremities Exam: Full ROM, Normal Inspection - Neurological Exam Neurological Exam: Alert, Awake, CN II-XII Intact, Oriented x3 - Psychiatric Exam Psychiatric exam: Normal Affect, Normal Mood - Skin Skin Exam: Dry, Intact, Normal Color Assessment and Plan - Assessment and Plan (Free Text) Assessment: 72 yo female known to me from previous hospitalizations to [facility]. The patient with initial complaint of back pain on sitting down . Found to be hypotensiive at this time. Antibiotics and fluids started. The patient is more awake and alert compared to admission. Blood pressure has improved with 1L of fluids. Started on Aztreonam for antibiotic coverage with single dose of Vancomycin IV and Gentamicin IV. Nam cultures sent. No leukocytosis. Supportive care. If there is continued worsening, will have to consider use of Cefepime despite PCN allergy. Awaiting culture results. The patient is awake and alert now but confused. The patient can follow commands. Not hypotensive at this time. Cultures with no growth at this time after 3 days. Maintain Broad antibiotic coverage at this time. No specific source of sepsis seen. Septic versus Cardiogenic shock on initial presentation. No specific infectious etiology found at this time. On Aztreonam at this time. Consider 7 to 10 days of antibiotics in total. More likely Cardiogenic in origin. Nearing completion of Aztreonam. Supportive care. Patient improving so far. Thank you for allowing me to participate in the care of this patient, we will follow with you.
--- NOTE | 2017-12-14 23:59 | PN ---
DATE: 12/14/2017 SUBJECTIVE: The patient is a 72-year-old female. The patient was seen and examined at the bedside on 12/14/2017. Looking comfortable. Transferred from unit to the telemetry. Looking better. No hematuria. No diarrhea. No swelling of the legs. No chest pain. No palpitation. No headache. No dizziness. PHYSICAL EXAMINATION: VITAL SIGNS: Temperature 98, heart rate 75, respiratory rate 18, blood pressure 140/70, pulse oximetry 100% on nasal cannula. HEENT: Head normocephalic, atraumatic. Eyes; PERRLA. Extraocular muscles intact. Conjunctivae clear. Nose patent. Mucous membrane moist. NECK: Supple. No carotid bruit. No thyromegaly. CHEST: Have prolonged expiratory phase, not much wheezing. HEART: S1 and S2 positive. ABDOMEN: Soft. Nontender. No organomegaly. EXTREMITIES: No edema. No cyanosis. NEUROLOGICAL: The patient is awake and alert. Moving all four extremities, but confused. MEDICATIONS: Mucomyst, Azactam, Benadryl, Brovana, Claritin, Coreg, Dulcolax, DuoNeb, heparin, metoprolol, Protonix, Pulmicort, Renagel, Singulair, and Solu-Medrol at tapering doses. LABORATORY DATA: Hemoglobin 13, hematocrit 42.3, white blood cells 7.3, platelets 117. Sodium 137, potassium 3.7, BUN 55, creatinine 4.1, dialysis dependent, glucose 327. ASSESSMENT AND PLAN: Ms. Debby Olguin is a 72-year-old female, who came with respiratory failure with carbon dioxide retention, hypoxemia, pulmonary infiltrates, pulmonary hypertension, renal failure, dialysis dependent, cardiomyopathy, coronary artery disease, and morbid obesity. She is getting tapering doses of steroids. Encourage BiPAP, titrate FiO2 in the daytime to pulse oximetry 88% to 90% as per Dr. Arias. Gastrointestinal and deep venous thrombosis prophylaxis. Physical therapy. We will follow. Taylor House MD
[2017-12-15] MEDS: Aztreonam 1 Gm in NS 100mL 100 ML IVPB SCH ×3 (06:01→22:15)
[2017-12-15] MEDS: Arformoterol 15 mcg/2 ml Inh Sol IH SCH ×2 (07:22→19:49)
[2017-12-15] MEDS: Budesonide 0.5 mg/2 ml Inhal Susp UD IH SCH ×2 (07:22→19:50)
[2017-12-15] MEDS: Acetylcysteine 20% Inhal Soln (4ml) IH SCH ×2 (07:22→19:49)
[2017-12-15 07:26] LABS: GRAN # 8.43 (1.4-6.5); GRAN % 76.8 % (50.0-68.0); HEMOGLOBIN 11.7 g/dL (12.0-16.0); LYMPH # 1.5 (1.2-3.4); LYMPH % 13.7 % (22.0-35.0); MEAN CELL VOLUME 117.8 fl (80.0-105.0); MEAN CORPUSCULAR HEMOGLOBIN 35.9 pg (25.0-35.0); MEAN CORPUSCULAR HGB CONC 30.5 g/dl (31.0-37.0); MEAN PLATELET VOLUME 11.2 fl (7.0-11.0); MONO % 9.5 % (1.0-6.0); RBC 3.26 10^6/uL (3.5-6.1); RED CELL DISTRIBUTION WIDTH 16.8 % (11.5-14.5)
[2017-12-15 08:42] LABS: ALB/GLOB RATIO 0.8 (1.1-1.8); ALBUMIN 2.9 g/dL (3.0-4.8); CALCIUM 8.9 mg/dL (8.4-10.5)
--- NOTE | 2017-12-15 09:09 | PN ---
DATE: 12/12/2017 SUBJECTIVE: The patient is seen lying in bed in the ICU. She is awake, she is alert. She is still somewhat confused. The son is at bedside. She is responsive, but then she rambles off. PHYSICAL EXAMINATION GENERAL: Elderly lady lying in bed in the ICU. VITAL SIGNS: Blood pressure 126/54, heart rate 88, respiratory rate 18 to 20, temperature 97.9. HEENT: Normocephalic, atraumatic, and positive pallor. NECK: Supple, no JVD. LUNGS: Bilateral rhonchi, prolonged expiration, bilateral equal air entry. CARDIAC: S1 and S2, regular rate and rhythm, no murmur, no rub. ABDOMEN: Obese, distended, soft, nontender, bowel sounds present. EXTREMITIES: No lower extremity edema. LABORATORY DATA: WBC 8.8, hemoglobin 12, hematocrit 41 and platelets 129. Sodium 136, potassium 4, chloride 98, CO2 26, BUN 38, creatinine 3.2, glucose 255, calcium 8.9, phosphorus 4.4, magnesium 2.1, albumin 3.4. CURRENT MEDICATIONS: Mucomyst, Azactam 1 g every 8 hours, Benadryl, Brovana, Claritin, Coreg 3.125 b.i.d., DuoNeb, heparin, insulin, Lopressor 25 b.i.d, Protonix, sevelamer, Singulair and Solu-Medrol. ASSESSMENT: 1. Respiratory failure, respiratory acidosis, chronic obstructive pulmonary disease, it is an asthma exacerbation. 2. Right lower lobe pneumonia? 3. Hypotension. 4. Coronary artery disease, percutaneous transluminal coronary angioplasty and stent. 5. Jek-ujnngha-bbgjgfizz diabetes mellitus. 6. End-stage renal disease. 7. Severe pulmonary hypertension. 8. Cardiac arrhythmia. PLAN: 1. Continue antibiotics for possible pneumonia. 2. Continue beta-rossana as ordered by Cardiology. 3. LifeVest has been discontinued. 4. Ultrafiltration today 2 hours to remove 2 kilograms. 5. Monitor fingersticks. 6. Continue to monitor in the ICU setting. 7. Case discussed with ICU staff. 8. Case discussed with dialysis staff. 9. Case discussed with son at bedside. More than 35 minutes spent in the care of this critically ill patient. Marlyn Snow MD [facility] # [id number]
[2017-12-15] MEDS ORDERED: Doxercalciferol 4 mcg/2 ml Inj IV ONE (10:00)
[2017-12-15] MEDS ORDERED: Darbepoetin Alfa 60 mcg/ml Inj IVP ONE (10:00)
[2017-12-15] MEDS ORDERED: Sodium Chloride 0.9% 250 ML IV STA (12:16)
--- NOTE | 2017-12-15 13:34 | PN ---
DATE: 12/15/2017 REASON FOR THE CONSULTATION AND FOLLOWUP: Cardiac evaluation. Admitted with COPD exacerbation, pneumonia, shortness of breath, status post LifeVest, status post removal of the LifeVest, history of CAD, history of PTCA. SUBJECTIVE: The patient denies any chest pain, shortness of breath, or any palpitation. Feels better, lying flat on the bed. OBJECTIVE: GENERAL: Not in any apparent distress. VITAL SIGNS: Temperature afebrile, heart rate 60, blood pressure 127/80. HEENT: PERRLA. Extraocular muscles intact. NECK: Supple. No carotid bruit. No thyromegaly. CHEST: Clear to auscultation. HEART: S1 and S2 regular. ABDOMEN: Soft. EXTREMITIES: Clubbing and cyanosis negative. LABORATORY DATA: Blood workup as follows: WBC 11, hemoglobin 11. , hematocrit 38.4, platelet count 130. Chemistry shows sodium 130, potassium 4, chloride 90, carbon dioxide 19, anion gap of 19, BUN 73, creatinine 4.7. IMPRESSION: A 72-year-old female with past medical history significant for coronary artery disease, status post percutaneous transluminal coronary angioplasty 5 years ago, being followed by Dr. Sussy De La O and Dr. Motta. Recently, the patient was wearing the LifeVest, came here, repeat echocardiogram done shows a preserved left ventricular function, also the battery is , so LifeVest was discontinued. Admitted with pneumonia, respiratory insufficiency, managed with nonrebreather mask and high-flow oxygen, history of end-stage renal disease, on dialysis, pneumonia, mild cardiomyopathy. RECOMMENDATIONS: Continue aggressive treatment. Continue broad-spectrum antibiotic. Continue DVT prophylaxis. Upon discharge, the patient to be followed up with Dr. Tuttle for electrophysiological study and possible defibrillator placement. Now, the patient's CVS status is stable. Interim, continue low-dose beta rossana, metoprolol 25 mg b.i.d. Continue broad-spectrum antibiotic. Continue dialysis. We will follow with you. Thank you, Dr. House, for providing us the opportunity in taking care of the patient, Debby Olguin. Joss Bah MD [facility] # [id number]
[2017-12-15] MEDS: Hydrocortisone 2.5% Rectal Cream(30 gm) PR SCH ×2 (13:47→17:55)
[2017-12-15] MEDS: Insulin Reg-HIGH-Coverage SC SCH ×3 (13:48→22:18)
[2017-12-15] MEDS: Pantoprazole 40 mg EC Tab PO SCH (13:49)
[2017-12-15] MEDS: MethylPREDNISolone 40 mg Vial IVP SCH (13:52)
--- NOTE | 2017-12-15 14:42 | CP.CCUPN ---
CCU Subjective - Physician Review Events Since Last Encounter (Free Text): 12/15/17 14:32 72F with ESRD on HD, MWF, COPD, dementia being brought back to ICU for hypotention. She was initially admitted last week with hypotension likely secondary to cardio-renal syndrome. She tx with IVF fluids initially and broad spectrum abx. She was dialyzed as well which she is on MWF. Broad abx were narrowed to azactam as her cultures have been negative. She remained hypercapnic and was being tx with Bipap. She also has been having delirium. She was tx out of ICU yesterday 12/04. She had HD this AM and soon after has low BP systol 70-80's. She is not febrile however more lethargic than i remember he r. CCU Objective - Vital Signs / Intake & Output Vital Signs (Last 4 hours): Vital Signs Temp Pulse Resp BP 12/15/17 12:00 97.1 F L 51 L 19 65/46 L Intake and Output (Last 8hrs): Intake & Output 12/14/17 12/15/17 12/15/17 22:59 06:59 14:59 Intake Total 120 560 Output Total 2100 Balance 120 -1540 Weight 76.657 kg Intake: IV 200 Right Upper arm 200 Oral 120 360 Output: Other 2100 Other: # Voids Urine, Voided 0 0 # Bowel Movements 1 4 - Physical Exam Physical Exam Limitations: Positive for: Altered Mental Status Head: Positive for: Atraumatic, Normocephalic Pupils: Positive for: PERRL Extroacular Muscles: Positive for: EOMI Conjunctiva: Positive for: Normal Mouth: Positive for: Moist Mucous Membranes Neck: Positive for: Normal Range of Motion Respiratory/Chest: Positive for: Wheezes. Negative for: Respiratory Distress, Accessory Muscle Use Cardiovascular: Positive for: Regular Rate and Rhythm, Normal S1, S2. Negative for: Murmurs Abdomen: Positive for: Distention. Negative for: Tenderness, Peritoneal Signs, Rebound Back: Positive for: Normal Inspection Upper Extremity: Positive for: Normal Inspection. Negative for: Cyanosis, Edema Lower Extremity: Positive for: Normal Inspection. Negative for: Edema Neurological: Positive for: GCS=15, CN II-XII Intact, Speech Normal Skin: Positive for: Warm, Dry, Normal Color. Negative for: Rashes Psychiatric: Positive for: Alert, Oriented x 3, Normal Insight, Normal Concentration - Medications Active Medications: Active Medications Generic Name Dose Route Start Last Admin Trade Name Freq PRN Reason Stop Dose Admin Acetylcysteine 4 ml 12/13/17 22:22 12/15/17 07:22 Acetylcysteine 20% IH 4 ml 08,1999 [facility] Administration Albuterol/Ipratropium 3 ml 12/08/17 14:37 12/13/17 04:44 Duoneb 3 Mg/0.5 Mg (3 Ml) Ud IH 3 ml Q2H PRN Administration Shortness of Breath Arformoterol Tartrate 15 mcg 12/12/17 08:00 12/15/17 07:22 Brovana IH 15 mcg [id number] [facility] Administration Bisacodyl 10 mg 12/10/17 10:00 12/15/17 13:47 Dulcolax RC Not Given DAILY [facility] Budesonide 0.5 mg 12/12/17 08:00 12/15/17 07:22 Pulmicort Respules IH 0.5 mg [id number] [facility] Administration Diphenhydramine HCl 25 mg 12/11/17 15:33 12/15/17 01:12 Benadryl PO 25 mg Q8 PRN Administration Itching / Pruritus Heparin Sodium (Porcine) 5,000 units 12/08/17 22:00 12/15/17 13:54 Heparin SC 5,000 units Q12 [facility] Administration Protocol Hydrocortisone 0 gm 12/13/17 18:15 12/15/17 13:47 Anusol-Hc GA Not Given BID [facility] Aztreonam 100 mls @ 100 mls/hr 12/12/17 22:00 12/15/17 14:01 Azactam 1 Gm IVPB Not Given Q8 [facility] Protocol Insulin Human Regular 0 units 12/12/17 11:30 12/15/17 13:48 Humulin R High SC Not Given ACHS [facility] Protocol Loratadine 10 mg 12/13/17 10:00 12/15/17 13:47 Claritin PO Not Given DAILY [facility] Methylprednisolone 20 mg 12/15/17 10:00 12/15/17 13:52 Solu-Medrol IVP Not Given DAILY [facility] Metoprolol Tartrate 25 mg 12/08/17 18:00 12/15/17 13:49 Lopressor PO Not Given BID [facility] Montelukast Sodium 10 mg 12/12/17 22:00 12/14/17 21:38 Singulair PO 10 mg HS [facility] Administration Pantoprazole Sodium 40 mg 12/12/17 07:30 12/15/17 13:49 Protonix Ec Tab PO Not Given ACB [facility] Sevelamer HCl 1,600 mg 12/09/17 14:00 12/15/17 14:03 Renagel PO Not Given TID [facility] - Patient Studies Lab Studies: Lab Studies 12/15/17 12/15/17 12/15/17 Range/Units 07:28 07:00 07:00 WBC 11.0 D (4.5-11.0) 10^3/uL RBC 3.26 L (3.5-6.1) 10^6/uL Hgb 11.7 L (12.0-16.0) g/dL Hct 38.4 (36.0-48.0) % MCV 117.8 H (80.0-105.0) fl MCH 35.9 H (25.0-35.0) pg MCHC 30.5 L (31.0-37.0) g/dl RDW 16.8 H (11.5-14.5) % Plt Count 130 (120.0-450.0) 10^3/uL MPV 11.2 H (7.0-11.0) fl Gran % 76.8 H (50.0-68.0) % Lymph % (Auto) 13.7 L (22.0-35.0) % [place] % (Auto) 9.5 H (1.0-6.0) % Eos % (Auto) 0.0 L (1.5-5.0) % Baso % (Auto) 0.0 (0.0-3.0) % Gran # 8.43 H (1.4-6.5) Lymph # (Auto) 1.5 (1.2-3.4) [place] # (Auto) 1.0 H (0.1-0.6) Eos # (Auto) 0.0 (0.0-0.7) Baso # (Auto) 0.00 (0.0-2.0) K/mm3 Sodium 132 (132-148) mmol/L Potassium 4.3 (3.6-5.0) mmol/L Chloride 98 (98-107) mmol/L Carbon Dioxide 19 L (21-33) mmol/L Anion Gap 19 (10-20) BUN 73 H (7-21) mg/dL Creatinine 4.9 H (0.7-1.2) mg/dl Est GFR ( Amer) 10 Est GFR (Non-Af Amer) 9 POC Glucose (mg/dL) 194 H (65-110) mg/dL Random Glucose 184 H (70-110) mg/dL Calcium 8.9 (8.4-10.5) mg/dL Phosphorus 3.8 (2.5-4.5) mg/dL Magnesium 2.2 (1.7-2.2) mg/dL Total Bilirubin 0.9 (0.2-1.3) mg/dL AST 27 (14-36) U/L ALT 18 (7-56) U/L Alkaline Phosphatase 128 H (38-126) U/L Total Protein 6.7 (5.8-8.3) g/dL Albumin 2.9 L (3.0-4.8) g/dL Globulin 3.8 gm/dL Albumin/Globulin Ratio 0.8 L (1.1-1.8) 12/14/17 12/14/17 12/14/17 Range/Units 21:12 16:04 10:36 WBC (4.5-11.0) 10^3/uL RBC (3.5-6.1) 10^6/uL Hgb (12.0-16.0) g/dL Hct (36.0-48.0) % MCV (80.0-105.0) fl MCH (25.0-35.0) pg MCHC (31.0-37.0) g/dl RDW (11.5-14.5) % Plt Count (120.0-450.0) 10^3/uL MPV (7.0-11.0) fl Gran % (50.0-68.0) % Lymph % (Auto) (22.0-35.0) % [place] % (Auto) (1.0-6.0) % Eos % (Auto) (1.5-5.0) % Baso % (Auto) (0.0-3.0) % Gran # (1.4-6.5) Lymph # (Auto) (1.2-3.4) [place] # (Auto) (0.1-0.6) Eos # (Auto) (0.0-0.7) Baso # (Auto) (0.0-2.0) K/mm3 Sodium (132-148) mmol/L Potassium (3.6-5.0) mmol/L Chloride (98-107) mmol/L Carbon Dioxide (21-33) mmol/L Anion Gap (10-20) BUN (7-21) mg/dL Creatinine (0.7-1.2) mg/dl Est GFR ( Amer) Est GFR (Non-Af Amer) POC Glucose (mg/dL) 137 H 161 H 362 H (65-110) mg/dL Random Glucose (70-110) mg/dL Calcium (8.4-10.5) mg/dL Phosphorus (2.5-4.5) mg/dL Magnesium (1.7-2.2) mg/dL Total Bilirubin (0.2-1.3) mg/dL AST (14-36) U/L ALT (7-56) U/L Alkaline Phosphatase (38-126) U/L Total Protein (5.8-8.3) g/dL Albumin (3.0-4.8) g/dL Globulin gm/dL Albumin/Globulin Ratio (1.1-1.8) 12/14/17 12/13/17 12/13/17 Range/Units 07:36 21:45 16:18 WBC (4.5-11.0) 10^3/uL RBC (3.5-6.1) 10^6/uL Hgb (12.0-16.0) g/dL Hct (36.0-48.0) % MCV (80.0-105.0) fl MCH (25.0-35.0) pg MCHC (31.0-37.0) g/dl RDW (11.5-14.5) % Plt Count (120.0-450.0) 10^3/uL MPV (7.0-11.0) fl Gran % (50.0-68.0) % Lymph % (Auto) (22.0-35.0) % [place] % (Auto) (1.0-6.0) % Eos % (Auto) (1.5-5.0) % Baso % (Auto) (0.0-3.0) % Gran # (1.4-6.5) Lymph # (Auto) (1.2-3.4) [place] # (Auto) (0.1-0.6) Eos # (Auto) (0.0-0.7) Baso # (Auto) (0.0-2.0) K/mm3 Sodium (132-148) mmol/L Potassium (3.6-5.0) mmol/L Chloride (98-107) mmol/L Carbon Dioxide (21-33) mmol/L Anion Gap (10-20) BUN (7-21) mg/dL Creatinine (0.7-1.2) mg/dl Est GFR ( Amer) Est GFR (Non-Af Amer) POC Glucose (mg/dL) 284 H 333 H 341 H (65-110) mg/dL Random Glucose (70-110) mg/dL Calcium (8.4-10.5) mg/dL Phosphorus (2.5-4.5) mg/dL Magnesium (1.7-2.2) mg/dL Total Bilirubin (0.2-1.3) mg/dL AST (14-36) U/L ALT (7-56) U/L Alkaline Phosphatase (38-126) U/L Total Protein (5.8-8.3) g/dL Albumin (3.0-4.8) g/dL Globulin gm/dL Albumin/Globulin Ratio (1.1-1.8) 12/13/17 12/13/17 12/12/17 Range/Units 11:29 07:30 21:54 WBC (4.5-11.0) 10^3/uL RBC (3.5-6.1) 10^6/uL Hgb (12.0-16.0) g/dL Hct (36.0-48.0) % MCV (80.0-105.0) fl MCH (25.0-35.0) pg MCHC (31.0-37.0) g/dl RDW (11.5-14.5) % Plt Count (120.0-450.0) 10^3/uL MPV (7.0-11.0) fl Gran % (50.0-68.0) % Lymph % (Auto) (22.0-35.0) % [place] % (Auto) (1.0-6.0) % Eos % (Auto) (1.5-5.0) % Baso % (Auto) (0.0-3.0) % Gran # (1.4-6.5) Lymph # (Auto) (1.2-3.4) [place] # (Auto) (0.1-0.6) Eos # (Auto) (0.0-0.7) Baso # (Auto) (0.0-2.0) K/mm3 Sodium (132-148) mmol/L Potassium (3.6-5.0) mmol/L Chloride (98-107) mmol/L Carbon Dioxide (21-33) mmol/L Anion Gap (10-20) BUN (7-21) mg/dL Creatinine (0.7-1.2) mg/dl Est GFR ( Amer) Est GFR (Non-Af Amer) POC Glucose (mg/dL) 326 H 309 H 338 H (65-110) mg/dL Random Glucose (70-110) mg/dL Calcium (8.4-10.5) mg/dL Phosphorus (2.5-4.5) mg/dL Magnesium (1.7-2.2) mg/dL Total Bilirubin (0.2-1.3) mg/dL AST (14-36) U/L ALT (7-56) U/L Alkaline Phosphatase (38-126) U/L Total Protein (5.8-8.3) g/dL Albumin (3.0-4.8) g/dL Globulin gm/dL Albumin/Globulin Ratio (1.1-1.8) Laboratory Results - last 24 hr 12/12/17 12/13/17 12/13/17 21:54 07:30 11:29 WBC RBC Hgb Hct MCV MCH MCHC RDW Plt Count MPV Gran % Lymph % (Auto) [place] % (Auto) Eos % (Auto) Baso % (Auto) Gran # Lymph # (Auto) [place] # (Auto) Eos # (Auto) Baso # (Auto) Sodium Potassium Chloride Carbon Dioxide Anion Gap BUN Creatinine Est GFR ( Amer) Est GFR (Non-Af Amer) POC Glucose (mg/dL) 338 H 309 H 326 H Random Glucose Calcium Phosphorus Magnesium Total Bilirubin AST ALT Alkaline Phosphatase Total Protein Albumin Globulin Albumin/Globulin Ratio 12/13/17 12/13/17 12/14/17 16:18 21:45 07:36 WBC RBC Hgb Hct MCV MCH MCHC RDW Plt Count MPV Gran % Lymph % (Auto) [place] % (Auto) Eos % (Auto) Baso % (Auto) Gran # Lymph # (Auto) [place] # (Auto) Eos # (Auto) Baso # (Auto) Sodium Potassium Chloride Carbon Dioxide Anion Gap BUN Creatinine Est GFR ( Amer) Est GFR (Non-Af Amer) POC Glucose (mg/dL) 341 H 333 H 284 H Random Glucose Calcium Phosphorus Magnesium Total Bilirubin AST ALT Alkaline Phosphatase Total Protein Albumin Globulin Albumin/Globulin Ratio 12/14/17 12/14/17 12/14/17 10:36 16:04 21:12 WBC RBC Hgb Hct MCV MCH MCHC RDW Plt Count MPV Gran % Lymph % (Auto) [place] % (Auto) Eos % (Auto) Baso % (Auto) Gran # Lymph # (Auto) [place] # (Auto) Eos # (Auto) Baso # (Auto) Sodium Potassium Chloride Carbon Dioxide Anion Gap BUN Creatinine Est GFR ( Amer) Est GFR (Non-Af Amer) POC Glucose (mg/dL) 362 H 161 H 137 H Random Glucose Calcium Phosphorus Magnesium Total Bilirubin AST ALT Alkaline Phosphatase Total Protein Albumin Globulin Albumin/Globulin Ratio 12/15/17 12/15/17 12/15/17 07:00 07:00 07:28 WBC 11.0 D RBC 3.26 L Hgb 11.7 L Hct 38.4 MCV 117.8 H MCH 35.9 H MCHC 30.5 L RDW 16.8 H Plt Count 130 MPV 11.2 H Gran % 76.8 H Lymph % (Auto) 13.[address] % (Auto) 9.5 H Eos % (Auto) 0.0 L Baso % (Auto) 0.0 Gran # 8.43 H Lymph # (Auto) 1.5 [place] # (Auto) 1.0 H Eos # (Auto) 0.0 Baso # (Auto) 0.00 Sodium 132 Potassium 4.3 Chloride 98 Carbon Dioxide 19 L Anion Gap 19 BUN 73 H Creatinine 4.9 H Est GFR ( Amer) 10 Est GFR (Non-Af Amer) 9 POC Glucose (mg/dL) 194 H Random Glucose 184 H Calcium 8.9 Phosphorus 3.8 Magnesium 2.2 Total Bilirubin 0.9 AST 27 ALT 18 Alkaline Phosphatase 128 H Total Protein 6.7 Albumin 2.9 L Globulin 3.8 Albumin/Globulin Ratio 0.8 L Fingerstick Blood Sugar Results: 163 Critical Care Progress Note - Nutrition Nutrition: Nutrition Category Date Time Status Renal Diet [DIET] Diets 12/09/17 Lunch Ordered Assessment/Plan - Assessment and Plan (Free Text) Assessment: 72F with ESRD on HD, MWF, COPD, dementia returning to ICU with hypotension. I suspect her BP is low because of her HD. She has been net neg 3-4L over the past few days and she may need some volume back. I do not suspect infection given lack of fevers however will re-culture her. I am trying to avoid put her back on broad abx since she just got off of them. If she does not respond to fluid resuscitation, will then broaden abx. 1L bolus NS will place TLC and a-line check ABG, bipap if needed otherwise QHS HD as per renal Blood cultures, Urine Cx, Sputum cultures, CXR Contact ID also about abx Cont steroids as is for now Pal care consult DVT ppx: hep SQ GI ppx with PPI FULL CODE Viviana Rosario MD Japanese Professor
--- NOTE | 2017-12-15 17:02 | PN ---
DATE: 12/15/2017 SUBJECTIVE: The patient is seen lying in bed. She is seen post dialysis. She is very lethargic. She is barely arousable. Her blood pressure is 65 systolic. Her dialysis treatment was terminated 30 minutes early because of low blood pressure. She received 10 mg of ProAmatine during dialysis. Also, she had ultrafiltration of 1500 mL only during dialysis. Currently, she is arousable, talking unintelligibly. Unable to comprehend what she is saying. On questioning if she has pain, she is pointing to her upper midsternum. PHYSICAL EXAMINATION: GENERAL: Obese elderly lady, lying in bed. VITAL SIGNS: Blood pressure 65/46, heart rate 51, respiratory rate 20, temperature 97.5. HEENT: Normocephalic, atraumatic, positive pallor. NECK: Supple, no JVD. LUNGS: Bilateral equal entry, bilateral rhonchi, prolonged expiration. CARDIAC: S1 and S2, regular rate and rhythm, no murmur, no rub. ABDOMEN: Obese, distended, soft, nontender, bowel sounds present. EXTREMITIES: 2+ pitting edema of the upper extremities, 1+ pitting edema of the lower extremities. LABORATORY DATA: WBC 11, hemoglobin 11.7, hematocrit 38, platelets 130. Sodium 132, potassium 4.3, chloride 98, CO2 of 19, BUN 73, creatinine 4.9, glucose 184, calcium 8.9, phosphorus 3.8, magnesium 2.2, AST 27, ALT 18, albumin 2.9. MEDICATIONS: Mucomyst 20%, Azactam 1 g every 8, Brovana, Claritin, DuoNeb, Lopressor 25 b.i.d., Protonix, Renagel 1600 t.i.d., Singulair, Solu-Medrol. Assessment: 1. Profound persistent hypotension. 2. Increased lethargy, altered mental status. 3. Elevated WBC count. 4. Noninsulin-dependent diabetes mellitus. 5. End-stage renal disease. 6. Anemia of chronic kidney disease. 7. Respiratory failure? PLAN: 1. ICU evaluation, needs close monitoring of her blood pressure. 2. Rule out sepsis, panculture once again. 3. Continue antibiotics. 4. Fluid challenge 250 mL of normal saline x1. 5. Continue ProAmatine for blood pressure. 6. Evaluate for Levophed/inotropes. 7. Case discussed with nursing staff, case discussed with nurse practitioner, case discussed with dialysis staff. More than 35 minutes spent in the care of this critically ill patient. Marlyn Snow MD
[2017-12-15 20:41] LABS: VENOUS BLOOD GAS BASE EXCESS -3.5 mmol/L (0.0-2.0); VENOUS BLOOD GAS PO2 193 mm/Hg (30-55); VENOUS BLOOD PH 7.25 (7.32-7.43)
--- NOTE | 2017-12-15 21:06 | CP.PCM.PN ---
Subjective - Date & Time of Evaluation Date of Evaluation: 12/15/17 Time of Evaluation: 18:30 - Subjective Subjective: Infectious Disease Follow Up: December 15, 2017 72 yo [place] speaking female presenting to [facility] with back pain on sitting down. Patient was found to be hypotensive in ER. The patient has an extensive medical history that includes ESRD on HD, CAD, CHF with EF of 35%, occluded heart vessels, DM, HTN, and ischemic cardiomyopathy. The patient is unable to provide any additional information at this time. Blood pressure improved after 1L fluid bolus on admission. The patient is awake, alert, and orientated times 3 now. Received HD. She is able to answer questions appropriately. Maintained on nasal cannula with supplemental O2. The patient was hypotensive during HD today and brought back to the MICU. The patient appears more fatigued than yesterday. Objective - Vital Signs/Intake and Output Vital Signs (last 24 hours): Temp Pulse Resp BP Pulse Ox 97.4 F L 67 17 93/46 L 92 L 12/15/17 18:40 12/15/17 18:30 12/15/17 18:30 12/15/17 18:30 12/15/17 18:30 Intake and Output: 12/15/17 12/16/17 18:59 06:59 Intake Total 100 Output Total 1500 Balance -1400 - Medications Medications: Current Medications Acetylcysteine (Acetylcysteine 20%) 4 ml IH 0800,2000 [facility] Last Admin: 12/15/17 19:49 Dose: 4 ml Albuterol/Ipratropium (Duoneb 3 Mg/0.5 Mg (3 Ml) Ud) 3 ml IH Q2H PRN PRN Reason: Shortness of Breath Last Admin: 12/13/17 04:44 Dose: 3 ml Arformoterol Tartrate (Brovana) 15 mcg IH [id number] [facility] Last Admin: 12/15/17 19:49 Dose: 15 mcg Bisacodyl (Dulcolax) 10 mg RC DAILY [facility] Last Admin: 12/15/17 13:47 Dose: Not Given Budesonide (Pulmicort Respules) 0.5 mg IH [id number] [facility] Last Admin: 12/15/17 19:50 Dose: 0.5 mg Diphenhydramine HCl (Benadryl) 25 mg PO Q8 PRN PRN Reason: Itching / Pruritus Last Admin: 12/15/17 01:12 Dose: 25 mg Heparin Sodium (Porcine) (Heparin) 5,000 units SC Q12 [facility]; Protocol Last Admin: 12/15/17 13:54 Dose: 5,000 units Hydrocortisone (Anusol-Hc) 0 gm MD BID [facility] Last Admin: 12/15/17 17:55 Dose: 1 cre Aztreonam (Azactam 1 Gm) 100 mls @ 100 mls/hr IVPB Q8 [facility]; Protocol Last Admin: 12/15/17 14:01 Dose: Not Given Insulin Human Regular (Humulin R High) 0 units SC ACHS [facility]; Protocol Last Admin: 12/15/17 18:02 Dose: Not Given Loratadine (Claritin) 10 mg PO DAILY [facility] Last Admin: 12/15/17 13:47 Dose: Not Given Methylprednisolone (Solu-Medrol) 20 mg IVP DAILY [facility] Last Admin: 12/15/17 13:52 Dose: Not Given Metoprolol Tartrate (Lopressor) 25 mg PO BID [facility] Last Admin: 12/15/17 17:54 Dose: Not Given Montelukast Sodium (Singulair) 10 mg PO HS [facility] Last Admin: 12/14/17 21:38 Dose: 10 mg Pantoprazole Sodium (Protonix Ec Tab) 40 mg PO ACB [facility] Last Admin: 12/15/17 13:49 Dose: Not Given Sevelamer HCl (Renagel) 1,600 mg PO TID [facility] Last Admin: 12/15/17 18:02 Dose: Not Given Vitamin A (Vitamin A & D Oint Ud Foilpak) 1 ea TOP Q4H PRN PRN Reason: dry mouth area - Labs Labs: 12/15/17 07:00 12/15/17 07:00 - Constitutional Appears: Confused, Chronically Ill - Head Exam Head Exam: ATRAUMATIC, NORMOCEPHALIC - Eye Exam Eye Exam: EOMI, PERRL Pupil Exam: NORMAL ACCOMODATION, PERRL - ENT Exam ENT Exam: Mucous Membranes Moist, Normal External Ear Exam, TM's Normal Bilaterally - Neck Exam Neck Exam: Full ROM, Normal Inspection - Respiratory Exam Respiratory Exam: Clear to Ausculation Bilateral, NORMAL BREATHING PATTERN. absent: Rales, Rhonchi, Wheezes - Cardiovascular Exam Cardiovascular Exam: REGULAR RHYTHM, RRR, +S1, +S2 - GI/Abdominal Exam GI & Abdominal Exam: Soft, Normal Bowel Sounds. absent: Distended, Tenderness - Extremities Exam Extremities Exam: Full ROM, Normal Inspection - Neurological Exam Neurological Exam: Alert, Awake, CN II-XII Intact Additional comments: Fatigued and occasional confusion. - Psychiatric Exam Psychiatric exam: Normal Affect, Normal Mood - Skin Skin Exam: Intact, Normal Color Assessment and Plan - Assessment and Plan (Free Text) Assessment: 72 yo female known to me from [place] [facility] The p atient with initial complaint of back pain on sitting down . Found to be hypotensiive at this time. Antibiotics and fluids started. The patient is more awake and alert compared to admission. Blood pressure has improved with 1L of fluids. Started on Aztreonam for antibiotic coverage with single dose of Vancomycin IV and Gentamicin IV. Nam cultures sent. No leukocytosis. Supportive care. If there is continued worsening, will have to consider use of Cefepime despite PCN allergy. Awaiting culture results. The patient is awake and alert now but still confused. The patient can follow commands. Not hypotensive at this time. Cultures with no growth at this time after 3 days. Maintain Broad antibiotic coverage at this time. No specific source of sepsis seen. Septic versus Cardiogenic shock on initial presentation. No specific infectious etiology found at this time. On Aztreonam at this time. Consider 7 to 10 days of antibiotics in total. More likely Cardiogenic in origin. Nearing completion of Aztreonam. The patient had hypotension in HD today and was brought back to MICU. Procalcitonin during this hospitalization was 0.81 which is low for a septic picture. The patient in on day 7 of Aztreonam at this time. Thank you for allowing me to participate in the care of this patient, we will follow with you.
--- NOTE | 2017-12-16 03:20 | PN ---
DATE: 12/15/2017 PULMONARY CRITICAL CARE PROGRESS NOTE REFERRING PHYSICIAN: Taylor House MD SUBJECTIVE: She is back in Intensive Care Unit, lying in the bed. PICC line team inserting PICC in left upper extremity. When awake, does not use BiPAP. Confused, cough and wheezing. No nausea. No vomiting. No diarrhea. Does have leg swelling. OBJECTIVE: GENERAL: Mild distress. VITAL SIGNS: Temperature is 98, heart rate 70, respiratory rate is 20, blood pressure 107/83, pulse ox 98% on nasal cannula. HEENT: Moist mucous membrane. Crowded airway. Mallampati score is 4. NECK: Supple. No JVD. LUNGS: Have prolonged expiratory phase with some wheezing. HEART: S1 and S2. ABDOMEN: Soft and nontender. No organomegaly. EXTREMITIES: There is edema. NEUROLOGIC: Awake, alert, but confused. MEDICATIONS: She is on Mucomyst inhaled twice a day, Anusol rectally twice a day, Benadryl 25 mg every 8 hours p.r.n., Brovana inhaled twice a day, albuterol and Atrovent nebulizer every 2 hours p.r.n., heparin 5000 units subcu every 12 hours, metoprolol tartrate 25 mg twice a day, Protonix 40 mg daily, Pulmicort inhaled twice a day, Renagel three times a day, Singulair 10 mg at bedtime, Solu-Medrol 20 mg daily, vitamin A and D. LABORATORY DATA: Shows hemoglobin 11.7, hematocrit 38.4, WBC 11. Her VBG done, which shows pH 7.25, pCO2 is 56. Sodium 132, potassium 4.3, chloride 98, bicarbonate 19, BUN 73, creatinine 4.9, glucose 184, calcium 8.9, phosphorus 3.8, magnesium 2.2, AST 27, ALT 18, alk phos is 128, albumin 2.9. Microbiology: Blood culture and nares culture, there is no growth. IMPRESSION AND PLAN: Respiratory failure with CO2 retention and hypoxemia, pulmonary infiltrate, pulmonary hypertension, renal failure, dialysis dependent, cardiomyopathy, coronary artery disease, morbid obesity. She was brought back to Intensive Care Unit, she became hypotensive. Presently, blood pressure is better. Peripherally inserted central catheter line is being inserted. Daughter is at bedside. We will continue steroids, inhaled bronchodilator, gastric prophylaxis, deep venous thrombosis prophylaxis. Continue steroids. Being followed by Infectious Diseases. Follow up labs in the morning. Thank you and we will follow with you. Joss Arias MD
[2017-12-16 06:50] LABS: ALB/GLOB RATIO 0.9 (1.1-1.8); CALCIUM 8.8 mg/dL (8.4-10.5); EOS # 0.2 (0.0-0.7); EOS % 2.5 % (1.5-5.0); GRAN # 4.59 (1.4-6.5); HEMOGLOBIN 12.8 g/dL (12.0-16.0); LYMPH # 1.3 (1.2-3.4); LYMPH % 19.7 % (22.0-35.0); MEAN CELL VOLUME 117.9 fl (80.0-105.0); MEAN CORPUSCULAR HEMOGLOBIN 35.9 pg (25.0-35.0); MEAN CORPUSCULAR HGB CONC 30.4 g/dl (31.0-37.0); MEAN PLATELET VOLUME 11.4 fl (7.0-11.0); MONO # 0.7 (0.1-0.6); MONO % 9.8 % (1.0-6.0); RBC 3.57 10^6/uL (3.5-6.1); RED CELL DISTRIBUTION WIDTH 17.4 % (11.5-14.5); WHITE BLOOD COUNT 6.8 10^3/uL (4.5-11.0)
[2017-12-16] MEDS ORDERED: Potassium Chloride 20 mEq ER Tab PO ONE (07:45)
[2017-12-16] MEDS: Budesonide 0.5 mg/2 ml Inhal Susp UD IH SCH ×2 (08:00→20:41)
[2017-12-16] MEDS: Arformoterol 15 mcg/2 ml Inh Sol IH SCH (08:00)
[2017-12-16] MEDS: Acetylcysteine 20% Inhal Soln (4ml) IH SCH ×2 (08:00→20:39)
--- NOTE | 2017-12-16 08:30 | PN ---
DATE: 12/15/2017 SUBJECTIVE: Patient is a 72-year-old female. Patient was seen and examined on the bedside on 12/15/2017. Son brought her and niece was on the bedside. Patient was sleepy, arousable. Patient is getting dialysis. Getting BiPAP. No fever. No chills, but still lethargic. PHYSICAL EXAMINATION: VITAL SIGNS: Temperature 97.1, pulse 51, respiratory rate 19, blood pressure 65/46. HEENT: Head: Normocephalic, atraumatic. Eyes: PERRLA. Extraocular muscles intact. Conjunctivae clear. Nose patent. Mucous membrane moist. NECK: Supple. No carotid bruit, JVD, or thyromegaly. CHEST: Bilaterally symmetrical. HEART: S1 and S2 positive. LUNGS: Clear to auscultation. ABDOMEN: Soft. Bowel sounds present. No organomegaly. EXTREMITIES: Trace edema. No cyanosis. NEUROLOGIC: Patient is responding to verbal stimuli, open eyes, but she is not able to follow simple orders. MEDICATIONS: Acetylcysteine, albuterol, Brovana, Dulcolax, Pulmicort, Benadryl, heparin, Anusol, Azactam, insulin, Claritin, Solu-Medrol, and Lopressor. LABORATORY DATA: White blood cells 11, hemoglobin 11.7, hematocrit 38.4, platelets 130. Sodium 132, potassium 4.3, BUN 73, creatinine 4.9, glucose 184. ASSESSMENT AND PLAN: Ms. Debby Olguin is a 72-year-old female with end-stage renal disease, on hemodialysis three times a week; chronic obstructive pulmonary disease; dementia; has hypotension, returning to Intensive Care Unit. Patient was admitted for low blood pressure, was septic, IV antibiotics given. Blood pressure was peaked up. Now again, she has hypotension. Bolus of fluid given. BiPAP started. Blood culture, urine culture, sputum culture, chest x-rays done. Continue steroid. Deep venous thrombosis and gastrointestinal prophylaxes. Seen by Dr. Snow, refrigeration specialist. Patient has profound persistent hypotension with lethargy, altered mental status, [id number] diabetes mellitus, anemia of chronic disease, respiratory failure, fluid challenge. Continue ProAmatine, Levaquin also. Length of time discussion done with the patient's son and daughter. Reviewed the saturation diver and refrigeration specialist notes also. Antibiotics as per Infectious Disease. Patient is on day 7 of aztreonam. We will follow up. Taylor House MD
[2017-12-16 09:29] LABS: ARTERIAL BLOOD GAS HCO3 23.4 mmol/L (21-28); ARTERIAL BLOOD GAS O2 SAT 98.7 % (95-98); ARTERIAL BLOOD GAS PCO2 51 mm/Hg (35-45); ARTERIAL BLOOD GAS PH 7.27 (7.35-7.45)
--- NOTE | 2017-12-16 09:32 | RAD ---
Date of service: 12/16/2017 HISTORY: hypercapnic respiratory failure COMPARISON: Portable chest 12/08/2017. FINDINGS: LUNGS: Atelectasis identified in the mid inferior left lung zones with trace fluid in the minor fissure and possibly right costophrenic sulcus. No left pleural effusion. Lung pepe are otherwise clear. No pneumothorax bilaterally. Right central venous dialysis catheter unchanged in position. PLEURA: As above. CARDIOVASCULAR: Stable cardiomegaly. No pulmonary vascular congestion. Calcific atherosclerotic changes are seen related to the thoracic aorta. OSSEOUS STRUCTURES: No significant abnormalities. VISUALIZED UPPER ABDOMEN: Normal. OTHER FINDINGS: None. IMPRESSION: Diminished right pleural effusion with limited residual. Linear atelectasis left lung as per above. No acute infiltrate bilaterally. No left pleural effusion or pneumothorax bilaterally.
[2017-12-16] MEDS: DOBUTamine 500mg/250ml D5W 500 MG/250 ML BAG IV PRN (10:30)
[2017-12-16] MEDS: Hydrocortisone 2.5% Rectal Cream(30 gm) PR SCH ×2 (11:00→19:04)
[2017-12-16] MEDS: Pantoprazole 40 mg EC Tab PO SCH (11:06)
[2017-12-16] MEDS: MethylPREDNISolone 40 mg Vial IVP SCH (11:07)
[2017-12-16] MEDS: Insulin Reg-HIGH-Coverage SC SCH ×3 (11:08→22:15)
--- NOTE | 2017-12-16 11:16 | PN ---
DATE: 12/16/2017 SUBJECTIVE: The patient was seen and examined at bedside. The patient is somewhat somnolent. She is on BiPap 20/8. She is pulling 300 tidal volume and her respiratory rate is 20. She appears to be alert when I walked in. PHYSICAL EXAMINATION: VITAL SIGNS: Blood pressure 63/30, heart rate 65, respiratory rate 20, oxygen saturation 96% on FIO2 40%. HEENT: Head and neck atraumatic. LUNGS: Clear to auscultation bilaterally. HEART: Regular rate and rhythm. S1 and S2 normal. ABDOMEN: Soft, nontender, nondistended. MUSCULOSKELETAL: Trace bilateral pedal and ankle edema. NEURO: The patient moves all extremities spontaneously. SKIN: Moist. PSYCH: The patient is alert, awake and oriented x3. However, somnolent. Chest x-ray showed diminished right pleural effusion with limited residual linear atelectasis at the left lung. No acute infiltrate bilaterally. No left pleural effusion or pneumothorax bilaterally. Echocardiogram performed on 12/10/2017 (6 days ago) showed the right ventricle that is severely dilated. There is normal right ventricular wall thickness, systolic function of the right ventricle is severely reduced. The right atrium is severely dilated. Interatrial septum is intact with no evidence for an atrial septal defect. The left ventricle is normal size. There is normal left ventricular wall thickness. The left ventricle systolic function is low normal with ejection fraction 50-55%. There is a flattened septum consistent with right ventricle volume and pressure overload. A transmitral Doppler flow pattern showed grade 3 irreversible restrictive diastolic dysfunction. No left ventricle thrombus noted on this study. There is no left ventricular aneurysm even though RVSP was calculated as 34 mmHg in light of severe decrease in the right ventricular systolic function. It may underestimate the severity of pulmonary hypertension. LABORATORY DATA: ABG is 7.27/51/101 on 40% FIO2. Lactic acid level 1.1, glucose 123. WBC 6.8, hemoglobin 12.8, platelet count 129. Sodium 135, potassium 3.5, chloride 100, carbon dioxide 24, BUN 53, creatinine 4.1 (the patient is on dialysis for end stage renal disease), glucose 146. MEDICATIONS: Acetylcysteine, DuoNeb every 2 hours as needed and every 4 hours on standing basis, Dulcolax, budesonide inhaler every 12 hours, Aranesp, dobutamine (waiting for central line to be placed as the patient does not have any IV access for now), heparin 5000 units subcu every 12 hours, ibuprofen p.r.n., regular insulin sliding scale high protocol, Claritin, Solu-Medrol 20 mg IV daily, midodrine, Singulair, Protonix, Renagel. ASSESSMENT: This 72-year-old lady presented with hypercapnic respiratory failure requiring noninvasive positive pressure ventilation in the setting of severe pulmonary hypertension and right ventricular failure. The etiology of severe pulmonary hypertension and right ventricular failure may be complex and include chronic obstructive pulmonary disease and left ventricular diastolic dysfunction. At present time, the patient will be started on Dobutrex for ionotropic support of the right ventricle. We will stop beta-blockers. Conservative fluid management will be provided by dialysis which is covered by Nephrology Service. LEANN/RACHEL may potentially improve cardiac function as well by improving left ventricular end-diastolic volume as well (CLAIM trial; Lancet Respiratory disease 2018). We will continue with systemic steroid taper and inhaled corticosteroids. We will repeat arterial blood gas later on to see if hypercapnia and acute respiratory acidosis improved. We will try to avoid overly aggressive positive pressure ventilation. We will touch base with the patient's family about advance directives for the patient in light of right ventricular failure and severe pulmonary hypertension. We will consider pressor support if ionotropic support not sufficed to stabilize blood pressure. I suspect that right ventricular failure is the driving force behind systemic hypotension and respiratory failure as well. We will continue with deep venous thrombosis and gastrointestinal prophylaxis. Addendum: patient tolerates dobutrex 5 mcg/kg/min well. Off of BPAP, mentating well, will repeat ABG ccm time 40 min Adi Stephens MD [facility]SD[facility]
[2017-12-16] MEDS: Albuterol-Ipratrop 3 mg / 0.5 (3 ml) UD IH SCH ×4 (12:54→23:00)
--- NOTE | 2017-12-16 13:29 | PN ---
DATE: 12/16/2017 SUBJECTIVE: The patient is currently seen in CCU, bed 6. She was hypotensive in the morning. She was started on Dobutrex and systolic blood pressures are now in the low 100s. She is responsive to her family's questioning in [place]. She is squeezing my hand. She appears to be back to her baseline. The patient had 1.5 liters of fluid removed with yesterday's dialysis. She does not require dialysis today. Her chest x-ray from the morning showed diminished right pleural effusion, linear atelectasis of the left lung. No acute infiltrate and no left pleural effusion or pneumothorax seen. The patient had a triple-lumen catheter placed in her right groin. Unable to place a PICC line. MEDICATIONS: Medication list reviewed. The patient is currently on acetylcysteine inhalation therapy, Anusol, Benadryl, Brovana is on hold, Claritin, Dobutrex, Dulcolax, DuoNeb, subcu heparin, insulin, Lopressor on hold, ProAmatine, Protonix, Pulmicort, Renagel, Singulair, Solu-Medrol and vitamin A. OBJECTIVE: INTAKE/OUTPUT: Intake is 100 plus, output is 1500 mL with dialysis. VITAL SIGNS: Blood pressure presently is 120/57, heart rate is 84, temperature is 97.2, respiratory rate is 20 on BiPAP. NECK: Supple. No neck vein distention. HEENT: Shows her to be normocephalic, atraumatic. Conjunctivae remain pink. Sclerae nonicteric. CHEST: Clear to auscultation and percussion with decreased breath sounds at the bases. No rales, rhonchi or wheezing. CARDIOVASCULAR: Shows a regular rate and rhythm with MR/TR. No S3, no S4, no rub. ABDOMEN: Mildly obese. Mild distention. Soft, nontender. Bowel sounds normal. No rebound, guarding or masses. EXTREMITIES: Show no lower extremity pitting edema. She does have puffiness over her right upper extremity, nonpitting. She has a right chest wall PermCath. She has a right groin triple-lumen catheter. NEUROLOGIC: Shows her to be alert and oriented. She responds to verbal communication from her family in [place]. LABORATORY DATA AND IMAGING: CBC: White blood cell count today 6.8, hemoglobin excellent at 12.8, platelet count is 129,000. Blood gas today, pH 7.27, pCO2 of 51 with a pO2 of 101. Chemistries: Potassium 3.5. Electrolytes otherwise normal. BUN 53 with a creatinine of 4.1. Glucose is 146. Calcium, phosphorus, magnesium level all normal. Albumin level is low at 3. Microbiology: All cultures are negative. Chest x-ray from today report as noted above. ASSESSMENT: 1. Status post return back to the CCU for hypotension and altered mental status post dialysis. The patient did not respond adequately to oral ProAmatine. With the start of Dobutrex, the patient's blood pressure is significantly improved. 2. Possible right lower lobe pneumonia with exacerbation of her asthma. The patient remains on steroid therapy. She remains on inhalation therapy. The patient is currently off antibiotic therapy. 3. History of end-stage renal disease. As discussed with the acute care dialysis nurse, no dialysis is necessary. Her volume status appears to be intact. Her pulse ox are excellent and her chest exam is improved. She will receive her routine dialysis tomorrow, Friday, Friday, Friday with the removal of 1.5 to 2 liters as tolerated. 4. History of atherosclerotic heart disease status post percutaneous transluminal coronary angioplasty and stent, history of cardiomyopathy with mitral regurgitation, tricuspid regurgitation. According to the medical record, the patient had a repeat echocardiogram done at [facility] which showed an ejection fraction of 30%. Of note, echocardiogram done on 12/10/2017 at [facility] showed an ejection fraction of 50%. The patient was initially being evaluated for an automatic implantable cardioverter-defibrillator. Instead, she had a LifeVest placed by Cardiology at [facility]. 5. History of anemia. Hemoglobin is excellent. No Aranesp necessary. 6. History of secondary hyperparathyroidism. Calcium, phosphorus levels are normal. The patient continues a renal diet along with binder therapy. 7. Hypotension. Continue to support blood pressure with Dobutrex. The patient will continue on ProAmatine. PLAN: 1. Discussed with CCU staff, discussed with family, discussed with the patient, discussed with hemodialysis nurse. The patient will remain in the CCU today receiving ionotropic support. She will receive her dialysis tomorrow in the CCU. We will target 1.5 to 2 liters off. The patient's volume status appears to have improved. 2. Await report of Doppler study of her right upper extremity which is edematous. 3. Continue inhalation therapy and BiPAP as necessary. 4. Close Pulmonary followup. 5. Greater than 35 minutes spent in the care of this patient. Nishant Mack MD
--- NOTE | 2017-12-16 13:48 | CP.CCUPN ---
<Ryder Alamo - Last Filed: 12/16/17 14:50> CCU Subjective - Physician Review Subjective (Free Text): CRITICAL CARE PROGRESS NOTE FOR DR. MARTIN Alamo PGY-1 Pt seen and examined at bedside this am. No acute nursing events overnight. She is awake, AxO x 3, however appears confused. She underwent femoral central IV access. She denies 12 point ROS. CCU Objective - Vital Signs / Intake & Output Vital Signs (Last 4 hours): Vital Signs Pulse BP 12/16/17 10:30 83 120/50 L Intake and Output (Last 8hrs): Intake & Output 12/15/17 12/16/17 12/16/17 22:59 06:59 14:59 Intake Total 100 0 Output Total 1500 0 Balance -1400 0 Weight 163 lb 163 lb Intake: Oral 100 0 Output: Urine 0 Urine, Voided 0 Stool 0 Emesis 0 Other 1500 - Physical Exam Head: Positive for: Atraumatic, Normocephalic Pupils: Positive for: PERRL Extroacular Muscles: Positive for: EOMI Conjunctiva: Positive for: Normal Mouth: Positive for: Moist Mucous Membranes Neck: Positive for: Normal Range of Motion Respiratory/Chest: Positive for: Wheezes. Negative for: Respiratory Distress, Accessory Muscle Use Cardiovascular: Positive for: Regular Rate and Rhythm, Normal S1, S2. Negative for: Murmurs Abdomen: Positive for: Distention. Negative for: Tenderness, Peritoneal Signs, Rebound Back: Positive for: Normal Inspection Upper Extremity: Positive for: Normal Inspection. Negative for: Cyanosis, Edema Lower Extremity: Positive for: Normal Inspection. Negative for: Edema Neurological: Positive for: GCS=15, CN II-XII Intact, Speech Normal Skin: Positive for: Warm, Dry, Normal Color. Negative for: Rashes Psychiatric: Positive for: Alert, Oriented x 3, Normal Insight, Normal Concentration - Medications Active Medications: Active Medications Generic Name Dose Route Start Last Admin Trade Name Freq PRN Reason Stop Dose Admin Acetylcysteine 4 ml 12/13/17 22:22 12/16/17 08:00 Acetylcysteine 20% IH 4 ml 0800,2000 AUGUSTIN Administration Albuterol/Ipratropium 3 ml 12/08/17 14:37 12/13/17 04:44 Duoneb 3 Mg/0.5 Mg (3 Ml) Ud IH 3 ml Q2H PRN Administration Shortness of Breath Albuterol/Ipratropium 3 ml 12/16/17 11:30 12/16/17 12:54 Duoneb 3 Mg/0.5 Mg (3 Ml) Ud IH 3 ml [id number] AUGUSTIN Administration Arformoterol Tartrate 15 mcg 12/12/17 08:00 12/16/17 08:00 Brovana IH 15 mcg [id number] AUGUSTIN Administration Bisacodyl 10 mg 12/10/17 10:00 12/15/17 13:47 Dulcolax RC Not Given DAILY AUGUSTIN Budesonide 0.5 mg 12/12/17 08:00 12/16/17 08:00 Pulmicort Respules IH 0.5 mg [id number] AUGUSTIN Administration Diphenhydramine HCl 25 mg 12/11/17 15:33 12/15/17 01:12 Benadryl PO 25 mg Q8 PRN Administration Itching / Pruritus Heparin Sodium (Porcine) 5,000 units 12/08/17 22:00 12/16/17 11:06 Heparin SC 5,000 units Q12 AUGUSTIN Administration Protocol Hydrocortisone 0 gm 12/13/17 18:15 12/15/17 17:55 Anusol-Hc NJ 1 cre BID AUGUSTIN Administration Dobutamine HCl/Dextrose 500 mg in 250 mls @ 11.09 mls/hr 12/16/17 08:58 12/16/17 10:30 Dobutamine/Dextrose 5% 500mg/250ml IV 5 mcg/kg/min .[id number] PRN 11.09 mls/hr TITRATE PER PROTOCOL Administration Protocol 5 MCG/KG/MIN Insulin Human Regular 0 units 12/12/17 11:30 12/16/17 11:08 Humulin R High SC Not Given ACHS [facility] Protocol Loratadine 10 mg 12/13/17 10:00 12/16/17 11:05 Claritin PO 10 mg DAILY AUGUSTIN Administration Methylprednisolone 20 mg 12/15/17 10:00 12/16/17 11:07 Solu-Medrol IVP 20 mg DAILY AUGUSTIN Administration Metoprolol Tartrate 25 mg 12/08/17 18:00 12/15/17 17:54 Lopressor PO Not Given BID AUGUSTIN Midodrine 10 mg 12/16/17 10:00 10/30/18 11:06 Proamatine PO 10 mg TID AUGUSTIN Administration Montelukast Sodium 10 mg 12/12/17 22:00 12/15/17 23:41 Singulair PO 10 mg HS AUGUSTIN Administration Pantoprazole Sodium 40 mg 12/12/17 07:30 12/16/17 11:06 Protonix Ec Tab PO 40 mg ACB AUGUSTIN Administration Sevelamer HCl 1,600 mg 12/09/17 14:00 12/16/17 11:09 Renagel PO Not Given TID AUGUSTIN Vitamin A 1 ea 12/15/17 17:50 Vitamin A & D Oint Ud Foilpak TOP Q4H PRN dry mouth area - Patient Studies Lab Studies: Lab Studies 12/16/17 12/16/17 12/16/17 Range/Units 09:25 07:16 05:40 WBC (4.5-11.0) 10^3/uL RBC (3.5-6.1) 10^6/uL Hgb (12.0-16.0) g/dL Hct (36.0-48.0) % MCV (80.0-105.0) fl MCH (25.0-35.0) pg MCHC (31.0-37.0) g/dl RDW (11.5-14.5) % Plt Count (120.0-450.0) 10^3/uL MPV (7.0-11.0) fl Gran % (50.0-68.0) % Lymph % (Auto) (22.0-35.0) % [place] % (Auto) (1.0-6.0) % Eos % (Auto) (1.5-5.0) % Baso % (Auto) (0.0-3.0) % Gran # (1.4-6.5) Lymph # (Auto) (1.2-3.4) [place] # (Auto) (0.1-0.6) Eos # (Auto) (0.0-0.7) Baso # (Auto) (0.0-2.0) K/mm3 pCO2 51 H (35-45) mm/Hg pO2 101.0 H (30-55) mm/Hg HCO3 23.4 (21-28) mmol/L ABG pH 7.27 L (7.35-7.45) ABG Total CO2 25.0 (22-28) mmol.L ABG O2 Saturation 98.7 H (95-98) % ABG Base Excess -4.0 L (-2.0-3.0) mmol/L ABG Potassium 3.3 L (3.6-5.2) mmol/L VBG pH (7.32-7.43) VBG pCO2 (40-60) VBG HCO3 (21-28) mmol/l VBG Total CO2 (22-28) mmol.L VBG O2 Sat (Calc) (40-65) % VBG Base Excess (0.0-2.0) mmol/L VBG Potassium (3.6-5.2) mmol/L Sodium 132.0 135 (132-148) mmol/L Chloride 98.0 100 (98-107) mmol/L Glucose 123 H (65-105) mg/dl Lactate 1.1 (0.7-2.1) mmol/L FiO2 40.0 % Potassium 3.5 L (3.6-5.0) mmol/L Carbon Dioxide 24 (21-33) mmol/L Anion Gap 15 (10-20) BUN 53 H (7-21) mg/dL Creatinine 4.1 H (0.7-1.2) mg/dl Est GFR ( Amer) 13 Est GFR (Non-Af Amer) 11 POC Glucose (mg/dL) 119 H (65-110) mg/dL Random Glucose 146 H (70-110) mg/dL Calcium 8.8 (8.4-10.5) mg/dL Phosphorus 3.9 (2.5-4.5) mg/dL Magnesium 2.0 (1.7-2.2) mg/dL Total Bilirubin 0.7 (0.2-1.3) mg/dL AST 15 (14-36) U/L ALT 22 (7-56) U/L Alkaline Phosphatase 129 H (38-126) U/L Total Protein 6.5 (5.8-8.3) g/dL Albumin 3.0 (3.0-4.8) g/dL Globulin 3.5 gm/dL Albumin/Globulin Ratio 0.9 L (1.1-1.8) Arterial Blood Potassium 3.3 L (3.6-5.2) mmol/L Venous Blood Potassium (3.6-5.2) mmol/L 12/16/17 12/15/17 12/15/17 Range/Units 05:40 21:30 20:30 WBC 6.8 D (4.5-11.0) 10^3/uL RBC 3.57 (3.5-6.1) 10^6/uL Hgb 12.8 (12.0-16.0) g/dL Hct 42.1 (36.0-48.0) % MCV 117.9 H (80.0-105.0) fl MCH 35.9 H (25.0-35.0) pg MCHC 30.4 L (31.0-37.0) g/dl RDW 17.4 H (11.5-14.5) % Plt Count 129 (120.0-450.0) 10^3/uL MPV 11.4 H (7.0-11.0) fl Gran % 68.0 (50.0-68.0) % Lymph % (Auto) 19.7 L (22.0-35.0) % [place] % (Auto) 9.8 H (1.0-6.0) % Eos % (Auto) 2.5 (1.5-5.0) % Baso % (Auto) 0.0 (0.0-3.0) % Gran # 4.59 (1.4-6.5) Lymph # (Auto) 1.3 (1.2-3.4) [place] # (Auto) 0.7 H (0.1-0.6) Eos # (Auto) 0.2 (0.0-0.7) Baso # (Auto) 0.00 (0.0-2.0) K/mm3 pCO2 (35-45) mm/Hg pO2 193 H (30-55) mm/Hg HCO3 (21-28) mmol/L ABG pH (7.35-7.45) ABG Total CO2 (22-28) mmol.L ABG O2 Saturation (95-98) % ABG Base Excess (-2.0-3.0) mmol/L ABG Potassium (3.6-5.2) mmol/L VBG pH 7.25 L (7.32-7.43) VBG pCO2 56.0 (40-60) VBG HCO3 24.6 (21-28) mmol/l VBG Total CO2 26.3 (22-28) mmol.L VBG O2 Sat (Calc) 99.3 H (40-65) % VBG Base Excess -3.5 L (0.0-2.0) mmol/L VBG Potassium 4.0 (3.6-5.2) mmol/L Sodium 124.0 L (132-148) mmol/L Chloride 97.0 L (98-107) mmol/L Glucose 244 H (65-105) mg/dl Lactate 1.8 (0.7-2.1) mmol/L FiO2 21.0 % Potassium (3.6-5.0) mmol/L Carbon Dioxide (21-33) mmol/L Anion Gap (10-20) BUN (7-21) mg/dL Creatinine (0.7-1.2) mg/dl Est GFR ( Amer) Est GFR (Non-Af Amer) POC Glucose (mg/dL) 252 H (65-110) mg/dL Random Glucose (70-110) mg/dL Calcium (8.4-10.5) mg/dL Phosphorus (2.5-4.5) mg/dL Magnesium (1.7-2.2) mg/dL Total Bilirubin (0.2-1.3) mg/dL AST (14-36) U/L ALT (7-56) U/L Alkaline Phosphatase (38-126) U/L Total Protein (5.8-8.3) g/dL Albumin (3.0-4.8) g/dL Globulin gm/dL Albumin/Globulin Ratio (1.1-1.8) Arterial Blood Potassium (3.6-5.2) mmol/L Venous Blood Potassium 4.0 (3.6-5.2) mmol/L 12/15/17 12/15/17 Range/Units 17:56 11:35 WBC (4.5-11.0) 10^3/uL RBC (3.5-6.1) 10^6/uL Hgb (12.0-16.0) g/dL Hct (36.0-48.0) % MCV (80.0-105.0) fl MCH (25.0-35.0) pg MCHC (31.0-37.0) g/dl RDW (11.5-14.5) % Plt Count (120.0-450.0) 10^3/uL MPV (7.0-11.0) fl Gran % (50.0-68.0) % Lymph % (Auto) (22.0-35.0) % [place] % (Auto) (1.0-6.0) % Eos % (Auto) (1.5-5.0) % Baso % (Auto) (0.0-3.0) % Gran # (1.4-6.5) Lymph # (Auto) (1.2-3.4) [place] # (Auto) (0.1-0.6) Eos # (Auto) (0.0-0.7) Baso # (Auto) (0.0-2.0) K/mm3 pCO2 (35-45) mm/Hg pO2 (30-55) mm/Hg HCO3 (21-28) mmol/L ABG pH (7.35-7.45) ABG Total CO2 (22-28) mmol.L ABG O2 Saturation (95-98) % ABG Base Excess (-2.0-3.0) mmol/L ABG Potassium (3.6-5.2) mmol/L VBG pH (7.32-7.43) VBG pCO2 (40-60) VBG HCO3 (21-28) mmol/l VBG Total CO2 (22-28) mmol.L VBG O2 Sat (Calc) (40-65) % VBG Base Excess (0.0-2.0) mmol/L VBG Potassium (3.6-5.2) mmol/L Sodium (132-148) mmol/L Chloride (98-107) mmol/L Glucose (65-105) mg/dl Lactate (0.7-2.1) mmol/L FiO2 % Potassium (3.6-5.0) mmol/L Carbon Dioxide (21-33) mmol/L Anion Gap (10-20) BUN (7-21) mg/dL Creatinine (0.7-1.2) mg/dl Est GFR ( Amer) Est GFR (Non-Af Amer) POC Glucose (mg/dL) 219 H 162 H (65-110) mg/dL Random Glucose (70-110) mg/dL Calcium (8.4-10.5) mg/dL Phosphorus (2.5-4.5) mg/dL Magnesium (1.7-2.2) mg/dL Total Bilirubin (0.2-1.3) mg/dL AST (14-36) U/L ALT (7-56) U/L Alkaline Phosphatase (38-126) U/L Total Protein (5.8-8.3) g/dL Albumin (3.0-4.8) g/dL Globulin gm/dL Albumin/Globulin Ratio (1.1-1.8) Arterial Blood Potassium (3.6-5.2) mmol/L Venous Blood Potassium (3.6-5.2) mmol/L Laboratory Results - last 24 hr 12/15/17 12/15/17 12/15/17 11:35 17:56 20:30 WBC RBC Hgb Hct MCV MCH MCHC RDW Plt Count MPV Gran % Lymph % (Auto) [place] % (Auto) Eos % (Auto) Baso % (Auto) Gran # Lymph # (Auto) [place] # (Auto) Eos # (Auto) Baso # (Auto) pCO2 pO2 193 H HCO3 ABG pH ABG Total CO2 ABG O2 Saturation ABG Base Excess ABG Potassium VBG pH 7.25 L VBG pCO2 56.0 VBG HCO3 24.6 VBG Total CO2 26.3 VBG O2 Sat (Calc) 99.3 H VBG Base Excess -3.5 L VBG Potassium 4.0 Sodium 124.0 L Chloride 97.0 L Glucose 244 H Lactate 1.8 FiO2 21.0 Potassium Carbon Dioxide Anion Gap BUN Creatinine Est GFR ( Amer) Est GFR (Non-Af Amer) POC Glucose (mg/dL) 162 H 219 H Random Glucose Calcium Phosphorus Magnesium Total Bilirubin AST ALT Alkaline Phosphatase Total Protein Albumin Globulin Albumin/Globulin Ratio Arterial Blood Potassium Venous Blood Potassium 4.0 12/15/17 12/16/17 12/16/17 21:30 05:40 05:40 WBC 6.8 D RBC 3.57 Hgb 12.8 Hct 42.1 MCV 117.9 H MCH 35.9 H MCHC 30.4 L RDW 17.4 H Plt Count 129 MPV 11.4 H Gran % 68.0 Lymph % (Auto) 19.7 L [place] % (Auto) 9.8 H Eos % (Auto) 2.5 Baso % (Auto) 0.0 Gran # 4.59 Lymph # (Auto) 1.3 [place] # (Auto) 0.7 H Eos # (Auto) 0.2 Baso # (Auto) 0.00 pCO2 pO2 HCO3 ABG pH ABG Total CO2 ABG O2 Saturation ABG Base Excess ABG Potassium VBG pH VBG pCO2 VBG HCO3 VBG Total CO2 VBG O2 Sat (Calc) VBG Base Excess VBG Potassium Sodium 135 Chloride 100 Glucose Lactate FiO2 Potassium 3.5 L Carbon Dioxide 24 Anion Gap 15 BUN 53 H Creatinine 4.1 H Est GFR ( Amer) 13 Est GFR (Non-Af Amer) 11 POC Glucose (mg/dL) 252 H Random Glucose 146 H Calcium 8.8 Phosphorus 3.9 Magnesium 2.0 Total Bilirubin 0.7 AST 15 ALT 22 Alkaline Phosphatase 129 H Total Protein 6.5 Albumin 3.0 Globulin 3.5 Albumin/Globulin Ratio 0.9 L Arterial Blood Potassium Venous Blood Potassium 12/16/17 12/16/17 07:16 09:25 WBC RBC Hgb Hct MCV MCH MCHC RDW Plt Count MPV Gran % Lymph % (Auto) [place] % (Auto) Eos % (Auto) Baso % (Auto) Gran # Lymph # (Auto) [place] # (Auto) Eos # (Auto) Baso # (Auto) pCO2 51 H pO2 101.0 H HCO3 23.4 ABG pH 7.27 L ABG Total CO2 25.0 ABG O2 Saturation 98.7 H ABG Base Excess -4.0 L ABG Potassium 3.3 L VBG pH VBG pCO2 VBG HCO3 VBG Total CO2 VBG O2 Sat (Calc) VBG Base Excess VBG Potassium Sodium 132.0 Chloride 98.0 Glucose 123 H Lactate 1.1 FiO2 40.0 Potassium Carbon Dioxide Anion Gap BUN Creatinine Est GFR ( Amer) Est GFR (Non-Af Amer) POC Glucose (mg/dL) 119 H Random Glucose Calcium Phosphorus Magnesium Total Bilirubin AST ALT Alkaline Phosphatase Total Protein Albumin Globulin Albumin/Globulin Ratio Arterial Blood Potassium 3.3 L Venous Blood Potassium Fingerstick Blood Sugar Results: 119 Critical Care Progress Note - Nutrition Nutrition: Nutrition Category Date Time Status Renal Diet [DIET] Diets 12/09/17 Lunch Ordered Assessment/Plan - Assessment and Plan (Free Text) Assessment: 72 y/o F with PMHx of ESRD on HD, CAD s/p stent with lifevest(pending AICD), DM, HTN presented to [facility] admitted to ICU for hypotension on medicine floors. Pt presenting with hypercapnic respiratory acidosis. Pt treated with BiPAP in the setting of pulmonary HTN secondary to COPD vs LV diastolic dysfunction. Plan: Neuro: Awake, alert & oriented x 3. Hospital delirium vs dementia Pt answering questions, responsive, however confused ABG today Neuro consult: Dr. Hensley GCS [address] Head: generalized atrophy. correlate for mastoiditis MRI: pt has pacemaker Cardio: Shock resolved, probably sepsis but no source found. Likely cardiogenic from renal failure Femoral central access Pt to be started on dobutamine for inotropic support of RV Midodrine for BP support LEANN/RACHEL may potentially improve cardiac function by improving LV EDV Will consider pressor support if inotropic support doesnt stabilize BP D/c beta blockers Maintain MAP >65 Conservative fluid management by HD Echo (12/10/17): LVEF 50-55%. Flattened septum consistent with RV volume and pressure overload. RV is severely dilated. Systolic function of RV is severely reduced. RVSP - 34, underestimated d/t TR jet. Pulm: Hypercapnic respiratory failure 7.27/51/101/24 Lactate: 1.1 Pt maintaining her own airway Repeat ABG Duoneb treatments q2H prn Acetylcysteine Duoneb q2hprn Aformoterol Budesonide Loratadine Solu-medrol 20mg IVP montelukast Maintain 02 sat >90% HOB 30 degrees GI: Distended Continue with protonix for GI ppx /Renal: ESRD on HD MWF per nephrology team BUN/Cr below baseline Conservative fluid management Maintain euvolemia Continue to monitor Per Nephro, pt can be transferred to floors Endocrine: Hx of DM Maintain euglycemia Fingersticks q6h ISS-High Heme: Macrocytic anemia at baseline platelets stable continue to monitor ID Completed course of aztreonam Single dose of vancomycin/gentamicin completed this hospitalization Panculture negative Will consider cefepime despite penicillin if condition worsens Stage 2 sacral ulcer: followed by wound care DVT/GI PPx: Hep/Protonix Code Status: Full code. Will discuss with family regarding advanced directives Dispo: Monitor closely in MICU <Adi Stephens - Last Filed: 12/16/17 15:47> CCU Objective - Vital Signs / Intake & Output Vital Signs (Last 4 hours): Vital Signs Pulse Resp BP Pulse Ox 12/16/17 15:01 96 H 18 117/47 L 95 12/16/17 14:27 96 H 10 L 93/54 L 91 L 12/16/17 14:01 85 79/56 L 82 L 12/16/17 14:00 94 H 86 L 12/16/17 13:00 101 H 25 H 98/51 L 92 L 12/16/17 12:00 91 H 6 L 118/43 L 97 Intake and Output (Last 8hrs): Intake & Output 12/16/17 12/16/17 12/16/17 06:59 14:59 22:59 Intake Total 0 Output Total 0 Balance 0 Weight 163 lb 163 lb Intake: Oral 0 Output: Urine 0 Urine, Voided 0 Stool 0 Emesis 0 - Medications Active Medications: Active Medications Generic Name Dose Route Start Last Admin Trade Name Freq PRN Reason Stop Dose Admin Acetylcysteine 4 ml 12/13/17 22:22 12/16/17 08:00 Acetylcysteine 20% IH 4 ml 08,1999 AUGUSTIN Administration Albuterol/Ipratropium 3 ml 12/08/17 14:37 12/13/17 04:44 Duoneb 3 Mg/0.5 Mg (3 Ml) Ud IH 3 ml Q2H PRN Administration Shortness of Breath Albuterol/Ipratropium 3 ml 12/16/17 11:30 12/16/17 12:54 Duoneb 3 Mg/0.5 Mg (3 Ml) Ud IH 3 ml [id number] AUGUSTIN Administration Arformoterol Tartrate 15 mcg 12/12/17 08:00 12/16/17 08:00 Brovana IH 15 mcg [id number] AUGUSTIN Administration Bisacodyl 10 mg 12/10/17 10:00 12/15/17 13:47 Dulcolax RC Not Given DAILY AUGUSTIN Budesonide 0.5 mg 12/12/17 08:00 12/16/17 08:00 Pulmicort Respules IH 0.5 mg [id number] AUGUSTIN Administration Diphenhydramine HCl 25 mg 12/11/17 15:33 12/15/17 01:12 Benadryl PO 25 mg Q8 PRN Administration Itching / Pruritus Heparin Sodium (Porcine) 5,000 units 12/08/17 22:00 12/16/17 11:06 Heparin SC 5,000 units Q12 AUGUSTIN Administration Protocol Hydrocortisone 0 gm 12/13/17 18:15 12/15/17 17:55 Anusol-Hc NJ 1 cre BID AUGUSTIN Administration Dobutamine HCl/Dextrose 500 mg in 250 mls @ 11.09 mls/hr 12/16/17 08:58 12/16/17 10:30 Dobutamine/Dextrose 5% 500mg/250ml IV 5 mcg/kg/min .[id number] PRN 11.09 mls/hr TITRATE PER PROTOCOL Administration Protocol 5 MCG/KG/MIN Insulin Human Regular 0 units 12/12/17 11:30 12/16/17 11:08 Humulin R High SC Not Given ACHS AUGUSTIN Protocol Lidocaine HCl 0 ea 12/16/17 18:00 Xylocaine 2% TOP BID AUGUSTIN Loratadine 10 mg 12/13/17 10:00 12/16/17 11:05 Claritin PO 10 mg DAILY AUGUSTIN Administration Methylprednisolone 20 mg 12/15/17 10:00 12/16/17 11:07 Solu-Medrol IVP 20 mg DAILY AUGUSTIN Administration Metoprolol Tartrate 25 mg 12/08/17 18:00 12/15/17 17:54 Lopressor PO Not Given BID AUGUSTIN Midodrine 10 mg 12/16/17 10:00 12/16/17 15:39 Proamatine PO 10 mg TID AUGUSTIN Administration Montelukast Sodium 10 mg 12/12/17 22:00 12/15/17 23:41 Singulair PO 10 mg HS AUGUSTIN Administration Nystatin 1 gm 12/16/17 18:00 12/16/17 15:37 Nystop Topical Powder TOP 1 applic BID AUGUSTIN Administration Pantoprazole Sodium 40 mg 12/12/17 07:30 12/16/17 11:06 Protonix Ec Tab PO 40 mg ACB AUGUSTIN Administration Sevelamer HCl 1,600 mg 12/09/17 14:00 12/16/17 15:38 Renagel PO 1,600 mg TID AUGUSTIN Administration Vitamin A 1 ea 12/15/17 17:50 Vitamin A & D Oint Ud Foilpak TOP Q4H PRN dry mouth area - Patient Studies Lab Studies: Lab Studies 12/16/17 12/16/17 12/16/17 Range/Units 09:25 07:16 05:40 WBC (4.5-11.0) 10^3/uL RBC (3.5-6.1) 10^6/uL Hgb (12.0-16.0) g/dL Hct (36.0-48.0) % MCV (80.0-105.0) fl MCH (25.0-35.0) pg MCHC (31.0-37.0) g/dl RDW (11.5-14.5) % Plt Count (120.0-450.0) 10^3/uL MPV (7.0-11.0) fl Gran % (50.0-68.0) % Lymph % (Auto) (22.0-35.0) % [place] % (Auto) (1.0-6.0) % Eos % (Auto) (1.5-5.0) % Baso % (Auto) (0.0-3.0) % Gran # (1.4-6.5) Lymph # (Auto) (1.2-3.4) [place] # (Auto) (0.1-0.6) Eos # (Auto) (0.0-0.7) Baso # (Auto) (0.0-2.0) K/mm3 pCO2 51 H (35-45) mm/Hg pO2 101.0 H (30-55) mm/Hg HCO3 23.4 (21-28) mmol/L ABG pH 7.27 L (7.35-7.45) ABG Total CO2 25.0 (22-28) mmol.L ABG O2 Saturation 98.7 H (95-98) % ABG Base Excess -4.0 L (-2.0-3.0) mmol/L ABG Potassium 3.3 L (3.6-5.2) mmol/L VBG pH (7.32-7.43) VBG pCO2 (40-60) VBG HCO3 (21-28) mmol/l VBG Total CO2 (22-28) mmol.L VBG O2 Sat (Calc) (40-65) % VBG Base Excess (0.0-2.0) mmol/L VBG Potassium (3.6-5.2) mmol/L Sodium 132.0 135 (132-148) mmol/L Chloride 98.0 100 (98-107) mmol/L Glucose 123 H (65-105) mg/dl Lactate 1.1 (0.7-2.1) mmol/L FiO2 40.0 % Potassium 3.5 L (3.6-5.0) mmol/L Carbon Dioxide 24 (21-33) mmol/L Anion Gap 15 (10-20) BUN 53 H (7-21) mg/dL Creatinine 4.1 H (0.7-1.2) mg/dl Est GFR ( Amer) 13 Est GFR (Non-Af Amer) 11 POC Glucose (mg/dL) 119 H (65-110) mg/dL Random Glucose 146 H (70-110) mg/dL Calcium 8.8 (8.4-10.5) mg/dL Phosphorus 3.9 (2.5-4.5) mg/dL Magnesium 2.0 (1.7-2.2) mg/dL Total Bilirubin 0.7 (0.2-1.3) mg/dL AST 15 (14-36) U/L ALT 22 (7-56) U/L Alkaline Phosphatase 129 H (38-126) U/L Total Protein 6.5 (5.8-8.3) g/dL Albumin 3.0 (3.0-4.8) g/dL Globulin 3.5 gm/dL Albumin/Globulin Ratio 0.9 L (1.1-1.8) Arterial Blood Potassium 3.3 L (3.6-5.2) mmol/L Venous Blood Potassium (3.6-5.2) mmol/L 12/16/17 12/15/17 12/15/17 Range/Units 05:40 21:30 20:30 WBC 6.8 D (4.5-11.0) 10^3/uL RBC 3.57 (3.5-6.1) 10^6/uL Hgb 12.8 (12.0-16.0) g/dL Hct 42.1 (36.0-48.0) % MCV 117.9 H (80.0-105.0) fl MCH 35.9 H (25.0-35.0) pg MCHC 30.4 L (31.0-37.0) g/dl RDW 17.4 H (11.5-14.5) % Plt Count 129 (120.0-450.0) 10^3/uL MPV 11.4 H (7.0-11.0) fl Gran % 68.0 (50.0-68.0) % Lymph % (Auto) 19.7 L (22.0-35.0) % [place] % (Auto) 9.8 H (1.0-6.0) % Eos % (Auto) 2.5 (1.5-5.0) % Baso % (Auto) 0.0 (0.0-3.0) % Gran # 4.59 (1.4-6.5) Lymph # (Auto) 1.3 (1.2-3.4) [place] # (Auto) 0.7 H (0.1-0.6) Eos # (Auto) 0.2 (0.0-0.7) Baso # (Auto) 0.00 (0.0-2.0) K/mm3 pCO2 (35-45) mm/Hg pO2 193 H (30-55) mm/Hg HCO3 (21-28) mmol/L ABG pH (7.35-7.45) ABG Total CO2 (22-28) mmol.L ABG O2 Saturation (95-98) % ABG Base Excess (-2.0-3.0) mmol/L ABG Potassium (3.6-5.2) mmol/L VBG pH 7.25 L (7.32-7.43) VBG pCO2 56.0 (40-60) VBG HCO3 24.6 (21-28) mmol/l VBG Total CO2 26.3 (22-28) mmol.L VBG O2 Sat (Calc) 99.3 H (40-65) % VBG Base Excess -3.5 L (0.0-2.0) mmol/L VBG Potassium 4.0 (3.6-5.2) mmol/L Sodium 124.0 L (132-148) mmol/L Chloride 97.0 L (98-107) mmol/L Glucose 244 H (65-105) mg/dl Lactate 1.8 (0.7-2.1) mmol/L FiO2 21.0 % Potassium (3.6-5.0) mmol/L Carbon Dioxide (21-33) mmol/L Anion Gap (10-20) BUN (7-21) mg/dL Creatinine (0.7-1.2) mg/dl Est GFR ( Amer) Est GFR (Non-Af Amer) POC Glucose (mg/dL) 252 H (65-110) mg/dL Random Glucose (70-110) mg/dL Calcium (8.4-10.5) mg/dL Phosphorus (2.5-4.5) mg/dL Magnesium (1.7-2.2) mg/dL Total Bilirubin (0.2-1.3) mg/dL AST (14-36) U/L ALT (7-56) U/L Alkaline Phosphatase (38-126) U/L Total Protein (5.8-8.3) g/dL Albumin (3.0-4.8) g/dL Globulin gm/dL Albumin/Globulin Ratio (1.1-1.8) Arterial Blood Potassium (3.6-5.2) mmol/L Venous Blood Potassium 4.0 (3.6-5.2) mmol/L 12/15/17 12/15/17 Range/Units 17:56 11:35 WBC (4.5-11.0) 10^3/uL RBC (3.5-6.1) 10^6/uL Hgb (12.0-16.0) g/dL Hct (36.0-48.0) % MCV (80.0-105.0) fl MCH (25.0-35.0) pg MCHC (31.0-37.0) g/dl RDW (11.5-14.5) % Plt Count (120.0-450.0) 10^3/uL MPV (7.0-11.0) fl Gran % (50.0-68.0) % Lymph % (Auto) (22.0-35.0) % [place] % (Auto) (1.0-6.0) % Eos % (Auto) (1.5-5.0) % Baso % (Auto) (0.0-3.0) % Gran # (1.4-6.5) Lymph # (Auto) (1.2-3.4) [place] # (Auto) (0.1-0.6) Eos # (Auto) (0.0-0.7) Baso # (Auto) (0.0-2.0) K/mm3 pCO2 (35-45) mm/Hg pO2 (30-55) mm/Hg HCO3 (21-28) mmol/L ABG pH (7.35-7.45) ABG Total CO2 (22-28) mmol.L ABG O2 Saturation (95-98) % ABG Base Excess (-2.0-3.0) mmol/L ABG Potassium (3.6-5.2) mmol/L VBG pH (7.32-7.43) VBG pCO2 (40-60) VBG HCO3 (21-28) mmol/l VBG Total CO2 (22-28) mmol.L VBG O2 Sat (Calc) (40-65) % VBG Base Excess (0.0-2.0) mmol/L VBG Potassium (3.6-5.2) mmol/L Sodium (132-148) mmol/L Chloride (98-107) mmol/L Glucose (65-105) mg/dl Lactate (0.7-2.1) mmol/L FiO2 % Potassium (3.6-5.0) mmol/L Carbon Dioxide (21-33) mmol/L Anion Gap (10-20) BUN (7-21) mg/dL Creatinine (0.7-1.2) mg/dl Est GFR ( Amer) Est GFR (Non-Af Amer) POC Glucose (mg/dL) 219 H 162 H (65-110) mg/dL Random Glucose (70-110) mg/dL Calcium (8.4-10.5) mg/dL Phosphorus (2.5-4.5) mg/dL Magnesium (1.7-2.2) mg/dL Total Bilirubin (0.2-1.3) mg/dL AST (14-36) U/L ALT (7-56) U/L Alkaline Phosphatase (38-126) U/L Total Protein (5.8-8.3) g/dL Albumin (3.0-4.8) g/dL Globulin gm/dL Albumin/Globulin Ratio (1.1-1.8) Arterial Blood Potassium (3.6-5.2) mmol/L Venous Blood Potassium (3.6-5.2) mmol/L Laboratory Results - last 24 hr 12/15/17 12/15/17 12/15/17 11:35 17:56 20:30 WBC RBC Hgb Hct MCV MCH MCHC RDW Plt Count MPV Gran % Lymph % (Auto) [place] % (Auto) Eos % (Auto) Baso % (Auto) Gran # Lymph # (Auto) [place] # (Auto) Eos # (Auto) Baso # (Auto) pCO2 pO2 193 H HCO3 ABG pH ABG Total CO2 ABG O2 Saturation ABG Base Excess ABG Potassium VBG pH 7.25 L VBG pCO2 56.0 VBG HCO3 24.6 VBG Total CO2 26.3 VBG O2 Sat (Calc) 99.3 H VBG Base Excess -3.5 L VBG Potassium 4.0 Sodium 124.0 L Chloride 97.0 L Glucose 244 H Lactate 1.8 FiO2 21.0 Potassium Carbon Dioxide Anion Gap BUN Creatinine Est GFR ( Amer) Est GFR (Non-Af Amer) POC Glucose (mg/dL) 162 H 219 H Random Glucose Calcium Phosphorus Magnesium Total Bilirubin AST ALT Alkaline Phosphatase Total Protein Albumin Globulin Albumin/Globulin Ratio Arterial Blood Potassium Venous Blood Potassium 4.0 12/15/17 12/16/17 12/16/17 21:30 05:40 05:40 WBC 6.8 D RBC 3.57 Hgb 12.8 Hct 42.1 MCV 117.9 H MCH 35.9 H MCHC 30.4 L RDW 17.4 H Plt Count 129 MPV 11.4 H Gran % 68.0 Lymph % (Auto) 19.7 L [place] % (Auto) 9.8 H Eos % (Auto) 2.5 Baso % (Auto) 0.0 Gran # 4.59 Lymph # (Auto) 1.3 [place] # (Auto) 0.7 H Eos # (Auto) 0.2 Baso # (Auto) 0.00 pCO2 pO2 HCO3 ABG pH ABG Total CO2 ABG O2 Saturation ABG Base Excess ABG Potassium VBG pH VBG pCO2 VBG HCO3 VBG Total CO2 VBG O2 Sat (Calc) VBG Base Excess VBG Potassium Sodium 135 Chloride 100 Glucose Lactate FiO2 Potassium 3.5 L Carbon Dioxide 24 Anion Gap 15 BUN 53 H Creatinine 4.1 H Est GFR ( Amer) 13 Est GFR (Non-Af Amer) 11 POC Glucose (mg/dL) 252 H Random Glucose 146 H Calcium 8.8 Phosphorus 3.9 Magnesium 2.0 Total Bilirubin 0.7 AST 15 ALT 22 Alkaline Phosphatase 129 H Total Protein 6.5 Albumin 3.0 Globulin 3.5 Albumin/Globulin Ratio 0.9 L Arterial Blood Potassium Venous Blood Potassium 12/16/17 12/16/17 07:16 09:25 WBC RBC Hgb Hct MCV MCH MCHC RDW Plt Count MPV Gran % Lymph % (Auto) [place] % (Auto) Eos % (Auto) Baso % (Auto) Gran # Lymph # (Auto) [place] # (Auto) Eos # (Auto) Baso # (Auto) pCO2 51 H pO2 101.0 H HCO3 23.4 ABG pH 7.27 L ABG Total CO2 25.0 ABG O2 Saturation 98.7 H ABG Base Excess -4.0 L ABG Potassium 3.3 L VBG pH VBG pCO2 VBG HCO3 VBG Total CO2 VBG O2 Sat (Calc) VBG Base Excess VBG Potassium Sodium 132.0 Chloride 98.0 Glucose 123 H Lactate 1.1 FiO2 40.0 Potassium Carbon Dioxide Anion Gap BUN Creatinine Est GFR ( Amer) Est GFR (Non-Af Amer) POC Glucose (mg/dL) 119 H Random Glucose Calcium Phosphorus Magnesium Total Bilirubin AST ALT Alkaline Phosphatase Total Protein Albumin Globulin Albumin/Globulin Ratio Arterial Blood Potassium 3.3 L Venous Blood Potassium Critical Care Progress Note - Nutrition Nutrition: Nutrition Category Date Time Status Renal Diet [DIET] Diets 12/09/17 Lunch Ordered Attending/Attestation - Attestation I have personally seen and examined this patient.: Yes I have fully participated in the care of the patient.: Yes I have reviewed all pertinent clinical information: Yes Notes (Text): 12/16/17 15:[address] Stephens note
[2017-12-16] MEDS: Lidocaine 2% Jelly (30 ml) TOP ONE ×2 (14:00→19:05)
--- NOTE | 2017-12-16 14:40 | PN ---
DATE: 12/16/2017 The patient is a female. The patient is 72-year-old. REASON FOR THE CONSULTATION AND FOLLOWUP: Cardiac evaluation, admitted with COPD exacerbation, pneumonia, shortness of breath, status post removal of the LifeVest, history of CAD, history of PTCA. SUBJECTIVE: The patient complained of swelling of the right arm and pain in the right arm. Denies any chest pain or shortness of breath. OBJECTIVE: GENERAL: Not in any apparent distress. Right arm appears to be swollen, Shiley on the right side for dialysis catheter. VITAL SIGNS: Temperature afebrile, heart rate 68, blood pressure 107/83. HEENT: PERRLA. Extraocular muscles intact. NECK: Supple. No carotid bruit or thyromegaly. CHEST: Clear to auscultation. HEART: S1 and S2 regular. ABDOMEN: Soft. EXTREMITIES: Clubbing and cyanosis negative. LABORATORY DATA: Blood workup as follows: WBC 6.8, hemoglobin 12.8, hematocrit 42.1, platelet count 129. Chemistry shows sodium 135, potassium 3.5, chloride 100, carbon dioxide 24, anion gap of 15, BUN 53, creatinine 4.1. IMPRESSION: A 72-year-old female with past medical history significant for end-stage renal disease on dialysis Friday, Friday, and Friday. Obesity, diabetes, hypertension, hyperlipidemia, coronary artery disease, status post percutaneous transluminal coronary angioplasty five years ago, being followed by [facility] by Dr. Sussy De La O's group. Admitted with pneumonia. The patient's lab showed preserved left ventricular function. Recently, the patient was in [facility] and was suggested automatic implantable cardioverter-defibrillator, but could not be placed because of possible pulmonary edema and the patient was at LifeVest. Repeat echocardiogram with preserved left ventricular function, battery from LifeVest drained out, and also the patient's preserved left ventricular function, LifeVest was discontinued and given to the family. The patient complained of swelling of the right arm, needs to rule out deep vein thrombosis. RECOMMENDATIONS: We will give ultrasound duplex to rule out DVT and get the ice compression of the right arm and continue metoprolol, beta-rossana. Continue dialysis. Continue broad-spectrum antibiotics. Overall, the patient's condition is critical. Long-term prognosis is extremely guarded. Needs to be followed upon discharge with Dr. Sussy De La O and Dr. Tuttle of . Discussed with Dr. Stephens, discussed with the nursing staff taking care of this. We will get a stat duplex venous study to rule out a DVT of right upper extremity and also we will get cold compression. Joss Bah MD
[2017-12-16] MEDS: Nystatin 100,000 Units/gm Topical Pow(15 gm) TOP SCH ×2 (15:37→19:04)
--- NOTE | 2017-12-16 15:42 | US ---
HISTORY: Arm pain and swelling. Evaluate for deep venous thrombosis. PHYSICIAN(S): Chaka Noel MD. FINDINGS: The visualized internal jugular veins are sonographically normal and compressible. No evidence of obstruction or thrombus this is seen. The visualized segments of the subclavian veins are patent with normal waveforms. No sonographic evidence of obstruction or thrombosis is seen. The visualized deep venous systems of both upper extremities proximally are sonographically normal and compressible. IMPRESSION: 1. No sonographic evidence for deep venous thrombosis in the visualized segments of both upper strategies.
[2017-12-16 16:36] LABS: ARTERIAL BLOOD GAS HCO3 20.1 mmol/L (21-28); ARTERIAL BLOOD GAS O2 SAT 93.8 % (95-98); ARTERIAL BLOOD GAS PCO2 48 mm/Hg (35-45); ARTERIAL BLOOD GAS PH 7.23 (7.35-7.45); ARTERIAL BLOOD GAS TCO2 21.6 mmol.L (22-28)
[2017-12-16] MEDS: Lidocaine 2% Jelly (30 ml) TOP SCH (19:04)
--- NOTE | 2017-12-16 19:20 | CP.PCM.PN ---
Subjective - Date & Time of Evaluation Date of Evaluation: 12/16/17 Time of Evaluation: 17:15 - Subjective Subjective: Infectious Disease Follow Up: December 16, 2017 72 yo Malaysian speaking female presenting to [facility] [place] [facility] with back pain on sitting down. Patient was found to be hypotensive in ER. The patient has an extensive medical history that includes ESRD on HD, CAD, CHF with EF of 35%, occluded heart vessels, DM, HTN, and ischemic cardiomyopathy. The patient is unable to provide any additional information at this time. Blood pressure improved after 1L fluid bolus on admission. The patient is awake, alert, and orientated times 2 now. Received HD. She appears confused now. Maintained on nasal cannula with supplemental O2. The patient was hypotensive during HD yesterday and brought back to the MICU. The patient appears more fatigued than yesterday. She remains confused. Objective - Vital Signs/Intake and Output Vital Signs (last 24 hours): Temp Pulse Resp BP Pulse Ox 97.2 F L 103 H 22 113/55 L 96 12/16/17 08:00 12/16/17 18:00 12/16/17 18:00 12/16/17 18:00 12/16/17 18:00 - Medications Medications: Current Medications Acetylcysteine (Acetylcysteine 20%) 4 ml IH 0800,1999 [facility] Last Admin: 12/16/17 08:00 Dose: 4 ml Albuterol/Ipratropium (Duoneb 3 Mg/0.5 Mg (3 Ml) Ud) 3 ml IH Q2H PRN PRN Reason: Shortness of Breath Last Admin: 12/13/17 04:44 Dose: 3 ml Albuterol/Ipratropium (Duoneb 3 Mg/0.5 Mg (3 Ml) Ud) 3 ml IH [id number] [facility] Last Admin: 12/16/17 16:10 Dose: 3 ml Arformoterol Tartrate (Brovana) 15 mcg IH [id number] [facility] Last Admin: 12/16/17 08:00 Dose: 15 mcg Bisacodyl (Dulcolax) 10 mg RC DAILY [facility] Last Admin: 12/16/17 16:00 Dose: 10 mg Budesonide (Pulmicort Respules) 0.5 mg IH [id number] [facility] Last Admin: 12/16/17 08:00 Dose: 0.5 mg Diphenhydramine HCl (Benadryl) 25 mg PO Q8 PRN PRN Reason: Itching / Pruritus Last Admin: 12/16/17 18:57 Dose: 25 mg Heparin Sodium (Porcine) (Heparin) 5,000 units SC Q12 [facility]; Protocol Last Admin: 12/16/17 11:06 Dose: 5,000 units Hydrocortisone (Anusol-Hc) 0 gm MT BID [facility] Last Admin: 12/15/17 17:55 Dose: 1 cre Dobutamine HCl/Dextrose (Dobutamine/Dextrose 5% 500mg/250ml) 500 mg in 250 mls @ 11.09 mls/hr IV .[id number] PRN; Protocol PRN Reason: TITRATE PER PROTOCOL Last Admin: 12/16/17 10:30 Dose: 5 mcg/kg/min, 11.09 mls/hr Insulin Human Regular (Humulin R High) 0 units SC ACHS [facility]; Protocol Last Admin: 12/16/17 18:58 Dose: Not Given Lidocaine HCl (Xylocaine 2%) 0 ea TOP BID [facility] Loratadine (Claritin) 10 mg PO DAILY [facility] Last Admin: 12/16/17 11:05 Dose: 10 mg Methylprednisolone (Solu-Medrol) 20 mg IVP DAILY [facility] Last Admin: 12/16/17 11:07 Dose: 20 mg Metoprolol Tartrate (Lopressor) 25 mg PO BID [facility] Last Admin: 12/15/17 17:54 Dose: Not Given Midodrine (Proamatine) 10 mg PO TID [facility] Last Admin: 12/16/17 18:57 Dose: 10 mg Montelukast Sodium (Singulair) 10 mg PO HS [facility] Last Admin: 12/15/17 23:41 Dose: 10 mg Nystatin (Nystop Topical Powder) 1 gm TOP BID [facility] Last Admin: 12/16/17 15:37 Dose: 1 applic Pantoprazole Sodium (Protonix Ec Tab) 40 mg PO ACB [facility] Last Admin: 12/16/17 11:06 Dose: 40 mg Sevelamer HCl (Renagel) 1,600 mg PO TID [facility] Last Admin: 12/16/17 18:56 Dose: 1,600 mg Vitamin A (Vitamin A & D Oint Ud Foilpak) 1 ea TOP Q4H PRN PRN Reason: dry mouth area - Labs Labs: 12/16/17 05:40 10/30/18 05:40 - Constitutional Appears: Confused, Chronically Ill - Head Exam Head Exam: ATRAUMATIC, NORMOCEPHALIC - Eye Exam Eye Exam: EOMI, PERRL Pupil Exam: NORMAL ACCOMODATION, PERRL - ENT Exam ENT Exam: Mucous Membranes Moist, Normal External Ear Exam, TM's Normal Bilaterally - Neck Exam Neck Exam: Full ROM, Normal Inspection - Respiratory Exam Respiratory Exam: Clear to Ausculation Bilateral, NORMAL BREATHING PATTERN. absent: Rales, Rhonchi, Wheezes - Cardiovascular Exam Cardiovascular Exam: REGULAR RHYTHM, RRR, +S1, +S2 - GI/Abdominal Exam GI & Abdominal Exam: Soft, Normal Bowel Sounds. absent: Distended, Tenderness - Extremities Exam Extremities Exam: Full ROM, Normal Inspection - Neurological Exam Neurological Exam: Alert, Awake, CN II-XII Intact Additional comments: Fatigued and confused - Psychiatric Exam Psychiatric exam: Normal Affect, Normal Mood - Skin Skin Exam: Intact, Normal Color Assessment and Plan - Assessment and Plan (Free Text) Assessment: 72 yo female known to me from [place] hospitalizations [place] [facility] The patient with initial complaint of back pain on sitting down . Found to be hypotensiive at this time. Antibiotics and fluids started. The patient is more awake and alert compared to admission. Blood pressure has improved with 1L of fluids. Started on Aztreonam for antibiotic coverage with single dose of Vancomycin IV and Gentamicin IV. Nam cultures sent. No leukocytosis. Supportive care. If there is continued worsening, will have to consider use of Cefepime despite PCN allergy. Awaiting culture results. The patient is awake and alert now but still confused. The patient can follow commands. Not hypotensive at this time. Cultures with no growth at this time after 3 days. Maintain Broad antibiotic coverage at this time. No specific source of sepsis seen. Septic versus Cardiogenic shock on initial presentation. No specific infectious etiology found at this time. On Aztreonam at this time. Consider 7 to 10 days of antibiotics in total. More likely Cardiogenic in origin. Nearing completion of Aztreonam. The patient had hypotension in HD today and was brought back to MICU. Procalcitonin during this hospitalization was 0.81 which is low for a septic picture. The patient completed 7 days of Aztreonam at this time. Stage II sacral decubiti dressed. Thank you for allowing me to participate in the care of this patient, we will follow with you.
--- NOTE | 2017-12-16 23:45 | OP ---
PROCEDURE DATE: 12/16/2017 PROCEDURE: Left femoral CVC placement. INDICATION: IV access. Inability to put CVC in subclavian or IJ region due to prior procedures and presence of failed dialysis catheter as well as active dialysis catheter on the upper left and the right major veins locations. SURGEON: Adi Stephens MD DESCRIPTION OF PROCEDURE: After obtaining informed consent, operational area was sterilized. Time out performed. Maximum barrier precautions used. Right common femoral vein was cannulated according to sterile Seldinger technique by real-time ultrasound guidance. Guidewire removed. Hemostasis achieved. Sterile dressing applied. Patient tolerated the procedure well. EBL is minimal. Adi Stephens MD MTDD
--- NOTE | 2017-12-16 23:50 | PN ---
DATE: 12/16/2017 PULMONARY CRITICAL CARE PROGRESS NOTE REFERRING PHYSICIAN: Dr. House SUBJECTIVELY: She is lying in the bed, sleepy, arousable, getting ABG done. Night was unremarkable. Tolerated BiPAP well. Daytime on supplemental oxygen, short of breath with minimal exertion. No chest pain, no nausea, no vomiting, no diarrhea. Does have upper and lower extremity swelling. OBJECTIVELY: GENERAL: No acute distress. Sleepy, arousable. VITAL SIGNS: Temp is 98, heart rate is 101, respiratory rate is 20, blood pressure 108/38, pulse ox 95%. HEENT: Moist mucous membrane. Crowded airway. Mallampati score is 4. NECK: Supple. No JVD. LUNGS: Has a fair airflow with few prolonged expiratory phase and wheezing. HEART: S1 and S2. ABDOMEN: Soft, nontender, no organomegaly. EXTREMITIES: Does have edema. NEUROLOGICALLY: Sleepy, arousable, confused. MEDICATIONS: She is on Mucomyst inhaled twice a day, Anusol rectally twice a day, Benadryl 25 mg every 8 hours p.r.n., Brovana inhaled twice a day, Claritin 10 mg daily, dobutamine IV drip is started today, Dulcolax 10 mg rectally, DuoNeb every 2 hours p.r.n. and every 4 hours [id number], heparin 5000 units subcu every 12 hours, insulin coverage, metoprolol tartrate 25 mg twice a day, ProAmatine 10 mg three times a day, Protonix 40 mg before breakfast, budesonide inhaled twice a day, Singulair 10 mg daily, Solu-Medrol 20 mg daily, vitamin A and D ointment to affected area every 4 hours, lidocaine to affected area twice a day. LABORATORY DATA: Shows hemoglobin 12.8, hematocrit 42.1, WBC 6.8, platelet count is 129. ABG show pH 7.23, pCO2 48, O2 is 65 that is on nasal cannula. Sodium 135, potassium 2.5, chloride 100, bicarbonate 24, BUN 53, creatinine 4.1, glucose 146, calcium is 8.8, phosphorus 3.9, magnesium is 2, AST 50, ALT 22, alk phos is 129. Albumin is 3. Microbiology; blood culture, urine culture, there is no growth. Chest x-ray shows diminished right pleural effusion, linear atelectasis in the left lung base. Extremity ultrasound done which shows no evidence of DVT. IMPRESSION AND PLAN: Respiratory failure, CO2 retention and hypoxemia, requiring noninvasive ventilation, pulmonary hypertension, renal failure, dialysis dependent, cardiomyopathy, coronary artery disease, morbid obesity. Pulmonary point of view, encourage BiPAP use at nighttime. Continue IV and inhaled bronchodilator. Agree trying small dose of dobutamine if we can help arise her to get better out for. Gastric prophylaxis, DVT prophylaxis. Avoid sedatives. Clinical care time more than 35 minutes. Thank you and we will follow with you. Joss Arias MD
[2017-12-17] MEDS: Albuterol-Ipratrop 3 mg / 0.5 (3 ml) UD IH SCH ×6 (04:17→23:39)
[2017-12-17] MEDS: Vitamins A & D Oint UD Foilpak TOP PRN (06:36)
[2017-12-17 07:17] LABS: EOS % 0.1 % (1.5-5.0); GRAN # 6.64 (1.4-6.5); GRAN % 79.6 % (50.0-68.0); HEMOGLOBIN 11.2 g/dL (12.0-16.0); LYMPH # 0.8 (1.2-3.4); LYMPH % 9.7 % (22.0-35.0); MEAN CORPUSCULAR HEMOGLOBIN 35.7 pg (25.0-35.0); MEAN CORPUSCULAR HGB CONC 31.3 g/dl (31.0-37.0); MEAN PLATELET VOLUME 11.6 fl (7.0-11.0); MONO # 0.9 (0.1-0.6); MONO % 10.6 % (1.0-6.0); RBC 3.14 10^6/uL (3.5-6.1); RED CELL DISTRIBUTION WIDTH 17.6 % (11.5-14.5); WHITE BLOOD COUNT 8.3 10^3/uL (4.5-11.0)
[2017-12-17] MEDS: Acetylcysteine 20% Inhal Soln (4ml) IH SCH ×2 (07:32→23:38)
[2017-12-17 07:33] LABS: ALB/GLOB RATIO 0.9 (1.1-1.8); ALBUMIN 3.1 g/dL (3.0-4.8); CALCIUM 8.8 mg/dL (8.4-10.5)
[2017-12-17] MEDS: Budesonide 0.5 mg/2 ml Inhal Susp UD IH SCH (07:33)
[2017-12-17] MEDS: Pantoprazole 40 mg EC Tab PO SCH (07:56)
[2017-12-17] MEDS: MethylPREDNISolone 40 mg Vial IVP SCH (07:57)
--- NOTE | 2017-12-17 08:15 | PN ---
DATE: 12/16/2017 SUBJECTIVE: The patient was seen and examined at the bedside on 12/16/2017, looking comfortable. The patient is still in the CCU. No headache, no dizziness. No chest pain. No palpitation. No fever, no chills. She is awake and alert, but getting confused. The patient had a triple-lumen catheter placed in her right groin, unable to place the PICC line. PHYSICAL EXAMINATION VITAL SIGNS: Blood pressure 120/57, heart rate 84, temperature 97.2, respiratory rate 20. The patient is using BiPAP. HEENT: Head normocephalic, atraumatic. Eyes, PERRLA. Extraocular muscles intact. Conjunctivae clear. Nose patent. Mucous membrane moist. NECK: Supple. No carotid bruit. No JVD or thyromegaly. CHEST: Bilaterally symmetrical. HEART: S1, S2 positive. LUNGS: Clear to auscultation. ABDOMEN: Soft. Bowel sounds present. No organomegaly. EXTREMITIES: No edema. No cyanosis. NEUROLOGICAL: The patient is awake and alert. Moving all 4 extremities. No focal deficits. LABORATORY DATA: White blood cells 6.8, hemoglobin 12.8, hematocrit 42.1 and platelets 129. Glucose 315, 248, 124. MEDICATIONS: Acetylcysteine, Anusol, Benadryl, Brovana, Claritin,DuoNeb, Dulcolax, heparin, insulin, Lopressor, ASSESSMENT AND PLAN: Mrs. Debby Olguin, 72 years old female with end-stage renal disease, on hemodialysis; coronary artery disease with cardiac stenting with LifeVest , hypertension, came with hypotension. The patient had hypercapnia, respiratory acidosis, giving BiPAP, history of chronic obstructive pulmonary disease. The patient is awake and alert, oriented x3, getting treatment in the unit, has hypercapnic respiratory failure. Repeat arterial blood gas. DuoNeb. Continue with Protonix, gastrointestinal and deep venous thrombosis prophylaxis, repeat labs. Taylor House MD [facility]
[2017-12-17 08:47] LABS: ARTERIAL BLOOD GAS HCO3 22.6 mmol/L (21-28); ARTERIAL BLOOD GAS HEMOGLOBIN 11.8 g/dL (11.7-17.4); ARTERIAL BLOOD GAS O2 CAPACITY 16.2 mL/dl (16-24); ARTERIAL BLOOD GAS O2 SAT 98.9 % (95-98); ARTERIAL BLOOD GAS PCO2 46 mm/Hg (35-45)
[2017-12-17] MEDS: Insulin Reg-HIGH-Coverage SC SCH ×3 (09:00→18:51)
--- NOTE | 2017-12-17 09:12 | PN ---
DATE: 12/17/2017 SUBJECTIVE: The patient was seen and examined at bedside. She is comfortable. She is sleeping on BiPAP 20/8 with FiO2 40%. She is in dobutamine 5 mcg per kg per minute. PHYSICAL EXAMINATION: VITAL SIGNS: Her heart rate is 95. Her oxygen saturation 100%. Her blood pressure 135/56 and respiratory rate 14. She pulls 650 tidal volume. HEENT: Head and neck atraumatic. LUNGS: Clear to auscultation bilaterally. HEART: Regular rate and rhythm. S1 and S2 normal. ABDOMEN: Soft, nontender, nondistended. MUSCULOSKELETAL: Trace bilateral pedal and ankle edema. Right femoral CVC present, not inflamed, not irritated, not erythematous. SKIN: Moist. NEUROLOGIC: The patient moves all extremities spontaneously. PSYCHIATRIC: The patient is alert and awake. LABORATORY DATA: WBC 8.3, hemoglobin 11.2, platelet count 145. Sodium 134, potassium 3.9, chloride 98, carbon dioxide 23, BUN 70, creatinine 4.9 (the patient is on chronic dialysis), glucose 300. MEDICATIONS: Acetylcysteine, DuoNeb every 4 hours, Dulcolax, Pulmicort, dobutamine, heparin 5000 subcu every 12 hours, regular insulin sliding scale before meals and at bedtime (will be switched to high coverage every 6 hours), Singulair, midodrine, metoprolol, Solu-Medrol 20 mg IV daily, Protonix, Renagel, and vitamin A and D. ASSESSMENT AND PLAN: This is a 72-year-old lady who presented with hypercapnic respiratory failure in the setting of right ventricular failure due to pulmonary hypertension. The patient tolerates Dobutrex well. She tolerates BiPAP well. Vital signs stable on dobutamine 5 mcg per kg per minute. Am ABG much improved as is mental status. We will continue with steroid taper, bronchodilators, DVT, GI prophylaxis. Ok to downgrade to tele ccm time 40 min Adi Stephens MD ESDRAS
[2017-12-17] MEDS: DOBUTamine 500mg/250ml D5W 500 MG/250 ML BAG IV PRN (09:21)
[2017-12-17] MEDS: Nystatin 100,000 Units/gm Topical Pow(15 gm) TOP SCH ×2 (10:00→19:03)
[2017-12-17] MEDS: Lidocaine 2% Jelly (30 ml) TOP SCH ×2 (10:00→19:05)
[2017-12-17] MEDS: Hydrocortisone 2.5% Rectal Cream(30 gm) PR SCH ×2 (10:00→19:02)
[2017-12-17] MEDS ORDERED: Insulin Reg-HIGH-Coverage SC SCH (11:30)
--- NOTE | 2017-12-17 12:32 | PN ---
DATE: 12/17/2017 REASON FOR CONSULTATION AND FOLLOWUP: Cardiac evaluation, admitted with COPD exacerbation, pneumonia, shortness of breath, status post removal of LifeVest, history CAD, history of PTCA. SUBJECTIVE: Patient denies any chest pain. Complaining of pain in right arm and swelling. OBJECTIVE: GENERAL: Not in apparent distress. Right arm appears swollen, on pillow it is elevated. Yesterday had stat Duplex scan done with negative for DVT. VITAL SIGNS: Temperature afebrile, heart rate 99, blood pressure 136/56. HEENT: PERRLA. Extraocular muscles intact.. NECK: Supple. No carotid bruits or thyromegaly. CHEST: Clear to auscultation. HEART: S1, S2 regular. ABDOMEN: Soft. EXTREMITIES: Clubbing and cyanosis negative. LABORATORY DATA: Blood workup as follows: WBC 8.3, hemoglobin 11.3, hematocrit 35.8, platelet count 145. Chemistry shows sodium 134, potassium 3.9, chloride 98, carbon dioxide 23, anion gap of 17, BUN 70, creatinine 4.9. IMPRESSION: A 72-year-old female with past medical history significant for coronary artery disease status post percutaneous transluminal coronary angioplasty in the past, end-stage renal disease, on dialysis, admitted with pneumonia after recently being discharged from [facility], history of hypertension, diabetes, obesity. Being followed there by Dr. Sussy De La O's group. Patient was on LifeVest. Repeat echocardiogram done showed preserved LV function. LifeVest is off as bed ran out as well. Impending respiratory failure, being managed on noninvasive ventilator. Continue broad-spectrum antibiotics, continue dialysis, out of bed to chair, continue deep vein thrombosis prophylaxis, continue low-dose beta-rossana as blood pressure is tolerated. CVS status is stable, holding. We will follow with you. So far no evidence of acute myocardial infarction. After all these stress in the setting of chronic kidney disease, troponin is 0.08. Soon, no evidence of acute myocardial infarction. We will follow with you. Thank you, Dr. House, for providing us the opportunity in taking care of the patient, Debby Olguin. Joss Bah MD [facility] # [id number]
--- NOTE | 2017-12-17 12:55 | CP.CCUPN ---
<Ryder Alamo - Last Filed: 12/17/17 13:05> CCU Subjective - Physician Review Subjective (Free Text): CRITICAL CARE PROGRESS NOTE FOR DR. MARTIN Alamo PGY-1 Pt seen and examined at bedside this am. No acute nursing events overnight. She is tolerating her diet. She is axo x 3. 12 point ros is negative. CCU Objective - Vital Signs / Intake & Output Intake and Output (Last 8hrs): Intake & Output 12/16/17 12/17/17 12/17/17 22:59 06:59 14:59 Intake Total 300 132 250 Output Total 0 45 Balance 300 87 250 Weight 163 lb Intake: IV 100 132 250 Right Femoral 100 132 Oral 200 Output: Urine 0 Urine, Voided 0 Stool 45 Other: # Bowel Movements 1 1 - Physical Exam Head: Positive for: Atraumatic, Normocephalic Pupils: Positive for: PERRL Extroacular Muscles: Positive for: EOMI Conjunctiva: Positive for: Normal Mouth: Positive for: Moist Mucous Membranes Neck: Positive for: Normal Range of Motion Respiratory/Chest: Positive for: Wheezes. Negative for: Respiratory Distress, Accessory Muscle Use Cardiovascular: Positive for: Regular Rate and Rhythm, Normal S1, S2. Negative for: Murmurs Abdomen: Positive for: Distention. Negative for: Tenderness, Peritoneal Signs, Rebound Back: Positive for: Normal Inspection Upper Extremity: Positive for: Normal Inspection. Negative for: Cyanosis, Edema Lower Extremity: Positive for: Normal Inspection. Negative for: Edema Neurological: Positive for: GCS=15, CN II-XII Intact, Speech Normal Skin: Positive for: Warm, Dry, Normal Color. Negative for: Rashes Psychiatric: Positive for: Alert, Oriented x 3, Normal Insight, Normal Concentration - Medications Active Medications: Active Medications Generic Name Dose Route Start Last Admin Trade Name Freq PRN Reason Stop Dose Admin Acetylcysteine 4 ml 12/13/17 22:22 12/17/17 07:32 Acetylcysteine 20% IH 4 ml 0800,2000 AUGUSTIN Administration Albuterol/Ipratropium 3 ml 12/08/17 14:37 12/13/17 04:44 Duoneb 3 Mg/0.5 Mg (3 Ml) Ud IH 3 ml Q2H PRN Administration Shortness of Breath Albuterol/Ipratropium 3 ml 12/16/17 11:30 12/17/17 11:32 Duoneb 3 Mg/0.5 Mg (3 Ml) Ud IH 3 ml [id number] AUGUSTIN Administration Arformoterol Tartrate 15 mcg 12/12/17 08:00 12/16/17 08:00 Brovana IH 15 mcg [id number] AUGUSTIN Administration Bisacodyl 10 mg 12/10/17 10:00 12/16/17 16:00 Dulcolax RC 10 mg DAILY AUGUSTIN Administration Budesonide 0.5 mg 12/12/17 08:00 12/17/17 07:33 Pulmicort Respules IH 0.5 mg [id number] AUGUSTIN Administration Diphenhydramine HCl 25 mg 12/11/17 15:33 12/17/17 07:56 Benadryl PO 25 mg Q8 PRN Administration Itching / Pruritus Heparin Sodium (Porcine) 5,000 units 12/08/17 22:00 12/17/17 07:57 Heparin SC 5,000 units Q12 AUGUSTIN Administration Protocol Hydrocortisone 0 gm 12/13/17 18:15 12/16/17 19:04 Anusol-Hc DE 1 cre BID AUGUSTIN Administration Dobutamine HCl/Dextrose 500 mg in 250 mls @ 11.09 mls/hr 12/16/17 08:58 12/17/17 09:21 Dobutamine/Dextrose 5% 500mg/250ml IV 5 mcg/kg/min .[id number] PRN 11.09 mls/hr TITRATE PER PROTOCOL Administration Protocol 5 MCG/KG/MIN Insulin Human Regular 0 units 12/17/17 08:15 12/17/17 09:00 Humulin R High SC 7 u Q6H AUGUSTIN Administration Protocol Lidocaine HCl 0 ea 12/16/17 18:00 Xylocaine 2% TOP BID AUGUSTIN Loratadine 10 mg 12/13/17 10:00 12/17/17 07:57 Claritin PO 10 mg DAILY AUGUSTIN Administration Methylprednisolone 20 mg 12/15/17 10:00 12/17/17 07:57 Solu-Medrol IVP 20 mg DAILY AUGUSTIN Administration Metoprolol Tartrate 25 mg 12/08/17 18:00 12/15/17 17:54 Lopressor PO Not Given BID AUGUSTIN Midodrine 10 mg 12/16/17 10:00 12/17/17 07:56 Proamatine PO 10 mg TID AUGUSTIN Administration Montelukast Sodium 10 mg 12/12/17 22:00 12/16/17 22:15 Singulair PO 10 mg HS AUGUSTIN Administration Nystatin 1 gm 12/16/17 18:00 12/16/17 19:04 Nystop Topical Powder TOP 1 applic BID AUGUSTIN Administration Pantoprazole Sodium 40 mg 12/12/17 07:30 12/17/17 07:56 Protonix Ec Tab PO 40 mg ACB AUGUSTIN Administration Sevelamer HCl 1,600 mg 12/09/17 14:00 12/17/17 07:54 Renagel PO 1,600 mg TID AUGUSTIN Administration Vitamin A 1 ea 12/15/17 17:50 12/17/17 06:36 Vitamin A & D Oint Ud Foilpak TOP 1 ea Q4H PRN Administration dry mouth area - Patient Studies Lab Studies: Microbiology Studies 12/15/17 20:30 Blood Culture - Preliminary Blood NO GROWTH AFTER 24 HOURS Lab Studies 12/17/17 12/17/17 12/17/17 Range/Units 08:40 07:17 06:15 WBC (4.5-11.0) 10^3/uL RBC (3.5-6.1) 10^6/uL Hgb (12.0-16.0) g/dL Hct (36.0-48.0) % MCV (80.0-105.0) fl MCH (25.0-35.0) pg MCHC (31.0-37.0) g/dl RDW (11.5-14.5) % Plt Count (120.0-450.0) 10^3/uL MPV (7.0-11.0) fl Gran % (50.0-68.0) % Lymph % (Auto) (22.0-35.0) % [place] % (Auto) (1.0-6.0) % Eos % (Auto) (1.5-5.0) % Baso % (Auto) (0.0-3.0) % Gran # (1.4-6.5) Lymph # (Auto) (1.2-3.4) [place]nam # (Auto) (0.1-0.6) Eos # (Auto) (0.0-0.7) Baso # (Auto) (0.0-2.0) K/mm3 pCO2 46 H (35-45) mm/Hg pO2 106.0 H (80-100) mm/Hg HCO3 22.6 (21-28) mmol/L ABG pH 7.30 L (7.35-7.45) ABG Total CO2 24.0 (22-28) mmol.L ABG O2 Saturation 98.9 H (95-98) % ABG O2 Content 16.0 (15-23) ML/dl ABG Base Excess -3.9 L (-2.0-3.0) mmol/L ABG Hemoglobin 11.8 (11.7-17.4) g/dL ABG Carboxyhemoglobin 2.0 H (0.5-1.5) % POC ABG HHb (Measured) 1.1 (0-5) % ABG Methemoglobin 1.1 (0.0-3.0) % ABG O2 Capacity 16.2 (16-24) mL/dl ABG Potassium (3.6-5.2) mmol/L Hgb O2 Saturation 95.8 (95.0-98.0) % Sodium 134 (132-148) mmol/L Chloride 98 (98-107) mmol/L Glucose (65-105) mg/dl Lactate (0.7-2.1) mmol/L FiO2 40.0 % Potassium 3.9 (3.6-5.0) mmol/L Carbon Dioxide 23 (21-33) mmol/L Anion Gap 17 (10-20) BUN 70 H (7-21) mg/dL Creatinine 4.9 H (0.7-1.2) mg/dl Est GFR ( Amer) 10 Est GFR (Non-Af Amer) 9 POC Glucose (mg/dL) 276 H (65-110) mg/dL Random Glucose 300 H (70-110) mg/dL Calcium 8.8 (8.4-10.5) mg/dL Phosphorus 3.5 (2.5-4.5) mg/dL Magnesium 2.0 (1.7-2.2) mg/dL Total Bilirubin 0.8 (0.2-1.3) mg/dL AST 18 (14-36) U/L ALT 25 (7-56) U/L Alkaline Phosphatase 138 H (38-126) U/L Total Protein 6.4 (5.8-8.3) g/dL Albumin 3.1 (3.0-4.8) g/dL Globulin 3.3 gm/dL Albumin/Globulin Ratio 0.9 L (1.1-1.8) Arterial Blood Potassium (3.6-5.2) mmol/L 12/17/17 12/16/17 12/16/17 Range/Units 06:15 21:49 16:47 WBC 8.3 (4.5-11.0) 10^3/uL RBC 3.14 L (3.5-6.1) 10^6/uL Hgb 11.2 L (12.0-16.0) g/dL Hct 35.8 L (36.0-48.0) % MCV 114.0 H D (80.0-105.0) fl MCH 35.7 H (25.0-35.0) pg MCHC 31.3 (31.0-37.0) g/dl RDW 17.6 H (11.5-14.5) % Plt Count 145 (120.0-450.0) 10^3/uL MPV 11.6 H (7.0-11.0) fl Gran % 79.6 H (50.0-68.0) % Lymph % (Auto) 9.7 L (22.0-35.0) % [place] % (Auto) 10.6 H (1.0-6.0) % Eos % (Auto) 0.1 L (1.5-5.0) % Baso % (Auto) 0.0 (0.0-3.0) % Gran # 6.64 H (1.4-6.5) Lymph # (Auto) 0.8 L (1.2-3.4) [place] # (Auto) 0.9 H (0.1-0.6) Eos # (Auto) 0.0 (0.0-0.7) Baso # (Auto) 0.00 (0.0-2.0) K/mm3 pCO2 (35-45) mm/Hg pO2 (80-100) mm/Hg HCO3 (21-28) mmol/L ABG pH (7.35-7.45) ABG Total CO2 (22-28) mmol.L ABG O2 Saturation (95-98) % ABG O2 Content (15-23) ML/dl ABG Base Excess (-2.0-3.0) mmol/L ABG Hemoglobin (11.7-17.4) g/dL ABG Carboxyhemoglobin (0.5-1.5) % POC ABG HHb (Measured) (0-5) % ABG Methemoglobin (0.0-3.0) % ABG O2 Capacity (16-24) mL/dl ABG Potassium (3.6-5.2) mmol/L Hgb O2 Saturation (95.0-98.0) % Sodium (132-148) mmol/L Chloride (98-107) mmol/L Glucose (65-105) mg/dl Lactate (0.7-2.1) mmol/L FiO2 % Potassium (3.6-5.0) mmol/L Carbon Dioxide (21-33) mmol/L Anion Gap (10-20) BUN (7-21) mg/dL Creatinine (0.7-1.2) mg/dl Est GFR ( Amer) Est GFR (Non-Af Amer) POC Glucose (mg/dL) 315 H 248 H (65-110) mg/dL Random Glucose (70-110) mg/dL Calcium (8.4-10.5) mg/dL Phosphorus (2.5-4.5) mg/dL Magnesium (1.7-2.2) mg/dL Total Bilirubin (0.2-1.3) mg/dL AST (14-36) U/L ALT (7-56) U/L Alkaline Phosphatase (38-126) U/L Total Protein (5.8-8.3) g/dL Albumin (3.0-4.8) g/dL Globulin gm/dL Albumin/Globulin Ratio (1.1-1.8) Arterial Blood Potassium (3.6-5.2) mmol/L 12/16/17 12/16/17 Range/Units 16:30 11:17 WBC (4.5-11.0) 10^3/uL RBC (3.5-6.1) 10^6/uL Hgb (12.0-16.0) g/dL Hct (36.0-48.0) % MCV (80.0-105.0) fl MCH (25.0-35.0) pg MCHC (31.0-37.0) g/dl RDW (11.5-14.5) % Plt Count (120.0-450.0) 10^3/uL MPV (7.0-11.0) fl Gran % (50.0-68.0) % Lymph % (Auto) (22.0-35.0) % [place] % (Auto) (1.0-6.0) % Eos % (Auto) (1.5-5.0) % Baso % (Auto) (0.0-3.0) % Gran # (1.4-6.5) Lymph # (Auto) (1.2-3.4) [place] # (Auto) (0.1-0.6) Eos # (Auto) (0.0-0.7) Baso # (Auto) (0.0-2.0) K/mm3 pCO2 48 H (35-45) mm/Hg pO2 65.0 L (80-100) mm/Hg HCO3 20.1 L (21-28) mmol/L ABG pH 7.23 L (7.35-7.45) ABG Total CO2 21.6 L (22-28) mmol.L ABG O2 Saturation 93.8 L (95-98) % ABG O2 Content (15-23) ML/dl ABG Base Excess -7.5 L (-2.0-3.0) mmol/L ABG Hemoglobin (11.7-17.4) g/dL ABG Carboxyhemoglobin (0.5-1.5) % POC ABG HHb (Measured) (0-5) % ABG Methemoglobin (0.0-3.0) % ABG O2 Capacity (16-24) mL/dl ABG Potassium 3.9 (3.6-5.2) mmol/L Hgb O2 Saturation (95.0-98.0) % Sodium 131.0 L (132-148) mmol/L Chloride 98.0 (98-107) mmol/L Glucose 255 H (65-105) mg/dl Lactate 1.2 (0.7-2.1) mmol/L FiO2 36.0 % Potassium (3.6-5.0) mmol/L Carbon Dioxide (21-33) mmol/L Anion Gap (10-20) BUN (7-21) mg/dL Creatinine (0.7-1.2) mg/dl Est GFR ( Amer) Est GFR (Non-Af Amer) POC Glucose (mg/dL) 124 H (65-110) mg/dL Random Glucose (70-110) mg/dL Calcium (8.4-10.5) mg/dL Phosphorus (2.5-4.5) mg/dL Magnesium (1.7-2.2) mg/dL Total Bilirubin (0.2-1.3) mg/dL AST (14-36) U/L ALT (7-56) U/L Alkaline Phosphatase (38-126) U/L Total Protein (5.8-8.3) g/dL Albumin (3.0-4.8) g/dL Globulin gm/dL Albumin/Globulin Ratio (1.1-1.8) Arterial Blood Potassium 3.9 (3.6-5.2) mmol/L Laboratory Results - last 24 hr 12/16/17 12/16/17 12/16/17 11:17 16:30 16:47 WBC RBC Hgb Hct MCV MCH MCHC RDW Plt Count MPV Gran % Lymph % (Auto) [place] % (Auto) Eos % (Auto) Baso % (Auto) Gran # Lymph # (Auto) [place] # (Auto) Eos # (Auto) Baso # (Auto) pCO2 48 H pO2 65.0 L HCO3 20.1 L ABG pH 7.23 L ABG Total CO2 21.6 L ABG O2 Saturation 93.8 L ABG O2 Content ABG Base Excess -7.5 L ABG Hemoglobin ABG Carboxyhemoglobin POC ABG HHb (Measured) ABG Methemoglobin ABG O2 Capacity ABG Potassium 3.9 Hgb O2 Saturation Sodium 131.0 L Chloride 98.0 Glucose 255 H Lactate 1.2 FiO2 36.0 Potassium Carbon Dioxide Anion Gap BUN Creatinine Est GFR ( Amer) Est GFR (Non-Af Amer) POC Glucose (mg/dL) 124 H 248 H Random Glucose Calcium Phosphorus Magnesium Total Bilirubin AST ALT Alkaline Phosphatase Total Protein Albumin Globulin Albumin/Globulin Ratio Arterial Blood Potassium 3.9 12/16/17 12/17/17 12/17/17 21:49 06:15 06:15 WBC 8.3 RBC 3.14 L Hgb 11.2 L Hct 35.8 L MCV 114.0 H D MCH 35.7 H MCHC 31.3 RDW 17.6 H Plt Count 145 MPV 11.6 H Gran % 79.6 H Lymph % (Auto) 9.7 L [place] % (Auto) 10.6 H Eos % (Auto) 0.1 L Baso % (Auto) 0.0 Gran # 6.64 H Lymph # (Auto) 0.8 L [place] # (Auto) 0.9 H Eos # (Auto) 0.0 Baso # (Auto) 0.00 pCO2 pO2 HCO3 ABG pH ABG Total CO2 ABG O2 Saturation ABG O2 Content ABG Base Excess ABG Hemoglobin ABG Carboxyhemoglobin POC ABG HHb (Measured) ABG Methemoglobin ABG O2 Capacity ABG Potassium Hgb O2 Saturation Sodium 134 Chloride 98 Glucose Lactate FiO2 Potassium 3.9 Carbon Dioxide 23 Anion Gap 17 BUN 70 H Creatinine 4.9 H Est GFR ( Amer) 10 Est GFR (Non-Af Amer) 9 POC Glucose (mg/dL) 315 H Random Glucose 300 H Calcium 8.8 Phosphorus 3.5 Magnesium 2.0 Total Bilirubin 0.8 AST 18 ALT 25 Alkaline Phosphatase 138 H Total Protein 6.4 Albumin 3.1 Globulin 3.3 Albumin/Globulin Ratio 0.9 L Arterial Blood Potassium 12/17/17 12/17/17 07:17 08:40 WBC RBC Hgb Hct MCV MCH MCHC RDW Plt Count MPV Gran % Lymph % (Auto) [place] % (Auto) Eos % (Auto) Baso % (Auto) Gran # Lymph # (Auto) [place] # (Auto) Eos # (Auto) Baso # (Auto) pCO2 46 H pO2 106.0 H HCO3 22.6 ABG pH 7.30 L ABG Total CO2 24.0 ABG O2 Saturation 98.9 H ABG O2 Content 16.0 ABG Base Excess -3.9 L ABG Hemoglobin 11.8 ABG Carboxyhemoglobin 2.0 H POC ABG HHb (Measured) 1.1 ABG Methemoglobin 1.1 ABG O2 Capacity 16.2 ABG Potassium Hgb O2 Saturation 95.8 Sodium Chloride Glucose Lactate FiO2 40.0 Potassium Carbon Dioxide Anion Gap BUN Creatinine Est GFR ( Amer) Est GFR (Non-Af Amer) POC Glucose (mg/dL) 276 H Random Glucose Calcium Phosphorus Magnesium Total Bilirubin AST ALT Alkaline Phosphatase Total Protein Albumin Globulin Albumin/Globulin Ratio Arterial Blood Potassium Fingerstick Blood Sugar Results: 246 Review of Systems - Review of Systems Review of Systems: per HPI Critical Care Progress Note - Nutrition Nutrition: Nutrition Category Date Time Status Renal Diet [DIET] Diets 12/09/17 Lunch Ordered Assessment/Plan - Assessment and Plan (Free Text) Assessment: 72 y/o F with PMHx of ESRD on HD, CAD s/p stent with lifevest(pending AICD), DM, HTN presented to [facility] admitted to ICU for hypotension on medicine floors. Pt presenting with hypercapnic respiratory acidosis. Pt treated with BiPAP in the setting of pulmonary HTN secondary to COPD vs LV diastolic dysfunction. Plan: Neuro: Awake, alert & oriented x 3. Hospital delirium vs dementia Pt answering questions, responsive, however confused repeat ABG today Neuro consult: Dr. Hensley GCS 15 CN grossly intact optimize circadian rhythm reorient frequently Cardio: Shock resolved, probably sepsis but no source found. Likely cardiogenic from renal failure Femoral central access continue on dobutamine for inotropic support of RV Midodrine for BP support LEANN/RACHEL may potentially improve cardiac function by improving LV EDV Will consider pressor support if inotropic support doesnt stabilize BP D/c beta blockers Maintain MAP >65 Conservative fluid management by HD Echo (12/10/17): LVEF 50-55%. Flattened septum consistent with RV volume and pressure overload. RV is severely dilated. Systolic function of RV is severely reduced. RVSP - 34, underestimated d/t TR jet. Pulm: Hypercapnic respiratory failure 7.27/51/101/24 Lactate: 1.1 Pt maintaining her own airway Repeat ABG Duoneb treatments q2H prn Acetylcysteine Duoneb q2hprn Aformoterol Budesonide Loratadine Solu-medrol 20mg IVP montelukast Maintain 02 sat >90% HOB 30 degrees GI: Distended Continue with protonix for GI ppx /Renal: ESRD on HD MWF per nephrology team BUN/Cr below baseline Conservative fluid management Maintain euvolemia Continue to monitor Per Nephro, pt can be transferred to floors Endocrine: Hx of DM Maintain euglycemia Fingersticks q6h ISS-High Heme: Macrocytic anemia at baseline platelets stable continue to monitor ID Completed course of aztreonam Single dose of vancomycin/gentamicin completed this hospitalization Panculture negative Will consider cefepime despite penicillin if condition worsens Stage 2 sacral ulcer: followed by wound care DVT/GI PPx: Hep/Protonix Code Status: Full code. Will discuss with family regarding advanced directives Dispo: transfer to telemetry with dobutamine drip Case seen, examined and discussed with attending physician, Dr. Stephens <Adi Stephens - Last Filed: 12/17/17 15:40> CCU Objective - Vital Signs / Intake & Output Intake and Output (Last 8hrs): Intake & Output 12/17/17 12/17/17 12/17/17 06:59 14:59 22:59 Intake Total 132 250 Output Total 45 Balance 87 250 Weight 163 lb Intake: IV 132 250 Right Femoral 132 Output: Stool 45 Other: # Bowel Movements 1 - Medications Active Medications: Active Medications Generic Name Dose Route Start Last Admin Trade Name Freq PRN Reason Stop Dose Admin Acetylcysteine 4 ml 12/13/17 22:22 12/17/17 07:32 Acetylcysteine 20% IH 4 ml AUGUSTIN Administration Albuterol/Ipratropium 3 ml 12/08/17 14:37 12/13/17 04:44 Duoneb 3 Mg/0.5 Mg (3 Ml) Ud IH 3 ml Q2H PRN Administration Shortness of Breath Albuterol/Ipratropium 3 ml 12/16/17 11:30 12/17/17 11:32 Duoneb 3 Mg/0.5 Mg (3 Ml) Ud IH 3 ml [id number] AUGUSTIN Administration Arformoterol Tartrate 15 mcg 12/12/17 08:00 12/16/17 08:00 Brovana IH 15 mcg [id number] AUGUSTIN Administration Bisacodyl 10 mg 12/10/17 10:00 12/16/17 16:00 Dulcolax RC 10 mg DAILY AUGUSTIN Administration Budesonide 0.5 mg 12/12/17 08:00 12/17/17 07:33 Pulmicort Respules IH 0.5 mg [id number] AUGUSTIN Administration Diphenhydramine HCl 25 mg 12/11/17 15:33 12/17/17 07:56 Benadryl PO 25 mg Q8 PRN Administration Itching / Pruritus Heparin Sodium (Porcine) 5,000 units 12/08/17 22:00 12/17/17 07:57 Heparin SC 5,000 units Q12 AUGUSTIN Administration Protocol Hydrocortisone 0 gm 12/13/17 18:15 12/16/17 19:04 Anusol-Hc DE 1 cre BID AUGUSTIN Administration Dobutamine HCl/Dextrose 500 mg in 250 mls @ 11.09 mls/hr 12/16/17 08:58 12/17/17 09:21 Dobutamine/Dextrose 5% 500mg/250ml IV 5 mcg/kg/min .[id number] PRN 11.09 mls/hr TITRATE PER PROTOCOL Administration Protocol 5 MCG/KG/MIN Insulin Human Regular 0 units 12/17/17 08:15 12/17/17 09:00 Humulin R High SC 7 u Q6H AUGUSTIN Administration Protocol Lidocaine HCl 0 ea 12/16/17 18:00 Xylocaine 2% TOP BID AUGUSTIN Loratadine 10 mg 12/13/17 10:00 12/17/17 07:57 Claritin PO 10 mg DAILY AUGUSTIN Administration Methylprednisolone 20 mg 12/15/17 10:00 12/17/17 07:57 Solu-Medrol IVP 20 mg DAILY AUGUSTIN Administration Metoprolol Tartrate 25 mg 12/08/17 18:00 12/15/17 17:54 Lopressor PO Not Given BID AUGUSTIN Midodrine 10 mg 12/16/17 10:00 12/17/17 07:56 Proamatine PO 10 mg TID AUGUSTIN Administration Montelukast Sodium 10 mg 12/12/17 22:00 12/16/17 22:15 Singulair PO 10 mg HS AUGUSTIN Administration Nystatin 1 gm 12/16/17 18:00 12/16/17 19:04 Nystop Topical Powder TOP 1 applic BID AUGUSTIN Administration Pantoprazole Sodium 40 mg 12/12/17 07:30 12/17/17 07:56 Protonix Ec Tab PO 40 mg ACB AUGUSTIN Administration Sevelamer HCl 1,600 mg 12/09/17 14:00 12/17/17 07:54 Renagel PO 1,600 mg TID AUGUSTIN Administration Vitamin A 1 ea 12/15/17 17:50 12/17/17 06:36 Vitamin A & D Oint Ud Foilpak TOP 1 ea Q4H PRN Administration dry mouth area - Patient Studies Lab Studies: Microbiology Studies 12/15/17 20:30 Blood Culture - Preliminary Blood NO GROWTH AFTER 24 HOURS Lab Studies 12/17/17 12/17/17 12/17/17 Range/Units 14:40 11:26 08:40 WBC (4.5-11.0) 10^3/uL RBC (3.5-6.1) 10^6/uL Hgb (12.0-16.0) g/dL Hct (36.0-48.0) % MCV (80.0-105.0) fl MCH (25.0-35.0) pg MCHC (31.0-37.0) g/dl RDW (11.5-14.5) % Plt Count (120.0-450.0) 10^3/uL MPV (7.0-11.0) fl Gran % (50.0-68.0) % Lymph % (Auto) (22.0-35.0) % [place] % (Auto) (1.0-6.0) % Eos % (Auto) (1.5-5.0) % Baso % (Auto) (0.0-3.0) % Gran # (1.4-6.5) Lymph # (Auto) (1.2-3.4) [place] # (Auto) (0.1-0.6) Eos # (Auto) (0.0-0.7) Baso # (Auto) (0.0-2.0) K/mm3 pCO2 46 H (35-45) mm/Hg pO2 106.0 H (80-100) mm/Hg HCO3 22.6 (21-28) mmol/L ABG pH 7.30 L (7.35-7.45) ABG Total CO2 24.0 (22-28) mmol.L ABG O2 Saturation 98.9 H (95-98) % ABG O2 Content 16.0 (15-23) ML/dl ABG Base Excess -3.9 L (-2.0-3.0) mmol/L ABG Hemoglobin 11.8 (11.7-17.4) g/dL ABG Carboxyhemoglobin 2.0 H (0.5-1.5) % POC ABG HHb (Measured) 1.1 (0-5) % ABG Methemoglobin 1.1 (0.0-3.0) % ABG O2 Capacity 16.2 (16-24) mL/dl ABG Potassium (3.6-5.2) mmol/L Hgb O2 Saturation 95.8 (95.0-98.0) % Sodium (132-148) mmol/L Chloride (98-107) mmol/L Glucose (65-105) mg/dl Lactate (0.7-2.1) mmol/L FiO2 40.0 % Potassium (3.6-5.0) mmol/L Carbon Dioxide (21-33) mmol/L Anion Gap (10-20) BUN (7-21) mg/dL Creatinine (0.7-1.2) mg/dl Est GFR ( Amer) Est GFR (Non-Af Amer) POC Glucose (mg/dL) 356 H 353 H (65-110) mg/dL Random Glucose (70-110) mg/dL Calcium (8.4-10.5) mg/dL Phosphorus (2.5-4.5) mg/dL Magnesium (1.7-2.2) mg/dL Total Bilirubin (0.2-1.3) mg/dL AST (14-36) U/L ALT (7-56) U/L Alkaline Phosphatase (38-126) U/L Total Protein (5.8-8.3) g/dL Albumin (3.0-4.8) g/dL Globulin gm/dL Albumin/Globulin Ratio (1.1-1.8) Arterial Blood Potassium (3.6-5.2) mmol/L 12/17/17 12/17/17 12/17/17 Range/Units 07:17 06:15 06:15 WBC 8.3 (4.5-11.0) 10^3/uL RBC 3.14 L (3.5-6.1) 10^6/uL Hgb 11.2 L (12.0-16.0) g/dL Hct 35.8 L (36.0-48.0) % MCV 114.0 H D (80.0-105.0) fl MCH 35.7 H (25.0-35.0) pg MCHC 31.3 (31.0-37.0) g/dl RDW 17.6 H (11.5-14.5) % Plt Count 145 (120.0-450.0) 10^3/uL MPV 11.6 H (7.0-11.0) fl Gran % 79.6 H (50.0-68.0) % Lymph % (Auto) 9.7 L (22.0-35.0) % [place] % (Auto) 10.6 H (1.0-6.0) % Eos % (Auto) 0.1 L (1.5-5.0) % Baso % (Auto) 0.0 (0.0-3.0) % Gran # 6.64 H (1.4-6.5) Lymph # (Auto) 0.8 L (1.2-3.4) [place] # (Auto) 0.9 H (0.1-0.6) Eos # (Auto) 0.0 (0.0-0.7) Baso # (Auto) 0.00 (0.0-2.0) K/mm3 pCO2 (35-45) mm/Hg pO2 (80-100) mm/Hg HCO3 (21-28) mmol/L ABG pH (7.35-7.45) ABG Total CO2 (22-28) mmol.L ABG O2 Saturation (95-98) % ABG O2 Content (15-23) ML/dl ABG Base Excess (-2.0-3.0) mmol/L ABG Hemoglobin (11.7-17.4) g/dL ABG Carboxyhemoglobin (0.5-1.5) % POC ABG HHb (Measured) (0-5) % ABG Methemoglobin (0.0-3.0) % ABG O2 Capacity (16-24) mL/dl ABG Potassium (3.6-5.2) mmol/L Hgb O2 Saturation (95.0-98.0) % Sodium 134 (132-148) mmol/L Chloride 98 (98-107) mmol/L Glucose (65-105) mg/dl Lactate (0.7-2.1) mmol/L FiO2 % Potassium 3.9 (3.6-5.0) mmol/L Carbon Dioxide 23 (21-33) mmol/L Anion Gap 17 (10-20) BUN 70 H (7-21) mg/dL Creatinine 4.9 H (0.7-1.2) mg/dl Est GFR ( Amer) 10 Est GFR (Non-Af Amer) 9 POC Glucose (mg/dL) 276 H (65-110) mg/dL Random Glucose 300 H (70-110) mg/dL Calcium 8.8 (8.4-10.5) mg/dL Phosphorus 3.5 (2.5-4.5) mg/dL Magnesium 2.0 (1.7-2.2) mg/dL Total Bilirubin 0.8 (0.2-1.3) mg/dL AST 18 (14-36) U/L ALT 25 (7-56) U/L Alkaline Phosphatase 138 H (38-126) U/L Total Protein 6.4 (5.8-8.3) g/dL Albumin 3.1 (3.0-4.8) g/dL Globulin 3.3 gm/dL Albumin/Globulin Ratio 0.9 L (1.1-1.8) Arterial Blood Potassium (3.6-5.2) mmol/L 12/16/17 12/16/17 12/16/17 Range/Units 21:49 16:47 16:30 WBC (4.5-11.0) 10^3/uL RBC (3.5-6.1) 10^6/uL Hgb (12.0-16.0) g/dL Hct (36.0-48.0) % MCV (80.0-105.0) fl MCH (25.0-35.0) pg MCHC (31.0-37.0) g/dl RDW (11.5-14.5) % Plt Count (120.0-450.0) 10^3/uL MPV (7.0-11.0) fl Gran % (50.0-68.0) % Lymph % (Auto) (22.0-35.0) % [place] % (Auto) (1.0-6.0) % Eos % (Auto) (1.5-5.0) % Baso % (Auto) (0.0-3.0) % Gran # (1.4-6.5) Lymph # (Auto) (1.2-3.4) [place] # (Auto) (0.1-0.6) Eos # (Auto) (0.0-0.7) Baso # (Auto) (0.0-2.0) K/mm3 pCO2 48 H (35-45) mm/Hg pO2 65.0 L (80-100) mm/Hg HCO3 20.1 L (21-28) mmol/L ABG pH 7.23 L (7.35-7.45) ABG Total CO2 21.6 L (22-28) mmol.L ABG O2 Saturation 93.8 L (95-98) % ABG O2 Content (15-23) ML/dl ABG Base Excess -7.5 L (-2.0-3.0) mmol/L ABG Hemoglobin (11.7-17.4) g/dL ABG Carboxyhemoglobin (0.5-1.5) % POC ABG HHb (Measured) (0-5) % ABG Methemoglobin (0.0-3.0) % ABG O2 Capacity (16-24) mL/dl ABG Potassium 3.9 (3.6-5.2) mmol/L Hgb O2 Saturation (95.0-98.0) % Sodium 131.0 L (132-148) mmol/L Chloride 98.0 (98-107) mmol/L Glucose 255 H (65-105) mg/dl Lactate 1.2 (0.7-2.1) mmol/L FiO2 36.0 % Potassium (3.6-5.0) mmol/L Carbon Dioxide (21-33) mmol/L Anion Gap (10-20) BUN (7-21) mg/dL Creatinine (0.7-1.2) mg/dl Est GFR ( Amer) Est GFR (Non-Af Amer) POC Glucose (mg/dL) 315 H 248 H (65-110) mg/dL Random Glucose (70-110) mg/dL Calcium (8.4-10.5) mg/dL Phosphorus (2.5-4.5) mg/dL Magnesium (1.7-2.2) mg/dL Total Bilirubin (0.2-1.3) mg/dL AST (14-36) U/L ALT (7-56) U/L Alkaline Phosphatase (38-126) U/L Total Protein (5.8-8.3) g/dL Albumin (3.0-4.8) g/dL Globulin gm/dL Albumin/Globulin Ratio (1.1-1.8) Arterial Blood Potassium 3.9 (3.6-5.2) mmol/L 12/16/17 Range/Units 11:17 WBC (4.5-11.0) 10^3/uL RBC (3.5-6.1) 10^6/uL Hgb (12.0-16.0) g/dL Hct (36.0-48.0) % MCV (80.0-105.0) fl MCH (25.0-35.0) pg MCHC (31.0-37.0) g/dl RDW (11.5-14.5) % Plt Count (120.0-450.0) 10^3/uL MPV (7.0-11.0) fl Gran % (50.0-68.0) % Lymph % (Auto) (22.0-35.0) % [place] % (Auto) (1.0-6.0) % Eos % (Auto) (1.5-5.0) % Baso % (Auto) (0.0-3.0) % Gran # (1.4-6.5) Lymph # (Auto) (1.2-3.4) [place] # (Auto) (0.1-0.6) Eos # (Auto) (0.0-0.7) Baso # (Auto) (0.0-2.0) K/mm3 pCO2 (35-45) mm/Hg pO2 (80-100) mm/Hg HCO3 (21-28) mmol/L ABG pH (7.35-7.45) ABG Total CO2 (22-28) mmol.L ABG O2 Saturation (95-98) % ABG O2 Content (15-23) ML/dl ABG Base Excess (-2.0-3.0) mmol/L ABG Hemoglobin (11.7-17.4) g/dL ABG Carboxyhemoglobin (0.5-1.5) % POC ABG HHb (Measured) (0-5) % ABG Methemoglobin (0.0-3.0) % ABG O2 Capacity (16-24) mL/dl ABG Potassium (3.6-5.2) mmol/L Hgb O2 Saturation (95.0-98.0) % Sodium (132-148) mmol/L Chloride (98-107) mmol/L Glucose (65-105) mg/dl Lactate (0.7-2.1) mmol/L FiO2 % Potassium (3.6-5.0) mmol/L Carbon Dioxide (21-33) mmol/L Anion Gap (10-20) BUN (7-21) mg/dL Creatinine (0.7-1.2) mg/dl Est GFR ( Amer) Est GFR (Non-Af Amer) POC Glucose (mg/dL) 124 H (65-110) mg/dL Random Glucose (70-110) mg/dL Calcium (8.4-10.5) mg/dL Phosphorus (2.5-4.5) mg/dL Magnesium (1.7-2.2) mg/dL Total Bilirubin (0.2-1.3) mg/dL AST (14-36) U/L ALT (7-56) U/L Alkaline Phosphatase (38-126) U/L Total Protein (5.8-8.3) g/dL Albumin (3.0-4.8) g/dL Globulin gm/dL Albumin/Globulin Ratio (1.1-1.8) Arterial Blood Potassium (3.6-5.2) mmol/L Laboratory Results - last 24 hr 12/16/17 12/16/17 12/16/17 11:17 16:30 16:47 WBC RBC Hgb Hct MCV MCH MCHC RDW Plt Count MPV Gran % Lymph % (Auto) Putnam % (Auto) Eos % (Auto) Baso % (Auto) Gran # Lymph # (Auto) Putnam # (Auto) Eos # (Auto) Baso # (Auto) pCO2 48 H pO2 65.0 L HCO3 20.1 L ABG pH 7.23 L ABG Total CO2 21.6 L ABG O2 Saturation 93.8 L ABG O2 Content ABG Base Excess -7.5 L ABG Hemoglobin ABG Carboxyhemoglobin POC ABG HHb (Measured) ABG Methemoglobin ABG O2 Capacity ABG Potassium 3.9 Hgb O2 Saturation Sodium 131.0 L Chloride 98.0 Glucose 255 H Lactate 1.2 FiO2 36.0 Potassium Carbon Dioxide Anion Gap BUN Creatinine Est GFR ( Amer) Est GFR (Non-Af Amer) POC Glucose (mg/dL) 124 H 248 H Random Glucose Calcium Phosphorus Magnesium Total Bilirubin AST ALT Alkaline Phosphatase Total Protein Albumin Globulin Albumin/Globulin Ratio Arterial Blood Potassium 3.9 12/16/17 12/17/17 12/17/17 21:49 06:15 06:15 WBC 8.3 RBC 3.14 L Hgb 11.2 L Hct 35.8 L MCV 114.0 H D MCH 35.7 H MCHC 31.3 RDW 17.6 H Plt Count 145 MPV 11.6 H Gran % 79.6 H Lymph % (Auto) 9.7 L Putnam % (Auto) 10.6 H Eos % (Auto) 0.1 L Baso % (Auto) 0.0 Gran # 6.64 H Lymph # (Auto) 0.8 L Putnam # (Auto) 0.9 H Eos # (Auto) 0.0 Baso # (Auto) 0.00 pCO2 pO2 HCO3 ABG pH ABG Total CO2 ABG O2 Saturation ABG O2 Content ABG Base Excess ABG Hemoglobin ABG Carboxyhemoglobin POC ABG HHb (Measured) ABG Methemoglobin ABG O2 Capacity ABG Potassium Hgb O2 Saturation Sodium 134 Chloride 98 Glucose Lactate FiO2 Potassium 3.9 Carbon Dioxide 23 Anion Gap 17 BUN 70 H Creatinine 4.9 H Est GFR ( Amer) 10 Est GFR (Non-Af Amer) 9 POC Glucose (mg/dL) 315 H Random Glucose 300 H Calcium 8.8 Phosphorus 3.5 Magnesium 2.0 Total Bilirubin 0.8 AST 18 ALT 25 Alkaline Phosphatase 138 H Total Protein 6.4 Albumin 3.1 Globulin 3.3 Albumin/Globulin Ratio 0.9 L Arterial Blood Potassium 12/17/17 12/17/17 12/17/17 07:17 08:40 11:26 WBC RBC Hgb Hct MCV MCH MCHC RDW Plt Count MPV Gran % Lymph % (Auto) Putnam % (Auto) Eos % (Auto) Baso % (Auto) Gran # Lymph # (Auto) Putnam # (Auto) Eos # (Auto) Baso # (Auto) pCO2 46 H pO2 106.0 H HCO3 22.6 ABG pH 7.30 L ABG Total CO2 24.0 ABG O2 Saturation 98.9 H ABG O2 Content 16.0 ABG Base Excess -3.9 L ABG Hemoglobin 11.8 ABG Carboxyhemoglobin 2.0 H POC ABG HHb (Measured) 1.1 ABG Methemoglobin 1.1 ABG O2 Capacity 16.2 ABG Potassium Hgb O2 Saturation 95.8 Sodium Chloride Glucose Lactate FiO2 40.0 Potassium Carbon Dioxide Anion Gap BUN Creatinine Est GFR ( Amer) Est GFR (Non-Af Amer) POC Glucose (mg/dL) 276 H 353 H Random Glucose Calcium Phosphorus Magnesium Total Bilirubin AST ALT Alkaline Phosphatase Total Protein Albumin Globulin Albumin/Globulin Ratio Arterial Blood Potassium 12/17/17 14:40 WBC RBC Hgb Hct MCV MCH MCHC RDW Plt Count MPV Gran % Lymph % (Auto) Put[place] % (Auto) Eos % (Auto) Baso % (Auto) Gran # Lymph # (Auto) Putnam # (Auto) Eos # (Auto) Baso # (Auto) pCO2 pO2 HCO3 ABG pH ABG Total CO2 ABG O2 Saturation ABG O2 Content ABG Base Excess ABG Hemoglobin ABG Carboxyhemoglobin POC ABG HHb (Measured) ABG Methemoglobin ABG O2 Capacity ABG Potassium Hgb O2 Saturation Sodium Chloride Glucose Lactate FiO2 Potassium Carbon Dioxide Anion Gap BUN Creatinine Est GFR ( Amer) Est GFR (Non-Af Amer) POC Glucose (mg/dL) 356 H Random Glucose Calcium Phosphorus Magnesium Total Bilirubin AST ALT Alkaline Phosphatase Total Protein Albumin Globulin Albumin/Globulin Ratio Arterial Blood Potassium Critical Care Progress Note - Nutrition Nutrition: Nutrition Category Date Time Status Renal Diet [DIET] Diets 12/09/17 Lunch Ordered Attending/Attestation - Attestation I have personally seen and examined this patient.: Yes I have fully participated in the care of the patient.: Yes I have reviewed all pertinent clinical information: Yes Notes (Text): 12/17/17 15:[address] Stephens note
--- NOTE | 2017-12-17 15:15 | PN ---
DATE: 12/17/2017 SUBJECTIVE: The patient is seen in the ICU. Daughter is at bedside. The patient is awake, she is alert. She is responsive at this time. She denies any chest pain. She denies any shortness of breath. She denies any pain. She is visually impaired. She does not appear to be any kind of respiratory distress at this time. PHYSICAL EXAMINATION: GENERAL: Short, obese elderly lady lying in bed in the ICU. VITAL SIGNS: Blood pressure 135/56, heart rate 99, respiratory rate 23, temperature 98.2. HEENT: Normocephalic, atraumatic, positive pallor. NECK: Supple, no JVD. LUNGS: Bilateral equal air entry, bilateral equal expansion, no rales. CARDIAC: S1 and S2. Irregular rate and rhythm, no murmur, no rub. ABDOMEN: Obese, distended, soft, nontender, bowel sounds present. EXTREMITIES: A 1+ pitting edema of the lower extremities, 2+ pitting edema of the upper extremities. INTAKE AND OUTPUT: 432/45. LABORATORY DATA: WBC 8, hemoglobin 11, hematocrit 36, platelets 145. Sodium 134, potassium 3.9, chloride 98, CO2 of 23, BUN 70, creatinine 4.9, glucose 300, calcium 8.8, phosphorus 3.5, magnesium 2, albumin 3.1. CURRENT MEDICATIONS: Mucomyst, Anusol, Benadryl, Brovana, Claritin, dobutamine at 5 mcg per kg per minute, Dulcolax, DuoNeb, heparin, insulin, Lopressor 25 b.i.d. on hold, midodrine 10 t.i.d., Protonix, Renagel 1600 t.i.d., Singulair, Solu-Medrol, and Xylocaine. ASSESSMENT: 1. Recurrent, profound hypotension, currently on Dobutrex. 2. Possible right lower lobe pneumonia. 3. Preserved left ventricular ejection fraction, severe right-sided heart failure, pulmonary hypertension. 4. Coronary artery disease, history of percutaneous transluminal coronary angioplasty and stent. 5. End-stage renal disease. 6. Anemia of chronic kidney disease. 7. Secondary hyperparathyroidism. 8. Hyperphosphatemia. 9. [id number] diabetes mellitus. PLAN: 1. Continue Dobutrex especially during dialysis. 2. The patient is volume dependent because of her severe pulmonary hypertension/right-sided heart failure. Hence, blood pressure drops during dialysis. 3. Continue Solu-Medrol and respiratory treatments. 4. Monitor fingersticks and continue insulin coverage. 5. No evidence of deep venous thrombosis in the right upper extremity. 6. Ongoing challenge with blood pressure during dialysis. 7. Strict fluid restriction of 1500 mL per day. 8. Continue phosphate binders. 9. Continue Aranesp and Hectorol during dialysis. Case discussed with daughter and the patient at bedside at length, case discussed with dialysis staff, case discussed with ICU staff. More than 35 minutes spent in the care of this critically ill patient. Marlyn Snow MD
--- NOTE | 2017-12-17 16:45 | CP.PCM.PN ---
Subjective - Date & Time of Evaluation Date of Evaluation: 12/17/17 Time of Evaluation: 16:30 - Subjective Subjective: Infectious Disease Follow Up: December 17, 2017 72 yo Nigerian speaking female presenting to [facility] with back pain on sitting down. Patient was found to be hypotensive in ER. The patient has an extensive medical history that includes ESRD on HD, CAD, CHF with EF of 35%, occluded heart vessels, DM, HTN, and ischemic cardiomyopathy. The patient is unable to provide any additional information at this time. Blood pressure improved after 1L fluid bolus on admission. The patient is awake, alert, and orientated times 2 now. Received HD. She appears confused now. Maintained on nasal cannula with supplemental O2. The patient was hypotensive during HD yesterday and brought back to the MICU. The patient appears more fatigued than yesterday. She remains confused. No distress at this time. Objective - Vital Signs/Intake and Output Vital Signs (last 24 hours): Temp Pulse Resp BP Pulse Ox 98.2 F 97 H 23 135/56 L 100 12/17/17 06:00 12/17/17 07:36 12/17/17 07:00 12/17/17 07:00 12/17/17 07:00 Intake and Output: 12/17/17 12/17/17 06:59 18:59 Intake Total 132 250 Output Total 45 Balance 87 250 - Medications Medications: Current Medications Acetylcysteine (Acetylcysteine 20%) 4 ml IH 0800,2000 [facility] Last Admin: 12/17/17 07:32 Dose: 4 ml Albuterol/Ipratropium (Duoneb 3 Mg/0.5 Mg (3 Ml) Ud) 3 ml IH Q2H PRN PRN Reason: Shortness of Breath Last Admin: 12/13/17 04:44 Dose: 3 ml Albuterol/Ipratropium (Duoneb 3 Mg/0.5 Mg (3 Ml) Ud) 3 ml IH [id number] [facility] Last Admin: 12/17/17 16:18 Dose: 3 ml Arformoterol Tartrate (Brovana) 15 mcg IH [id number] [facility] Last Admin: 12/16/17 08:00 Dose: 15 mcg Bisacodyl (Dulcolax) 10 mg RC DAILY [facility] Last Admin: 12/16/17 16:00 Dose: 10 mg Budesonide (Pulmicort Respules) 0.5 mg IH [id number] [facility] Last Admin: 12/17/17 07:33 Dose: 0.5 mg Diphenhydramine HCl (Benadryl) 25 mg PO Q8 PRN PRN Reason: Itching / Pruritus Last Admin: 12/17/17 07:56 Dose: 25 mg Heparin Sodium (Porcine) (Heparin) 5,000 units SC Q12 [facility]; Protocol Last Admin: 12/17/17 07:57 Dose: 5,000 units Hydrocortisone (Anusol-Hc) 0 gm AL BID [facility] Last Admin: 12/16/17 19:04 Dose: 1 cre Dobutamine HCl/Dextrose (Dobutamine/Dextrose 5% 500mg/250ml) 500 mg in 250 mls @ 11.09 mls/hr IV .[id number] PRN; Protocol PRN Reason: TITRATE PER PROTOCOL Last Admin: 12/17/17 09:21 Dose: 5 mcg/kg/min, 11.09 mls/hr Insulin Human Regular (Humulin R High) 0 units SC Q6H [facility]; Protocol Last Admin: 12/17/17 09:00 Dose: 7 u Lidocaine HCl (Xylocaine 2%) 0 ea TOP BID [facility] Loratadine (Claritin) 10 mg PO DAILY [facility] Last Admin: 12/17/17 07:57 Dose: 10 mg Methylprednisolone (Solu-Medrol) 20 mg IVP DAILY [facility] Last Admin: 12/17/17 07:57 Dose: 20 mg Metoprolol Tartrate (Lopressor) 25 mg PO BID [facility] Last Admin: 12/15/17 17:54 Dose: Not Given Midodrine (Proamatine) 10 mg PO TID [facility] Last Admin: 12/17/17 07:56 Dose: 10 mg Montelukast Sodium (Singulair) 10 mg PO HS [facility] Last Admin: 12/16/17 22:15 Dose: 10 mg Nystatin (Nystop Topical Powder) 1 gm TOP BID [facility] Last Admin: 12/16/17 19:04 Dose: 1 applic Pantoprazole Sodium (Protonix Ec Tab) 40 mg PO ACB [facility] Last Admin: 12/17/17 07:56 Dose: 40 mg Sevelamer HCl (Renagel) 1,600 mg PO TID [facility] Last Admin: 12/17/17 07:54 Dose: 1,600 mg Vitamin A (Vitamin A & D Oint Ud Foilpak) 1 ea TOP Q4H PRN PRN Reason: dry mouth area Last Admin: 12/17/17 06:36 Dose: 1 ea - Labs Labs: 12/17/17 06:15 12/17/17 06:15 - Constitutional Appears: Confused, Chronically Ill - Head Exam Head Exam: ATRAUMATIC, NORMOCEPHALIC - Eye Exam Eye Exam: EOMI, PERRL Pupil Exam: NORMAL ACCOMODATION, PERRL - ENT Exam ENT Exam: Mucous Membranes Moist, Normal External Ear Exam, TM's Normal Bilaterally - Neck Exam Neck Exam: Full ROM, Normal Inspection - Respiratory Exam Respiratory Exam: Clear to Ausculation Bilateral, NORMAL BREATHING PATTERN. absent: Rales, Rhonchi, Wheezes - Cardiovascular Exam Cardiovascular Exam: REGULAR RHYTHM, RRR, +S1, +S2 - GI/Abdominal Exam GI & Abdominal Exam: Soft, Normal Bowel Sounds. absent: Distended, Tenderness - Extremities Exam Extremities Exam: Full ROM, Normal Inspection - Neurological Exam Neurological Exam: Alert, Awake, CN II-XII Intact, Oriented x3 Additional comments: Fatigued and confused - Psychiatric Exam Psychiatric exam: Normal Affect, Normal Mood - Skin Skin Exam: Intact, Normal Color Assessment and Plan - Assessment and Plan (Free Text) Assessment: 72 yo female known to me from previous hospitalizations to [facility]. The patient with initial complaint of back pain on sitting down . Found to be hypotensiive at this time. Antibiotics and fluids started. The patient is more awake and alert compared to admission. Blood pressure has improved with 1L of fluids. Started on Aztreonam for antibiotic coverage with single dose of Va ncomycin IV and Gentamicin IV. Nam cultures sent. No leukocytosis. Supportive care. If there is continued worsening, will have to consider use of Cefepime despite PCN allergy. Awaiting culture results. The patient is awake and alert now but still confused. The patient can follow commands. Not hypotensive at this time. Cultures with no growth at this time after 3 days. Maintain Broad antibiotic coverage at this time. No specific source of sepsis seen. Septic versus Cardiogenic shock on initial presentation. No specific infectious etiology found at this time. On Aztreonam at this time. Consider 7 to 10 days of antibiotics in total. More likely Cardiogenic in origin. Nearing completion of Aztreonam. The patient had hypotension in HD today and was brought back to MICU. Proca lcitonin during this hospitalization was 0.81 which is low for a septic picture. The patient completed 7 days of Aztreonam at this time. Stage II sacral decubiti dressed. Remains off of antibiotics. Thank you for allowing me to participate in the care of this patient, we will follow with you.
--- NOTE | 2017-12-17 22:52 | PN ---
DATE: 12/17/2017 PULMONARY CRITICAL CARE PROGRESS NOTE REFERRING PHYSICIAN: Dr. House SUBJECTIVE: She feels better, sleepy, arousable, just finished dialysis, able to take more than 2 liters of fluid out. No chest pain, no nausea, no vomiting, no diarrhea. Still has upper and lower extremity edema. OBJECTIVE: GENERAL: In no acute distress. VITAL SIGNS: She is afebrile, heart rate is 104, respiratory rate is 12, blood pressure 117/37, pulse ox 100% nasal cannula. HEENT: Moist mucous membranes. Crowded airway. NECK: Short thick neck. LUNGS: Has a prolonged expiratory phase. HEART: S1 and S2. ABDOMEN: Soft, nontender, no organomegaly. EXTREMITIES: Does have edema. NEUROLOGICAL: Sleepy, arousable. Follows simple command. MEDICATIONS: She is on Mucomyst 20% inhaled twice a day, Anusol rectally twice a day, Benadryl 25 mg every 8 hours p.r.n., Brovana inhaled twice a day, Claritin 10 mg daily, dobutamine IV drips, Dulcolax p.r.n. basis, DuoNeb every 2 hours p.r.n. and every 4 hours [id number], heparin 5000 units subcu every 12 hours, insulin coverage, metoprolol tartrate 25 mg twice a day, midodrine 10 mg three times a day, Protonix 40 mg before breakfast, Pulmicort inhaled twice a day, Renagel 600 mg three times a day, Singulair 10 mg at bedtime, Solu-Medrol 20 mg IV daily, vitamin A and D ointment to affected area. LABORATORY DATA: Shows hemoglobin 11.2, hematocrit 35.8, WBC 8.3, platelet count is 145. ABG show pH 7.3, pCO2 of 46, O2 of 106 that is on supplemental oxygen. Sodium 134, potassium 2.9, chloride 98, bicarbonate 23, BUN 70, creatinine 4.9, glucose 300, calcium 8.8, phosphorus 3.5, magnesium 2, AST 18, ALT 25, alk phos is 138. Albumin is 3.1. Microbiology; blood culture, nares culture, there is no growth. IMPRESSION AND PLAN: Respiratory failure, CO2 retention and hypoxemia which is much improved, still suspected hypoventilation syndrome and sleep apnea syndrome. We will continue encourage CPAP use at nighttime. Pulmonary hypertension, renal failure, dialysis dependent, cardiomyopathy, coronary artery disease, morbid obesity. Pulmonary point of view, improved. We will encourage to continue dobutamine for now, IV steroids, gastric prophylaxis, deep venous thrombosis prophylaxis. If possible, out of bed to chair. Avoid sedation. Follow up labs in the morning. Thank you and we will follow with you. Joss Arias MD
[2017-12-18 06:02] LABS: EOS # 0.1 (0.0-0.7); EOS % 0.9 % (1.5-5.0); GRAN # 6.05 (1.4-6.5); HEMOGLOBIN 11.7 g/dL (12.0-16.0); LYMPH # 0.8 (1.2-3.4); LYMPH % 10.4 % (22.0-35.0); MEAN CELL VOLUME 114.5 fl (80.0-105.0); MEAN CORPUSCULAR HEMOGLOBIN 36.1 pg (25.0-35.0); MEAN CORPUSCULAR HGB CONC 31.5 g/dl (31.0-37.0); MEAN PLATELET VOLUME 9.9 fl (7.0-11.0); MONO # 0.9 (0.1-0.6); MONO % 11.7 % (1.0-6.0); RBC 3.24 10^6/uL (3.5-6.1); RED CELL DISTRIBUTION WIDTH 18.1 % (11.5-14.5); WHITE BLOOD COUNT 7.9 10^3/uL (4.5-11.0)
[2017-12-18 06:10] LABS: ALB/GLOB RATIO 0.9 (1.1-1.8); CALCIUM 8.5 mg/dL (8.4-10.5)
[2017-12-18] MEDS: Insulin Reg-HIGH-Coverage SC SCH ×5 (06:11→22:06)
[2017-12-18] MEDS: Acetylcysteine 20% Inhal Soln (4ml) IH SCH ×2 (07:35→20:55)
[2017-12-18] MEDS: Albuterol-Ipratrop 3 mg / 0.5 (3 ml) UD IH SCH ×5 (07:35→23:55)
[2017-12-18] MEDS ORDERED: Potassium Chloride 20 mEq ER Tab PO STA (07:40)
[2017-12-18] MEDS ORDERED: Potassium Chloride 10 mEq ER Tab PO ONE (07:45)
[2017-12-18] MEDS: Pantoprazole 40 mg EC Tab PO SCH (07:59)
[2017-12-18] MEDS ORDERED: Potassium Chloride 20 mEq ER Tab PO ONE (08:03)
--- NOTE | 2017-12-18 08:35 | PN ---
DATE: 12/17/2017 SUBJECTIVE: The patient is seen and examined on 12/17/2017. I am dictating progress notes for 12/17/2017. Looking comfortable. More awake and alert, oriented x3. No fever. No chills. No headache. No dizziness. Tolerating her diet. No hematuria. No hematochezia. PHYSICAL EXAMINATION: VITAL SIGNS: Temperature 98.6, pulse 104, blood pressure 132/111, respiratory rate 11. HEENT: Head normocephalic, atraumatic. Eyes PERRLA. Extraocular muscles intact. Conjunctivae clear. Nose patent. Mucous membrane moist. NECK: Supple. No carotid bruit. No JVD. No thyromegaly. CHEST: Bilaterally symmetrical. HEART: S1 and S2 positive. LUNGS: Clear to auscultation. ABDOMEN: Soft. Bowel sounds positive. No organomegaly. EXTREMITIES: No edema. No cyanosis. NEUROLOGICAL: The patient is awake and alert. Moving all 4 extremities. No focal deficits. MEDICATIONS: Acetylcysteine, Anusol, Benadryl, Brovana, Claritin, dopamine drip, Dulcolax, DuoNeb, aspirin, metoprolol, midodrine, Protonix, Renagel, Singulair, Xylocaine. LABORATORY DATA: White blood cell is 8.3, hemoglobin 11.2, hematocrit 35.8, platelets 145. Sodium 135, potassium 3.9, BUN 70, creatinine 4.9, glucose of 356. ASSESSMENT AND PLAN: Ms. Debby Olguin, 72-year-old lady with anemia; renal insufficiency, on hemodialysis; hyperglycemia; hepatitis is negative; is still in the unit; status post coronary artery disease; end-stage renal disease, on hemodialysis; status post stent with LifeVest; pending automatic implantable cardioverter-defibrillator; hypertension, but now she came with hypotension; having hypercapnic respiratory acidosis. Getting treatment with BiPAP in the setting of pulmonary hypertension secondary to chronic obstructive pulmonary disease versus left ventricular diastolic dysfunction. Neurologist, Dr. Hensley is on the case. Seen by the group director experience also and drug safety physician. Continue Protonix for gastrointestinal prophylaxis. Infectious Disease, Dr. Gonzales is on the case. Has stage II sacral decubitus ulcer. Remains off the antibiotics. Repeat labs. We will follow up. Taylor House MD [facility] # [id number] MTDDamien
[2017-12-18] MEDS: Hydrocortisone 2.5% Rectal Cream(30 gm) PR SCH ×2 (09:38→17:33)
[2017-12-18] MEDS: Lidocaine 2% Jelly (30 ml) TOP SCH ×2 (09:39→17:36)
[2017-12-18] MEDS: Vitamins A & D Oint UD Foilpak TOP PRN (09:40)
[2017-12-18] MEDS: MethylPREDNISolone 40 mg Vial IVP SCH (09:40)
[2017-12-18] MEDS: Nystatin 100,000 Units/gm Topical Pow(15 gm) TOP SCH (11:02)
--- NOTE | 2017-12-18 15:17 | PN ---
DATE: 12/18/2017 SUBJECTIVE: The patient is seen lying in bed in the ICU. She complains of shortness of breath. She also complains of chest pain, but she appears comfortable in bed. Son is at bedside. She denies any chest tightness. She denies any nausea or vomiting. PHYSICAL EXAMINATION: GENERAL: Obese elderly lady lying in bed in the ICU. VITAL SIGNS: Blood pressure 124/57, heart rate 105, respiratory rate 24, temperature 98. HEENT: Normocephalic, atraumatic, positive pallor, no icterus. NECK: Supple LUNGS: Bilateral equal air entry, bilateral equal expansion, no rales appreciated anteriorly. CARDIAC: S1, S2, regular rate and rhythm, positive murmur, no rub. ABDOMEN: Obese, distended, soft, nontender, bowel sounds present. EXTREMITIES: Chronic stasis changes, 1+ pitting edema of the lower extremities, 2+ pitting edema of the upper extremities. SKIN: Hyperpigmented and shiny and hairless INTAKE AND OUTPUT: 915/3000?. LABORATORY DATA: WBC 7.9, hemoglobin 11.7, hematocrit 37, platelets 150. Sodium 132, potassium 3.2, chloride 100, CO2 of 27, BUN 35, creatinine 3.1, glucose 235, calcium 8.5, phosphorus 2.4, magnesium 1.9, albumin 3. Blood cultures, no growth. Right upper extremity ultrasound, no DVT. CURRENT MEDICATIONS: Mucomyst, Anusol, Benadryl, Brovana, Claritin, DuoNeb, insulin, Lopressor 25 b.i.d. on hold, ProAmatine 10 t.i.d., Protonix 40, Renagel 1600 t.i.d. potassium 20 mEq a given this morning. ASSESSMENT AND PLAN: 1. Coronary artery disease, congestive heart failure, preserved left ventricular systolic function, severe pulmonary hypertension. 2. Profound hypotension. 3. Non-insulin dependent diabetes mellitus. 4. End-stage renal disease. 5. Legally blind. 6. Respiratory failure, CO2 retention, hypoxemia. 7. Sleep apnea. 8. Secondary hyperparathyroidism. PLAN: 1. Currently, the patient is hypokalemic and hypophosphatemic, hold Renagel. 2. The patient has severe pulmonary hypertension, hence unable to tolerate fluid removal, so we will ultrafiltrate today for 2 hours to remove 2 kg. 3. Continue respiratory treatments and Solu-Medrol. 4. Monitor fingersticks. 5. Agree with potassium supplementation. 6. The patient will receive dialysis tomorrow, we will dialyze with potassium 4 bath. 7. ? continue ionotropic agents. Case discussed with son and the patient at bedside at length, case discussed with ICU nursing staff, case discussed with the dialysis nursing staff. More than 35 minutes spent in the care of this critically ill patient. Marlyn Snow MD
--- NOTE | 2017-12-18 18:39 | PN ---
DATE: 12/18/2017 REASON FOR CONSULTATION AND FOLLOWUP: Cardiac evaluation, admitted with COPD exacerbation, pneumonia, shortness of breath, status post removal of LifeVest, history of coronary artery disease, history of PTCA. SUBJECTIVE: Patient denies any chest pain, shortness of breath, or any palpitation. OBJECTIVE: GENERAL: Not in any apparent distress, lying flat in the bed. VITAL SIGNS: Temperature afebrile, heart rate 98, blood pressure 124/57. HEENT: PERRLA. Extraocular muscles intact. NECK: Supple. No carotid bruits or thyromegaly. CHEST: Clear to auscultation. HEART: S1 and S2 regular. ABDOMEN: Soft. EXTREMITIES: Clubbing and cyanosis negative. LABORATORY DATA: Blood workup as follows; WBC 7.9, hemoglobin 11.7, hematocrit 37.1 and platelet count 150. Chemistry shows sodium 136, potassium 3.2, chloride 100, carbon dioxide 27, anion gap of 30. BUN 35, creatinine 3.1. IMPRESSION: Hypokalemia, end-stage renal disease on hemodialysis, obesity, pneumonia, history of coronary artery disease status post percutaneous transluminal coronary angioplasty in the past five years ago, status post removal of LifeVest, preserved left ventricular function, mitral regurgitation, tricuspid regurgitation, had recent echocardiogram shows ejection fraction 50%, obesity, diabetes, hypertension, hyperlipidemia, pneumonia. RECOMMENDATIONS: Continue DVT prophylaxis, supplement potassium only 20 mEq because the patient has end-stage renal disease. To prevent any tachyarrhythmia or bradyarrhythmia, the patient has been started on low dose of Dobutrex by heel seat fitter. Continue DVT prophylaxis. Continue low-dose beta-rossana as tolerated. We will follow with you. Thank you, Dr. House, for providing us the opportunity in taking care of [place] Sharif. Joss Bah MD
--- NOTE | 2017-12-18 19:17 | CP.PCM.PN ---
Subjective - Date & Time of Evaluation Date of Evaluation: 12/18/17 Time of Evaluation: 18:00 - Subjective Subjective: Infectious Disease Follow Up: December 18, 2017 72 yo Hungarian speaking female presenting to [facility] with back pain on sitting down. Patient was found to be hypotensive in ER. The patient has an extensive medical history that includes ESRD on HD, CAD, CHF with EF of 35%, occluded heart vessels, DM, HTN, and ischemic cardiomyopathy. The patient is unable to provide any additional information at this time. Blood pressure improved after 1L fluid bolus on admission. The patient is awake, alert, and orientated times 2 to 3 now. Maintained on nasal cannula with supplemental O2. The patient was hypotensive during an HD treatment that led to the patient being brought back to the MICU. The patient is awake and alert. Periods of confusion noted which does occur on this patient. No distress at this time. The patient is legally blind. Objective - Vital Signs/Intake and Output Vital Signs (last 24 hours): Temp Pulse Resp BP Pulse Ox 97.5 F L 93 H 17 115/62 100 12/18/17 16:00 12/18/17 18:30 12/18/17 18:30 12/18/17 18:30 12/18/17 18:30 Intake and Output: 12/18/17 12/19/17 18:59 06:59 Intake Total 930 Output Total 1999 Balance -1070 - Medications Medications: Current Medications Acetylcysteine (Acetylcysteine 20%) 4 ml IH 0800,1999 [facility] Last Admin: 12/18/17 07:35 Dose: 4 ml Albuterol/Ipratropium (Duoneb 3 Mg/0.5 Mg (3 Ml) Ud) 3 ml IH Q2H PRN PRN Reason: Shortness of Breath Last Admin: 12/13/17 04:44 Dose: 3 ml Albuterol/Ipratropium (Duoneb 3 Mg/0.5 Mg (3 Ml) Ud) 3 ml IH [id number] [facility] Last Admin: 12/18/17 15:15 Dose: 3 ml Arformoterol Tartrate (Brovana) 15 mcg IH [id number] [facility] Last Admin: 12/16/17 08:00 Dose: 15 mcg Bisacodyl (Dulcolax) 10 mg RC DAILY [facility] Last Admin: 12/18/17 12:45 Dose: Not Given Budesonide (Pulmicort Respules) 0.5 mg IH [id number] [facility] Last Admin: 12/17/17 07:33 Dose: 0.5 mg Diphenhydramine HCl (Benadryl) 25 mg PO Q8 PRN PRN Reason: Itching / Pruritus Last Admin: 12/17/17 18:50 Dose: 25 mg Heparin Sodium (Porcine) (Heparin) 5,000 units SC Q12 [facility]; Protocol Last Admin: 12/18/17 09:41 Dose: 5,000 units Hydrocortisone (Anusol-Hc) 0 gm NC BID [facility] Last Admin: 12/18/17 17:33 Dose: 1 cre Dobutamine HCl/Dextrose (Dobutamine/Dextrose 5% 500mg/250ml) 500 mg in 250 mls @ 11.09 mls/hr IV .[id number] PRN; Protocol PRN Reason: TITRATE PER PROTOCOL Last Admin: 12/17/17 09:21 Dose: 5 mcg/kg/min, 11.09 mls/hr Insulin Human Regular (Humulin R High) 0 units SC ACHS [facility]; Protocol Last Admin: 12/18/17 17:35 Dose: 7 u Lidocaine HCl (Xylocaine 2%) 0 ea TOP BID [facility] Last Admin: 12/18/17 17:36 Dose: 1 applic Loratadine (Claritin) 10 mg PO DAILY [facility] Last Admin: 12/18/17 09:41 Dose: 10 mg Methylprednisolone (Solu-Medrol) 20 mg IVP DAILY [facility] Last Admin: 12/18/17 09:40 Dose: 20 mg Metoprolol Tartrate (Lopressor) 25 mg PO BID [facility] Last Admin: 12/15/17 17:54 Dose: Not Given Midodrine (Proamatine) 10 mg PO TID [facility] Last Admin: 12/18/17 17:29 Dose: 10 mg Montelukast Sodium (Singulair) 10 mg PO HS [facility] Last Admin: 12/17/17 22:10 Dose: 10 mg Nystatin (Nystop Topical Powder) 1 gm TOP BID [facility] Last Admin: 12/18/17 11:02 Dose: 1 applic Pantoprazole Sodium (Protonix Ec Tab) 40 mg PO ACB [facility] Last Admin: 12/18/17 07:59 Dose: 40 mg Sevelamer HCl (Renagel) 1,600 mg PO TID [facility] Last Admin: 12/18/17 09:41 Dose: 1,600 mg Vitamin A (Vitamin A & D Oint Ud Foilpak) 1 ea TOP Q4H PRN PRN Reason: dry mouth area Last Admin: 12/18/17 09:40 Dose: 1 ea - Labs Labs: 12/18/17 05:45 12/18/17 05:45 - Constitutional Appears: Confused, Chronically Ill - Head Exam Head Exam: ATRAUMATIC, NORMOCEPHALIC - Eye Exam Eye Exam: EOMI, PERRL Pupil Exam: NORMAL ACCOMODATION, PERRL Additional comments: legally blind. - ENT Exam ENT Exam: Mucous Membranes Moist, Normal External Ear Exam, TM's Normal Bilaterally - Neck Exam Neck Exam: Full ROM, Normal Inspection - Respiratory Exam Respiratory Exam: Clear to Ausculation Bilateral, NORMAL BREATHING PATTERN. absent: Rales, Rhonchi, Wheezes - Cardiovascular Exam Cardiovascular Exam: REGULAR RHYTHM, RRR, +S1, +S2 - GI/Abdominal Exam GI & Abdominal Exam: Soft, Normal Bowel Sounds. absent: Distended, Tenderness - Extremities Exam Extremities Exam: Full ROM, Normal Inspection - Neurological Exam Neurological Exam: Alert, Awake, CN II-XII Intact, Oriented x3 Additional comments: Periods of confusion - Psychiatric Exam Psychiatric exam: Normal Affect, Normal Mood - Skin Skin Exam: Intact, Normal Color Assessment and Plan - Assessment and Plan (Free Text) Assessment: 72 yo female known to me from previous hospitalizations to [facility]. The patient with initial complaint of back pain on sitting down . Found to be hypotensiive at this time. Antibiotics and fluids started. The patient is more awake and alert compared to admission. Blood pressure has improved with 1L of fluids. Started on Aztreonam for antibiotic coverage with single dose of Vancomycin IV and Gentamicin IV. Nam cultures sent. No leukocytosis. Supportive care. If there is continued worsening, will have to consider use of Cefepime despite PCN allergy. Awaiting culture results. The patient is awake and alert now but still confused. The patient can follow commands. Not hypotensive at this time. Cultures with no growth at this time after 3 days. Maintain Broad antibiotic coverage at this time. No specific source of sepsis seen. Septic versus Cardiogenic shock on initial presentation. No specific infectious etiology found at this time. On Aztreonam at this time. Consider 7 to 10 days of antibiotics in total. More likely Cardiogenic in origin. Nearing completion of Aztreonam. The patient had hypotension in HD today and was brought back to MICU. Procalcitonin during this hospitalization was 0.81 which is low for a septic picture. The patient completed 7 days of Aztreonam at this time. Stage II sacral decubiti dressed. Remains off of antibiotics. Thank you for allowing me to participate in the care of this patient, we will follow with you.
[2017-12-18] MEDS: Budesonide 0.5 mg/2 ml Inhal Susp UD IH SCH (20:56)
--- NOTE | 2017-12-18 23:18 | PN ---
DATE: 12/18/2017 PULMONARY PROGRESS NOTE REFERRING PHYSICIAN: Dr. House SUBJECTIVELY: She is lying in the bed head of 45 degrees on nasal cannula, tolerated BiPAP well. Feels better. Decreased cough and shortness of breath. No chest pain. No nausea, no vomiting, no diarrhea. Does have upper and lower extremity trace swelling. OBJECTIVE: GENERAL: In no acute distress. VITAL SIGNS: Temp is 98, heart rate is 99, respiratory rate is 18, blood pressure 115/62, pulse ox 100% on nasal cannula. HEENT: Moist mucous membranes. Small oral cavity. Crowded airway. NECK: Supple. No JVD. LUNGS: Have a prolonged expiratory phase. HEART: S1 and S2. ABDOMEN: Soft, nontender. No organomegaly. EXTREMITIES: Does have trace edema. NEUROLOGIC: Awake and alert. Follows simple command. MEDICATIONS: She is on Mucomyst 20% inhaled twice a day, Anusol rectally twice a day, Benadryl p.r.n. basis, Brovana inhaled twice a day, Claritin 10 mg daily, Dulcolax 10 mg rectally daily, albuterol/Atrovent nebulizer every 2 hours p.r.n. and every 4 hours [id number], heparin 5000 units subcu every 2 hours, metoprolol tartrate 25 mg twice a day, nystatin topical twice a day, midodrine 10 mg three times a day, Protonix is a 40 mg before breakfast, Pulmicort inhaled twice a day, Renagel 600 mg three times a day, Singulair 10 mg daily, Solu-Medrol 20 mg daily, vitamin A and D every 4 hours p.r.n., lidocaine gel is b.i.d. LABORATORY DATA: Shows hemoglobin 11.7, hematocrit 37.1, WBC 7.9, platelet count is 150. Sodium 136, potassium 3.2, chloride 100, bicarbonate 27, BUN 35, creatinine 3.1, glucose 235, calcium is 8.5, phosphorus 2.4, magnesium 1.9, AST 21, ALT 24, alk phos is 140. Albumin is 3. Microbiology, blood culture has been no growth. IMPRESSION AND PLAN: Respiratory failure with CO2 retention, hypoxemia, presently much improved on nasal cannula during the daytime, suspected hypoventilation syndrome and sleep apnea syndrome, has a renal failure, dialysis dependent, pulmonary hypertension, cardiomyopathy, coronary artery disease. Pulmonary point of view, doing okay. Continue bronchodilator. Keep head at 45 degrees. Antibiotics as Infectious Diseases. Gastric prophylaxis, DVT prophylaxis. We will discontinue Solu-Medrol, place her on prednisone 10 mg daily, taper off very slowly, may have adrenal insufficiency. Thank you and we will follow with you. Joss Arias MD
--- NOTE | 2017-12-19 02:46 | PN ---
DATE: 12/18/2017 SUBJECTIVE: The patient is a 72-year-old female. The patient was seen and examined at the bedside on 12/18/2017. No fever. No chills. No hematuria or hematochezia. Awake and alert. No nausea, vomiting or diarrhea. No headache. No dizziness. No chest pain or palpitation. PHYSICAL EXAMINATION VITAL SIGNS: Blood pressure 124/57, respiratory rate 18, heart rate 105, temperature 98. HEENT: Head: Normocephalic, atraumatic. Eyes: PERRLA. Extraocular muscles intact. Conjunctivae clear. Nose: Patent. NECK: Supple. No carotid bruit. No JVD or thyromegaly. CHEST: Bilaterally symmetrical. HEART: S1 and S2 positive. LUNGS: Clear to auscultation. ABDOMEN: Soft. Bowel sounds present. No organomegaly. EXTREMITIES: No edema. No cyanosis. NEUROLOGICAL: The patient is awake and alert. Follows simple commands. LABORATORY DATA: White blood cells 7.9, hemoglobin 11.7, hematocrit 37, platelets 150. Sodium 132, potassium 3.2, BUN 34, creatinine 3.1, glucose 235. ASSESSMENT AND PLAN: Ms. Debby Olguin is a 72-year-old female with coronary artery disease, congestive heart failure, preserved left ventricular systolic function and severe pulmonary hypertension, profound hypotension, [id number] diabetes mellitus, end-stage renal disease, legally blind, respiratory failure, carbon dioxide retention, hypoxemia, sleep apnea, secondary hyperparathyroidism and electrolyte imbalance, fixed that. The patient has pulmonary hypertension hypotension, hence unable to tolerate fluid removal, so we will ultrafiltrate today as per Dr. Snow ,Continue respiratory treatment and Solu-Medrol, fingerstick and sliding scale. Continue inotropic agent. Discussion done with the patient and the patient's family and the nursing staff. Meanwhile, continue Mucomyst, Benadryl, Brovana, Claritin, DuoNeb, Lopressor, protamine and Protonix. Gastrointestinal and deep venous thrombosis prophylaxis. Repeat labs. Taylor House MD ESDRAS
[2017-12-19] MEDS: Albuterol-Ipratrop 3 mg / 0.5 (3 ml) UD IH SCH ×5 (04:05→20:15)
[2017-12-19 07:12] LABS: EOS # 0.1 (0.0-0.7); EOS % 0.9 % (1.5-5.0); GRAN # 5.45 (1.4-6.5); GRAN % 77.7 % (50.0-68.0); LYMPH # 0.7 (1.2-3.4); LYMPH % 10.3 % (22.0-35.0); MEAN CELL VOLUME 116.7 fl (80.0-105.0); MEAN CORPUSCULAR HEMOGLOBIN 36.4 pg (25.0-35.0); MEAN CORPUSCULAR HGB CONC 31.2 g/dl (31.0-37.0); MEAN PLATELET VOLUME 11.1 fl (7.0-11.0); MONO # 0.8 (0.1-0.6); MONO % 11.1 % (1.0-6.0); RBC 3.3 10^6/uL (3.5-6.1); RED CELL DISTRIBUTION WIDTH 18.6 % (11.5-14.5)
[2017-12-19] MEDS: Budesonide 0.5 mg/2 ml Inhal Susp UD IH SCH ×2 (07:20→20:15)
[2017-12-19] MEDS: Acetylcysteine 20% Inhal Soln (4ml) IH SCH ×2 (07:20→20:15)
[2017-12-19 07:35] LABS: ALB/GLOB RATIO 0.9 (1.1-1.8); CALCIUM 8.9 mg/dL (8.4-10.5)
[2017-12-19] MEDS: Hydrocortisone 2.5% Rectal Cream(30 gm) PR SCH ×2 (10:00→18:35)
[2017-12-19] MEDS: Pantoprazole 40 mg EC Tab PO SCH (10:51)
[2017-12-19] MEDS: Nystatin 100,000 Units/gm Topical Pow(15 gm) TOP SCH ×2 (10:52→18:17)
[2017-12-19] MEDS: Lidocaine 2% Jelly (30 ml) TOP SCH ×2 (10:54→18:17)
[2017-12-19] MEDS: Insulin Reg-HIGH-Coverage SC SCH ×4 (10:56→22:18)
--- NOTE | 2017-12-19 15:14 | CP.PCM.PN ---
Subjective - Date & Time of Evaluation Date of Evaluation: 12/19/17 Time of Evaluation: 14:00 - Subjective Subjective: Infectious Disease Follow Up: December 19, 2017 72 yo Ethiopian speaking female presenting to [facility] with back pain on sitting down. Patient was found to be hypotensive in ER. The patient has an extensive medical history that includes ESRD on HD, CAD, CHF with EF of 35%, occluded heart vessels, DM, HTN, and ischemic cardiomyopathy. The patient is unable to provide any additional information at this time. Blood pressure improved after 1L fluid bolus on admission. The patient is awake, alert, and orientated times 2 to 3 now. Maintained on nasal cannula with supplemental O2. The patient was hypotensive during an HD treatment that led to the patient being brought back to the MICU. The patient is awake and alert. Periods of confusion noted which does occur on this patient. No distress at this time. The patient is legally blind. Back on regular medical floor. Objective - Vital Signs/Intake and Output Vital Signs (last 24 hours): Temp Pulse Resp BP Pulse Ox 98.6 F 95 H 19 110/55 L 97 12/19/17 12:00 12/19/17 12:00 12/19/17 12:00 12/19/17 12:00 12/19/17 06:00 Intake and Output: 12/19/17 12/19/17 06:59 18:59 Intake Total 120 Balance 120 - Medications Medications: Current Medications Acetylcysteine (Acetylcysteine 20%) 4 ml IH 0800,1999 [facility] Last Admin: 12/18/17 20:55 Dose: 4 ml Albuterol/Ipratropium (Duoneb 3 Mg/0.5 Mg (3 Ml) Ud) 3 ml IH Q2H PRN PRN Reason: Shortness of Breath Last Admin: 12/13/17 04:44 Dose: 3 ml Albuterol/Ipratropium (Duoneb 3 Mg/0.5 Mg (3 Ml) Ud) 3 ml IH [id number] [facility] Last Admin: 12/19/17 10:43 Dose: 3 ml Arformoterol Tartrate (Brovana) 15 mcg IH [id number] [facility] Last Admin: 12/16/17 08:00 Dose: 15 mcg Bisacodyl (Dulcolax) 10 mg RC DAILY [facility] Last Admin: 12/19/17 10:53 Dose: 10 mg Budesonide (Pulmicort Respules) 0.5 mg IH [id number] [facility] Last Admin: 12/19/17 07:20 Dose: 0.5 mg Diphenhydramine HCl (Benadryl) 25 mg PO Q8 PRN PRN Reason: Itching / Pruritus Last Admin: 12/17/17 18:50 Dose: 25 mg Heparin Sodium (Porcine) (Heparin) 5,000 units SC Q12 [facility]; Protocol Last Admin: 12/19/17 10:56 Dose: 5,000 units Hydrocortisone (Anusol-Hc) 0 gm AR BID [facility] Last Admin: 12/18/17 17:33 Dose: 1 cre Insulin Human Regular (Humulin R High) 0 units SC ACHS [facility]; Protocol Last Admin: 12/19/17 11:30 Dose: Not Given Lidocaine HCl (Xylocaine 2%) 0 ea TOP BID [facility] Last Admin: 12/19/17 10:54 Dose: 1 applic Loratadine (Claritin) 10 mg PO DAILY [facility] Last Admin: 12/19/17 10:54 Dose: 10 mg Metoprolol Tartrate (Lopressor) 25 mg PO BID [facility] Last Admin: 12/15/17 17:54 Dose: Not Given Midodrine (Proamatine) 10 mg PO TID [facility] Last Admin: 12/19/17 11:01 Dose: 10 mg Montelukast Sodium (Singulair) 10 mg PO HS [facility] Last Admin: 12/18/17 21:24 Dose: 10 mg Nystatin (Nystop Topical Powder) 1 gm TOP BID [facility] Last Admin: 12/19/17 10:52 Dose: 1 applic Pantoprazole Sodium (Protonix Ec Tab) 40 mg PO ACB [facility] Last Admin: 12/19/17 10:51 Dose: 40 mg Prednisone (Prednisone Tab) 10 mg PO DAILY [facility] Last Admin: 12/19/17 10:51 Dose: 10 mg Sevelamer HCl (Renagel) 1,600 mg PO TID [facility] Last Admin: 12/18/17 09:41 Dose: 1,600 mg Vitamin A (Vitamin A & D Oint Ud Foilpak) 1 ea TOP Q4H PRN PRN Reason: dry mouth area Last Admin: 12/18/17 09:40 Dose: 1 ea - Labs Labs: 12/19/17 06:30 12/19/17 06:30 - Constitutional Appears: Confused, Chronically Ill - Head Exam Head Exam: ATRAUMATIC, NORMOCEPHALIC - Eye Exam Additional comments: legally blind. - ENT Exam ENT Exam: Mucous Membranes Moist, Normal External Ear Exam, TM's Normal Bilaterally - Neck Exam Neck Exam: Full ROM, Normal Inspection - Respiratory Exam Respiratory Exam: Clear to Ausculation Bilateral, NORMAL BREATHING PATTERN. absent: Rales, Rhonchi, Wheezes - Cardiovascular Exam Cardiovascular Exam: REGULAR RHYTHM, RRR, +S1, +S2 - GI/Abdominal Exam GI & Abdominal Exam: Soft, Normal Bowel Sounds. absent: Distended, Tenderness - Extremities Exam Extremities Exam: Full ROM, Normal Inspection - Neurological Exam Neurological Exam: Alert, Awake, CN II-XII Intact, Oriented x3 Additional comments: Periods of confusion. - Psychiatric Exam Psychiatric exam: Normal Affect, Normal Mood - Skin Skin Exam: Intact, Normal Color Assessment and Plan - Assessment and Plan (Free Text) Assessment: 72 yo female known to me from previous hospitalizations [place] [facility] The patient with initial complaint of back pain on sitting down . Found to be hypo tensiive at this time. Antibiotics and fluids started. The patient is more awake and alert compared to admission. Blood pressure has improved with 1L of fluids. Started on Aztreonam for antibiotic coverage with single dose of Vancomycin IV and Gentamicin IV. Nam cultures sent. No leukocytosis. Supportive care. If there is continued worsening, will have to consider use of Cefepime despite P CN allergy. Awaiting culture results. The patient is awake and alert now but still confused. The patient can follow commands. Not hypotensive at this time. Cultures with no growth at this time after 3 days. Maintain Broad antibiotic coverage at this time. No specific source of sepsis seen. Septic versus Cardiogenic shock on initial presentation. No specific infectious etiology found at this time. On Aztreonam at this time. Consider 7 to 10 days of antibiotics in total. More likely Cardiogenic in origin. Nearing completion of Aztreonam. The patient had hypotension in HD today and was brought back to MICU. Procalcitonin during this hospitalization was 0.81 which is low for a septic picture. The patient completed 7 days of Aztreonam at this time. Stage II sacral decubiti dressed. No leukocytosis. Patient appears to be at her baseline mental and physical status. Remains off of antibiotics. Thank you for allowing me to participate in the care of this patient, we will fo llow with you.
--- NOTE | 2017-12-19 16:58 | PN ---
DATE: 12/19/2017 SUBJECTIVE: The patient is seen in the dialysis unit. She is awake. She is alert. She is comfortable. She denies any chest pain. She denies any shortness of breath. She complains of rectal pain. PHYSICAL EXAMINATION GENERAL: Elderly lady, lying in bed. VITAL SIGNS: Blood pressure 110/55, heart rate 95, respiratory rate 20, temperature 98.6. HEENT: Normocephalic, atraumatic, positive pallor. NECK: Supple, no JVD. LUNGS: Bilateral equal air entry, bilateral equal expansion, no rales. CARDIAC: S1 and S2, regular rate and rhythm, no murmur, no rub. ABDOMEN: Obese, distended, soft, nontender, bowel sounds present. EXTREMITIES: 1+ pitting edema of the lower extremities. INTAKE AND OUTPUT: Not charted. LABORATORY DATA: WBC 7, hemoglobin 12, hematocrit 38.5, platelets 182. Sodium 136, potassium 4.1, chloride 99, CO2 of 27, BUN 43, creatinine 3.9, glucose 182, calcium 8.9, phosphorus 3.8, AST 23, ALT 24, albumin 3. CURRENT MEDICATIONS: Mucomyst, Anusol, Benadryl, Brovana, Claritin, Dulcolax, DuoNeb, Lopressor 25 b.i.d. on hold, prednisone 10, ProAmatine 10 t.i.d., Protonix, Pulmicort, Renagel 1600 t.i.d., Singulair, lidocaine. ASSESSMENT: 1. Status post severe profound hypotension. 2. Status post respiratory acidosis/altered mental status. 3. Possible right lower lobe pneumonia. 4. End-stage renal disease. 5. Cardiomyopathy, history of ventricular tachycardia. 6. Noninsulin-dependent diabetes mellitus. 7. Anemia of chronic kidney disease. 8. Secondary hyperparathyroidism. PLAN: 1. Stable dialysis. 2. Continue ProAmatine. 3. Restart Renagel. 4. Discharge planning? Marlyn Snow MD
--- NOTE | 2017-12-19 21:08 | PN ---
DATE: 12/19/2017 REFERRING PHYSICIAN: Taylor House MD SUBJECTIVE: She is lying in the dialysis bed, doing well. Night was unremarkable, tolerated BiPAP well. No headache. No rhinitis. No cough. No sputum production. No nausea, no vomiting, no diarrhea. Does have some upper and lower extremity swelling. OBJECTIVE GENERAL: In no acute distress. VITAL SIGNS: Temperature is 99, heart rate 95, respiratory rate is 18, blood pressure 109/49, pulse ox 97% nasal cannula. HEENT: Small oral cavity. Crowded airway. Short thick neck. LUNGS: Prolonged expiratory phase. HEART: S1 and S2. ABDOMEN: Soft, nontender. No organomegaly. EXTREMITIES: There is no edema. NEUROLOGIC: Awake and alert. Follows simple command. She is legally blind. MEDICATIONS: She is on Mucomyst inhale twice a day, Anusol p.r.n. basis, Benadryl 25 mg every 8 hours p.r.n., Brovana inhale twice a day, Claritin 10 mg daily Dulcolax 10 mg rectally, also DuoNeb every 2 hours p.r.n. and every 4 hours [id number], heparin 5000 units subcu every 8 hours, insulin coverage, metoprolol tartrate 25 mg twice a day, nystatin affected area twice a day, prednisone 10 mg daily, midodrine 10 mg three times a day, Protonix 40 mg daily, budesonide inhale twice a day, Renagel 600 mg two times a day, Singulair 10 mg daily, vitamin A and D every 4 hours p.r.n. LABORATORY DATA: Shows hemoglobin 12.0, hematocrit 38.5, WBC 7.0, platelet count is 182. Sodium 136, potassium 4.1, chloride 99, bicarbonate 27, BUN 43, creatinine 3.9, glucose 182, calcium 8.9, phosphorus 3.8, AST 23, ALT 24, alk phos is 131. Albumin is 3.0. Microbiology, blood culture and nares culture, so far, there is no growth. IMPRESSION: Status post respiratory failure with CO2 retention; hypoxemia, presently on nasal cannula; renal failure, dialysis dependent; daytime hypersomnia; hypoventilation syndrome; pulmonary hypertension; cardiomyopathy; coronary artery disease. Pulmonary point of view, doing well. Continue supplemental oxygen titer, FiO2 to pulse ox 90. BiPAP use at nighttime, p.o. and inhale bronchodilator, gastric prophylaxis. Out of bed to chair, physical therapy. Fall precaution. Thank you and we will follow with you. Joss Arias MD
--- NOTE | 2017-12-19 22:04 | PN ---
DATE: 12/19/2017 REASON FOR CONSULTATION AND FOLLOWUP: Cardiac evaluation, admitted with COPD exacerbation, pneumonia, shortness of breath, status post removal of LifeVest, history of coronary artery disease, and history of PTCA. SUBJECTIVE: The patient denies any chest pain or shortness of breath. PHYSICAL EXAMINATION: GENERAL: Lying flat in the bed, not in apparent distress. VITAL SIGNS: As follows; temperature afebrile, heart rate 95, and blood pressure 110/95. HEENT: PERRLA. Extraocular muscles are intact. NECK: Supple. No carotid bruits. No thyromegaly. CHEST: Clear to auscultation. HEART: S1 and S2 regular. ABDOMEN: Soft. EXTREMITIES: Clubbing and cyanosis negative. LABORATORY DATA: Blood workup as follows; WBC 7, hemoglobin 12, hematocrit 38.5, and platelet count 182. Chemistry shows sodium 130, potassium 4, chloride 99, , anion gap 14, BUN 43, and creatinine 3.9. IMPRESSION: A 72-year-old female with past medical history significant for diabetes; ; hyperlipidemia; end-stage renal disease, on dialysis admitted for sepsis, pneumonia, and respiratory distress. Recently, the patient automatic implantable cardioverter-defibrillator could not bearing because of possible pulmonary edema, as per family was on LifeVest. Repeat echocardiogram done, preserved left ventricular function, LifeVest battery also ran out and will be discontinued. The patient now is stable from Cardiology point of view. No arrhythmia noted. RECOMMENDATIONS: Continue low-dose beta-rossaan. Continue dialysis. Continue DVT prophylaxis. Monitor electrolytes. Discharge planning. The patient will follow up with Dr. Tuttle, extension supervisor and Dr. Motta and Dr. Sussy De La O. The patient is converted to normal sinus, repeat EKG in the morning. Thank you Dr. House for providing us the opportunity in taking care of the patient, Debby Olguin. Joss Bah MD
--- NOTE | 2017-12-20 00:05 | PN ---
DATE: 12/19/2017 SUBJECTIVE: The patient is 72-year-old female. The patient was seen and examined at the bedside on 12/19/2017. Looking comfortable. Son was on the bedside, nurse aide who speaks Belgian is on the patient's bedside. The patient is awake and alert, but is confused. No shortness of breath. No hematuria, no hematochezia. No headache, no dizziness. No chest pain, no palpitations. PHYSICAL EXAMINATION: VITAL SIGNS: Blood pressure 110/55, heart rate 95, respiratory rate 20, temperature 98.6. HEENT: Head normocephalic, atraumatic. Eyes, PERRLA. Extraocular muscles intact. Conjunctivae clear. Nose patent. NECK: Supple. No carotid bruit. No JVD or thyromegaly. CHEST: Bilaterally symmetrical. HEART: S1, S2 positive. LUNGS: Bilateral equal air entry. Bilateral equal expansion. No rales, no rhonchi. ABDOMEN: Soft, nontender. No organomegaly. EXTREMITIES: No edema, no cyanosis. NEUROLOGICAL: The patient is awake, alert, but confused. MEDICATIONS: Benadryl, Brovana, Claritin, Dulcolax, DuoNeb, Lopressor, prednisone, Protonix, and Pulmicort. LABORATORY DATA: White blood cell is 7, hemoglobin 12, hematocrit 38.5, platelets 182. Sodium 136, potassium 4.1, BUN 43, creatinine 3.9, glucose 182. AST 23, ALT 24. ASSESSMENT AND PLAN: Ms. Debby Olguin is a 72-year-old lady with multiple medical problems; has renal insufficiency, on hemodialysis; status post severe profound hypotension; status post respiratory acidosis/altered mental status; right lower lobe pneumonia; cardiomyopathy; ventricular tachycardia; [id number] diabetes mellitus, not controlled; anemia, acute on chronic; secondary hyperparathyroidism. The patient is getting dialysis 3 times a week. We will continue on ProAmatine. Dr. Snow restarted Renagel. We will try to do TCU. Repeat labs. We will follow up. Taylor House MD
[2017-12-20] MEDS: Albuterol-Ipratrop 3 mg / 0.5 (3 ml) UD IH SCH ×5 (08:25→23:15)
[2017-12-20] MEDS: Acetylcysteine 20% Inhal Soln (4ml) IH SCH ×2 (08:25→19:22)
[2017-12-20] MEDS: Budesonide 0.5 mg/2 ml Inhal Susp UD IH SCH ×2 (08:25→19:22)
[2017-12-20] MEDS: Insulin Reg-HIGH-Coverage SC SCH ×5 (09:26→21:50)
[2017-12-20] MEDS: Hydrocortisone 2.5% Rectal Cream(30 gm) PR SCH ×2 (09:28→17:17)
[2017-12-20] MEDS: Lidocaine 2% Jelly (30 ml) TOP SCH ×2 (09:29→17:27)
[2017-12-20] MEDS: Nystatin 100,000 Units/gm Topical Pow(15 gm) TOP SCH ×2 (09:29→17:17)
[2017-12-20] MEDS: Pantoprazole 40 mg EC Tab PO SCH (09:32)
--- NOTE | 2017-12-20 10:51 | CP.PCM.PN ---
Subjective - Date & Time of Evaluation Date of Evaluation: 12/20/17 Time of Evaluation: 07:00 - Subjective Subjective: Awake, alert, confuse,no distress Reason for consultation and follow up:Cardiac evaluation of shortness of breath,admitted for exacerbation of COPD, history of coronary artery disease with PTCA Seen and examined by me and Dr. Bah Objective - Vital Signs/Intake and Output Vital Signs (last 24 hours): Temp Pulse Resp BP Pulse Ox 97.9 F 78 18 113/87 100 12/20/17 06:00 12/20/17 06:00 12/20/17 06:00 12/20/17 06:00 12/20/17 06:00 Intake and Output: 12/20/17 12/20/17 06:59 18:59 Intake Total 120 Balance 120 - Medications Medications: Current Medications Acetylcysteine (Acetylcysteine 20%) 4 ml IH 799,1999 [facility] Last Admin: 12/20/17 08:25 Dose: 4 ml Albuterol/Ipratropium (Duoneb 3 Mg/0.5 Mg (3 Ml) Ud) 3 ml IH Q2H PRN PRN Reason: Shortness of Breath Last Admin: 12/13/17 04:44 Dose: 3 ml Albuterol/Ipratropium (Duoneb 3 Mg/0.5 Mg (3 Ml) Ud) 3 ml IH [id number] [facility] Last Admin: 12/20/17 08:25 Dose: 3 ml Arformoterol Tartrate (Brovana) 15 mcg IH [id number] [facility] Last Admin: 12/16/17 08:00 Dose: 15 mcg Bisacodyl (Dulcolax) 10 mg RC DAILY [facility] Last Admin: 12/20/17 09:33 Dose: 10 mg Budesonide (Pulmicort Respules) 0.5 mg IH [id number] [facility] Last Admin: 12/20/17 08:25 Dose: 0.5 mg Diphenhydramine HCl (Benadryl) 25 mg PO Q8 PRN PRN Reason: Itching / Pruritus Last Admin: 12/20/17 00:03 Dose: 25 mg Heparin Sodium (Porcine) (Heparin) 5,000 units SC Q12 [facility]; Protocol Last Admin: 12/20/17 09:24 Dose: 5,000 units Hydrocortisone (Anusol-Hc) 0 gm [place] BID [facility] Last Admin: 12/20/17 09:28 Dose: 1 cre Insulin Human Regular (Humulin R High) 0 units SC ACHS [facility]; Protocol Last Admin: 12/20/17 09:26 Dose: 2 units Lidocaine HCl (Xylocaine 2%) 0 ea TOP BID [facility] Last Admin: 12/20/17 09:29 Dose: 1 applic Loratadine (Claritin) 10 mg PO DAILY [facility] Last Admin: 12/20/17 09:24 Dose: 10 mg Metoprolol Tartrate (Lopressor) 25 mg PO BID [facility] Last Admin: 12/15/17 17:54 Dose: Not Given Midodrine (Proamatine) 10 mg PO TID [facility] Last Admin: 12/20/17 09:27 Dose: 10 mg Montelukast Sodium (Singulair) 10 mg PO HS [facility] Last Admin: 12/19/17 22:17 Dose: 10 mg Nystatin (Nystop Topical Powder) 1 gm TOP BID [facility] Last Admin: 12/20/17 09:29 Dose: 1 applic Pantoprazole Sodium (Protonix Ec Tab) 40 mg PO ACB [facility] Last Admin: 12/20/17 09:32 Dose: 40 mg Prednisone (Prednisone Tab) 10 mg PO DAILY [facility] Last Admin: 12/20/17 09:27 Dose: 10 mg Sevelamer HCl (Renagel) 1,600 mg PO TID [facility] Last Admin: 12/20/17 09:27 Dose: 1,600 mg Vitamin A (Vitamin A & D Oint Ud Foilpak) 1 ea TOP Q4H PRN PRN Reason: dry mouth area Last Admin: 12/18/17 09:40 Dose: 1 ea - Labs Labs: 12/19/17 06:30 12/19/17 06:30 - Constitutional Appears: Non-toxic, No Acute Distress - Head Exam Head Exam: NORMAL INSPECTION, NORMOCEPHALIC - Eye Exam Eye Exam: Normal appearance Pupil Exam: NORMAL ACCOMODATION - ENT Exam ENT Exam: Mucous Membranes Dry - Respiratory Exam Respiratory Exam: Decreased Breath Sounds, NORMAL BREATHING PATTERN - Cardiovascular Exam Cardiovascular Exam: REGULAR RHYTHM, +S1, +S2 Additional comments: telemetry NSR 70's - GI/Abdominal Exam GI & Abdominal Exam: Soft, Normal Bowel Sounds - Neurological Exam Neurological Exam: Alert, Awake Additional comments: confuse - Psychiatric Exam Psychiatric exam: Normal Affect Additional comments: confuse - Skin Skin Exam: Normal Color, Warm Assessment and Plan - Assessment and Plan (Free Text) Assessment: A 72 year old female danish speaking who came in for shortness of breath.History of coronary artery disease, post PTCA, COPD, diabetes, hyperlipidemia,Life vest but discontinued due to no battery. History of ESRD on hemodialysis. Admitted for exacerbation of COPD and LLL pneumonia. Plan: No distress,denies chest pain Heart rate stable. Telemetry NSR Will discontinue telemetry Blood pressure controlled Cardiac status stable Symptoms improved Control glucose Continue IV antibiotics as ordered by ID On Lopressor 25 mg BID,Midodrine 10 mg TID, Prednisone 10 mg daily, Continue current medications Continue current treatment Chart reviewed Will follow up Plan and treatment discussed with Dr. Bah
--- NOTE | 2017-12-20 15:32 | CARD ---
APPROVED REPORT Date of service: 12/20/2017 EKG Measurement Heart [id number] FL P51 [id number] <Conclusion> Normal sinus rhythm with premature atrial complexes Nonspecific T wave abnormality Prolonged QT Abnormal ECG
--- NOTE | 2017-12-20 17:43 | PN ---
DATE: 12/20/2017 SUBJECTIVE: Patient is 72-year-old female. Patient was seen and examined at the bedside on 12/20/2017. No headache, no dizziness, no fever, no chills. No hematuria or hematochezia. No swelling of the leg. No chest pain. No palpitations. PHYSICAL EXAMINATION: VITAL SIGNS: Temperature 97.9, pulse 78, respiratory rate 18, blood pressure 113/87, pulse oxymetry 100%. HEENT: Head: Normocephalic, atraumatic. Eyes: PERRLA. Extraocular muscles intact. Conjunctivae clear. Nose patent. Mucous membranes moist. NECK: Supple. No carotid bruits. No JVD or thyromegaly. CHEST: Bilaterally symmetrical. HEART: S1, S2 positive.. LUNGS: Clear to auscultation. ABDOMEN: Soft. Bowel sounds present. No organomegaly. EXTREMITIES: No edema, no cyanosis. NEUROLOGIC: Patient is awake and alert. Moving all 4 extremities. No focal deficits. Obeying simple orders. MEDICATIONS: Acetylcysteine, DuoNeb, Brovana, Dulcolax, Benadryl, heparin, Claritin, Lopressor, Singulair, Protonix, prednisone tapering doses. LABORATORY DATA: White blood cell 7, hemoglobin 12, hematocrit 38.5, platelets 182. Sodium 136, potassium 4.1, BUN 43, creatinine 3.9, glucose 182. ASSESSMENT AND PLAN: Ms. Debby Olguin, 72-year-old lady with renal insufficiency getting dialysis 3 times a week, hyperglycemia, coronary artery disease, post percutaneous transluminal coronary angioplasty, chronic obstructive pulmonary disease, diabetes mellitus. LifeVest discontinued due to no battery. She came with exacerbation of chronic obstructive pulmonary disease, left lower lobe pneumonia. Right now, feeling better. On telemetry strip, there is normal sinus rhythm. Continue IV antibiotics as per ID. On Lopressor, continue that. Reviewed Cardiology note. Out of bed, physical therapy, gastrointestinal and deep vein thrombosis prophylaxis. We will follow up. Taylor House MD
--- NOTE | 2017-12-20 19:33 | CP.PCM.PN ---
Subjective - Date & Time of Evaluation Date of Evaluation: 12/20/17 Time of Evaluation: 17:30 - Subjective Subjective: Infectious Disease Follow Up: December 20, 2017 72 yo Singaporean speaking female presenting to [facility] [place] with back pain on sitting down. Patient was found to be hypotensive in ER. The patient has an extensive medical history that includes ESRD on HD, CAD, CHF with EF of 35%, occluded heart vessels, DM, HTN, and ischemic cardiomyopathy. The patient is unable to provide any additional information at this time. Blood pressure improved after 1L fluid bolus on admission. The patient is awake, alert, and orientated times 2 to 3 now. Maintained on nasal cannula with supplemental O2. The patient was hypotensive during an HD treatment that led to the patient being brought back to the MICU. The patient is awake and alert. Periods of confusion noted which does occur on this patient. No distress at this time. The patient is legally blind. Back on regular medical floor. Objective - Vital Signs/Intake and Output Vital Signs (last 24 hours): Temp Pulse Resp BP Pulse Ox 98.4 F 100 H 20 118/63 100 12/20/17 12:00 12/20/17 12:00 12/20/17 12:00 12/20/17 12:00 12/20/17 06:00 - Medications Medications: Current Medications Acetylcysteine (Acetylcysteine 20%) 4 ml IH 0800,1999 [facility] Last Admin: 12/20/17 19:22 Dose: 4 ml Albuterol/Ipratropium (Duoneb 3 Mg/0.5 Mg (3 Ml) Ud) 3 ml IH Q2H PRN PRN Reason: Shortness of Breath Last Admin: 12/13/17 04:44 Dose: 3 ml Albuterol/Ipratropium (Duoneb 3 Mg/0.5 Mg (3 Ml) Ud) 3 ml IH [id number] [facility] Last Admin: 12/20/17 19:22 Dose: 3 ml Arformoterol Tartrate (Brovana) 15 mcg IH [id number] [facility] Last Admin: 12/16/17 08:00 Dose: 15 mcg Bisacodyl (Dulcolax) 10 mg RC DAILY [facility] Last Admin: 12/20/17 09:33 Dose: 10 mg Budesonide (Pulmicort Respules) 0.5 mg IH [id number] [facility] Last Admin: 12/20/17 19:22 Dose: 0.5 mg Diphenhydramine HCl (Benadryl) 25 mg PO Q8 PRN PRN Reason: Itching / Pruritus Last Admin: 12/20/17 00:03 Dose: 25 mg Heparin Sodium (Porcine) (Heparin) 5,000 units SC Q12 [facility]; Protocol Last Admin: 12/20/17 09:24 Dose: 5,000 units Hydrocortisone (Anusol-Hc) 0 gm [place] BID [facility] Last Admin: 12/20/17 17:17 Dose: 1 applic Insulin Human Regular (Humulin R High) 0 units SC ACHS [facility]; Protocol Last Admin: 12/20/17 17:26 Dose: 10 units Lidocaine HCl (Xylocaine 2%) 0 ea TOP BID [facility] Last Admin: 12/20/17 17:27 Dose: Not Given Loratadine (Claritin) 10 mg PO DAILY [facility] Last Admin: 12/20/17 09:24 Dose: 10 mg Metoprolol Tartrate (Lopressor) 25 mg PO BID [facility] Last Admin: 12/15/17 17:54 Dose: Not Given Midodrine (Proamatine) 10 mg PO TID [facility] Last Admin: 12/20/17 17:25 Dose: 10 mg Montelukast Sodium (Singulair) 10 mg PO HS [facility] Last Admin: 12/19/17 22:17 Dose: 10 mg Nystatin (Nystop Topical Powder) 1 gm TOP BID [facility] Last Admin: 12/20/17 17:17 Dose: Not Given Pantoprazole Sodium (Protonix Ec Tab) 40 mg PO ACB [facility] Last Admin: 12/20/17 09:32 Dose: 40 mg Prednisone (Prednisone Tab) 10 mg PO DAILY [facility] Last Admin: 12/20/17 09:27 Dose: 10 mg Sevelamer HCl (Renagel) 1,600 mg PO TID [facility] Last Admin: 12/20/17 17:25 Dose: 1,600 mg Vitamin A (Vitamin A & D Oint Ud Foilpak) 1 ea TOP Q4H PRN PRN Reason: dry mouth area Last Admin: 12/18/17 09:40 Dose: 1 ea - Labs Labs: 12/19/17 06:30 12/19/17 06:30 - Constitutional Appears: Confused, Chronically Ill - Head Exam Head Exam: ATRAUMATIC, NORMOCEPHALIC - Eye Exam Additional comments: legally blind. - ENT Exam ENT Exam: Mucous Membranes Moist, Normal External Ear Exam, TM's Normal B ilaterally - Neck Exam Neck Exam: Full ROM, Normal Inspection - Respiratory Exam Respiratory Exam: Clear to Ausculation Bilateral, NORMAL BREATHING PATTERN. absent: Rales, Rhonchi, Wheezes - Cardiovascular Exam Cardiovascular Exam: REGULAR RHYTHM, RRR, +S1, +S2 - GI/Abdominal Exam GI & Abdominal Exam: Soft, Normal Bowel Sounds. absent: Distended, Tenderness - Extremities Exam Extremities Exam: Full ROM, Normal Inspection - Neurological Exam Neurological Exam: Alert, Awake, CN II-XII Intact Additional comments: Confusion episodes. - Psychiatric Exam Psychiatric exam: Normal Affect, Normal Mood - Skin Skin Exam: Intact, Normal Color Assessment and Plan - Assessment and Plan (Free Text) Assessment: 72 yo female known to me from previous hospitalizations to [facility]. The patient with initial complaint of back pain on sitting down . Found to be hypotensiive at this time. Antibiotics and fluids started. The patient is more awake and alert compared to admission. Blood pressure has improved with 1L of fluids. Started on Aztreonam for antibiotic coverage with single dose of V ancomycin IV and Gentamicin IV. Nam cultures sent. No leukocytosis. Supportive care. If there is continued worsening, will have to consider use of Cefepime despite PCN allergy. Awaiting culture results. The patient is awake and alert now but still confused. The patient can follow commands. Not hypotensive at this time. Cultures with no growth at this time after 3 days. Maintain Broad antibiotic coverage at this time. No specific source of sepsis seen. Septic versus Cardiogenic shock on initial presentation. No specific infectious etiology found at this time. On Aztreonam at this time. Consider 7 to 10 days of antibiotics in total. More likely Cardiogenic in origin. Nearing completion of Aztreonam. The patient had hypotension in HD today and was brought back to MICU. Proc alcitonin during this hospitalization was 0.81 which is low for a septic picture. The patient completed 7 days of Aztreonam at this time. Stage II sacral decubiti dressed. No leukocytosis. Patient appears to be at her baseline mental and physical status. Remains off of antibiotics. Thank you for allowing me to participate in the care of this patient, we will follow with you.
--- NOTE | 2017-12-21 01:55 | PN ---
DATE: 12/20/2017 PULMONARY PROGRESS NOTE REFERRING PHYSICIAN: Taylor House MD SUBJECTIVELY: Patient lying in the bed. Night was unremarkable, comfortable. Feels better. No headache. No rhinitis. Decreased cough. No nausea, vomiting, diarrhea, leg pain, or leg swelling. OBJECTIVE: GENERAL: In no acute distress. VITAL SIGNS: Temperature is 98, heart rate is 100, respiratory rate is 20, blood pressure 118/63,and pulse ox 100% on 3 L nasal cannula. HEENT: Moist mucous membranes. Small oral cavity. Crowded airway. NECK: Supple. No JVD. LUNGS: Have a fair airflow with few rhonchi. HEART: S1 and S2. ABDOMEN: Soft, nontender, and nondistended. EXTREMITIES: Trace edema. NEUROLOGIC: Awake, alert, follows simple commands. LABORATORY DATA: Shows hemoglobin 12.0, hematocrit 38.5, WBC 7.0, and platelet count is 182. Blood sugar this morning is 320. Microbiology; blood culture, urine culture, and nares culture have been negative. IMPRESSION AND PLAN: Status post respiratory failure with CO2 retention and hypoxemia, presently on nasal cannula, suspected hypoventilation syndrome and sleep apnea syndrome, we will continue continuous positive airway pressure while sleeping; pulmonary hypertension; cardiomyopathy; coronary artery disease; and renal failure, dialysis dependent. Spoke to nursing staff. Continue present care. We will continue inhaled bronchodilators. Continuous positive airway pressure while sleeping. Decrease prednisone to 5 mg daily next day or so and then discontinue it. Out of bed to chair. Physical therapy. Fall precaution. Thank you and we will follow with you. Joss Arias MD
[2017-12-21] MEDS: Budesonide 0.5 mg/2 ml Inhal Susp UD IH SCH ×2 (07:09→19:27)
[2017-12-21] MEDS: Acetylcysteine 20% Inhal Soln (4ml) IH SCH ×2 (07:09→19:26)
[2017-12-21] MEDS: Albuterol-Ipratrop 3 mg / 0.5 (3 ml) UD IH SCH ×7 (07:09→23:44)
--- NOTE | 2017-12-21 07:18 | CP.PCM.PN ---
Subjective - Date & Time of Evaluation Date of Evaluation: 12/21/17 Time of Evaluation: 07:00 - Subjective Subjective: No distress,Awake, alert, confuse,no complaints Reason for consultation and follow up:Cardiac evaluation of shortness of breath,admitted for exacerbation of COPD, history of coronary artery disease with PTCA Seen and examined by me and Dr. Bah Objective - Vital Signs/Intake and Output Vital Signs (last 24 hours): Temp Pulse Resp BP Pulse Ox 99.3 F 92 H 18 127/53 L 100 12/20/17 22:35 12/20/17 23:41 12/20/17 22:35 12/20/17 22:35 12/20/17 22:35 - Medications Medications: Current Medications Acetylcysteine (Acetylcysteine 20%) 4 ml IH 0800,1999 [facility] Last Admin: 12/21/17 07:09 Dose: 4 ml Albuterol/Ipratropium (Duoneb 3 Mg/0.5 Mg (3 Ml) Ud) 3 ml IH Q2H PRN PRN Reason: Shortness of Breath Last Admin: 12/13/17 04:44 Dose: 3 ml Albuterol/Ipratropium (Duoneb 3 Mg/0.5 Mg (3 Ml) Ud) 3 ml IH [id number] [facility] Last Admin: 12/21/17 07:09 Dose: 3 ml Arformoterol Tartrate (Brovana) 15 mcg IH [id number] [facility] Last Admin: 12/16/17 08:00 Dose: 15 mcg Bisacodyl (Dulcolax) 10 mg RC DAILY [facility] Last Admin: 12/20/17 09:33 Dose: 10 mg Budesonide (Pulmicort Respules) 0.5 mg IH [id number] [facility] Last Admin: 12/21/17 07:09 Dose: 0.5 mg Diphenhydramine HCl (Benadryl) 25 mg PO Q8 PRN PRN Reason: Itching / Pruritus Last Admin: 12/20/17 00:03 Dose: 25 mg Heparin Sodium (Porcine) (Heparin) 5,000 units SC Q12 [facility]; Protocol Last Admin: 12/20/17 21:18 Dose: 5,000 units Hydrocortisone (Anusol-Hc) 0 gm [place] BID [facility] Last Admin: 12/20/17 17:17 Dose: 1 applic Insulin Human Regular (Humulin R High) 0 units SC [facility]; Protocol Last Admin: 12/20/17 21:50 Dose: Not Given Lidocaine HCl (Xylocaine 2%) 0 ea TOP BID [facility] Last Admin: 12/20/17 17:27 Dose: Not Given Loratadine (Claritin) 10 mg PO DAILY [facility] Last Admin: 12/20/17 09:24 Dose: 10 mg Metoprolol Tartrate (Lopressor) 25 mg PO BID [facility] Last Admin: 12/15/17 17:54 Dose: Not Given Midodrine (Proamatine) 10 mg PO TID [facility] Last Admin: 12/20/17 17:25 Dose: 10 mg Montelukast Sodium (Singulair) 10 mg PO HS [facility] Last Admin: 12/20/17 21:18 Dose: 10 mg Nystatin (Nystop Topical Powder) 1 gm TOP BID [facility] Last Admin: 12/20/17 17:17 Dose: Not Given Pantoprazole Sodium (Protonix Ec Tab) 40 mg PO ACB [facility] Last Admin: 12/20/17 09:32 Dose: 40 mg Prednisone (Prednisone Tab) 10 mg PO DAILY [facility] Last Admin: 12/20/17 09:27 Dose: 10 mg Sevelamer HCl (Renagel) 1,600 mg PO TID [facility] Last Admin: 12/20/17 17:25 Dose: 1,600 mg Vitamin A (Vitamin A & D Oint Ud Foilpak) 1 ea TOP Q4H PRN PRN Reason: dry mouth area Last Admin: 12/18/17 09:40 Dose: 1 ea - Labs Labs: 12/19/17 06:30 12/19/17 06:30 - Constitutional Appears: Non-toxic, No Acute Distress - Eye Exam Eye Exam: Normal appearance Pupil Exam: NORMAL ACCOMODATION - ENT Exam ENT Exam: Mucous Membranes Moist, Normal Exam - Respiratory Exam Respiratory Exam: Clear to Ausculation Bilateral - Cardiovascular Exam Cardiovascular Exam: +S1, +S2 Additional comments: No JVD right chest wall Shiley catheter - GI/Abdominal Exam GI & Abdominal Exam: Soft, Normal Bowel Sounds - Exam Additional comments: ESRD on hemodialysis 3x a week - Extremities Exam Extremities Exam: Full ROM, Normal Capillary Refill - Neurological Exam Neurological Exam: Alert, Awake - Psychiatric Exam Psychiatric exam: Normal Affect, Normal Mood - Skin Skin Exam: Dry, Normal Color, Warm Assessment and Plan - Assessment and Plan (Free Text) Assessment: A 72 year old female emirati speaking who came in for shortness of breath.History of coronary artery disease, post PTCA, COPD, diabetes, hyperlipidemia,Life vest but discontinued due to no battery. History of ESRD on hemodialysis. Admitted for exacerbation of COPD and LLL pneumonia.Clinically stable. Off telemetry. Plan: Clinically stable No distress,denies chest pain Heart rate stable. Blood pressure controlled Cardiac status stable Symptoms improved Control glucose Continue IV antibiotics as ordered by ID On Lopressor 25 mg BID,Midodrine 10 mg TID, Prednisone 10 mg daily, Continue current medications Continue current treatment Chart reviewed Will follow up Plan and treatment discussed with Dr. Bah
[2017-12-21] MEDS: Insulin Reg-HIGH-Coverage SC SCH ×4 (08:41→22:02)
[2017-12-21] MEDS: Pantoprazole 40 mg EC Tab PO SCH (08:42)
--- NOTE | 2017-12-21 10:24 | CP.PCM.PN ---
Subjective - Date & Time of Evaluation Date of Evaluation: 12/21/17 Time of Evaluation: 10:05 - Subjective Subjective: PGY-3 house resident progress note Paged by nurse to evaluate patient complaining of chest pain, 11/26, SBP 108, saturating 100% on room air. Patient is a 72 y/o female admitted with pleural effusion and pneumonia. Upon evaluating patient on 5R, patient denied chest pain in [place], states she's experiencing pain in the sacral region. Denied sob. Vitals as above Physical exam: no acute distress, heart: RRR, no murmurs, Lungs CTA Back: stage 2 sacral decubitus ulcers with clean dressing Plan: Spoke to Dr. House, Troponin x3, stat EKG Contact node js developer Turn patient [id number] Nurse aware of the plan. Objective - Vital Signs/Intake and Output Vital Signs (last 24 hours): Temp Pulse Resp BP Pulse Ox 98.5 F 91 H 19 121/56 L 96 12/21/17 08:02 12/21/17 08:02 12/21/17 08:02 12/21/17 08:02 12/21/17 08:02 - Medications Medications: Current Medications Acetylcysteine (Acetylcysteine 20%) 4 ml IH 0800,1999 [facility] Last Admin: 12/21/17 07:09 Dose: 4 ml Albuterol/Ipratropium (Duoneb 3 Mg/0.5 Mg (3 Ml) Ud) 3 ml IH Q2H PRN PRN Reason: Shortness of Breath Last Admin: 12/13/17 04:44 Dose: 3 ml Albuterol/Ipratropium (Duoneb 3 Mg/0.5 Mg (3 Ml) Ud) 3 ml IH [id number] [facility] Last Admin: 12/21/17 07:09 Dose: 3 ml Arformoterol Tartrate (Brovana) 15 mcg IH [id number] [facility] Last Admin: 12/16/17 08:00 Dose: 15 mcg Bisacodyl (Dulcolax) 10 mg RC DAILY [facility] Last Admin: 12/20/17 09:33 Dose: 10 mg Budesonide (Pulmicort Respules) 0.5 mg IH [id number] [facility] Last Admin: 12/21/17 07:09 Dose: 0.5 mg Diphenhydramine HCl (Benadryl) 25 mg PO Q8 PRN PRN Reason: Itching / Pruritus Last Admin: 12/20/17 00:03 Dose: 25 mg Heparin Sodium (Porcine) (Heparin) 5,000 units SC Q12 [facility]; Protocol Last Admin: 12/20/17 21:18 Dose: 5,000 units Hydrocortisone (Anusol-Hc) [address] BID [facility] Last Admin: 12/20/17 17:17 Dose: 1 applic Insulin Human Regular (Humulin R High) 0 units SC ACHS [facility]; Protocol Last Admin: 12/21/17 08:41 Dose: 2 units Lidocaine HCl (Xylocaine 2%) 0 ea TOP BID [facility] Last Admin: 12/20/17 17:27 Dose: Not Given Loratadine (Claritin) 10 mg PO DAILY [facility] Last Admin: 12/20/17 09:24 Dose: 10 mg Metoprolol Tartrate (Lopressor) 25 mg PO BID [facility] Last Admin: 12/15/17 17:54 Dose: Not Given Midodrine (Proamatine) 10 mg PO TID [facility] Last Admin: 12/20/17 17:25 Dose: 10 mg Montelukast Sodium (Singulair) 10 mg PO HS [facility] Last Admin: 12/20/17 21:18 Dose: 10 mg Nystatin (Nystop Topical Powder) 1 gm TOP BID [facility] Last Admin: 12/20/17 17:17 Dose: Not Given Pantoprazole Sodium (Protonix Ec Tab) 40 mg PO ACB [facility] Last Admin: 12/21/17 08:42 Dose: 40 mg Prednisone (Prednisone Tab) 10 mg PO DAILY [facility] Last Admin: 12/20/17 09:27 Dose: 10 mg Sevelamer HCl (Renagel) 1,600 mg PO TID [facility] Last Admin: 12/20/17 17:25 Dose: 1,600 mg Vitamin A (Vitamin A & D Oint Ud Foilpak) 1 ea TOP Q4H PRN PRN Reason: dry mouth area Last Admin: 12/18/17 09:40 Dose: 1 ea - Labs Labs: 12/19/17 06:30 12/19/17 06:30
[2017-12-21] MEDS: Nystatin 100,000 Units/gm Topical Pow(15 gm) TOP SCH ×2 (10:27→17:25)
[2017-12-21] MEDS: Hydrocortisone 2.5% Rectal Cream(30 gm) PR SCH ×2 (10:28→17:25)
[2017-12-21] MEDS: Lidocaine 2% Jelly (30 ml) TOP SCH ×2 (10:29→17:25)
--- NOTE | 2017-12-21 11:18 | CARD ---
APPROVED REPORT Date of service: 12/21/2017 EKG Measurement Heart [id number] <Conclusion> Normal sinus rhythm with frequent premature atrial complexes Cannot rule out Inferior infarct, age undetermined Abnormal ECG
--- NOTE | 2017-12-21 11:40 | PN ---
DATE: 12/21/2017 SUBJECTIVE: The patient is seen lying in bed. She is awake, she is alert. She appears comfortable. She denies any chest pain. She denies any shortness of breath. She still has some cough. PHYSICAL EXAMINATION GENERAL: Elderly lady lying in bed. VITAL SIGNS: Blood pressure 121/56, heart rate 91, respiratory rate 19, temperature 98.5. HEENT: Normocephalic, atraumatic, positive pallor. NECK: Supple, no JVD. LUNGS: Bilateral equal air entry, bilateral equal expansion. CARDIAC: S1 and S2, regular rate and rhythm, no murmur, no rub. ABDOMEN: Obese, distended, soft, nontender, bowel sounds present. EXTREMITIES: 2+ pitting edema of the upper extremities and in the lower extremities. INTAKE AND OUTPUT: Not charted. LABORATORY DATA: No new labs. MEDICATIONS: List reviewed. Continue ProAmatine 10 mg three times a day ASSESSMENT AND PLAN: 1. Severe pulmonary hypertension, congestive heart failure, cardiomyopathy. 2. Hypotension. 3. Chronic obstructive pulmonary disease. 4. End-stage renal disease. 5. Resolving pneumonia. PLAN: 1. Continue ProAmatine 10 t.i.d. for low blood pressure. 2. Dialysis tomorrow. 3. Continue phosphate binders. 4. Discharge planning. Marlyn Snow MD
--- NOTE | 2017-12-21 13:31 | PN ---
DATE: 12/21/2017 REASON FOR CONSULTATION AND FOLLOWUP: Cardiac evaluation, shortness of breath, history of COPD, pneumonia, history of PTCA. This note is an addition to dictated by nurse practitioner. Patient is stable, history of coronary artery disease in the remote. History of recently placed LifeVest and brought into AICD, but ejection fraction was preserved, LifeVest was removed. Admitted with pneumonia, history of COPD, history of end-stage renal disease. RECOMMENDATION: Continue aggressive medical treatment. Overall patient's long-term condition is poor because of underlying comorbidity. We should discuss the living will seriously, and upon discharge, patient will be followed with , senior resident care director and Dr. Motta and Dr. Sussy De La O group. Continue beta rossana, continue DVT prophylaxis. Further reevaluation for AICD placement as per , PMD. Joss Bah MD
--- NOTE | 2017-12-21 18:22 | CP.PCM.PN ---
Subjective - Date & Time of Evaluation Date of Evaluation: 12/21/17 Time of Evaluation: 15:30 - Subjective Subjective: Infectious Disease Follow Up: December 21, 2017 72 yo [place] speaking [place] [facility] [place] on sitting down. Patient was found to be hypotensive in ER. The patient has an extensive medical history that includes ESRD on HD, CAD, CHF with EF of 35%, occluded heart vessels, DM, HTN, and ischemic cardiomyopathy. The patient is unable to provide any additional information at this time. Blood pressure improved after 1L fluid bolus on admission. The patient is awake, alert, and orientated times 2 to 3 now. Maintained on nasal cannula with supplemental O2. The patient was hypotensive during an HD treatment that led to the patient being brought back to the MICU. The patient is awake and alert. Periods of confusion noted which does occur on this patient. No distress at this time but complaining of low back/buttocks pain. The patient is legally blind. Back on regular medical floor. Objective - Vital Signs/Intake and Output Vital Signs (last 24 hours): Temp Pulse Resp BP Pulse Ox 98.2 F 92 H 18 105/65 100 12/21/17 14:00 12/21/17 14:00 12/21/17 14:00 12/21/17 14:00 12/21/17 14:00 - Medications Medications: Current Medications Acetylcysteine (Acetylcysteine 20%) 4 ml IH 0800,1999 [facility] Last Admin: 12/21/17 07:09 Dose: 4 ml Albuterol/Ipratropium (Duoneb 3 Mg/0.5 Mg (3 Ml) Ud) 3 ml IH Q2H PRN PRN Reason: Shortness of Breath Last Admin: 12/13/17 04:44 Dose: 3 ml Albuterol/Ipratropium (Duoneb 3 Mg/0.5 Mg (3 Ml) Ud) 3 ml IH [id number] [facility] Last Admin: 12/21/17 15:34 Dose: 3 ml Arformoterol Tartrate (Brovana) 15 mcg IH [id number] [facility] Last Admin: 12/16/17 08:00 Dose: 15 mcg Bisacodyl (Dulcolax) 10 mg RC DAILY [facility] Last Admin: 12/21/17 10:28 Dose: 10 mg Budesonide (Pulmicort Respules) 0.5 mg IH [id number] [facility] Last Admin: 12/21/17 07:09 Dose: 0.5 mg Diphenhydramine HCl (Benadryl) 25 mg PO Q8 PRN PRN Reason: Itching / Pruritus Last Admin: 12/20/17 00:03 Dose: 25 mg Heparin Sodium (Porcine) (Heparin) 5,000 units SC Q12 [facility]; Protocol Last Admin: 12/21/17 10:28 Dose: 5,000 units Hydrocortisone (Anusol-Hc) 0 gm NV BID [facility] Last Admin: 12/21/17 17:25 Dose: Not Given Insulin Human Regular (Humulin R High) 0 units SC ACHS [facility]; Protocol Last Admin: 12/21/17 17:24 Dose: 7 units Lidocaine HCl (Xylocaine 2%) 0 ea TOP BID [facility] Last Admin: 12/21/17 17:25 Dose: Not Given Loratadine (Claritin) 10 mg PO DAILY [facility] Last Admin: 12/21/17 10:27 Dose: 10 mg Metoprolol Tartrate (Lopressor) 25 mg PO BID [facility] Last Admin: 12/15/17 17:54 Dose: Not Given Midodrine (Proamatine) 10 mg PO TID [facility] Last Admin: 12/21/17 17:24 Dose: 10 mg Montelukast Sodium (Singulair) 10 mg PO HS [facility] Last Admin: 12/20/17 21:18 Dose: 10 mg Nystatin (Nystop Topical Powder) 1 gm TOP BID [facility] Last Admin: 12/21/17 17:25 Dose: 1 applic Pantoprazole Sodium (Protonix Ec Tab) 40 mg PO ACB [facility] Last Admin: 12/21/17 08:42 Dose: 40 mg Prednisone (Prednisone Tab) 5 mg PO DAILY [facility] Sevelamer HCl (Renagel) 1,600 mg PO TID [facility] Last Admin: 12/21/17 17:24 Dose: 1,600 mg Vitamin A (Vitamin A & D Oint Ud Foilpak) 1 ea TOP Q4H PRN PRN Reason: dry mouth area Last Admin: 12/18/17 09:40 Dose: 1 ea - Labs Labs: 12/19/17 06:30 12/19/17 06:30 - Constitutional Appears: Non-toxic, No Acute Distress, Chronically Ill - Head Exam Head Exam: ATRAUMATIC, NORMOCEPHALIC - Eye Exam Additional comments: legally blind. - ENT Exam ENT Exam: Mucous Membranes Moist, Normal External Ear Exam, TM's Normal Bilaterally - Neck Exam Neck Exam: Full ROM, Normal Inspection - Respiratory Exam Respiratory Exam: Clear to Ausculation Bilateral, NORMAL BREATHING PATTERN. absent: Rales, Rhonchi, Wheezes - Cardiovascular Exam Cardiovascular Exam: REGULAR RHYTHM, RRR, +S1, +S2 - GI/Abdominal Exam GI & Abdominal Exam: Soft, Normal Bowel Sounds. absent: Distended, Tenderness - Extremities Exam Extremities Exam: Full ROM, Normal Inspection - Neurological Exam Neurological Exam: Alert, Awake, CN II-XII Intact Additional comments: Confusion - Psychiatric Exam Psychiatric exam: Normal Affect, Normal Mood - Skin Skin Exam: Intact, Normal Color Assessment and Plan - Assessment and Plan (Free Text) Assessment: 72 yo [place] known to me [place] [facility] [place] The p atient with initial complaint of back pain on sitting down . Found to be hypotensiive at this time. Antibiotics and fluids started. The patient is more awake and alert compared to admission. Blood pressure has improved with 1L of fluids. Started on Aztreonam for antibiotic coverage with single dose of Vancomycin IV and Gentamicin IV. Nam cultures sent. No leukocytosis. Supportive care. If there is continued worsening, will have to consider use of Cefepime despite PCN allergy. Awaiting culture results. The patient is awake and alert now but still confused. The patient can follow commands. Not hypotensive at this time. Cultures with no growth at this time after 3 days. Maintain Broad antibiotic coverage at this time. No specific source of sepsis seen. Septic versus Cardiogenic shock on initial presentation. No specific infectious etiology found at this time. On Aztreonam at this time. Consider 7 to 10 days of antibiotics in total. More likely Cardiogenic in origin. Nearing completion of Aztreonam. The patient had hypotension in HD and was brought back to MICU. Procalcitonin during this hospitalization was 0.81 which is low for a septic picture. The patient completed 7 days of Aztreonam at this time. Stage II sacral decubiti dressed. No leukocytosis. Patient appears to be at her baseline mental and physical status. Remains off of antibiotics. On regular medical floor. Noted patient complaining of low back/buttocks pain. Thank you for allowing me to participate in the care of this patient, we will follow with you.
--- NOTE | 2017-12-21 20:09 | PN ---
DATE: 12/21/2017 PULMONARY PROGRESS NOTE REFERRING PHYSICIAN: Taylor House MD SUBJECTIVE: She is lying in the bed, sleepy, and arousable. Night was unremarkable. No cough. No sputum production. No hemoptysis. No hematemesis. No hematuria. No diarrhea reported. OBJECTIVE: GENERAL: In no acute distress. VITAL SIGNS: Temperature is 98, heart rate is 91, respiratory rate is 18, blood pressure 121/56, and pulse ox 96% on 3 L nasal cannula. HEENT: Moist mucous membranes. Crowded airway. Mallampati score is 4. NECK: Short thick neck. LUNGS: Has a fair airflow with few rhonchi. HEART: S1 and S2. ABDOMEN: Soft and nontender. No organomegaly. EXTREMITIES: There is no edema. NEUROLOGIC: Awake and alert. Follows simple command. MEDICATIONS: She is on Mucomyst 20% inhaled twice a day, Anusol rectally twice a day, Benadryl 25 mg every 8 hours p.r.n., Brovana inhaled twice a day, Claritin 10 mg daily, Dulcolax 10 mg rectally daily, DuoNeb every 4 hours around the clock and every 2 hours p.r.n. basis, heparin 5000 units subcutaneously every 12 hours, insulin coverage, metoprolol tartrate 25 mg twice a day, nystatin to affected area, prednisone 10 mg daily, midodrine 10 mg three times a day, Protonix 40 mg daily, Pulmicort inhaled twice a day, Renagel three times a day, Singulair 10 mg daily, and vitamin A and D ointment to the affected area. LABORATORY DATA: Reviewed. Blood sugar this morning 211. Troponin this morning 0.06. Microbiology; blood culture and urine culture have been negative. EKG done which shows normal sinus rhythm with frequent premature atrial complexes. IMPRESSION AND PLAN: Status post respiratory failure with CO2 retention and hypoxemia; presented on nasal cannula; suspected hypoventilation syndrome; sleep apnea syndrome; renal failure, dialysis dependent; and known to have cardiomyopathy with pulmonary hypertension. Pulmonary point of view; doing well and encourage BiPAP use at nighttime. Continue bronchodilator. Avoid sedatives. Gastric prophylaxis, will benefit from physical therapy, out of bed to chair, and fall precautions. Thank you and we will follow with you. Joss Arias MD [facility] # [id number]
--- NOTE | 2017-12-21 23:05 | PN ---
DATE: 12/21/2017 SUBJECTIVE: The patient was seen and examined on the bedside on 12/21/2017. This progress note is for 12/21/2017. Looking comfortable. No cough. No fever. No chills. No sputum production. No hematuria or hematochezia. No swelling of the legs. No headache. No dizziness. PHYSICAL EXAMINATION: VITAL SIGNS: Temperature 98, heart rate 91, respiratory rate 18, blood pressure 120/50, pulse oximetry 96% on 3 L nasal cannula. HEENT: Head normocephalic, atraumatic. Eyes PERRLA. Extraocular muscles intact. Conjunctivae clear. Nose patent. Mucous membrane moist. NECK: Supple. No carotid bruit. No JVD or thyromegaly. LUNGS: Fair airflow with few rhonchi. ABDOMEN: Soft, nontender. No organomegaly. EXTREMITIES: No edema. No cyanosis. NEUROLOGICAL: The patient is awake and alert. Follows simple commands. MEDICATIONS: Mucomyst, Anusol, Benadryl, Brovana, Claritin, Dulcolax, DuoNeb, heparin, insulin, metoprolol, nystatin, prednisone, midodrine, Protonix, Pulmicort, Renagel. LABORATORY DATA: We do not have recent lab today, but I reviewed old labs. Blood sugar is 211. Troponin is 0.06. ASSESSMENT AND PLAN: Ms. Debby Olguin, 72-year-old female, status post respiratory failure with hypertension, hyperglycemia. Came with nasal cannula. Suspected hypoventilation syndrome. Sleep apnea syndrome, renal failure, hemodialysis 3 times a week, cardiomyopathy, pulmonary hypertension. Continue bronchodilators. Avoid sedation. Gastric, deep venous thrombosis prophylaxis. Out of bed, physical therapy TCU. We will follow up. Taylor House MD [facility]
[2017-12-22] MEDS: Albuterol-Ipratrop 3 mg / 0.5 (3 ml) UD IH SCH ×6 (04:09→23:29)
[2017-12-22 06:55] LABS: CALCIUM 8.9 mg/dL (8.4-10.5)
[2017-12-22 06:56] LABS: HEMOGLOBIN 12.7 g/dL (12.0-16.0); MEAN CELL VOLUME 117.1 fl (80.0-105.0); MEAN CORPUSCULAR HEMOGLOBIN 36.8 pg (25.0-35.0); MEAN CORPUSCULAR HGB CONC 31.4 g/dl (31.0-37.0); RBC 3.45 10^6/uL (3.5-6.1); RED CELL DISTRIBUTION WIDTH 17.9 % (11.5-14.5); WHITE BLOOD COUNT 8.4 10^3/uL (4.5-11.0)
[2017-12-22] MEDS: Budesonide 0.5 mg/2 ml Inhal Susp UD IH SCH ×2 (07:27→20:20)
[2017-12-22] MEDS: Acetylcysteine 20% Inhal Soln (4ml) IH SCH ×2 (07:27→20:20)
[2017-12-22] MEDS: Insulin Reg-HIGH-Coverage SC SCH ×4 (08:22→22:32)
--- NOTE | 2017-12-22 08:41 | PN ---
DATE: 12/20/2017 The patient is a female. The patient is a 72-year-old diabetic patient who brought here . REASON FOR CONSULTATION: Followup cardiac evaluation, admitted with pneumonia, COPD exacerbation, history of PTCA, CAD. This note is an addition to dictated with nurse practitioner. Lying flat in the bed, stable. RECOMMENDATIONS: Continue antibiotic, continue dialysis. Upon discharge, the patient to be followed up with Dr. Motta in the group of Dr. Tuttle. The patient is off LifeVest. Continue low-dose beta rossana, continue antibiotic as per ID. CVA status is stable. If remain stable, possible DC telemetry. Joss Bah MD
[2017-12-22] MEDS: Pantoprazole 40 mg EC Tab PO SCH (09:21)
[2017-12-22] MEDS: Lidocaine 2% Jelly (30 ml) TOP SCH ×2 (09:22→19:14)
[2017-12-22] MEDS: Nystatin 100,000 Units/gm Topical Pow(15 gm) TOP SCH ×2 (09:48→19:05)
[2017-12-22] MEDS: Hydrocortisone 2.5% Rectal Cream(30 gm) PR SCH ×3 (11:54→19:16)
[2017-12-22] MEDS ORDERED: Doxercalciferol 4 mcg/2 ml Inj IVP ONE (12:38)
[2017-12-22 13:24] LABS: EOS # 0.1 (0.0-0.7); EOS % 1.5 % (1.5-5.0); GRAN # 7.38 (1.4-6.5); GRAN % 79.9 % (50.0-68.0); HEMOGLOBIN 12.3 g/dL (12.0-16.0); LYMPH # 1.3 (1.2-3.4); LYMPH % 13.9 % (22.0-35.0); MEAN CELL VOLUME 118.9 fl (80.0-105.0); MEAN CORPUSCULAR HEMOGLOBIN 36.4 pg (25.0-35.0); MEAN CORPUSCULAR HGB CONC 30.6 g/dl (31.0-37.0); MEAN PLATELET VOLUME 10.9 fl (7.0-11.0); MONO # 0.4 (0.1-0.6); MONO % 4.7 % (1.0-6.0); RBC 3.38 10^6/uL (3.5-6.1); RED CELL DISTRIBUTION WIDTH 17.8 % (11.5-14.5); WHITE BLOOD COUNT 9.2 10^3/uL (4.5-11.0)
[2017-12-22 13:45] LABS: ALB/GLOB RATIO 1.1 (1.1-1.8); ALBUMIN 3.6 g/dL (3.0-4.8); CALCIUM 9.1 mg/dL (8.4-10.5)
--- NOTE | 2017-12-22 15:39 | PN ---
DATE: 12/22/2017 SUBJECTIVE: The patient is seen lying in bed in the dialysis unit. She is awake. She is alert. She is comfortable. She is getting dialysis. She does not appear to be in any kind of distress. PHYSICAL EXAMINATION: VITAL SIGNS: Blood pressure 103/51, heart rate of 50, respiratory rate 18, temperature 99. HEENT: Normocephalic, atraumatic, positive pallor. NECK: Supple, no JVD. LUNGS: Bilateral equal entry, bilateral equal expansion, no rales. CARDIAC: S1 and S2, regular rate and rhythm, no murmur, no rub. ABDOMEN: Obese, distended, soft, nontender, bowel sounds present. EXTREMITIES: Trace lower extremity edema. LABORATORY DATA: WBC 9.2, hemoglobin 12, hematocrit 40, platelet 177. Sodium 137, potassium 3.8, chloride 98, CO2 of 26, BUN 62, creatinine 5.9, glucose 286, calcium 9.1, phosphorus 3.7, magnesium not checked, albumin 3.6. CURRENT MEDICATIONS: List reviewed. ASSESSMENT: 1. Status post pneumonia, respiratory failure, sepsis. 2. Status post hypotension. 3. Noninsulin-dependent diabetes mellitus. 4. Hypertension. 5. End-stage renal disease. 6. Congestive heart failure/cardiomyopathy/ventricular tachycardia. PLAN: 1. Stable dialysis. 2. Continue ProAmatine. 3. Complete antibiotics as per ID. 4. Physical therapy. 5. Discharge planning. Marlyn Snow MD
--- NOTE | 2017-12-22 18:17 | US ---
HISTORY: Leg pain and swelling. Evaluate for DVT PHYSICIAN(S): Chaka Noel MD. TECHNIQUE: Duplex sonography and color-flow Doppler with graded compression were used to evaluate the deep venous systems of both lower extremities. The exam is limited by edema. FINDINGS: The visualized deep venous systems of both lower extremities are sonographically normal and compressible. Normal wave forms and augmentation are seen. There is no sonographic evidence for deep venous thrombosis in the visualized segments of both lower extremities. IMPRESSION: No sonographic evidence for deep venous thrombosis in the visualized segments of both lower extremities.
--- NOTE | 2017-12-22 19:03 | CP.PCM.PN ---
Subjective - Date & Time of Evaluation Date of Evaluation: 12/22/17 Time of Evaluation: 16:15 - Subjective Subjective: Infectious Disease Follow Up: December 22, 2017 72 yo German speaking female presenting to [facility] with back pain on sitting down. Patient was found to be hypotensive in ER. The patient has an extensive medical history that includes ESRD on HD, CAD, CHF with EF of 35%, occluded heart vessels, DM, HTN, and ischemic cardiomyopathy. The patient is unable to provide any additional information at this time. Blood pressure improved after 1L fluid bolus on admission. The patient is awake, alert, and orientated times 2 to 3 now. Maintained on nasal cannula with supplemental O2. The patient was hypotensive during an HD treatment that led to the patient being brought back to the MICU. The patient is awake and alert. Periods of confusion noted which does occur on this patient. No distress at this time but complaining of low back/buttocks pain. The patient is legally blind. Back on regular medical floor. Objective - Vital Signs/Intake and Output Vital Signs (last 24 hours): Temp Pulse Resp BP Pulse Ox 99 F 50 L 18 103/51 L 97 12/22/17 06:00 12/22/17 06:00 12/22/17 06:00 12/22/17 06:00 12/22/17 06:00 - Medications Medications: Current Medications Acetylcysteine (Acetylcysteine 20%) 4 ml IH 0800,1999 [facility] Last Admin: 12/22/17 07:27 Dose: 4 ml Albuterol/Ipratropium (Duoneb 3 Mg/0.5 Mg (3 Ml) Ud) 3 ml IH Q2H PRN PRN Reason: Shortness of Breath Last Admin: 12/13/17 04:44 Dose: 3 ml Albuterol/Ipratropium (Duoneb 3 Mg/0.5 Mg (3 Ml) Ud) 3 ml IH [id number] [facility] Last Admin: 12/22/17 16:20 Dose: Not Given Arformoterol Tartrate (Brovana) 15 mcg IH [id number] [facility] Last Admin: 12/16/17 08:00 Dose: 15 mcg Bisacodyl (Dulcolax) 10 mg RC DAILY [facility] Last Admin: 12/22/17 09:21 Dose: 10 mg Budesonide (Pulmicort Respules) 0.5 mg IH [id number] [facility] Last Admin: 12/22/17 07:27 Dose: 0.5 mg Diphenhydramine HCl (Benadryl) 25 mg PO Q8 PRN PRN Reason: Itching / Pruritus Last Admin: 12/20/17 00:03 Dose: 25 mg Heparin Sodium (Porcine) (Heparin) 5,000 units SC Q12 [facility]; Protocol Last Admin: 12/22/17 12:48 Dose: Not Given Hydrocortisone (Anusol-Hc) 0 gm LA BID [facility] Last Admin: 12/22/17 11:54 Dose: 1 applic Insulin Human Regular (Humulin R High) 0 units SC ACHS [facility]; Protocol Last Admin: 12/22/17 11:52 Dose: 7 units Lidocaine HCl (Xylocaine 2%) 0 ea TOP BID [facility] Last Admin: 12/22/17 09:22 Dose: 1 applic Loratadine (Claritin) 10 mg PO DAILY [facility] Last Admin: 12/22/17 09:19 Dose: 10 mg Metoprolol Tartrate (Lopressor) 12.5 mg PO BID [facility] Midodrine (Proamatine) 10 mg PO TID [facility] Last Admin: 12/22/17 14:24 Dose: Not Given Montelukast Sodium (Singulair) 10 mg PO HS [facility] Last Admin: 12/21/17 22:05 Dose: 10 mg Nystatin (Nystop Topical Powder) 1 gm TOP BID [facility] Last Admin: 12/22/17 09:48 Dose: 1 applic Pantoprazole Sodium (Protonix Ec Tab) 40 mg PO ACB [facility] Last Admin: 12/22/17 09:21 Dose: 40 mg Sevelamer HCl (Renagel) 1,600 mg PO TID [facility] Last Admin: 12/22/17 14:24 Dose: Not Given Vitamin A (Vitamin A & D Oint Ud Foilpak) 1 ea TOP Q4H PRN PRN Reason: dry mouth area Last Admin: 12/18/17 09:40 Dose: 1 ea - Labs Labs: 12/22/17 13:15 12/22/17 13:15 - Constitutional Appears: Non-toxic, No Acute Distress, Chronically Ill - Head Exam Head Exam: ATRAUMATIC, NORMOCEPHALIC - Eye Exam Additional comments: legally blind - ENT Exam ENT Exam: Mucous Membranes Moist, Normal External Ear Exam, TM's Normal Bilaterally - Neck Exam Neck Exam: Full ROM, Normal Inspection - Respiratory Exam Respiratory Exam: Clear to Ausculation Bilateral, NORMAL BREATHING PATTERN. absent: Rales, Rhonchi, Wheezes - Cardiovascular Exam Cardiovascular Exam: REGULAR RHYTHM, RRR, +S1, +S2 - GI/Abdominal Exam GI & Abdominal Exam: Soft, Normal Bowel Sounds. absent: Distended, Tenderness - Extremities Exam Extremities Exam: Full ROM, Normal Inspection - Neurological Exam Neurological Exam: Alert, Awake, CN II-XII Intact Additional comments: Confusion - Psychiatric Exam Psychiatric exam: Normal Affect, Normal Mood - Skin Skin Exam: Intact, Normal Color Assessment and Plan - Assessment and Plan (Free Text) Assessment: 72 yo female known to me from previous hospitalizations to [facility]. The patient with initial complaint of back pain on sitting down . Found to be hypotensiive at this time. Antibiotics and fluids started. The patient is more awake and alert compared to admission. Blood pressure has improved with 1L of fluids. Started on Aztreonam for antibiotic coverage with single dose of Vancomycin IV and Gentamicin IV. Nam cultures sent. No leukocytosis. Supporti ve care. If there is continued worsening, will have to consider use of Cefepime despite PCN allergy. Awaiting culture results. The patient is awake and alert now but still confused. The patient can follow commands. Not hypotensive at this time. Cultures with no growth at this time after 3 days. Maintain Broad antibiotic coverage at this time. No specific source of sepsis seen. Septic versus Cardiogenic shock on initial presentation. No specific infectious etiology found at this time. On Aztreonam at this time. Consider 7 to 10 days of antibiotics in total. More likely Cardiogenic in origin. Nearing completion of Aztreonam. The patient had hypotension in HD and was brought back to MICU. Procalcitonin during this hospitalization was 0.81 which is low for a septic picture. The patient completed 7 days of Aztreonam at this time. Stage II sacral decubiti dressed. No leukocytosis. Patient appears to be at her baseline mental and physical status. Remains off of antibiotics. On regular medical floor. Noted patient complaining of low back/buttocks pain. Thank you for allowing me to participate in the care of this patient, we will follow with you.
[2017-12-22] MEDS ORDERED: Insulin Regular 1 UNITS/0.01 ML ML SC ONE (21:56)
--- NOTE | 2017-12-23 02:29 | PN ---
DATE: 12/22/2017 PULMONARY PROGRESS NOTE REFERRING PHYSICIAN: Dr. Taylor House. SUBJECTIVE: She is examined and seen in dialysis room, just finished dialysis, fully awake and alert. Feels better. No headache. No rhinitis. No cough. No nausea or vomiting. No diarrhea. No leg pain or leg swelling. OBJECTIVE: GENERAL: In no acute distress. VITAL SIGNS: Temperature is 99, heart rate 50, respiratory rate 18, and blood pressure 119/67, pulse ox 97% 3 liters nasal cannula. HEENT: Moist mucous membrane. Crowded airway. Mallampati score is IV. NECK: Supple. No JVD. LUNGS: Have fair airflow with rhonchi. HEART: S1 and S2. ABDOMEN: Soft, nontender. No organomegaly. EXTREMITIES: There is no edema of the lower extremities, has some edema of the upper extremities. NEUROLOGIC: Awake, alert and follows simple command. MEDICATIONS: She is on Mucomyst 20% inhaled every 12 hours, Anusol rectally twice a day, Benadryl 25 mg every 8 hours p.r.n., Brovana inhaled twice a day, Claritin 10 mg daily, Dulcolax 10 mg daily, DuoNeb every 2 hours p.r.n. every 4 hour [id number], heparin 5000 units subcu every 12 hours, metoprolol tartrate 12.5 mg twice a day, midodrine 10 mg 2 times a day, Protonix 40 mg a.c.b., Pulmicort inhaled twice a day, Renagel 3 times a day, Singulair 10 mg at bedtime, vitamin A and D affected area every 4 hours. LABORATORY DATA: Shows hemoglobin 12.3, hematocrit 40.2, WBC 9.2, platelet is 177. Sodium 137, potassium 3.8, chloride 98, bicarbonate 26, BUN 62, creatinine 5.9, glucose 286, phosphorus 3.7, calcium 9.1, total bili 0.6, AST 17, ALT 23, alk phos is 149. Albumin is 3.4. Microbiology; blood culture and nares culture, there is no growth. Has a venous ultrasound done which shows no sonographic evidence of deep vein thrombosis in the visualized segment of the both lower extremities. IMPRESSION: Status post respiratory failure with CO2 retention and hypoxemia, presently on room air, suspected hypoventilation syndrome, sleep apnea syndrome, renal failure, dialysis dependent, cardiomyopathy with pulmonary hypertension. Pulmonary point of view, doing well. Spoke to nursing staff. Will benefit from subacute rehab. Encourage BiPAP use upon discharge. Will benefit from attended sleep study as outpatient. Gastric prophylaxis. Fall precaution. Pressure ulcer precaution. May discontinue prednisone. Continue nebulizer treatment. Follow blood pressures closely. Joss Arias MD
--- NOTE | 2017-12-23 03:47 | PN ---
DATE: 12/22/2017 SUBJECTIVE: The patient was seen and examined at the bedside on 12/22/2017. Looking comfortable. Complaining about her leg pain. Today, she is got dialysis. No fever. No chills. No nausea, vomiting or diarrhea. No hematuria or hematochezia. PHYSICAL EXAMINATION: VITAL SIGNS: Blood pressure 103/51, heart rate 50, respiratory rate 18, temperature 99. HEENT: Head normocephalic, atraumatic. Eyes PERRLA. Extraocular muscles intact. Conjunctivae clear. Nose patent. Mucous membrane moist. NECK: Supple. No carotid bruit. No JVD or thyromegaly. CHEST: Bilaterally symmetrical. LUNGS: Bilateral equal air entry. HEART: S1 and S2 positive. ABDOMEN: Soft, nontender. No organomegaly. EXTREMITIES: Trace lower extremity edema. LABORATORY DATA: White blood cells 9.2, hemoglobin 12, hematocrit 40, platelets 177. Sodium 137, potassium 3.3, BUN 62, creatinine 5.9 and glucose 286. CURRENT MEDICATIONS: Reviewed by me. ASSESSMENT AND PLAN: Ms. Debby Olguin 72 years old lady status post pneumonia, respiratory failure, sepsis, renal insufficiency on hemodialysis 3 times a week, status post hypothyroidism, [id number] diabetes mellitus, hypertension, end-stage renal disease, congestive heart failure/cardiomyopathy/ventricular tachycardia. The patient is stable on dialysis. Continue ProAmatine. Continue antibiotics as per Infectious Disease. Physical therapy ordered. Because the patient was complaining about leg pain, stat Doppler of the legs done. No sonographic evidence of deep venous thrombosis in the visualized segment of both lower extremities. Repeat labs. We will follow up. Taylor House MD
[2017-12-23] MEDS: Albuterol-Ipratrop 3 mg / 0.5 (3 ml) UD IH SCH ×5 (04:40→20:23)
[2017-12-23] MEDS: Acetylcysteine 20% Inhal Soln (4ml) IH SCH (07:08)
[2017-12-23] MEDS: Budesonide 0.5 mg/2 ml Inhal Susp UD IH SCH (07:09)
[2017-12-23 07:53] VITALS: RESP 18
[2017-12-23] MEDS: Insulin Reg-HIGH-Coverage SC SCH ×2 (08:46→11:15)
[2017-12-23] MEDS: Pantoprazole 40 mg EC Tab PO SCH (08:47)
--- NOTE | 2017-12-23 10:00 | PN ---
DATE: 12/22/2017 REASON FOR CONSULTATION: Follow up cardiac evaluation, shortness of breath, COPD, pneumonia, history of PTCA, and history of coronary artery disease. SUBJECTIVE: The patient denies any chest pain or shortness of breath. OBJECTIVE: GENERAL: Not in apparent distress. VITAL SIGNS: Examination as follows, temperature afebrile, heart rate 50, blood pressure 103/61. HEENT: PERRLA. Extraocular muscles intact. NECK: Supple. No carotid bruit. No thyromegaly. CHEST: Clear to auscultation. HEART: S1 and S2 regular. ABDOMEN: Soft. EXTREMITIES: Clubbing and cyanosis negative. LABORATORY DATA: WBC 9.2, hemoglobin 12.3, hematocrit 40.2, and platelet count 177. Chemistry shows sodium 137, potassium 3.8, chloride 98, carbon dioxide 26, anion gap of 18, BUN 62, creatinine 5.9. IMPRESSION: A 72-year-old female with past medical history significant for end-stage renal disease on dialysis, history of coronary artery disease in the past, admitted with pneumonia and sepsis. While came in, the patient was wearing LifeVest from [facility] Repeat echocardiogram showed preserved left ventricular function, battery of the LifeVest ran out and since the patient has preserved left ventricular function, it is discontinued. No further arrhythmia noted. RECOMMENDATION: Continue metoprolol for blood pressure as tolerated. Continue antibiotic and CVA status is stable. We will sign off and be glad to follow p.r.n. Upon discharge, the patient will be followed up with JOAQUIN Cole, for evaluation of AICD in future as well as patient being followed by Dr. Sussy De La O and Dr. Motta. We will sign off and be glad to follow p.r.n. Continue SubQ heparin for DVT prophylaxis. Continue metoprolol 12.5 mg p.o. b.i.d. Thank you Dr. House for providing us the opportunity in taking care of the patient, Debby Olguin. Joss Bah MD
[2017-12-23] MEDS: Albuterol-Ipratrop 3 mg / 0.5 (3 ml) UD IH PRN (14:37)
[2017-12-23 15:15] VITALS: BP 121/53; PULSE 92; TEMP 98.6; O2SAT 94
--- NOTE | 2017-12-23 22:40 | CP.PCM.PN ---
Subjective - Date & Time of Evaluation Date of Evaluation: 12/23/17 Time of Evaluation: 14:00 - Subjective Subjective: Infectious Disease Follow Up: December 23, 2017 72 yo Albanian speaking female presenting to [facility] with back pain on sitting down. Patient was found to be hypotensive in ER. The patient has an extensive medical history that includes ESRD on HD, CAD, CHF with EF of 35%, occluded heart vessels, DM, HTN, and ischemic cardiomyopathy. The patient is unable to provide any additional information at this time. Blood pressure improved after 1L fluid bolus on admission. The patient is awake, alert, and orientated times 2 to 3 now. Maintained on nasal cannula with supplemental O2. The patient was hypotensive during an HD treatment that led to the patient being brought back to the MICU. The patient is awake and alert. Periods of confusion noted which does occur on this patient. No distress at this time but complaining of low back/buttocks pain. The patient is legally blind. Back on regular medical floor. Objective - Vital Signs/Intake and Output Vital Signs (last 24 hours): Temp Pulse Resp BP Pulse Ox 98.6 F 92 H 18 121/53 L 94 L 12/23/17 14:00 12/23/17 14:00 12/23/17 14:00 12/23/17 14:00 12/23/17 14:00 - Labs Labs: 12/22/17 13:15 12/22/17 13:15 - Constitutional Appears: Non-toxic, No Acute Distress, Chronically Ill - Head Exam Head Exam: ATRAUMATIC, NORMOCEPHALIC - Eye Exam Additional comments: legally blind - ENT Exam ENT Exam: Mucous Membranes Moist, Normal External Ear Exam, TM's Normal Bilaterally - Neck Exam Neck Exam: Full ROM, Normal Inspection - Respiratory Exam Respiratory Exam: Clear to Ausculation Bilateral, NORMAL BREATHING PATTERN. absent: Rales, Rhonchi, Wheezes - Cardiovascular Exam Cardiovascular Exam: REGULAR RHYTHM, RRR, +S1, +S2 - GI/Abdominal Exam GI & Abdominal Exam: Soft, Normal Bowel Sounds. absent: Distended, Tenderness - Extremities Exam Extremities Exam: Full ROM, Normal Inspection - Neurological Exam Neurological Exam: Alert, Awake, CN II-XII Intact Additional comments: Confusion - Psychiatric Exam Psychiatric exam: Normal Affect, Normal Mood - Skin Skin Exam: Intact, Normal Color Assessment and Plan - Assessment and Plan (Free Text) Assessment: 72 yo female known to me from previous hospitalizations to [facility] The patient with initial complaint of back pain on sitting down . Found to be hypotensiive at this time. Antibiotics and fluids started. The patient is more awake and alert compared to admission. Blood pressure has improved with 1L of fluids. Started on Aztreonam for antibiotic coverage with single dose of Vancomycin IV and Gentamicin IV. Nam cultures sent. No leukocytosis. Supportive care. If there is continued worsening, will have to consider use of Cefepime despite PCN allergy. Awaiting culture results. The patient is awake and alert now but still confused. The patient can follow commands. Not hypotensive at this time. Cultures with no growth at this time after 3 days. Maintain Broad antibiotic coverage at this time. No specific source of sepsis seen. Septic versus Cardiogenic shock on initial presentation. No specific infectious etiology found at this time. On Aztreonam at this time. Consider 7 to 10 days of antibiotics in total. More likely Cardiogenic in origin. Nearing completion of Aztreonam. The patient had hypotension in HD and was brought back to MICU. Procalcitonin during this hospitalization was 0.81 which is low for a septic picture. The patient completed 7 days of Aztreonam at this time. Stage II sacral decubiti dressed. No leukocytosis. Patient appears to be at her baseline mental and physical status. Remains off of antibiotics. On regular medical floor. Noted patient complaining of low back/buttocks pain. Thank you for allowing me to participate in the care of this patient, we will follow with you.
--- NOTE | 2017-12-24 02:06 | PN ---
DATE: 12/23/2017 PULMONARY PROGRESS NOTE REFERRING PHYSICIAN: Taylor House MD SUBJECTIVE: The patient is lying in the bed, head at 45 degrees. Night was unremarkable. Feels much better and wants to go home. No headache. No rhinitis. No cough. No nausea, vomiting or diarrhea. No leg pain or leg swelling. OBJECTIVE: GENERAL: In no acute distress. Temperature is 98, heart rate is 92, respiratory rate is 18, blood pressure 121/53, and pulse ox 94% on 3 L nasal cannula. HEENT: Moist mucous membranes. Crowded airway. Mallampati score is 4. NECK: Short thick neck. LUNGS: Has a fair airflow with rhonchi. HEART: S1 and S2. ABDOMEN: Soft and nontender. No organomegaly. EXTREMITIES: No edema. NEUROLOGIC: Awake, alert and follows simple command. MEDICATIONS: Reviewed and noted. No new changes in medications since yesterday. LABORATORY DATA: Reviewed and noted. Blood sugar this morning is 145. Microbiology; blood culture and nares cultures are unremarkable. IMPRESSION AND PLAN: Status post respiratory failure with CO2 retention and hypoxemia; chronic obstructive lung disease; renal failure, dialysis dependent; suspected hypoventilation syndrome with sleep apnea syndrome; cardiomyopathy; and pulmonary hypertension. Pulmonary point of view, doing well. Case discussed with nursing staff, also spoke to floor nurse practitioner. The patient may go home without steroids. Continue inhaled bronchodilator with gastric prophylaxis. Sleep apnea precautions, should have attended sleep study upon discharge as outpatient. Fall precaution. Recommended the patient should be going to subacute, apparently the patient and family refused understanding risk. Thank you and we will follow with you. Joss Arias MD
--- NOTE | 2017-12-24 08:35 | PN ---
DATE: 12/23/2017 SUBJECTIVE: The patient was seen together with a Japanese to Palestinian manager fitness. The patient states that her breathing is improved. She states that she has had no therapy and has been essentially in bed since transfer out of the CCU. She had 2 liters of fluid removed with dialysis yesterday. She has no lower extremity edema, but she does have puffiness of her right upper extremity. The patient is scheduled for a routine dialysis tomorrow. MEDICATIONS: Medication list reviewed. The patient is on acetylcysteine, Anusol, Benadryl, Claritin, Dulcolax, DuoNeb, DuoNeb, insulin, Lopressor, nystatin, ProAmatine, Protonix, Pulmicort, Renagel, Singulair, Tylenol, vitamin A and D, and Xylocaine p.r.n. OBJECTIVE: INTAKE/OUTPUT: Intake 480, output 2000 mL with dialysis. VITAL SIGNS: Blood pressure presently 121/53, temperature 98.6, respiratory rate 18 with a pulse of 92. Oxygen saturation is 94%. HEENT: Shows her to be normocephalic, atraumatic. Conjunctivae are pink. Sclerae are nonicteric. NECK: Supple. No neck vein distention. CHEST: Clear to auscultation and percussion with slight decreased breath sounds at the bases. No rales, rhonchi or wheezing. CARDIOVASCULAR: Shows a regular rate and rhythm with MR/TR. No S3, no S4, no rub. ABDOMEN: Obese. Mild distention. Soft, nontender. Bowel sounds are normal. No rebound, guarding or masses. EXTREMITIES: Show no lower extremity pitting edema. She does have puffiness with pitting edema of her right upper extremity. She has a right chest wall PermCath. LABORATORY DATA AND IMAGING DATA: Yesterday's CBC, white blood cell count 9.2, hemoglobin stable at 12.2 with a platelet count of 177,000. Chemistries from predialysis yesterday, BUN 62, creatinine 5.9. Electrolytes are normal. Last glucose was 214. Calcium 9.1, phosphorus 3.7. Last magnesium level was 1.9. Albumin level is 3.6. Microbiology, all cultures are negative. ASSESSMENT: 1. Status post right lower lobe pneumonia with exacerbation of asthma. The patient currently remains stable on inhalation therapy. She had completed a course of IV antibiotic therapy. From a Pulmonary standpoint, she is back to baseline. 2. History of end-stage renal disease. The patient will continue on Friday, Friday, and Friday dialysis. We will try and increase ultrafiltration as tolerated tomorrow, but her blood pressures do run low. 3. History of atherosclerosis heart disease, status post percutaneous transluminal coronary angioplasty and stent, history of cardiomyopathy with MR/TR. Last echocardiogram done at [facility] showed an ejection fraction of 50%, which is improved from 30% seen at [facility] in the early fall. 4. History of anemia. Hemoglobin is excellent in the 12-13 range. No Aranesp necessary. 5. History of secondary hyperparathyroidism with controlled phosphorus levels. The patient will continue on a renal diet along with binder therapy. 6. Hypotension. The patient will continue receiving ProAmatine 10 mg three times a day, receiving a dose prior to dialysis. PLAN: 1. Discussed with staff on 5R. Would like the patient to get out of bed and start an attempt at rehabilitation with physical therapy. 2. Continue inhalation therapy with BiPAP as necessary at night. 3. Pulmonary followup appreciated. 4. We will discuss with dialysis team and attempt to increase ultrafiltration tomorrow to decrease the edema of her right upper extremity. Nishant Mack MD
== END 2017-12-23 19:51 | disposition home or self-care (01) | DRG 871 ==
LOC: ED 09:05 → ERH 10:17 → CCU 17:00 → 2RNO 12-14 12:45 → CCU 12-15 14:28 → 2RSO 12-18 19:17 → 5RNO 12-20 16:02
PROVIDERS: ADMIT Internal Medicine; ATTEND Internal Medicine
PROC: 5A1D70Z Performance of Urinary Filtration, Intermittent, Less than 6 Hours Per Day (ICD-10-PCS; 2017-12-09)
PROC: 5A1D70Z Performance of Urinary Filtration, Intermittent, Less than 6 Hours Per Day (ICD-10-PCS; 2017-12-10)
PROC: 5A1D70Z Performance of Urinary Filtration, Intermittent, Less than 6 Hours Per Day (ICD-10-PCS; 2017-12-11)
PROC: 5A1D70Z Performance of Urinary Filtration, Intermittent, Less than 6 Hours Per Day (ICD-10-PCS; 2017-12-12)
PROC: 5A1D70Z Performance of Urinary Filtration, Intermittent, Less than 6 Hours Per Day (ICD-10-PCS; 2017-12-13)
PROC: 5A1D70Z Performance of Urinary Filtration, Intermittent, Less than 6 Hours Per Day (ICD-10-PCS; 2017-12-15)
PROC: 06H033Z Insertion of Infusion Device into Inferior Vena Cava, Percutaneous Approach (ICD-10-PCS; 2017-12-16)
PROC: B54CZZA Ultrasonography of Left Lower Extremity Veins, Guidance (ICD-10-PCS; 2017-12-16)
PROC: 5A09457 Assistance with Respiratory Ventilation, 24-96 Consecutive Hours, Continuous Positive Airway Pressure (ICD-10-PCS; principal; 2017-12-17)
PROC: 5A1D70Z Performance of Urinary Filtration, Intermittent, Less than 6 Hours Per Day (ICD-10-PCS; 2017-12-17)
PROC: 5A1D70Z Performance of Urinary Filtration, Intermittent, Less than 6 Hours Per Day (ICD-10-PCS; 2017-12-18)
PROC: 5A1D70Z Performance of Urinary Filtration, Intermittent, Less than 6 Hours Per Day (ICD-10-PCS; 2017-12-19)
PROC: 5A1D70Z Performance of Urinary Filtration, Intermittent, Less than 6 Hours Per Day (ICD-10-PCS; 2017-12-22)
DX: A41.9 Sepsis, unspecified organism (principal); J18.1 Lobar pneumonia, unspecified organism; N18.6 End stage renal disease; G92 Toxic encephalopathy; J96.22 Acute and chronic respiratory failure with hypercapnia; J96.21 Acute and chronic respiratory failure with hypoxia; R65.21 Severe sepsis with septic shock; I50.31 Acute diastolic (congestive) heart failure; I13.2 Hypertensive heart and chronic kidney disease with heart failure and with stage 5 chronic kidney disease, or end stage renal disease; E87.2 Acidosis; N25.81 Secondary hyperparathyroidism of renal origin; J44.1 Chronic obstructive pulmonary disease with (acute) exacerbation; J44.0 Chronic obstructive pulmonary disease with (acute) lower respiratory infection; I43 Cardiomyopathy in diseases classified elsewhere; I47.2 Ventricular tachycardia; J98.11 Atelectasis; K56.7 Ileus, unspecified; M86.9 Osteomyelitis, unspecified; N17.9 Acute kidney failure, unspecified; I25.10 Atherosclerotic heart disease of native coronary artery without angina pectoris; E11.22 Type 2 diabetes mellitus with diabetic chronic kidney disease; Z99.2 Dependence on renal dialysis; I25.5 Ischemic cardiomyopathy; E11.319 Type 2 diabetes mellitus with unspecified diabetic retinopathy without macular edema; D63.1 Anemia in chronic kidney disease; I27.29 Other secondary pulmonary hypertension; I48.0 Paroxysmal atrial fibrillation; L89.222 Pressure ulcer of left hip, stage 2; L89.152 Pressure ulcer of sacral region, stage 2; I50.82 Biventricular heart failure; F03.90 Unspecified dementia, unspecified severity, without behavioral disturbance, psychotic disturbance, mood disturbance, and anxiety; E03.9 Hypothyroidism, unspecified; E11.65 Type 2 diabetes mellitus with hyperglycemia; E66.01 Morbid (severe) obesity due to excess calories; E78.5 Hyperlipidemia, unspecified; E83.39 Other disorders of phosphorus metabolism; E87.8 Other disorders of electrolyte and fluid balance, not elsewhere classified; G47.30 Sleep apnea, unspecified; H40.9 Unspecified glaucoma; H54.8 Legal blindness, as defined in USA; I08.1 Rheumatic disorders of both mitral and tricuspid valves; I27.81 Cor pulmonale (chronic); I45.10 Unspecified right bundle-branch block; I95.3 Hypotension of hemodialysis; I95.89 Other hypotension; K62.89 Other specified diseases of anus and rectum; E11.69 Type 2 diabetes mellitus with other specified complication; Z79.84 Long term (current) use of oral hypoglycemic drugs; Z79.899 Other long term (current) drug therapy; Z86.73 Personal history of transient ischemic attack (TIA), and cerebral infarction without residual deficits; Z86.79 Personal history of other diseases of the circulatory system; Z87.01 Personal history of pneumonia (recurrent); Z90.49 Acquired absence of other specified parts of digestive tract; Z90.710 Acquired absence of both cervix and uterus; Z95.5 Presence of coronary angioplasty implant and graft

== ENCOUNTER 2018-01-12 15:46 | Inpatient (IN) | payer MEDICARE, OTHER ==
[2018-01-12 15:46] VITALS: BMI 32.3
[2018-01-12] MEDS ORDERED: Sodium Chloride 0.9% 500 ML IV STA (16:08)
--- NOTE | 2018-01-12 16:33 | ED PDOC ---
Arrival/HPI - General Chief Complaint: Medical Clearance Time Seen by Provider: 01/12/18 15:58 Historian: Patient - History of Present Illness Narrative History of Present Illness (Text): 01/12/18 16:08 73 year old female, with past medical history of ESRD on hemodialysia (M/W/F), diabetes, hypertension, CAD with coronary stent placement, and anemia, who presents to the Emergency department from dialysis center for evaluation of hypotension and dizziness prior to arrival. Patient states she was finishing up her dialysis today when she gradually experienced dizziness and was subsequently referred to the ED for medical evaluation. Upon arrival to the ED patient reports persistent dizziness and her BP was measured to be 60 systolic. Patient denies any other associated somatic complaints. Patient denies any fevers, chills, headache, chest pain, shortness of breath, dyspnea on exertion, cough, abdominal pain, nausea, vomiting, diarrhea, back pain, neck pain, or any other complaints. PMD: Dr. House Forest Examiner: Dr. Snow Time/Duration: Prior to Arrival Symptom Onset: Gradual Symptom Course: Unchanged Activities at Onset: Light Context: Other (Dialysis) Past Medical History - Provider Review Nursing Documentation Reviewed: Yes - Infectious Disease Hx of Infectious Diseases: None - Tetanus Immunization Tetanus Immunization: Unknown - Reproductive Menopause: No - Cardiac Hx Cardiac Disorders: Yes (CAD, coronary stent placement,) Hx Hypertension: Yes - Pulmonary Hx Chronic Obstructive Pulmonary Disease (COPD): Yes - Neurological HX Cerebrovascular Accident: Yes - HEENT Hx HEENT Disorder: Yes Hx Blind: Yes (legally blind) Hx Cataracts: Yes Hx Glaucoma: Yes Other/Comment: mastoiditis - Renal Hx Renal Failure: Yes - Endocrine/Metabolic Hx Diabetes Mellitus Type 2: Yes - Hematological/Oncological Hx Blood Disorders: Yes Hx Anemia: Yes (blood transfusion) Hx Shingles: Yes - Integumentary Hx Dermatological Disorder: Yes (ble cellulitis) Other/Comment: ble +2 pitting edema multiple skin discolorations, lue multiple skin discoloratins, old mid abd surgical scar, dark brown skin to b/l groin, brown discolored to b/l lower abd, optifoam over stage 2 split in skin over butt [id number] x 0.2cm - Musculoskeletal/Rheumatological Hx Arthritis: Yes - Gastrointestinal Hx Gastrointestinal Disorders: Yes (obese) - Genitourinary/Gynecological Hx Genitourinary Disorders: Yes (anuria) - Psychiatric Hx Psychophysiologic Disorder: Yes Hx Depression: Yes Hx Emotional Abuse: No Hx Physical Abuse: No Hx Substance Use: No - Past Surgical History Past Surgical History: No Previous - Surgical History Hx Cholecystectomy: Yes Hx Coronary Stent: Yes Hx Hysterectomy: Yes Other/Comment: lav graft removal graft, dialysis access rt upper chest wall - Anesthesia Hx Anesthesia Reactions: No Hx Malignant Hyperthermia: No - Suicidal Assessment Feels Threatened In Home Enviroment: No Family/Social History - Physician Review Nursing Documentation Reviewed: Yes Family/Social History: Unknown Family HX Smoking Status: Never Smoked Hx Alcohol Use: No Hx Substance Use: No Hx Substance Use Treatment: No Allergies/Home Meds Allergies/Adverse Reactions: Allergies FISH Allergy (Verified 01/12/18 17:40) URTICARIA morphine Allergy (Verified 01/12/18 17:40) ANAPHYLAXIS oxycodone Allergy (Verified 01/12/18 17:40) ANAPHYLAXIS Penicillins Allergy (Verified 01/12/18 17:40) ANAPHYLAXIS steroids Allergy (Uncoded 01/12/18 17:40) ANAPHYLAXIS Home Medications: Home Meds Medication Instructions Recorded Confirmed RX: Brimonidine 0.2% [Alphagan 1 drop OD TID 11/19/15 12/08/17 0.2% Opht] Ferrous Sulfate [Feosol] 325 mg PO DAILY 07/07/17 12/08/17 Sevelamer Carbonate [Renvela] 1,600 mg PO TID 07/07/17 12/08/17 Insulin Lispro [humALOG] 0 units SC QID MDD sliding scale 12/08/17 12/08/17 up to 7units Mupirocin 2% Cream [Bactroban 30 gm EXT DAILY 12/08/17 12/08/17 Cream] RX: Folic Acid 1 mg PO DAILY 12/08/17 12/08/17 RX: Insulin Glargine, Recombina 10 units SC Q12 12/08/17 12/08/17 [Lantus] Review of Systems - Physician Review All systems were reviewed & negative as marked: Yes - Review of Systems Constitutional: absent: Fevers Respiratory: absent: SOB, Cough Cardiovascular: absent: Chest Pain Gastrointestinal: absent: Abdominal Pain, Diarrhea, Nausea, Vomiting Genitourinary Female: absent: Dysuria, Urine Output Changes Musculoskeletal: absent: Back Pain, Neck Pain Neurological: Dizziness. absent: Headache Physical Exam Vital Signs Reviewed: Yes Vital Signs Temp Pulse Resp BP Pulse Ox 01/12/18 15:52 98.9 F 80 18 73/52 L 99 Temperature: Afebrile Blood Pressure: Hypotensive Pulse: Regular Respiratory Rate: Normal Appearance: Positive for: Well-Appearing, Non-Toxic, Comfortable Pain Distress: None Mental Status: Positive for: Alert and Oriented X 3 - Systems Exam Head: Present: Atraumatic, Normocephalic Pupils: Present: PERRL Extroacular Muscles: Present: EOMI Conjunctiva: Present: Normal Respiratory/Chest: Present: Clear to Auscultation, Good Air Exchange, Other (right chest wall shiley catheter). No: Respiratory Distress, Accessory Muscle Use Cardiovascular: Present: Regular Rate and Rhythm, Normal S1, S2. No: Murmurs Abdomen: No: Tenderness, Distention, Peritoneal Signs Back: Present: Normal Inspection Upper Extremity: Present: Other (right AV graft ). No: Cyanosis, Edema Lower Extremity: Present: Edema (+1 pitting edema bilaterally) Neurological: Present: GCS=15, CN II-XII Intact, Speech Normal Skin: Present: Warm, Dry, Normal Color. No: Rashes Psychiatric: Present: Alert, Oriented x 3, Normal Insight, Normal Concentration Medical Decision Making ED Course and Treatment: 01/12/18 16:08 Impression: 73 year old female presents to the Emergency department complaining of dizziness. Differential Diagnosis included but are not limited to: Hypovolemic secondary to dialysis Plan: -- EKG -- Labs -- Chest X-ray -- IV Fluids -- Zofran -- Reassess and disposition Prior Visits: Notes and results from previous visits were reviewed. Progress Notes: EKG: Ordered, reviewed, and independently interpreted the EKG, shows A-fib @ 70 bpm. 01/12/18 18:21 Chest X-ray reviewed by radiologist, shows: Right lower lobe infiltrate/pleural effusion unchanged compared to the prior study. 01/12/18 19:26 Case was discussed with Dr. House who will admit the patient to her service. CXR unchanged from previous, most likely pleural effusion. WBC normal. No fever. - RAD Interpretation Radiology Orders: 01/12/18 16:09 CHEST PORTABLE [RAD] Stat Security Director: Radiologist - Medication Orders Current Medication Orders: Sodium Chloride (Sodium Chloride 0.9%) 500 mls @ 999 mls/hr IV .Q31M STA Stop: 01/12/18 16:38 Discontinued Medications Ondansetron HCl (Zofran Inj) 4 mg IVP STAT STA Stop: 01/12/18 16:10 - Scribe Statement The provider has reviewed the documentation as recorded by the Scribe Jose Laguerre. All medical record entries made by the Scribe were at my direction and personally dictated by me. I have reviewed the chart and agree that the record accurately reflects my personal performance of the history, physical exam, medical decision making, and the department course for this patient. I have also personally directed, reviewed, and agree with the discharge instructions and disposition. Disposition/Present on Arrival - Present on Arrival Any Indicators Present on Arrival: No History of DVT/PE: No History of Uncontrolled Diabetes: No Urinary Catheter: No History of Decub. Ulcer: No History Surgical Site Infection Following: None - Disposition Have Diagnosis and Disposition been Completed?: Yes Diagnosis: Hypotension Disposition: HOSPITALIZED Disposition Time: 19:27 Patient Plan: Observation Condition: FAIR Forms: [employer] ([place]ien)
[2018-01-12 16:59] LABS: BASO # 0.01 K/mm3 (0.0-2.0); BASO % 0.2 % (0.0-3.0); EOS # 0.1 (0.0-0.7); EOS % 2.1 % (1.5-5.0); GRAN # 3.2 (1.4-6.5); GRAN % 65.8 % (50.0-68.0); HEMOGLOBIN 10.6 g/dL (12.0-16.0); LYMPH # 0.9 (1.2-3.4); LYMPH % 17.7 % (22.0-35.0); MEAN CELL VOLUME 113.2 fl (80.0-105.0); MEAN CORPUSCULAR HEMOGLOBIN 35.1 pg (25.0-35.0); MEAN PLATELET VOLUME 10.8 fl (7.0-11.0); MONO # 0.7 (0.1-0.6); MONO % 14.2 % (1.0-6.0); RBC 3.02 10^6/uL (3.5-6.1); RED CELL DISTRIBUTION WIDTH 15.5 % (11.5-14.5); WHITE BLOOD COUNT 4.9 10^3/uL (4.5-11.0)
[2018-01-12 17:20] LABS: CALCIUM 8.4 mg/dL (8.4-10.5); TROPONIN I 0.02 ng/mL
--- NOTE | 2018-01-12 18:30 | RAD ---
Date of service: 01/12/2018 HISTORY: Hypotension. COMPARISON: 12/16/2017. FINDINGS: LUNGS: Stable infiltrate/atelectasis right lower lobe. PLEURA: No change CARDIOVASCULAR: Stable cardiomegaly. Venous access catheter in stable, satisfactory position. Atherosclerotic calcifications identified primarily aortic arch. OSSEOUS STRUCTURES: No significant abnormalities. VISUALIZED UPPER ABDOMEN: Normal. OTHER FINDINGS: None. IMPRESSION: Right lower lobe infiltrate/pleural effusion unchanged compared to the prior study.
--- NOTE | 2018-01-12 18:39 | CARD ---
APPROVED REPORT Date of service: 01/12/2018 EKG Measurement Heart [id number] <Conclusion> Normal sinus rhythm frequent premature atrial complexes. Low voltage QRS Abnormal ECG
[2018-01-12] MEDS ORDERED: Albuterol-Ipratrop 3 mg / 0.5 (3 ml) UD ONE (22:31)
[2018-01-13 00:46] LABS: TROPONIN I 0.03 ng/mL
[2018-01-13] MEDS ORDERED: Albuterol-Ipratrop 3 mg / 0.5 (3 ml) UD IH STA (05:22)
[2018-01-13] MEDS: Brimonidine 0.15% 50 DROP/5 ML BOTTLE OD SCH ×3 (06:39→22:45)
[2018-01-13 06:41] LABS: IRON 59 ug/dL (45-180)
[2018-01-13 06:43] LABS: CALCIUM 8.6 mg/dL (8.4-10.5)
[2018-01-13 06:50] LABS: % IRON SATURATION 31 % (20-55); TOTAL IRON BINDING CAPACITY 189 ug/dL (265-497)
[2018-01-13 07:05] LABS: HEMOGLOBIN 10.4 g/dL (12.0-16.0); MEAN CELL VOLUME 116.2 fl (80.0-105.0); MEAN CORPUSCULAR HGB CONC 30.1 g/dl (31.0-37.0); MEAN PLATELET VOLUME 11.5 fl (7.0-11.0); RBC 2.97 10^6/uL (3.5-6.1); WHITE BLOOD COUNT 4.8 10^3/uL (4.5-11.0)
[2018-01-13] MEDS: Albuterol-Ipratrop 3 mg / 0.5 (3 ml) UD IH SCH ×4 (07:44→23:00)
--- NOTE | 2018-01-13 08:24 | HP ---
DATE OF EXAM: 01/12/2018 The patient is 73 years old female. The patient was seen and examined at the bedside on 01/12/2018. CHIEF COMPLAINT: Low blood pressure, dizziness. HISTORY OF PRESENT ILLNESS: Ms. Debby Olguin, 73-year-old female, with past medical history of hemodialysis, end-stage renal disease, 3 times a week; diabetes mellitus; hypertension; coronary artery disease with coronary artery stent placement; anemia; brought to the emergency department from dialysis center for evaluation of hypotension, dizziness. The patient states she was finishing up her dialysis today when she gradually experienced dizziness and was subsequently referred to the emergency room department for medical evaluation. Discussion done with ER physician. Upon arrival in the ED report, the patient was still dizzy, blood pressure systolic in the 60s. No nausea, vomiting, diarrhea. No hematuria or hematochezia. No fever. No chills. PAST MEDICAL HISTORY: As above, renal failure, on hemodialysis 3 times a week; diabetes mellitus; hypertension; COPD; cerebrovascular accident; legally blind; history of mastoiditis; anemia, status post blood transfusion; arthritis; depression; cholecystectomy; hysterectomy; coronary artery disease with cardiac stenting. FAMILY HISTORY: Father and mother noncontributory. HABITS: No smoking. No drugs. No ethanol. ALLERGIES: THE PATIENT IS ALLERGIC WITH FISH, GETTING URTICARIA; MORPHINE; OXYCODONE; PENICILLIN; AND STEROIDS. HOME MEDICATIONS: , iron, Renvela, folic acid, and insulin. REVIEW OF SYSTEMS: The patient was seen and examined. No nausea, vomiting, diarrhea. No hematuria, hematochezia. No swelling of the leg. No chest pain. No palpitation. No headache. No dizziness at that moment. PHYSICAL EXAMINATION VITAL SIGNS: Temperature 98.9, pulse 80, respiratory rate 18, blood pressure 73/52, pulse oximetry 99. HEENT: Head normocephalic, atraumatic. Eyes; PERRLA. Extraocular muscles are intact. Conjunctivae clear. Nose patent. Mucous membranes moist. NECK: Supple. No carotid bruits. No JVD, thyromegaly. CHEST: Bilaterally symmetrical. HEART: S1, S2 positive. LUNGS: Clear to auscultation. ABDOMEN: Soft. Bowel sounds present. No organomegaly. EXTREMITIES: No edema. No cyanosis. NEUROLOGICAL: The patient is awake, alert. Moving all 4 extremities. No focal deficits. LABORATORY DATA: White blood cells 4.9, hemoglobin 10.6, hematocrit 34.2, platelets 134. Sodium 134, potassium 4, BUN 15, creatinine 2.6, glucose 154. ASSESSMENT AND PLAN: Ms. Debby Olguin, 73 years old female, with anemia, hyperchloremia, renal insufficiency, hyperglycemia, congestive heart failure. Chest x-ray done, electrocardiogram done. The patient has a history of renal failure, on hemodialysis 3 times a week. End of the dialysis, she felt that she is having headache and dizziness. History of hypertensive coronary artery disease with cardiac stenting, history of blood transfusion. We kept the patient, IV fluid given. We will observe 24 hours. Nephrology consult called. We will repeat labs. We will follow up. Taylor House MD
[2018-01-13] MEDS: Insulin Reg-LOW-Coverage SC SCH ×4 (09:26→22:44)
--- NOTE | 2018-01-13 10:50 | CP.PCM.PN ---
Subjective - Date & Time of Evaluation Date of Evaluation: 01/13/18 Time of Evaluation: 08:00 - Subjective Subjective: Clinical Care Coordination Note S: Seen and examined 73 y/o F arrived to ED with c/o dizziness, nausea and noted to be hypotensive during hemodialysis in the ED SBP was in the 60's. IVF initiated was given a 500cc 0.9 saline bolus and zofran for nausea. Objective - Vital Signs/Intake and Output Vital Signs (last 24 hours): Temp Pulse Resp BP Pulse Ox 98.5 F 70 18 84/38 L 96 01/13/18 08:27 01/13/18 09:33 01/13/18 08:27 01/13/18 09:33 01/13/18 08:27 Intake and Output: 01/13/18 01/13/18 06:59 18:59 Intake Total 240 Output Total 0 Balance 240 - Medications Medications: Current Medications Acetaminophen (Tylenol 325mg Tab) 650 mg PO Q4H PRN PRN Reason: Fever >100.5 F Last Admin: 01/13/18 04:39 Dose: 650 mg Albuterol/Ipratropium (Duoneb 3 Mg/0.5 Mg (3 Ml) Ud) 3 ml IH QIDRESP [facility] Last Admin: 01/13/18 07:44 Dose: 3 ml Atorvastatin Calcium (Lipitor) 20 mg PO DIN [facility] Brimonidine Tartrate (Alphagan P 0.15% Opht) 0 drop OD Q8 [facility] Last Admin: 01/13/18 06:39 Dose: 1 drop Ferrous Sulfate (Feosol) 324 mg PO DAILY [facility] Last Admin: 01/13/18 09:30 Dose: 324 mg Folic Acid (Folic Acid) 1 mg PO DAILY [facility] Last Admin: 01/13/18 09:29 Dose: 1 mg Gabapentin (Neurontin) 100 mg PO DAILY [facility]; Protocol Last Admin: 01/13/18 09:30 Dose: 100 mg Insulin Detemir (Levemir) 10 unit SC ACBHS [facility] Insulin Human Regular (Humulin R Low) 0 units SC ACHS [facility]; Protocol Last Admin: 01/13/18 09:26 Dose: 1 unit Latanoprost (Xalatan Opht) 0 ml OD HS [facility] Metoprolol Tartrate (Lopressor) 12.5 mg PO Q12 [facility] Last Admin: 01/13/18 09:33 Dose: Not Given Midodrine (Proamatine) 10 mg PO TID [facility] Montelukast Sodium (Singulair) 10 mg PO HS [facility] Mupirocin (Bactroban Ointment) 0 gm EXT DAILY [facility] Sevelamer HCl (Renagel) 1,600 mg PO WM [facility] Last Admin: 01/13/18 09:33 Dose: 1,600 mg - Labs Labs: 01/13/18 06:00 01/13/18 06:00 - Constitutional Appears: Non-toxic, No Acute Distress, Chronically Ill - Head Exam Head Exam: ATRAUMATIC - Eye Exam Eye Exam: EOMI, Normal appearance, PERRL Pupil Exam: NORMAL ACCOMODATION - ENT Exam ENT Exam: Normal Exam - Neck Exam Neck Exam: Full ROM - Respiratory Exam Respiratory Exam: Decreased Breath Sounds, Prolonged Expiratory Phase, Rales Additional comments: slightly labored on exertion, mild JVD - Cardiovascular Exam Cardiovascular Exam: Irregular Rhythm, +S1, +S2 Additional comments: life vest: diastolic CHF, MR, TR, , RHF - GI/Abdominal Exam GI & Abdominal Exam: Distended, Firm, Normal Bowel Sounds Additional comments: anasarca presentation - Rectal Exam Rectal Exam: Deferred - Extremities Exam Extremities Exam: Full ROM, Normal Capillary Refill, Pedal Edema Additional comments: RUE edema, bilateral LE edema - Back Exam Back Exam: Full ROM, NORMAL INSPECTION - Neurological Exam Neurological Exam: Alert, Awake, CN II-XII Intact, Oriented x3 Neuro motor strength exam: Left Upper Extremity: 5, Right Upper Extremity: 5, Left Lower Extremity: 4, Right Lower Extremity: 4 - Psychiatric Exam Psychiatric exam: Normal Affect, Normal Mood - Skin Skin Exam: Abrasion, Warm Additional comments: venous statsis, ecchymotic areas of extremities, stage II sacral decubitus, skin tears. Assessment and Plan - Assessment and Plan (Free Text) Assessment: Seen and examined 73 y/o F arrived to ED with c/o dizziness, nausea and noted to be hypotensive during hemodialysis in the ED SBP was in the 60's. IVF initiated was given a 500cc 0.9 saline bolus and zofran for nausea. Today dizziness is resolved patient without any complaints, denies [place], dizziness, fever, chills, SOB, cough, hemoptysis, chest pain, abdominal pain, N/V/D, hematemesis or rectal bleeding. SBP noted to be in the 80's patient does appear to be responding appropriately to Midodrine will continue to reassess. A: Hypotension P: Midodrine initiated VS q4hrs prn Lopressor 12.5 q12hrs will hold if SBP<100 HR<55 orthostatic blood pressure daily Cardiology and Renal on consult ESRD HD 3x/week renal will assess additional needs. PT eval pending for cardiopulmonary evaluation. Medications as per APR 18 2-3L NC PRN will assess need/demand will follow closely.
[2018-01-13] MEDS: Insulin Detemir 100 units/ml Vial (Levemir) SC SCH ×2 (12:40→22:54)
[2018-01-13 13:14] LABS: FOLATE 19.3 ng/mL
--- NOTE | 2018-01-13 19:53 | CON ---
DATE: 01/13/2018 LOCATION: The patient is in room 375, bed 1. REASON FOR CONSULTATION: Hypotension; coronary artery disease, history of stent insertion; renal failure, on dialysis. HISTORY OF PRESENT ILLNESS: The patient is a 73-year-old female, known case of renal failure, on dialysis three times a week, post dialysis developed hypotension and was brought to emergency room where blood pressure was low and the patient was also feeling dizzy. She was symptomatic, so she was admitted to the hospital. The patient denies any chest pain, shortness of breath, palpitation. The patient is a known case of coronary artery disease, had the stent insertion in 12/2014 and then 12/2015. The patient had an echo on 07/10/2017, which showed LV ejection fraction 50% to 55%, trace aortic regurgitation, moderate mitral regurgitation, moderate to severe tricuspid regurgitation with RVSP 42 mmHg, flattened septum consistent of RV pressure and volume overload. The patient now sitting in chair, denies any chest pain, shortness of breath, dizziness, or palpitation. PAST MEDICAL HISTORY: Significant for diabetes; hypertension; end-stage renal failure, on dialysis; hyperlipidemia; coronary artery disease, stent insertion 12/2014 and 12/2015. She follows with Dr. Sussy De La O's group and Dr. Motta. The patient also known to have COPD. The patient was also evaluated by Dr. Tuttle of the same group, ground operations supervisor for AICD insertion. The patient is following with that group. The patient gets dialysis on Friday, Friday, and Friday. PREVIOUS CARDIAC WORKUP: As mentioned above, the patient has a history of coronary artery disease, stent insertion in 12/2014 and 12/[address] Sussy Love group and Dr. Motta. The patient was also seen by the same group ground operations supervisor, Dr. Tuttle. The patient's echo on 07/10/2017 showed ejection fraction of 50% to 55%, trace aortic regurgitation, moderate mitral regurgitation, moderate to severe tricuspid regurgitation, RVSP 42 mmHg, flattened septum consistent with RV pressure and volume overload. PERSONAL HISTORY: Denies smoking. Denies alcohol abuse. ALLERGIES: THE PATIENT DENIES ANY ALLERGIES. PHYSICAL EXAMINATION: VITAL SIGNS: Blood pressure now 84/38, on coming to the emergency room blood pressure was systolic around 73 with diastolic 52; respirations about 18; pulse 70; temperature 98.5. HEENT: Head is normocephalic. Eyes, pupils normal. Conjunctivae, slightly pale. NECK: JVP low. Carotid equal. THORAX: AP diameter normal. LUNGS: No rales. CARDIOVASCULAR: S1, S2. ABDOMEN: Soft. No tenderness. No organomegaly. EXTREMITIES: No clubbing, no cyanosis. LABORATORY DATA: WBC 4.8, hemoglobin 10.4, hematocrit 34.5, platelets 148. Sodium 135, potassium 4.4, BUN 18, creatinine 3.2. Random sugar 158. The patient's troponin is negative. Yesterday, NT-pro B-type natriuretic peptide was 21,900. EKG, very poor quality EKG, looks like sinus rhythm and PAC with low voltage. Chest x-ray showed stable infiltrate in right lower lobe and possible effusion versus atelectasis in the right lower lobe and this x-ray does not show any change compared to previous admission x-rays. DIAGNOSES: Hypotension, symptomatic with dizziness, post dialysis, which is improving; coronary artery disease, history of stent insertion 12/2014 and 12/2015; end-stage renal disease, on dialysis on Friday, Friday, Friday; obesity; chronic obstructive pulmonary disease. Previously, the patient was told to have cardiomyopathy, there was of automated implantable cardioverter defibrillator insertion. The patient's recent echo as mentioned above showed improvement in ejection fraction. Infiltrate in the lung and atelectasis versus small effusion in the right base. PLAN: The patient is on DuoNeb and nebulizer therapy, ferrous sulfate 324 mg p.o. daily, folic acid 1 mg daily, insulin as ordered, atorvastatin 20 mg daily, metoprolol 12.5 mg every 12 hours, Neurontin 100 mg p.o. daily, midodrine 10 mg p.o. t.i.d., Renagel 1600 mg p.o. Singulair 10 mg h.s. We will continue present therapy and we will monitor the patient with you and follow with you. Joss Millan MD
--- NOTE | 2018-01-13 20:02 | CON ---
DATE: 01/13/2018 The patient is admitted for Dr. House. REFERRING PROVIDER: Dr. House. REASON FOR CONSULTATION: To provide dialysis services for a patient well known to me, who presents to the hospital with low blood pressure post dialysis and a possible fall at home. HISTORY OF PRESENT ILLNESS: The patient is a 73-year-old Tajik-speaking female with a history of end-stage renal disease secondary to longstanding diabetes mellitus, the patient is on chronic maintenance dialysis. She has had recent hospitalizations for pneumonia. She has a history of hypotension with low blood pressures despite minimal ultrafiltration with dialysis and ProAmatine. History of anemia secondary to chronic kidney disease. History of secondary hyperparathyroidism. History of asthma with frequent exacerbations secondary to bronchitis and pneumonia. The patient had her usual outpatient dialysis yesterday. She was severely hypotensive post dialysis. It is unclear whether or not the patient might have had a fall at home. The patient was brought over to the emergency room post dialysis yesterday because of severe hypotension and dizziness. Again, this issue has been ongoing and chronic in nature. The patient is scheduled for her next dialysis on 01/14/2018. PAST MEDICAL HISTORY: Significant for that of end-stage renal disease, on chronic maintenance hemodialysis; history of IDDM; history of ASHD, status post PTCA stent; history of cardiomyopathy, last ejection fraction was improved at 50%, mitral regurgitation/tricuspid regurgitation; history of anemia secondary to chronic kidney disease; history of secondary hyperparathyroidism; history of hypotension; history of recent pneumonias with exacerbation of her asthma. The patient has had multiple failed attempts at AV fistula placement. The patient has chronic anemia secondary to inability to adequately ultrafiltrate her. MEDICATIONS: Medications at home include that of Renvela, mupirocin, Singulair, ProAmatine, Lopressor, eyedrops, Lantus insulin, Neurontin, folic acid, Feosol, Lipitor, DuoNeb, Tylenol, sliding-scale insulin, subcu heparin, and Tylenol. ALLERGIES: THE PATIENT IS ALLERGIC TO FISH, MORPHINE, OXYCODONE, PENICILLIN, AND STEROIDS. SOCIAL HISTORY: No history of cigarette smoking. No history of alcohol use. FAMILY HISTORY: As per old charts, unchanged. REVIEW OF SYSTEMS: Ten plus systems reviewed with the patient through the awning assembler. Appetite and weight have been stable. ENT: Denies any hearing or visual problems. PULMONARY: Positive chronic shortness of breath. History of asthma, history of likely mild hypervolemia secondary to hypotension and inability to adequately ultrafiltrate her. CARDIAC: History is stable, history of ASHD, status post PTCA stent, history of cardiomyopathy with MR/TR. GASTROINTESTINAL: No nausea, vomiting. No diarrhea. No abdominal pain. No constipation. GENITOURINARY: No significant urine output secondary to her having end-stage renal disease. OSTEOPATHY DOCTOR: Postmenopausal. ENDOCRINE: Positive history of IDDM with micro and macro vascular complications. MUSCULOSKELETAL: No ongoing issues. NEURO: History of diabetic neuropathy. HEME-ONC: History of anemia secondary to chronic kidney disease. No history of malignancy. PSYCHIATRIC: History is negative. PHYSICAL EXAMINATION: GENERAL: The patient is currently seen on 3R remote telemetry. She appears to be in no acute distress. She does remain chronically hypotensive. She does have mild dyspnea on exertion. VITAL SIGNS: Blood pressure is 84/38, temperature is 98.5, pulse of 70 with a respiratory rate of 18. oxygen saturation is 96% on nasal cannula 2 liters per minute. HEENT: Exam shows her to be normocephalic, atraumatic. Conjunctivae are pale. Sclerae are nonicteric. Pupils equal, reactive to light and accommodation. Extraocular muscles are intact. Posterior pharynx is normal. NECK: Supple. No neck vein distention. No thyromegaly. No lymphadenopathy. No bruits. CHEST: Clear to auscultation and percussion with slight decreased breath sounds at the bases. No rales, rhonchi or wheezing. CARDIOVASCULAR: Shows a regular rate and rhythm with MR/TR. No S3. No S4. No rub. ABDOMEN: Moderately obese. Mild distention. Soft, nontender. Bowel sounds normal. No rebound, guarding or masses. EXTREMITIES: Show a puffy right upper extremity. She does have nonpitting edema of her lower extremity bilaterally. She has had a right chest wall PermCath. LABORATORY DATA AND IMAGING STUDIES: Admitting chest x-ray from last night showed right lower lobe infiltrate, pleural effusion unchanged from past studies. Positive cardiomegaly. Labs, CBC, white blood cell count yesterday 4.9, today 4.8, hemoglobin stable in the 10.4-10.6 range. Platelet count is normal at 148,000. Chemistries showed normal electrolytes. BUN post dialysis yesterday was 15 with a creatinine of 2.6, today 18 and 3.2. Glucose today 158. Iron saturations of 31%. Troponins are flat 0.02-0.03. BNP elevated at 21,900. Albumin level and liver enzymes are pending. TSH level was 4.11. Microbiology, no cultures were sent. ASSESSMENT: 1. Chronic hypotension despite use of ProAmatine 30 mg a day. This has significantly limited ability to ultrafiltrate the patient. Perhaps the patient will require an extra dialysis treatment during hospitalization if we are unable to ultrafiltrate her adequately with dialysis tomorrow. 2. End-stage renal disease secondary to longstanding diabetes. The patient has been on chronic hemodialysis for many years. 3. History of arteriosclerotic heart disease, status post percutaneous transluminal coronary angioplasty stent, history of cardiomyopathy, improved with ejection fraction of 50% with MR/TR, all stable. 4. History of anemia. Hemoglobin in the 10-11 range. This is stable. The patient will continue Aranesp on an as-needed basis. Iron saturations are normal. 5. History of secondary hyperparathyroidism. Check phosphorus level with dialysis tomorrow. The patient will continue binder therapy. 6. History of asthma with recent exacerbation in part secondary to a recent pneumonia. This appears not to be an issue at this point in time. The patient will continue inhalation therapy. PLAN: 1. Hemodialysis tomorrow. Consents have been signed, discussed with dialysis nurse. We will try and ultrafiltrate the patient 2 liters as tolerated. If necessary, the patient will require ultrafiltration on the days that she does not have dialysis. We will try and decrease her peripheral edema and render her euvolemic. 2. Continue ProAmatine 10 mg dose should be given prior to dialysis on dialysis days. 3. Monitor hemoglobin closely. The patient will continue Aranesp, and if necessary, iron supplements. 4. Continue all medications for her diabetes. 5. Continue all medications for her asthma exacerbation prevention. Consent was obtained for dialysis and plan of care discussed with hemodialysis nurse and staff on 3R remote telemetry. Thank you for letting me share in the care of our mutual patient. Nishant Mack MD [facility] # [id number]
[2018-01-13] MEDS: Latanoprost 2.5 ml Opht Soln OD SCH (22:45)
--- NOTE | 2018-01-13 23:16 | CON ---
DATE OF CONSULTATION: 01/13/2018 REASON FOR CONSULTATION: Chronic obstructive lung disease, obstructive sleep apnea syndrome. HISTORY OF PRESENT ILLNESS: This is a 73-year-old female known to me from previous admission with multiple medical issues including chronic obstructive lung disease, suspected obstructive sleep apnea syndrome, diabetes, hypertension, coronary artery disease, history of coronary stent, anemia, transferred from dialysis center because of hypotension with dizziness. In the emergency room, systolic blood pressure was 60, necessitating the fluid, admitted on telemetry. Presently sitting up in a chair, feels better, has some cough, shortness of breath, admits to loud snoring, daytime sleepiness and tiredness. PAST MEDICAL HISTORY: As per history of present illness. FAMILY HISTORY: No significant cardiopulmonary disease reported. SOCIAL HISTORY: Presently nonsmoker, nondrinker. MEDICATIONS: She is on Bactroban ointment to affected area, DuoNeb 4 times a day, ferrous sulfate 324 mg daily, folic acid 1 mg daily, insulin coverage, Levemir 10 units subcu a.c.b. and h.s., Lipitor 20 mg daily, metoprolol tartrate 12.5 mg twice a day, gabapentin 100 mg daily, midodrine 10 mg three times a day, Renagel 1600 mg with the meals, Singulair 10 mg daily, Tylenol p.r.n. ALLERGIES: MORPHINE, OXYCODONE, PENICILLIN, ALSO CLAIMED TO BE ALLERGIC TO STEROIDS, BUT DID USE IN THE PAST. ALSO ALLERGIC TO FISH PRODUCTS. REVIEW OF SYSTEMS: No headache. No rhinitis. Has some cough and shortness of breath. No chest pain at present. No nausea. No dysuria. No leg pain or leg swelling. PHYSICAL EXAMINATION: GENERAL: No acute distress. VITAL SIGNS: Temperature is 98, heart rate 70, respiratory rate 18, blood pressure 84/38, pulse ox 96% on 3 liters nasal cannula. HEENT: Small oral cavity. Crowded airway. Mallampati score is 4. LUNGS: Have a few scattered wheezing. HEART: S1 and S2. ABDOMEN: Soft, nontender. No organomegaly. EXTREMITIES: Some edema. NEUROLOGIC: Awake, alert, and follows simple commands. Mostly speaks in Y[place]ut. LABORATORY DATA: Hemoglobin 10.4, hematocrit 34.5, WBC 4.8, platelet count is 148. Sodium 135, potassium 4.4, chloride 95, bicarbonate is 31, BUN 18, creatinine 3.2, glucose 158, hemoglobin A1c 7.8, calcium 8.6, iron 59. Troponin less than 0.03. Cholesterol is 59, triglycerides 100. Vitamin B12 and folate is pending. TSH 4.11. Had a chest x-ray done, shows a right lower lobe infiltrate/effusion, not changed from previous x-rays. EKG done in ER shows a normal sinus rhythm and premature atrial complexes. IMPRESSION AND PLAN: Chronic obstructive lung disease, probably has a hypoventilation syndrome with CO2 retention and hypoxemia; renal failure, dialysis dependent; cardiomyopathy with pulmonary hypertension. I agree with Dr. House with the present management. Continue inhaled bronchodilator. We will place her on BiPAP 10/ with 30% oxygen while sleeping at nighttime or if lethargic, gastric prophylaxis, deep venous thrombosis prophylaxis. Orthostatic hypotension precautions. Follow blood pressure closely. We will recommend attending a sleep study upon discharge as outpatient and PFT as outpatient. Thank you and we will follow with you. Joss Arias MD
--- NOTE | 2018-01-14 03:03 | PN ---
DATE: 01/13/2018 SUBJECTIVE: The patient is a 73-year-old female. The patient was seen and examined at the bedside on 01/13/2018. Right upper extremity was swollen especially hand. No fever. No chills. No more dizziness. No nausea or vomiting. Has episode of hypotension during dialysis. Systolic blood pressure was in 60s. IV fluid was given, 500 mL of 0.9 saline bolus and Zofran for nauseousness. Now, she is feeling better. PHYSICAL EXAMINATION: VITAL SIGNS: Temperature 98.5, pulse 70, respiratory rate 18, blood pressure 84/38, and pulse oximetry 96. HEENT: Head is normocephalic and atraumatic. Eyes: PERRLA. Extraocular muscles intact. Conjunctivae clear. Nose patent. Mucous membrane moist. NECK: Supple. No carotid bruits, JVD or thyromegaly. CHEST: Bilaterally symmetrical. HEART: S1 and S2 positive. LUNGS: Clear to auscultation. ABDOMEN: Soft. Bowel sounds present. No organomegaly. EXTREMITIES: Right upper extremity is swollen. Left upper extremity, no swelling. Both lower extremities; no edema and no cyanosis. NEUROLOGIC: The patient is awake, alert, and follows simple commands. MEDICATIONS: Tylenol, DuoNeb, Lipitor, Feosol, folic acid, Neurontin, , Lopressor, and Bactroban. LABORATORY DATA: White blood cells 4.8, hemoglobin 10.4, and glucose 171. ASSESSMENT AND PLAN: Ms. Debby Olguin is a 73-year-old lady came with complaining of dizziness, nauseousness, hypotensive during dialysis in emergency department, systolic blood pressure was in the 60s, IV fluid was initiated, 500 mL of 0.9 saline bolus given, and Zofran given. Dizziness got better. Complaining of now has swelling of the right upper extremity. Midodrine started. Lopressor on hold. Recreation Professor and seaman is on the case. The patient has renal insufficiency, on hemodialysis 3 times a week and seen by Dr. Nishant Mack, seaman. Insulin-dependent diabetes mellitus, history of atherosclerotic heart disease, status post percutaneous transluminal coronary angioplasty stent, history of cardiomyopathy, chronic kidney disease, hyperparathyroidism, history of recent pneumonia, and history of chronic anemia secondary to inability to adequately ultrafiltration. Ordered stat ultrasound of the extremity. Gastrointestinal and deep venous thrombosis prophylaxis. Repeat labs. Evaluated by Dr. Tuttle electrophysiologically for automatic implantable cardioverter-defibrillator insertion. The patient is to follow with this group. We will follow up. Taylor House MD
[2018-01-14] MEDS: Brimonidine 0.15% 50 DROP/5 ML BOTTLE OD SCH ×3 (06:13→21:36)
[2018-01-14] MEDS: Albuterol-Ipratrop 3 mg / 0.5 (3 ml) UD IH SCH ×4 (07:23→19:26)
--- NOTE | 2018-01-14 08:37 | US ---
PROCEDURE: Right upper extremity venous US CLINICAL HISTORY: Arm pain and swelling Evaluate for deep venous thrombosis. PHYSICIAN(S): Chaka Noel M.D FINDINGS: The exam is very limited by the patient's inability to cooperate. The visualized rightinternal jugular vein is sonographically normal and compressible. No evidence of obstruction or thrombus is seen. The visualized segments of the right subclavian vein are patent with normal waveforms. No sonographic evidence of obstruction or thrombosis is seen. The visualized deep venous system of the proximal right upper extremity is sonographically normal and compressible. IMPRESSION: 1. No sonographic evidence for deep venous thrombosis in the visualized segments of the right upper extremity. 2. Limited study
--- NOTE | 2018-01-14 09:32 | CP.PCM.PN ---
Subjective - Date & Time of Evaluation Date of Evaluation: 01/14/18 Time of Evaluation: 07:30 - Subjective Subjective: Clinical Care Coordination Note Seen and examined 73 y/o F s/p symptomatic hypotensive episode during hemodialysis SBP was in the 60's, which has resolved at this time with initiation of Midodrine. Patient is AAOx3, breathing slightly labored c/o some difficulty breathing SPO2 97% on nebulizer TX, excursion wnl, NAD, non-toxic in presentation but chronically ill. Patient with multiple complaints overnight, generalized body aches, chest pain, as per nursing yelling which resolved with a one time dose of xanax. On physical assessment patient noted to have right breast pain with swelling and indurated soft tissue. PMHx ESRD HDD, CAD with stents, CHF diastolic, RHF, , valve disease, HTN, DM, COPD, Legally Blind, CVA, Anemia. Patient denies fever, chills, cough, chest pain, abdominal pain, N/V/D, hematemesis or rectal bleeding. Objective - Vital Signs/Intake and Output Vital Signs (last 24 hours): T-98.1 HR-82 B/P-101/52 RR-20 SPO2-97% on nebulizer TX Intake and Output: 01/14/18 01/14/18 06:59 18:59 Intake Total 240 Balance 240 - Medications Medications: Current Medications Acetaminophen (Tylenol 325mg Tab) 650 mg PO Q4H PRN PRN Reason: Fever >100.5 F Last Admin: 01/14/18 06:45 Dose: 650 mg Albuterol/Ipratropium (Duoneb 3 Mg/0.5 Mg (3 Ml) Ud) 3 ml IH QIDRESP [facility] Last Admin: 01/14/18 07:23 Dose: 3 ml Atorvastatin Calcium (Lipitor) 20 mg PO DIN [facility] Last Admin: 01/13/18 17:38 Dose: 20 mg Brimonidine Tartrate (Alphagan P 0.15% Opht) 0 drop OD Q8 [facility] Last Admin: 01/14/18 06:13 Dose: 1 drop Ferrous Sulfate (Feosol) 324 mg PO DAILY [facility] Last Admin: 01/14/18 08:05 Dose: 324 mg Folic Acid (Folic Acid) 1 mg PO DAILY [facility] Last Admin: 01/14/18 08:05 Dose: 1 mg Gabapentin (Neurontin) 100 mg PO DAILY [facility]; Protocol Last Admin: 01/14/18 08:08 Dose: 100 mg Insulin Detemir (Levemir) 10 unit SC [facility] Last Admin: 01/13/18 22:54 Dose: 10 units Insulin Human Regular (Humulin R Low) 0 units SC [facility]; Protocol Last Admin: 01/13/18 22:44 Dose: Not Given Latanoprost (Xalatan Opht) 0 ml OD HS [facility] Last Admin: 01/13/18 22:45 Dose: 2.5 ml Metoprolol Tartrate (Lopressor) 12.5 mg PO Q12 [facility] Last Admin: 01/13/18 22:44 Dose: Not Given Midodrine (Proamatine) 10 mg PO TID [facility] Last Admin: 01/14/18 08:07 Dose: 10 mg Montelukast Sodium (Singulair) 10 mg PO [facility] Last Admin: 01/13/18 22:32 Dose: 10 mg Mupirocin (Bactroban Ointment) 0 gm EXT DAILY [facility] Sevelamer HCl (Renagel) 1,600 mg PO [facility] Last Admin: 01/13/18 17:38 Dose: 1,600 mg - Labs Labs: AM labs are pending collection and result patient is for HD this am. - Constitutional Appears: Non-toxic, No Acute Distress, Chronically Ill - Head Exam Head Exam: ATRAUMATIC, NORMOCEPHALIC - Eye Exam Eye Exam: EOMI, PERRL Pupil Exam: NORMAL ACCOMODATION - Neck Exam Neck Exam: Full ROM - Respiratory Exam Respiratory Exam: Decreased Breath Sounds, Prolonged Expiratory Phase Additional comments: fine rales scattered bilateral lung pepe, patient is slightly labored without acute distress. - Cardiovascular Exam Cardiovascular Exam: REGULAR RHYTHM, +S1, +S2 - GI/Abdominal Exam GI & Abdominal Exam: Soft, Normal Bowel Sounds Additional comments: obese - Rectal Exam Rectal Exam: Deferred - Extremities Exam Extremities Exam: Full ROM, Normal Capillary Refill Additional comments: ODEN's - Neurological Exam Neurological Exam: Alert, Awake, CN II-XII Intact, Oriented x3 Neuro motor strength exam: Left Upper Extremity: 5, Right Upper Extremity: 5, Left Lower Extremity: 4 (generalized weakness ), Right Lower Extremity: 4 (generalized weakness ) - Psychiatric Exam Psychiatric exam: Normal Affect, Normal Mood Additional comments: normal mood and affect at this time s/p xanax. - Skin Skin Exam: Dry, Warm Additional comments: bilateral LE venous stasis Assessment and Plan - Assessment and Plan (Free Text) Assessment: A: fluid overload/dyspnea questionable anxiety right breast pain hypotension Plan: P: hemodialysis today repeat CXR AM labs pending Dr. Pollack consulted questionable anxiety Right Breast US Hypotension resolved tolerating Midodrine well Medications as per APR PT evaluation pending Will follow closely CM/SW for D/C planning
--- NOTE | 2018-01-14 11:14 | CARD ---
APPROVED REPORT Date of service: 01/14/2018 EKG Measurement Heart [id number] <Conclusion> Sinus rhythm with premature atrial complexes Low voltage complexes Possible Inferior infarct, age undetermined Abnormal ECG
[2018-01-14] MEDS: Insulin Detemir 100 units/ml Vial (Levemir) SC SCH ×3 (14:26→21:57)
[2018-01-14] MEDS: Insulin Reg-LOW-Coverage SC SCH ×3 (14:26→21:49)
--- NOTE | 2018-01-14 14:33 | US ---
Date of service: 01/14/2018 PROCEDURE: Targeted ultrasound right breast HISTORY: breast pain and induration COMPARISON: January 14, 2018 right upper extremity venous duplex study TECHNIQUE: Standard protocol for this study/examination. FINDINGS: Cyst(s): None Breast mass: None Dilated ducts: None Parenchymal distortion: None Skin thickening or subcutaneous abnormalities: Profound, diffuse edema involving cutaneous and subcutaneous tissues right breast 7-12 o'clock. These findings extend to the axilla Periareolar thickening also identified. Right axillary artery and vein are patent. IMPRESSION: Profound cutaneous and subcutaneous edema right breast as described above. No focal mass or drainable collection. Follow-up to resolution recommended. Elective mammogram strongly recommended.
--- NOTE | 2018-01-14 14:54 | PN ---
DATE: 01/14/2018 REASON FOR CONSULTATION AND FOLLOWUP: Hypertension, coronary artery disease, chest pain atypical, tenderness of the chest, and cardiac evaluation. SUBJECTIVE: The patient complained of chest pain, left sided and underneath the right breast, very tender on touch, appears to be musculoskeletal. OBJECTIVE: GENERAL: The patient complained of chest pain as well as tenderness. VITAL SIGNS: Temperature afebrile, heart rate 71, and blood pressure 122/96. HEENT: PERRLA, intact. NECK: Supple. No carotid bruit or thyromegaly. CHEST: Clear to auscultation. HEART: S1, S2 regular. ABDOMEN: Soft. EXTREMITIES: Clubbing and cyanosis negative. LABORATORY DATA: WBC 4.8, hemoglobin 10.4, hematocrit 34.5, and platelet count 148. Chemistries show sodium 135, potassium 4.4, chloride 95,. carbon dioxide 31, anion gap of 14, BUN 18, and creatinine 3.2. IMPRESSION: A 73-year-old female with a past medical history of end-stage renal disease, on dialysis, found to be hypotensive and brought here, history of coronary artery disease, status post stent in 12/2014 and 2016. Last echo on 07/10/2017 showed ejection fraction of 55%, trace aortic regurgitation, moderate mitral regurgitation, and moderate tricuspid regurgitation. Now the patient is complaining of chest pain with atypical very severe tenderness, history of LifeVest, but repeat echo showed preserved left ventricular function is removed, being followed by and Dr. Motta for possible AICD in future, but now preserved left ventricular function. RECOMMENDATIONS: We will start some ibuprofen for the chest pain, which is atypical and the patient is begging to give something for pain. So far, no evidence of acute [place], troponin remains at 0.2-0.03 in the face of kidney disease. So, we will discontinue telemetry, aggressive medical treatment. If he remains stable, okay to be discharged from cardiology point of view. No further cardiac workup is planned or warranted. Thank you Dr. House for providing us the opportunity in taking care of the patient. Joss Bah MD
[2018-01-14] MEDS: Mupirocin 2% Ointment 15 GM TUBE EXT SCH (15:05)
--- NOTE | 2018-01-14 16:49 | CP.PCM.PCO ---
Physician Communication Note - Physician Communication Note Physician Communication Note: pt was at HD today, will f/u tomorrow
--- NOTE | 2018-01-14 19:03 | PN ---
DATE: 01/14/2018 PULMONARY PROGRESS NOTE REFERRING PHYSICIAN: Taylor House MD SUBJECTIVE: She is lying in the bed, sleepy, arousable, and not very compliant with the BiPAP. Mild cough and shortness of breath. No chest pain. No nausea. No vomiting or diarrhea. Has a trace leg swelling. OBJECTIVE: GENERAL: In no acute distress. VITAL SIGNS: Temperature is 98, heart rate is 82, respiratory rate is 20, blood pressure 102/56, and pulse ox 97% nasal cannula. HEENT: Moist mucous membrane. Crowded airway. Mallampati score is 4. NECK: Supple. No JVD. LUNGS: Has a prolonged expiratory phase. HEART: S1 and S2. ABDOMEN: Soft and nontender. No organomegaly. EXTREMITIES: Does have edema. NEUROLOGIC: Sleepy and arousable. MEDICATIONS: She is on eyedrops, also getting DuoNeb q.i.d., ferrous sulfate 325 mg daily, folic acid 1 mg daily, Levemir 10 units subcutaneously and at bedtime, Lipitor 20 mg daily, metoprolol tartrate 12.5 mg twice a day, Motrin 400 mg every 6 hours p.r.n., gabapentin 100 mg daily, midodrine 10 mg three times a day, Renagel 1600 mg with the meals, Singulair 10 mg at bedtime, and Tylenol p.r.n. basis. LABORATORY DATA: Shows proBNP this morning . Glucose is 80. Has a venous Doppler of lower extremity done shows no DVT, but is a limited study. IMPRESSION AND PLAN: Chronic obstructive lung disease, hypoventilation syndrome with CO2 retention and hypoxemia in the past, renal failure, dialysis dependent, cardiomyopathy with pulmonary hypertension, and hypotension after dialysis. We will continue encourage bilevel positive airway pressure use. Keep head at 45 degrees. Bronchodilator, gastric prophylaxis, deep venous thrombosis prophylaxis, will need outpatient and sleep study and pulmonary function test, and being followed by Cardiology. Thank you and we will follow with you. Joss Arias MD
[2018-01-14] MEDS: Latanoprost 2.5 ml Opht Soln OD SCH (21:36)
--- NOTE | 2018-01-15 00:28 | PN ---
DATE: 01/14/2018 SUBJECTIVE: The patient is seen in the dialysis unit. She is lying in bed. She is lethargic but arousable. Blood pressure is running low. PHYSICAL EXAMINATION: GENERAL: Elderly lady, lying in bed, in the dialysis unit. VITAL SIGNS: Blood pressure 86/40, heart rate 81, respiratory rate 20, temperature 98.7. HEENT: Normocephalic, atraumatic, positive pallor. NECK: Supple, no JVD. LUNGS: Bilateral equal air entry. Decreased breath sounds at bases. CARDIAC: S1 and S2, regular rate and rhythm, no murmur, no rub. ABDOMEN: Obese, distended, soft, nontender. Bowel sounds present. EXTREMITIES: Trace lower extremity edema. LABORATORY DATA: Hemoglobin 10.4, WBC 4.8. No chemistry today. Yesterday, sodium 135, potassium 4.4, BUN 18, creatinine 3.2. ASSESSMENT: 1. Recurrent severe hypotension. 2. Noninsulin-dependent diabetes mellitus. 3. Cardiomyopathy. PLAN: 1. Stable dialysis. 2. Reduce ultrafiltration. 3. Continue spirometry. 4. IV albumin during dialysis. Marlyn Snow MD
[2018-01-15] MEDS ORDERED: DiphenhydrAMINE 50 mg/ml Inj IVP ONE (02:08)
--- NOTE | 2018-01-15 03:48 | PN ---
DATE: 01/14/2018 SUBJECTIVE: The patient is 73-year-old male. The patient was seen and examined on the bedside, looking comfortable. Actually, the patient was seen in the dialysis center. Sleepy, arousable. No fevers. No chills. No headaches or dizziness. No chest pain or palpitation. Has trace leg swelling. PHYSICAL EXAMINATION: VITAL SIGNS: Temperature 98, heart rate 52, respiratory rate 20, blood pressure 102/56, and pulse oximetry 97% on nasal cannula. HEENT: Head, normocephalic and atraumatic. Eyes, extraocular movements intact. Conjunctivae clear. Nose is patent. Mucous membranes are moist. NECK: Supple. No carotid bruits or thyromegaly. CHEST: Bilaterally symmetrical. LUNGS: Have prolonged expiratory phase. HEART: S1 and S2 positive. ABDOMEN: Soft, nontender. No organomegaly. EXTREMITIES: Trace edema. NEUROLOGIC: The patient is awake and alert, moving all four extremities. No focal deficits. MEDICATIONS: DuoNeb, ferrous sulphate, folic acid, Levaquin, Lipitor, metoprolol, Motrin, gabapentin, and Tylenol. LABORATORY DATA: Glucose 80. The patient has venous Doppler of lower extremities. No DVT. ASSESSMENT AND PLAN: Ms. Debby Olguin is a 73-year-old lady with chronic lung disease, hypoventilation syndrome, carbon dioxide retention, hypokalemia, renal failure on hemodialysis, cardiomyopathy, pulmonary hypertension. Gastrointestinal and deep venous thrombosis prophylaxis. Bronchodilators. He is out of bed, physical therapy. The patient had a, and psych consult call with Dr. Jaki Doherty. We will follow. Taylor House MD ESDRAS
[2018-01-15] MEDS: Albuterol-Ipratrop 3 mg / 0.5 (3 ml) UD IH SCH ×3 (07:19→19:58)
--- NOTE | 2018-01-15 07:29 | RAD ---
Date of service: 01/15/2018 HISTORY: dyspnea COMPARISON: Portable chest 01/12/2018. FINDINGS: LUNGS: Telemetry devices obscure evaluation. Permanent right central venous dialysis catheter unchanged in position grossly. Limited airspace disease unchanged at the right base with none grossly evident at the left. Left perihilar linear atelectasis or fibrosis noted. PLEURA: Trace fluid noted in the minor fissure versus pleural thickening. Small right pleural effusion likely once again. CARDIOVASCULAR: Calcific atherosclerotic changes are seen related to the thoracic aorta. Cardiac silhouette appears stable. No definite pulmonary vascular congestion. OSSEOUS STRUCTURES: No significant abnormalities. VISUALIZED UPPER ABDOMEN: Normal. OTHER FINDINGS: None. IMPRESSION: No significant interval change in limited right basilar airspace disease with trace fluid in the minor fissure versus pleural thickening and limited linear atelectasis left perihilar region versus fibrosis. Limited right pleural effusion reiterated.
[2018-01-15] MEDS: Insulin Reg-LOW-Coverage SC SCH ×4 (07:39→22:11)
[2018-01-15] MEDS: Insulin Detemir 100 units/ml Vial (Levemir) SC SCH ×2 (08:19→22:29)
[2018-01-15] MEDS: Brimonidine 0.15% 50 DROP/5 ML BOTTLE OD SCH ×3 (08:28→21:10)
--- NOTE | 2018-01-15 09:32 | CP.PCM.PN ---
Subjective - Date & Time of Evaluation Date of Evaluation: 01/15/18 Time of Evaluation: 07:35 - Subjective Subjective: Awake, alert, no distress Reason for consultation and follow up: Cardiac evaluation of chest pain, atypical chest pain, chest tenderness, history of coronary artery disease, hypertension Seen and examined by me and Dr. Bah Objective - Vital Signs/Intake and Output Vital Signs (last 24 hours): Temp Pulse Resp BP Pulse Ox 97.7 F 70 20 121/50 L 97 01/15/18 06:00 01/15/18 06:00 01/15/18 06:00 01/15/18 06:00 01/15/18 06:00 Intake and Output: 01/15/18 01/15/18 06:59 18:59 Intake Total 300 Balance 300 - Medications Medications: Current Medications Acetaminophen (Tylenol 325mg Tab) 650 mg PO Q4H PRN PRN Reason: Fever >100.5 F Last Admin: 01/14/18 17:30 Dose: 650 mg Albuterol/Ipratropium (Duoneb 3 Mg/0.5 Mg (3 Ml) Ud) 3 ml IH QIDRESP [facility] Last Admin: 01/15/18 07:19 Dose: 3 ml Atorvastatin Calcium (Lipitor) 20 mg PO DIN [facility] Last Admin: 01/14/18 17:31 Dose: 20 mg Brimonidine Tartrate (Alphagan P 0.15% Opht) 0 drop OD Q8 [facility] Last Admin: 01/15/18 08:28 Dose: 1 drop Ferrous Sulfate (Feosol) 324 mg PO DAILY [facility] Last Admin: 01/15/18 09:27 Dose: 324 mg Folic Acid (Folic Acid) 1 mg PO DAILY [facility] Last Admin: 01/15/18 09:26 Dose: 1 mg Gabapentin (Neurontin) 100 mg PO DAILY [facility]; Protocol Last Admin: 01/15/18 09:25 Dose: 100 mg Ibuprofen (Motrin Tab) 400 mg PO Q6H PRN PRN Reason: Pain, moderate (4-7) Last Admin: 01/15/18 02:15 Dose: 400 mg Insulin Detemir (Levemir) 10 unit SC ACS [facility] Last Admin: 01/15/18 08:19 Dose: Not Given Insulin Human Regular (Humulin R Low) 0 units SC [facility]; Protocol Last Admin: 01/15/18 07:39 Dose: Not Given Latanoprost (Xalatan Opht) 0 ml OD HS [facility] Last Admin: 01/14/18 21:36 Dose: 2.5 ml Metoprolol Tartrate (Lopressor) 12.5 mg PO Q12 [facility] Last Admin: 01/15/18 09:27 Dose: Not Given Midodrine (Proamatine) 10 mg PO TID [facility] Last Admin: 01/15/18 09:27 Dose: Not Given Montelukast Sodium (Singulair) 10 mg PO HS [facility] Last Admin: 01/14/18 21:50 Dose: 10 mg Mupirocin (Bactroban Ointment) 0 gm EXT DAILY [facility] Last Admin: 01/14/18 15:05 Dose: 1 applic Sevelamer HCl (Renagel) 1,600 mg PO WM [facility] Last Admin: 01/15/18 08:27 Dose: 1,600 mg - Labs Labs: 01/13/18 06:00 01/13/18 06:00 - Constitutional Appears: Non-toxic, No Acute Distress - Head Exam Head Exam: NORMAL INSPECTION, NORMOCEPHALIC - Eye Exam Eye Exam: Normal appearance Pupil Exam: NORMAL ACCOMODATION - ENT Exam ENT Exam: Mucous Membranes Dry - Respiratory Exam Respiratory Exam: Decreased Breath Sounds, Clear to Ausculation Bilateral, NORMAL BREATHING PATTERN - Cardiovascular Exam Cardiovascular Exam: +S1, +S2 - GI/Abdominal Exam GI & Abdominal Exam: Soft, Normal Bowel Sounds - Extremities Exam Extremities Exam: Full ROM, Normal Capillary Refill - Neurological Exam Neurological Exam: Alert, Awake - Psychiatric Exam Psychiatric exam: Anxious - Skin Skin Exam: Dry, Normal Color, Warm Assessment and Plan - Assessment and Plan (Free Text) Assessment: A 73 year old female who was brought to the ER due to hypotension, on hemodialysis. History of coronary artery disease post stents in 12/2014, ESDR on hemodialysis 3x a week. Complaining of chest pain, chest tender to touch, history of life vest . Recent echo LVEF, preserved LV function thus life vest discontinued. Being followed up by Dr. Motta. EKG normal sinus rhythm, no ischemia.Very anxious, given Xanax. Plan: Denies shortness of breath No distress Started Motrin PRN for chest tenderness Less anxious today Heart rate controlled Blood pressure controlled Discontinue telemetry For Psych evaluation On Lipitor 20 mg daily, Lopressor 12.5 mg BID, Midorine 10 mg TID Continue current medications Continue current treatment Physical therapy Chart reviewed Will follow up Plan and treatment discussed with Dr. Bah
--- NOTE | 2018-01-15 14:11 | PN ---
DATE: 01/15/2018 REASON FOR CONSULTATION AND FOLLOWUP: Hypertension, coronary artery disease, chest pain atypical, musculoskeletal, and cardiac evaluation. SUBJECTIVE: Patient denies any chest pain, but feeling on pressing the chest, patient jumps. Denies any palpitation, obliviously not in apparent distress. PHYSICAL EXAMINATION: As follows; VITAL SIGNS: Temperature afebrile, heart rate 70, and blood pressure 120/50. HEENT: PERRLA, intact. NECK: Supple. No carotid bruit or thyromegaly. CHEST: Clear to auscultation. HEART: S1 and S2 regular. ABDOMEN: Soft. EXTREMITIES: Clubbing and cyanosis negative. LABORATORY DATA: So far, troponin remains negative. No evidence of acute TX. This note is in addition to dictated by nurse practitioner, Zoya Bradley. IMPRESSION: A 73-year-old female with a past medical history significant for end-stage renal disease, on dialysis, found to have hypotension, has improved, history of coronary artery disease, status post stent in 12/2014 and 2015. Last echo showed ejection fraction of 55% dated 07/10/2017. Chest pain atypical, so far no evidence of acute myocardial infarction. RECOMMENDATION: We will discontinue telemetry. We will give doses more of ibuprofen. Continue metoprolol 12.5 mg p.o. twice daily and end-stage renal disease, on dialysis. No further cardiac work is planned or warranted. Okay to be discharged from Cardiology point of view, been cleared from other subspecialty. We will follow with you. We will give 3 doses of ibuprofen. Thank you Dr. House for providing us the opportunity in taking care of the patient, Debby Olguin. Joss Bah MD
[2018-01-15] MEDS: Mupirocin 2% Ointment 15 GM TUBE EXT SCH (14:59)
[2018-01-15] MEDS ORDERED: Albumin Human 25% (12.5 gm/50 ml) IV ONE (15:42)
--- NOTE | 2018-01-15 20:20 | PN ---
DATE: 01/15/2018 SUBJECTIVE: The patient is seen lying in bed. She is awake, she is alert. She is talking nonstop but I cannot understand. PHYSICAL EXAMINATION: GENERAL: Elderly lady lying in bed. VITAL SIGNS: Blood pressure 121/50, heart rate 70, respiratory rate 20, temperature 97.7. HEENT: Normocephalic, atraumatic, positive pallor. NECK: Supple, no JVD. LUNGS: Bilateral equal entry, bilateral equal expansion. CARDIAC: S1, S2, regular rate and rhythm, no murmur, no rub. ABDOMEN: Obese, distended, soft, nontender, bowel sounds present. EXTREMITIES. No lower extremity edema. LABORATORY DATA: No new labs available. ASSESSMENT: 1. Cardiomyopathy, diastolic dysfunction, hypotension, especially during dialysis. 2. Decompensated congestive heart failure. 3. End-stage renal disease. 4. Anemia of chronic kidney disease. 5. Secondary hyperparathyroidism. PLAN: 1. Dialysis tomorrow. 2. Limit ultrafiltration to 1500 mL. 3. Use IV albumin during dialysis as needed. Marlyn Snow MD
--- NOTE | 2018-01-15 20:40 | CON ---
DATE: 01/15/2018 HISTORY OF PRESENT ILLNESS: In short, the patient is 73-year-old female with not known previous psychiatric history. The patient has multiple medical issues including end-stage renal disease, on hemodialysis. The patient has diabetes, hypertension, coronary artery disease, coronary stent placement and anemia. The patient was admitted on the medical site for hypotension and dizziness. Psych consult was called for evaluation of anxiety. The patient was seen and examined today. The patient presented to be alert and oriented. The patient is Lithuanian speaking, this pattern chart writer utilized [employer] for interpretation, ID number [id number]. The patient presented to be alert and oriented. The patient reported that she slept well. The patient denied that she feels depressed. The patient denied feeling anxious. The patient is concerned about her medical issues, but not overwhelmed. The patient adamantly denied any thoughts of harming herself or others. Denied intent or plan. The patient denied ever talked to psychiatrist in the past. The patient denied that she is hearing voices. She is seeing things. Vital signs are stable. Temperature 97.7, pulse is 72, blood pressure 121/50, respirations 26, and oxygen saturation is 97. MEDICATIONS: Reviewed. The patient is on Tylenol, DuoNeb, Lipitor, Alphagan, Aranesp, Feosol, folic acid, Neurontin, Motrin, insulin, Lopressor, Xalatan, midodrine, Singulair, Bactroban, Renagel. LABORATORY DATA: Labs reviewed. Chemistry reviewed. Discussed with the nursing staff. As per nursing staff, the patient does not exhibit any aggressive or agitated behavior, seems to be comfortable. MENTAL STATUS EXAMINATION: The patient appears to be alert and oriented, pleasant, cooperative, intermittent eye contact, but this could be related to visual impairment. Mood described, "I am feeling fine." Affect was constricted, but reactive. Mood congruent. Thought process seems to be coherent and goal directed. Thought content, the patient denied visual, auditory, or tactile hallucinations. Denied paranoid ideation. The patient denied thoughts of harming herself or others. Denied intent or plan. The patient does not appear to be anxious, does not appear to be depressed, does not appear to be psychotic. Insight and judgment seemed to be improving. Impulses are well controlled. IMPRESSION: Rule out anxiety due to general medical condition, but now seems to be under control. PLAN: Continue current management. Continue current medication. If needed, the patient could have a smaller dose of Xanax 0.25 mg twice a day as needed, but at the present moment, the patient seems to be comfortable, and this pattern chart writer will not initiate any anti-anxiolytics. The patient poses no imminent danger to self or others. Should you have any questions, give me a call back. This pattern chart writer will sign off. Jaki Doherty MD MTDD
[2018-01-15] MEDS: Latanoprost 2.5 ml Opht Soln OD SCH (21:15)
--- NOTE | 2018-01-15 23:35 | PN ---
DATE: 01/15/2018 PULMONARY PROGRESS NOTE REFERRING PHYSICIAN: Taylor House MD SUBJECTIVE: The patient is lying in the bed, head at 45 degrees, son is at bedside. Awake, alert, follows simple commands, but confused. Short of breath with exertion using CPAP. No nausea, vomiting, or diarrhea. Trace leg swelling. OBJECTIVE: GENERAL: In no acute distress. VITAL SIGNS: Temp is 98, heart rate 79, respiratory rate 18, blood pressure 106/50, pulse ox 98% on nasal cannula. HEENT: Moist mucous membrane. Crowded airway. Mallampati score is 4. NECK: Supple. No JVD. LUNGS: Have a few scattered rhonchi, prolonged expiratory phase. HEART: S1 and S2. ABDOMEN: Soft and nontender. No organomegaly. EXTREMITIES: Does have trace edema. NEUROLOGIC: Awake, alert, and follows simple commands. LABORATORY DATA: Reviewed shows blood sugar this morning 103. MEDICATIONS: She is on eyedrops, also getting Aranesp 60 mcg IV weekly, DuoNeb q.i.d., ferrous sulfate 324 mg daily, folic acid 1 mg daily, insulin coverage, Levemir 10 units subcu a.c. and at night, Lipitor 20 mg daily, metoprolol tartrate 12.5 mg twice a day, Motrin 400 mg every 6 hours p.r.n., Neurontin 100 mg daily, midodrine 10 mg 3 times a day, Singulair 10 mg daily, Tylenol p.r.n. IMPRESSION AND PLAN: Chronic obstructive lung disease, hypoventilation syndrome, renal failure, dialysis dependent, pulmonary hypertension diastolic dysfunction, hypertension, has hypotension after dialysis. I spoke to the patient's son at bedside. All the questions answered. At a time,the patient is confused. We will encourage BiPAP use, keep head at 45 degrees. Recommended attended sleep study upon discharge as outpatient, PFT as outpatient, fall precaution. Thank you, and we will follow with you. Joss Arias MD
--- NOTE | 2018-01-16 05:56 | CP.PCM.PN ---
Subjective - Date & Time of Evaluation Date of Evaluation: 01/16/18 Time of Evaluation: 06:30 - Subjective Subjective: Lying in bed Awake, alert, Reason for consultation and follow up: Cardiac evaluation of chest pain, atypical chest pain, chest tenderness, history of coronary artery disease, hypertension Seen and examined by me and Dr. Bah Objective - Vital Signs/Intake and Output Vital Signs (last 24 hours): Temp Pulse Resp BP Pulse Ox 98.2 F 83 20 102/47 L 98 01/16/18 03:39 01/16/18 03:39 01/16/18 03:39 01/16/18 03:39 01/16/18 03:39 Intake and Output: 01/15/18 01/16/18 18:59 06:59 Intake Total 600 Balance 600 - Medications Medications: Current Medications Acetaminophen (Tylenol 325mg Tab) 650 mg PO Q4H PRN PRN Reason: Fever >100.5 F Last Admin: 01/14/18 17:30 Dose: 650 mg Albuterol/Ipratropium (Duoneb 3 Mg/0.5 Mg (3 Ml) Ud) 3 ml IH QIDRESP [facility] Last Admin: 01/15/18 19:58 Dose: 3 ml Atorvastatin Calcium (Lipitor) 20 mg PO DIN [facility] Last Admin: 01/15/18 16:52 Dose: 20 mg Brimonidine Tartrate (Alphagan P 0.15% Opht) 0 drop OD Q8 [facility] Last Admin: 01/15/18 21:10 Dose: 1 drop Darbepoetin Jovi (Aranesp) 60 mcg IVP Fr@1000 [facility] Ferrous Sulfate (Feosol) 324 mg PO DAILY [facility] Last Admin: 01/15/18 09:27 Dose: 324 mg Folic Acid (Folic Acid) 1 mg PO DAILY [facility] Last Admin: 01/15/18 09:26 Dose: 1 mg Gabapentin (Neurontin) 100 mg PO DAILY [facility]; Protocol Last Admin: 01/15/18 09:25 Dose: 100 mg Ibuprofen (Motrin Tab) 400 mg PO Q6H PRN PRN Reason: Pain, moderate (4-7) Last Admin: 01/15/18 13:52 Dose: 400 mg Ibuprofen (Motrin Tab) 400 mg PO Q6H PRN PRN Reason: Pain, moderate (4-7) Insulin Detemir (Levemir) [facility] Last Admin: 01/15/18 22:29 Dose: 10 units Insulin Human Regular (Humulin R Low) 0 units SC A[facility]S [facility]; Protocol Last Admin: 01/15/18 22:11 Dose: Not Given Latanoprost (Xalatan Opht) 0 ml OD [facility] Last Admin: 01/15/18 21:15 Dose: 2.5 ml Metoprolol Tartrate (Lopressor) 12.5 mg PO Q12 [facility] Last Admin: 01/15/18 21:13 Dose: Not Given Midodrine (Proamatine) 10 mg PO TID [facility] Last Admin: 01/15/18 18:48 Dose: Not Given Montelukast Sodium (Singulair) 10 mg PO [facility] Last Admin: 01/15/18 21:15 Dose: 10 mg Sevelamer HCl (Renagel) 1,600 mg PO WM [facility] Last Admin: 01/15/18 16:52 Dose: 1,600 mg - Labs Labs: 01/13/18 06:00 01/13/18 06:00 - Constitutional Appears: No Acute Distress - Head Exam Head Exam: NORMAL INSPECTION - Eye Exam Eye Exam: Normal appearance Pupil Exam: NORMAL ACCOMODATION - ENT Exam ENT Exam: Mucous Membranes Dry - Respiratory Exam Respiratory Exam: Decreased Breath Sounds, NORMAL BREATHING PATTERN - Cardiovascular Exam Cardiovascular Exam: +S1, +S2 - GI/Abdominal Exam GI & Abdominal Exam: Soft, Normal Bowel Sounds - Extremities Exam Additional comments: 2+edema - Neurological Exam Neurological Exam: Alert, Awake Additional comments: confuse - Skin Skin Exam: Normal Color, Warm Assessment and Plan - Assessment and Plan (Free Text) Assessment: A 73 year old female who was brought to the ER due to hypotension, on hemodialysis. History of coronary artery disease post stents in 12/2014, ESDR on hemodialysis 3x a week. Complaining of chest pain, chest tender to touch, history of life vest . Recent echo LVEF, preserved LV function thus life vest discontinued. Being followed up by Dr. Motta. EKG normal sinus rhythm, no ischemia.Very anxious, given Xanax. Motrin for chest tenderness. On CPAP. Plan: Denies shortness of breath Heart rate controlled Blood pressure controlled Cardiac status stable Psych evaluation done, recommendations appreciated On Lipitor 20 mg daily, Lopressor 12.5 mg BID, Midorine 10 mg TID Continue current medications Continue current treatment Physical therapy Chart reviewed Will follow up Plan and treatment discussed with Dr. Bah
[2018-01-16 06:43] LABS: ARTERIAL BLOOD GAS HCO3 24.8 mmol/L (21-28); ARTERIAL BLOOD GAS HEMOGLOBIN 11.5 g/dL (11.7-17.4); ARTERIAL BLOOD GAS O2 CAPACITY 15.8 mL/dl (16-24); ARTERIAL BLOOD GAS O2 CONTENT 13.4 ML/dl (15-23); ARTERIAL BLOOD GAS O2 SAT 84.7 % (95-98); ARTERIAL BLOOD GAS PCO2 62 mm/Hg (35-45); ARTERIAL BLOOD GAS TCO2 26.7 mmol.L (22-28)
[2018-01-16 07:35] LABS: ARTERIAL BLOOD GAS PH 7.21 (7.35-7.45)
[2018-01-16] MEDS: Albuterol-Ipratrop 3 mg / 0.5 (3 ml) UD IH SCH ×3 (07:55→20:30)
--- NOTE | 2018-01-16 08:08 | PN ---
DATE: 01/15/2018 SUBJECTIVE: The patient was seen and examined at the bedside on 01/15/2018, looking comfortable, having lunch with the help. No fever. No chills. No headache. No dizziness. Seen by the psychiatrist. The patient is awake and alert. PHYSICAL EXAMINATION VITAL SIGNS: Blood pressure 120/50, heart rate 70, respiratory rate 20, temperature 97.7. HEENT: Head normocephalic, atraumatic. Eyes PERRLA. Extraocular muscles are intact. Conjunctivae clear. Nose patent. Mucous membranes moist. NECK: Supple. No carotid bruits. No JVD or thyromegaly. CHEST: Bilaterally symmetrical. HEART: S1, S2 positive. LUNGS: Clear to auscultation. ABDOMEN: Soft. Bowel sounds present. No organomegaly. EXTREMITIES: No edema. No cyanosis. NEUROLOGIC: The patient is awake and alert, moving all four extremities. No focal deficits. MEDICATIONS: Aranesp, DuoNeb, iron sulfate, folic acid, insulin, Levemir, Lipitor, Lopressor, ibuprofen, Motrin, Neurontin, midodrine, Renagel, Singulair, Tylenol, Xalatan. LABORATORY DATA: White blood cells 4.8, hemoglobin 10.4, hematocrit 34.5, platelets 148. Glucose 135, 103, 81. ASSESSMENT AND PLAN: Ms. Sharif King is a 73 years old lady with anemia, renal insufficiency on hemodialysis 3 times a week, history of hypotension, cardiomyopathy, diastolic dysfunction, decompensated congestive heart failure, anemia of acute on chronic disease, secondary hyperthyroidism. We will get dialysis tomorrow, use IV during dialysis as needed per Dr. Snow. Seen by the sinker puller Dr. Bah. Last echo showed ejection fraction of 55%. Continue present treatment. Repeat labs. We will follow up. Taylor House MD MTDD
[2018-01-16] MEDS: Insulin Reg-LOW-Coverage SC SCH ×4 (08:32→23:16)
[2018-01-16] MEDS: Insulin Detemir 100 units/ml Vial (Levemir) SC SCH ×2 (08:32→23:16)
[2018-01-16] MEDS ORDERED: Darbepoetin Alfa 60 mcg/ml Inj IVP SCH (10:00)
[2018-01-16 10:07] LABS: BASO # 0.02 K/mm3 (0.0-2.0); BASO % 0.3 % (0.0-3.0); EOS # 0.1 (0.0-0.7); EOS % 1.7 % (1.5-5.0); GRAN # 4.28 (1.4-6.5); GRAN % 64.8 % (50.0-68.0); HEMOGLOBIN 11.1 g/dL (12.0-16.0); LYMPH # 1.2 (1.2-3.4); LYMPH % 17.7 % (22.0-35.0); MEAN CELL VOLUME 119.2 fl (80.0-105.0); MEAN CORPUSCULAR HEMOGLOBIN 35.6 pg (25.0-35.0); MEAN CORPUSCULAR HGB CONC 29.8 g/dl (31.0-37.0); MEAN PLATELET VOLUME 10.4 fl (7.0-11.0); MONO % 15.5 % (1.0-6.0); RBC 3.12 10^6/uL (3.5-6.1); RED CELL DISTRIBUTION WIDTH 15.8 % (11.5-14.5); WHITE BLOOD COUNT 6.6 10^3/uL (4.5-11.0)
[2018-01-16 10:18] LABS: ALB/GLOB RATIO 0.8 (1.1-1.8); ALBUMIN 3.1 g/dL (3.0-4.8); CALCIUM 8.5 mg/dL (8.4-10.5)
[2018-01-16] MEDS: Brimonidine 0.15% 50 DROP/5 ML BOTTLE OD SCH ×2 (13:16→23:15)
--- NOTE | 2018-01-16 15:17 | PN ---
DATE: 01/16/2018 SUBJECTIVE: The patient is seen lying in bed. She is seen in the dialysis unit. She was given Ativan earlier because of agitation. Currently she is resting comfortably. PHYSICAL EXAMINATION: GENERAL: Elderly lady lying in bed in the dialysis unit. VITAL SIGNS: Blood pressure 105/87, heart rate 65, respiratory rate 20 and temperature 97.8. HEENT: Normocephalic, atraumatic, positive pallor. NECK: Supple, no JVD. LUNGS: Bilateral equal entry, bilateral rhonchi, no rales. CARDIAC: S1 and S2, regular rate and rhythm, no murmur, no rub. ABDOMEN: Obese, distended, soft, nontender, bowel sounds present. EXTREMITIES: Trace lower extremity edema. INTAKE AND OUTPUT: Not charted. LABORATORY DATA: WBC 6.6, hemoglobin 11, hematocrit 37 and platelets 179. Sodium 134, potassium 5.2, chloride 96, CO2 of 28, BUN 24, creatinine 4.0, glucose 101, calcium 8.5, phosphorus 5.0, magnesium 1.9 and albumin 3.1. CURRENT MEDICATIONS: 1. Aranesp. 2. Feosol, not given. 3. Folic acid, not given. 4. Insulin. 5. Lipitor. 6. Lopressor. 7. Ibuprofen. 8. Neurontin. 9. ProAmatine 10 t.i.d. 10. Renagel 1600 with meals. 11. Singulair. 12. Tylenol. 13. Xanax. 14. Albumin. ASSESSMENT: 1. Recurrent hypotension. 2. End-stage renal disease. 3. Cardiomyopathy. 4. Anemia of chronic kidney disease. 5. Non-insulin dependent diabetes mellitus. 6. Chronic obstructive pulmonary disease, obstructive sleep apnea. 7. Anxiety. PLAN: 1. Stable dialysis currently. 2. Continue ProAmatine 10 mg three times a day. 3. Psychiatric followup. 4. ?Discharge planning. Marlyn Snow MD
[2018-01-16] MEDS ORDERED: Sodium Chloride 0.9% 250 ML IV STA (15:41)
--- NOTE | 2018-01-16 19:30 | PN ---
DATE: 01/16/2018 PULMONARY PROGRESS NOTE REFERRING PHYSICIAN: Taylor House MD SUBJECTIVE: She is lying in the bed, sleepy, arousable. No headache. No rhinitis. No nausea. No vomiting. No diarrhea. Has trace leg swelling. OBJECTIVE: GENERAL: In no acute distress. VITAL SIGNS: Temperature is 98, heart rate is 57, respiratory rate is 18, blood pressure 110/86, and pulse ox 98% on room air. HEENT: Moist mucous membrane. Crowded airway. Mallampati score is 4. NECK: Supple. No JVD. LUNGS: Has a prolonged expiratory phase with few crackles at bases. HEART: S1 and S2. ABDOMEN: Soft and nontender. No organomegaly. EXTREMITIES: Does have trace edema. NEUROLOGIC: Sleepy and arousable. MEDICATIONS: She is on eyedrops, also on Aranesp 60 mcg weekly, Ativan 0.5 mg every 6 hours p.r.n. for agitation, DuoNeb q.i.d., ferrous sulfate mg daily, folic acid 1 mg daily, insulin coverage, Levemir 10 units subcutaneously a.c.b. and at bedtime, Lipitor 20 mg daily, metoprolol tartrate 12.5 mg twice a day, Motrin 400 mg every 6 hours p.r.n., gabapentin 100 mg daily, midodrine 10 mg three times a day, Renagel 1600 mg with meals, Singulair 10 mg daily, Tylenol p.r.n. basis, and Xanax 0.25 mg twice a day p.r.n. LABORATORY DATA: Shows hemoglobin 11.1, hematocrit 37.2, WBC 6.6, and platelet is 179. Had ABG done today showed pH of 7.21, pCO2 of 62, 48 that was on nasal cannula. Sodium 134, potassium 5.2, chloride 96, bicarbonate 28, BUN 24, creatinine 4, glucose is 101, calcium is 8.5, phosphorus 5, and magnesium 1.9. AST 25, ALT 25, alk phos is 267, and ammonia 59. Albumin is 3.1. IMPRESSION AND PLAN: Chronic obstructive lung disease; hypoventilation syndrome; renal failure, dialysis dependent; pulmonary hypertension; cardiac diastolic dysfunction; post dialysis hypotension; and respiratory failure with CO2 retention. We will continue encourage bilevel positive airway pressure. If sedative given, she need to be placed on bilevel positive airway pressure. Keep head at 45 degrees, gastric prophylaxis, and bronchodilators. Thank you and we will follow with you. Joss Arias MD
[2018-01-16] MEDS: Latanoprost 2.5 ml Opht Soln OD SCH (23:15)
--- NOTE | 2018-01-17 00:49 | PN ---
DATE: 01/16/2018 SUBJECTIVE: The patient is a 73-year-old female. The patient is seen and examined at the bedside on 01/16/2018. The patient is sleepy, arousable, with BiPAP. No fever. No chills. No nausea or vomiting. No hematuria or hematochezia. No headache or dizziness. No chest pain. No palpitation. PHYSICAL EXAMINATION: VITAL SIGNS: Temperature 98, heart rate 57, respiratory rate 18, blood pressure 110/80, pulse oximetry 98% on room air. HEENT: Normocephalic and atraumatic. Eyes PERRLA. Extraocular movements intact. Conjunctivae clear. Nose patent. Mucous membranes moist. NECK: Supple. No carotid bruit, JVD or thyromegaly. CHEST: Bilaterally symmetrical. HEART: S1 and S2 are positive. LUNGS: Clear to auscultation. ABDOMEN: Soft. Bowel sounds present. No organomegaly. EXTREMITIES: No edema. No cyanosis. NEUROLOGIC: The patient is sleepy, arousable. MEDICATIONS: Eye drops, Ativan, DuoNeb, ferrous sulfate, folic acid, insulin coverage, Lipitor, metoprolol, Motrin, gabapentin, Renagel, Tylenol, Xanax. LABORATORY DATA: Hemoglobin 11.1, hematocrit 37.2, white blood cells 6.6, platelets 179. Sodium 134, potassium 5.2, BUN 24, creatinine 4, glucose 101. AST 25, ALT 25. ASSESSMENT AND PLAN: Ms. Debby Olguin is a 73-year-old lady with chronic obstructive pulmonary disease, hypoventilation syndrome, renal failure, dialysis dependent, pulmonary hypertension, cardiac diastolic dysfunction, post dialysis hypotension, respiratory failure. Continue current bilevel positive airway pressure. Keep head elevated 45 degrees. Gastric and deep venous thrombosis prophylaxis. Discussion done with the nursing staff. Appreciated Dr. Arias, Dr. Snow, and Dr. Bah notes. We will follow up. Taylor House MD
[2018-01-17] MEDS: Brimonidine 0.15% 50 DROP/5 ML BOTTLE OD SCH ×3 (06:53→22:33)
[2018-01-17] MEDS: Insulin Reg-LOW-Coverage SC SCH ×4 (07:15→22:12)
[2018-01-17] MEDS ORDERED: Dextrose 50% SYRINGE Inj (50 ml) IVP ONE ×2 (07:29→21:58)
[2018-01-17] MEDS ORDERED: Dextrose 50% SYRINGE Inj (50 ml) ONE (07:30)
[2018-01-17 07:38] LABS: ARTERIAL BLOOD GAS O2 SAT 94.7 % (95-98); ARTERIAL BLOOD GAS TCO2 28.5 mmol.L (22-28)
[2018-01-17 07:48] LABS: ARTERIAL BLOOD GAS PCO2 80 mm/Hg (35-45); ARTERIAL BLOOD GAS PH 7.12 (7.35-7.45)
--- NOTE | 2018-01-17 08:18 | PCM.RRT ---
SOFTWARE BUSINESS ANALYST Nurse Assessment - Situation Date: 01/17/18 Time SOFTWARE BUSINESS ANALYST was called: 07:18 SOFTWARE BUSINESS ANALYST Responder Arrival Time: 07:20 SOFTWARE BUSINESS ANALYST Location:: [address] [place] [address] Room Number: 375-1 SOFTWARE BUSINESS ANALYST Reason for Call: Hypotension, Looks Sicker SOFTWARE BUSINESS ANALYST Called By: RN - IV IV Inserted during SOFTWARE BUSINESS ANALYST?: No - Respiratory Oxygen Delivery Method: Nasal Cannula @L/min Oxygen Flow Rate: 5 Was the Patient Ventilated with Bag/Mask 100% O2?: No - Medication Medications Administered During SOFTWARE BUSINESS ANALYST: 1/2 amp 50% dextrose - Diagnostic Test Ordered EKG: Yes CT Scan: Yes (head) - Stat Labs Ordered SOFTWARE BUSINESS ANALYST Stat Labs Ordered: ABG CPR started during SOFTWARE BUSINESS ANALYST?: No - Vital Signs Vital Sign: Rapid Response Vital Sign Blood Pressure 53/26 Pulse Rate 88 Respiratory Rate 18 Temperature 99 F Oxygen Saturation 95 - Finger Stick Blood Glucose Finger Stick Blood Glucose: 81 I.Reason for SOFTWARE BUSINESS ANALYST - A) Acute Change in Patient: (Select all that apply): Staff member or family is worried about patient Subjective: Rapid response called at 0718 for lethargy/poorly-responsive, hypotensive to 80's/30's on bedside vitals. Responded immediately. Patient lethargic but arousable with sternal rub. Maltese speaking only. When asked how she is, responds "good," but any other questions (if she answers) is answered non- sensically. As per chart review and nursing, found to be CO2 retaining and acidotic on ABG yesterday, was supposed to wear Bipap but was removing overnight due to dislike/discomfort with mask. No focal deficits appreciated on exam. Diffusely swollen bilateral upper extremities, but able to palpate bilateral radial pulses. Decreased breath sounds without rales/ronchi/wheezes in all pepe, likely 2/2 body habitus. Sats on 5L NC appropriate. - Neurological Status (Select all that apply): Confused - Respiratory Oxygen Delivery Method: Nasal Cannula @L/min Oxygen Flow Rate: 5 - Constitutional Appears: Non-toxic, Confused, Chronically Ill, Other (Obese) - Head Head Exam: ATRAUMATIC, NORMAL INSPECTION, NORMOCEPHALIC - Eyes Eye Exam: Normal appearance. absent: Conjunctival injection, Scleral icterus - Respiratory Exam Respiratory Exam: Decreased Breath Sounds (mild-moderate in all pepe), NORMAL BREATHING PATTERN. absent: Accessory Muscle Use, Chest Wall Tenderness, Rales, Rhonchi, Wheezes Additional comments: wearing NC set at 5L O2 Bull neck, mallampati 3-4 - Cardiovascular Exam Cardiovascular Exam: REGULAR RHYTHM, RRR, +S1, +S2. absent: Bradycardia, Tachycardia, Irregular Rhythm, JVD, +S4 - GI/Abdominal Exam GI & Abdominal Exam: Soft, Normal Bowel Sounds. absent: Distended, Firm, Rigid, Diminished Bowel Sounds, Hyperactive Bowel Sounds, Hypoactive Bowel Sounds - Neurological Exam Additional exam: lethargic, confused, but arousable, able to follow some simple commands - Extremities Exam Additional comments: bilateral UE edematous with pitting diffusely, faintly palpable bilateral radial pulses +1-2 LE pitting edema bilaterally Plan - Assessment of Findings&Treatment Plan -EKG obtained, NSR, no change appreciated when compared to prior -CT head obtained, no acute stroke or bleed appreciated -BP improved to 120's systolic after returning from CT head, patient more awake and moving after transferred onto and back off CT station -ABG obtained, concerning for CO2 retention and acidosis, pH 7.12, pco2 80, po2 67, hco3 26; placed patient on Bipap at 20E/5I/30%/Rate 16, repeat ABG in 2 hours Discussed with patient's attending, Dr. House, who is aware with and agrees with my plan. Addendum: -repeat ABG after 2 hours on Bipap ph 7.15, pco2 75, po2 64, hco3 26.1, concerning for hypercarbic respiratory failure not amenable to Bipap. Case discussed with social services analyst test lead application testing, who agrees with need to transfer to ICU, with possible need for intubation. Primary (Dr. House) notified. Transferred to ICU
[2018-01-17] MEDS: Albuterol-Ipratrop 3 mg / 0.5 (3 ml) UD IH SCH ×5 (09:04→20:51)
--- NOTE | 2018-01-17 09:25 | CT ---
Date of service: 01/17/2018 PROCEDURE: CT HEAD WITHOUT CONTRAST. 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 TECHNIQUE: Axial computed tomography images were obtained through the head/brain without intravenous contrast. Radiation dose: Total exam DLP = 1722.99 mGy-cm. This CT exam was performed using one or more of the following dose reduction techniques: Automated exposure control, adjustment of the mA and/or kV according to patient size, and/or use of iterative reconstruction technique. FINDINGS: Study is limited by motion artifact. HEMORRHAGE: No parenchymal, subarachnoid or extra-axial hemorrhage. Hemorrhage. BRAIN: Mild chronic periventricular white matter ischemic changes seen extending peripherally into the deep white matter both cerebral hemispheres... Note that the possibility of a small hyperacute infarct cannot be completely excluded. Mild generalized volume loss. No obvious parenchymal nor extra-axial masses or collections. Vascular calcifications both carotid siphons VENTRICLES: No obstructive hydrocephalus. CALVARIUM: Unre there are no acute calvarial fractures. PARANASAL SINUSES: Focal area polypoid like mucosal thickening and/or mucous retention cyst right maxillary antrum. MASTOID AIR CELLS: Right mastoid air complex and middle ear canal are opacified.. OTHER FINDINGS: Changes right-sided cataract surgery IMPRESSION: Limited motion degraded study. No acute intracranial hemorrhage. Mild chronic periventricular white matter ischemic changes.
--- NOTE | 2018-01-17 09:47 | CP.PCM.PN ---
Subjective - Date & Time of Evaluation Date of Evaluation: 01/17/18 Time of Evaluation: 07:35 - Subjective Subjective: Post REMOTE RECRUITER for hypotension and lethargic, for CT of head Reason for consultation and follow up: Cardiac evaluation of chest pain, atypi dragan chest pain, chest tenderness, history of coronary artery disease, hypertension Seen and examined by me and Dr. Bah Objective - Vital Signs/Intake and Output Vital Signs (last 24 hours): Temp Pulse Resp BP Pulse Ox 99 F 86 20 83/37 L 95 01/17/18 08:44 01/17/18 08:44 01/17/18 08:44 01/17/18 08:44 01/17/18 08:44 - Medications Medications: Current Medications Acetaminophen (Tylenol 325mg Tab) 650 mg PO Q4H PRN PRN Reason: Fever >100.5 F Last Admin: 01/14/18 17:30 Dose: 650 mg Albuterol/Ipratropium (Duoneb 3 Mg/0.5 Mg (3 Ml) Ud) 3 ml IH QIDRESP COUNT INCLUDES THE [facility] Last Admin: 01/17/18 09:04 Dose: 3 ml Alprazolam (Xanax) 0.25 mg PO BID PRN; Protocol PRN Reason: Agitation Stop: 01/23/18 18:01 Atorvastatin Calcium (Lipitor) 20 mg PO DIN COUNT INCLUDES THE [facility] Last Admin: 01/16/18 18:39 Dose: 20 mg Brimonidine Tartrate (Alphagan P 0.15% Opht) 0 drop OD Q8 COUNT INCLUDES THE [facility] Last Admin: 01/17/18 06:53 Dose: Not Given Darbepoetin Jovi (Aranesp) 60 mcg IVP Fr@1000 COUNT INCLUDES THE [facility] Last Admin: 01/16/18 09:27 Dose: 60 mcg Ferrous Sulfate (Feosol) 324 mg PO DAILY COUNT INCLUDES THE [facility] Last Admin: 01/16/18 10:00 Dose: Not Given Folic Acid (Folic Acid) 1 mg PO DAILY COUNT INCLUDES THE [facility] Last Admin: 01/16/18 10:00 Dose: Not Given Gabapentin (Neurontin) 100 mg PO DAILY COUNT INCLUDES THE [facility]; Protocol Last Admin: 01/16/18 13:15 Dose: 100 mg Ibuprofen (Motrin Tab) 400 mg PO Q6H PRN PRN Reason: Pain, moderate (4-7) Last Admin: 01/15/18 13:52 Dose: 400 mg Ibuprofen (Motrin Tab) 400 mg PO Q6H PRN PRN Reason: Pain, moderate (4-7) Insulin Detemir (Levemir) 10 unit SC ACBHS COUNT INCLUDES THE [facility] Last Admin: 01/16/18 23:16 Dose: Not Given Insulin Human Regular (Humulin R Low) 0 units SC ACHS COUNT INCLUDES THE [facility]; Protocol Last Admin: 01/17/18 07:15 Dose: Not Given Latanoprost (Xalatan Opht) 0 ml OD HS COUNT INCLUDES THE [facility] Last Admin: 01/16/18 23:15 Dose: 2.5 ml Lorazepam (Ativan) 0.5 mg IVP Q6H PRN; Protocol PRN Reason: Agitation Last Admin: 01/16/18 14:11 Dose: 0.5 mg Metoprolol Tartrate (Lopressor) 12.5 mg PO Q12 COUNT INCLUDES THE [facility] Last Admin: 01/16/18 23:13 Dose: 12.5 mg Midodrine (Proamatine) 10 mg PO TID COUNT INCLUDES THE [facility] Last Admin: 01/16/18 18:35 Dose: 10 mg Montelukast Sodium (Singulair) 10 mg PO HS COUNT INCLUDES THE [facility] Last Admin: 01/16/18 23:13 Dose: 10 mg Sevelamer HCl (Renagel) 1,600 mg PO WM COUNT INCLUDES THE [facility] Last Admin: 01/16/18 18:38 Dose: 1,600 mg - Labs Labs: 01/16/18 09:50 01/16/18 09:50 - ENT Exam ENT Exam: Mucous Membranes Dry - Respiratory Exam Respiratory Exam: Decreased Breath Sounds, NORMAL BREATHING PATTERN - Cardiovascular Exam Cardiovascular Exam: +S1, +S2 - Exam Additional comments: ESRD on hemodialysis - Neurological Exam Additional comments: lethargic - Skin Skin Exam: Normal Color Assessment and Plan - Assessment and Plan (Free Text) Assessment: A 73 year old female who was brought to the ER due to hypotension, on hemodialysis. History of coronary artery disease post stents in 12/2014, ESDR on hemodialysis 3x a week. Complaining of chest pain, chest tender to touch, history of life vest . Recent echo LVEF, preserved LV function thus life vest discontinued. Being followed up by Dr. Motta. EKG normal sinus rhythm, no ischemia.Very anxious, given Xanax.Motrin for chest tenderness. On CPAP. Did not have CPAP all night, hypotensive and very lethargic, Post REMOTE RECRUITER for hypotension. and lethargic. CT of head done negative for bleeding. ABG done-.02/11/80/67. CO2 narcosis. Plan: Post REMOTE RECRUITER for hypotension and lethargy Glucose 81- 1/2 amp of D50W given CT of head done- No bleeding, mild chronic periventricular white matter ischemia changes ABG done-.02/11/PCO2-80/PO2- 67 CO2 Narcosis, place on BIPAP/CPAP continously Heart rate controlled Blood pressure better SBP 80's On Lipitor 20 mg daily, Lopressor 12.5 mg BID, Midorine 10 mg TID Continue current medications Continue current treatment Chart reviewed Will follow up Plan and treatment discussed with Dr. Bah
[2018-01-17 11:03] LABS: ARTERIAL BLOOD GAS HCO3 26.1 mmol/L (21-28); ARTERIAL BLOOD GAS HEMOGLOBIN 11.6 g/dL (11.7-17.4); ARTERIAL BLOOD GAS O2 CAPACITY 15.8 mL/dl (16-24); ARTERIAL BLOOD GAS O2 CONTENT 14.8 ML/dl (15-23); ARTERIAL BLOOD GAS O2 SAT 93.6 % (95-98); ARTERIAL BLOOD GAS TCO2 28.4 mmol.L (22-28)
[2018-01-17 11:28] LABS: ARTERIAL BLOOD GAS PH 7.15 (7.35-7.45)
[2018-01-17 11:29] LABS: ARTERIAL BLOOD GAS PCO2 75 mm/Hg (35-45)
[2018-01-17] MEDS: Insulin Detemir 100 units/ml Vial (Levemir) SC SCH ×2 (11:37→22:13)
--- NOTE | 2018-01-17 12:16 | PN ---
DATE: 01/17/2018 SEX OF THE PATIENT: Female. AGE OF THE PATIENT: 73. REASON FOR CONSULTATION: Followup cardiac evaluation, atypical chest pain, CO2 narcosis, removed the BiPAP, recently FLOW MANAGER. This note is in addition to dictated by nurse practitioner. Patient is now much awake and alert and started screaming again, was on CPAP, but apparently looks like she was not using. ABG showed pCO2 of 80, pH of 7.12, severe hypercapnic, altered mental status secondary to probably CO2 narcosis. RECOMMENDATION: Aggressive pulmonary treatment and emphasis for the CPAP. We will discuss with Pulmonary. Thank you Dr. House for opportunity in taking care of patient Debby Olguin. CVS status is stable. Last ejection fraction preserved. No evidence of acute SC. History of end-stage renal disease, on dialysis. As mentioned above, this note is in addition to dictated by nurse practitioner, Zoya Bradley. Overall, patient's condition is critical, long-term prognosis guarded because of overall condition, DNR should be discussed with the patient's family. Joss Bah MD
[2018-01-17 12:55] LABS: ALB/GLOB RATIO 0.8 (1.1-1.8); ALBUMIN 3.4 g/dL (3.0-4.8); CALCIUM 8.9 mg/dL (8.4-10.5)
[2018-01-17 12:59] LABS: HEMOGLOBIN 10.9 g/dL (12.0-16.0); MEAN CELL VOLUME 120.5 fl (80.0-105.0); RBC 3.02 10^6/uL (3.5-6.1); WHITE BLOOD COUNT 6.6 10^3/uL (4.5-11.0)
[2018-01-17 13:00] LABS: BASO # 0.02 K/mm3 (0.0-2.0); BASO % 0.3 % (0.0-3.0); EOS # 0.1 (0.0-0.7); EOS % 1.1 % (1.5-5.0); GRAN # 3.62 (1.4-6.5); GRAN % 54.9 % (50.0-68.0); LYMPH # 1.6 (1.2-3.4); LYMPH % 23.5 % (22.0-35.0); MEAN CORPUSCULAR HEMOGLOBIN 36.1 pg (25.0-35.0); MEAN CORPUSCULAR HGB CONC 29.9 g/dl (31.0-37.0); MEAN PLATELET VOLUME 10.5 fl (7.0-11.0); MONO # 1.3 (0.1-0.6); MONO % 20.2 % (1.0-6.0); PLATELET COUNT 204 10^3/uL (120.0-450.0); RED CELL DISTRIBUTION WIDTH 15.5 % (11.5-14.5)
[2018-01-17 13:22] LABS: ANISOCYTOSIS 1+; ATYPICAL LYMPHOCYTE 3 % (0.0-0.0); BAND 1 % (0-2); BASOPHIL 1 % (0.0-1.0); EOSINOPHIL 2 % (0.0-3.0); LYMPHOCYTE 15 % (22.0-35.0); MONOCYTE 21 % (1.0-6.0); NEUTROPHIL 57 % (50.0-70.0); PLATELET ESTIMATE NORMAL (NORMAL)
--- NOTE | 2018-01-17 15:08 | CP.PCM.CON ---
<Young Sommers - Last Filed: 01/17/18 16:54> History of Present Illness - History of Present Illness History of Present Illness: Young Sommers, ICU Consult Note for Dr. Rosario Patient is a 73 year old F with PMHx of ESRD on hemodialysis (M/W/F), DM, HTN, CAD with stent placement (12/2014), and anemia, who presented to the ED from a dialysis center for evaluation of hypotension and dizziness. Upon arrival to the ED patient reports persistent dizziness and her BP was measured to be 60 SBP. Patient was stabilized. During hospital course, C S S REPRESENTATIVE was called for hypotension and lethargy. ABG was done and showed: 7.12/80/67. She was placed on CPAP as a result. Repeat Head CT showed no acute intracranial hemorrhage. ICU was consulted for management of hypercapnia. Patient was examined in the unit. She complained of dry mouth. Denied shortness of breath, abdominal pain, lower extremity pain and swelling. In regards to mental status, she is alert and oriented x3. She is answering questions appropriately. Patient was currently on CPAP 24/6/40%. A full 12 point ROS was conducted and unremarkable except as stated above. PMD: Dr. House [place]: Dr. Snow PMHx: ESRD on HD (M/W/F), DM, HTN, CAD (stent 12/2014), CHF-pEF, Aortic stenosis, COPD, Legally Blind, CVA, Anemia PSHx: hysterectomy, CAD with stent Meds: see MAR Allergies: fish, morphine, oxycodone, penicillin FamHx: father and mother non-contributory SocialHx: denies smoking, drinking, and recreational drug use. Review of Systems - Review of Systems All systems: reviewed and no additional remarkable complaints except (as per HPI) Past Patient History - Infectious Disease Hx of Infectious Diseases: None - Tetanus Immunizations Tetanus Immunization: Unknown - Past Social History Smoking Status: Never Smoked - CARDIAC Hx Cardiac Disorders: Yes (CAD, coronary stent placement,) Hx Hypertension: Yes - PULMONARY Hx Chronic Obstructive Pulmonary Disease (COPD): Yes - NEUROLOGICAL HX Cerebrovascular Accident: Yes (but pt denies) - HEENT Hx HEENT Problems: Yes Hx Blind: Yes (legally blind) Hx Cataracts: Yes Hx Glaucoma: Yes Other/Comment: mastoiditis - RENAL Hx Renal Failure: Yes - ENDOCRINE/METABOLIC Hx Diabetes Mellitus Type 2: Yes - HEMATOLOGICAL/ONCOLOGICAL Hx Blood Disorders: Yes Hx Anemia: Yes (blood transfusion) Hx Shingles: Yes - INTEGUMENTARY Hx Dermatological Problems: Yes (ble cellulitis) Other/Comment: ble +2 pitting edema multiple skin discolorations, lue multiple skin discoloratins, old mid abd surgical scar, dark brown skin to b/l groin, brown discolored to b/l lower abd, optifoam over stage 2 split in skin over butt [id number] x 0.2cm - MUSCULOSKELETAL/RHEUMATOLOGICAL Hx Arthritis: Yes - GASTROINTESTINAL Hx Gastrointestinal Disorders: Yes (obese) - GENITOURINARY/GYNECOLOGICAL Hx Genitourinary Disorders: Yes (anuria) - PSYCHIATRIC Hx Psychophysiologic Disorder: Yes Hx Depression: Yes Hx Emotional Abuse: No Hx Physical Abuse: No Hx Substance Use: No - SURGICAL HISTORY Hx Cholecystectomy: Yes Hx Coronary Stent: Yes Hx Hysterectomy: Yes Other/Comment: lav graft removal graft, dialysis access rt upper chest wall - ANESTHESIA Hx Anesthesia Reactions: No Hx Malignant Hyperthermia: No Meds Allergies/Adverse Reactions: Allergies Allergy/AdvReac Type Severity Reaction Status Date / Time FISH Allergy URTICARIA Verified 01/12/18 17:40 morphine Allergy ANAPHYLAXIS Verified 01/12/18 17:40 oxycodone Allergy ANAPHYLAXIS Verified 01/12/18 17:40 Penicillins Allergy ANAPHYLAXIS Verified 01/12/18 17:40 steroids Allergy ANAPHYLAXIS Uncoded 01/12/18 17:40 - Medications Medications: Current Medications Acetaminophen (Tylenol 325mg Tab) 650 mg PO Q4H PRN PRN Reason: Fever >100.5 F Last Admin: 01/14/18 17:30 Dose: 650 mg Albuterol/Ipratropium (Duoneb 3 Mg/0.5 Mg (3 Ml) Ud) 3 ml IH QIDRESP [facility] Last Admin: 01/17/18 11:20 Dose: 3 ml Alprazolam (Xanax) 0.25 mg PO BID PRN; Protocol PRN Reason: Agitation Stop: 01/23/18 18:01 Atorvastatin Calcium (Lipitor) 20 mg PO DIN [facility] Last Admin: 01/16/18 18:39 Dose: 20 mg Brimonidine Tartrate (Alphagan P 0.15% Opht) 0 drop OD Q8 [facility] Last Admin: 01/17/18 06:53 Dose: Not Given Darbepoetin Jovi (Aranesp) 60 mcg IVP Fr@1000 [facility] Last Admin: 01/16/18 09:27 Dose: 60 mcg Ferrous Sulfate (Feosol) 324 mg PO DAILY [facility] Last Admin: 01/17/18 11:36 Dose: Not Given Folic Acid (Folic Acid) 1 mg PO DAILY [facility] Last Admin: 01/17/18 11:36 Dose: Not Given Gabapentin (Neurontin) 100 mg PO DAILY [facility]; Protocol Last Admin: 01/17/18 11:38 Dose: Not Given Ibuprofen (Motrin Tab) 400 mg PO Q6H PRN PRN Reason: Pain, moderate (4-7) Last Admin: 01/15/18 13:52 Dose: 400 mg Ibuprofen (Motrin Tab) 400 mg PO Q6H PRN PRN Reason: Pain, moderate (4-7) Insulin Detemir (Levemir) 10 unit SC [facility] Last Admin: 01/17/18 11:37 Dose: Not Given Insulin Human Regular (Humulin R Low) [address] [facility]; Protocol Last Admin: 01/17/18 11:36 Dose: Not Given Latanoprost (Xalatan Opht) 0 ml OD HS [facility] Last Admin: 01/16/18 23:15 Dose: 2.5 ml Lorazepam (Ativan) 0.5 mg IVP Q6H PRN; Protocol PRN Reason: Agitation Last Admin: 01/16/18 14:11 Dose: 0.5 mg Metoprolol Tartrate (Lopressor) 12.5 mg PO Q12 [facility] Last Admin: 01/17/18 11:38 Dose: Not Given Midodrine (Proamatine) 10 mg PO TID [facility] Last Admin: 01/16/18 18:35 Dose: 10 mg Montelukast Sodium (Singulair) 10 mg PO HS [facility] Last Admin: 01/16/18 23:13 Dose: 10 mg Sevelamer HCl (Renagel) 1,600 mg PO WM [facility] Last Admin: 01/17/18 11:38 Dose: Not Given Physical Exam - Head Exam Head Exam: ATRAUMATIC, NORMAL INSPECTION, NORMOCEPHALIC - Eye Exam Eye Exam: EOMI, Normal appearance Pupil Exam: NORMAL ACCOMODATION - ENT Exam ENT Exam: Mucous Membranes Moist, Normal Exam Additional comments: CPAP in place. - Neck Exam Neck exam: Positive for: Full Rom - Respiratory Exam Respiratory Exam: Clear to Auscultation Bilateral. absent: Accessory Muscle Use, Rales, Rhonchi, Wheezes - Cardiovascular Exam Cardiovascular Exam: RRR, +S1, +S2 - GI/Abdominal Exam GI & Abdominal Exam: Normal Bowel Sounds, Soft. absent: Guarding, Rebound, Rigid - Extremities Exam Additional comments: Diffuse swelling of the upper extremities bilaterally. No pitting edema of the lower extremities. - Neurological Exam Neurological exam: Alert, Oriented x3 - Skin Skin Exam: Dry, Intact, Normal Color, Warm Results - Vital Signs Recent Vital Signs: Last Vital Signs Temp 99 F 01/17/18 08:44 Pulse 80 01/17/18 15:00 Resp 19 01/17/18 15:00 BP 92/39 L 01/17/18 15:00 Pulse Ox 98 01/17/18 15:00 - Labs Result Diagrams: 01/17/18 12:15 01/17/18 12:15 Labs: Laboratory Results - last 24 hr 01/16/18 01/16/18 01/16/18 12:57 16:30 21:11 WBC RBC Hgb Hct MCV MCH MCHC RDW Plt Count MPV Gran % Lymph % (Auto) Ponce % (Auto) Eos % (Auto) Baso % (Auto) Gran # Lymph # (Auto) Ponce # (Auto) Eos # (Auto) Baso # (Auto) Neutrophils % (Manual) Band Neutrophils % Lymphocytes % (Manual) Atypical Lymphs % Monocytes % (Manual) Eosinophils % (Manual) Basophils % (Manual) Platelet Evaluation Anisocytosis (manual) Macrocytosis (manual) pCO2 pO2 HCO3 ABG pH ABG Total CO2 ABG O2 Saturation ABG O2 Content ABG Base Excess ABG Hemoglobin ABG Carboxyhemoglobin POC ABG HHb (Measured) ABG Methemoglobin ABG O2 Capacity ABG Potassium Hgb O2 Saturation Sodium Chloride Glucose Lactate FiO2 Potassium Carbon Dioxide Anion Gap BUN Creatinine Est GFR ( Amer) Est GFR (Non-Af Amer) POC Glucose (mg/dL) 95 120 H 97 Random Glucose Calcium Phosphorus Magnesium Total Bilirubin AST ALT Alkaline Phosphatase Total Protein Albumin Globulin Albumin/Globulin Ratio Arterial Blood Potassium 01/17/18 01/17/18 01/17/18 07:30 08:09 08:25 WBC RBC Hgb Hct MCV MCH MCHC RDW Plt Count MPV Gran % Lymph % (Auto) Ponce % (Auto) Eos % (Auto) Baso % (Auto) Gran # Lymph # (Auto) Ponce # (Auto) Eos # (Auto) Baso # (Auto) Neutrophils % (Manual) Band Neutrophils % Lymphocytes % (Manual) Atypical Lymphs % Monocytes % (Manual) Eosinophils % (Manual) Basophils % (Manual) Platelet Evaluation Anisocytosis (manual) Macrocytosis (manual) pCO2 80 H* pO2 67.0 L HCO3 26.0 ABG pH 7.12 L* ABG Total CO2 28.5 H ABG O2 Saturation 94.7 L ABG O2 Content ABG Base Excess -5.2 L ABG Hemoglobin ABG Carboxyhemoglobin POC ABG HHb (Measured) ABG Methemoglobin ABG O2 Capacity ABG Potassium 4.2 Hgb O2 Saturation Sodium 132.0 Chloride 97.0 L Glucose 209 H Lactate 1.0 FiO2 32.0 Potassium Carbon Dioxide Anion Gap BUN Creatinine Est GFR ( Amer) Est GFR (Non-Af Amer) POC Glucose (mg/dL) 118 H 117 H Random Glucose Calcium Phosphorus Magnesium Total Bilirubin AST ALT Alkaline Phosphatase Total Protein Albumin Globulin Albumin/Globulin Ratio Arterial Blood Potassium 4.2 01/17/18 01/17/18 01/17/18 10:55 11:26 12:15 WBC 6.6 RBC 3.02 L Hgb 10.9 L Hct 36.4 MCV 120.5 H MCH 36.1 H MCHC 29.9 L RDW 15.5 H Plt Count 204 MPV 10.5 Gran % 54.9 Lymph % (Auto) 23.5 Ponce % (Auto) 20.2 H Eos % (Auto) 1.1 L Baso % (Auto) 0.3 Gran # 3.62 Lymph # (Auto) 1.6 Ponce # (Auto) 1.3 H Eos # (Auto) 0.1 Baso # (Auto) 0.02 Neutrophils % (Manual) 57 Band Neutrophils % 1 Lymphocytes % (Manual) 15 L Atypical Lymphs % 3 H Monocytes % (Manual) 21 H Eosinophils % (Manual) 2 Basophils % (Manual) 1 Platelet Evaluation Normal Anisocytosis (manual) 1+ Macrocytosis (manual) 1+ pCO2 75 H* pO2 64.0 L HCO3 26.1 ABG pH 7.15 L* ABG Total CO2 28.4 H ABG O2 Saturation 93.6 L ABG O2 Content 14.8 L ABG Base Excess -4.0 L ABG Hemoglobin 11.6 L ABG Carboxyhemoglobin 2.1 H POC ABG HHb (Measured) 6.2 H ABG Methemoglobin 1.0 ABG O2 Capacity 15.8 L ABG Potassium Hgb O2 Saturation 90.7 L Sodium Chloride Glucose Lactate FiO2 30.0 Potassium Carbon Dioxide Anion Gap BUN Creatinine Est GFR ( Amer) Est GFR (Non-Af Amer) POC Glucose (mg/dL) 91 Random Glucose Calcium Phosphorus Magnesium Total Bilirubin AST ALT Alkaline Phosphatase Total Protein Albumin Globulin Albumin/Globulin Ratio Arterial Blood Potassium 01/17/18 12:15 WBC RBC Hgb Hct MCV MCH MCHC RDW Plt Count MPV Gran % Lymph % (Auto) Ponce % (Auto) Eos % (Auto) Baso % (Auto) Gran # Lymph # (Auto) Ponce # (Auto) Eos # (Auto) Baso # (Auto) Neutrophils % (Manual) Band Neutrophils % Lymphocytes % (Manual) Atypical Lymphs % Monocytes % (Manual) Eosinophils % (Manual) Basophils % (Manual) Platelet Evaluation Anisocytosis (manual) Macrocytosis (manual) pCO2 pO2 HCO3 ABG pH ABG Total CO2 ABG O2 Saturation ABG O2 Content ABG Base Excess ABG Hemoglobin ABG Carboxyhemoglobin POC ABG HHb (Measured) ABG Methemoglobin ABG O2 Capacity ABG Potassium Hgb O2 Saturation Sodium 134 Chloride 98 Glucose Lactate FiO2 Potassium 4.7 Carbon Dioxide 27 Anion Gap 14 BUN 19 Creatinine 3.4 H Est GFR ( Amer) 16 Est GFR (Non-Af Amer) 13 POC Glucose (mg/dL) Random Glucose 100 Calcium 8.9 Phosphorus 4.8 H Magnesium 1.9 Total Bilirubin 0.8 AST 54 H D ALT 30 Alkaline Phosphatase 271 H Total Protein 7.3 Albumin 3.4 Globulin 3.9 Albumin/Globulin Ratio 0.8 L Arterial Blood Potassium Assessment & Plan - Assessment and Plan (Free Text) Assessment: Patient is a 73 year old F with PMHx of ESRD on hemodialysis (M/W/F), DM, HTN, CAD with stent placement (12/2014), and anemia, who presented to the ED from a dialysis center for evaluation of hypotension and dizziness. During hospital course, C S S REPRESENTATIVE was called for hypotension and lethargy. Patient was noted to be in hypercapnic respiratory failure. ICU was consulted for evaluation. Plan: Neuro: - AAOx3; mental status improved since C S S REPRESENTATIVE was called - Patient has occasional episodes of confusion Cardio: - BP is now 104/60; will monitor - Hypotensive during C S S REPRESENTATIVE - c/w metoprolol and lipitor - Hx of HTN, CAD (stent placement), CHF-pEF, Aortic stenosis - Echo (12/10/17): EF 50%. Evidence of pulmonary hypertension. Pulm: - Admitted for Hypercapnic Respiratory Failure 2/2 COPD Exacerbation - azithromycin - methylprednisolone - Held xanax and ativan - c/w duonebs, spiriva, midodrine - Continue with CPAP - Hx of COPD; patient has history of non-compliance GI: - GI ppx - NPO Heme: - H/H stable Renal: - BUN/Cr is 19/3.4 - Patient is on HD (M/W/) Endo: - Hx of DM - ISS Dispo: Patient will be monitored in the ICU. Case was discussed and reviewed with Attending Physician, Dr. Rosario <Viviana Rosario - Last Filed: 01/18/18 17:29> Meds - Medications Medications: Current Medications Acetaminophen (Tylenol 325mg Tab) 650 mg PO Q4H PRN PRN Reason: Fever >100.5 F Last Admin: 01/14/18 17:30 Dose: 650 mg Albuterol/Ipratropium (Duoneb 3 Mg/0.5 Mg (3 Ml) Ud) 3 ml IH QIDRESP [facility] Last Admin: 01/18/18 16:38 Dose: 3 ml Alprazolam (Xanax) 0.25 mg PO BID PRN; Protocol PRN Reason: Agitation Stop: 01/23/18 18:01 Armodafinil (Nuvigil 250 Mg Tab) 250 mg PO DAILY [facility] Last Admin: 01/18/18 15:00 Dose: Not Given Atorvastatin Calcium (Lipitor) 20 mg PO DIN [facility] Last Admin: 01/17/18 19:37 Dose: Not Given Brimonidine Tartrate (Alphagan P 0.15% Opht) 0 drop OD Q8 [facility] Last Admin: 01/18/18 05:32 Dose: 1 drop Darbepoetin Jovi (Aranesp) 60 mcg IVP Fr@1000 [facility] Last Admin: 01/16/18 09:27 Dose: 60 mcg Ferrous Sulfate (Feosol) 324 mg PO DAILY [facility] Last Admin: 01/18/18 14:57 Dose: Not Given Folic Acid (Folic Acid) 1 mg PO DAILY [facility] Last Admin: 01/18/18 14:57 Dose: Not Given Folic Acid (Folic Acid) 1 mg IVP DAILY [facility] Last Admin: 01/18/18 16:11 Dose: 1 mg Gabapentin (Neurontin) 100 mg PO DAILY [facility]; Protocol Last Admin: 01/18/18 14:59 Dose: Not Given Heparin Sodium (Porcine) (Heparin) 5,000 units SC Q12 [facility]; Protocol Last Admin: 01/18/18 11:26 Dose: 5,000 units Azithromycin 250 mg/ Sodium (Chloride) 250 mls @ 167 mls/hr IVPB 1600 [facility]; Protocol Last Admin: 01/18/18 16:11 Dose: 167 mls/hr Dextrose (Dextrose 5% In Water 1000 Ml) 1,000 mls @ 100 mls/hr IV .Q10H [facility] Last Admin: 01/18/18 14:49 Dose: 100 mls/hr Ibuprofen (Motrin Tab) 400 mg PO Q6H PRN PRN Reason: Pain, moderate (4-7) Insulin Detemir (Levemir) 10 unit SC [facility] Last Admin: 01/18/18 07:30 Dose: Not Given Insulin Human Regular (Humulin R Low) 0 units SC ACHS [facility]; Protocol Last Admin: 01/18/18 16:45 Dose: 2 unit Latanoprost (Xalatan Opht) 0 ml OD HS [facility] Last Admin: 01/17/18 22:34 Dose: 2.5 ml Lorazepam (Ativan) 0.5 mg IVP Q6H PRN; Protocol PRN Reason: Anxiety Methylprednisolone (Solu-Medrol) 40 mg IVP Q12 [facility] Last Admin: 01/18/18 11:27 Dose: 40 mg Metoprolol Tartrate (Lopressor) 12.5 mg PO Q12 [facility] Last Admin: 01/18/18 14:59 Dose: Not Given Midodrine (Proamatine) 10 mg PO TID [facility] Last Admin: 01/18/18 15:00 Dose: Not Given Montelukast Sodium (Singulair) 10 mg PO HS [facility] Last Admin: 01/17/18 22:15 Dose: Not Given Pantoprazole Sodium (Protonix Inj) 40 mg IVP DAILY [facility] Last Admin: 01/18/18 11:27 Dose: 40 mg Saliva Substitute (Saliva Substitute) 0 ml PO Q6 [facility] Last Admin: 01/18/18 14:48 Dose: 1 ml Sevelamer HCl (Renagel) 1,600 mg PO WM [facility] Last Admin: 01/18/18 12:00 Dose: Not Given Vitamin A (Vitamin A & D Oint Ud Foilpak) 1 ea TOP Q4 [facility] Last Admin: 01/18/18 14:48 Dose: 1 ea Results - Vital Signs Recent Vital Signs: Last Vital Signs Temp 98.3 F 01/18/18 04:00 Pulse 95 H 01/18/18 13:18 Resp 14 01/18/18 13:18 BP 125/61 01/18/18 12:34 Pulse Ox 74 L 01/18/18 13:00 - Labs Result Diagrams: 01/18/18 05:00 01/18/18 05:00 Labs: Laboratory Results - last 24 hr 01/17/18 01/18/18 01/18/18 21:42 05:00 05:00 WBC 6.2 RBC 3.51 Hgb 12.5 Hct 41.3 MCV 117.7 H MCH 35.6 H MCHC 30.3 L RDW 15.9 H Plt Count 211 MPV 10.5 pCO2 pO2 HCO3 ABG pH ABG Total CO2 ABG O2 Saturation ABG O2 Content ABG Base Excess ABG Hemoglobin ABG Carboxyhemoglobin POC ABG HHb (Measured) ABG Methemoglobin ABG O2 Capacity Hgb O2 Saturation FiO2 Sodium 134 Potassium 5.7 H* D Chloride 99 Carbon Dioxide 19 L Anion Gap 21 H BUN 23 H Creatinine 4.0 H Est GFR ( Amer) 13 Est GFR (Non-Af Amer) 11 POC Glucose (mg/dL) 79 Random Glucose 132 H Calcium 9.0 Phosphorus 5.2 H Magnesium 2.0 Total Bilirubin 1.2 AST 49 H ALT 19 Alkaline Phosphatase 273 H Total Protein 7.7 Albumin 3.3 Globulin 4.3 Albumin/Globulin Ratio 0.8 L 01/18/18 01/18/18 01/18/18 06:00 07:20 11:45 WBC RBC Hgb Hct MCV MCH MCHC RDW Plt Count MPV pCO2 50 H pO2 81.0 HCO3 21.4 ABG pH 7.24 L ABG Total CO2 22.9 ABG O2 Saturation 96.6 ABG O2 Content 16.7 ABG Base Excess -6.2 L ABG Hemoglobin 12.5 ABG Carboxyhemoglobin 1.5 POC ABG HHb (Measured) 3.3 ABG Methemoglobin 0.8 ABG O2 Capacity 17.3 Hgb O2 Saturation 94.4 L FiO2 40.0 Sodium Potassium Chloride Carbon Dioxide Anion Gap BUN Creatinine Est GFR ( Amer) Est GFR (Non-Af Amer) POC Glucose (mg/dL) 150 H 234 H Random Glucose Calcium Phosphorus Magnesium Total Bilirubin AST ALT Alkaline Phosphatase Total Protein Albumin Globulin Albumin/Globulin Ratio 01/18/18 16:11 WBC RBC Hgb Hct MCV MCH MCHC RDW Plt Count MPV pCO2 pO2 HCO3 ABG pH ABG Total CO2 ABG O2 Saturation ABG O2 Content ABG Base Excess ABG Hemoglobin ABG Carboxyhemoglobin POC ABG HHb (Measured) ABG Methemoglobin ABG O2 Capacity Hgb O2 Saturation FiO2 Sodium Potassium Chloride Carbon Dioxide Anion Gap BUN Creatinine Est GFR ( Amer) Est GFR (Non-Af Amer) POC Glucose (mg/dL) 221 H Random Glucose Calcium Phosphorus Magnesium Total Bilirubin AST ALT Alkaline Phosphatase Total Protein Albumin Globulin Albumin/Globulin Ratio Addendum Addendum: 01/17/18 17:28 MICU ATTENDING ADDENDUM FOR 01/17/2018: Patient seen and examined on 01/17 with housestaff. Case discussed in round with housestaff. Agree with note above with the following additions/exception: 73 f with PMHx of ESRD on HD MWF, DM, HTN, CAD with stent placement (12/2014), and anemia, who presented to the ED from a dialysis center for evaluation of hypotension and dizziness. She is familiar to our ICU as she was recently here with [facility]. She is a chronic CO2 retainer. We were asked to evaluate her for worsening resp acidosis again despite bipap trial. We will bring her to the unit and increase her delta on bipap to 26/6. Unfortunately she will require restraints as she is combative. Cont bipap throughout the night. Cont steroids and duonebs. Pulm on board as well. She has chronic cardiac issues including and CHF for which cardio is on board, will defer to them for recs. Rest of care above Bilal Rosario MD Pulmonary Critical Care and Sleep Medicine
[2018-01-17 15:42] LABS: ARTERIAL BLOOD GAS HEMOGLOBIN 10.4 g/dL (11.7-17.4); ARTERIAL BLOOD GAS O2 CAPACITY 14.4 mL/dl (16-24); ARTERIAL BLOOD GAS O2 CONTENT 14.2 ML/dl (15-23); ARTERIAL BLOOD GAS O2 SAT 98.7 % (95-98); ARTERIAL BLOOD GAS PCO2 51 mm/Hg (35-45); ARTERIAL BLOOD GAS PH 7.28 (7.35-7.45); ARTERIAL BLOOD GAS TCO2 25.6 mmol.L (22-28)
[2018-01-17] MEDS: Azithromycin 250 MG in Sodium Chloride 0.9% 250 ML IVPB SCH (16:32)
--- NOTE | 2018-01-17 17:27 | CARD ---
APPROVED REPORT Date of service: 01/17/2018 EKG Measurement Heart [id number] <Conclusion> Normal sinus rhythm Incomplete right bundle branch block Possible Inferior infarct, age undetermined Abnormal ECG
--- NOTE | 2018-01-17 19:54 | PN ---
DATE: 01/17/2018 SUBJECTIVE: The patient is seen lying in bed. She is lethargic. She is receiving BiPAP. She is currently in the ICU. She was on the floor, she was found to be hypotensive and lethargic. Her blood gas showed a pH of 7.12. She was found to have a pCO2 of 67. The patient was already on BiPAP. Rapid response was called. The patient has now been moved to the ICU. She remains lethargic but arousable. PHYSICAL EXAMINATION: GENERAL: Obese elderly lady lying in bed in the ICU. VITAL SIGNS: Blood pressure. 80/30, heart rate 86, respiratory rate 20, temperature 99. HEENT: Normocephalic, atraumatic, positive pallor. NECK: Supple, no JVD. LUNGS: Bilateral rhonchi, bilateral equal expansion, no rales appreciated. CARDIAC: S1 and S2, irregularly irregular, no murmur, no rub. ABDOMEN: Obese, distended, soft, nontender, bowel sounds present. EXTREMITIES: Trace lower extremity edema. INTAKE AND OUTPUT: Not charted. LABORATORY DATA: WBC 6.6, hemoglobin 10.9, hematocrit 36, platelets 204. Sodium 134, potassium 4.7, chloride 98, CO2 of 27, BUN 19, creatinine 3.4, glucose 100, calcium 8.9, phosphorus 4.8, magnesium 1.9, AST 54, ALT 30. ABG; pH 7.15, pCO2 75, pO2 64. IMAGING STUDIES: CT of the head showed no acute intracranial pathology. CURRENT MEDICATIONS Ativan 0.5 every 6 hours p.r.n., last dose given on 01/16/2018 at 02:00 p.m., DuoNeb, Feosol, folic acid, insulin, Lipitor, Lopressor 12.5 every 12 hours, not given this morning, Motrin, Neurontin, ProAmatine 10 t.i.d., last dose given yesterday at 06:00 p.m., Renagel, Singulair, Tylenol, Xanax, D50 given this morning. ASSESSMENT: 1. Coronary artery disease, congestive heart failure, diastolic dysfunction, preserved left ventricular function, aortic stenosis. 2. Chronic obstructive pulmonary disease, obstructive sleep apnea. 3. Non-insulin dependent diabetes mellitus. 4. Hypertension. 5. Endstage renal disease. 6. Legally blind. 7. Anemia of chronic kidney disease. 8. Recurrent profound hypotension. 9. Altered mental status, lethargy. PLAN: 1. Panculture. 2. Consider empiric antibiotics. 3. Respiratory support with BiPAP. 4. Monitor pCO2. 5. Consider inotropic support. 6. ? Dobutamine drip. Case discussed with nursing staff at length, case discussed with dialysis nurses. More than 35 minutes was spent in the care of this critically ill patient. Marlyn Snow MD
--- NOTE | 2018-01-17 22:11 | PN ---
DATE: 01/17/2018 SUBJECTIVE: The patient is a 73-year-old female. The patient was seen and examined at the bedside on 01/17/2018. The patient is lethargic, using BiPAP. There was rapid response and after that the patient was transferred to ICU, but I saw the patient on the floor. No fever. No chills. No hematuria or hematochezia. No headache or dizziness. The patient is a very poor historian. Remains lethargic, but arousable. PHYSICAL EXAMINATION VITAL SIGNS: Blood pressure 80/30, heart rate 82, respiratory rate 20, and temperature 98.6. HEENT: Head is normocephalic and atraumatic. Eyes PERRLA. Extraocular movements intact. Conjunctivae clear. Nose patent. Mucous membranes moist. NECK: Supple. No carotid bruit. No JVD or thyromegaly. CHEST: Bilaterally symmetrical. HEART: S1 and S2 are positive. LUNGS: Clear to auscultation. ABDOMEN: Soft. Bowel sounds present. No organomegaly. EXTREMITIES: Trace edema bilaterally. NEUROLOGIC: The patient is lethargic, but arousable. LABORATORY DATA: White blood cells 6.6, hemoglobin 10.9, hematocrit 36, and platelets 204. Sodium 134, potassium 4.7, BUN 90, creatinine 3.4, glucose 100. AST 54, ALT 30. Magnesium 1.9 and calcium 8.9. MEDICATIONS: Ativan, DuoNeb, Lipitor, Lopressor, Neurontin, Renagel, Tylenol, and Xanax. ASSESSMENT AND PLAN: Ms. Debby Olguin is a 73-year-old lady with coronary artery disease, congestive heart failure, diastolic dysfunction, aortic stenosis, renal insufficiency, on hemodialysis three times a week, chronic obstructive pulmonary disease, obstructive sleep apnea syndrome, non-insulin requiring diabetes mellitus type 2, not very well controlled, history of hypertension, but now she has hypotension, legally blind, morbid obesity, anemia of chronic kidney disease, profound hypotension, and altered mental status. PLAN: Nam cultures, make sure that the patient is not septic, started empiric antibiotics, respiratory support with BiPAP, consider dobutamine drip. Length of time discussion done with the patient and nursing staff as well as physician and resident student. Transferred the patient to the unit for more monitoring, repeat labs and we will follow up. Taylor House MD [facility] # [id number]
[2018-01-17] MEDS: MethylPREDNISolone 40 mg Vial IVP SCH (22:15)
[2018-01-17] MEDS: Latanoprost 2.5 ml Opht Soln OD SCH (22:34)
--- NOTE | 2018-01-18 00:45 | PN ---
DATE: 01/17/2018 PULMONARY PROGRESS NOTE REFERRING PHYSICIAN: Taylor House MD SUBJECTIVE: Early this morning events noted. Rapid Response was called, because she was unresponsive, apparently on and off while she was in BiPAP, transferred to intensive care unit, placed on noninvasive ventilation. ABG is being done. She is arousable, confused, does not follow much command. No hemoptysis. No hematemesis. No hematuria. Does have leg swelling. OBJECTIVE: GENERAL: Agitated, on noninvasive ventilation. VITAL SIGNS: Temperature is 98, heart rate is 74, respiratory rate is 22, blood pressure 91/43, pulse ox 94% on room air, is on ventilation. HEENT: Moist mucous membranes. Crowded airway. Mallampati score is 4. NECK: Supple. No JVD. LUNGS: Have a poor airflow with wheezing. HEART: S1 and S2. ABDOMEN: Soft, nontender, nondistended. EXTREMITIES: Have edema of upper and lower extremities. NEUROLOGICAL: Awake, alert, nonverbal, but confused. MEDICATIONS: She is on Aranesp 60 mcg weekly; lorazepam 0.5 mg every 6 hours p.r.n., which is placed on hold; Zithromax 250 mg daily; DuoNeb 4 times daily; ferrous sulfate 325 mg daily; folic acid 1 mg daily; insulin coverage, Levemir 10 units subcutaneously a.c.b. at bedtime; Lipitor 20 mg daily; metoprolol tartrate 12.5 mg twice a day; Motrin 4 mg every 6 hours p.r.n.; gabapentin 100 mg daily; midodrine 10 mg 3 times a day; Renagel 1600 mg p.o. with meals; Singulair 10 mg at bedtime; Solu-Medrol 40 mg every 12 hours; Tylenol p.r.n. basis; Xanax 0.25 mg twice a day p.r.n. LABORATORY DATA: Shows hemoglobin 10.9, hematocrit 36.4, WBC is 6.6, platelet count is 204. ABG shows pH 7.28, pCO2 of 51, O2 of 100. This is on noninvasive ventilation. At the time of rapid response, her pH was 7.12, pCO2 of 80, and pO2 was 67. Chemistry shows sodium 134, potassium 4.7, chloride 98, bicarbonate 27, BUN 19, creatinine 3.4, glucose 100, calcium 8.9. Phosphorus 4.8, magnesium 1.9. AST 54, ALT 30, alk phos is 271. Albumin is 3.4. She has a CAT scan of the head done with a rapid response; shows no acute intracranial hemorrhage, mild chronic periventricular white matter ischemic changes. IMPRESSION AND PLAN: Respiratory failure with acute mental status changes with CO2 retention and hypoxemia. Has a hypoventilation syndrome and probably have a sleep apnea syndrome and noncompliant with her bilevel positive airway pressure; renal failure, dialysis dependent; history of pulmonary retention; cardiac diastolic dysfunction; post dialysis hypotension. Case discussed with welt rander, Dr. Rosario. Also, spoke to nursing staff. Spoke to respiratory therapist. Continue noninvasive ventilation for now. Discontinue any sedatives. Keep head elevated at 45 degrees. May start daytime stimulant. Gastric prophylaxis. Deep venous thrombosis prophylaxis. Follow up ABG, chest x-ray, CBC in the morning. Critical care time more than 35 minutes. Thank you and we will follow with you. Joss Arisa MD
[2018-01-18] MEDS: Brimonidine 0.15% 50 DROP/5 ML BOTTLE OD SCH ×2 (05:32→22:05)
[2018-01-18 05:49] LABS: HEMOGLOBIN 12.5 g/dL (12.0-16.0); MEAN CELL VOLUME 117.7 fl (80.0-105.0); MEAN CORPUSCULAR HEMOGLOBIN 35.6 pg (25.0-35.0); MEAN CORPUSCULAR HGB CONC 30.3 g/dl (31.0-37.0); MEAN PLATELET VOLUME 10.5 fl (7.0-11.0); RBC 3.51 10^6/uL (3.5-6.1); RED CELL DISTRIBUTION WIDTH 15.9 % (11.5-14.5); WHITE BLOOD COUNT 6.2 10^3/uL (4.5-11.0)
[2018-01-18 06:11] LABS: ARTERIAL BLOOD GAS HCO3 21.4 mmol/L (21-28); ARTERIAL BLOOD GAS HEMOGLOBIN 12.5 g/dL (11.7-17.4); ARTERIAL BLOOD GAS O2 CAPACITY 17.3 mL/dl (16-24); ARTERIAL BLOOD GAS O2 CONTENT 16.7 ML/dl (15-23); ARTERIAL BLOOD GAS O2 SAT 96.6 % (95-98); ARTERIAL BLOOD GAS PCO2 50 mm/Hg (35-45); ARTERIAL BLOOD GAS PH 7.24 (7.35-7.45); ARTERIAL BLOOD GAS TCO2 22.9 mmol.L (22-28)
[2018-01-18 06:19] LABS: ALB/GLOB RATIO 0.8 (1.1-1.8); ALBUMIN 3.3 g/dL (3.0-4.8)
[2018-01-18] MEDS: Albuterol-Ipratrop 3 mg / 0.5 (3 ml) UD IH SCH ×4 (07:22→20:43)
[2018-01-18] MEDS: Insulin Detemir 100 units/ml Vial (Levemir) SC SCH ×2 (07:30→22:06)
[2018-01-18] MEDS: Insulin Reg-LOW-Coverage SC SCH ×4 (08:00→22:06)
[2018-01-18] MEDS ORDERED: Armodafinil 250 mg Tab PO SCH (10:00)
[2018-01-18] MEDS ORDERED: Insulin Regular 1 UNITS/0.01 ML ML IV STA (10:30)
[2018-01-18] MEDS ORDERED: Dextrose 50% SYRINGE Inj (50 ml) IVP ONE (10:31)
[2018-01-18] MEDS: MethylPREDNISolone 40 mg Vial IVP SCH ×2 (11:27→22:07)
--- NOTE | 2018-01-18 14:19 | PN ---
DATE: 01/18/2018 REASON FOR CONSULTATION AND FOLLOWUP: Cardiac evaluation, CO2 narcosis, moved to ICU. SUBJECTIVE: Event noted since saw last time; CO2 narcosis, ABG went up to pCO2 of 80 and repeat ABG was 75. The patient keeps on removing CPAP. OBJECTIVE: GENERAL: Now the patient is in the ICU, much awake and alert, waking up, responding to the verbal stimuli. VITAL SIGNS: Temperature afebrile, heart rate 82, blood pressure 101/41. HEENT: PERRLA. Extraocular muscles intact. NECK: Supple. No carotid bruits or thyromegaly. CHEST: Clear to auscultation. HEART: S1 and S2 regular. ABDOMEN: Soft. EXTREMITIES: Clubbing, cyanosis negative. LABORATORY DATA: Blood workup as follows: WBC 6.2, hemoglobin 12.5, hematocrit 41.3, platelet count 211. Chemistry shows sodium 134, potassium 5.7, chloride 99, carbon dioxide 19, anion gap of 21, BUN 23, creatinine 4. IMPRESSION AND PLAN: A 73-year-old female, obese, with past medical history of end-stage renal disease, history of coronary artery disease, admitted with altered mental status. Yesterday, the patient altered mental status secondary to carbon dioxide narcosis, moved to intensive care unit. The patient has history of coronary artery disease, history of cardiomyopathy significantly improved, but at one point the patient was on LifeVest, was removed. Repeat echocardiogram shows preserved left ventricular function. The patient keeps on removing continuous positive airway pressure, needs aggressive pulmonary treatment and close followup. Also, the patient's family discussed do not resuscitate. Overall, the patient's condition is critical, penitentiary prognosis is guarded. No further cardiac workup is planned or warranted. status is stable. Thank you Dr. Ferrer for providing us the opportunity in taking care of the patient, Sharif Guardado. Interim continue atorvastatin, aspirin, metoprolol. If the patient keeps on removing continuous positive airway pressure, maybe needs restraints. We will discuss with you. Joss Bah MD
[2018-01-18] MEDS: Saliva Substitute 44.3 ML PO SCH (14:48)
[2018-01-18] MEDS: Vitamins A & D Oint UD Foilpak TOP SCH ×2 (14:48→20:00)
[2018-01-18] MEDS: Azithromycin 250 MG in Sodium Chloride 0.9% 250 ML IVPB SCH (16:11)
[2018-01-18 17:39] LABS: CALCIUM 8.8 mg/dL (8.4-10.5)
--- NOTE | 2018-01-18 17:43 | CP.CCUPN ---
<Young Sommers - Last Filed: 01/18/18 17:34> CCU Subjective - Physician Review Subjective (Free Text): Young Sommers, PGY1 ICU Progress Note for Dr. Rosario Patient was seen and examined at bedside this morning. Patient was seen off her CPAP. She is AAOx3. Family was present at bedside and available for interpretation. She still complained of dry mouth. Denied sob, cp, abdominal pain, fevers, chills, lower extremity swelling and pain. Overnight, patient was on CPAP. A full 12 point ROS was conducted and unremarkable except as stated above. CCU Objective - Vital Signs / Intake & Output Intake and Output (Last 8hrs): Intake & Output 01/18/18 01/18/18 01/18/18 06:59 14:59 22:59 Intake Total 50 Output Total 0 Balance 50 Intake: IV 50 Left Hand 50 Output: Urine 0 Urine, Voided 0 - Physical Exam Head: Positive for: Atraumatic, Normocephalic Pupils: Positive for: PERRL Extroacular Muscles: Positive for: EOMI Conjunctiva: Positive for: Normal Mouth: Positive for: Dry Respiratory/Chest: Positive for: Clear to Auscultation, Good Air Exchange. Negative for: Respiratory Distress, Accessory Muscle Use, Rales, Retracting, Rhonchi Cardiovascular: Positive for: Regular Rate and Rhythm, Normal S1, S2. Negative for: Murmurs Abdomen: Negative for: Tenderness, Distention, Peritoneal Signs, Rebound Back: Positive for: Normal Inspection Upper Extremity: Positive for: Edema (Diffuse swelling of the upper extremity), Other (right AV graft ). Negative for: Cyanosis Lower Extremity: Negative for: Edema Neurological: Positive for: GCS=15, CN II-XII Intact, Speech Normal Skin: Positive for: Warm, Dry, Normal Color. Negative for: Rashes Psychiatric: Positive for: Alert, Oriented x 3 - Medications Active Medications: Active Medications Generic Name Dose Route Start Last Admin Trade Name Freq PRN Reason Stop Dose Admin Acetaminophen 650 mg 01/12/18 22:07 01/14/18 17:30 Tylenol 325mg Tab PO 650 mg Q4H PRN Administration Fever >100.5 F Albuterol/Ipratropium 3 ml 01/13/18 07:30 01/18/18 16:38 Duoneb 3 Mg/0.5 Mg (3 Ml) Ud IH 3 ml QIDRESP [facility] Administration Alprazolam 0.25 mg 01/16/18 12:02 Xanax PO 01/23/18 18:01 BID PRN Agitation Protocol Armodafinil 250 mg 01/18/18 10:00 01/18/18 15:00 Nuvigil 250 Mg Tab PO Not Given DAILY [facility] Atorvastatin Calcium 20 mg 01/13/18 17:00 01/17/18 19:37 Lipitor PO Not Given DIN [facility] Brimonidine Tartrate 0 drop 01/13/18 06:00 01/18/18 05:32 Alphagan P 0.15% Opht OD 1 drop Q8 [facility] Administration Darbepoetin Jovi 60 mcg 01/16/18 10:00 01/16/18 09:27 Aranesp IVP 60 mcg Fr@1000 [facility] Administration Ferrous Sulfate 324 mg 01/13/18 10:00 01/18/18 14:57 Feosol PO Not Given DAILY [facility] Folic Acid 1 mg 01/13/18 10:00 01/18/18 14:57 Folic Acid PO Not Given DAILY [facility] Folic Acid 1 mg 01/18/18 14:30 01/18/18 16:11 Folic Acid IVP 1 mg DAILY [facility] Administration Gabapentin 100 mg 01/13/18 10:00 01/18/18 14:59 Neurontin PO Not Given DAILY [facility] Protocol Heparin Sodium (Porcine) 5,000 units 01/17/18 22:00 01/18/18 11:26 Heparin SC 5,000 units Q12 [facility] Administration Protocol Azithromycin 250 mg/ Sodium 250 mls @ 167 mls/hr 01/17/18 16:00 01/18/18 16:11 Chloride IVPB 167 mls/hr 1600 [facility] Administration Protocol Dextrose 1,000 mls @ 100 mls/hr 01/18/18 14:30 01/18/18 14:49 Dextrose 5% In Water 1000 Ml IV 100 mls/hr .Q10H [facility] Administration Ibuprofen 400 mg 01/15/18 12:57 Motrin Tab PO Q6H PRN Pain, moderate (4-7) Insulin Detemir 10 unit 01/13/18 10:00 01/18/18 07:30 Levemir SC Not Given ACBHS [facility] Insulin Human Regular 0 units 01/13/18 07:30 01/18/18 16:45 Humulin R Low SC 2 unit ACHS [facility] Administration Protocol Latanoprost 0 ml 01/13/18 22:00 01/17/18 22:34 Xalatan Opht OD 2.5 ml HS [facility] Administration Lorazepam 0.5 mg 01/18/18 16:06 Ativan IVP Q6H PRN Anxiety Protocol Methylprednisolone 40 mg 01/17/18 22:00 01/18/18 11:27 Solu-Medrol IVP 40 mg Q12 [facility] Administration Metoprolol Tartrate 12.5 mg 01/13/18 10:00 01/18/18 14:59 Lopressor PO Not Given Q12 [facility] Midodrine 10 mg 01/13/18 10:00 01/18/18 15:00 Proamatine PO Not Given TID [facility] Montelukast Sodium 10 mg 01/12/18 22:30 01/17/18 22:15 Singulair PO Not Given HS [facility] Pantoprazole Sodium 40 mg 01/18/18 10:00 01/18/18 11:27 Protonix Inj IVP 40 mg DAILY [facility] Administration Saliva Substitute 0 ml 01/18/18 18:00 01/18/18 14:48 Saliva Substitute PO 1 ml Q6 [facility] Administration Sevelamer HCl 1,600 mg 01/13/18 08:00 01/18/18 12:00 Renagel PO Not Given WM [facility] Vitamin A 1 ea 01/18/18 16:00 01/18/18 14:48 Vitamin A & D Oint Ud Foilpak TOP 1 ea Q4 [facility] Administration - Patient Studies Lab Studies: Lab Studies 01/18/18 01/18/18 01/18/18 Range/Units 16:11 11:45 07:20 WBC (4.5-11.0) 10^3/uL RBC (3.5-6.1) 10^6/uL Hgb (12.0-16.0) g/dL Hct (36.0-48.0) % MCV (80.0-105.0) fl MCH (25.0-35.0) pg MCHC (31.0-37.0) g/dl RDW (11.5-14.5) % Plt Count (120.0-450.0) 10^3/uL MPV (7.0-11.0) fl pCO2 (35-45) mm/Hg pO2 (80-100) mm/Hg HCO3 (21-28) mmol/L ABG pH (7.35-7.45) ABG Total CO2 (22-28) mmol.L ABG O2 Saturation (95-98) % ABG O2 Content (15-23) ML/dl ABG Base Excess (-2.0-3.0) mmol/L ABG Hemoglobin (11.7-17.4) g/dL ABG Carboxyhemoglobin (0.5-1.5) % POC ABG HHb (Measured) (0-5) % ABG Methemoglobin (0.0-3.0) % ABG O2 Capacity (16-24) mL/dl Hgb O2 Saturation (95.0-98.0) % FiO2 % Sodium (132-148) mmol/L Potassium (3.6-5.0) mmol/L Chloride (98-107) mmol/L Carbon Dioxide (21-33) mmol/L Anion Gap (10-20) BUN (7-21) mg/dL Creatinine (0.7-1.2) mg/dl Est GFR ( Amer) Est GFR (Non-Af Amer) POC Glucose (mg/dL) 221 H 234 H 150 H (65-110) mg/dL Random Glucose (70-110) mg/dL Calcium (8.4-10.5) mg/dL Phosphorus (2.5-4.5) mg/dL Magnesium (1.7-2.2) mg/dL Total Bilirubin (0.2-1.3) mg/dL AST (14-36) U/L ALT (7-56) U/L Alkaline Phosphatase (38-126) U/L Total Protein (5.8-8.3) g/dL Albumin (3.0-4.8) g/dL Globulin gm/dL Albumin/Globulin Ratio (1.1-1.8) 01/18/18 01/18/18 01/18/18 Range/Units 06:00 05:00 05:00 WBC 6.2 (4.5-11.0) 10^3/uL RBC 3.51 (3.5-6.1) 10^6/uL Hgb 12.5 (12.0-16.0) g/dL Hct 41.3 (36.0-48.0) % MCV 117.7 H (80.0-105.0) fl MCH 35.6 H (25.0-35.0) pg MCHC 30.3 L (31.0-37.0) g/dl RDW 15.9 H (11.5-14.5) % Plt Count 211 (120.0-450.0) 10^3/uL MPV 10.5 (7.0-11.0) fl pCO2 50 H (35-45) mm/Hg pO2 81.0 (80-100) mm/Hg HCO3 21.4 (21-28) mmol/L ABG pH 7.24 L (7.35-7.45) ABG Total CO2 22.9 (22-28) mmol.L ABG O2 Saturation 96.6 (95-98) % ABG O2 Content 16.7 (15-23) ML/dl ABG Base Excess -6.2 L (-2.0-3.0) mmol/L ABG Hemoglobin 12.5 (11.7-17.4) g/dL ABG Carboxyhemoglobin 1.5 (0.5-1.5) % POC ABG HHb (Measured) 3.3 (0-5) % ABG Methemoglobin 0.8 (0.0-3.0) % ABG O2 Capacity 17.3 (16-24) mL/dl Hgb O2 Saturation 94.4 L (95.0-98.0) % FiO2 40.0 % Sodium 134 (132-148) mmol/L Potassium 5.7 H* D (3.6-5.0) mmol/L Chloride 99 (98-107) mmol/L Carbon Dioxide 19 L (21-33) mmol/L Anion Gap 21 H (10-20) BUN 23 H (7-21) mg/dL Creatinine 4.0 H (0.7-1.2) mg/dl Est GFR ( Amer) 13 Est GFR (Non-Af Amer) 11 POC Glucose (mg/dL) (65-110) mg/dL Random Glucose 132 H (70-110) mg/dL Calcium 9.0 (8.4-10.5) mg/dL Phosphorus 5.2 H (2.5-4.5) mg/dL Magnesium 2.0 (1.7-2.2) mg/dL Total Bilirubin 1.2 (0.2-1.3) mg/dL AST 49 H (14-36) U/L ALT 19 (7-56) U/L Alkaline Phosphatase 273 H (38-126) U/L Total Protein 7.7 (5.8-8.3) g/dL Albumin 3.3 (3.0-4.8) g/dL Globulin 4.3 gm/dL Albumin/Globulin Ratio 0.8 L (1.1-1.8) 01/17/18 Range/Units 21:42 WBC (4.5-11.0) 10^3/uL RBC (3.5-6.1) 10^6/uL Hgb (12.0-16.0) g/dL Hct (36.0-48.0) % MCV (80.0-105.0) fl MCH (25.0-35.0) pg MCHC (31.0-37.0) g/dl RDW (11.5-14.5) % Plt Count (120.0-450.0) 10^3/uL MPV (7.0-11.0) fl pCO2 (35-45) mm/Hg pO2 (80-100) mm/Hg HCO3 (21-28) mmol/L ABG pH (7.35-7.45) ABG Total CO2 (22-28) mmol.L ABG O2 Saturation (95-98) % ABG O2 Content (15-23) ML/dl ABG Base Excess (-2.0-3.0) mmol/L ABG Hemoglobin (11.7-17.4) g/dL ABG Carboxyhemoglobin (0.5-1.5) % POC ABG HHb (Measured) (0-5) % ABG Methemoglobin (0.0-3.0) % ABG O2 Capacity (16-24) mL/dl Hgb O2 Saturation (95.0-98.0) % FiO2 % Sodium (132-148) mmol/L Potassium (3.6-5.0) mmol/L Chloride (98-107) mmol/L Carbon Dioxide (21-33) mmol/L Anion Gap (10-20) BUN (7-21) mg/dL Creatinine (0.7-1.2) mg/dl Est GFR ( Amer) Est GFR (Non-Af Amer) POC Glucose (mg/dL) 79 (65-110) mg/dL Random Glucose (70-110) mg/dL Calcium (8.4-10.5) mg/dL Phosphorus (2.5-4.5) mg/dL Magnesium (1.7-2.2) mg/dL Total Bilirubin (0.2-1.3) mg/dL AST (14-36) U/L ALT (7-56) U/L Alkaline Phosphatase (38-126) U/L Total Protein (5.8-8.3) g/dL Albumin (3.0-4.8) g/dL Globulin gm/dL Albumin/Globulin Ratio (1.1-1.8) Laboratory Results - last 24 hr 01/17/18 01/18/18 01/18/18 21:42 05:00 05:00 WBC 6.2 RBC 3.51 Hgb 12.5 Hct 41.3 MCV 117.7 H MCH 35.6 H MCHC 30.3 L RDW 15.9 H Plt Count 211 MPV 10.5 pCO2 pO2 HCO3 ABG pH ABG Total CO2 ABG O2 Saturation ABG O2 Content ABG Base Excess ABG Hemoglobin ABG Carboxyhemoglobin POC ABG HHb (Measured) ABG Methemoglobin ABG O2 Capacity Hgb O2 Saturation FiO2 Sodium 134 Potassium 5.7 H* D Chloride 99 Carbon Dioxide 19 L Anion Gap 21 H BUN 23 H Creatinine 4.0 H Est GFR ( Amer) 13 Est GFR (Non-Af Amer) 11 POC Glucose (mg/dL) 79 Random Glucose 132 H Calcium 9.0 Phosphorus 5.2 H Magnesium 2.0 Total Bilirubin 1.2 AST 49 H ALT 19 Alkaline Phosphatase 273 H Total Protein 7.7 Albumin 3.3 Globulin 4.3 Albumin/Globulin Ratio 0.8 L 01/18/18 01/18/18 01/18/18 06:00 07:20 11:45 WBC RBC Hgb Hct MCV MCH MCHC RDW Plt Count MPV pCO2 50 H pO2 81.0 HCO3 21.4 ABG pH 7.24 L ABG Total CO2 22.9 ABG O2 Saturation 96.6 ABG O2 Content 16.7 ABG Base Excess -6.2 L ABG Hemoglobin 12.5 ABG Carboxyhemoglobin 1.5 POC ABG HHb (Measured) 3.3 ABG Methemoglobin 0.8 ABG O2 Capacity 17.3 Hgb O2 Saturation 94.4 L FiO2 40.0 Sodium Potassium Chloride Carbon Dioxide Anion Gap BUN Creatinine Est GFR ( Amer) Est GFR (Non-Af Amer) POC Glucose (mg/dL) 150 H 234 H Random Glucose Calcium Phosphorus Magnesium Total Bilirubin AST ALT Alkaline Phosphatase Total Protein Albumin Globulin Albumin/Globulin Ratio 01/18/18 16:11 WBC RBC Hgb Hct MCV MCH MCHC RDW Plt Count MPV pCO2 pO2 HCO3 ABG pH ABG Total CO2 ABG O2 Saturation ABG O2 Content ABG Base Excess ABG Hemoglobin ABG Carboxyhemoglobin POC ABG HHb (Measured) ABG Methemoglobin ABG O2 Capacity Hgb O2 Saturation FiO2 Sodium Potassium Chloride Carbon Dioxide Anion Gap BUN Creatinine Est GFR ( Amer) Est GFR (Non-Af Amer) POC Glucose (mg/dL) 221 H Random Glucose Calcium Phosphorus Magnesium Total Bilirubin AST ALT Alkaline Phosphatase Total Protein Albumin Globulin Albumin/Globulin Ratio Fingerstick Blood Sugar Results: 212 Review of Systems - Review of Systems All systems: reviewed and no additional remarkable complaints except (as per HPI.) Critical Care Progress Note - Extremities/Vascular Does the Patient have a Central Venous Catheter?: No Does the Patient need a Central Venous Catheter?: No Does the Patient have a Flores Catheter?: No Does the Patient need a Flores Catheter?: No - Prophylaxis GI Prophylaxis GI: PPI - Prophylaxis DVT Prophylaxis DVT: Heparin SQ - Nutrition Nutrition: Nutrition Category Date Time Status NPO Diet [DIET] Diets 01/18/18 Breakfast Ordered Assessment/Plan - Assessment and Plan (Free Text) Assessment: Patient is a 73 year old F with PMHx of ESRD on hemodialysis (M/W/F), DM, HTN, CAD with stent placement (12/2014), and anemia, who presented to the ED from a dialysis center for evaluation of hypotension and dizziness. During hospital course, EMPLOYEE RELATIONS REPRESENTATIVE was called for hypotension and lethargy. Patient was noted to be in hypercapnic respiratory failure. ICU was consulted for evaluation. Plan: Neuro: - AAOx3; mental status improved - Episodes of agitation; ativan prn - Maintain normothermia Cardio: - BP is now 101/41. Will hold blood pressure medications when SBP < 100. - c/w IVF - Hypotensive during EMPLOYEE RELATIONS REPRESENTATIVE - c/w home meds once patient tolerates PO - Hx of HTN, CAD (stent placement), CHF-pEF, Aortic stenosis - Echo (12/10/17): EF 50%. Evidence of pulmonary hypertension. Pulm: - Admitted for Hypercapnic Respiratory Failure 2/2 COPD Exacerbation - c/w azithromycin and methylprednisolone - c/w duonebs treatment - c/w CPAP as needed - Hx of COPD; patient has history of non-compliance GI: - Patient is currently not passing her swallow eval. She is not taking her PO meds appropriately. Will hold for now. - GI ppx with protonix - NPO Heme: - H/H stable - DVT ppx with heparin sc Renal: - Hyperkalemia; K was 5.7. Given calcium gluconate, D50, insulin 10units. Follow up afternoon labs. - BUN/Cr is 23/4.0 - Patient is on HD (M/W/F) Endo: - Hx of DM - ISS (low) - Accuchecks Dispo: Patient will be monitored in the ICU. Case was discussed and reviewed with Attending Physician, Dr. Rosario <Viviana Rosario - Last Filed: 01/18/18 19:01> CCU Objective - Vital Signs / Intake & Output Intake and Output (Last 8hrs): Intake & Output 01/18/18 01/18/18 01/18/18 06:59 14:59 22:59 Intake Total 50 Output Total 0 Balance 50 Intake: IV 50 Left Hand 50 Output: Urine 0 Urine, Voided 0 - Medications Active Medications: Active Medications Generic Name Dose Route Start Last Admin Trade Name Freq PRN Reason Stop Dose Admin Acetaminophen 650 mg 01/12/18 22:07 01/14/18 17:30 Tylenol 325mg Tab PO 650 mg Q4H PRN Administration Fever >100.5 F Albuterol/Ipratropium 3 ml 01/13/18 07:30 01/18/18 16:38 Duoneb 3 Mg/0.5 Mg (3 Ml) Ud IH 3 ml QIDRESP [facility] Administration Alprazolam 0.25 mg 01/16/18 12:02 Xanax PO 01/23/18 18:01 BID PRN Agitation Protocol Armodafinil 250 mg 01/18/18 10:00 01/18/18 15:00 Nuvigil 250 Mg Tab PO Not Given DAILY [facility] Atorvastatin Calcium 20 mg 01/13/18 17:00 01/17/18 19:37 Lipitor PO Not Given DIN [facility] Brimonidine Tartrate 0 drop 01/13/18 06:00 01/18/18 05:32 Alphagan P 0.15% Opht OD 1 drop Q8 [facility] Administration Darbepoetin Jovi 60 mcg 01/16/18 10:00 01/16/18 09:27 Aranesp IVP 60 mcg Fr@1000 [facility] Administration Ferrous Sulfate 324 mg 01/13/18 10:00 01/18/18 14:57 Feosol PO Not Given DAILY [facility] Folic Acid 1 mg 01/13/18 10:00 01/18/18 14:57 Folic Acid PO Not Given DAILY [facility] Folic Acid 1 mg 01/18/18 14:30 01/18/18 16:11 Folic Acid IVP 1 mg DAILY [facility] Administration Gabapentin 100 mg 01/13/18 10:00 01/18/18 14:59 Neurontin PO Not Given DAILY [facility] Protocol Heparin Sodium (Porcine) 5,000 units 01/17/18 22:00 01/18/18 11:26 Heparin SC 5,000 units Q12 [facility] Administration Protocol Azithromycin 250 mg/ Sodium 250 mls @ 167 mls/hr 01/17/18 16:00 01/18/18 16:11 Chloride IVPB 167 mls/hr 1600 [facility] Administration Protocol Dextrose 1,000 mls @ 100 mls/hr 01/18/18 14:30 01/18/18 14:49 Dextrose 5% In Water 1000 Ml IV 100 mls/hr .Q10H [facility] Administration Ibuprofen 400 mg 01/15/18 12:57 Motrin Tab PO Q6H PRN Pain, moderate (4-7) Insulin Detemir 10 unit 01/13/18 10:00 01/18/18 07:30 Levemir SC Not Given ACBHS [facility] Insulin Human Regular 0 units 01/13/18 07:30 01/18/18 16:45 Humulin R Low SC 2 unit ACHS [facility] Administration Protocol Latanoprost 0 ml 01/13/18 22:00 01/17/18 22:34 Xalatan Opht OD 2.5 ml HS [facility] Administration Lorazepam 0.5 mg 01/18/18 16:06 Ativan IVP Q6H PRN Anxiety Protocol Methylprednisolone 40 mg 01/17/18 22:00 01/18/18 11:27 Solu-Medrol IVP 40 mg Q12 [facility] Administration Metoprolol Tartrate 12.5 mg 01/13/18 10:00 01/18/18 14:59 Lopressor PO Not Given Q12 [facility] Midodrine 10 mg 01/13/18 10:00 01/18/18 15:00 Proamatine PO Not Given TID [facility] Montelukast Sodium 10 mg 01/12/18 22:30 01/17/18 22:15 Singulair PO Not Given HS [facility] Pantoprazole Sodium 40 mg 01/18/18 10:00 01/18/18 11:27 Protonix Inj IVP 40 mg DAILY [facility] Administration Saliva Substitute 0 ml 01/18/18 18:00 01/18/18 14:48 Saliva Substitute PO 1 ml Q6 [facility] Administration Sevelamer HCl 1,600 mg 01/13/18 08:00 01/18/18 12:00 Renagel PO Not Given WM [facility] Vitamin A 1 ea 01/18/18 16:00 01/18/18 14:48 Vitamin A & D Oint Ud Foilpak TOP 1 ea Q4 [facility] Administration - Patient Studies Lab Studies: Lab Studies 01/18/18 01/18/18 01/18/18 Range/Units 17:15 16:11 11:45 WBC (4.5-11.0) 10^3/uL RBC (3.5-6.1) 10^6/uL Hgb (12.0-16.0) g/dL Hct (36.0-48.0) % MCV (80.0-105.0) fl MCH (25.0-35.0) pg MCHC (31.0-37.0) g/dl RDW (11.5-14.5) % Plt Count (120.0-450.0) 10^3/uL MPV (7.0-11.0) fl pCO2 (35-45) mm/Hg pO2 (80-100) mm/Hg HCO3 (21-28) mmol/L ABG pH (7.35-7.45) ABG Total CO2 (22-28) mmol.L ABG O2 Saturation (95-98) % ABG O2 Content (15-23) ML/dl ABG Base Excess (-2.0-3.0) mmol/L ABG Hemoglobin (11.7-17.4) g/dL ABG Carboxyhemoglobin (0.5-1.5) % POC ABG HHb (Measured) (0-5) % ABG Methemoglobin (0.0-3.0) % ABG O2 Capacity (16-24) mL/dl Hgb O2 Saturation (95.0-98.0) % FiO2 % Sodium 133 (132-148) mmol/L Potassium 5.3 H (3.6-5.0) mmol/L Chloride 98 (98-107) mmol/L Carbon Dioxide 22 (21-33) mmol/L Anion Gap 18 (10-20) BUN 29 H (7-21) mg/dL Creatinine 4.5 H (0.7-1.2) mg/dl Est GFR ( Amer) 12 Est GFR (Non-Af Amer) 10 POC Glucose (mg/dL) 221 H 234 H (65-110) mg/dL Random Glucose 211 H (70-110) mg/dL Calcium 8.8 (8.4-10.5) mg/dL Phosphorus (2.5-4.5) mg/dL Magnesium (1.7-2.2) mg/dL Total Bilirubin (0.2-1.3) mg/dL AST (14-36) U/L ALT (7-56) U/L Alkaline Phosphatase (38-126) U/L Total Protein (5.8-8.3) g/dL Albumin (3.0-4.8) g/dL Globulin gm/dL Albumin/Globulin Ratio (1.1-1.8) 01/18/18 01/18/18 01/18/18 Range/Units 07:20 06:00 05:00 WBC (4.5-11.0) 10^3/uL RBC (3.5-6.1) 10^6/uL Hgb (12.0-16.0) g/dL Hct (36.0-48.0) % MCV (80.0-105.0) fl MCH (25.0-35.0) pg MCHC (31.0-37.0) g/dl RDW (11.5-14.5) % Plt Count (120.0-450.0) 10^3/uL MPV (7.0-11.0) fl pCO2 50 H (35-45) mm/Hg pO2 81.0 (80-100) mm/Hg HCO3 21.4 (21-28) mmol/L ABG pH 7.24 L (7.35-7.45) ABG Total CO2 22.9 (22-28) mmol.L ABG O2 Saturation 96.6 (95-98) % ABG O2 Content 16.7 (15-23) ML/dl ABG Base Excess -6.2 L (-2.0-3.0) mmol/L ABG Hemoglobin 12.5 (11.7-17.4) g/dL ABG Carboxyhemoglobin 1.5 (0.5-1.5) % POC ABG HHb (Measured) 3.3 (0-5) % ABG Methemoglobin 0.8 (0.0-3.0) % ABG O2 Capacity 17.3 (16-24) mL/dl Hgb O2 Saturation 94.4 L (95.0-98.0) % FiO2 40.0 % Sodium 134 (132-148) mmol/L Potassium 5.7 H* D (3.6-5.0) mmol/L Chloride 99 (98-107) mmol/L Carbon Dioxide 19 L (21-33) mmol/L Anion Gap 21 H (10-20) BUN 23 H (7-21) mg/dL Creatinine 4.0 H (0.7-1.2) mg/dl Est GFR ( Amer) 13 Est GFR (Non-Af Amer) 11 POC Glucose (mg/dL) 150 H (65-110) mg/dL Random Glucose 132 H (70-110) mg/dL Calcium 9.0 (8.4-10.5) mg/dL Phosphorus 5.2 H (2.5-4.5) mg/dL Magnesium 2.0 (1.7-2.2) mg/dL Total Bilirubin 1.2 (0.2-1.3) mg/dL AST 49 H (14-36) U/L ALT 19 (7-56) U/L Alkaline Phosphatase 273 H (38-126) U/L Total Protein 7.7 (5.8-8.3) g/dL Albumin 3.3 (3.0-4.8) g/dL Globulin 4.3 gm/dL Albumin/Globulin Ratio 0.8 L (1.1-1.8) 01/18/18 01/17/18 Range/Units 05:00 21:42 WBC 6.2 (4.5-11.0) 10^3/uL RBC 3.51 (3.5-6.1) 10^6/uL Hgb 12.5 (12.0-16.0) g/dL Hct 41.3 (36.0-48.0) % MCV 117.7 H (80.0-105.0) fl MCH 35.6 H (25.0-35.0) pg MCHC 30.3 L (31.0-37.0) g/dl RDW 15.9 H (11.5-14.5) % Plt Count 211 (120.0-450.0) 10^3/uL MPV 10.5 (7.0-11.0) fl pCO2 (35-45) mm/Hg pO2 (80-100) mm/Hg HCO3 (21-28) mmol/L ABG pH (7.35-7.45) ABG Total CO2 (22-28) mmol.L ABG O2 Saturation (95-98) % ABG O2 Content (15-23) ML/dl ABG Base Excess (-2.0-3.0) mmol/L ABG Hemoglobin (11.7-17.4) g/dL ABG Carboxyhemoglobin (0.5-1.5) % POC ABG HHb (Measured) (0-5) % ABG Methemoglobin (0.0-3.0) % ABG O2 Capacity (16-24) mL/dl Hgb O2 Saturation (95.0-98.0) % FiO2 % Sodium (132-148) mmol/L Potassium (3.6-5.0) mmol/L Chloride (98-107) mmol/L Carbon Dioxide (21-33) mmol/L Anion Gap (10-20) BUN (7-21) mg/dL Creatinine (0.7-1.2) mg/dl Est GFR ( Amer) Est GFR (Non-Af Amer) POC Glucose (mg/dL) 79 (65-110) mg/dL Random Glucose (70-110) mg/dL Calcium (8.4-10.5) mg/dL Phosphorus (2.5-4.5) mg/dL Magnesium (1.7-2.2) mg/dL Total Bilirubin (0.2-1.3) mg/dL AST (14-36) U/L ALT (7-56) U/L Alkaline Phosphatase (38-126) U/L Total Protein (5.8-8.3) g/dL Albumin (3.0-4.8) g/dL Globulin gm/dL Albumin/Globulin Ratio (1.1-1.8) Laboratory Results - last 24 hr 01/17/18 01/18/18 01/18/18 21:42 05:00 05:00 WBC 6.2 RBC 3.51 Hgb 12.5 Hct 41.3 MCV 117.7 H MCH 35.6 H MCHC 30.3 L RDW 15.9 H Plt Count 211 MPV 10.5 pCO2 pO2 HCO3 ABG pH ABG Total CO2 ABG O2 Saturation ABG O2 Content ABG Base Excess ABG Hemoglobin ABG Carboxyhemoglobin POC ABG HHb (Measured) ABG Methemoglobin ABG O2 Capacity Hgb O2 Saturation FiO2 Sodium 134 Potassium 5.7 H* D Chloride 99 Carbon Dioxide 19 L Anion Gap 21 H BUN 23 H Creatinine 4.0 H Est GFR ( Amer) 13 Est GFR (Non-Af Amer) 11 POC Glucose (mg/dL) 79 Random Glucose 132 H Calcium 9.0 Phosphorus 5.2 H Magnesium 2.0 Total Bilirubin 1.2 AST 49 H ALT 19 Alkaline Phosphatase 273 H Total Protein 7.7 Albumin 3.3 Globulin 4.3 Albumin/Globulin Ratio 0.8 L 01/18/18 01/18/18 01/18/18 06:00 07:20 11:45 WBC RBC Hgb Hct MCV MCH MCHC RDW Plt Count MPV pCO2 50 H pO2 81.0 HCO3 21.4 ABG pH 7.24 L ABG Total CO2 22.9 ABG O2 Saturation 96.6 ABG O2 Content 16.7 ABG Base Excess -6.2 L ABG Hemoglobin 12.5 ABG Carboxyhemoglobin 1.5 POC ABG HHb (Measured) 3.3 ABG Methemoglobin 0.8 ABG O2 Capacity 17.3 Hgb O2 Saturation 94.4 L FiO2 40.0 Sodium Potassium Chloride Carbon Dioxide Anion Gap BUN Creatinine Est GFR ( Amer) Est GFR (Non-Af Amer) POC Glucose (mg/dL) 150 H 234 H Random Glucose Calcium Phosphorus Magnesium Total Bilirubin AST ALT Alkaline Phosphatase Total Protein Albumin Globulin Albumin/Globulin Ratio 01/18/18 01/18/18 16:11 17:15 WBC RBC Hgb Hct MCV MCH MCHC RDW Plt Count MPV pCO2 pO2 HCO3 ABG pH ABG Total CO2 ABG O2 Saturation ABG O2 Content ABG Base Excess ABG Hemoglobin ABG Carboxyhemoglobin POC ABG HHb (Measured) ABG Methemoglobin ABG O2 Capacity Hgb O2 Saturation FiO2 Sodium 133 Potassium 5.3 H Chloride 98 Carbon Dioxide 22 Anion Gap 18 BUN 29 H Creatinine 4.5 H Est GFR ( Amer) 12 Est GFR (Non-Af Amer) 10 POC Glucose (mg/dL) 221 H Random Glucose 211 H Calcium 8.8 Phosphorus Magnesium Total Bilirubin AST ALT Alkaline Phosphatase Total Protein Albumin Globulin Albumin/Globulin Ratio Critical Care Progress Note - Nutrition Nutrition: Nutrition Category Date Time Status NPO Diet [DIET] Diets 01/18/18 Breakfast Ordered Addendum Addendum: 01/18/18 19:01 MICU ATTENDING ADDENDUM: Patient seen and examined. Case discussed in round with housestaff. Agree with note above with the following additions/exception: 73 f with PMHx of ESRD on HD MWF, DM, HTN, CAD with stent placement (12/2014), and anemia, who presented to the ED from a dialysis center for evaluation of hyp otension and dizziness. Brought to MICU 01/17 for resp acidosis despite bipap trial. Tolerated Bipap at night and much more alert this morning. ABG shows decrease in PCO2 however pH still 7.24. Her baseline CO2 is higher so she can try to stay off Bipap all day and use it at night. . Cont steroids and duonebs. Pulm on board as well. She has chronic cardiac issues including and CHF for which cardio is on board, will defer to them for recs. I suspect her acidosis has more of a metabolic component possibly from her renal failure. Her lower than baseline CO2 is compensating her pH. Will defer management of metabolic acidosis and renal failure to nephrology. She is due to HD tomorrow. Rest of care above Viviaan Rosario MD Pulmonary Critical Care and Sleep Medicine
--- NOTE | 2018-01-18 18:18 | PN ---
DATE: 01/18/2018 PULMONARY PROGRESS NOTE REFERRING PHYSICIAN: Taylor House MD SUBJECTIVE: She is lying in the bed, head at 45 degrees. Awake, alert, but confused. On noninvasive ventilation. Family at bedside. Not much cough. No sputum production. No hemoptysis or hematemesis. No hematuria, no diarrhea. Does have leg swelling. OBJECTIVE: GENERAL: [id number] distress. VITAL SIGNS: Temperature is 98, heart rate is 95, respiratory rate is 24, blood pressure is 125/61, pulse ox 93% on noninvasive ventilation. HEENT: Moist mucous membranes. Crowded airway. Mallampati score is 4. NECK: Short thick neck. LUNGS: Have poor airflow. Prolonged expiratory phase with wheezing. HEART: S1 and S2. ABDOMEN: Soft, nontender. No organomegaly. EXTREMITIES: Has edema. NEUROLOGIC: Awake, awake, verbal, but confused. MEDICATIONS: She is on Aranesp 60 mcg weekly, Ativan 1 mg every six hours as needed for severe anxiety, Zithromax 250 mg daily, DuoNeb four times a day, ferrous sulfate 324 mg daily, folic acid 1 mg daily, heparin 5000 units subcutaneously every 12 hours, Levemir 10 units subcutaneously before meals and at bedtime, Lipitor 20 mg daily, metoprolol tartrate 12.5 mg every 12 hours, Motrin 400 mg every six hours as needed, gabapentin 100 mg daily, Nuvigil 250 mg daily, midodrine 10 mg three times a day, Singulair 10 mg at bedtime, Solu-Medrol 40 mg every 12 hours, Tylenol as needed, vitamin A and D at affected area, Xanax 0.25 mg twice a day on as-needed basis. LABORATORY DATA: Shows hemoglobin 12.5, hematocrit 41.3, WBC 6.2, platelet count is 211. Blood gases this morning showed pH 7.24, pCO2 of 50, O2 of 81; this is on 40% oxygen, noninvasive ventilation. Sodium 134, potassium 5.7, chloride 99, bicarbonate is 21, BUN 23, creatinine 4.0, glucose 234. Calcium 9.0, phosphorus 5.2, magnesium 2.0, AST 49, ALT 19, alkaline phosphatase is 273. Albumin is 3.3. IMPRESSION AND PLAN: Respiratory failure requiring noninvasive ventilation, and carbon dioxide retention and hypoxemia. She has chronic respiratory failure with acute failure on top of it. Noncompliant with the bilevel positive airway pressure basically because of confusion, renal failure, dialysis dependent, pulmonary hypertension, diastolic dysfunction. Post dialysis, has been hypotensive. This morning, she is much better than yesterday. Case discussed with family at bedside. Spoke to nursing staff. Also, spoke to merchandise flow team leader, . I placed a nasal airway in the right nostril, placed nasal cannula 2 liters, saturating between 88% and 90%, much more awake and alert. Recommended that keep close monitoring. If she becomes more lethargic and sleepy, may need to place back on bilevel positive airway pressure. Definitely, she should be placed on noninvasive ventilation at nighttime. Continue daytime stimulant. Continue intravenous and inhaled bronchodilator, antibiotics, gastric prophylaxis, deep venous thrombosis prophylaxis. Followup ABG, chest x-ray, CBC, CMP in the morning. Critical care time, more than 35 minutes. Overall, poor prognosis. Thank you and we will follow with you. Joss Arias MD
[2018-01-18] MEDS ORDERED: Dexmedetomidine 400mcg/100mL 400 MCG/100 ML BOTTLE IV PRN (19:18)
[2018-01-18] MEDS: Latanoprost 2.5 ml Opht Soln OD SCH (22:08)
[2018-01-19] MEDS: Saliva Substitute 44.3 ML PO SCH ×3 (00:22→20:01)
[2018-01-19] MEDS: Vitamins A & D Oint UD Foilpak TOP SCH ×6 (00:22→20:30)
--- NOTE | 2018-01-19 00:32 | PN ---
DATE: 01/18/2018 SUBJECTIVE: Patient is a 73-year-old female. Patient was seen and examined at the bedside on 01/18/2018, looking comfortable, on noninvasive ventilator, awake, alert. Daughter is on the bedside. No fever. No chills. No hematuria or hematochezia. No swelling of the legs. No chest pain. No palpitation. No coughing. PHYSICAL EXAMINATION VITAL SIGNS: Temperature 98, heart rate 95, respiratory rate 24, blood pressure 125/60, pulse oximetry 93% on noninvasive ventilator. HEENT: Head: Normocephalic, atraumatic. Eyes: PERRLA. Extraocular muscles are intact. Conjunctivae clear. Nose patent. NECK: Supple. No carotid bruit, JVD, or thyromegaly. LUNGS: Have poor airflow, prolonged expiratory phase with wheezing. HEART: S1 and S2 positive. ABDOMEN: Soft, nontender. No organomegaly. EXTREMITIES: No edema. No cyanosis. NEUROLOGICAL: Patient is awake, alert, is confused. MEDICATIONS: Aranesp, Ativan, Zithromax, DuoNeb, ferrous sulfate, folic acid, heparin, Levemir, Lipitor, metoprolol, Motrin, gabapentin, Nuvigil, midodrine, Singulair, Solu-Medrol, Tylenol, Xanax. LABORATORY DATA: Hemoglobin 12.5, hematocrit 41.3, white blood cells 6.2, platelets 211. Sodium 134, potassium 5.7, BUN 27, creatinine 4.0. AST 49, ALT 19. ASSESSMENT AND PLAN: Ms. Debby Olguin, 73-year-old female, with respiratory failure, requiring noninvasive ventilation; carbon dioxide retention; hypoxemia; chronic obstructive pulmonary disease with acute failure on the top of it; noncompliant for bilevel positive airway pressure; renal failure, on hemodialysis 3 times a week; pulmonary hypertension; diastolic dysfunction; post dialysis, getting hypotension. Discussion done with the daughter standing on the bedside. Reviewed Dr. Arias's notes. We will continue present treatment. Continue intravenous and inhaled bronchodilators, antibiotics, gastric and deep venous thrombosis prophylaxis. Followup ABG. We will follow up. Taylor House MD
[2018-01-19] MEDS: Brimonidine 0.15% 50 DROP/5 ML BOTTLE OD SCH ×3 (05:27→21:21)
[2018-01-19 06:19] LABS: HEMOGLOBIN 11.7 g/dL (12.0-16.0); MEAN CELL VOLUME 117.2 fl (80.0-105.0); MEAN CORPUSCULAR HEMOGLOBIN 35.3 pg (25.0-35.0); MEAN CORPUSCULAR HGB CONC 30.2 g/dl (31.0-37.0); MEAN PLATELET VOLUME 10.1 fl (7.0-11.0); RBC 3.31 10^6/uL (3.5-6.1); RED CELL DISTRIBUTION WIDTH 15.8 % (11.5-14.5); WHITE BLOOD COUNT 7.2 10^3/uL (4.5-11.0)
[2018-01-19 06:41] LABS: ALB/GLOB RATIO 0.9 (1.1-1.8); ALBUMIN 3.3 g/dL (3.0-4.8); CALCIUM 8.4 mg/dL (8.4-10.5)
[2018-01-19] MEDS ORDERED: Dextrose 50% SYRINGE Inj (50 ml) IVP ONE (07:18)
[2018-01-19] MEDS ORDERED: Insulin Regular 1 UNITS/0.01 ML ML SC ONE (07:19)
[2018-01-19] MEDS: Albuterol-Ipratrop 3 mg / 0.5 (3 ml) UD IH SCH ×4 (07:29→19:50)
--- NOTE | 2018-01-19 07:35 | CP.CCUPN ---
<Mary Fierro L - Last Filed: 01/19/18 11:39> CCU Subjective - Physician Review Subjective (Free Text): Resident Critical Care Progress Note Patient examined at bedside. Patient was agitated overnight, placed on precedex trip. Currently off sedation, in no acute distress. Critical Care Time Spent (in minutes): 45 CCU Objective - Vital Signs / Intake & Output Vital Signs (Last 4 hours): Vital Signs Temp Pulse Resp BP Pulse Ox 01/19/18 05:50 70 23 98 01/19/18 05:46 72 28 H 95/56 L 99 01/19/18 05:40 70 24 97 01/19/18 05:30 72 26 H 97/45 L 96 01/19/18 05:20 70 25 H 97 01/19/18 05:15 71 25 H 91/42 L 99 01/19/18 05:10 69 25 H 98 01/19/18 05:00 70 24 95/40 L 97 01/19/18 04:50 70 24 95 01/19/18 04:45 70 24 94/39 L 93 L 01/19/18 04:40 70 24 95 01/19/18 04:31 71 28 H 89/41 L 95 01/19/18 04:30 71 25 H 96 01/19/18 04:20 72 25 H 95 01/19/18 04:15 71 22 100/43 L 94 L 01/19/18 04:10 71 20 93 L 01/19/18 04:00 99.2 F 72 24 98/33 L 91 L 01/19/18 03:50 72 22 93 L 01/19/18 03:45 72 25 H 92/39 L 92 L 01/19/18 03:40 72 23 95 Intake and Output (Last 8hrs): Intake & Output 01/18/18 01/19/18 01/19/18 22:59 06:59 14:59 Intake Total 1000 1244.4 Output Total 0 0 Balance 1000 1244.4 Intake: IV 1000 1244.4 Left Hand 1000 1230 Oral 0 Output: Urine 0 0 Urine, Voided 0 0 Other: # Bowel Movements 1 - Physical Exam Head: Positive for: Atraumatic, Normocephalic Pupils: Positive for: PERRL Extroacular Muscles: Positive for: EOMI Conjunctiva: Positive for: Normal Mouth: Positive for: Dry Respiratory/Chest: Positive for: Clear to Auscultation, Good Air Exchange. Negative for: Respiratory Distress, Accessory Muscle Use, Rales, Retracting, Rhonchi Cardiovascular: Positive for: Regular Rate and Rhythm, Normal S1, S2. Negative for: Murmurs Abdomen: Negative for: Tenderness, Distention, Peritoneal Signs, Rebound Back: Positive for: Normal Inspection Upper Extremity: Positive for: Edema (Diffuse swelling of the upper extremity), Other (right AV graft ). Negative for: Cyanosis Lower Extremity: Negative for: Edema Neurological: Positive for: GCS=15, CN II-XII Intact, Speech Normal Skin: Positive for: Warm, Dry, Normal Color. Negative for: Rashes Psychiatric: Positive for: Alert - Medications Active Medications: Active Medications Generic Name Dose Route Start Last Admin Trade Name Freq PRN Reason Stop Dose Admin Acetaminophen 650 mg 01/12/18 22:07 01/14/18 17:30 Tylenol 325mg Tab PO 650 mg Q4H PRN Administration Fever >100.5 F Albuterol/Ipratropium 3 ml 01/13/18 07:30 01/19/18 07:29 Duoneb 3 Mg/0.5 Mg (3 Ml) Ud IH 3 ml QIDRESP [facility] Administration Alprazolam 0.25 mg 01/16/18 12:02 Xanax PO 01/23/18 18:01 BID PRN Agitation Protocol Armodafinil 250 mg 01/18/18 10:00 01/18/18 15:00 Nuvigil 250 Mg Tab PO Not Given DAILY [facility] Atorvastatin Calcium 20 mg 01/13/18 17:00 01/17/18 19:37 Lipitor PO Not Given DIN [facility] Brimonidine Tartrate 0 drop 01/13/18 06:00 01/19/18 05:27 Alphagan P 0.15% Opht OD 1 drop Q8 [facility] Administration Darbepoetin Jovi 60 mcg 01/16/18 10:00 01/16/18 09:27 Aranesp IVP 60 mcg Fr@1000 [facility] Administration Ferrous Sulfate 324 mg 01/13/18 10:00 01/18/18 14:57 Feosol PO Not Given DAILY [facility] Folic Acid 1 mg 01/13/18 10:00 01/18/18 14:57 Folic Acid PO Not Given DAILY [facility] Folic Acid 1 mg 01/18/18 14:30 01/18/18 16:11 Folic Acid IVP 1 mg DAILY [facility] Administration Gabapentin 100 mg 01/13/18 10:00 01/18/18 14:59 Neurontin PO Not Given DAILY [facility] Protocol Heparin Sodium (Porcine) 5,000 units 01/17/18 22:00 01/18/18 22:09 Heparin SC 5,000 units Q12 [facility] Administration Protocol Azithromycin 250 mg/ Sodium 250 mls @ 167 mls/hr 01/17/18 16:00 01/18/18 16:11 Chloride IVPB 167 mls/hr 1600 [facility] Administration Protocol Dextrose 1,000 mls @ 100 mls/hr 01/18/18 14:30 01/19/18 00:30 Dextrose 5% In Water 1000 Ml IV 100 mls/hr .Q10H [facility] Administration Dexmedetomidine HCl 400 mcg in 100 mls @ 3.697 mls/hr 01/18/18 19:18 01/19/18 02:00 Precedex 400mcg/100ml IV 0.16 mcg/kg/hr .Q24H PRN 3 mls/hr Agitation Titration Protocol 0.2 MCG/KG/HR Ibuprofen 400 mg 01/15/18 12:57 Motrin Tab PO Q6H PRN Pain, moderate (4-7) Insulin Detemir 10 unit 01/13/18 10:00 01/18/18 22:06 Levemir SC 10 units ACBHS [facility] Administration Insulin Human Regular 0 units 01/13/18 07:30 01/18/18 22:06 Humulin R Low SC Not Given ACHS [facility] Protocol Latanoprost 0 ml 01/13/18 22:00 01/18/18 22:08 Xalatan Opht OD 2.5 ml HS [facility] Administration Methylprednisolone 40 mg 01/17/18 22:00 01/18/18 22:07 Solu-Medrol IVP 40 mg Q12 [facility] Administration Metoprolol Tartrate 12.5 mg 01/13/18 10:00 01/18/18 14:59 Lopressor PO Not Given Q12 [facility] Midodrine 10 mg 01/13/18 10:00 01/18/18 15:00 Proamatine PO Not Given TID [facility] Montelukast Sodium 10 mg 01/12/18 22:30 01/17/18 22:15 Singulair PO Not Given HS [facility] Pantoprazole Sodium 40 mg 01/18/18 10:00 01/18/18 11:27 Protonix Inj IVP 40 mg DAILY [facility] Administration Saliva Substitute 0 ml 01/18/18 18:00 01/19/18 05:28 Saliva Substitute PO 1 ml Q6 [facility] Administration Sevelamer HCl 1,600 mg 01/13/18 08:00 01/18/18 12:00 Renagel PO Not Given WM [facility] Vitamin A 1 ea 01/18/18 16:00 01/19/18 04:00 Vitamin A & D Oint Ud Foilpak TOP 1 ea Q4 [facility] Administration - Patient Studies Lab Studies: Microbiology Studies 01/17/18 15:56 MRSA Culture (Admit) - Final Nose MRSA NOT DETECTED Lab Studies 01/19/18 01/19/18 01/18/18 Range/Units 05:30 05:30 21:50 WBC 7.2 (4.5-11.0) 10^3/uL RBC 3.31 L (3.5-6.1) 10^6/uL Hgb 11.7 L (12.0-16.0) g/dL Hct 38.8 (36.0-48.0) % MCV 117.2 H (80.0-105.0) fl MCH 35.3 H (25.0-35.0) pg MCHC 30.2 L (31.0-37.0) g/dl RDW 15.8 H (11.5-14.5) % Plt Count 253 (120.0-450.0) 10^3/uL MPV 10.1 (7.0-11.0) fl Sodium 132 (132-148) mmol/L Potassium 5.9 H* (3.6-5.0) mmol/L Chloride 96 L (98-107) mmol/L Carbon Dioxide 22 (21-33) mmol/L Anion Gap 19 (10-20) BUN 34 H (7-21) mg/dL Creatinine 5.0 H (0.7-1.2) mg/dl Est GFR ( Amer) 10 Est GFR (Non-Af Amer) 8 POC Glucose (mg/dL) 259 H (65-110) mg/dL Random Glucose 306 H* D (70-110) mg/dL Calcium 8.4 (8.4-10.5) mg/dL Phosphorus 6.5 H (2.5-4.5) mg/dL Magnesium 2.0 (1.7-2.2) mg/dL Total Bilirubin 0.7 (0.2-1.3) mg/dL AST 25 (14-36) U/L ALT 22 (7-56) U/L Alkaline Phosphatase 248 H (38-126) U/L Total Protein 7.1 (5.8-8.3) g/dL Albumin 3.3 (3.0-4.8) g/dL Globulin 3.8 gm/dL Albumin/Globulin Ratio 0.9 L (1.1-1.8) 01/18/18 01/18/18 01/18/18 Range/Units 17:15 16:11 11:45 WBC (4.5-11.0) 10^3/uL RBC (3.5-6.1) 10^6/uL Hgb (12.0-16.0) g/dL Hct (36.0-48.0) % MCV (80.0-105.0) fl MCH (25.0-35.0) pg MCHC (31.0-37.0) g/dl RDW (11.5-14.5) % Plt Count (120.0-450.0) 10^3/uL MPV (7.0-11.0) fl Sodium 133 (132-148) mmol/L Potassium 5.3 H (3.6-5.0) mmol/L Chloride 98 (98-107) mmol/L Carbon Dioxide 22 (21-33) mmol/L Anion Gap 18 (10-20) BUN 29 H (7-21) mg/dL Creatinine 4.5 H (0.7-1.2) mg/dl Est GFR ( Amer) 12 Est GFR (Non-Af Amer) 10 POC Glucose (mg/dL) 221 H 234 H (65-110) mg/dL Random Glucose 211 H (70-110) mg/dL Calcium 8.8 (8.4-10.5) mg/dL Phosphorus (2.5-4.5) mg/dL Magnesium (1.7-2.2) mg/dL Total Bilirubin (0.2-1.3) mg/dL AST (14-36) U/L ALT (7-56) U/L Alkaline Phosphatase (38-126) U/L Total Protein (5.8-8.3) g/dL Albumin (3.0-4.8) g/dL Globulin gm/dL Albumin/Globulin Ratio (1.1-1.8) 01/18/18 Range/Units 07:20 WBC (4.5-11.0) 10^3/uL RBC (3.5-6.1) 10^6/uL Hgb (12.0-16.0) g/dL Hct (36.0-48.0) % MCV (80.0-105.0) fl MCH (25.0-35.0) pg MCHC (31.0-37.0) g/dl RDW (11.5-14.5) % Plt Count (120.0-450.0) 10^3/uL MPV (7.0-11.0) fl Sodium (132-148) mmol/L Potassium (3.6-5.0) mmol/L Chloride (98-107) mmol/L Carbon Dioxide (21-33) mmol/L Anion Gap (10-20) BUN (7-21) mg/dL Creatinine (0.7-1.2) mg/dl Est GFR ( Amer) Est GFR (Non-Af Amer) POC Glucose (mg/dL) 150 H (65-110) mg/dL Random Glucose (70-110) mg/dL Calcium (8.4-10.5) mg/dL Phosphorus (2.5-4.5) mg/dL Magnesium (1.7-2.2) mg/dL Total Bilirubin (0.2-1.3) mg/dL AST (14-36) U/L ALT (7-56) U/L Alkaline Phosphatase (38-126) U/L Total Protein (5.8-8.3) g/dL Albumin (3.0-4.8) g/dL Globulin gm/dL Albumin/Globulin Ratio (1.1-1.8) Laboratory Results - last 24 hr 01/18/18 01/18/18 01/18/18 07:20 11:45 16:11 WBC RBC Hgb Hct MCV MCH MCHC RDW Plt Count MPV Sodium Potassium Chloride Carbon Dioxide Anion Gap BUN Creatinine Est GFR ( Amer) Est GFR (Non-Af Amer) POC Glucose (mg/dL) 150 H 234 H 221 H Random Glucose Calcium Phosphorus Magnesium Total Bilirubin AST ALT Alkaline Phosphatase Total Protein Albumin Globulin Albumin/Globulin Ratio 01/18/18 01/18/18 01/19/18 17:15 21:50 05:30 WBC 7.2 RBC 3.31 L Hgb 11.7 L Hct 38.8 MCV 117.2 H MCH 35.3 H MCHC 30.2 L RDW 15.8 H Plt Count 253 MPV 10.1 Sodium 133 Potassium 5.3 H Chloride 98 Carbon Dioxide 22 Anion Gap 18 BUN 29 H Creatinine 4.5 H Est GFR ( Amer) 12 Est GFR (Non-Af Amer) 10 POC Glucose (mg/dL) 259 H Random Glucose 211 H Calcium 8.8 Phosphorus Magnesium Total Bilirubin AST ALT Alkaline Phosphatase Total Protein Albumin Globulin Albumin/Globulin Ratio 01/19/18 05:30 WBC RBC Hgb Hct MCV MCH MCHC RDW Plt Count MPV Sodium 132 Potassium 5.9 H* Chloride 96 L Carbon Dioxide 22 Anion Gap 19 BUN 34 H Creatinine 5.0 H Est GFR ( Amer) 10 Est GFR (Non-Af Amer) 8 POC Glucose (mg/dL) Random Glucose 306 H* D Calcium 8.4 Phosphorus 6.5 H Magnesium 2.0 Total Bilirubin 0.7 AST 25 ALT 22 Alkaline Phosphatase 248 H Total Protein 7.1 Albumin 3.3 Globulin 3.8 Albumin/Globulin Ratio 0.9 L Fingerstick Blood Sugar Results: 259 Review of Systems - Review of Systems All systems: reviewed and no additional remarkable complaints except (as stated in HPI) Critical Care Progress Note - Extremities/Vascular Does the Patient have a Central Venous Catheter?: Yes Insertion Site: Subclavian Vein - Prophylaxis GI Prophylaxis GI: PPI - Prophylaxis DVT Prophylaxis DVT: Heparin SQ - Nutrition Nutrition: Nutrition Category Date Time Status NPO Diet [DIET] Diets 01/18/18 Breakfast Ordered Assessment/Plan - Assessment and Plan (Free Text) Assessment: Patient is a 73 year old F with PMHx of ESRD on hemodialysis (M/W/F), DM, HTN, CAD with stent placement (12/2014), and anemia, who presented to the ED from a dialysis center for evaluation of hypotension and dizziness. During hospital course, GALLERY INTERN was called for hypotension and lethargy. Patient was noted to be in hypercapnic respiratory failure. ICU was consulted for evaluation. Plan: Neuro: - AAOx3; mental status improved - Episodes of agitation; ativan prn - Maintain normothermia - Off precedex drip Cardio: - Hx of HTN, CAD (stent placement), CHF-pEF, Aortic stenosis - Echo (12/10/17): EF 50%. Evidence of pulmonary hypertension. - BP stable, hold blood pressure medications when SBP < 100. - IVF - c/w home meds once patient tolerates PO Pulm: - Hypercapnic Respiratory Failure 2/2 COPD Exacerbation - c/w azithromycin 250 mg IV daily and methylprednisolone 20 mg IV Q12H - duonebs, CPAP PRN GI: - Seen by speech therapy. Recommended NPO, alternative means of nutrition and hydration - Protonix 40 mg IV daily Heme: - H/H stable - Heparin 5000 U SC Q12 Renal: - Hyperkalemia; K was 5.9. Given calcium gluconate, D50, insulin 10units - Continue to monitor - BUN/Cr is 34/5.0 - HD (M/W/F) Endo: - Hx of DM - ISS (low) - Accuchecks Dispo: Patient now optimized for transfer to telemetry. Case was discussed and reviewed with Attending Physician, Dr. Gerry Fierro PGY-1 - Date & Time Date: 01/19/18 Time: 08:00 <Santos Garrett - Last Filed: 01/19/18 13:09> CCU Objective - Vital Signs / Intake & Output Intake and Output (Last 8hrs): Intake & Output 01/18/18 01/19/18 01/19/18 22:59 06:59 14:59 Intake Total 1000 1244.4 Output Total 0 0 Balance 1000 1244.4 Intake: IV 1000 1244.4 Left Hand 1000 1230 Oral 0 Output: Urine 0 0 Urine, Voided 0 0 Other: # Bowel Movements 1 - Medications Active Medications: Active Medications Generic Name Dose Route Start Last Admin Trade Name Freq PRN Reason Stop Dose Admin Acetaminophen 650 mg 01/12/18 22:07 01/14/18 17:30 Tylenol 325mg Tab PO 650 mg Q4H PRN Administration Fever >100.5 F Albuterol/Ipratropium 3 ml 01/13/18 07:30 01/19/18 11:16 Duoneb 3 Mg/0.5 Mg (3 Ml) Ud IH 3 ml QIDRESP [facility] Administration Alprazolam 0.25 mg 01/16/18 12:02 Xanax PO 01/23/18 18:01 BID PRN Agitation Protocol Armodafinil 250 mg 01/18/18 10:00 01/18/18 15:00 Nuvigil 250 Mg Tab PO Not Given DAILY [facility] Atorvastatin Calcium 20 mg 01/13/18 17:00 01/17/18 19:37 Lipitor PO Not Given DIN [facility] Brimonidine Tartrate 0 drop 01/13/18 06:00 01/19/18 05:27 Alphagan P 0.15% Opht OD 1 drop Q8 [facility] Administration Darbepoetin Jovi 60 mcg 01/16/18 10:00 01/16/18 09:27 Aranesp IVP 60 mcg Fr@1000 [facility] Administration Ferrous Sulfate 324 mg 01/13/18 10:00 01/19/18 10:09 Feosol PO Not Given DAILY [facility] Folic Acid 1 mg 01/13/18 10:00 01/18/18 14:57 Folic Acid PO Not Given DAILY [facility] Folic Acid 1 mg 01/18/18 14:30 01/19/18 12:04 Folic Acid IVP 1 mg DAILY [facility] Administration Gabapentin 100 mg 01/13/18 10:00 01/19/18 10:17 Neurontin PO Not Given DAILY [facility] Protocol Heparin Sodium (Porcine) 5,000 units 01/17/18 22:00 01/19/18 10:15 Heparin SC 5,000 units Q12 [facility] Administration Protocol Azithromycin 250 mg/ Sodium 250 mls @ 167 mls/hr 01/17/18 16:00 01/18/18 16:11 Chloride IVPB 167 mls/hr 1600 [facility] Administration Protocol Dextrose 1,000 mls @ 100 mls/hr 01/18/18 14:30 01/19/18 00:30 Dextrose 5% In Water 1000 Ml IV 100 mls/hr .Q10H [facility] Administration Ibuprofen 400 mg 01/15/18 12:57 Motrin Tab PO Q6H PRN Pain, moderate (4-7) Insulin Detemir 15 unit 01/19/18 11:18 Levemir SC ACBHS [facility] Insulin Human Regular 0 units 01/13/18 07:30 01/19/18 12:17 Humulin R Low SC 2 unit ACHS [facility] Administration Protocol Latanoprost 0 ml 01/13/18 22:00 01/18/18 22:08 Xalatan Opht OD 2.5 ml HS [facility] Administration Methylprednisolone 20 mg 01/19/18 10:11 Solu-Medrol IVP Q12 [facility] Metoprolol Tartrate 12.5 mg 01/13/18 10:00 01/18/18 14:59 Lopressor PO Not Given Q12 [facility] Midodrine 10 mg 01/13/18 10:00 01/18/18 15:00 Proamatine PO Not Given TID [facility] Montelukast Sodium 10 mg 01/12/18 22:30 01/17/18 22:15 Singulair PO Not Given HS [facility] Pantoprazole Sodium 40 mg 01/18/18 10:00 01/19/18 10:18 Protonix Inj IVP 40 mg DAILY [facility] Administration Saliva Substitute 0 ml 01/18/18 18:00 01/19/18 05:28 Saliva Substitute PO 1 ml Q6 [facility] Administration Sevelamer HCl 1,600 mg 01/13/18 08:00 01/18/18 12:00 Renagel PO Not Given WM [facility] Vitamin A 1 ea 01/18/18 16:00 01/19/18 09:58 Vitamin A & D Oint Ud Foilpak TOP 1 ea Q4 [facility] Administration - Patient Studies Lab Studies: Microbiology Studies 01/17/18 15:56 MRSA Culture (Admit) - Final Nose MRSA NOT DETECTED Lab Studies 01/19/18 01/19/18 01/18/18 Range/Units 05:30 05:30 21:50 WBC 7.2 (4.5-11.0) 10^3/uL RBC 3.31 L (3.5-6.1) 10^6/uL Hgb 11.7 L (12.0-16.0) g/dL Hct 38.8 (36.0-48.0) % MCV 117.2 H (80.0-105.0) fl MCH 35.3 H (25.0-35.0) pg MCHC 30.2 L (31.0-37.0) g/dl RDW 15.8 H (11.5-14.5) % Plt Count 253 (120.0-450.0) 10^3/uL MPV 10.1 (7.0-11.0) fl Sodium 132 (132-148) mmol/L Potassium 5.9 H* (3.6-5.0) mmol/L Chloride 96 L (98-107) mmol/L Carbon Dioxide 22 (21-33) mmol/L Anion Gap 19 (10-20) BUN 34 H (7-21) mg/dL Creatinine 5.0 H (0.7-1.2) mg/dl Est GFR ( Amer) 10 Est GFR (Non-Af Amer) 8 POC Glucose (mg/dL) 259 H (65-110) mg/dL Random Glucose 306 H* D (70-110) mg/dL Calcium 8.4 (8.4-10.5) mg/dL Phosphorus 6.5 H (2.5-4.5) mg/dL Magnesium 2.0 (1.7-2.2) mg/dL Total Bilirubin 0.7 (0.2-1.3) mg/dL AST 25 (14-36) U/L ALT 22 (7-56) U/L Alkaline Phosphatase 248 H (38-126) U/L Total Protein 7.1 (5.8-8.3) g/dL Albumin 3.3 (3.0-4.8) g/dL Globulin 3.8 gm/dL Albumin/Globulin Ratio 0.9 L (1.1-1.8) 01/18/18 01/18/18 Range/Units 17:15 16:11 WBC (4.5-11.0) 10^3/uL RBC (3.5-6.1) 10^6/uL Hgb (12.0-16.0) g/dL Hct (36.0-48.0) % MCV (80.0-105.0) fl MCH (25.0-35.0) pg MCHC (31.0-37.0) g/dl RDW (11.5-14.5) % Plt Count (120.0-450.0) 10^3/uL MPV (7.0-11.0) fl Sodium 133 (132-148) mmol/L Potassium 5.3 H (3.6-5.0) mmol/L Chloride 98 (98-107) mmol/L Carbon Dioxide 22 (21-33) mmol/L Anion Gap 18 (10-20) BUN 29 H (7-21) mg/dL Creatinine 4.5 H (0.7-1.2) mg/dl Est GFR ( Amer) 12 Est GFR (Non-Af Amer) 10 POC Glucose (mg/dL) 221 H (65-110) mg/dL Random Glucose 211 H (70-110) mg/dL Calcium 8.8 (8.4-10.5) mg/dL Phosphorus (2.5-4.5) mg/dL Magnesium (1.7-2.2) mg/dL Total Bilirubin (0.2-1.3) mg/dL AST (14-36) U/L ALT (7-56) U/L Alkaline Phosphatase (38-126) U/L Total Protein (5.8-8.3) g/dL Albumin (3.0-4.8) g/dL Globulin gm/dL Albumin/Globulin Ratio (1.1-1.8) Laboratory Results - last 24 hr 01/18/18 01/18/18 01/18/18 16:11 17:15 21:50 WBC RBC Hgb Hct MCV MCH MCHC RDW Plt Count MPV Sodium 133 Potassium 5.3 H Chloride 98 Carbon Dioxide 22 Anion Gap 18 BUN 29 H Creatinine 4.5 H Est GFR ( Amer) 12 Est GFR (Non-Af Amer) 10 POC Glucose (mg/dL) 221 H 259 H Random Glucose 211 H Calcium 8.8 Phosphorus Magnesium Total Bilirubin AST ALT Alkaline Phosphatase Total Protein Albumin Globulin Albumin/Globulin Ratio 01/19/18 01/19/18 05:30 05:30 WBC 7.2 RBC 3.31 L Hgb 11.7 L Hct 38.8 MCV 117.2 H MCH 35.3 H MCHC 30.2 L RDW 15.8 H Plt Count 253 MPV 10.1 Sodium 132 Potassium 5.9 H* Chloride 96 L Carbon Dioxide 22 Anion Gap 19 BUN 34 H Creatinine 5.0 H Est GFR ( Amer) 10 Est GFR (Non-Af Amer) 8 POC Glucose (mg/dL) Random Glucose 306 H* D Calcium 8.4 Phosphorus 6.5 H Magnesium 2.0 Total Bilirubin 0.7 AST 25 ALT 22 Alkaline Phosphatase 248 H Total Protein 7.1 Albumin 3.3 Globulin 3.8 Albumin/Globulin Ratio 0.9 L Critical Care Progress Note - Nutrition Nutrition: Nutrition Category Date Time Status NPO Diet [DIET] Diets 01/18/18 Breakfast Ordered Assessment/Plan - Assessment and Plan (Free Text) Plan: Patient seen and examined, on rounds, with resident, agree with note with following additions/exceptions: Patient is 73 year old F with PMHx of ESRD on hemodialysis (M/W/F), DM, HTN, CAD with stent placement (12/2014), and anemia, who presented to the ED from a dialysis center for hypercapnic resp failure, requiring BIPAP. Currently afebrile, BP stable, comfortable in NAD, awake, alert, follows commands. Tolerated HD today Hypercapnic resp failure, resolved COPD exacerbation ESRD on HD DM Hyperkalemia, s/p HD Hx of CAD Recommend: - supp o2 as neede, goal sat 90%, BIPAP at night as needed - NO ID issues - BP control - monitor FS - HD today, repeat BMP - IV steroids taper - GI ppx - DVT ppx - Transfer to telemetry, stable
--- NOTE | 2018-01-19 08:35 | PN ---
DATE: 01/16/2018 REASON FOR CONSULTATION: Cardiac evaluation, chest pain atypical, tenderness, history of coronary artery disease, and hypertension. This note is in addition to dictated by nurse practitioner, Zoya Bradley. The patient is stable, no evidence of acute WA, tenderness in chest, and altered mental status. RECOMMENDATIONS: Continue control of blood pressure, continue dialysis. CVS status is stable. No further cardiac workup is planned at this time. We will follow with you. Thank you Dr. House for providing us the opportunity in taking care of the patient, Debby Olguin. Joss Bah MD
[2018-01-19] MEDS: Insulin Reg-LOW-Coverage SC SCH ×4 (08:52→22:00)
[2018-01-19] MEDS: Insulin Detemir 100 units/ml Vial (Levemir) SC SCH ×2 (10:03→23:00)
[2018-01-19] MEDS ORDERED: Insulin Detemir 100 units/ml Vial (Levemir) SC SCH ×2 (10:10→10:12)
--- NOTE | 2018-01-19 16:17 | PN ---
DATE: 01/19/2018 REASON FOR CONSULTATION AND FOLLOWUP: Cardiac evaluation, CO2 narcosis, hypoxemic, moved to ICU, history of coronary artery disease. SUBJECTIVE: The patient is getting ready for dialysis, on Pradaxa infusion for her agitation, getting ready for dialysis today nasal airway, which is in the right nostril. OBJECTIVE: VITAL SIGNS: Temperature afebrile, heart rate 70, blood pressure 100/60. HEENT: PERRLA, intact. NECK: Supple. No carotid bruits or thyromegaly. CHEST: Clear to auscultation. HEART: S1 and S2 regular. ABDOMEN: Soft. EXTREMITIES: Clubbing, cyanosis negative. LABORATORY DATA: Blood workup as follows: WBC 7.1, hemoglobin 12.9, hematocrit 38.8, platelet count 253. Chemistry shows sodium 135, potassium 5.9, chloride 96, carbon dioxide 22, anion gap of 99, BUN 35, creatinine 5. Sugar 306. IMPRESSION: A 73-year-old morbidly obese female with history of coronary artery disease status post stent in the past, history of sleep apnea, end-stage renal disease, on dialysis, noncompliance with the continuous positive airway pressure, because of CO2 narcosis, hypercapnia, hypoxemia, moved to intensive care unit, now the patient with nasal airway in the right nostrils, getting ready for dialysis. Recent echocardiogram shows preserved left ventricular function. RECOMMENDATIONS: Aggressive pulmonary treatment and followup, noninvasive ventilation, dialysis, low dose beta rossana as blood pressure and heart rate is tolerated. CVS status is stable relatively. No cardiac workup is planned or warranted, but the patient definitely needs very close followup with pulmonary and compliance for CPAP. We will follow with you. Thank you Dr. House for providing us the opportunity in taking care of the patient, Sharif Guardado. Joss Bah MD
[2018-01-19] MEDS: Azithromycin 250 MG in Sodium Chloride 0.9% 250 ML IVPB SCH (17:18)
[2018-01-19] MEDS: Latanoprost 2.5 ml Opht Soln OD SCH (21:21)
[2018-01-19] MEDS: MethylPREDNISolone 40 mg Vial IVP SCH (22:00)
[2018-01-20 00:21] LABS: ALB/GLOB RATIO 0.8 (1.1-1.8); ALBUMIN 3.2 g/dL (3.0-4.8); CALCIUM 8.9 mg/dL (8.4-10.5)
[2018-01-20] MEDS: Vitamins A & D Oint UD Foilpak TOP SCH ×6 (00:54→20:00)
[2018-01-20] MEDS: Saliva Substitute 44.3 ML PO SCH ×5 (00:54→17:45)
--- NOTE | 2018-01-20 00:57 | PN ---
DATE: 01/19/2018 PULMONARY CRITICAL CARE PROGRESS NOTE REFERRING PHYSICIAN: Taylor House MD SUBJECTIVE: She is lying in the bed, head at 45 degrees, on nasal cannula oxygen. Awake, alert, confused. Has some cough and sputum production. No nausea. No vomiting. No diarrhea. Has trace leg swelling. OBJECTIVE: GENERAL: No acute distress. VITAL SIGNS: Temperature is 98, heart rate is 97, respiratory rate is 22, blood pressure 76/37, pulse ox 90%, on nasal cannula. HEENT: Moist mucous membrane. Crowded airway. Mallampati score is 4. NECK: Supple. No JVD. LUNGS: Have a prolonged expiratory phase with some wheezing. HEART: S1 and S2. ABDOMEN: Soft, nontender, nondistended. EXTREMITIES: Trace edema. NEUROLOGIC: Awake, alert, verbal. Does not follow commands, confused. MEDICATIONS: She is on Alphagan eyedrops, also on Aranesp 60 mcg weekly, Zithromax 250 mg daily, DuoNeb four times a day, ferrous sulfate 325 mg daily, folic acid 1 mg daily, heparin 5000 units subcu every 12 hours, insulin 15 units subcu before meals at bedtime, Lipitor 20 mg daily, metoprolol tartrate 12.5 mg twice a day, Motrin 4 mg every 6 hours p.r.n., gabapentin 100 mg daily, Nuvigil 250 mg daily in the morning, midodrine 10 mg three times a day, Protonix 40 mg daily, Renagel 1600 mg with meals, Singulair 10 mg daily, Solu-Medrol 20 mg every 12 hours, Tylenol p.r.n. basis, vitamin A and D ointment to the affected area, Xanax 0.25 mg twice a day p.r.n. basis. LABORATORY DATA: Shows hemoglobin 11.7, hematocrit 38.8, WBC 7.2, platelet count is 253. Sodium 132, potassium 5.9, chloride 96, bicarbonate 22, BUN 34, creatinine 5, glucose 187, calcium 8.4, phosphorus 6.5, magnesium 2. AST 25, ALT 22, alk phos is 248, albumin is 3.3. Nasal MRSA has been negative. IMPRESSION AND PLAN: Respiratory failure, being on noninvasive ventilation with carbon dioxide retention and hypoxemia. She had a chronic respiratory failure with acute onset this time, mostly noncompliant with bilevel positive airway pressure, renal failure, dialysis dependent, pulmonary retention, diastolic cardiac dysfunction. Pulmonary point of view, doing much better. I spoke to nursing staff. May continue supplemental oxygen. Keep head at 45 degrees. Titrate FiO2 to pulse ox around 90%. Bilevel positive airway pressure use in nighttime. Continue intravenous and inhaled bronchodilator. Continue daytime stimulant. Infectious diseases and nephrology followup. Follow up labs in the morning. Critical care time more than 35 minutes. Thank you and we will follow with you. Joss Arias MD
--- NOTE | 2018-01-20 01:04 | PN ---
DATE: 01/19/2018 SUBJECTIVE: The patient is seen in the ICU. She is lying in bed. She is not really following commands. She is not able to recognize me, but she is talking incessantly. Unclear what she is saying. Currently not on BiPAP, but she was on BiPAP overnight. PHYSICAL EXAMINATION: VITAL SIGNS: Blood pressure 102/49, respiratory rate 18, temperature 99.2. HEENT: Normocephalic, atraumatic, positive pallor. NECK: Supple. No JVD. CARDIOPULMONARY: S1 and S2, regular rate and rhythm, no murmur, no rub. LUNGS: Bilateral equal entry, bilateral equal expansion, bilateral rhonchi. ABDOMEN: Obese, distended, soft, nontender, bowel sounds present. EXTREMITIES: No lower extremity edema, 3+ pitting edema of the upper extremities. INTAKE AND OUTPUT: 2244/not charted. LABORATORY DATA: WBC 7, hemoglobin 11.7, hematocrit 38.8, platelets 253. Sodium 132, potassium 5.9, chloride 96, CO2 22, BUN 34, creatinine 5.0, glucose 306, calcium 8.4, phosphorus 6.5, magnesium 2.0. ABG shows pH of 7.24. There is no ____ ABG today. CURRENT MEDICATIONS: Aranesp 60,azithromycin 250 IV piggyback, DuoNeb, Feosol, folic acid, heparin, insulin, Lipitor, Lopressor 12.5 every 12 hours, Neurontin, , ProAmatine, Protonix, Renagel, Singulair, Solu-Medrol, Tylenol, Xanax. ASSESSMENT: 1. Altered mental status,? etiology,? sepsis. 2. Non-insulin dependent diabetes mellitus. 3. Hypertension. 4. Diabetic neuropathy, blindness. 5. Coronary artery disease. 6. Cardiomyopathy,? diastolic dysfunction. 7. Hyperphosphatemia. 8. Hyperkalemia. PLAN: 1. Stable dialysis earlier today. Minimal ultrafiltration. 2. Appears volume overloaded, we will arrange for dry ultrafiltration tomorrow. 3. Respiratory acidosis, resolved. 4.. Discontinue D5W. 5. Continue phosphate binders. 6. Monitor daily labs. 7. Case discussed with dialysis staff, case discussed with ICU staff, case discussed with robotics systems engineer. More than 35 minutes spent in the care of this critically ill patient. Marlyn Snow MD
[2018-01-20] MEDS: Brimonidine 0.15% 50 DROP/5 ML BOTTLE OD SCH ×3 (05:24→21:32)
--- NOTE | 2018-01-20 06:05 | PN ---
DATE: 01/19/2018 SUBJECTIVE: The patient was seen and examined at bedside on 01/19/2018, looking comfortable. Last night, the patient was very restless, was placed on Precedex drip and currently off sedation, no acute distress. No fever. No chills. No hematuria, hematochezia. No swelling of the leg. No chest pain. No palpitation. No headache. No dizziness. PHYSICAL EXAMINATION: VITAL SIGNS: Temperature 98.6, pulse 70, respiratory rate 23, blood pressure 95/56, pulse oximetry 99. HEENT: Head normocephalic, atraumatic. Eyes; PERRLA. Extraocular muscles are intact. Conjunctivae clear. Nose patent. Mucous membranes moist. NECK: Supple. No carotid bruits, JVD, thyromegaly. CHEST: Bilaterally symmetrical. HEART: S1, S2 positive. LUNGS: Clear to auscultation. ABDOMEN: Soft. Bowel sounds present. No organomegaly. EXTREMITIES: No edema. No cyanosis. NEUROLOGICAL: The patient is awake, alert. Follows simple commands. MEDICATIONS: Tylenol, DuoNeb, Xanax, Nuvigil, Lipitor, Aranesp, iron, folic acid, dexmedetomidine, morphine, Levemir insulin, Renagel, vitamin A and D ointment. LABORATORY DATA: White blood cell 7.2, hemoglobin 11.7, hematocrit 38.8, platelets 253. Sodium 136, potassium 5.3, glucose 221. ASSESSMENT AND PLAN: Mrs. Debby Olguin, 73-year-old female with multiple medical problems, has history of coronary artery disease status post cardiac stenting; obstructive sleep apnea syndrome; end-stage renal disease, on hemodialysis; noncompliant with continuous positive airway pressure; noncompliant with the medications; history of hypercapnia; hypoxemia; renal insufficiency, on hemodialysis three times a week; moved to intensive care unit. Now the patient is with nasal cannula in the right nostril and getting ready for dialysis. Recent echocardiography shows history of pulmonary function test, noninvasive ventilation; dialysis. Gastrointestinal and deep venous thrombosis prophylaxis. Reviewed the labs of Dr. Bah and room service associate Dr. Arias and by Dr. Rosario. We will follow up. Taylor House MD [facility] # [id number] MTDDamien
[2018-01-20 06:29] LABS: HEMOGLOBIN 12.1 g/dL (12.0-16.0); MEAN CELL VOLUME 115.2 fl (80.0-105.0); MEAN CORPUSCULAR HEMOGLOBIN 35.4 pg (25.0-35.0); MEAN CORPUSCULAR HGB CONC 30.7 g/dl (31.0-37.0); MEAN PLATELET VOLUME 10.2 fl (7.0-11.0); RBC 3.42 10^6/uL (3.5-6.1); RED CELL DISTRIBUTION WIDTH 16.1 % (11.5-14.5); WHITE BLOOD COUNT 9.8 10^3/uL (4.5-11.0)
[2018-01-20 07:07] LABS: ALB/GLOB RATIO 0.8 (1.1-1.8); ALBUMIN 3.4 g/dL (3.0-4.8); CALCIUM 9.2 mg/dL (8.4-10.5)
[2018-01-20] MEDS: Albuterol-Ipratrop 3 mg / 0.5 (3 ml) UD IH SCH ×4 (07:43→20:15)
[2018-01-20] MEDS: Insulin Reg-LOW-Coverage SC SCH ×4 (08:54→22:45)
[2018-01-20] MEDS: Insulin Detemir 100 units/ml Vial (Levemir) SC SCH ×2 (08:55→22:50)
[2018-01-20] MEDS: MethylPREDNISolone 40 mg Vial IVP SCH ×2 (11:40→22:49)
--- NOTE | 2018-01-20 13:59 | RAD ---
Date of service: 01/20/2018 HISTORY: shortness of breath COMPARISON: 01/15/2018 FINDINGS: LUNGS: Bilateral linear infiltrates in the upper lobes unchanged PLEURA: No significant pleural effusion identified, no pneumothorax apparent. CARDIOVASCULAR: Aortic calcification Moderate cardiomegaly no pulmonary vascular congestion. OSSEOUS STRUCTURES: No significant abnormalities. VISUALIZED UPPER ABDOMEN: Normal. OTHER FINDINGS: Right-sided dialysis catheter IMPRESSION: Moderate cardiomegaly. Linear infiltrates in both upper lobes unchanged
--- NOTE | 2018-01-20 14:03 | PN ---
DATE: 01/20/2018 REASON FOR CONSULTATION: Cardiac evaluation, CO2 narcosis, hypoxemia, moved to ICU, history of coronary artery disease, and altered mental status. SUBJECTIVE: The patient is now Ventimask, not in apparent distress, but still screams off and on. Was on Precedex because of the agitation. OBJECTIVE: Denies any chest pain. PHYSICAL EXAMINATION: As follows; VITAL SIGNS: Temperature afebrile, heart rate 100, and blood pressure 100/60. HEENT: PERRLA intact. NECK: Supple. No carotid bruits or thyromegaly. CHEST: Clear to auscultation. HEART: S1, S2 regular. ABDOMEN: Soft. EXTREMITIES: Clubbing and cyanosis negative. LABORATORY DATA: Blood workup as follows; WBC 9.8, hemoglobin 12.9, hematocrit 39.4, and platelet count 252. Chemistry shows sodium 135, potassium 4, chloride 97, carbon dioxide 26, anion gap of 60, BUN 26, and creatinine 3.3. IMPRESSION: A 73-year-old morbidly obese female, history of end-stage renal disease, dialysis dependent; history of coronary artery disease in 2015 status post percutaneous transluminal coronary angioplasty; recent echo preserved left ventricular function; noncompliant with the medication; pulls out the CPAP; goes into hypercapnia; CO2 narcosis; Moved to ICU. Also very much restless, on Precedex for agitation. Recent echo shows preserved left ventricular function. RECOMMENDATIONS: Aggressive pulmonary treatment and followup, continue dialysis, noninvasive ventilator. CVS status is relatively stable. No further cardiac workup is planned or warranted. Encouraged to continue noninvasive ventilator and manage the CPAP. Continue DVT prophylaxis, continue atorvastatin, continue metoprolol. Aspirin probably fell from , I will resume back on aspirin. Thank you Dr. House for providing us the opportunity in taking care of the patient, Sharif. Joss Bah MD
--- NOTE | 2018-01-20 14:06 | PN ---
DATE: 01/20/2018 PULMONARY PROGRESS NOTE REFERRING PHYSICIAN: Taylor House MD SUBJECTIVE: The patient is lying in bed with nasal canula in place, head of bed 45 degrees. The patient is awake, alert, confused, verbally. No reported nausea, vomiting, diarrhea, leg pain, leg swelling,. OBJECTIVE: VITAL SIGNS: Blood pressure 63/24, heart rate 106,respirations 22, temperature 98.2, pulse ox 93% on nasal canula . PHYSICAL EXAMINATION: GENERAL: No acute distress. HEENT: Moist mucous membranes. Crowded airway. Mallampati score is 4. NECK: Supple. No JVD. LUNGS: Prolonged expiratory phase with few wheezing using abdominal muscles for respirations. CARDIOVASCULAR: S1 and S2 audible. ABDOMEN: Soft, nontender. No distention, no organomegaly. EXTREMITIES: Trace edema. NEUROLOGIC: Awake, alert, verbal, confused and not following commands MEDICATIONS: Reviewed. Tylenol 650 mg every 4 hours when necessary for fever greater than 100.5. DuoNeb 3 mL inhalation every 6 hours, aspirin 81 mg daily, Azithromycin 25 mg IV daily, Alphagan eyedrops per 8 hours, Aranesp 60 mcg IV push, ferrous sulfate 324 mg by mouth daily, folic acid 1 mg daily, gabapentin 100 mg daily, Heparin 5000 units subcutaneously every 12 hours, Motrin 400 mg every 6 hours when necessary for moderate pain, Levemir 15 units ac and at bedtime., Humulin R sliding scale, Latanoprost eye drops at that time, Solu-Medrol 20 mg IV push every 12 hours, metoprolol on hold. LABORATORY DATA: Reviewed. WBC 9.8, RBC 3.42, hemoglobin 12.1, hematocrit 39.4, platelets 252. APTT 36.9. Sodium 135, potassium 4.7, chloride 98, carbon dioxide 26, anion gap 16, BUN 23, creatinine 3.3, GFR 14, POC glucose 175, random glucose 193, calcium 9.2, phosphorus 4.7, and magnesium 2. Total bilirubin 0.7, AST 27, ALT 23, alkaline phosphatase 242, total protein 7.4, albumin 3.4, globulin 4.1, albumin and globulin ratio 0.8. IMPRESSION AND PLAN: Respiratory failure, on noninvasive ventilation with carbon dioxide with hypertension and hypoxemia, chronic respiratory failure with acute onset, noncompliant with bilevel positive airway pressure use, renal failure, dialysis dependent, pulmonary retention, diastolic cardiac dysfunction. Pulmonary point of view, the patient is doing better pointed. Discussed with the nursing staff and continue supplemental oxygen titrate for pulse ox around 90. Keep head of bed elevated at 45%. Sleep apnea precaution. Continue to encourage bilevel positive airway pressure use at bedtime. Continue inhale bronchodilators. We will discontinue daytime stimulant. Physical evaluation and treat fall precaution. We will order atrial blood gas, chest x-ray and procalcitonin for the morning. Infectious Disease and Nephrology follow up. Critical care time more than 35 minutes. This patient was seen and examined with Dr. Arias, discussed assessment and plan as described above. Thank you for this consult and we will follow with you. Jonathan Price APN Joss Arias MD
--- NOTE | 2018-01-20 19:56 | PN ---
DATE: 01/20/2018 SUBJECTIVE: The patient is currently being transferred to telemetry, but she is still in CCU, bed 6. The patient is sleepy. She is arousable. The patient was tentatively scheduled for an extra ultrafiltration today. This, however, was not done. She appears to be stable. She will receive her routine dialysis tomorrow. MEDICATIONS: Medication list reviewed. The patient is currently on eye drops, Aranesp, azithromycin, DuoNeb, Ecotrin, Feosol, folic acid, subcutaneous heparin, insulin, Lipitor is on hold, Lopressor is on hold, p.r.n. Motrin, Neurontin, ProAmatine is on hold, Protonix, Renagel, Singulair is on hold, Solu-Medrol, vitamin A and D ointment , Xalatan eye drops, and Xanax which is on hold. OBJECTIVE: INTAKE/OUTPUT: Intake 1010 mL, output hemodialysis, but not charted. VITAL SIGNS: Blood pressure is 95/38. Respiratory rate is 26. Pulse is 117. Temperature is 98.2. HEENT: Exam shows her to be normocephalic, atraumatic. Conjunctivae are pink. Sclerae are nonicteric. NECK: Supple. No neck vein distention. CHEST: Clear to auscultation and percussion with scattered rhonchi. No rales or wheezing. CARDIOVASCULAR: Shows a regular rate and rhythm with MR/TR. No S3, no S4, no rub. ABDOMEN: Moderately obese. Minimal distention. Soft, nontender. Bowel sounds are normal. EXTREMITIES: Show puffiness and edema of her upper extremity, right greater than left. She does have nonpitting edema of her lower extremity. She has a right chest wall PermCath. LABORATORY DATA AND IMAGING STUDIES: CBC: White blood cell count 9.8, hemoglobin stable 12.1, platelet count is 252,000. Last blood gas from 01/18/2018 showed a pH of 7.24, pCO2 of 50, and pO2 of 81. Chemistries showed BUN of 22, with a creatinine of 3.3. Electrolytes are normal. Glucose 193. Calcium 9.2, phosphorus 4.7, magnesium 2. Alkaline phosphatase 242 with normal liver enzymes. Microbiology, all cultures were negative. ASSESSMENT: 1. Status post altered mental status secondary to likely CO2 narcosis. The patient had been using Bilevel Positive Airway Pressure at night successfully, but occasionally she will take the mask off. Currently, she appears to be stable. 2. History of end-stage renal disease. The patient will continue Friday, Friday, Friday dialysis. We have been supporting the patient's blood pressure with ProAmatine prior to dialysis. 3. History of arteriosclerotic heart disease, status post percutaneous transluminal coronary angioplasty stent, history of cardiomyopathy, ejection fraction on last check was 50% with mitral regurgitation/tricuspid regurgitation, all stable. 4. History of anemia. Hemoglobin is currently acceptable in the 12 range. This will assist in maintaining the patient's blood pressure during dialysis. Aranesp will be given on an as-needed basis. Her iron saturations have been normal. 5. History of secondary hyperparathyroidism. Last phosphorus level was 4.7. The patient will continue binder therapy. The patient will continue renal diet. 6. History of asthma, currently stable. The patient will continue inhalation therapy and steroids. 7. History of diabetes with both micro and macrovascular complications. The patient will continue on insulin therapy. 8. Mild volume overload. We will attempt to ultrafiltrate the patient with dialysis tomorrow. She was tentatively scheduled for an extra treatment today, but apparently this was not done. PLAN: 1. I will not request ultrafiltration now being late in the day, as the dialysis nurses have completed their workload. 2. The patient will receive her routine dialysis tomorrow with the attempt to increase ultrafiltration as tolerated. 3. Continue to maintain her respiratory status in an optimized state to avoid CO2 narcosis and mental status changes. 4. Continue binders and renal diet. 5. Complete course of IV antibiotic therapy. 6. Await transfer of the patient to telemetry. Nishant Mack MD MTDD
[2018-01-20] MEDS: Latanoprost 2.5 ml Opht Soln OD SCH (21:31)
[2018-01-21] MEDS: Albuterol-Ipratrop 3 mg / 0.5 (3 ml) UD IH SCH ×4 (02:15→20:00)
--- NOTE | 2018-01-21 03:43 | PN ---
DATE: 01/20/2018 SUBJECTIVE: The patient was seen and examined at the bedside on 01/20/2018, looking comfortable. Daughter was standing on the bedside also. The patient is awake and alert, but confused. Getting IV line is a problem; patient is on IV antibiotics. We consulted Infectious Disease Dr. Nation, change antibiotics to p.o. because of a PICC line in this lady, they wanted to reserve one extremity for fistula,a t the side , patient is a very hard stick. Length of time discussion done with the patient's nurse. Today, I have discussion done with patient's daughter. PHYSICAL EXAMINATION: VITAL SIGNS: Blood pressure 63/24, temperature 98.6, respiratory rate 18, heart rate 100, pulse oximetry 98%. HEENT: Head normocephalic, atraumatic. Eyes PERRLA. Extraocular muscles are intact. Conjunctivae clear. Nose patent. Mucous membranes are moist. NECK: Supple. No carotid bruits. No JVD or thyromegaly. CHEST: Bilaterally symmetrical. HEART: S1, S2 positive. LUNGS: Clear to auscultation. ABDOMEN: Soft. Bowel sounds present. No organomegaly. EXTREMITIES: Has trace edema in all four extremities. NEUROLOGIC: Patient is awake and alert, but confused. MEDICATIONS: Tylenol, DuoNeb, aspirin, azithromycin, eyedrops, ferrous sulfate, folic acid, gabapentin, morphine, heparin, Levemir insulin, Solu-Medrol. LABORATORY DATA: White blood cell 9.8, hemoglobin 12.1, hematocrit 39.4, platelet 252,000. Sodium 135, potassium 4.7, BUN 23, creatinine 3.3, glucose 175. AST 24, ALT 23. ASSESSMENT AND PLAN: Mrs. Debby Olguin is a 73 years old lady with multiple medical problems, renal insufficiency on hemodialysis; respiratory failure, on noninvasive ventilation with carbon dioxide retention with hyperventilation and hypoxemia, chronic respiratory failure with acute onset. The patient is noncompliant with bilevel positive airway pressure use, history of anemia, anxiety; keep head elevated at 45 degrees. Daughter is standing on the bedside. Length of time discussion done. The patient needs good physical therapy. Infectious Disease consult called. Appreciate Dr. Arias's input. Repeat labs. We will follow up. Taylor House MD MTDDamien
[2018-01-21] MEDS: Saliva Substitute 44.3 ML PO SCH ×4 (04:00→17:06)
[2018-01-21] MEDS: Vitamins A & D Oint UD Foilpak TOP SCH ×5 (04:23→17:06)
[2018-01-21] MEDS: Brimonidine 0.15% 50 DROP/5 ML BOTTLE OD SCH ×3 (05:22→22:01)
[2018-01-21 07:24] LABS: HEMOGLOBIN 13.7 g/dL (12.0-16.0); MEAN CELL VOLUME 115.6 fl (80.0-105.0); MEAN CORPUSCULAR HEMOGLOBIN 36.1 pg (25.0-35.0); MEAN CORPUSCULAR HGB CONC 31.3 g/dl (31.0-37.0); MEAN PLATELET VOLUME 9.9 fl (7.0-11.0); RBC 3.79 10^6/uL (3.5-6.1); RED CELL DISTRIBUTION WIDTH 16.3 % (11.5-14.5)
[2018-01-21 07:30] LABS: CALCIUM 9.1 mg/dL (8.4-10.5)
[2018-01-21] MEDS ORDERED: Digoxin 500 mcg/2ml (0.5 mg/2ml) Inj IVP ONE (07:48)
[2018-01-21] MEDS: Insulin Reg-LOW-Coverage SC SCH ×4 (08:04→21:50)
[2018-01-21] MEDS: Insulin Detemir 100 units/ml Vial (Levemir) SC SCH ×2 (08:04→21:50)
--- NOTE | 2018-01-21 09:11 | CP.PCM.CON ---
<Florencio Siddiqui - Last Filed: 01/21/18 13:41> History of Present Illness - History of Present Illness History of Present Illness: Infectious disease consult note for Dr. Aponte/Dr. Nation service - Audrey Siddiqui PGY3 HPI: Patient is a 73yo female with past medical history of ESRD on hemodialysis (MWF), DM, HTN, CAD s/p stenting (12/2014), diastolic CHF, COPD, CVA, legally blind and anemia who [place] [facility] report of dizziness and hypotension during her regularly scheduled dialysis sessions. On arrival to the ED, her SBP was noted to be in the 60's and she was treated with fluid resuscitation however subsequently developed acute hypercapneic respiratory distress and taken to the ICU for management. ID consulted for evaluation of possible infectious etiologies/abx management. She denied chest pain, palpitations, fever, chills, cough, abdominal pain, nausea, vomiting. 12point ROS as per above otherwise negative PMHx: as stated above PSHx: hysterectomy, CAD with stent placement (2014) Allergies: fish, morphine, oxycodone, penicillin Family Hx: Reviewed, non-contributory Social Hx: denies tobacco, alcohol and illicit drug use PMD: Dr. House Curbing Stonecutter: Dr. Snow Past Patient History - Infectious Disease Hx of Infectious Diseases: None - Tetanus Immunizations Tetanus Immunization: Unknown - Past Social History Smoking Status: Never Smoked - CARDIAC Hx Cardiac Disorders: Yes (CAD, coronary stent placement,) Hx Hypertension: Yes - PULMONARY Hx Chronic Obstructive Pulmonary Disease (COPD): Yes - NEUROLOGICAL HX Cerebrovascular Accident: Yes (but pt denies) - HEENT Hx HEENT Problems: Yes Hx Blind: Yes (legally blind) Hx Cataracts: Yes Hx Glaucoma: Yes Other/Comment: mastoiditis - RENAL Hx Renal Failure: Yes - ENDOCRINE/METABOLIC Hx Diabetes Mellitus Type 2: Yes - HEMATOLOGICAL/ONCOLOGICAL Hx Blood Disorders: Yes Hx Anemia: Yes (blood transfusion) Hx Shingles: Yes - INTEGUMENTARY Hx Dermatological Problems: Yes (ble cellulitis) Other/Comment: ble +2 pitting edema multiple skin discolorations, lue multiple skin discoloratins, old mid abd surgical scar, dark brown skin to b/l groin, brown discolored to b/l lower abd, optifoam over stage 2 split in skin over butt [id number] x 0.2cm - MUSCULOSKELETAL/RHEUMATOLOGICAL Hx Arthritis: Yes - GASTROINTESTINAL Hx Gastrointestinal Disorders: Yes (obese) - GENITOURINARY/GYNECOLOGICAL Hx Genitourinary Disorders: Yes (anuria) - PSYCHIATRIC Hx Psychophysiologic Disorder: Yes Hx Depression: Yes Hx Emotional Abuse: No Hx Physical Abuse: No Hx Substance Use: No - SURGICAL HISTORY Hx Cholecystectomy: Yes Hx Coronary Stent: Yes Hx Hysterectomy: Yes Other/Comment: lav graft removal graft, dialysis access rt upper chest wall - ANESTHESIA Hx Anesthesia Reactions: No Hx Malignant Hyperthermia: No Meds Allergies/Adverse Reactions: Allergies Allergy/AdvReac Type Severity Reaction Status Date / Time FISH Allergy URTICARIA Verified 01/12/18 17:40 morphine Allergy ANAPHYLAXIS Verified 01/12/18 17:40 oxycodone Allergy ANAPHYLAXIS Verified 01/12/18 17:40 Penicillins Allergy ANAPHYLAXIS Verified 01/12/18 17:40 steroids Allergy ANAPHYLAXIS Uncoded 01/12/18 17:40 - Medications Medications: Current Medications Acetaminophen (Tylenol 325mg Tab) 650 mg PO Q4H PRN PRN Reason: Fever >100.5 F Last Admin: 01/14/18 17:30 Dose: 650 mg Albuterol/Ipratropium (Duoneb 3 Mg/0.5 Mg (3 Ml) Ud) 3 ml IH Q6H [facility] Last Admin: 01/21/18 07:21 Dose: 3 ml Alprazolam (Xanax) 0.25 mg PO BID PRN; Protocol PRN Reason: Agitation Stop: 01/23/18 18:01 Last Admin: 01/21/18 04:25 Dose: 0.25 mg Aspirin (Ecotrin) 81 mg PO DAILY [facility] Last Admin: 01/20/18 11:38 Dose: 81 mg Atorvastatin Calcium (Lipitor) 20 mg PO DIN [facility] Last Admin: 01/17/18 19:37 Dose: Not Given Brimonidine Tartrate (Alphagan P 0.15% Opht) 0 drop OD Q8 [facility] Last Admin: 01/21/18 05:22 Dose: 1 drop Darbepoetin Jovi (Aranesp) 60 mcg IVP Fr@1000 [facility] Last Admin: 01/16/18 09:27 Dose: 60 mcg Doxycycline Hyclate (Doryx) 100 mg PO Q12 [facility]; Protocol Stop: 12/12/18 22:01 Last Admin: 01/20/18 21:35 Dose: 100 mg Ferrous Sulfate (Feosol) 324 mg PO DAILY [facility] Last Admin: 01/20/18 11:35 Dose: Not Given Folic Acid (Folic Acid) 1 mg PO DAILY [facility] Last Admin: 01/18/18 14:57 Dose: Not Given Folic Acid (Folic Acid) 1 mg IVP DAILY [facility] Last Admin: 01/20/18 18:04 Dose: 1 mg Gabapentin (Neurontin) 100 mg PO DAILY [facility]; Protocol Last Admin: 01/20/18 11:38 Dose: 100 mg Heparin Sodium (Porcine) (Heparin) 5,000 units SC Q12 [facility]; Protocol Last Admin: 01/20/18 21:31 Dose: 5,000 units Ibuprofen (Motrin Tab) 400 mg PO Q6H PRN PRN Reason: Pain, moderate (4-7) Last Admin: 01/20/18 21:34 Dose: 400 mg Insulin Detemir (Levemir) 15 unit SC [facility] Last Admin: 01/21/18 08:04 Dose: 15 units Insulin Human Regular (Humulin R Low) 0 [facility]; Protocol Last Admin: 01/21/18 08:04 Dose: 2 unit Latanoprost (Xalatan Opht) 0 ml OD HS [facility] Last Admin: 01/20/18 21:31 Dose: 1 ml Methylprednisolone (Solu-Medrol) 20 mg IVP Q12 [facility] Last Admin: 01/20/18 22:49 Dose: Not Given Metoprolol Tartrate (Lopressor) 12.5 mg PO Q12 [facility] Last Admin: 01/18/18 14:59 Dose: Not Given Midodrine (Proamatine) 10 mg PO TID [facility] Last Admin: 01/20/18 18:02 Dose: 10 mg Montelukast Sodium (Singulair) 10 mg PO HS [facility] Last Admin: 01/17/18 22:15 Dose: Not Given Pantoprazole Sodium (Protonix Inj) 40 mg IVP DAILY [facility] Last Admin: 01/20/18 11:40 Dose: 40 mg Saliva Substitute (Saliva Substitute) 0 ml PO Q6 [facility] Last Admin: 01/21/18 05:23 Dose: 1 ml Sevelamer HCl (Renagel) 1,600 mg PO WM [facility] Last Admin: 01/18/18 12:00 Dose: Not Given Vitamin A (Vitamin A & D Oint Ud Foilpak) 1 ea TOP Q4 [facility] Last Admin: 01/21/18 08:06 Dose: 1 ea Physical Exam - Constitutional Appears: Chronically Ill - Head Exam Head Exam: ATRAUMATIC, NORMOCEPHALIC - Eye Exam Eye Exam: EOMI, PERRL - ENT Exam ENT Exam: Mucous Membranes Moist - Respiratory Exam Respiratory Exam: absent: Rales, Rhonchi, Wheezes - Cardiovascular Exam Cardiovascular Exam: +S1, +S2. absent: Clicks, Gallop, Rubs - GI/Abdominal Exam GI & Abdominal Exam: Distended, Soft. absent: Firm, Guarding, Rebound, Tenderness - Neurological Exam Neurological exam: Alert, Oriented x3 - Psychiatric Exam Psychiatric exam: Normal Affect, Normal Mood - Skin Skin Exam: Dry, Intact, Normal Color, Warm Results - Vital Signs Recent Vital Signs: Last Vital Signs Temp 97.2 F L 01/21/18 04:00 Pulse 96 H 01/21/18 08:54 Resp 39 H 01/21/18 06:13 BP 134/92 H 01/21/18 04:38 Pulse Ox 96 01/21/18 04:00 - Labs Result Diagrams: 01/21/18 06:55 01/21/18 06:55 Labs: Laboratory Results - last 24 hr 01/20/18 01/21/18 01/21/18 07:49 06:55 06:55 WBC 11.0 RBC 3.79 Hgb 13.7 Hct 43.8 MCV 115.6 H MCH 36.1 H MCHC 31.3 RDW 16.3 H Plt Count 289 MPV 9.9 Sodium 134 Potassium 4.8 Chloride 98 Carbon Dioxide 24 Anion Gap 17 BUN 35 H Creatinine 4.0 H Est GFR ( Amer) 13 Est GFR (Non-Af Amer) 11 POC Glucose (mg/dL) 175 H Random Glucose 177 H Calcium 9.1 Assessment & Plan - Assessment and Plan (Free Text) Plan: 73yo female with history of ESRD on hemodialysis (MWF), DM, HTN, CAD s/p stenting (12/2014), diastolic CHF, COPD, CVA, legally blind and anemia [place] [facility] [place] hypotension in the setting of acute hypercapneic respiratory distress resolved hypercapneic respiratory distress COPD exacerbation hypotension ESRD on HD (MWF) diastolic CHF DM type2 CAD -Pancultures including procalcitonin are pending -MRSA screen negative -CXR reviewed; revealed linear infiltrates in both upper lobes unchanged from prior CXR -afebrile, no leukocytosis -Continue with doxcycyline pending culture/sensitivity -Continue with BiPAP as tolerated -f/u nephrology recommendations regarding hypotension during dialysis sessions Patient seen and case discussed/reviewed with attending, Dr. Aponte <Darryl Aponte - Last Filed: 01/21/18 22:24> Meds - Medications Medications: Current Medications Acetaminophen (Tylenol 325mg Tab) 650 mg PO Q4H PRN PRN Reason: Fever >100.5 F Last Admin: 01/14/18 17:30 Dose: 650 mg Albuterol/Ipratropium (Duoneb 3 Mg/0.5 Mg (3 Ml) Ud) 3 ml IH Q6H [facility] Last Admin: 01/21/18 20:00 Dose: 3 ml Alprazolam (Xanax) 0.25 mg PO BID PRN; Protocol PRN Reason: Agitation Stop: 01/23/18 18:01 Last Admin: 01/21/18 21:52 Dose: 0.25 mg Aspirin (Ecotrin) 81 mg PO DAILY [facility] Last Admin: 01/21/18 12:54 Dose: 81 mg Atorvastatin Calcium (Lipitor) 20 mg PO DIN [facility] Last Admin: 01/17/18 19:37 Dose: Not Given Brimonidine Tartrate (Alphagan P 0.15% Opht) 0 drop OD Q8 [facility] Last Admin: 01/21/18 22:01 Dose: Not Given Darbepoetin Jovi (Aranesp) 60 mcg IVP Fr@1000 [facility] Last Admin: 01/16/18 09:27 Dose: 60 mcg Doxycycline Hyclate (Doryx) 100 mg PO Q12 [facility]; Protocol Stop: 01/28/18 22:01 Last Admin: 01/21/18 21:51 Dose: 100 mg Ferrous Sulfate (Feosol) 324 mg PO DAILY [facility] Last Admin: 01/21/18 12:56 Dose: 324 mg Folic Acid (Folic Acid) 1 mg PO DAILY [facility] Last Admin: 01/21/18 13:15 Dose: 1 mg Gabapentin (Neurontin) 100 mg PO DAILY [facility]; Protocol Last Admin: 01/21/18 12:57 Dose: 100 mg Heparin Sodium (Porcine) (Heparin) 5,000 units SC Q12 [facility]; Protocol Last Admin: 01/21/18 21:51 Dose: 5,000 units Ibuprofen (Motrin Tab) 400 mg PO Q6H PRN PRN Reason: Pain, moderate (4-7) Last Admin: 01/20/18 21:34 Dose: 400 mg Insulin Detemir (Levemir) 15 unit SC [facility] Last Admin: 01/21/18 21:50 Dose: 15 units Insulin Human Regular (Humulin R Low) 0 units SC [facility]; Protocol Last Admin: 01/21/18 21:50 Dose: Not Given Latanoprost (Xalatan Opht) 0 ml OD HS [facility] Last Admin: 01/21/18 22:01 Dose: Not Given Methylprednisolone (Solu-Medrol) 20 mg IVP DAILY [facility] Metoprolol Tartrate (Lopressor) 12.5 mg PO Q12 [facility] Last Admin: 01/18/18 14:59 Dose: Not Given Midodrine (Proamatine) 10 mg PO TID [facility] Last Admin: 01/21/18 21:51 Dose: 10 mg Montelukast Sodium (Singulair) 10 mg PO HS [facility] Last Admin: 01/17/18 22:15 Dose: Not Given Ondansetron HCl (Zofran Inj) 4 mg IVP Q6H PRN PRN Reason: Nausea/Vomiting Last Admin: 01/21/18 13:18 Dose: 4 mg Pantoprazole Sodium (Protonix Inj) 40 mg IVP DAILY [facility] Last Admin: 01/21/18 12:58 Dose: 40 mg Saliva Substitute (Saliva Substitute) 0 ml PO Q6 [facility] Last Admin: 01/21/18 17:06 Dose: 1 ml Sevelamer HCl (Renagel) 1,600 mg PO WM [facility] Last Admin: 01/18/18 12:00 Dose: Not Given Verapamil HCl (Verapamil Inj) 2.5 mg IVP Q6H PRN PRN Reason: for heart rate >130 Vitamin A (Vitamin A & D Oint Ud Foilpak) 1 ea TOP Q4 [facility] Last Admin: 01/21/18 17:06 Dose: 1 ea Results - Vital Signs Recent Vital Signs: Last Vital Signs Temp 97.2 F L 01/21/18 04:00 Pulse 87 01/21/18 17:59 Resp 12 12/05/18 17:59 BP 73/41 L 01/21/18 18:00 Pulse Ox 92 L 01/21/18 17:59 - Labs Result Diagrams: 01/21/18 06:55 01/21/18 06:55 Labs: Laboratory Results - last 24 hr 01/20/18 01/20/18 01/21/18 20:00 22:02 06:55 WBC RBC Hgb Hct MCV MCH MCHC RDW Plt Count MPV Sodium Potassium Chloride Carbon Dioxide Anion Gap BUN Creatinine Est GFR ( Amer) Est GFR (Non-Af Amer) POC Glucose (mg/dL) 203 H Random Glucose Calcium Procalcitonin 0.53 H 0.61 H 01/21/18 01/21/18 06:55 06:55 WBC 11.0 RBC 3.79 Hgb 13.7 Hct 43.8 MCV 115.6 H MCH 36.1 H MCHC 31.3 RDW 16.3 H Plt Count 289 MPV 9.9 Sodium 134 Potassium 4.8 Chloride 98 Carbon Dioxide 24 Anion Gap 17 BUN 35 H Creatinine 4.0 H Est GFR ( Amer) 13 Est GFR (Non-Af Amer) 11 POC Glucose (mg/dL) Random Glucose 177 H Calcium 9.1 Procalcitonin Assessment & Plan - Assessment and Plan (Free Text) Plan: Infectious diseases Attending Physician Attestation Patient seen and examined, discussed with director medical affairs. I have reviewed the patient's history of present illness, past medical, social, personal and family histories, pertinent physical exam findings, course so far in this hospital admission, pertinent laboratory and imaging results. I agree with the above findings, assessment and plan. In addition, we have started Doxycycline for this patient with probable acute COPD exacerbation, presenting with CO2 narcosis. PCT is slightly elevated but patient has renal failure therefore PCT level is unreliable. Will monitor clinically.
[2018-01-21 09:18] VITALS: PULSE 112
[2018-01-21] MEDS: MethylPREDNISolone 40 mg Vial IVP SCH (12:58)
--- NOTE | 2018-01-21 15:59 | PN ---
DATE: 01/21/2018 REASON FOR CONSULTATION: Followup, cardiac evaluation, CO2 narcosis, hypoxemia, moved to ICU, altered mental status. SUBJECTIVE: The patient is having dialysis, is still screaming, heart rate 120, given a STAT dose of dig. PHYSICAL EXAMINATION: GENERAL: Not in apparent distress, lying flat on the bed, off and on. VITAL SIGNS: Heart rate 120, blood pressure 130/80. HEENT: PERRLA, intact. NECK: Supple. No carotid bruits or thyromegaly. CHEST: Clear to auscultation. HEART: S1 and S2 regular. ABDOMEN: Soft. EXTREMITIES: Clubbing, cyanosis negative. LABORATORY DATA: Blood workup as follows. Her WBC 11, hemoglobin 13, hematocrit 43.8, platelet count 289. Chemistry showed sodium 130, potassium 4.8, chloride 98, carbon dioxide 24, BUN 30, and creatinine 4. IMPRESSION: A 73-year-old female with a past medical history significant for morbid obesity, end-stage renal disease; on dialysis, history of coronary artery disease, status post percutaneous transluminal coronary angioplasty in 2014, admitted with respiratory distress, on continuous positive airway pressure, but the patient used to pull the continuous positive airway pressure, went into CO2 narcosis, moved to intensive care unit, very much less on Precedex for agitation, which is off now. Recent echocardiogram shows preserved left ventricular function. RECOMMENDATIONS: Aggressive pulmonary treatment, close followup. The patient is very noncompliant and got into CO2 narcosis. CVA status relatively is stable and needs close followup from pulmonary point of view and encouraged to continue noninvasive ventilator. Continue beta rossana. Continue aspirin, continue ferrous sulfate, continue DVT prophylaxis. We will give one dose of dig just to control the heart rate. That patient can complete the dialysis. Heart rate is 120. Continue low dose beta rossana and we will put verapamil 2.5 IV every 6 hours for heart rate more than 120. Overall, the patient's condition is critical and long-term prognosis and is guarded. We will follow with you. Also considered DNR and DNI. Thank you for providing us the opportunity in taking care of the patient, Sharif Guardado. Joss Bah MD
[2018-01-21] MEDS: Azithromycin 250 MG in Sodium Chloride 0.9% 250 ML IVPB SCH (17:07)
--- NOTE | 2018-01-21 18:18 | PN ---
DATE: 01/21/2018 SUBJECTIVE: She is lying in the bed. Nursing staff at bedside. Had some nausea and vomiting this morning. Overall feels better though. Cough is better. Breathing is better. Not very compliant with the noninvasive ventilation. No hemoptysis. No hematemesis. No hematuria. No diarrhea. Does have trace leg swelling. OBJECTIVE: VITAL SIGNS: Temperature is 98, heart rate 102, respiratory rate is 20 to 30, blood pressure 93/50, pulse ox 92% on nasal cannula. HEENT: Moist mucous membranes. Crowded airway. NECK: Supple. No JVD. Short thick neck. LUNGS: Have a prolonged expiratory phase wheezing. HEART: S1 and S2. ABDOMEN: Soft, nontender. No organomegaly. EXTREMITIES: Does have a trace edema. NEUROLOGIC: Awake and follows simple command. LABORATORY DATA: Shows hemoglobin 13.7, hematocrit 43.8, WBC 11, platelet count is 289. Blood gases show pH 7.24, pCO2 of 50, pO2 of 80; this is on 01/18/2018. Sodium 134, potassium 4.8, chloride 98, bicarbonate 24, BUN 35, creatinine 4, glucose 177, calcium is 9.1. TSH 0.61. IMPRESSION AND PLAN: Upper respiratory failure requiring noninvasive ventilation, history of hypertension, renal failure, dialysis dependent, also a component of dementia. Case discussed with nursing staff at bedside. We will continue the current noninvasive ventilation especially at nighttime. Keep head 45 degrees. Decrease Solu-Medrol to 20 daily. Gastric prophylaxis. Deep vein thrombosis prophylaxis. Continue aggressive dialysis, out of bed to chair, physical therapy. Can be transferred out of intensive care unit to Telemetry. Thank you and we will follow with you. Joss Arias MD
[2018-01-21] MEDS: Latanoprost 2.5 ml Opht Soln OD SCH (22:01)
--- NOTE | 2018-01-21 23:07 | PN ---
DATE: 01/21/2018 SUBJECTIVE: The patient is seen lying in bed in the ICU. She is sleeping comfortably. She does not appear to be in any kind of distress at present. She had dialysis earlier today. During the dialysis and during the first hour, the pressure was very low. It was as low as 72/53, but later it came up. During the second hour, it was 93/50. PHYSICAL EXAMINATION: GENERAL: Obese elderly lady lying in bed in the ICU. VITAL SIGNS: Blood pressure 80/39, heart rate 88, respiratory rate 18, temperature 97.2. HEENT: Normocephalic, atraumatic, positive pallor. NECK: Supple. No JVD. CARDIOPULMONARY: S1, S1. Regular rate and rhythm. No murmur. No rub. LUNGS: Bilateral equal entry, bilateral rhonchi, no rales. ABDOMEN: Obese, distended, soft, nontender, bowel sounds present. EXTREMITIES: No lower extremity edema. LABORATORY DATA: WBC 11, hemoglobin 13.7, hematocrit 44, platelets 289. Sodium 134, potassium 4.8, chloride 98, CO2 24, BUN 35, creatinine 4.0, glucose 177, calcium 9.1. Blood culture, no growth. CURRENT MEDICATIONS: Aranesp 60, doxycycline 100 every 12 hours, Ecotrin 81, Feosol 324, folic acid 1 mg, heparin, insulin, Levemir, Lipitor, Lopressor, Motrin, Neurontin, ProAmatine, Protonix, Renagel Singulair, Solu-Medrol, Tylenol, verapamil, Xanax, Zofran. ASSESSMENT: 1. Altered mental status, still groggy and confused. Status post CO2 narcosis. 2. End-stage renal disease. 3. Coronary artery disease, history of percutaneous transluminal coronary angioplasty and stent, cardiomyopathy. 4. Chronic anemia. 5. Secondary hyperparathyroidism. 6. Asthma. 7. Non-insulin dependent diabetes mellitus. 8. Chronic hypotension. 9. Volume overload. PLAN: 1.. Stable dialysis today. 2. We will arrange for ultrafiltration tomorrow. 3. Continue BiPAP as needed. 4. Continue phosphate binders. 5. Continue antibiotic therapy as per ID recommendations. 6. . Marlyn Snow MD [facility] # [id number]
[2018-01-22] MEDS: Albuterol-Ipratrop 3 mg / 0.5 (3 ml) UD IH SCH ×2 (02:30→08:06)
--- NOTE | 2018-01-22 03:17 | PN ---
DATE: 01/21/2018 SUBJECTIVE: The patient is a 73-year-old female. The patient was seen and examined at the bedside on 01/21/2018. The patient was having BiPAP, is not able to give me review of systems, but looks like comfortable, sleepy. No fever. No chills. No hematuria. No hematochezia. No coughing. No shortness of breath. PHYSICAL EXAMINATION VITAL SIGNS: Temperature 98, heart rate 102, respiratory rate 20, blood pressure 93/50, pulse oximetry 92% on nasal cannula. HEENT: Head: Normocephalic, atraumatic. Eyes: PERRLA. Extraocular muscles are intact. Eyes are closed. Nose patent. Mucous membranes moist. NECK: Supple. No carotid bruit. No JVD or thyromegaly. CHEST: Bilaterally symmetrical. HEART: S1 and S2 positive. LUNGS: Clear to auscultation. ABDOMEN: Soft. Bowel sounds present. No organomegaly. EXTREMITIES: No edema. No cyanosis. NEUROLOGICAL: The patient is sleepy, arousable. LABORATORY DATA: Hemoglobin 13.7, hematocrit 43.8, white blood cell 11, platelets 289. Sodium 134, potassium 4.8, BUN 35, creatinine 4, glucose 177. TSH 0.61. MEDICATIONS: Reviewed by me. ASSESSMENT AND PLAN: Ms. Debby Olguin, 73-year-old female, with upper respiratory failure, requiring noninvasive ventilation; history of hypertension; renal failure, getting dialysis 3 times a week; history of hypotension. Continue tapering dose of steroid. History of anemia. Gastrointestinal, deep venous thrombosis prophylaxis. Repeat labs. We will follow up. Taylor House MD
[2018-01-22] MEDS ORDERED: Dextrose 50% SYRINGE Inj (50 ml) IV ONE (07:06)
[2018-01-22] MEDS: Insulin Reg-LOW-Coverage SC SCH ×3 (07:35→18:44)
[2018-01-22] MEDS: Insulin Detemir 100 units/ml Vial (Levemir) SC SCH (08:52)
[2018-01-22] MEDS ORDERED: MethylPREDNISolone 40 mg Vial IVP SCH (10:00)
[2018-01-22] MEDS ORDERED: POLYETHYLENE GLYCOL 3350 17 GM/Dose PACKET PO SCH (11:30)
--- NOTE | 2018-01-22 13:16 | PN ---
DATE: 01/22/2018 REFERRING PHYSICIAN: Taylor House MD SUBJECTIVE: The patient is lying in bed, sleepy. Nursing staff reports that patient had one episode of vomiting yesterday, one episode of vomiting last night while BiPAP was in place and another episode of vomiting this morning. The patient also noted to be hypotensive. PHYSICAL EXAMINATION: GENERAL: No acute distress. VITAL SIGNS: Blood pressure 87/52, pulse 83, oxygen saturation 96%, respirations 15. HEENT: Moist mucous membranes. Crowded airway. NECK: Supple. No JVD. Short and thick. LUNGS: Rhonchi bilaterally. No wheezing. CARDIOVASCULAR: S1 and S2 audible. ABDOMEN: Distended, nontender. No organomegaly. EXTREMITIES: Trace edema. NEUROLOGIC: Asleep, opening eyes to stimuli. LABORATORY DATA: Reviewed. POC glucose 92. MEDICATIONS: Reviewed. Tylenol 650 mg every 4 hours p.r.n. for fever, DuoNeb 3 mL inhalation every six hours, Xanax 0.25 mg twice a day as needed, aspirin 81 mg daily, Lipitor 20 mg at dinner, Alphagan eyedrops every 8 hours, Aranesp 60 mcg IV push daily, doxycycline 100 mg every 12 hours, ferrous sulphate 324 mg daily, folic acid 1 mg daily, gabapentin 100 mg daily, heparin 5000 units every 12 hours, Motrin 400 mg every 6 hours as needed, Levemir 15 units morning and at bedtime, Humulin R sliding scale, latanoprost at bedtime, Solu-Medrol 20 mg IV push daily, metoprolol tartrate 12.5 mg every 12 hours, midodrine 10 mg three times a day, Singulair 10 mg at bedtime, Zofran 4 mg IV push every 6 hours p.r.n., Protonix 40 mg IV push daily, MiraLax 17 g p.o. daily, saliva substitute every 6 hours, Renagel 1600 mg, vitamin A and D ointment topically every 4 hours to affected area. IMPRESSION AND PLAN: Upper respiratory failure requiring noninvasive ventilation, history of hypertension, renal failure dialysis dependent. Also a component of dementia. Discussed case with nursing staff at bedside. Instructed nursing staff to medicate the patient with as needed Zofran as ordered and midodrine. Monitor blood pressure. Continue to encourage noninvasive ventilation especially at bedtime. Keep head of bed elevated 45 degrees. Gastric prophylaxis. Deep venous thrombosis prophylaxis. Physical therapy, out of bed to chair. We will order obstructive series as nursing staff report the patient's last bowel movement was Friday and abdomen appears distended. This patient was seen and examined with Dr. Arias. Discussed assessment and plan as described above. Thank you for this consult and we will follow with you. Jonathan Price APN Joss Arias MD MTDDamien
[2018-01-22] MEDS ORDERED: Amiodarone 150 mg/D5W 100 ml 150 MG/100 ML BAG ONE (13:22)
[2018-01-22] MEDS ORDERED: Midazolam 2 MG/2 ML VIAL ONE (13:29)
[2018-01-22] MEDS ORDERED: NOREPINEPHRINE BIT/0.9 % NACL 4 MG/250 ML BAG IV PRN (13:56)
[2018-01-22 14:00] LABS: BASO # 0.02 K/mm3 (0.0-2.0); GRAN # 39.95 (1.4-6.5); HEMOGLOBIN 13.6 g/dL (12.0-16.0); LYMPH # 3.5 (1.2-3.4); LYMPH % 7.9 % (22.0-35.0); MEAN CELL VOLUME 114.8 fl (80.0-105.0); MEAN CORPUSCULAR HEMOGLOBIN 35.3 pg (25.0-35.0); MEAN CORPUSCULAR HGB CONC 30.8 g/dl (31.0-37.0); MEAN PLATELET VOLUME 10.3 fl (7.0-11.0); MONO # 1.4 (0.1-0.6); MONO % 3.1 % (1.0-6.0); PLATELET COUNT 226 10^3/uL (120.0-450.0); RBC 3.85 10^6/uL (3.5-6.1); RED CELL DISTRIBUTION WIDTH 19.5 % (11.5-14.5)
[2018-01-22 14:02] LABS: ARTERIAL BLOOD GAS HCO3 19.2 mmol/L (21-28); ARTERIAL BLOOD GAS HEMOGLOBIN 11.6 g/dL (11.7-17.4); ARTERIAL BLOOD GAS O2 CAPACITY 15.8 mL/dl (16-24); ARTERIAL BLOOD GAS O2 CONTENT 8.9 ML/dl (15-23); ARTERIAL BLOOD GAS O2 SAT 56.4 % (95-98); ARTERIAL BLOOD GAS PCO2 71 mm/Hg (35-45); ARTERIAL BLOOD GAS TCO2 21.4 mmol.L (22-28)
[2018-01-22 14:08] LABS: ARTERIAL BLOOD GAS PH 7.04 (7.35-7.45)
[2018-01-22 14:10] LABS: WHITE BLOOD COUNT 44.9 10^3/uL (4.5-11.0)
[2018-01-22] MEDS ORDERED: Sodium Bicarbonate (8.4%) 50 Meq Syringe IVP ONE ×3 (14:11→22:03)
[2018-01-22 14:12] LABS: ARTERIAL BLOOD GAS HCO3 20.6 mmol/L (21-28); ARTERIAL BLOOD GAS O2 CAPACITY 17.8 mL/dl (16-24); ARTERIAL BLOOD GAS O2 CONTENT 11.6 ML/dl (15-23); ARTERIAL BLOOD GAS O2 SAT 65.3 % (95-98); ARTERIAL BLOOD GAS PCO2 76 mm/Hg (35-45); ARTERIAL BLOOD GAS TCO2 22.9 mmol.L (22-28)
[2018-01-22 14:14] LABS: ALB/GLOB RATIO 0.8 (1.1-1.8); ALBUMIN 2.7 g/dL (3.0-4.8); CALCIUM 7.8 mg/dL (8.4-10.5)
[2018-01-22 14:18] LABS: ARTERIAL BLOOD GAS PH 7.04 (7.35-7.45)
[2018-01-22 14:18] LABS: BAND 2 % (0-2); LYMPHOCYTE 1 % (22.0-35.0); MONOCYTE 2 % (1.0-6.0); NEUTROPHIL 95 % (50.0-70.0); NUCLEATED RED BLOOD CELL 7 %
[2018-01-22 14:19] LABS: PLATELET ESTIMATE NORMAL (NORMAL)
[2018-01-22] MEDS ORDERED: Etomidate 20 mg/10ml Inj IVP STA (14:21)
[2018-01-22 14:26] LABS: INR 2.16
[2018-01-22] MEDS ORDERED: Etomidate 20 mg/10ml Inj IV ONE ×2 (14:27)
--- NOTE | 2018-01-22 14:45 | CP.PCM.PCO ---
Physician Communication Note - Physician Communication Note Physician Communication Note: respiratory failure intubated today, ?hematemesis today, positive vomiting
[2018-01-22] MEDS ORDERED: Midazolam 2 MG/2 ML VIAL IVP ONE ×2 (14:52→15:39)
--- NOTE | 2018-01-22 15:29 | RAD ---
Date of service: 01/22/2018 HISTORY: s/p code COMPARISON: 01/20/2018 FINDINGS: LUNGS: No active pulmonary disease. PLEURA: No significant pleural effusion identified, no pneumothorax apparent. CARDIOVASCULAR: Aortic calcification Moderate cardiomegaly mild to moderate vascular congestion OSSEOUS STRUCTURES: No significant abnormalities. VISUALIZED UPPER ABDOMEN: Normal. OTHER FINDINGS: Central lines and tubes unchanged IMPRESSION: Moderate cardiomegaly and moderate vascular congestion
[2018-01-22] MEDS ORDERED: Midazolam 100 mg/100ml in NS 100 MG/100 ML SOL IV PRN (15:39)
--- NOTE | 2018-01-22 16:33 | PN ---
DATE: 01/22/2018 REASON FOR CONSULTATION: Followup, cardiac evaluation, CO2 narcosis, hypoxemia, altered mental status, end-stage renal disease, history of coronary artery disease. SUBJECTIVE: The patient is currently in ICU 129 bed 6, having dialysis. Denies any chest pain, shortness of breath, or any palpations. PHYSICAL EXAMINATION: GENERAL: Not in apparent distress. VITAL SIGNS: Temperature afebrile, heart rate 85, blood pressure 85/44. HEENT: PERRLA. Extraocular muscles intact. NECK: Supple. No carotid bruits or thyromegaly. CHEST: Clear to auscultation. HEART: S1 and S2 regular. ABDOMEN: Soft. EXTREMITIES: Clubbing, cyanosis negative. LABORATORY DATA: Blood workup: WBC as of yesterday 11, hemoglobin , platelet count 289. Chemistry showed sodium 134, potassium 4.8, chloride 98, carbon dioxide 24, anion gap 17, BUN 35, and creatinine 4. IMPRESSION: This is a 73-year-old female with a past medical history significant for end-stage renal disease; on dialysis, morbid obesity, coronary artery disease, status post percutaneous transluminal coronary angioplasty in 2014, admitted with shortness of breath and went into respiratory distress Impending respiratory failure, CO2 narcosis, moved to intensive care unit. Now the patient is much better, less agitated and having dialysis today. RECOMMENDATIONS: Aggressive treatment, encouraged the patient to use the CPAP, continue dialysis and continue low dose beta rossana, p.r.n. verapamil 2.5 every 6 hours p.r.n. for heart rate more than 120. Overall, the patient's condition is critical and long-term prognosis is guarded. DNR should be discussed with the family. Thank you Dr. House for providing us the opportunity in taking care of the patient, Sharif Guardado. Joss Bah MD cc: Taylor House MD MTDDamien
[2018-01-22] MEDS ORDERED: Vancomycin 1gm in NS 250ml 1 GM/250 ML BAG IVPB STA (17:43)
[2018-01-22 17:54] VITALS: BP 82/37; O2SAT 83
[2018-01-22] MEDS ORDERED: Dextrose 50% SYRINGE Inj (50 ml) IVP ONE (17:56)
--- NOTE | 2018-01-22 18:03 | CARD ---
APPROVED REPORT Date of service: 01/22/2018 EKG Measurement Heart [id number] <Conclusion> A fib with RVR Right axis deviation Possible Right ventricular hypertrophy Cannot rule out Anterior infarct, age undetermined Abnormal ECG
--- NOTE | 2018-01-22 18:12 | CP.CCUPN ---
<Young Sommers - Last Filed: 01/22/18 17:57> CCU Subjective - Physician Review Subjective (Free Text): Young Sommers, PGY1 ICU Progress Note for Dr. Garrett Patient was previously admitted to ICU for hypercapnic respiratory failure which resolved; she was transferred as a result. Today, she was noted to have hematemesis early this morning/afternoon. Patient also had a dialysis session for fluid removal: approximately 1 hour and 45 minutes of treatment. Patient could not tolerate the full session due to vomiting during session. Later in the afternoon at 1:03 pm, patient was noted to be unresponsive in PEA. Code Blue was called and ACLS protocol was initiated. Patient was given bicarb and x3 epinephrine during the code. Patient was also intubated with placement of NG tube due to significant hematemesis during the code. Patient subsequently coded again in which she had x2 epinephrine and bicarb. ROSC was obtained after a total of 2 Code Blues, at 1:55 pm. Blood pressure was difficult to obtain. Multiple manual readings were attempted but to no success. Insertion of arterial-line and TLC catheter at the femoral artery/vein were attempted multiple times however were unsuccessful due to difficult access and body habitus. Patent was also moving throughout the procedure, making it very difficult. Patient was stabilized and is currently on PRVC ventilation settings. ROS not obtained due to patient's critical condition. 01/22/18 18:12 CCU Objective - Vital Signs / Intake & Output Vital Signs (Last 4 hours): Vital Signs Pulse Resp BP Pulse Ox 01/22/18 17:30 116 H 82/37 L 83 L 01/22/18 17:01 108 H 130/92 H 58 L 01/22/18 17:00 114 H 93 L 01/22/18 16:43 116 H 01/22/18 16:42 111 H 01/22/18 16:41 105 H 01/22/18 16:40 119 H 01/22/18 16:39 115 H 01/22/18 16:38 166 H 01/22/18 16:37 120 H 01/22/18 16:31 100/69 01/22/18 16:30 110 H 87 L 01/22/18 16:04 80/32 L 01/22/18 16:02 144 H 122/79 87 L 01/22/18 16:00 120 H 83 L 01/22/18 15:32 89 80/32 L 73 L 01/22/18 15:02 121 H 90/62 L 80 L 01/22/18 15:00 125 H 80 L 01/22/18 14:37 105 H 11 L 82 L 01/22/18 14:30 124/57 L 01/22/18 14:29 118 H 01/22/18 14:15 108 H 112/46 L 83 L 01/22/18 14:04 112 H 01/22/18 14:03 129 H 01/22/18 14:02 131/96 H 01/22/18 14:01 117 H 01/22/18 14:00 113 H 01/22/18 13:59 137 H 01/22/18 13:58 128 H - Physical Exam Physical Exam Limitations: Positive for: Clinical Condition Head: Positive for: Atraumatic, Normocephalic Mouth: Positive for: Other (Hematemesis ) Respiratory/Chest: Negative for: Wheezes, Rales, Rhonchi Cardiovascular: Positive for: Regular Rate and Rhythm Abdomen: Positive for: Distention Upper Extremity: Positive for: Edema (Diffuse swelling of the upper extremity), Other (right AV graft ). Negative for: Cyanosis Lower Extremity: Negative for: Edema Skin: Positive for: Warm, Dry. Negative for: Rashes Psychiatric: Negative for: Alert, Oriented x 3 - Medications Active Medications: Active Medications Generic Name Dose Route Start Last Admin Trade Name Freq PRN Reason Stop Dose Admin Acetaminophen 650 mg 01/12/18 22:07 01/14/18 17:30 Tylenol 325mg Tab PO 650 mg Q4H PRN Administration Fever >100.5 F Albuterol/Ipratropium 3 ml 01/20/18 10:00 01/22/18 08:06 Duoneb 3 Mg/0.5 Mg (3 Ml) Ud IH 3 ml Q6H [place]UGUSTIN Administration Alprazolam 0.25 mg 01/16/18 12:02 01/21/18 21:52 Xanax PO 01/23/18 18:01 0.25 mg BID PRN Administration Agitation Protocol Aspirin 81 mg 01/20/18 11:00 01/21/18 12:54 Ecotrin PO 81 mg DAILY A[place]IN Administration Atorvastatin Calcium 20 mg 01/13/18 17:00 01/17/18 19:37 Lipitor PO Not Given DIN [place]IN Brimonidine Tartrate 0 drop 01/13/18 06:00 01/21/18 22:01 Alphagan P 0.15% Opht OD Not Given Q8 [facility] Darbepoetin Jovi 60 mcg 01/16/18 10:00 01/16/18 09:27 Aranesp IVP 60 mcg Fr@1000 [place]IN Administration Dextrose 50 ml 01/22/18 17:56 Dextrose 50% Inj IVP 01/22/18 17:57 ONCE ONE Doxycycline Hyclate 100 mg 01/20/18 22:00 01/22/18 10:09 Doryx PO 01/28/18 22:01 100 mg Q12 [place]IN Administration Protocol Ferrous Sulfate 324 mg 01/13/18 10:00 01/22/18 10:11 Feosol PO 324 mg DAILY [place]IN Administration Folic Acid 1 mg 01/21/18 12:45 01/22/18 10:11 Folic Acid PO 1 mg DAILY [place] Administration Gabapentin 100 mg 01/13/18 10:00 01/22/18 10:11 Neurontin PO 100 mg DAILY [place]IN Administration Protocol Heparin Sodium (Porcine) 5,000 units 01/17/18 22:00 01/21/18 21:51 Heparin SC 5,000 units Q12 [place]IN Administration Protocol Hydrocortisone Sodium Succinate 50 mg 01/22/18 14:00 Solu-Cortef IVP Q6H [facility] NOREPINEPHRINE BIT/0.9 % NACL 4 mg in 250 mls @ 15 mls/hr 01/22/18 13:56 Levophed 4 Mg/ 250 Ml Ns Premixed IV .[id number] PRN TITRATE PER MD ORDER Protocol 4 MCG/MIN Midazolam 100 mg/100ml in NS 100 mg in 100 mls @ 1 mls/hr 01/22/18 15:39 01/22/18 16:05 Midazolam 100 Mg/100ml In Ns IV 1 mg/hr .Q24H PRN 1 mls/hr Agitation Administration Protocol 1 MG/HR Vasopressin 20 units/ Sodium 101 mls @ 9.09 mls/hr 01/22/18 15:45 01/22/18 16:04 Chloride IV 9.09 mls/hr .Q11H7M [place]IN Administration Protocol 0.03 U/MIN Meropenem/Sodium Chloride 500 mg in 50 mls @ 12.5 mls/hr 01/22/18 22:00 Merrem Iv 500 Mg/Ns 50 Ml IVPB 01/31/18 22:01 Q8 [place]IN Protocol Vancomycin HCl 1 gm in 250 mls @ 167 mls/hr 01/22/18 17:43 Vancomycin 1gm IVPB 01/22/18 19:12 STAT STA Protocol Ibuprofen 400 mg 01/15/18 12:57 01/20/18 21:34 Motrin Tab PO 400 mg Q6H PRN Administration Pain, moderate (4-7) Insulin Detemir 15 unit 01/19/18 11:18 01/22/18 08:52 Levemir SC 15 units ACBHS A[place]IN Administration Insulin Human Regular 0 units 01/13/18 07:30 01/22/18 07:35 Humulin R Low SC Not Given ACHS [facility] Protocol Latanoprost 0 ml 01/13/18 22:00 01/21/18 22:01 Xalatan Opht OD Not Given HS [facility] Methylprednisolone 20 mg 01/22/18 10:00 Solu-Medrol IVP DAILY [facility] Metoprolol Tartrate 12.5 mg 01/13/18 10:00 01/18/18 14:59 Lopressor PO Not Given Q12 [place] Midodrine 10 mg 01/13/18 10:00 01/22/18 10:09 Proamatine PO 10 mg TID [place]IN Administration Montelukast Sodium 10 mg 01/12/18 22:30 01/17/18 22:15 Singulair PO Not Given HS [place] Ondansetron HCl 4 mg 01/21/18 13:06 01/21/18 13:18 Zofran Inj IVP 4 mg Q6H PRN Administration Nausea/Vomiting Pantoprazole Sodium 40 mg 01/18/18 10:00 01/21/18 12:58 Protonix Inj IVP 40 mg DAILY [place] Administration Polyethylene Glycol 17 gm 01/22/18 11:30 Miralax PO DAILY [place] Saliva Substitute 0 ml 01/18/18 18:00 01/21/18 17:06 Saliva Substitute PO 1 ml Q6 [place] Administration Sevelamer HCl 1,600 mg 01/13/18 08:00 01/18/18 12:00 Renagel PO Not Given WM [place] Verapamil HCl 2.5 mg 01/21/18 09:58 Verapamil Inj IVP Q6H PRN for heart rate >130 Vitamin A 1 ea 01/18/18 16:00 12/05/18 17:06 Vitamin A & D Oint Ud Foilpak TOP 1 ea Q4 [place]IN Administration - Patient Studies Lab Studies: Microbiology Studies 01/20/18 20:00 Blood Culture - Preliminary Blood NO GROWTH AFTER 24 HOURS 01/20/18 19:45 Blood Culture - Preliminary Blood NO GROWTH AFTER 24 HOURS Lab Studies 01/22/18 01/22/18 01/22/18 Range/Units 14:45 14:15 14:10 WBC (4.5-11.0) 10^3/uL RBC (3.5-6.1) 10^6/uL Hgb (12.0-16.0) g/dL Hct (36.0-48.0) % MCV (80.0-105.0) fl MCH (25.0-35.0) pg MCHC (31.0-37.0) g/dl RDW (11.5-14.5) % Plt Count (120.0-450.0) 10^3/uL MPV (7.0-11.0) fl Gran % (50.0-68.0) % Lymph % (Auto) (22.0-35.0) % [place] % (Auto) (1.0-6.0) % Eos % (Auto) (1.5-5.0) % Baso % (Auto) (0.0-3.0) % Gran # (1.4-6.5) Lymph # (Auto) (1.2-3.4) [place] # (Auto) (0.1-0.6) Eos # (Auto) (0.0-0.7) Baso # (Auto) (0.0-2.0) K/mm3 Corrected WBC (Man) (4.5-11.0) K/mm3 Neutrophils % (Manual) (50.0-70.0) % Band Neutrophils % (0-2) % Lymphocytes % (Manual) (22.0-35.0) % Monocytes % (Manual) (1.0-6.0) % Nucleated RBC % % Platelet Evaluation (NORMAL) PT (9.4-12.5) SECONDS INR pCO2 76 H* (35-45) mm/Hg pO2 36.0 L* (80-100) mm/Hg HCO3 20.6 L (21-28) mmol/L ABG pH 7.04 L* (7.35-7.45) ABG Total CO2 22.9 (22-28) mmol.L ABG O2 Saturation 65.3 L (95-98) % ABG O2 Content 11.6 L (15-23) ML/dl ABG Base Excess -11.2 L (-2.0-3.0) mmol/L ABG Hemoglobin 13.0 (11.7-17.4) g/dL ABG Carboxyhemoglobin 1.9 H (0.5-1.5) % POC ABG HHb (Measured) 33.8 H (0-5) % ABG Methemoglobin 0.7 (0.0-3.0) % ABG O2 Capacity 17.8 (16-24) mL/dl Hgb O2 Saturation 63.5 L (95.0-98.0) % FiO2 100.0 % Sodium (132-148) mmol/L Potassium (3.6-5.0) mmol/L Chloride (98-107) mmol/L Carbon Dioxide (21-33) mmol/L Anion Gap (10-20) BUN (7-21) mg/dL Creatinine (0.7-1.2) mg/dl Est GFR ( Amer) Est GFR (Non-Af Amer) POC Glucose (mg/dL) (65-110) mg/dL Random Glucose (70-110) mg/dL Calcium (8.4-10.5) mg/dL Total Bilirubin (0.2-1.3) mg/dL AST (14-36) U/L ALT (7-56) U/L Alkaline Phosphatase (38-126) U/L Total Protein (5.8-8.3) g/dL Albumin (3.0-4.8) g/dL Globulin gm/dL Albumin/Globulin Ratio (1.1-1.8) Blood Type O POSITIVE Blood Type Confirm O POSITIVE Antibody Screen Negative BBK History Checked No verified bt 01/22/18 01/22/18 01/22/18 Range/Units 13:50 13:30 13:30 WBC (4.5-11.0) 10^3/uL RBC (3.5-6.1) 10^6/uL Hgb (12.0-16.0) g/dL Hct (36.0-48.0) % MCV (80.0-105.0) fl MCH (25.0-35.0) pg MCHC (31.0-37.0) g/dl RDW (11.5-14.5) % Plt Count (120.0-450.0) 10^3/uL MPV (7.0-11.0) fl Gran % (50.0-68.0) % Lymph % (Auto) (22.0-35.0) % [place] % (Auto) (1.0-6.0) % Eos % (Auto) (1.5-5.0) % Baso % (Auto) (0.0-3.0) % Gran # (1.4-6.5) Lymph # (Auto) (1.2-3.4) [place] # (Auto) (0.1-0.6) Eos # (Auto) (0.0-0.7) Baso # (Auto) (0.0-2.0) K/mm3 Corrected WBC (Man) (4.5-11.0) K/mm3 Neutrophils % (Manual) (50.0-70.0) % Band Neutrophils % (0-2) % Lymphocytes % (Manual) (22.0-35.0) % Monocytes % (Manual) (1.0-6.0) % Nucleated RBC % % Platelet Evaluation (NORMAL) PT 25.0 H (9.4-12.5) SECONDS INR 2.16 pCO2 71 H* (35-45) mm/Hg pO2 31.0 L* (80-100) mm/Hg HCO3 19.2 L (21-28) mmol/L ABG pH 7.04 L* (7.35-7.45) ABG Total CO2 21.4 L (22-28) mmol.L ABG O2 Saturation 56.4 L (95-98) % ABG O2 Content 8.9 L (15-23) ML/dl ABG Base Excess -12.0 L (-2.0-3.0) mmol/L ABG Hemoglobin 11.6 L (11.7-17.4) g/dL ABG Carboxyhemoglobin 1.5 (0.5-1.5) % POC ABG HHb (Measured) 42.5 H (0-5) % ABG Methemoglobin 1.0 (0.0-3.0) % ABG O2 Capacity 15.8 L (16-24) mL/dl Hgb O2 Saturation 54.9 L (95.0-98.0) % FiO2 100.0 % Sodium 139 (132-148) mmol/L Potassium 3.1 L (3.6-5.0) mmol/L Chloride 103 (98-107) mmol/L Carbon Dioxide 23 (21-33) mmol/L Anion Gap 16 (10-20) BUN 25 H (7-21) mg/dL Creatinine 2.7 H (0.7-1.2) mg/dl Est GFR ( Amer) 21 Est GFR (Non-Af Amer) 17 POC Glucose (mg/dL) (65-110) mg/dL Random Glucose 86 (70-110) mg/dL Calcium 7.8 L (8.4-10.5) mg/dL Total Bilirubin 0.9 (0.2-1.3) mg/dL AST 26 (14-36) U/L ALT 23 (7-56) U/L Alkaline Phosphatase 178 H D (38-126) U/L Total Protein 6.1 (5.8-8.3) g/dL Albumin 2.7 L (3.0-4.8) g/dL Globulin 3.5 gm/dL Albumin/Globulin Ratio 0.8 L (1.1-1.8) Blood Type Blood Type Confirm Antibody Screen BBK History Checked 01/22/18 01/22/18 01/22/18 Range/Units 13:30 12:09 11:01 WBC 44.9 H* D (4.5-11.0) 10^3/uL RBC 3.85 (3.5-6.1) 10^6/uL Hgb 13.6 (12.0-16.0) g/dL Hct 44.2 (36.0-48.0) % MCV 114.8 H (80.0-105.0) fl MCH 35.3 H (25.0-35.0) pg MCHC 30.8 L (31.0-37.0) g/dl RDW 19.5 H (11.5-14.5) % Plt Count 226 (120.0-450.0) 10^3/uL MPV 10.3 (7.0-11.0) fl Gran % 89.0 H (50.0-68.0) % Lymph % (Auto) 7.9 L (22.0-35.0) % [place] % (Auto) 3.1 (1.0-6.0) % Eos % (Auto) 0.0 L (1.5-5.0) % Baso % (Auto) 0.0 (0.0-3.0) % Gran # 39.95 H (1.4-6.5) Lymph # (Auto) 3.5 H (1.2-3.4) [place] # (Auto) 1.4 H (0.1-0.6) Eos # (Auto) 0.0 (0.0-0.7) Baso # (Auto) 0.02 (0.0-2.0) K/mm3 Corrected WBC (Man) 42.0 H (4.5-11.0) K/mm3 Neutrophils % (Manual) 95 H (50.0-70.0) % Band Neutrophils % 2 (0-2) % Lymphocytes % (Manual) 1 L (22.0-35.0) % Monocytes % (Manual) 2 (1.0-6.0) % Nucleated RBC % 7 % Platelet Evaluation Normal (NORMAL) PT (9.4-12.5) SECONDS INR pCO2 (35-45) mm/Hg pO2 (80-100) mm/Hg HCO3 (21-28) mmol/L ABG pH (7.35-7.45) ABG Total CO2 (22-28) mmol.L ABG O2 Saturation (95-98) % ABG O2 Content (15-23) ML/dl ABG Base Excess (-2.0-3.0) mmol/L ABG Hemoglobin (11.7-17.4) g/dL ABG Carboxyhemoglobin (0.5-1.5) % POC ABG HHb (Measured) (0-5) % ABG Methemoglobin (0.0-3.0) % ABG O2 Capacity (16-24) mL/dl Hgb O2 Saturation (95.0-98.0) % FiO2 % Sodium (132-148) mmol/L Potassium (3.6-5.0) mmol/L Chloride (98-107) mmol/L Carbon Dioxide (21-33) mmol/L Anion Gap (10-20) BUN (7-21) mg/dL Creatinine (0.7-1.2) mg/dl Est GFR ( Amer) Est GFR (Non-Af Amer) POC Glucose (mg/dL) 87 96 (65-110) mg/dL Random Glucose (70-110) mg/dL Calcium (8.4-10.5) mg/dL Total Bilirubin (0.2-1.3) mg/dL AST (14-36) U/L ALT (7-56) U/L Alkaline Phosphatase (38-126) U/L Total Protein (5.8-8.3) g/dL Albumin (3.0-4.8) g/dL Globulin gm/dL Albumin/Globulin Ratio (1.1-1.8) Blood Type Blood Type Confirm Antibody Screen BBK History Checked 01/22/18 01/21/18 01/21/18 Range/Units 07:15 22:25 17:14 WBC (4.5-11.0) 10^3/uL RBC (3.5-6.1) 10^6/uL Hgb (12.0-16.0) g/dL Hct (36.0-48.0) % MCV (80.0-105.0) fl MCH (25.0-35.0) pg MCHC (31.0-37.0) g/dl RDW (11.5-14.5) % Plt Count (120.0-450.0) 10^3/uL MPV (7.0-11.0) fl Gran % (50.0-68.0) % Lymph % (Auto) (22.0-35.0) % [place] % (Auto) (1.0-6.0) % Eos % (Auto) (1.5-5.0) % Baso % (Auto) (0.0-3.0) % Gran # (1.4-6.5) Lymph # (Auto) (1.2-3.4) [place] # (Auto) (0.1-0.6) Eos # (Auto) (0.0-0.7) Baso # (Auto) (0.0-2.0) K/mm3 Corrected WBC (Man) (4.5-11.0) K/mm3 Neutrophils % (Manual) (50.0-70.0) % Band Neutrophils % (0-2) % Lymphocytes % (Manual) (22.0-35.0) % Monocytes % (Manual) (1.0-6.0) % Nucleated RBC % % Platelet Evaluation (NORMAL) PT (9.4-12.5) SECONDS INR pCO2 (35-45) mm/Hg pO2 (80-100) mm/Hg HCO3 (21-28) mmol/L ABG pH (7.35-7.45) ABG Total CO2 (22-28) mmol.L ABG O2 Saturation (95-98) % ABG O2 Content (15-23) ML/dl ABG Base Excess (-2.0-3.0) mmol/L ABG Hemoglobin (11.7-17.4) g/dL ABG Carboxyhemoglobin (0.5-1.5) % POC ABG HHb (Measured) (0-5) % ABG Methemoglobin (0.0-3.0) % ABG O2 Capacity (16-24) mL/dl Hgb O2 Saturation (95.0-98.0) % FiO2 % Sodium (132-148) mmol/L Potassium (3.6-5.0) mmol/L Chloride (98-107) mmol/L Carbon Dioxide (21-33) mmol/L Anion Gap (10-20) BUN (7-21) mg/dL Creatinine (0.7-1.2) mg/dl Est GFR ( Amer) Est GFR (Non-Af Amer) POC Glucose (mg/dL) 92 98 89 (65-110) mg/dL Random Glucose (70-110) mg/dL Calcium (8.4-10.5) mg/dL Total Bilirubin (0.2-1.3) mg/dL AST (14-36) U/L ALT (7-56) U/L Alkaline Phosphatase (38-126) U/L Total Protein (5.8-8.3) g/dL Albumin (3.0-4.8) g/dL Globulin gm/dL Albumin/Globulin Ratio (1.1-1.8) Blood Type Blood Type Confirm Antibody Screen BBK History Checked 01/21/18 01/20/18 01/20/18 Range/Units 11:39 22:02 17:12 WBC (4.5-11.0) 10^3/uL RBC (3.5-6.1) 10^6/uL Hgb (12.0-16.0) g/dL Hct (36.0-48.0) % MCV (80.0-105.0) fl MCH (25.0-35.0) pg MCHC (31.0-37.0) g/dl RDW (11.5-14.5) % Plt Count (120.0-450.0) 10^3/uL MPV (7.0-11.0) fl Gran % (50.0-68.0) % Lymph % (Auto) (22.0-35.0) % [place] % (Auto) (1.0-6.0) % Eos % (Auto) (1.5-5.0) % Baso % (Auto) (0.0-3.0) % Gran # (1.4-6.5) Lymph # (Auto) (1.2-3.4) [place] # (Auto) (0.1-0.6) Eos # (Auto) (0.0-0.7) Baso # (Auto) (0.0-2.0) K/mm3 Corrected WBC (Man) (4.5-11.0) K/mm3 Neutrophils % (Manual) (50.0-70.0) % Band Neutrophils % (0-2) % Lymphocytes % (Manual) (22.0-35.0) % Monocytes % (Manual) (1.0-6.0) % Nucleated RBC % % Platelet Evaluation (NORMAL) PT (9.4-12.5) SECONDS INR pCO2 (35-45) mm/Hg pO2 (80-100) mm/Hg HCO3 (21-28) mmol/L ABG pH (7.35-7.45) ABG Total CO2 (22-28) mmol.L ABG O2 Saturation (95-98) % ABG O2 Content (15-23) ML/dl ABG Base Excess (-2.0-3.0) mmol/L ABG Hemoglobin (11.7-17.4) g/dL ABG Carboxyhemoglobin (0.5-1.5) % POC ABG HHb (Measured) (0-5) % ABG Methemoglobin (0.0-3.0) % ABG O2 Capacity (16-24) mL/dl Hgb O2 Saturation (95.0-98.0) % FiO2 % Sodium (132-148) mmol/L Potassium (3.6-5.0) mmol/L Chloride (98-107) mmol/L Carbon Dioxide (21-33) mmol/L Anion Gap (10-20) BUN (7-21) mg/dL Creatinine (0.7-1.2) mg/dl Est GFR ( Amer) Est GFR (Non-Af Amer) POC Glucose (mg/dL) 114 H 203 H 206 H (65-110) mg/dL Random Glucose (70-110) mg/dL Calcium (8.4-10.5) mg/dL Total Bilirubin (0.2-1.3) mg/dL AST (14-36) U/L ALT (7-56) U/L Alkaline Phosphatase (38-126) U/L Total Protein (5.8-8.3) g/dL Albumin (3.0-4.8) g/dL Globulin gm/dL Albumin/Globulin Ratio (1.1-1.8) Blood Type Blood Type Confirm Antibody Screen BBK History Checked 01/20/18 Range/Units 11:36 WBC (4.5-11.0) 10^3/uL RBC (3.5-6.1) 10^6/uL Hgb (12.0-16.0) g/dL Hct (36.0-48.0) % MCV (80.0-105.0) fl MCH (25.0-35.0) pg MCHC (31.0-37.0) g/dl RDW (11.5-14.5) % Plt Count (120.0-450.0) 10^3/uL MPV (7.0-11.0) fl Gran % (50.0-68.0) % Lymph % (Auto) (22.0-35.0) % [place] % (Auto) (1.0-6.0) % Eos % (Auto) (1.5-5.0) % Baso % (Auto) (0.0-3.0) % Gran # (1.4-6.5) Lymph # (Auto) (1.2-3.4) [place] # (Auto) (0.1-0.6) Eos # (Auto) (0.0-0.7) Baso # (Auto) (0.0-2.0) K/mm3 Corrected WBC (Man) (4.5-11.0) K/mm3 Neutrophils % (Manual) (50.0-70.0) % Band Neutrophils % (0-2) % Lymphocytes % (Manual) (22.0-35.0) % Monocytes % (Manual) (1.0-6.0) % Nucleated RBC % % Platelet Evaluation (NORMAL) PT (9.4-12.5) SECONDS INR pCO2 (35-45) mm/Hg pO2 (80-100) mm/Hg HCO3 (21-28) mmol/L ABG pH (7.35-7.45) ABG Total CO2 (22-28) mmol.L ABG O2 Saturation (95-98) % ABG O2 Content (15-23) ML/dl ABG Base Excess (-2.0-3.0) mmol/L ABG Hemoglobin (11.7-17.4) g/dL ABG Carboxyhemoglobin (0.5-1.5) % POC ABG HHb (Measured) (0-5) % ABG Methemoglobin (0.0-3.0) % ABG O2 Capacity (16-24) mL/dl Hgb O2 Saturation (95.0-98.0) % FiO2 % Sodium (132-148) mmol/L Potassium (3.6-5.0) mmol/L Chloride (98-107) mmol/L Carbon Dioxide (21-33) mmol/L Anion Gap (10-20) BUN (7-21) mg/dL Creatinine (0.7-1.2) mg/dl Est GFR ( Amer) Est GFR (Non-Af Amer) POC Glucose (mg/dL) 207 H (65-110) mg/dL Random Glucose (70-110) mg/dL Calcium (8.4-10.5) mg/dL Total Bilirubin (0.2-1.3) mg/dL AST (14-36) U/L ALT (7-56) U/L Alkaline Phosphatase (38-126) U/L Total Protein (5.8-8.3) g/dL Albumin (3.0-4.8) g/dL Globulin gm/dL Albumin/Globulin Ratio (1.1-1.8) Blood Type Blood Type Confirm Antibody Screen BBK History Checked Laboratory Results - last 24 hr 01/20/18 01/20/18 01/20/18 11:36 17:12 22:02 WBC RBC Hgb Hct MCV MCH MCHC RDW Plt Count MPV Gran % Lymph % (Auto) [place] % (Auto) Eos % (Auto) Baso % (Auto) Gran # Lymph # (Auto) [place] # (Auto) Eos # (Auto) Baso # (Auto) Corrected WBC (Man) Neutrophils % (Manual) Band Neutrophils % Lymphocytes % (Manual) Monocytes % (Manual) Nucleated RBC % Platelet Evaluation PT INR pCO2 pO2 HCO3 ABG pH ABG Total CO2 ABG O2 Saturation ABG O2 Content ABG Base Excess ABG Hemoglobin ABG Carboxyhemoglobin POC ABG HHb (Measured) ABG Methemoglobin ABG O2 Capacity Hgb O2 Saturation FiO2 Sodium Potassium Chloride Carbon Dioxide Anion Gap BUN Creatinine Est GFR ( Amer) Est GFR (Non-Af Amer) POC Glucose (mg/dL) 207 H 206 H 203 H Random Glucose Calcium Total Bilirubin AST ALT Alkaline Phosphatase Total Protein Albumin Globulin Albumin/Globulin Ratio Blood Type Blood Type Confirm Antibody Screen BBK History Checked 01/21/18 01/21/18 01/21/18 11:39 17:14 22:25 WBC RBC Hgb Hct MCV MCH MCHC RDW Plt Count MPV Gran % Lymph % (Auto) [place] % (Auto) Eos % (Auto) Baso % (Auto) Gran # Lymph # (Auto) [place] # (Auto) Eos # (Auto) Baso # (Auto) Corrected WBC (Man) Neutrophils % (Manual) Band Neutrophils % Lymphocytes % (Manual) Monocytes % (Manual) Nucleated RBC % Platelet Evaluation PT INR pCO2 pO2 HCO3 ABG pH ABG Total CO2 ABG O2 Saturation ABG O2 Content ABG Base Excess ABG Hemoglobin ABG Carboxyhemoglobin POC ABG HHb (Measured) ABG Methemoglobin ABG O2 Capacity Hgb O2 Saturation FiO2 Sodium Potassium Chloride Carbon Dioxide Anion Gap BUN Creatinine Est GFR ( Amer) Est GFR (Non-Af Amer) POC Glucose (mg/dL) 114 H 89 98 Random Glucose Calcium Total Bilirubin AST ALT Alkaline Phosphatase Total Protein Albumin Globulin Albumin/Globulin Ratio Blood Type Blood Type Confirm Antibody Screen BBK History Checked 01/22/18 01/22/18 01/22/18 07:15 11:01 12:09 WBC RBC Hgb Hct MCV MCH MCHC RDW Plt Count MPV Gran % Lymph % (Auto) [place] % (Auto) Eos % (Auto) Baso % (Auto) Gran # Lymph # (Auto) [place] # (Auto) Eos # (Auto) Baso # (Auto) Corrected WBC (Man) Neutrophils % (Manual) Band Neutrophils % Lymphocytes % (Manual) Monocytes % (Manual) Nucleated RBC % Platelet Evaluation PT INR pCO2 pO2 HCO3 ABG pH ABG Total CO2 ABG O2 Saturation ABG O2 Content ABG Base Excess ABG Hemoglobin ABG Carboxyhemoglobin POC ABG HHb (Measured) ABG Methemoglobin ABG O2 Capacity Hgb O2 Saturation FiO2 Sodium Potassium Chloride Carbon Dioxide Anion Gap BUN Creatinine Est GFR ( Amer) Est GFR (Non-Af Amer) POC Glucose (mg/dL) 92 96 87 Random Glucose Calcium Total Bilirubin AST ALT Alkaline Phosphatase Total Protein Albumin Globulin Albumin/Globulin Ratio Blood Type Blood Type Confirm Antibody Screen BBK History Checked 01/22/18 01/22/18 01/22/18 13:30 13:30 13:30 WBC 44.9 H* D RBC 3.85 Hgb 13.6 Hct 44.2 MCV 114.8 H MCH 35.3 H MCHC 30.8 L RDW 19.5 H Plt Count 226 MPV 10.3 Gran % 89.0 H Lymph % (Auto) 7.9 L [place] % (Auto) 3.1 Eos % (Auto) 0.0 L Baso % (Auto) 0.0 Gran # 39.95 H Lymph # (Auto) 3.5 H [place] # (Auto) 1.4 H Eos # (Auto) 0.0 Baso # (Auto) 0.02 Corrected WBC (Man) 42.0 H Neutrophils % (Manual) 95 H Band Neutrophils % 2 Lymphocytes % (Manual) 1 L Monocytes % (Manual) 2 Nucleated RBC % 7 Platelet Evaluation Normal PT 25.0 H INR 2.16 pCO2 pO2 HCO3 ABG pH ABG Total CO2 ABG O2 Saturation ABG O2 Content ABG Base Excess ABG Hemoglobin ABG Carboxyhemoglobin POC ABG HHb (Measured) ABG Methemoglobin ABG O2 Capacity Hgb O2 Saturation FiO2 Sodium 139 Potassium 3.1 L Chloride 103 Carbon Dioxide 23 Anion Gap 16 BUN 25 H Creatinine 2.7 H Est GFR ( Amer) 21 Est GFR (Non-Af Amer) 17 POC Glucose (mg/dL) Random Glucose 86 Calcium 7.8 L Total Bilirubin 0.9 AST 26 ALT 23 Alkaline Phosphatase 178 H D Total Protein 6.1 Albumin 2.7 L Globulin 3.5 Albumin/Globulin Ratio 0.8 L Blood Type Blood Type Confirm Antibody Screen BBK History Checked 01/22/18 01/22/18 01/22/18 13:50 14:10 14:15 WBC RBC Hgb Hct MCV MCH MCHC RDW Plt Count MPV Gran % Lymph % (Auto) [place] % (Auto) Eos % (Auto) Baso % (Auto) Gran # Lymph # (Auto) [place] # (Auto) Eos # (Auto) Baso # (Auto) Corrected WBC (Man) Neutrophils % (Manual) Band Neutrophils % Lymphocytes % (Manual) Monocytes % (Manual) Nucleated RBC % Platelet Evaluation PT INR pCO2 71 H* 76 H* pO2 31.0 L* 36.0 L* HCO3 19.2 L 20.6 L ABG pH 7.04 L* 7.04 L* ABG Total CO2 21.4 L 22.9 ABG O2 Saturation 56.4 L 65.3 L ABG O2 Content 8.9 L 11.6 L ABG Base Excess -12.0 L -11.2 L ABG Hemoglobin 11.6 L 13.0 ABG Carboxyhemoglobin 1.5 1.9 H POC ABG HHb (Measured) 42.5 H 33.8 H ABG Methemoglobin 1.0 0.7 ABG O2 Capacity 15.8 L 17.8 Hgb O2 Saturation 54.9 L 63.5 L FiO2 100.0 100.0 Sodium Potassium Chloride Carbon Dioxide Anion Gap BUN Creatinine Est GFR ( Amer) Est GFR (Non-Af Amer) POC Glucose (mg/dL) Random Glucose Calcium Total Bilirubin AST ALT Alkaline Phosphatase Total Protein Albumin Globulin Albumin/Globulin Ratio Blood Type O POSITIVE Blood Type Confirm Antibody Screen Negative BBK History Checked No verified bt 01/22/18 14:45 WBC RBC Hgb Hct MCV MCH MCHC RDW Plt Count MPV Gran % Lymph % (Auto) [place] % (Auto) Eos % (Auto) Baso % (Auto) Gran # Lymph # (Auto) [place] # (Auto) Eos # (Auto) Baso # (Auto) Corrected WBC (Man) Neutrophils % (Manual) Band Neutrophils % Lymphocytes % (Manual) Monocytes % (Manual) Nucleated RBC % Platelet Evaluation PT INR pCO2 pO2 HCO3 ABG pH ABG Total CO2 ABG O2 Saturation ABG O2 Content ABG Base Excess ABG Hemoglobin ABG Carboxyhemoglobin POC ABG HHb (Measured) ABG Methemoglobin ABG O2 Capacity Hgb O2 Saturation FiO2 Sodium Potassium Chloride Carbon Dioxide Anion Gap BUN Creatinine Est GFR ( Amer) Est GFR (Non-Af Amer) POC Glucose (mg/dL) Random Glucose Calcium Total Bilirubin AST ALT Alkaline Phosphatase Total Protein Albumin Globulin Albumin/Globulin Ratio Blood Type Blood Type Confirm O POSITIVE Antibody Screen BBK History Checked EKG/Cardiology Studies: Cardiology / EKG Studies 01/22/18 14:43 EKG [ELECTROCARDIOGRAM] Stat Comment: Reason For Exam: s/p code Fingerstick Blood Sugar Results: 92 Review of Systems - Review of Systems Systems not reviewed;Unavailable: Acuity of Condition Critical Care Progress Note - Ventilator Checklist Head of Bed 30 Degrees: Yes Daily Sedation Vacation: Yes Daily Assessment of Readiness to Wean: Yes Daily Spontaneous Breathing Trial: Yes PUD Prophalyxis: Yes DVT Prophylaxis: Yes Oral Care with Chlorhexidine Gluconate {CHG}: Yes - Nutrition Nutrition: Nutrition Category Date Time Status Dysphagia/Modified Consistency Diet [DIET] Diets 01/20/18 Lunch Ordered Assessment/Plan - Assessment and Plan (Free Text) Assessment: Patient is a 73 year old F with PMHx of ESRD on hemodialysis (M/W/F), DM, HTN, CAD with stent placement (12/2014), and anemia, who presented to the ED from a dialysis center for evaluation of hypotension and dizziness. During hospital course, ASSISTED LIVING ASSISTANT was called for hypotension and lethargy. Patient was noted to be in hypercapnic respiratory failure. ICU was consulted for evaluation. Patient's hypercapic respiratory failure eventually resolved and patent was stable for transfer. However, on 01/22, patient had episodes of hematemesis s/p HD session and Code Blue was initiated twice for PEA, ROSC obtained. Plan: Neuro: - Unable to obtain mental stats due to patient's critical condition. - Intubated on PRVC ventilation. On sedation. Cardio: - Code Blue x2 on 01/22. Patient intubated. NG tube placed. Blood pressure was unable to be read. Attempt at A-line and TLC catheter in groin was unsuccessful due to body habitus. Patient remains full code. - Levophed and vaspressin was started temporarily, stress dose steroids for blood pressure control - Hx of HTN, CAD (stent placement), CHF-pEF, Aortic stenosis - Echo (12/10/17): EF 50%. Evidence of pulmonary hypertension. Pulm: - Hypercapnic Respiratory Failure 2/2 COPD Exacerbation - Intubated, on mechanical ventilation. Continue with PRVC vent settings. - Maintain SaO2 > 92% GI: - Hematemesis s/p HD sesson - Abdominal XR f/u - Protonix BID s/p hematemesis Heme: - H/H stable - monitor Renal: - HD session prior to Code Blue - Continue to monitor renal function - worsening - HD (M/W/F) Endo: - Hx of DM - ISS (low) - Accuchecks Dispo: Patient will be managed in the ICU s/p Code Blue x2 for PEA. Her code status remains Full Code. Overall prognosis is guarded. Case was discussed and reviewed with Attending Physician, Dr. Garrett <Santos Garrett - Last Filed: 01/22/18 19:09> CCU Objective - Vital Signs / Intake & Output Vital Signs (Last 4 hours): Vital Signs Temp Pulse BP Pulse Ox 01/22/18 17:30 116 H 82/37 L 83 L 01/22/18 17:01 108 H 130/92 H 58 L 01/22/18 17:00 114 H 93 L 01/22/18 16:43 116 H 01/22/18 16:42 111 H 01/22/18 16:41 105 H 01/22/18 16:40 119 H 01/22/18 16:39 115 H 01/22/18 16:38 166 H 01/22/18 16:37 120 H 01/22/18 16:31 100/69 01/22/18 16:30 110 H 87 L 01/22/18 16:04 80/32 L 01/22/18 16:02 144 H 122/79 87 L 01/22/18 16:00 97 F L 120 H 83 L 01/22/18 15:32 89 80/32 L 73 L 01/22/18 15:02 121 H 90/62 L 80 L Intake and Output (Last 8hrs): Intake & Output 01/22/18 01/22/18 01/22/18 06:59 14:59 22:59 Intake Total 15 Balance 15 Intake: IV 15 - Medications Active Medications: Active Medications Generic Name Dose Route Start Last Admin Trade Name Freq PRN Reason Stop Dose Admin Acetaminophen 650 mg 01/12/18 22:07 01/14/18 17:30 Tylenol 325mg Tab PO 650 mg Q4H PRN Administration Fever >100.5 F Albuterol/Ipratropium 3 ml 01/20/18 10:00 01/22/18 08:06 Duoneb 3 Mg/0.5 Mg (3 Ml) Ud IH 3 ml Q6H [place]UG[place]IN Administration Alprazolam 0.25 mg 01/16/18 12:02 01/21/18 21:52 Xanax PO 01/23/18 18:01 0.25 mg BID PRN Administration Agitation Protocol Aspirin 81 mg 01/20/18 11:00 01/22/18 10:00 Ecotrin PO Not Given DAILY [facility] Atorvastatin Calcium 20 mg 01/13/18 17:00 01/17/18 19:37 Lipitor PO Not Given DIN [facility] Brimonidine Tartrate 0 drop 01/13/18 06:00 01/21/18 22:01 Alphagan P 0.15% Opht OD Not Given Q8 [facility] Darbepoetin Jovi 60 mcg 01/16/18 10:00 01/16/18 09:27 Aranesp IVP 60 mcg Fr@1000 [place]IN Administration Doxycycline Hyclate 100 mg 01/20/18 22:00 01/22/18 10:09 Doryx PO 01/28/18 22:01 100 mg Q12 [place]IN Administration Protocol Ferrous Sulfate 324 mg 01/13/18 10:00 01/22/18 10:11 Feosol PO 324 mg DAILY [place] Administration Folic Acid 1 mg 01/21/18 12:45 01/22/18 10:11 Folic Acid PO 1 mg DAILY [place] Administration Gabapentin 100 mg 01/13/18 10:00 01/22/18 10:11 Neurontin PO 100 mg DAILY [place] Administration Protocol Heparin Sodium (Porcine) 5,000 units 01/17/18 22:00 01/22/18 10:00 Heparin SC 5,000 units Q12 [place]IN Administration Protocol Hydrocortisone Sodium Succinate 50 mg 01/22/18 14:00 01/22/18 18:52 Solu-Cortef IVP 50 mg Q6H [place]IN Administration NOREPINEPHRINE BIT/0.9 % NACL 4 mg in 250 mls @ 15 mls/hr 01/22/18 13:56 Levophed 4 Mg/ 250 Ml Ns Premixed IV .[id number] PRN TITRATE PER MD ORDER Protocol 4 MCG/MIN Midazolam 100 mg/100ml in NS 100 mg in 100 mls @ 1 mls/hr 01/22/18 15:39 01/22/18 18:48 Midazolam 100 Mg/100ml In Ns IV 2 mg/hr .Q24H PRN 2 mls/hr Agitation Titration Protocol 1 MG/HR Vasopressin 20 units/ Sodium 101 mls @ 9.09 mls/hr 01/22/18 15:45 01/22/18 16:04 Chloride IV 9.09 mls/hr .[id number] [place]IN Administration Protocol 0.03 U/MIN Meropenem/Sodium Chloride 500 mg in 50 mls @ 12.5 mls/hr 01/22/18 22:00 Merrem Iv 500 Mg/Ns 50 Ml IVPB 01/31/18 22:01 Q8 [place] Protocol Vancomycin HCl 1 gm in 250 mls @ 167 mls/hr 01/22/18 17:43 01/22/18 18:56 Vancomycin 1gm IVPB 01/22/18 19:12 167 mls/hr STAT STA Administration Protocol Ibuprofen 400 mg 01/15/18 12:57 01/20/18 21:34 Motrin Tab PO 400 mg Q6H PRN Administration Pain, moderate (4-7) Insulin Detemir 15 unit 01/19/18 11:18 01/22/18 08:52 Levemir SC 15 units ACBHS A[place]IN Administration Insulin Human Regular 0 units 01/13/18 07:30 01/22/18 18:44 Humulin R Low SC Not Given ACHS AUG[place]IN Protocol Latanoprost 0 ml 01/13/18 22:00 01/21/18 22:01 Xalatan Opht OD Not Given HS [place]IN Methylprednisolone 20 mg 01/22/18 10:00 01/22/18 10:00 Solu-Medrol IVP 20 mg DAILY [place] Administration Metoprolol Tartrate 12.5 mg 01/13/18 10:00 01/18/18 14:59 Lopressor PO Not Given Q12 [place] Midodrine 10 mg 01/13/18 10:00 01/22/18 10:09 Proamatine PO 10 mg TID [place]IN Administration Montelukast Sodium 10 mg 01/12/18 22:30 01/17/18 22:15 Singulair PO Not Given HS [place] Ondansetron HCl 4 mg 01/21/18 13:06 01/21/18 13:18 Zofran Inj IVP 4 mg Q6H PRN Administration Nausea/Vomiting Pantoprazole Sodium 40 mg 01/22/18 18:00 Protonix Inj IVP BID [place] Polyethylene Glycol 17 gm 01/22/18 11:30 Miralax PO DAILY [place] Saliva Substitute 0 ml 01/18/18 18:00 01/21/18 17:06 Saliva Substitute PO 1 ml Q6 [place] Administration Sevelamer HCl 1,600 mg 01/13/18 08:00 01/18/18 12:00 Renagel PO Not Given WM [place]IN Verapamil HCl 2.5 mg 01/21/18 09:58 Verapamil Inj IVP Q6H PRN for heart rate >130 Vitamin A 1 ea 01/18/18 16:00 01/21/18 17:06 Vitamin A & D Oint Ud Foilpak TOP 1 ea Q4 [place]IN Administration - Patient Studies Lab Studies: Microbiology Studies 01/20/18 20:00 Blood Culture - Preliminary Blood NO GROWTH AFTER 24 HOURS 01/20/18 19:45 Blood Culture - Preliminary Blood NO GROWTH AFTER 24 HOURS Lab Studies 01/22/18 01/22/18 01/22/18 Range/Units 14:45 14:15 14:10 WBC (4.5-11.0) 10^3/uL RBC (3.5-6.1) 10^6/uL Hgb (12.0-16.0) g/dL Hct (36.0-48.0) % MCV (80.0-105.0) fl MCH (25.0-35.0) pg MCHC (31.0-37.0) g/dl RDW (11.5-14.5) % Plt Count (120.0-450.0) 10^3/uL MPV (7.0-11.0) fl Gran % (50.0-68.0) % Lymph % (Auto) (22.0-35.0) % [place] % (Auto) (1.0-6.0) % Eos % (Auto) (1.5-5.0) % Baso % (Auto) (0.0-3.0) % Gran # (1.4-6.5) Lymph # (Auto) (1.2-3.4) [place] # (Auto) (0.1-0.6) Eos # (Auto) (0.0-0.7) Baso # (Auto) (0.0-2.0) K/mm3 Corrected WBC (Man) (4.5-11.0) K/mm3 Neutrophils % (Manual) (50.0-70.0) % Band Neutrophils % (0-2) % Lymphocytes % (Manual) (22.0-35.0) % Monocytes % (Manual) (1.0-6.0) % Nucleated RBC % % Platelet Evaluation (NORMAL) PT (9.4-12.5) SECONDS INR pCO2 76 H* (35-45) mm/Hg pO2 36.0 L* (80-100) mm/Hg HCO3 20.6 L (21-28) mmol/L ABG pH 7.04 L* (7.35-7.45) ABG Total CO2 22.9 (22-28) mmol.L ABG O2 Saturation 65.3 L (95-98) % ABG O2 Content 11.6 L (15-23) ML/dl ABG Base Excess -11.2 L (-2.0-3.0) mmol/L ABG Hemoglobin 13.0 (11.7-17.4) g/dL ABG Carboxyhemoglobin 1.9 H (0.5-1.5) % POC ABG HHb (Measured) 33.8 H (0-5) % ABG Methemoglobin 0.7 (0.0-3.0) % ABG O2 Capacity 17.8 (16-24) mL/dl Hgb O2 Saturation 63.5 L (95.0-98.0) % FiO2 100.0 % Sodium (132-148) mmol/L Potassium (3.6-5.0) mmol/L Chloride (98-107) mmol/L Carbon Dioxide (21-33) mmol/L Anion Gap (10-20) BUN (7-21) mg/dL Creatinine (0.7-1.2) mg/dl Est GFR ( Amer) Est GFR (Non-Af Amer) POC Glucose (mg/dL) (65-110) mg/dL Random Glucose (70-110) mg/dL Calcium (8.4-10.5) mg/dL Total Bilirubin (0.2-1.3) mg/dL AST (14-36) U/L ALT (7-56) U/L Alkaline Phosphatase (38-126) U/L Total Protein (5.8-8.3) g/dL Albumin (3.0-4.8) g/dL Globulin gm/dL Albumin/Globulin Ratio (1.1-1.8) Blood Type O POSITIVE Blood Type Confirm O POSITIVE Antibody Screen Negative BBK History Checked No verified bt 01/22/18 01/22/18 01/22/18 Range/Units 13:50 13:30 13:30 WBC (4.5-11.0) 10^3/uL RBC (3.5-6.1) 10^6/uL Hgb (12.0-16.0) g/dL Hct (36.0-48.0) % MCV (80.0-105.0) fl MCH (25.0-35.0) pg MCHC (31.0-37.0) g/dl RDW (11.5-14.5) % Plt Count (120.0-450.0) 10^3/uL MPV (7.0-11.0) fl Gran % (50.0-68.0) % Lymph % (Auto) (22.0-35.0) % [place] % (Auto) (1.0-6.0) % Eos % (Auto) (1.5-5.0) % Baso % (Auto) (0.0-3.0) % Gran # (1.4-6.5) Lymph # (Auto) (1.2-3.4) [place] # (Auto) (0.1-0.6) Eos # (Auto) (0.0-0.7) Baso # (Auto) (0.0-2.0) K/mm3 Corrected WBC (Man) (4.5-11.0) K/mm3 Neutrophils % (Manual) (50.0-70.0) % Band Neutrophils % (0-2) % Lymphocytes % (Manual) (22.0-35.0) % Monocytes % (Manual) (1.0-6.0) % Nucleated RBC % % Platelet Evaluation (NORMAL) PT 25.0 H (9.4-12.5) SECONDS INR 2.16 pCO2 71 H* (35-45) mm/Hg pO2 31.0 L* (80-100) mm/Hg HCO3 19.2 L (21-28) mmol/L ABG pH 7.04 L* (7.35-7.45) ABG Total CO2 21.4 L (22-28) mmol.L ABG O2 Saturation 56.4 L (95-98) % ABG O2 Content 8.9 L (15-23) ML/dl ABG Base Excess -12.0 L (-2.0-3.0) mmol/L ABG Hemoglobin 11.6 L (11.7-17.4) g/dL ABG Carboxyhemoglobin 1.5 (0.5-1.5) % POC ABG HHb (Measured) 42.5 H (0-5) % ABG Methemoglobin 1.0 (0.0-3.0) % ABG O2 Capacity 15.8 L (16-24) mL/dl Hgb O2 Saturation 54.9 L (95.0-98.0) % FiO2 100.0 % Sodium 139 (132-148) mmol/L Potassium 3.1 L (3.6-5.0) mmol/L Chloride 103 (98-107) mmol/L Carbon Dioxide 23 (21-33) mmol/L Anion Gap 16 (10-20) BUN 25 H (7-21) mg/dL Creatinine 2.7 H (0.7-1.2) mg/dl Est GFR ( Amer) 21 Est GFR (Non-Af Amer) 17 POC Glucose (mg/dL) (65-110) mg/dL Random Glucose 86 (70-110) mg/dL Calcium 7.8 L (8.4-10.5) mg/dL Total Bilirubin 0.9 (0.2-1.3) mg/dL AST 26 (14-36) U/L ALT 23 (7-56) U/L Alkaline Phosphatase 178 H D (38-126) U/L Total Protein 6.1 (5.8-8.3) g/dL Albumin 2.7 L (3.0-4.8) g/dL Globulin 3.5 gm/dL Albumin/Globulin Ratio 0.8 L (1.1-1.8) Blood Type Blood Type Confirm Antibody Screen BBK History Checked 01/22/18 01/22/18 01/22/18 Range/Units 13:30 12:09 11:01 WBC 44.9 H* D (4.5-11.0) 10^3/uL RBC 3.85 (3.5-6.1) 10^6/uL Hgb 13.6 (12.0-16.0) g/dL Hct 44.2 (36.0-48.0) % MCV 114.8 H (80.0-105.0) fl MCH 35.3 H (25.0-35.0) pg MCHC 30.8 L (31.0-37.0) g/dl RDW 19.5 H (11.5-14.5) % Plt Count 226 (120.0-450.0) 10^3/uL MPV 10.3 (7.0-11.0) fl Gran % 89.0 H (50.0-68.0) % Lymph % (Auto) 7.9 L (22.0-35.0) % [place] % (Auto) 3.1 (1.0-6.0) % Eos % (Auto) 0.0 L (1.5-5.0) % Baso % (Auto) 0.0 (0.0-3.0) % Gran # 39.95 H (1.4-6.5) Lymph # (Auto) 3.5 H (1.2-3.4) [place] # (Auto) 1.4 H (0.1-0.6) Eos # (Auto) 0.0 (0.0-0.7) Baso # (Auto) 0.02 (0.0-2.0) K/mm3 Corrected WBC (Man) 42.0 H (4.5-11.0) K/mm3 Neutrophils % (Manual) 95 H (50.0-70.0) % Band Neutrophils % 2 (0-2) % Lymphocytes % (Manual) 1 L (22.0-35.0) % Monocytes % (Manual) 2 (1.0-6.0) % Nucleated RBC % 7 % Platelet Evaluation Normal (NORMAL) PT (9.4-12.5) SECONDS INR pCO2 (35-45) mm/Hg pO2 (80-100) mm/Hg HCO3 (21-28) mmol/L ABG pH (7.35-7.45) ABG Total CO2 (22-28) mmol.L ABG O2 Saturation (95-98) % ABG O2 Content (15-23) ML/dl ABG Base Excess (-2.0-3.0) mmol/L ABG Hemoglobin (11.7-17.4) g/dL ABG Carboxyhemoglobin (0.5-1.5) % POC ABG HHb (Measured) (0-5) % ABG Methemoglobin (0.0-3.0) % ABG O2 Capacity (16-24) mL/dl Hgb O2 Saturation (95.0-98.0) % FiO2 % Sodium (132-148) mmol/L Potassium (3.6-5.0) mmol/L Chloride (98-107) mmol/L Carbon Dioxide (21-33) mmol/L Anion Gap (10-20) BUN (7-21) mg/dL Creatinine (0.7-1.2) mg/dl Est GFR ( Amer) Est GFR (Non-Af Amer) POC Glucose (mg/dL) 87 96 (65-110) mg/dL Random Glucose (70-110) mg/dL Calcium (8.4-10.5) mg/dL Total Bilirubin (0.2-1.3) mg/dL AST (14-36) U/L ALT (7-56) U/L Alkaline Phosphatase (38-126) U/L Total Protein (5.8-8.3) g/dL Albumin (3.0-4.8) g/dL Globulin gm/dL Albumin/Globulin Ratio (1.1-1.8) Blood Type Blood Type Confirm Antibody Screen BBK History Checked 01/22/18 01/21/18 01/21/18 Range/Units 07:15 22:25 17:14 WBC (4.5-11.0) 10^3/uL RBC (3.5-6.1) 10^6/uL Hgb (12.0-16.0) g/dL Hct (36.0-48.0) % MCV (80.0-105.0) fl MCH (25.0-35.0) pg MCHC (31.0-37.0) g/dl RDW (11.5-14.5) % Plt Count (120.0-450.0) 10^3/uL MPV (7.0-11.0) fl Gran % (50.0-68.0) % Lymph % (Auto) (22.0-35.0) % [place] % (Auto) (1.0-6.0) % Eos % (Auto) (1.5-5.0) % Baso % (Auto) (0.0-3.0) % Gran # (1.4-6.5) Lymph # (Auto) (1.2-3.4) [place] # (Auto) (0.1-0.6) Eos # (Auto) (0.0-0.7) Baso # (Auto) (0.0-2.0) K/mm3 Corrected WBC (Man) (4.5-11.0) K/mm3 Neutrophils % (Manual) (50.0-70.0) % Band Neutrophils % (0-2) % Lymphocytes % (Manual) (22.0-35.0) % Monocytes % (Manual) (1.0-6.0) % Nucleated RBC % % Platelet Evaluation (NORMAL) PT (9.4-12.5) SECONDS INR pCO2 (35-45) mm/Hg pO2 (80-100) mm/Hg HCO3 (21-28) mmol/L ABG pH (7.35-7.45) ABG Total CO2 (22-28) mmol.L ABG O2 Saturation (95-98) % ABG O2 Content (15-23) ML/dl ABG Base Excess (-2.0-3.0) mmol/L ABG Hemoglobin (11.7-17.4) g/dL ABG Carboxyhemoglobin (0.5-1.5) % POC ABG HHb (Measured) (0-5) % ABG Methemoglobin (0.0-3.0) % ABG O2 Capacity (16-24) mL/dl Hgb O2 Saturation (95.0-98.0) % FiO2 % Sodium (132-148) mmol/L Potassium (3.6-5.0) mmol/L Chloride (98-107) mmol/L Carbon Dioxide (21-33) mmol/L Anion Gap (10-20) BUN (7-21) mg/dL Creatinine (0.7-1.2) mg/dl Est GFR ( Amer) Est GFR (Non-Af Amer) POC Glucose (mg/dL) 92 98 89 (65-110) mg/dL Random Glucose (70-110) mg/dL Calcium (8.4-10.5) mg/dL Total Bilirubin (0.2-1.3) mg/dL AST (14-36) U/L ALT (7-56) U/L Alkaline Phosphatase (38-126) U/L Total Protein (5.8-8.3) g/dL Albumin (3.0-4.8) g/dL Globulin gm/dL Albumin/Globulin Ratio (1.1-1.8) Blood Type Blood Type Confirm Antibody Screen BBK History Checked 01/21/18 01/20/18 01/20/18 Range/Units 11:39 22:02 17:12 WBC (4.5-11.0) 10^3/uL RBC (3.5-6.1) 10^6/uL Hgb (12.0-16.0) g/dL Hct (36.0-48.0) % MCV (80.0-105.0) fl MCH (25.0-35.0) pg MCHC (31.0-37.0) g/dl RDW (11.5-14.5) % Plt Count (120.0-450.0) 10^3/uL MPV (7.0-11.0) fl Gran % (50.0-68.0) % Lymph % (Auto) (22.0-35.0) % [place] % (Auto) (1.0-6.0) % Eos % (Auto) (1.5-5.0) % Baso % (Auto) (0.0-3.0) % Gran # (1.4-6.5) Lymph # (Auto) (1.2-3.4) [place] # (Auto) (0.1-0.6) Eos # (Auto) (0.0-0.7) Baso # (Auto) (0.0-2.0) K/mm3 Corrected WBC (Man) (4.5-11.0) K/mm3 Neutrophils % (Manual) (50.0-70.0) % Band Neutrophils % (0-2) % Lymphocytes % (Manual) (22.0-35.0) % Monocytes % (Manual) (1.0-6.0) % Nucleated RBC % % Platelet Evaluation (NORMAL) PT (9.4-12.5) SECONDS INR pCO2 (35-45) mm/Hg pO2 (80-100) mm/Hg HCO3 (21-28) mmol/L ABG pH (7.35-7.45) ABG Total CO2 (22-28) mmol.L ABG O2 Saturation (95-98) % ABG O2 Content (15-23) ML/dl ABG Base Excess (-2.0-3.0) mmol/L ABG Hemoglobin (11.7-17.4) g/dL ABG Carboxyhemoglobin (0.5-1.5) % POC ABG HHb (Measured) (0-5) % ABG Methemoglobin (0.0-3.0) % ABG O2 Capacity (16-24) mL/dl Hgb O2 Saturation (95.0-98.0) % FiO2 % Sodium (132-148) mmol/L Potassium (3.6-5.0) mmol/L Chloride (98-107) mmol/L Carbon Dioxide (21-33) mmol/L Anion Gap (10-20) BUN (7-21) mg/dL Creatinine (0.7-1.2) mg/dl Est GFR ( Amer) Est GFR (Non-Af Amer) POC Glucose (mg/dL) 114 H 203 H 206 H (65-110) mg/dL Random Glucose (70-110) mg/dL Calcium (8.4-10.5) mg/dL Total Bilirubin (0.2-1.3) mg/dL AST (14-36) U/L ALT (7-56) U/L Alkaline Phosphatase (38-126) U/L Total Protein (5.8-8.3) g/dL Albumin (3.0-4.8) g/dL Globulin gm/dL Albumin/Globulin Ratio (1.1-1.8) Blood Type Blood Type Confirm Antibody Screen BBK History Checked 01/20/18 Range/Units 11:36 WBC (4.5-11.0) 10^3/uL RBC (3.5-6.1) 10^6/uL Hgb (12.0-16.0) g/dL Hct (36.0-48.0) % MCV (80.0-105.0) fl MCH (25.0-35.0) pg MCHC (31.0-37.0) g/dl RDW (11.5-14.5) % Plt Count (120.0-450.0) 10^3/uL MPV (7.0-11.0) fl Gran % (50.0-68.0) % Lymph % (Auto) (22.0-35.0) % [place] % (Auto) (1.0-6.0) % Eos % (Auto) (1.5-5.0) % Baso % (Auto) (0.0-3.0) % Gran # (1.4-6.5) Lymph # (Auto) (1.2-3.4) [place] # (Auto) (0.1-0.6) Eos # (Auto) (0.0-0.7) Baso # (Auto) (0.0-2.0) K/mm3 Corrected WBC (Man) (4.5-11.0) K/mm3 Neutrophils % (Manual) (50.0-70.0) % Band Neutrophils % (0-2) % Lymphocytes % (Manual) (22.0-35.0) % Monocytes % (Manual) (1.0-6.0) % Nucleated RBC % % Platelet Evaluation (NORMAL) PT (9.4-12.5) SECONDS INR pCO2 (35-45) mm/Hg pO2 (80-100) mm/Hg HCO3 (21-28) mmol/L ABG pH (7.35-7.45) ABG Total CO2 (22-28) mmol.L ABG O2 Saturation (95-98) % ABG O2 Content (15-23) ML/dl ABG Base Excess (-2.0-3.0) mmol/L ABG Hemoglobin (11.7-17.4) g/dL ABG Carboxyhemoglobin (0.5-1.5) % POC ABG HHb (Measured) (0-5) % ABG Methemoglobin (0.0-3.0) % ABG O2 Capacity (16-24) mL/dl Hgb O2 Saturation (95.0-98.0) % FiO2 % Sodium (132-148) mmol/L Potassium (3.6-5.0) mmol/L Chloride (98-107) mmol/L Carbon Dioxide (21-33) mmol/L Anion Gap (10-20) BUN (7-21) mg/dL Creatinine (0.7-1.2) mg/dl Est GFR ( Amer) Est GFR (Non-Af Amer) POC Glucose (mg/dL) 207 H (65-110) mg/dL Random Glucose (70-110) mg/dL Calcium (8.4-10.5) mg/dL Total Bilirubin (0.2-1.3) mg/dL AST (14-36) U/L ALT (7-56) U/L Alkaline Phosphatase (38-126) U/L Total Protein (5.8-8.3) g/dL Albumin (3.0-4.8) g/dL Globulin gm/dL Albumin/Globulin Ratio (1.1-1.8) Blood Type Blood Type Confirm Antibody Screen BBK History Checked Laboratory Results - last 24 hr 01/20/18 01/20/18 01/20/18 11:36 17:12 22:02 WBC RBC Hgb Hct MCV MCH MCHC RDW Plt Count MPV Gran % Lymph % (Auto) [place] % (Auto) Eos % (Auto) Baso % (Auto) Gran # Lymph # (Auto) [place] # (Auto) Eos # (Auto) Baso # (Auto) Corrected WBC (Man) Neutrophils % (Manual) Band Neutrophils % Lymphocytes % (Manual) Monocytes % (Manual) Nucleated RBC % Platelet Evaluation PT INR pCO2 pO2 HCO3 ABG pH ABG Total CO2 ABG O2 Saturation ABG O2 Content ABG Base Excess ABG Hemoglobin ABG Carboxyhemoglobin POC ABG HHb (Measured) ABG Methemoglobin ABG O2 Capacity Hgb O2 Saturation FiO2 Sodium Potassium Chloride Carbon Dioxide Anion Gap BUN Creatinine Est GFR ( Amer) Est GFR (Non-Af Amer) POC Glucose (mg/dL) 207 H 206 H 203 H Random Glucose Calcium Total Bilirubin AST ALT Alkaline Phosphatase Total Protein Albumin Globulin Albumin/Globulin Ratio Blood Type Blood Type Confirm Antibody Screen BBK History Checked 01/21/18 01/21/18 01/21/18 11:39 17:14 22:25 WBC RBC Hgb Hct MCV MCH MCHC RDW Plt Count MPV Gran % Lymph % (Auto) [place] % (Auto) Eos % (Auto) Baso % (Auto) Gran # Lymph # (Auto) [place] # (Auto) Eos # (Auto) Baso # (Auto) Corrected WBC (Man) Neutrophils % (Manual) Band Neutrophils % Lymphocytes % (Manual) Monocytes % (Manual) Nucleated RBC % Platelet Evaluation PT INR pCO2 pO2 HCO3 ABG pH ABG Total CO2 ABG O2 Saturation ABG O2 Content ABG Base Excess ABG Hemoglobin ABG Carboxyhemoglobin POC ABG HHb (Measured) ABG Methemoglobin ABG O2 Capacity Hgb O2 Saturation FiO2 Sodium Potassium Chloride Carbon Dioxide Anion Gap BUN Creatinine Est GFR ( Amer) Est GFR (Non-Af Amer) POC Glucose (mg/dL) 114 H 89 98 Random Glucose Calcium Total Bilirubin AST ALT Alkaline Phosphatase Total Protein Albumin Globulin Albumin/Globulin Ratio Blood Type Blood Type Confirm Antibody Screen BBK History Checked 01/22/18 01/22/18 01/22/18 07:15 11:01 12:09 WBC RBC Hgb Hct MCV MCH MCHC RDW Plt Count MPV Gran % Lymph % (Auto) [place] % (Auto) Eos % (Auto) Baso % (Auto) Gran # Lymph # (Auto) [place] # (Auto) Eos # (Auto) Baso # (Auto) Corrected WBC (Man) Neutrophils % (Manual) Band Neutrophils % Lymphocytes % (Manual) Monocytes % (Manual) Nucleated RBC % Platelet Evaluation PT INR pCO2 pO2 HCO3 ABG pH ABG Total CO2 ABG O2 Saturation ABG O2 Content ABG Base Excess ABG Hemoglobin ABG Carboxyhemoglobin POC ABG HHb (Measured) ABG Methemoglobin ABG O2 Capacity Hgb O2 Saturation FiO2 Sodium Potassium Chloride Carbon Dioxide Anion Gap BUN Creatinine Est GFR ( Amer) Est GFR (Non-Af Amer) POC Glucose (mg/dL) 92 96 87 Random Glucose Calcium Total Bilirubin AST ALT Alkaline Phosphatase Total Protein Albumin Globulin Albumin/Globulin Ratio Blood Type Blood Type Confirm Antibody Screen BBK History Checked 01/22/18 01/22/18 01/22/18 13:30 13:30 13:30 WBC 44.9 H* D RBC 3.85 Hgb 13.6 Hct 44.2 MCV 114.8 H MCH 35.3 H MCHC 30.8 L RDW 19.5 H Plt Count 226 MPV 10.3 Gran % 89.0 H Lymph % (Auto) 7.9 L [place] % (Auto) 3.1 Eos % (Auto) 0.0 L Baso % (Auto) 0.0 Gran # 39.95 H Lymph # (Auto) 3.5 H [place] # (Auto) 1.4 H Eos # (Auto) 0.0 Baso # (Auto) 0.02 Corrected WBC (Man) 42.0 H Neutrophils % (Manual) 95 H Band Neutrophils % 2 Lymphocytes % (Manual) 1 L Monocytes % (Manual) 2 Nucleated RBC % 7 Platelet Evaluation Normal PT 25.0 H INR 2.16 pCO2 pO2 HCO3 ABG pH ABG Total CO2 ABG O2 Saturation ABG O2 Content ABG Base Excess ABG Hemoglobin ABG Carboxyhemoglobin POC ABG HHb (Measured) ABG Methemoglobin ABG O2 Capacity Hgb O2 Saturation FiO2 Sodium 139 Potassium 3.1 L Chloride 103 Carbon Dioxide 23 Anion Gap 16 BUN 25 H Creatinine 2.7 H Est GFR ( Amer) 21 Est GFR (Non-Af Amer) 17 POC Glucose (mg/dL) Random Glucose 86 Calcium 7.8 L Total Bilirubin 0.9 AST 26 ALT 23 Alkaline Phosphatase 178 H D Total Protein 6.1 Albumin 2.7 L Globulin 3.5 Albumin/Globulin Ratio 0.8 L Blood Type Blood Type Confirm Antibody Screen BBK History Checked 01/22/18 01/22/18 01/22/18 13:50 14:10 14:15 WBC RBC Hgb Hct MCV MCH MCHC RDW Plt Count MPV Gran % Lymph % (Auto) [place] % (Auto) Eos % (Auto) Baso % (Auto) Gran # Lymph # (Auto) [place] # (Auto) Eos # (Auto) Baso # (Auto) Corrected WBC (Man) Neutrophils % (Manual) Band Neutrophils % Lymphocytes % (Manual) Monocytes % (Manual) Nucleated RBC % Platelet Evaluation PT INR pCO2 71 H* 76 H* pO2 31.0 L* 36.0 L* HCO3 19.2 L 20.6 L ABG pH 7.04 L* 7.04 L* ABG Total CO2 21.4 L 22.9 ABG O2 Saturation 56.4 L 65.3 L ABG O2 Content 8.9 L 11.6 L ABG Base Excess -12.0 L -11.2 L ABG Hemoglobin 11.6 L 13.0 ABG Carboxyhemoglobin 1.5 1.9 H POC ABG HHb (Measured) 42.5 H 33.8 H ABG Methemoglobin 1.0 0.7 ABG O2 Capacity 15.8 L 17.8 Hgb O2 Saturation 54.9 L 63.5 L FiO2 100.0 100.0 Sodium Potassium Chloride Carbon Dioxide Anion Gap BUN Creatinine Est GFR ( Amer) Est GFR (Non-Af Amer) POC Glucose (mg/dL) Random Glucose Calcium Total Bilirubin AST ALT Alkaline Phosphatase Total Protein Albumin Globulin Albumin/Globulin Ratio Blood Type O POSITIVE Blood Type Confirm Antibody Screen Negative BBK History Checked No verified bt 01/22/18 14:45 WBC RBC Hgb Hct MCV MCH MCHC RDW Plt Count MPV Gran % Lymph % (Auto) [place] % (Auto) Eos % (Auto) Baso % (Auto) Gran # Lymph # (Auto) [place] # (Auto) Eos # (Auto) Baso # (Auto) Corrected WBC (Man) Neutrophils % (Manual) Band Neutrophils % Lymphocytes % (Manual) Monocytes % (Manual) Nucleated RBC % Platelet Evaluation PT INR pCO2 pO2 HCO3 ABG pH ABG Total CO2 ABG O2 Saturation ABG O2 Content ABG Base Excess ABG Hemoglobin ABG Carboxyhemoglobin POC ABG HHb (Measured) ABG Methemoglobin ABG O2 Capacity Hgb O2 Saturation FiO2 Sodium Potassium Chloride Carbon Dioxide Anion Gap BUN Creatinine Est GFR ( Amer) Est GFR (Non-Af Amer) POC Glucose (mg/dL) Random Glucose Calcium Total Bilirubin AST ALT Alkaline Phosphatase Total Protein Albumin Globulin Albumin/Globulin Ratio Blood Type Blood Type Confirm O POSITIVE Antibody Screen BBK History Checked EKG/Cardiology Studies: Cardiology / EKG Studies 01/22/18 14:43 EKG [ELECTROCARDIOGRAM] Stat Comment: Reason For Exam: s/p code Critical Care Progress Note - Nutrition Nutrition: Nutrition Category Date Time Status Dysphagia/Modified Consistency Diet [DIET] Diets 01/20/18 Lunch Ordered Assessment/Plan - Assessment and Plan (Free Text) Plan: Patient seen and examined with resident, agree with note with following additions/exceptions: Patient is 73yo female with PMhx of ESRD on HD, COPD, Hypercapnic resp failure, anemia, PVD, poor venous access, was admitted intially to MICU for hypercapnic resp failure requiring BIPAP, weaned off, improved, stabilized, subsequently transferred to telemtry. Patient was telemetry hold on MICU since Friday, this afternoon vomitted several times, likely aspirated and had cardiac PEA arrest. Patient had 1L of billios, dark material suctioned out of the stomach. Patient had 2 cardiac arrest, first one lasting 6 minutes, second one lasting 8 minutes, ACLS protocol was followed, CPR, pulses checked every 2 minutes, Epi given every 3-5 minutes, 2 amps bicarb given as well. Patient was intubted during code with glidescope. Patient was given 3L NS bolus, 1u PRBC during code. Post ROSC, patient awake, alert, following commands, attempting to reach for tubes. Family at bedside updated of clinical situation. Patient had R femoral TLC placed by MICU team. Currently intubated, sedated, on 2 vasopressors, Levopehed, Vasopressin, Stress dose steroids given. Repeat labs, including, cbc, cmp, INR sent off and noted. CXR with bilateral lower consolidations, atelectasis, tubes in satisfactory positions. EKG no ischemic changes Bedside ECHO, poor windows, no pericardial effusion, hyperdynamic LV Cardiac arrest ESRD on HD Septic Shock Aspiration PNA Emesis Anemia DM Recommend: - cont with vent support, low tidal vol ventilation, obtain ABG, keep Plateau pressure <30 - broad spectrum abx, Merrem, Vanco, Azithro, panculture, UCx, BCx, Procal, - Vasorepssor support, Levophed, Vasopressin, Stress dose steroids - PPI IV BID - when stable CT C/A/P - follow up renal - q6hr labs - FS control - Repeat ECHO - GI ppx - DVT ppx - Monitor in MICU Poor prognosis critical care time 60 minutes
[2018-01-22 18:41] VITALS: TEMP 97
--- NOTE | 2018-01-22 19:12 | PCM.PROC ---
Procedures Attestation:: I certify that I have explained the specified Operation(s) or Procedure(s), risks, benefits and reasonable alternatives to the Patient and/or other person responsible. The opportunity was given to ask questions and all questions answered - Central Line Placement Right Femoral Triple Lumen Catheter Aseptic technique was employed throughout the procedure: Hand Hygiene done prior to procedure, Full sterile barriers (mask, hair cover, sterile gown, sterile gloves), Chloraprep Antiseptic: 2 minute prep for Femoral CVP Time Out Performed: No Pt. Placed on Pulse Ox Monitor: No Ultrasound Used for Placement: Yes Central Line Lumen Inserted: triple Central Line Length: 20 cm Post Procedure: Sutured in Place, Good Blood Return, All Ports Aspirated, Flushed, Capped, Sterile Dressing Applied Secured by: Suture Post procedure dressing: Chlorhexidine disc (Biopatch) Post Procedure X-Ray: No Patient Tolerated Procedure: Well Immediate Complications: None
[2018-01-22 19:38] LABS: ARTERIAL BLOOD GAS HCO3 16.9 mmol/L (21-28); ARTERIAL BLOOD GAS HEMOGLOBIN 13.6 g/dL (11.7-17.4); ARTERIAL BLOOD GAS O2 CAPACITY 18.7 mL/dl (16-24); ARTERIAL BLOOD GAS O2 CONTENT 8.9 ML/dl (15-23); ARTERIAL BLOOD GAS O2 SAT 47.6 % (95-98); ARTERIAL BLOOD GAS PCO2 57 mm/Hg (35-45); ARTERIAL BLOOD GAS TCO2 18.6 mmol.L (22-28)
[2018-01-22 19:45] LABS: ARTERIAL BLOOD GAS PH 7.08 (7.35-7.45)
[2018-01-22] MEDS ORDERED: Piperacillin/Tazobact 2.25gm 2.25 GM/100 ML BAG IVPB STA (20:14)
--- NOTE | 2018-01-22 20:41 | PCM.RRT ---
<Iman Da Silva - Last Filed: 01/22/18 20:31> GROUNDSKEEPING MAINTENANCE WORKER Nurse Assessment - Situation Date: 01/17/18 Time GROUNDSKEEPING MAINTENANCE WORKER was called: 07:18 [employer]OUNDSKEEPING MAINTENANCE WORKER Responder Arrival Time: 07:20 GROUNDSKEEPING MAINTENANCE WORKER Location:: [address] [place] [address] Room Number: [id number] [employer]KEEP[employer]TENANCE WORKER Reason for Call: Hypotension, Looks Sicker GROUNDSKEEPING MAINTENANCE WORKER Called By: RN - IV IV Inserted during GROUNDSKEEPING MAINTENANCE WORKER?: No - Respiratory Oxygen Delivery Method: Nasal Cannula @L/min Oxygen Flow Rate: 5 Was the Patient Ventilated with Bag/Mask 100% O2?: No - Medication Medications Administered During GROUNDSKEEPING MAINTENANCE WORKER: 1/2 amp 50% dextrose - Diagnostic Test Ordered EKG: Yes CT Scan: Yes (head) - Stat Labs Ordered GROUNDSKEEPING MAINTENANCE WORKER Stat Labs Ordered: ABG CPR started during GROUNDSKEEPING MAINTENANCE WORKER?: No - Vital Signs Vital Sign: Rapid Response Vital Sign Blood Pressure 53/26 Pulse Rate 88 Respiratory Rate 18 Temperature 99 F Oxygen Saturation 95 - Finger Stick Blood Glucose Finger Stick Blood Glucose: 81 I.Reason for GROUNDSKEEPING MAINTENANCE WORKER - A) Acute Change in Patient: Subjective: 73 year old female with PMH of ESRD on hemodialysis MWF, HTN, CAD, DM, CVA diastolic CHF, COPD, CVA, legally blind and anemia being managed in the ICU for hypercapnic respiratory failure had ramírez ferrara called at approximately 8pm with heart rate in the 30's and blood pressure of 60/21. Patient received one dose of atropine 1mg and one dose of epinephrine 1mg and heart rate improved to the 120's with BP of 177/22. Patient's status improved by the time of arrival and no further resuscitative measures were taken. Of note, patient had two earlier code blue's called today for similar symptoms possibly secondary to coffee ground hematemesis with resulting aspiration. First cardiac arrest lasted 6 mintues and the second lasted 8 minutes. Patient's vital signs are currently stabilized. Patient is sedated and breathing on PRVC ventilation. - Neurological Status Other (Please specify): sedated - Respiratory Oxygen Delivery Method: Nasal Cannula @L/min, Intubated Oxygen Flow Rate: 5 - Constitutional Additional Comments: sedated - Head Head Exam: ATRAUMATIC, NORMAL INSPECTION - Eyes Eye Exam: PERRL - Respiratory Exam Respiratory Exam: absent: Rhonchi, Wheezes, Respiratory Distress Additional comments: on ventilator - Cardiovascular Exam Cardiovascular Exam: Tachycardia, +S1, +S2 - GI/Abdominal Exam GI & Abdominal Exam: Soft, Normal Bowel Sounds. absent: Guarding, Rigid - Neurological Exam Additional exam: sedated - Extremities Exam Additional comments: pedal pulses +2 B/L Plan - Assessment of Findings&Treatment Plan -continue vassopressin 0.04 and levophed 30 -continue sedation -continue PRVC ventilation, target low tidal volume support -continue doxycycline, merrem, zosyn -pancultures pending -NS 40cc/hr -monitor in the ICU -poor prognosis <Sharon Goel - Last Filed: 01/22/18 22:54> GROUN[employer]KEEPING MAINTENANCE WORKER Nurse Assessment - Vital Signs Vital Sign: Rapid Response Vital Sign Blood Pressure 53/26 Pulse Rate 88 Respiratory Rate 18 Temperature 99 F Oxygen Saturation 95 Attending/Attestation - Attestation I have personally seen and examined this patient.: Yes I have fully participated in the care of the patient.: Yes I have reviewed all pertinent clinical information, including history, physical exam and plan: Yes Notes (Text): 01/22/18 22:53 I participated in management of patient after 7 PM. Agree with note.
[2018-01-22 20:59] LABS: BASO # 0.02 K/mm3 (0.0-2.0); BASO % 0.1 % (0.0-3.0); HEMOGLOBIN 13.7 g/dL (12.0-16.0); MEAN CORPUSCULAR HEMOGLOBIN 34.9 pg (25.0-35.0); MEAN CORPUSCULAR HGB CONC 30.9 g/dl (31.0-37.0); MEAN PLATELET VOLUME 11.1 fl (7.0-11.0); PLATELET COUNT 164 10^3/uL (120.0-450.0); RBC 3.93 10^6/uL (3.5-6.1); RED CELL DISTRIBUTION WIDTH 19.7 % (11.5-14.5); WHITE BLOOD COUNT 17.7 10^3/uL (4.5-11.0)
[2018-01-22 21:23] LABS: BAND 4 % (0-2); CORRECTED WBC 10.9 K/mm3 (4.5-11.0); LYMPHOCYTE 2 % (22.0-35.0); METAMYELOCYTE 5 %; MONOCYTE 2 % (1.0-6.0); NEUTROPHIL 87 % (50.0-70.0); NUCLEATED RED BLOOD CELL 62 %
[2018-01-22 21:26] LABS: ANISOCYTOSIS SLIGHT
[2018-01-22 21:27] LABS: PLATELET ESTIMATE NORMAL (NORMAL)
[2018-01-22 21:34] LABS: ALB/GLOB RATIO 0.7 (1.1-1.8); ALBUMIN 1.8 g/dL (3.0-4.8); CALCIUM 7.2 mg/dL (8.4-10.5); TROPONIN I 0.21 ng/mL
[2018-01-22 21:55] LABS: ARTERIAL BLOOD GAS HCO3 12.7 mmol/L (21-28); ARTERIAL BLOOD GAS HEMOGLOBIN 14.1 g/dL (11.7-17.4); ARTERIAL BLOOD GAS O2 CAPACITY 19.4 mL/dl (16-24); ARTERIAL BLOOD GAS O2 CONTENT 17.6 ML/dl (15-23); ARTERIAL BLOOD GAS PCO2 31 mm/Hg (35-45); ARTERIAL BLOOD GAS PH 7.22 (7.35-7.45)
[2018-01-22 21:56] LABS: ARTERIAL BLOOD GAS O2 SAT 90.7 % (95-98); ARTERIAL BLOOD GAS TCO2 13.7 mmol.L (22-28)
[2018-01-22] MEDS ORDERED: MEROPENEM 500 MG in NS 500 MG/50 ML BAG IVPB SCH (22:00)
[2018-01-22] MEDS ORDERED: Dextrose 50% SYRINGE Inj (50 ml) ONE (22:08)
--- NOTE | 2018-01-22 22:15 | PN ---
DATE: 01/22/2018 SUBJECTIVE: The patient is in bed, in no acute distress, nontoxic. PHYSICAL EXAMINATION: VITAL SIGNS: Temperature is 98, blood pressure is 80/30, respiratory rate is 18, heart rate of 120. HEENT: Examination is unremarkable. NECK: Supple. LUNGS: Have decreased breath sounds. HEART: Normal S1, S2. ABDOMEN: Soft. LABORATORY DATA: Laboratory examination reveals the patient's white count of 44,000, hemoglobin of 13, platelets of 226. Coagulation is noted. Chemistry reveals a BUN of 25, creatinine of 2.7. Microbiology reveals blood cultures are negative. Urine cultures are negative. ASSESSMENT AND PLAN: A 73-year-old female with end-stage renal disease, on hemodialysis, diabetes, hypertension, coronary artery disease, stenting with diastolic congestive heart failure, chronic obstructive lung disease, cerebrovascular accident, legally blind, and anemia, presented to [facility] with , presented with hypotension secondary to hypercapnic respiratory distress with chronic obstructive lung disease. Review of orders reveals the patient to be on doxycycline and the patient is also on Solu-Medrol. We will follow with you. Isaac Nation MD
[2018-01-22] MEDS ORDERED: Albumin Human 25% (12.5 gm/50 ml) IV SCH (23:15)
[2018-01-22] MEDS ORDERED: Albumin Human 25% (12.5gm/50 ML) IVPB SCH ×2 (23:30)
[2018-01-23] MEDS: Albuterol-Ipratrop 3 mg / 0.5 (3 ml) UD IH SCH (00:15)
[2018-01-23] MEDS ORDERED: DOPamine 400mg/250ml D5W 400 MG/250 ML BAG IV ONE (00:29)
[2018-01-23] MEDS ORDERED: Sodium Bicarbonate (8.4%) 50 Meq Syringe IVP ONE (00:31)
[2018-01-23] MEDS ORDERED: HYDROmorphone 0.5 mg/0.5 ml ISec IVP PRN (01:26)
--- NOTE | 2018-01-23 01:40 | CP.PCM.PN ---
<Shahid Espino - Last Filed: 01/23/18 01:38> Subjective - Date & Time of Evaluation Date of Evaluation: 01/23/18 Time of Evaluation: 01:38 - Subjective Subjective: Patient's POA, daughter (Rivka Dickerson), present with family requests patient now be DNR and start comfort care measures. DNR form signed and placed in file. Objective - Vital Signs/Intake and Output Vital Signs (last 24 hours): Temp Pulse Resp BP Pulse Ox 97 F L 116 H 11 L 82/37 L 83 L 01/22/18 16:00 01/22/18 17:30 01/22/18 14:37 01/22/18 17:30 01/22/18 17:30 Intake and Output: 01/22/18 01/23/18 18:59 06:59 Intake Total 15 Balance 15 - Medications Medications: Current Medications Acetaminophen (Tylenol 325mg Tab) 650 mg PO Q4H PRN PRN Reason: Fever >100.5 F Last Admin: 01/14/18 17:30 Dose: 650 mg Albuterol/Ipratropium (Duoneb 3 Mg/0.5 Mg (3 Ml) Ud) 3 ml IH Q6H [facility] Last Admin: 01/23/18 00:15 Dose: Not Given Alprazolam (Xanax) 0.25 mg PO BID PRN; Protocol PRN Reason: Agitation Stop: 01/23/18 18:01 Last Admin: 01/21/18 21:52 Dose: 0.25 mg Aspirin (Ecotrin) 81 mg PO DAILY [facility] Last Admin: 01/22/18 10:00 Dose: Not Given Atorvastatin Calcium (Lipitor) 20 mg PO DIN [facility] Last Admin: 01/17/18 19:37 Dose: Not Given Brimonidine Tartrate (Alphagan P 0.15% Opht) 0 drop OD Q8 [facility] Last Admin: 01/21/18 22:01 Dose: Not Given Darbepoetin Jovi (Aranesp) 60 mcg IVP Fr@1000 [facility] Last Admin: 01/16/18 09:27 Dose: 60 mcg Doxycycline Hyclate (Doryx) 100 mg PO Q12 [facility]; Protocol Stop: 01/28/18 22:01 Last Admin: 01/22/18 10:09 Dose: 100 mg Ferrous Sulfate (Feosol) 324 mg PO DAILY [facility] Last Admin: 01/22/18 10:11 Dose: 324 mg Folic Acid (Folic Acid) 1 mg PO DAILY [facility] Last Admin: 01/22/18 10:11 Dose: 1 mg Gabapentin (Neurontin) 100 mg PO DAILY [facility]; Protocol Last Admin: 01/22/18 10:11 Dose: 100 mg Heparin Sodium (Porcine) (Heparin) 5,000 units SC Q12 [facility]; Protocol Last Admin: 01/22/18 10:00 Dose: 5,000 units Hydrocortisone Sodium Succinate (Solu-Cortef) 50 mg IVP Q6H [facility] Last Admin: 01/22/18 18:52 Dose: 50 mg Hydromorphone HCl (Dilaudid) 0.5 mg IVP Q4H PRN PRN Reason: Pain, severe (8-10) NOREPINEPHRINE BIT/0.9 % NACL (Levophed 4 Mg/ 250 Ml Ns Premixed) 4 mg in 250 mls @ 15 mls/hr IV .[id number] PRN; Protocol PRN Reason: TITRATE PER MD ORDER Midazolam 100 mg/100ml in NS (Midazolam 100 Mg/100ml In Ns) 100 mg in 100 mls @ 1 mls/hr IV .Q24H PRN; Protocol PRN Reason: Agitation Last Titration: 01/22/18 18:48 Dose: 2 mg/hr, 2 mls/hr Vasopressin 20 units/ Sodium (Chloride) 101 mls @ 9.09 mls/hr IV .Q11H7M [facility]; Protocol Last Admin: 01/22/18 16:04 Dose: 9.09 mls/hr Meropenem/Sodium Chloride (Merrem Iv 500 Mg/Ns 50 Ml) 500 mg in 50 mls @ 12.5 mls/hr IVPB Q8 [facility]; Protocol Stop: 01/31/18 22:01 Potassium Chloride (Potassium Chloride 20 Meq/100 Ml) 20 meq in 100 mls @ 50 mls/hr IVPB Q2H [facility] Stop: 01/23/18 01:44 Sodium Bicarbonate 100 meq/ (Sodium Chloride) 1,100 mls @ 60 mls/hr IV .[id number] [facility] Albumin Human (Albumin Human 25% (12.5 Gm/50 Ml)) 50 mls @ 1 mls/min IVPB Q6H [facility] Stop: 01/23/18 06:19 Ibuprofen (Motrin Tab) 400 mg PO Q6H PRN PRN Reason: Pain, moderate (4-7) Last Admin: 01/20/18 21:34 Dose: 400 mg Insulin Detemir (Levemir) 15 unit SC ACS [facility] Last Admin: 01/22/18 08:52 Dose: 15 units Insulin Human Regular (Humulin R Low) [address] [facility]; Protocol Last Admin: 01/22/18 18:44 Dose: Not Given Latanoprost (Xalatan Opht) 0 ml OD HS [facility] Last Admin: 01/21/18 22:01 Dose: Not Given Methylprednisolone (Solu-Medrol) 20 mg IVP DAILY [facility] Last Admin: 01/22/18 10:00 Dose: 20 mg Metoprolol Tartrate (Lopressor) 12.5 mg PO Q12 [facility] Last Admin: 01/18/18 14:59 Dose: Not Given Midodrine (Proamatine) 10 mg PO TID [facility] Last Admin: 01/22/18 10:09 Dose: 10 mg Montelukast Sodium (Singulair) 10 mg PO HS [facility] Last Admin: 01/17/18 22:15 Dose: Not Given Ondansetron HCl (Zofran Inj) 4 mg IVP Q6H PRN PRN Reason: Nausea/Vomiting Last Admin: 01/21/18 13:18 Dose: 4 mg Pantoprazole Sodium (Protonix Inj) 40 mg IVP BID [facility] Polyethylene Glycol (Miralax) 17 gm PO DAILY [facility] Saliva Substitute (Saliva Substitute) 0 ml PO Q6 [facility] Last Admin: 01/21/18 17:06 Dose: 1 ml Sevelamer HCl (Renagel) 1,600 mg PO WM [facility] Last Admin: 01/18/18 12:00 Dose: Not Given Verapamil HCl (Verapamil Inj) 2.5 mg IVP Q6H PRN PRN Reason: for heart rate >130 Vitamin A (Vitamin A & D Oint Ud Foilpak) 1 ea TOP Q4 [facility] Last Admin: 01/21/18 17:06 Dose: 1 ea - Labs Labs: 01/22/18 20:30 01/22/18 20:30 PT 25.0 SECONDS (9.4-12.5) H 01/22/18 13:30 INR 2.16 01/22/18 13:30 APTT 36.9 Seconds (25.1-36.5) H 01/20/18 05:30 Assessment and Plan - Assessment and Plan (Free Text) Plan: Patient made DNR <Sharon Goel - Last Filed: 01/23/18 02:31> Objective - Vital Signs/Intake and Output Vital Signs (last 24 hours): Temp Pulse Resp BP Pulse Ox 97 F L 116 H 11 L 82/37 L 83 L 01/22/18 16:00 01/22/18 17:30 01/22/18 14:37 01/22/18 17:30 01/22/18 17:30 Intake and Output: 01/22/18 01/23/18 18:59 06:59 Intake Total 15 Balance 15 - Medications Medications: Current Medications Acetaminophen (Tylenol 325mg Tab) 650 mg PO Q4H PRN PRN Reason: Fever >100.5 F Last Admin: 01/14/18 17:30 Dose: 650 mg Albuterol/Ipratropium (Duoneb 3 Mg/0.5 Mg (3 Ml) Ud) 3 ml IH Q6H [facility] Last Admin: 01/23/18 00:15 Dose: Not Given Alprazolam (Xanax) 0.25 mg PO BID PRN; Protocol PRN Reason: Agitation Stop: 01/23/18 18:01 Last Admin: 01/21/18 21:52 Dose: 0.25 mg Aspirin (Ecotrin) 81 mg PO DAILY [facility] Last Admin: 01/22/18 10:00 Dose: Not Given Atorvastatin Calcium (Lipitor) 20 mg PO DIN [facility] Last Admin: 01/17/18 19:37 Dose: Not Given Brimonidine Tartrate (Alphagan P 0.15% Opht) 0 drop OD Q8 [facility] Last Admin: 01/21/18 22:01 Dose: Not Given Darbepoetin Jovi (Aranesp) 60 mcg IVP Fr@1000 [facility] Last Admin: 01/16/18 09:27 Dose: 60 mcg Doxycycline Hyclate (Doryx) 100 mg PO Q12 [facility]; Protocol Stop: 01/28/18 22:01 Last Admin: 01/22/18 10:09 Dose: 100 mg Ferrous Sulfate (Feosol) 324 mg PO DAILY [facility] Last Admin: 01/22/18 10:11 Dose: 324 mg Folic Acid (Folic Acid) 1 mg PO DAILY [facility] Last Admin: 01/22/18 10:11 Dose: 1 mg Gabapentin (Neurontin) 100 mg PO DAILY [facility]; Protocol Last Admin: 01/22/18 10:11 Dose: 100 mg Heparin Sodium (Porcine) (Heparin) 5,000 units SC Q12 [facility]; Protocol Last Admin: 01/22/18 10:00 Dose: 5,000 units Hydrocortisone Sodium Succinate (Solu-Cortef) 50 mg IVP Q6H [facility] Last Admin: 01/22/18 18:52 Dose: 50 mg Hydromorphone HCl (Dilaudid) 0.5 mg IVP Q4H PRN PRN Reason: Pain, severe (8-10) NOREPINEPHRINE BIT/0.9 % NACL (Levophed 4 Mg/ 250 Ml Ns Premixed) 4 mg in 250 mls @ 15 mls/hr IV .[id number] PRN; Protocol PRN Reason: TITRATE PER MD ORDER Midazolam 100 mg/100ml in NS (Midazolam 100 Mg/100ml In Ns) 100 mg in 100 mls @ 1 mls/hr IV .Q24H PRN; Protocol PRN Reason: Agitation Last Titration: 01/22/18 18:48 Dose: 2 mg/hr, 2 mls/hr Vasopressin 20 units/ Sodium (Chloride) 101 mls @ 9.09 mls/hr IV .Q11H7M [facility]; Protocol Last Admin: 01/22/18 16:04 Dose: 9.09 mls/hr Meropenem/Sodium Chloride (Merrem Iv 500 Mg/Ns 50 Ml) 500 mg in 50 mls @ 12.5 mls/hr IVPB Q8 [facility]; Protocol Stop: 01/31/18 22:01 Sodium Bicarbonate 100 meq/ (Sodium Chloride) 1,100 mls @ 60 mls/hr IV .[id number] [facility] Albumin Human (Albumin Human 25% (12.5 Gm/50 Ml)) 50 mls @ 1 mls/min IVPB Q6H [facility] Stop: 01/23/18 06:19 Ibuprofen (Motrin Tab) 400 mg PO Q6H PRN PRN Reason: Pain, moderate (4-7) Last Admin: 01/20/18 21:34 Dose: 400 mg Insulin Detemir (Levemir) 15 unit SC [facility] Last Admin: 01/22/18 08:52 Dose: 15 units Insulin Human Regular (Humulin R Low) 0 units SC ACHS [facility]; Protocol Last Admin: 01/22/18 18:44 Dose: Not Given Latanoprost (Xalatan Opht) 0 ml OD HS [facility] Last Admin: 01/21/18 22:01 Dose: Not Given Methylprednisolone (Solu-Medrol) 20 mg IVP DAILY [facility] Last Admin: 01/22/18 10:00 Dose: 20 mg Metoprolol Tartrate (Lopressor) 12.5 mg PO Q12 [facility] Last Admin: 01/18/18 14:59 Dose: Not Given Midodrine (Proamatine) 10 mg PO TID [facility] Last Admin: 01/22/18 10:09 Dose: 10 mg Montelukast Sodium (Singulair) 10 mg PO HS [facility] Last Admin: 01/17/18 22:15 Dose: Not Given Ondansetron HCl (Zofran Inj) 4 mg IVP Q6H PRN PRN Reason: Nausea/Vomiting Last Admin: 01/21/18 13:18 Dose: 4 mg Pantoprazole Sodium (Protonix Inj) 40 mg IVP BID [facility] Polyethylene Glycol (Miralax) 17 gm PO DAILY [facility] Saliva Substitute (Saliva Substitute) 0 ml PO Q6 [facility] Last Admin: 01/21/18 17:06 Dose: 1 ml Sevelamer HCl (Renagel) 1,600 mg PO WM [facility] Last Admin: 01/18/18 12:00 Dose: Not Given Verapamil HCl (Verapamil Inj) 2.5 mg IVP Q6H PRN PRN Reason: for heart rate >130 Vitamin A (Vitamin A & D Oint Ud Foilpak) 1 ea TOP Q4 [facility] Last Admin: 01/21/18 17:06 Dose: 1 ea - Labs Labs: 01/22/18 20:30 01/22/18 20:30 PT 25.0 SECONDS (9.4-12.5) H 01/22/18 13:30 INR 2.16 01/22/18 13:30 APTT 36.9 Seconds (25.1-36.5) H 01/20/18 05:30 Attending/Attestation - Attestation I have personally seen and examined this patient.: Yes I have fully participated in the care of the patient.: Yes I have reviewed all pertinent clinical information, including history, physical exam and plan: Yes Notes (Text): 01/23/18 02:29 Agree with resident physician's note. I spoke to daughter Rivka also, she agree to have DNR order instituted. Will leave message at the service of in the morning , nurse in charge of patient instructed.
--- NOTE | 2018-01-23 02:02 | PN ---
DATE: 01/21/2018 SUBJECTIVE: The patient is seen in the ICU. She is undergoing cardiac resuscitation at this time. The patient had ultrafiltration done earlier today. The patient became hypotensive during ultrafiltration. She also had an episode of vomiting. She was awake and alert and agitated during treatment. Post treatment, she vomited again. This time, there were coffee grounds in the vomitus, and then became unresponsive. She was resuscitated. Currently, on mechanical ventilation. The patient received BiPAP x3 and epinephrine x3 during the code. NG tube was placed. She brought up almost a liter of coffee grounds. PHYSICAL EXAMINATION: GENERAL: An obese elderly lady, lying in bed in the ICU, on mechanical ventilation. VITAL SIGNS: Blood pressure 82/37, heart rate 108, respiratory rate 14, and temperature 97. HEENT: Normocephalic, atraumatic. Pupils sluggish, reactive to light. NECK: Supple. No JVD. LUNGS: Bilaterally equal air entry, bilateral rhonchi, bilateral equal expansion noted. CARDIAC: S1 and S2, regular rate and rhythm, no murmur, no rub. ABDOMEN: Obese, distended, soft, nontender, bowel sounds present. EXTREMITIES: Trace lower extremity edema. LABORATORY DATA: Labs done during the code. WBC 44.9, hemoglobin 13.6, hematocrit 44, platelet 226. Sodium 139, potassium 3.1, chloride 103, CO2 23, BUN 25, creatinine 2.7, glucose 86, calcium 7.8, albumin 2.7. Blood gas: PH 7.04, pCO2 76, pO2 36. CURRENT MEDICATIONS: Aranesp, doxycycline 100 every 12 hours, DuoNeb, Ecotrin, Feosol, folic acid, Levophed, Lipitor, Lopressor, Merrem 500 mg every 8 hours, ibuprofen, gabapentin, ProAmatine 10 b.i.d., Protonix, Renagel, Singulair, Solu-Cortef, Solu-Medrol, and Zosyn. ASSESSMENT: 1. Cardiac arrest, successful resuscitation. 2. Possible aspiration pneumonia. 3. Respiratory failure. 4. Hypercapnic respiratory acidosis. 5. Severe profound hypotension. 6. Possible gastrointestinal bleed. 7. Coronary artery disease, cardiomyopathy. 8. Dkg-grkmnxu-nbxuneoca diabetes mellitus. 9. End-stage renal disease. 10. Hypokalemia. PLAN: The patient was critically ill with multiple medical problems, including circulatory shock, respiratory failure, respiratory acidosis. Currently, on mechanical ventilation. Received 1 unit of blood today. Continue monitor in the ICU. The patient did have ultrafiltration earlier today. We will assess for dialysis tomorrow. Case was discussed with Dr. Garrett, case was discussed with ICU nursing staff, case was discussed with dialysis staff at length. More than 35 minutes spent on the care of this critically ill patient. Marlyn Snow MD MTDD
--- NOTE | 2018-01-23 02:48 | PN ---
DATE: 01/22/2018 SUBJECTIVE: The patient is a 73-year-old lady. The patient was seen and examined at bedside on 01/22/2018. rapid response because of the patient's shortness of breath and hematemesis. Discussion done with Dr. Snow and rapid response team, family was informed. PHYSICAL EXAMINATION: VITAL SIGNS: Blood pressure 87/52, pulse 83, oxygen saturation 95%, respiratory rate 15. HEENT: Head is normocephalic, atraumatic. Eyes are closed. Nose patent. NECK: Supple. No carotid bruit. No JVD or thyromegaly. LUNGS: Rhonchi bilaterally. CARDIOVASCULAR: S1 and S2 positive. ABDOMEN: Distended and nontender. No organomegaly. EXTREMITIES: Trace edema. NEUROLOGIC: The patient is intubated, cannot get neurological examination. MEDICATIONS: Tylenol, DuoNeb, Xopenex, aspirin, Lipitor, Aranesp, doxycycline, ferrous sulfate, heparin, Motrin, Levemir, Solu-Medrol, tapering doses of Singulair, Protonix, MiraLax. LABORATORY DATA: White blood cells 17.2, in the morning 14.9; PT 17.7; hemoglobin 13.7; hematocrit 44.4; platelets 154. Sodium 140, potassium 2.5 and in the morning it was 3.1, BUN 24, creatinine 2.9, glucose 46. Troponin positive at 0.21. ASSESSMENT AND PLAN: Mrs. Debby Olguin is a 73-year-old lady with hypokalemia replaced, hyperchloremia, renal insufficiency, hyperglycemia, hypocalcemia, iron deficiency, has rapid response today, is intubated, family was informed by rapid response team. The patient has history of chronic obstructive pulmonary disease, asthma, kidney failure on hemodialysis, now she has aspiration pneumonia. Gastrointestinal, deep venous thrombosis prophylaxis. Repeat labs. We will follow up. Taylor House MD
[2018-01-23 05:29] VITALS: PULSE 34; RESP 13
--- NOTE | 2018-01-23 06:06 | PCM.RRT ---
<Iman Da Silva - Last Filed: 01/23/18 06:20> SUPERVISOR CD AREA Nurse Assessment - Situation Date: 01/23/18 Time SUPERVISOR CD AREA was called: 21:44 SUPERVISOR CD AREA Responder Arrival Time: 21:47 SUPERVISOR CD AREA Location:: Critical Care Unit Room Number: 129-6 SUPERVISOR CD AREA Reason for Call: Bradycardia, Hypotension SUPERVISOR CD AREA Called By: RN - Respiratory Oxygen Delivery Method: Intubated Oxygen Flow Rate: 5 - Medication Medications Administered During SUPERVISOR CD AREA: 1/2 amp 50% dextrose - Stat Labs Ordered SUPERVISOR CD AREA Stat Labs Ordered: ABG CPR started during SUPERVISOR CD AREA?: Yes - Vital Signs Vital Sign: Rapid Response Vital Sign Blood Pressure 53/26 Pulse Rate 88 Respiratory Rate 18 Temperature 99 F Oxygen Saturation 95 I.Reason for SUPERVISOR CD AREA - A) Acute Change in Patient: Subjective: 73 year old female with PMH of ESRD on hemodialysis MWF, HTN, CAD, DM, CVA diastolic CHF, COPD, CVA, legally blind and anemia being managed in the ICU for hypercapnic respiratory failure had code stevie called at 9:44pm for the 4th time in the last 24 hours. Patient noted to be in PEA with HR in the 30s and chest compressions subsequently started. 1mg of epinephrine give and 2 units of bicarb with total of one round of CPR with ROSC with HR in the 130s and BP of 127/15. Patient had fifth code blue called at 12:20am due to PEA with HR in the 40s. Total of 3 rounds of chest compression were performed with total of 3mg of epinephrine and 2 units bicarb administered. Patient achieved ROSC with HR in the 150s and BP of 86/33. Vitals have stabilized and patient's is currently on PRVC ventilation . - Neurological Status Other (Please specify): sedated - Respiratory Oxygen Delivery Method: Nasal Cannula @L/min, Intubated Oxygen Flow Rate: 5 - Constitutional Additional Comments: sedated - Head Head Exam: ATRAUMATIC, NORMAL INSPECTION - Eyes Eye Exam: PERRL - Respiratory Exam Respiratory Exam: absent: Rhonchi, Wheezes, Respiratory Distress Additional comments: on ventilator PRVC - Cardiovascular Exam Cardiovascular Exam: Tachycardia, +S1, +S2 - GI/Abdominal Exam GI & Abdominal Exam: Soft, Normal Bowel Sounds. absent: Guarding, Rigid - Neurological Exam Additional exam: sedated, non responsive - Extremities Exam Additional comments: pedal pulses +2 B/L Plan - Assessment of Findings&Treatment Plan -continue vassopressin and levophed -start dopamine -continue sedation -continue PRVC ventilation, target low tidal volume support -continue doxycycline, merrem, zosyn -pancultures pending -NS 40cc/hr -replaced potassium, f/u labs -ABG -monitor in the ICU -poor prognosis <Sharon Goel - Last Filed: 01/23/18 06:59> SUPERVISOR CD ARE[employer] Nurse Assessment - Vital Signs Vital Sign: Rapid Response Vital Sign Blood Pressure 53/26 Pulse Rate 88 Respiratory Rate 18 Temperature 99 F Oxygen Saturation 95 Attending/Attestation - Attestation I have personally seen and examined this patient.: Yes I have fully participated in the care of the patient.: Yes I have reviewed all pertinent clinical information, including history, physical exam and plan: Yes
--- NOTE | 2018-01-23 06:21 | CP.PCM.PRO ---
Pronouncement of Note - Clinical Findings Physical Exam: No Response Verbal/Painful Stimuli, Absent Peripheral Puls es{Carotid & Femoral}, Absent Heart & Breath Sounds, No Pupillary Light Reflex, No Corneal Reflex, Pupils Fixed & Dilated, Absence of Vital Signs - Pronouncement Time Time of Pronouncement of : 04:45 - Notifications Pronouncement Notifications: Family Notified, Atending Notified - [place] [id number]
--- NOTE | 2018-01-23 09:17 | RAD ---
Date of service: 01/22/2018 HISTORY: s/p code COMPARISON: 12/09/2017 FINDINGS: BOWEL: Mildly dilated small bowel loops. Nasogastric tube in satisfactory position BONES: Normal. OTHER FINDINGS: None. IMPRESSION: Mildly dilated small bowel loops. Nasogastric tube in satisfactory position
--- NOTE | 2018-01-23 16:23 | CARD ---
APPROVED REPORT Date of service: 01/22/2018 EKG Measurement Heart [id number] [id number] <Conclusion> Sinus tachycardia Left axis deviation Pulmonary disease pattern Septal infarct, age undetermined Inferolateral injury pattern ACUTE ND Abnormal ECG
== END 2018-01-23 08:57 | DRG 312 ==
LOC: ED 15:46 → ERH 20:55 → 3RSO 01-13 00:20 → OBSVTOIN 01-13 22:54 → CCU 01-17 14:05
PROVIDERS: ADMIT Internal Medicine; ATTEND Internal Medicine
PROC: 5A09457 Assistance with Respiratory Ventilation, 24-96 Consecutive Hours, Continuous Positive Airway Pressure (ICD-10-PCS; 2018-01-14)
PROC: 5A1D70Z Performance of Urinary Filtration, Intermittent, Less than 6 Hours Per Day (ICD-10-PCS; 2018-01-14)
PROC: 5A1D70Z Performance of Urinary Filtration, Intermittent, Less than 6 Hours Per Day (ICD-10-PCS; 2018-01-16)
PROC: 5A1D70Z Performance of Urinary Filtration, Intermittent, Less than 6 Hours Per Day (ICD-10-PCS; 2018-01-19)
PROC: 5A1935Z Respiratory Ventilation, Less than 24 Consecutive Hours (ICD-10-PCS; principal; 2018-01-22)
PROC: 0BH17EZ Insertion of Endotracheal Airway into Trachea, Via Natural or Artificial Opening (ICD-10-PCS; 2018-01-22)
PROC: 06HY33Z Insertion of Infusion Device into Lower Vein, Percutaneous Approach (ICD-10-PCS; 2018-01-22)
PROC: 5A1D70Z Performance of Urinary Filtration, Intermittent, Less than 6 Hours Per Day (ICD-10-PCS; 2018-01-22)
DX: I95.3 Hypotension of hemodialysis (principal); N18.6 End stage renal disease; J96.22 Acute and chronic respiratory failure with hypercapnia; J69.0 Pneumonitis due to inhalation of food and vomit; I13.2 Hypertensive heart and chronic kidney disease with heart failure and with stage 5 chronic kidney disease, or end stage renal disease; I42.9 Cardiomyopathy, unspecified; N25.81 Secondary hyperparathyroidism of renal origin; E87.2 Acidosis; I50.32 Chronic diastolic (congestive) heart failure; K92.0 Hematemesis; Z95.5 Presence of coronary angioplasty implant and graft; I25.10 Atherosclerotic heart disease of native coronary artery without angina pectoris; E11.22 Type 2 diabetes mellitus with diabetic chronic kidney disease; E11.65 Type 2 diabetes mellitus with hyperglycemia; D63.1 Anemia in chronic kidney disease; Z99.2 Dependence on renal dialysis; J44.9 Chronic obstructive pulmonary disease, unspecified; I27.20 Pulmonary hypertension, unspecified; F41.9 Anxiety disorder, unspecified; R07.89 Other chest pain; E87.5 Hyperkalemia; E11.40 Type 2 diabetes mellitus with diabetic neuropathy, unspecified; E83.39 Other disorders of phosphorus metabolism; G47.33 Obstructive sleep apnea (adult) (pediatric); F03.90 Unspecified dementia, unspecified severity, without behavioral disturbance, psychotic disturbance, mood disturbance, and anxiety; H54.8 Legal blindness, as defined in USA; Z66 Do not resuscitate; E78.5 Hyperlipidemia, unspecified; Z51.5 Encounter for palliative care; Z79.4 Long term (current) use of insulin; Z86.73 Personal history of transient ischemic attack (TIA), and cerebral infarction without residual deficits; Z87.01 Personal history of pneumonia (recurrent); Z91.14 Patient's other noncompliance with medication regimen; Z91.19 Patient's noncompliance with other medical treatment and regimen